=== PATIENT | female | born 1950 | race African-American/Black ===

== ENCOUNTER 2017-01-15 09:18 | Observation (INO) | payer OTHER ==
[~2017-01-15] VITALS: Ht 170.2 cm; Wt 145.1 kg
[~2017-01-15 09:18] MED LIST: ALLO100T PO; ALPR0.254 PO; AZIT250T PO; CALC600T4 PO; CETI10TA22 PO; CINA30TA PO; CITA10TA8 PO; CLON0.1T PO; CLOP75TA PO; CYCL10TA2 PO; GABA-586 PO; HYDR-2666 PO; INSU100I17 SQ; INSU100I27 SQ; LEVE500T56 PO; METO10TA81 PO; OMEP20CA9 PO; PRED-220 PO; PROAIR HFA8.5 GM IH; SENN8.6C2 PO; SIMV40TA3 PO; VIT1TABL PO
--- NOTE | 2017-01-15 10:41 | RAD ---
Portable chest, 01/15/2017: History: Syncope Comparison is made to a study from 07/31/2015. Vascular stents are projected over the right innominate and subclavian vein regions. The heart is enlarged. The pulmonary vascularity is within normal limits. There is minimal linear scarring in the left base. No acute infiltrates are seen. There is no evidence of pleural fluid. There is been no significant change since the previous study. IMPRESSION: 1. Mild cardiomegaly. 2. No acute abnormality is detected.
[2017-01-15 11:49] LABS: BASO % 1 % (0-3); EOS % 1 % (0-3); HEMATOCRIT 40.2 % (36.0-47.0); HEMOGLOBIN 12.8 g/dL (12.0-15.5); LYMPH # 0.9 x10^3/uL (1.0-4.8); LYMPH % 15 % (24-48); MEAN CORPUSCULAR HEMOGLOBIN 32 pg (25-35); MEAN CORPUSCULAR HGB CONC 32 g/dL (31-37); MEAN CORPUSCULAR VOLUME 100 fL (79-100); MONO % 8 % (0-9); NEUT % 76 % (31-73); PLATELET COUNT 128 x10^3/uL (140-400); RED BLOOD COUNT 4.03 x10^6/uL (3.50-5.40); RED CELL DISTRIBUTION WIDTH 14.5 % (11.5-14.5); WHITE BLOOD COUNT 6.4 x10^3/uL (4.0-11.0)
--- NOTE | 2017-01-15 11:50 | EKG ---
[facility] [address] [place] [address] Test Date: 2017-01-15 Test Time: 10:10:24 Pat Name: MARKUS HE Department: Room: Gender: F [employer] Maker: : 1950 Requested By: MIGUE MARTE Order Number: [id number] Reading MD: Ilana Gar Measurements Intervals [place] Rate: 77 P: 45 UT: 168 QRS: 48 QRSD: 86 T: 47 QT: 400 QTc: 455 Interpretive Statements SINUS RHYTHM NORMAL EKG Electronically Signed On 01-17-2017 20:16:47 [employer] by Ilana Gar
[2017-01-15 11:56] LABS: CALCIUM 8.8 mg/dL (8.5-10.1); CREATININE 7.2 mg/dL (0.6-1.0); GFR 6.9; POTASSIUM 5.2 mmol/L (3.5-5.1)
[2017-01-15 12:01] LABS: ALBUMIN 3.2 g/dL (3.4-5.0); DIRECT BILIRUBIN 0.1 mg/dL (0.0-0.2); TOTAL BILIRUBIN 0.4 mg/dL (0.2-1.0); TOTAL PROTEIN 7.7 g/dL (6.4-8.2)
--- NOTE | 2017-01-15 12:44 | PHYS DOC ---
Past Medical History Past Medical History: CVA, Diabetes-Type II, Renal Disease, Renal Failure, Seizure, Other Past Surgical History: Other Additional Past Surgical Histo: Dialysis shunt R) upper arm being used, shunt in left arm-not used anymore. Alcohol Use: None Drug Use: None Adult General Chief Complaint Chief Complaint: SYNCOPE HPI HPI 66-year-old female presenting to the emergency department today after having a syncopal episode while at dialysis today. EMS reports they were taking fluid off when she passed out. She arrives by EMS today. She denies any pain or shortness of breath. Currently she reports feeling "fine". She does have a history of a CVA at the past for which she uses a motorized wheelchair. EMS reports the patient is a baseline neurologic condition. Onset today. Location generalized. Duration intermittent. No alleviating factors present. Review of systems is negative for chest pain shortness of breath nausea vomiting diarrhea. All other review of systems is negative unless otherwise noted in history of present illness. Review of Systems Review of Systems SEE ABOVE. Current Medications Current Medications Current Medications Medications (Trade) Dose Ordered Sig/Yumiko Start Time Stop Time Status Last Admin Dose Admin Morphine Sulfate 2 mg PRN Q2HR PRN 01/15/17 13:15 01/16/17 13:14 Ondansetron HCl (Zofran) 4 mg PRN Q8HRS PRN 01/15/17 13:15 01/16/17 13:14 Allergies Allergies Allergies Coded Allergies Type Severity Reaction Last Updated Verified No Known Drug Allergies 07/19/15 No Physical Exam Physical Exam Constitutional: Well developed, well nourished, no acute distress, non-toxic appearance. HENT: Normocephalic, atraumatic, bilateral external ears normal, oropharynx moist, no oral exudates, nose normal. [] Eyes: PERRLA, EOMI, conjunctiva normal, no discharge. Neck: Normal range of motion, no tenderness, supple, no stridor. [] Cardiovascular:Heart rate regular rhythm, no murmur Lungs & Thorax: Bilateral breath sounds clear to auscultation Abdomen: Bowel sounds normal, soft, no tenderness, no masses, no pulsatile masses. [] Skin: Warm, dry, no erythema, no rash. Back: No tenderness, no CVA tenderness. Extremities: No tenderness, no cyanosis, no clubbing, ROM intact, no edema. Neurologic: Alert and oriented X 3, patient has residual left-sided weakness from history of CVA in the past. Normal sensory function, no new focal neurologic deficits present. Psychologic: Affect normal, judgement normal, mood normal. [] Current Patient Data Vital Signs Vital Signs Date Time Temp Pulse Resp B/P Pulse Ox O2 Delivery O2 Flow Rate FiO2 01/15/17 09:18 97.8 80 21 136/62 100 Nasal Cannula 2 97.8 Lab Values Laboratory Tests Test 01/15/17 11:40 White Blood Count 6.4x10^3/uL (4.0-11.0) Red Blood Count 4.03x10^6/uL (3.50-5.40) Hemoglobin 12.8g/dL (12.0-15.5) Hematocrit 40.2% (36.0-47.0) Mean Corpuscular Volume 100fL (79-100) Mean Corpuscular Hemoglobin 32pg (25-35) Mean Corpuscular Hemoglobin Concent 32g/dL (31-37) Red Cell Distribution Width 14.5% (11.5-14.5) Platelet Count 128x10^3/uL (140-400) L Neutrophils (%) (Auto) 76% (31-73) H Lymphocytes (%) (Auto) 15% (24-48) L Monocytes (%) (Auto) 8% (0-9) Eosinophils (%) (Auto) 1% (0-3) Basophils (%) (Auto) 1% (0-3) Neutrophils # (Auto) 4.9x10^3uL (1.8-7.7) Lymphocytes # (Auto) 0.9x10^3/uL (1.0-4.8) L Monocytes # (Auto) 0.5x10^3/uL (0.0-1.1) Eosinophils # (Auto) 0.0x10^3/uL (0.0-0.7) Basophils # (Auto) 0.0x10^3/uL (0.0-0.2) Sodium Level 143mmol/L (136-145) Potassium Level 5.2mmol/L (3.5-5.1) H Chloride Level 103mmol/L (98-107) Carbon Dioxide Level 31mmol/L (21-32) Anion Gap 9 (6-14) Blood Urea Nitrogen 55mg/dL (7-20) H Creatinine 7.2mg/dL (0.6-1.0) H Estimated GFR (Cockcroft-Gault) 6.9 Glucose Level 157mg/dL (70-99) H Lactic Acid Level 1.4mmol/L (0.4-2.0) Calcium Level 8.8mg/dL (8.5-10.1) Total Bilirubin 0.4mg/dL (0.2-1.0) Direct Bilirubin 0.1mg/dL (0.0-0.2) Aspartate Amino Transferase (AST) 22U/L (15-37) Alanine Aminotransferase (ALT) 16U/L (14-59) Alkaline Phosphatase 80U/L (46-116) Troponin I Quantitative < 0.017ng/mL (0.000-0.055) DD-Mzg-V-Type Natriuretic Peptide 284pg/mL (0-124) H Total Protein 7.7g/dL (6.4-8.2) Albumin 3.2g/dL (3.4-5.0) L Lipase 238U/L (73-393) Laboratory Tests 01/15/17 11:40 Laboratory Tests 01/15/17 11:40 EKG EKG []EKG shows sinus rhythm with regular rate. Normal intervals. Normal axis. ST segments are congruent. Not suggestive of ACS. Reviewed by myself. Radiology/Procedures Radiology/Procedures [] Course & Med Decision Making Course & Med Decision Making Pertinent Labs and Imaging studies reviewed. (See chart for details) 66-year-old female presenting to the emergency department today with syncopal episode. Vital signs afebrile normal heart rate. Satting 2 L which is baseline. Physical exam was otherwise unremarkable. Patient had a history of an old CVA no new deficits present. EKG unremarkable. Chest x-ray unremarkable. Lead work obtained which showed normal CBC. Chemistry panel shows end-stage renal disease. The patient's family arrived later in the emergency department course. I sat down and talked with them. They said their mother was more somnolent than baseline. On my second examination the patient opened her eyes spontaneously she answered questions appropriately. GCS of 15. The patient was then admitted to our hospital for further evaluation workup and care including telemetry monitoring. Neurology and nephrology consult. Shanikaon Disclaimer Dragon Disclaimer This electronic medical record was generated, in whole or in part, using a voice recognition dictation system. Departure Departure Impression: Primary Impression: Syncope Additional Impressions: ESRD (end stage renal disease) Old cerebrovascular accident (CVA) without late effect Disposition: 09 ADMITTED INPATIENT Admitting Physician: Luca Lobo Condition: STABLE Referrals: LUCA LOBO MD (PCP) Patient Instructions: Dialysis, Syncope Problem Qualifiers MIGUE MARTE MD Jan 15, 2017 12:44
[2017-01-15] MEDS ORDERED: ONDANSETRON PF 4 MG/2 ML VIAL. IV PRN (13:15)
[2017-01-15] MEDS ORDERED: MORPHINE SULFATE 2 MG/ML DISP.SYRIN. IV PRN (13:15)
--- NOTE | 2017-01-15 13:55 | RAD ---
EXAM: Left knee, 3 views HISTORY: Left knee pain after a fall.. COMPARISON: 02/25/2012. FINDINGS: Osteopenia is moderate to severe. A Pelligrini-Stieda lesion is noted medially. Alignment is normal. There is no joint effusion. There are limitations from underpenetration. Atherosclerotic calcifications are noted. There is no joint effusion. There is [id number] tricompartmental joint space narrowing. IMPRESSION: 1. Limited projections. No fracture. 2. Moderate to severe osteopenia. 3. Mild to moderate tricompartmental osteoarthritis. 4. Chronic injury to the medial collateral ligament.
--- NOTE | 2017-01-15 13:56 | RAD ---
EXAM: Frontal pelvis with 2V left hip. HISTORY: Left hip pain after fall. COMPARISON: 01/12/2012. FINDINGS: There are limitations from severe osteopenia. Sensitivity for nondisplaced fractures is decreased. None are seen. There is some rotational to the left. Osteoarthritis is mild to moderate on the left greater than right. There are moderate degenerative changes of the lower lumbar spine. Atherosclerotic calcifications are noted IMPRESSION: 1. Severe osteopenia significantly lowers sensitivity for nondisplaced fractures. None are seen. 2. Mild to moderate bilateral hip osteoarthritis. 3. Correlate for chronic ileus.
--- NOTE | 2017-01-15 14:09 | RAD ---
EXAM: CT head without contrast. HISTORY: Syncope. TECHNIQUE: Computed tomography of the head was performed without intravenous contrast. COMPARISON: 07/31/2015. FINDINGS: There is no intracranial hemorrhage. There is encephalomalacia secondary to chronic right parietal infarct, stable. Mild hypoattenuation within the periventricular white matter indicates mild chronic small vessel ischemic change. The ventricles are normal in size and position. The visualized paranasal sinuses appear clear. There is moderate appearing bilateral proptosis. There is no orbital mass. The temporal bones are unremarkable. The calvarium reveals no suspicious lesions. IMPRESSION: 1. No acute intracranial findings. 2. Chronic right parietal infarct. Mild chronic small vessel ischemic white matter change. 3. Bilateral proptosis without an orbital mass. Correlate clinically. *One or more of the following individualized dose reduction techniques were utilized for this examination: 1. Automated exposure control. 2. Adjustment of the mA and/or kV according to patient size. 3. Use of iterative reconstruction technique.
--- NOTE | 2017-01-15 14:30 | ACF ---
Admission Forms Criteria RENAL FAILURE, CHRONIC Clinical Indications for Admission to Inpatient Care (Place 'X' for any and all applicable criteria): Admission is indicated for ANY ONE of the following (1)(2)(3)(4)(5): [ ]I. Inpatient admission required rather than observation care (Use Renal Failure, Chronic: Observation Care Criteria as appropriate) because of ANY ONE of the following: [ ]a) Volume overload or uremic symptoms (eg, clinically significant pulmonary edema, hypertension, pericarditis, acidosis) too severe for, or not responsive (eg, for over 24 hours) to emergency department or observation care dialysis or treatment regimen (11) [ ]b) Hemodynamic instability that is severe or persistent [ ]c) Respiratory distress that is severe or persistent (11) [ ]d) Clinically significant electrolyte abnormality that requires inpatient care (eg,hyperkalemia with severe ECG findings)[B] [ ]e) Supplement O2 or respiratory therapy for over 24hrs that is performable only in acute inpatient setting [ ]f) Continuous IV infusion of anticoagulation, platelet inhibitor, vasoactive, or Antiarrhythmic medication (15), [ ]g) Pulmonary artery catheter monitoring [ ]h) Temporary pacemaker placement [ ]i) Emergent pericardiocentesis [ ]j) Other condition, treatment or monitoring requiring inpatient admission [X]II. Unexplained syncope [A] [ ]III. Recurrent seizures [ ]IV. Severe infections not treatable in outpatient setting (eg, peritonitis)(9 ) [ ]V. Cardiac arrhythmias of immediate concern [ ]. Encephalopathy [ ]VII.Bleeding abnormalities (eg, platelet dysfunction) with active (eg, gastrointestinal) bleeding Extended stay beyond goal length of stay may be needed for (3)(4)(35)(36): [ ]a) Continuing uremic complications [ ]b) Comorbidities or complications The original [email or web address] content created by [employer] has been revised. The portions of the content which have been revised are identified through the use of italic text or in bold, and [email or web address] has neither reviewed nor approved the modified material. All other unmodified content is copyright [employer]. Please see references footnoted in the original [email or web address] edition 2016 Admission Criteria Met?: Yes CHITO POWELL Jan 15, 2017 14:30
[2017-01-15] MEDS ORDERED: HYDROCODONE/APAP 5/325MG TABLET. PO PRN (16:15)
[2017-01-15] MEDS ORDERED: NON FORMULARY ITEM (Albuterol Sulfate (Proair Hfa Inhaler) 2 PUFF) IH SCH (16:15)
[2017-01-15] MEDS ORDERED: ALPRAZOLAM 0.25 MG TABLET PO PRN (16:15)
[2017-01-15 16:30] VITALS: BP 142/58
[2017-01-15] MEDS ORDERED: ALBUTEROL SULFATE 2.5 MG/3 ML NEBU. NEB PRN (16:30)
[2017-01-15] MEDS ORDERED: DEXTROSE 50% 25 GM / 50ML DISP.SYRIN. IV PRN (16:30)
[2017-01-15] MEDS: INSULIN ASPART 300 UNITS/3 ML INSULN.PEN SQ SCH (17:00)
[2017-01-15] MEDS: CALCIUM ACETATE 667 MG CAPSULE PO SCH (18:25)
[2017-01-15] MEDS: METOCLOPRAMIDE 10 MG TABLET PO SCH ×2 (18:25→21:56)
[2017-01-15 19:05] VITALS: BP 140/56
[2017-01-15] MEDS ORDERED: GABAPENTIN 300 MG CAPSULE. PO SCH (21:00)
[2017-01-15] MEDS: SENNOSIDES 8.6 MG TABLET PO SCH (21:55)
[2017-01-15] MEDS: CETIRIZINE HCL 10 MG TABLET PO SCH (21:55)
[2017-01-15] MEDS: SIMVASTATIN 40 MG TABLET. PO SCH (21:55)
[2017-01-15] MEDS: LEVETIRACETAM 500 MG TABLET PO SCH (21:57)
[2017-01-15] MEDS: HEPARIN PF for SUB-Q USE 5,000 UNIT/0.5 ML VIAL. SQ SCH (22:12)
[2017-01-15] MEDS: INSULIN DETEMIR 300 UNITS/3 ML INSULN.PEN. SQ SCH (22:13)
[2017-01-15 23:10] VITALS: BP 142/69
[2017-01-16] VITALS (7 sets, daily range): BP systolic 120–150; BP diastolic 41–71
[2017-01-16] MEDS ORDERED: XOPENEX HFA15 GM IH (02:33)
[2017-01-16] MEDS ORDERED: phoslo PO (02:56)
[2017-01-16] MEDS ORDERED: NALO25TA2 PO (02:56)
[2017-01-16] MEDS: HEPARIN PF for SUB-Q USE 5,000 UNIT/0.5 ML VIAL. SQ SCH ×2 (06:12→22:20)
[2017-01-16] MEDS: INSULIN ASPART 300 UNITS/3 ML INSULN.PEN SQ SCH ×3 (08:00→17:12)
[2017-01-16] MEDS: LEVETIRACETAM 500 MG TABLET PO SCH ×2 (08:00→22:14)
[2017-01-16] MEDS: PANTOPRAZOLE 40 MG TABLET. PO SCH (08:00)
[2017-01-16] MEDS: SENNOSIDES 8.6 MG TABLET PO SCH (08:00)
[2017-01-16] MEDS: CLOPIDOGREL BISULFATE 75 MG TABLET PO SCH (08:00)
[2017-01-16] MEDS: METOCLOPRAMIDE 10 MG TABLET PO SCH ×4 (08:01→22:13)
[2017-01-16] MEDS: CALCIUM ACETATE 667 MG CAPSULE PO SCH ×3 (08:01→17:10)
[2017-01-16] MEDS: CINACALCET HCL 30 MG TABLET PO SCH (08:08)
[2017-01-16] MEDS: ALLOPURINOL 100 MG TABLET. PO SCH (08:08)
[2017-01-16] MEDS: CITALOPRAM 10 MG TABLET. PO SCH (08:08)
[2017-01-16] MEDS ORDERED: VITAMIN B COMPLEX TABLET. PO SCH (09:00)
--- NOTE | 2017-01-16 09:56 | PDOC1 ---
HISTORY AND PHYSICAL Chief Complaint Chief Complaint This 66 year old female has been admitted with a chief complaint of syncope. She is ESRD patient with hemodialysis 3 times weekly. She missed dialysis on Wednesday due to acute on chronic L sided pain. She went to dialysis yesterday and after completing she became unresponsive. She was transported to ED by EMS. Labs were unremarkable except for K 5.2. EKG SR no acute changes. Xrays of the L knee: osteopenia, tricompartment DJD, and chronic medial lat ligament injury. Xray pelvixs and hips: osteopenia and OA. She is admitted for further evaluation and treatment. Problem List Problems Medical Problems: (1) ESRD (end stage renal disease) Status: Acute (2) Old cerebrovascular accident (CVA) without late effect Status: Acute (3) Syncope Status: Acute Past Medical History Cardiovascular: CHF, HTN, Hyperlipidemia CENTRAL NERVOUS SYSTEM: CVA (R parietal ), Seizure GI: Constipation, Other Heme/Onc: Anemia NOS Psych: Depression Musculoskeletal: Osteoarthritis (L knee, bilateral hip ), Other Rheumatologic: Gout ENT: Allergic Rhinitis Renal/: Chronic renal failure (ESRD hemodialysis 3x/week), Other Endocrine: Diabetes (type II neuropathy chronic insulin ), Hypothyroidism, Hyperparathyroidism (secondary ), Osteopenia Past Surgical History Past Surgical History: Cholecystectomy, , Hysterectomy Past Family History Family History: Coronary Artery Disease, Hypertension, Kidney Disease Past Social History PSH negative h/o tobacco, EtOH or illicit drug use. Review of Symptoms Review of Symptoms A 14 point ROS was completed with the following noted as positive: Other systems reviewed and negative. Medications Current Medications Acetaminophen/ Hydrocodone Bitart (Lortab 5/325) 1 tab PRN Q6HRS PRN PO PAIN; Start 01/15/17 at 16:15 Albuterol Sulfate (Ventolin Neb Soln) 2.5 mg PRN Q4HRS PRN NEB SHORTNESS OF BREATH; Start 01/15/17 at 16:30 Allopurinol (Zyloprim) 100 mg DAILY PO Last administered on 01/16/17t 08:08; Start 01/16/17 at 09:00 Alprazolam (Xanax) 0.25 mg PRN BID PRN PO ANXIETY / AGITATION; Start 01/15/17 at 16:15 Calcium Acetate (Phoslo) 1,334 mg TIDWMEALS PO Last administered on 01/16/17 08:01; Start 01/15/17 at 17:00 Cetirizine HCl (Zyrtec) 10 mg HS PO Last administered on 01/15/17 21:55; Start 01/15/17 at 21:00 Cinacalcet (Sensipar) 30 mg DAILY PO Last administered on 01/16/17 08:08; Start 01/16/17 at 09:00 Citalopram Hydrobromide (Celexa) 10 mg DAILY PO Last administered on 01/16/17 08:08; Start 01/16/17 at 09:00 Clopidogrel Bisulfate (Plavix) 75 mg DAILYWBKFT PO Last administered on 08:00; Start 01/16/17 at 08:00 Dextrose 12.5 gm PRN Q15MIN PRN IV SEE COMMENTS; Start 01/15/17 at 16:30 Gabapentin (Neurontin) 300 mg HS PO Last administered on 01/15/17 21:55; Start 01/15/17 at 21:00 Heparin Sodium (Porcine) 5,000 unit Q8HRS SQ Last administered on 01/16/17 06: 12; Start 01/15/17 at 22:00 Insulin Aspart (Novolog) 0-7 UNITS TIDWMEALS SQ Last administered on 01/15/17 17:00; Start 01/15/17 at 17:00 Insulin Detemir (Levemir) 30 units QHS SQ Last administered on 01/15/17 22:13 ; Start 01/15/17 at 21:00 Levetiracetam (Keppra) 500 mg BID PO Last administered on 01/16/17 08:00; Start 01/15/17 at 21:00 Metoclopramide HCl (Reglan) 5 mg QIDACHS PO Last administered on 01/16/17 08: 01; Start 01/15/17 at 16:30 Morphine Sulfate 2 mg PRN Q2HR PRN IV PAIN; Start 01/15/17 at 13:15; Stop 01/16 at 13:14 Non-Formulary Medication 2 puff PRN Q4-6HRS IH ; Start 01/15/17 at 16:15; Status UNV Ondansetron HCl (Zofran) 4 mg PRN Q8HRS PRN IV NAUSEA/VOMITING; Start 01/15/17 at 13:15; Stop 01/16/17 at 13:14 Pantoprazole Sodium (Protonix) 40 mg DAILYAC PO Last administered on 01/16/17 08:00; Start 01/16/17 at 07:30 Sennosides (Senna) 8.6 mg BID PO Last administered on 01/16/17 08:00; Start at 21:00 Simvastatin (Zocor) 40 mg QHS PO Last administered on 01/15/17 21:55; Start at 21:00 Vitamin B Complex (Filippo B) 1 tab DAILY PO Last administered on 01/16/17 08:07 ; Start 01/16/17 at 09:00 Allergy Allergies Coded Allergies Type Severity Reaction Last Updated Verified No Known Drug Allergies 07/19/15 No Physical Exam Physical Exam General appearance - alert,well appearing, and in no distress and oriented to person, place, and time Mental Status - alert, oriented to person, place, and time, affect appropriate to mood Head - normal Chest - clear to auscultation, no wheezes, rales or rhonchi, symmetric air entry Heart - S1 and S2 normal Abdomen - soft, nontender, nondistended, no masses or organomegaly Neurological - alert and oriented Musculoskeletal - no muscular tenderness noted Extremities - no pedal edema Skin - warm and dry VTE Prophylaxis Ordered VTE Prophylaxis Devices: No VTE Pharmacological Prophylaxi: No Assessment Labs Laboratory Tests Test 01/15/17 11:40 01/15/17 18:00 01/15/17 22:04 01/16/17 07:16 White Blood Count 6.4x10^3/uL (4.0-11.0) Red Blood Count 4.03x10^6/uL (3.50-5.40) Hemoglobin 12.8g/dL (12.0-15.5) Hematocrit 40.2% (36.0-47.0) Mean Corpuscular Volume 100fL (79-100) Mean Corpuscular Hemoglobin 32pg (25-35) Mean Corpuscular Hemoglobin Concent 32g/dL (31-37) Red Cell Distribution Width 14.5% (11.5-14.5) Platelet Count 128x10^3/uL (140-400) Neutrophils (%) (Auto) 76% (31-73) Lymphocytes (%) (Auto) 15% (24-48) Monocytes (%) (Auto) 8% (0-9) Eosinophils (%) (Auto) 1% (0-3) Basophils (%) (Auto) 1% (0-3) Neutrophils # (Auto) 4.9x10^3uL (1.8-7.7) Lymphocytes # (Auto) 0.9x10^3/uL (1.0-4.8) Monocytes # (Auto) 0.5x10^3/uL (0.0-1.1) Eosinophils # (Auto) 0.0x10^3/uL (0.0-0.7) Basophils # (Auto) 0.0x10^3/uL (0.0-0.2) Sodium Level 143mmol/L (136-145) Potassium Level 5.2mmol/L (3.5-5.1) Chloride Level 103mmol/L (98-107) Carbon Dioxide Level 31mmol/L (21-32) Anion Gap 9 (6-14) Blood Urea Nitrogen 55mg/dL (7-20) Creatinine 7.2mg/dL (0.6-1.0) Estimated GFR (Cockcroft-Gault) 6.9 Glucose Level 157mg/dL (70-99) Lactic Acid Level 1.4mmol/L (0.4-2.0) Calcium Level 8.8mg/dL (8.5-10.1) Total Bilirubin 0.4mg/dL (0.2-1.0) Direct Bilirubin 0.1mg/dL (0.0-0.2) Aspartate Amino Transf (AST/SGOT) 22U/L (15-37) Alanine Aminotransferase (ALT/SGPT) 16U/L (14-59) Alkaline Phosphatase 80U/L (46-116) Troponin I Quantitative < 0.017ng/mL (0.000-0.055) PO-Ert-P-Type Natriuretic Peptide 284pg/mL (0-124) Total Protein 7.7g/dL (6.4-8.2) Albumin 3.2g/dL (3.4-5.0) Lipase 238U/L (73-393) Glucose (Fingerstick) 183mg/dL (70-99) 158mg/dL (70-99) 136mg/dL (70-99) Laboratory Tests Test 01/15/17 11:40 01/15/17 18:00 01/15/17 22:04 01/16/17 07:16 White Blood Count 6.4x10^3/uL (4.0-11.0) Red Blood Count 4.03x10^6/uL (3.50-5.40) Hemoglobin 12.8g/dL (12.0-15.5) Hematocrit 40.2% (36.0-47.0) Mean Corpuscular Volume 100fL (79-100) Mean Corpuscular Hemoglobin 32pg (25-35) Mean Corpuscular Hemoglobin Concent 32g/dL (31-37) Red Cell Distribution Width 14.5% (11.5-14.5) Platelet Count 128x10^3/uL (140-400) Neutrophils (%) (Auto) 76% (31-73) Lymphocytes (%) (Auto) 15% (24-48) Monocytes (%) (Auto) 8% (0-9) Eosinophils (%) (Auto) 1% (0-3) Basophils (%) (Auto) 1% (0-3) Neutrophils # (Auto) 4.9x10^3uL (1.8-7.7) Lymphocytes # (Auto) 0.9x10^3/uL (1.0-4.8) Monocytes # (Auto) 0.5x10^3/uL (0.0-1.1) Eosinophils # (Auto) 0.0x10^3/uL (0.0-0.7) Basophils # (Auto) 0.0x10^3/uL (0.0-0.2) Sodium Level 143mmol/L (136-145) Potassium Level 5.2mmol/L (3.5-5.1) Chloride Level 103mmol/L (98-107) Carbon Dioxide Level 31mmol/L (21-32) Anion Gap 9 (6-14) Blood Urea Nitrogen 55mg/dL (7-20) Creatinine 7.2mg/dL (0.6-1.0) Estimated GFR (Cockcroft-Gault) 6.9 Glucose Level 157mg/dL (70-99) Lactic Acid Level 1.4mmol/L (0.4-2.0) Calcium Level 8.8mg/dL (8.5-10.1) Total Bilirubin 0.4mg/dL (0.2-1.0) Direct Bilirubin 0.1mg/dL (0.0-0.2) Aspartate Amino Transf (AST/SGOT) 22U/L (15-37) Alanine Aminotransferase (ALT/SGPT) 16U/L (14-59) Alkaline Phosphatase 80U/L (46-116) Troponin I Quantitative < 0.017ng/mL (0.000-0.055) NY-Ynp-X-Type Natriuretic Peptide 284pg/mL (0-124) Total Protein 7.7g/dL (6.4-8.2) Albumin 3.2g/dL (3.4-5.0) Lipase 238U/L (73-393) Glucose (Fingerstick) 183mg/dL (70-99) 158mg/dL (70-99) 136mg/dL (70-99) Plan Plan 1. syncopal episode witnessed 2. ESRD hemodialysis MWF 3. HTN 4. DM II chronic insulin with neuropathy 5. seizure disorder 6. h/o CVA with L hemiparesis 7. hyperlipidemia 8. depression 9. gout 10. secondary hyperparathyroidism 11. GERD 12. OA hips/L knee 13. osteopenia 14. allergic rhinitis 15. hypothyroid 16. morbid obesity 17. moderate chronic PCL malnutrition PLAN: syncope neurology consult check TSH Ft4 check orthostatic -lying to sitting only CHF check ECHO ESRD nephrology consult Dx MWF DM II neuropathy FSBS/SSI Levemir 30u at hs-home dose novolog 20u TID ac-home dose gabapentin changed to lyrica by Dr. Lobo at last appt. weakness/debility PT eval treat DVT/GI prophylaxis heparin q12 PPI For more details regarding further plans, please refer to the orders. MIRIAM RODRIGUEZ APRN Jan 16, 2017 09:56
[2017-01-16] MEDS ORDERED: MECLIZINE HCL 12.5 MG TABLET. PO PRN (10:00)
[2017-01-16] MEDS ORDERED: CYCLOBENZAPRINE 10 MG TABLET. PO PRN (10:00)
[2017-01-16 12:17] LABS: BASO % 1 % (0-3); EOS % 2 % (0-3); HEMATOCRIT 37.8 % (36.0-47.0); HEMOGLOBIN 11.9 g/dL (12.0-15.5); LYMPH # 1.7 x10^3/uL (1.0-4.8); LYMPH % 32 % (24-48); MEAN CORPUSCULAR HEMOGLOBIN 32 pg (25-35); MEAN CORPUSCULAR HGB CONC 32 g/dL (31-37); MEAN CORPUSCULAR VOLUME 102 fL (79-100); MONO % 10 % (0-9); NEUT % 56 % (31-73); PLATELET COUNT 128 x10^3/uL (140-400); RED BLOOD COUNT 3.71 x10^6/uL (3.50-5.40); RED CELL DISTRIBUTION WIDTH 13.9 % (11.5-14.5); WHITE BLOOD COUNT 5.3 x10^3/uL (4.0-11.0)
[2017-01-16 12:24] LABS: CALCIUM 8.7 mg/dL (8.5-10.1); GFR 5.3; POTASSIUM 5.9 mmol/L (3.5-5.1)
[2017-01-16 12:39] LABS: FREE T4 0.88 ng/dL (0.76-1.46)
[2017-01-16] MEDS: ALBUTEROL SULFATE 2.5 MG/3 ML NEBU. NEB SCH ×3 (13:00→20:00)
--- NOTE | 2017-01-16 16:11 | PDOC2 ---
CONSULT Date of Consult Date of Consult DATE: 01/16/17 TIME: 16:06 Reason for Consult Reason for Consult: syncope History of Present Illness Reason for Visit: This patient is 66-year-old -[place] woman who presented with complaint syncope. She has history of end-stage renal disease on hemodialysis 3 times weekly with history of CVA with left hemiplegia.She reports she missed dialysis on Wednesday due to acute on chronic pain. She underwent dialysis yesterday and felt lightheadedness and passing out episode. She presented to the emergency room via EMS. She currently denies any complaint of nausea, vomiting, dizziness , headache, chest pain, shortness of breath. Past Medical History Cardiovascular: CHF, HTN, Hyperlipidemia CENTRAL NERVOUS SYSTEM: CVA (R parietal ), Seizure GI: Constipation, Other Heme/Onc: Anemia NOS Psych: Depression Musculoskeletal: Osteoarthritis (L knee, bilateral hip ), Other Rheumatologic: Gout ENT: Allergic Rhinitis Renal/: Chronic renal failure (ESRD hemodialysis 3x/week), Other Endocrine: Diabetes (type II neuropathy chronic insulin ), Hypothyroidism, Hyperparathyroidism (secondary ), Osteopenia Past Surgical History Past Surgical History: Cholecystectomy, , Hysterectomy Family History Family History: Coronary Artery Disease, Hypertension, Kidney Disease Current Problem List Problem List Problems Medical Problems: (1) ESRD (end stage renal disease) Status: Acute (2) Old cerebrovascular accident (CVA) without late effect Status: Acute (3) Syncope Status: Acute Current Medications Current Medications Current Medications Ondansetron HCl (Zofran) 4 mg PRN Q8HRS PRN IV NAUSEA/VOMITING; Start 01/15/17 at 13:15; Stop 01/16/17 at 13:14; Status DC Morphine Sulfate 2 mg PRN Q2HR PRN IV PAIN; Start 01/15/17 at 13:15; Stop 01/16 at 13:14; Status DC Allopurinol (Zyloprim) 100 mg DAILY PO Last administered on 01/16/17 08:08; Start 01/16/17 at 09:00 Alprazolam (Xanax) 0.25 mg PRN BID PRN PO ANXIETY / AGITATION; Start 01/15/17 at 16:15; Stop 01/16/17 at 10:07; Status DC Cetirizine HCl (Zyrtec) 10 mg HS PO Last administered on 01/15/17 21:55; Start 01/15/17 at 21:00 Cinacalcet (Sensipar) 30 mg DAILY PO Last administered on 01/16/17 08:08; Start 01/16/17 at 09:00 Citalopram Hydrobromide (Celexa) 10 mg DAILY PO Last administered on 01/16/17 08:08; Start 01/16/17 at 09:00 Clopidogrel Bisulfate (Plavix) 75 mg DAILYWBKFT PO Last administered on 08:00; Start 01/16/17 at 08:00 Gabapentin (Neurontin) 300 mg HS PO Last administered on 01/15/17 21:55; Start 01/15/17 at 21:00; Stop 01/16/17 at 10:07; Status DC Acetaminophen/ Hydrocodone Bitart (Lortab 5/325) 1 tab PRN Q6HRS PRN PO PAIN; Start 01/15/17 at 16:15 Insulin Detemir (Levemir) 30 units QHS SQ Last administered on 01/15/17 22:13 ; Start 01/15/17 at 21:00 Levetiracetam (Keppra) 500 mg BID PO Last administered on 01/16/17 08:00; Start 01/15/17 at 21:00; Stop 01/16/17 at 10:07; Status DC Metoclopramide HCl (Reglan) 5 mg QIDACHS PO Last administered on 01/16/17 12: 29; Start 01/15/17 at 16:30 Simvastatin (Zocor) 40 mg QHS PO Last administered on 01/15/17 21:55; Start at 21:00 Non-Formulary Medication 2 puff PRN Q4-6HRS IH ; Start 01/15/17 at 16:15; Status UNV Calcium Acetate (Phoslo) 1,334 mg TIDWMEALS PO Last administered on 01/16/17 08:01; Start 01/15/17 at 17:00; Stop 01/16/17 at 10:07; Status DC Pantoprazole Sodium (Protonix) 40 mg DAILYAC PO Last administered on 01/16/17 08:00; Start 01/16/17 at 07:30 Sennosides (Senna) 8.6 mg BID PO Last administered on 01/16/17 08:00; Start at 21:00; Stop 01/16/17 at 10:07; Status DC Vitamin B Complex (Filippo B) 1 tab DAILY PO Last administered on 01/16/17 08:07 ; Start 01/16/17 at 09:00; Stop 01/16/17 at 10:07; Status DC Insulin Aspart (Novolog) 0-7 UNITS TIDWMEALS SQ Last administered on 01/16/17 12:28; Start 01/15/17 at 17:00 Dextrose 12.5 gm PRN Q15MIN PRN IV SEE COMMENTS; Start 01/15/17 at 16:30 Heparin Sodium (Porcine) 5,000 unit Q8HRS SQ Last administered on 01/16/17 06: 12; Start 01/15/17 at 22:00; Stop 01/16/17 at 09:33; Status DC Albuterol Sulfate (Ventolin Neb Soln) 2.5 mg PRN Q4HRS PRN NEB SHORTNESS OF BREATH; Start 01/15/17 at 16:30; Stop 01/16/17 at 13:00; Status DC Heparin Sodium (Porcine) 5,000 unit Q12HR SQ ; Start 01/16/17 at 21:00 Albuterol Sulfate (Ventolin Neb Soln) 2.5 mg RTQID NEB ; Start 01/16/17 at 13:00 Alprazolam (Xanax) 0.25 mg PRN DAILY PRN PO ANXIETY / AGITATION; Start at 16:15 Calcium Acetate (Phoslo) 667 mg TIDWMEALS PO Last administered on 01/16/17 12: 29; Start 01/16/17 at 12:00 Levetiracetam (Keppra) 1,000 mg BID PO ; Start 01/16/17 at 21:00 Sennosides (Senna) 17.2 mg DAILY PO ; Start 01/17/17 at 09:00 Vitamin B Complex/ Vitamin C (Nephro-Britton) 1 tab DAILY PO ; Start 01/17/17 at 09 :00 Cyclobenzaprine HCl (Flexeril) 10 mg PRN BID PRN PO MUSCLE SPASMS; Start 2/25/ 17 at 10:00 Meclizine HCl (Antivert) 12.5 mg PRN TID PRN PO DIZZINESS; Start 01/16/17 at 10 :00 Pregabalin (Lyrica) 75 mg HS PO ; Start 01/16/17 at 21:00 Active Scripts Active Levemir Flextouch (Insulin Detemir) 300 Units/3 Ml Insuln.pen 30 Units SQ QHS Novolog Flexpen (Insulin Aspart) 300 Units/3 Ml Insuln.pen 15 Units SQ TIDAC Reported [phoslo] 2,001 Mg PO TID Movantik (Naloxegol Oxalate) 25 Mg Tablet 25 Mg PO DAILY Xopenex Hfa (Levalbuterol Tartrate) 15 Gm Hfa.aer.ad 2 Puff IH QID Keppra (Levetiracetam) 500 Mg Tablet 1 Tab PO BID Vol-Care Rx Tablet (Vit B Cmplx 3/Fa/Vit C/Biotin) 1 Each Tablet 1 Each PO DAILY Clopidogrel (Clopidogrel Bisulfate) 75 Mg Tablet 1 Tab PO DAILY Alprazolam 0.25 Mg Tablet 1 Tab PO PRN BID PRN Celexa (Citalopram Hydrobromide) 10 Mg Tablet 1 Tab PO DAILY Allopurinol 100 Mg Tablet 1 Tab PO DAILY Sensipar (Cinacalcet Hcl) 30 Mg Tablet 1 Tab PO DAILY Simvastatin 40 Mg Tablet 1 Tab PO QHS Gabapentin 300 Mg Capsule 1 Cap PO HS Senna (Sennosides) 8.6 Mg Capsule 8.6 Mg PO BID Cyclobenzaprine Hcl 10 Mg Tablet 1 Tab PO BID Reglan (Metoclopramide Hcl) 10 Mg Tablet 5 Mg PO QIDACHS Clonidine Hcl 0.1 Mg Tablet 1 Tab PO TID Hydrocodone-Apap 5-325 (Hydrocodone Bit/Acetaminophen) 1 Each Tablet 1 Tab PO PRN Q6HRS PRN Allergies Allergies: Coded Allergies: No Known Drug Allergies (Unverified , 07/19/15) ROS Review of System not [id number] review of systems. Physical Exam Physical Exam PHYSICAL EXAMINATION: General appearance is in acute distress. HEENT: Normocephalic and nontraumatic. Eyes, nose, ears, and throat are unremarkable. Neck is supple. No lymphadenopathy. No crepitus. Cardiovascular: S1, S2, regular rate and rhythm. Pulmonary: Clear to auscultation bilaterally. Abdomen: Bowel sounds are positive. Abdomen is soft, nontender, and nondistended. Extremities: No rash, lesions, or edema. No restriction of range of motion NEUROLOGICAL EXAMINATION: Alert Oriented to time, place and person. PERRL. EOMI. CN: no focal findings. Muscle tone: within normal. in ride side Muscle strength: 5 right side left wendy DTR: 1- 2 on right Plantar reflex: Flexor response right left mute Gait: not examined in bed. Sensory exam: no abnormal findings. No obvious cerebellar signs elicited on right. Vitals VITALS Vital Signs Date Time Temp Pulse Resp B/P Pulse Ox O2 Delivery O2 Flow Rate FiO2 01/16/17 11:05 76 18 133/57 100 Room Air 01/16/17 11:00 98.0 98.0 01/16/17 08:00 2.0 Labs Labs Laboratory Tests Test 01/15/17 11:40 01/15/17 18:00 01/15/17 22:04 01/16/17 07:16 White Blood Count 6.4x10^3/uL (4.0-11.0) Red Blood Count 4.03x10^6/uL (3.50-5.40) Hemoglobin 12.8g/dL (12.0-15.5) Hematocrit 40.2% (36.0-47.0) Mean Corpuscular Volume 100fL (79-100) Mean Corpuscular Hemoglobin 32pg (25-35) Mean Corpuscular Hemoglobin Concent 32g/dL (31-37) Red Cell Distribution Width 14.5% (11.5-14.5) Platelet Count 128x10^3/uL (140-400) Neutrophils (%) (Auto) 76% (31-73) Lymphocytes (%) (Auto) 15% (24-48) Monocytes (%) (Auto) 8% (0-9) Eosinophils (%) (Auto) 1% (0-3) Basophils (%) (Auto) 1% (0-3) Neutrophils # (Auto) 4.9x10^3uL (1.8-7.7) Lymphocytes # (Auto) 0.9x10^3/uL (1.0-4.8) Monocytes # (Auto) 0.5x10^3/uL (0.0-1.1) Eosinophils # (Auto) 0.0x10^3/uL (0.0-0.7) Basophils # (Auto) 0.0x10^3/uL (0.0-0.2) Sodium Level 143mmol/L (136-145) Potassium Level 5.2mmol/L (3.5-5.1) Chloride Level 103mmol/L (98-107) Carbon Dioxide Level 31mmol/L (21-32) Anion Gap 9 (6-14) Blood Urea Nitrogen 55mg/dL (7-20) Creatinine 7.2mg/dL (0.6-1.0) Estimated GFR (Cockcroft-Gault) 6.9 Glucose Level 157mg/dL (70-99) Lactic Acid Level 1.4mmol/L (0.4-2.0) Calcium Level 8.8mg/dL (8.5-10.1) Total Bilirubin 0.4mg/dL (0.2-1.0) Direct Bilirubin 0.1mg/dL (0.0-0.2) Aspartate Amino Transf (AST/SGOT) 22U/L (15-37) Alanine Aminotransferase (ALT/SGPT) 16U/L (14-59) Alkaline Phosphatase 80U/L (46-116) Troponin I Quantitative < 0.017ng/mL (0.000-0.055) BP-Las-X-Type Natriuretic Peptide 284pg/mL (0-124) Total Protein 7.7g/dL (6.4-8.2) Albumin 3.2g/dL (3.4-5.0) Lipase 238U/L (73-393) Glucose (Fingerstick) 183mg/dL (70-99) 158mg/dL (70-99) 136mg/dL (70-99) Test 01/16/17 11:40 01/16/17 11:46 White Blood Count 5.3x10^3/uL (4.0-11.0) Red Blood Count 3.71x10^6/uL (3.50-5.40) Hemoglobin 11.9g/dL (12.0-15.5) Hematocrit 37.8% (36.0-47.0) Mean Corpuscular Volume 102fL (79-100) Mean Corpuscular Hemoglobin 32pg (25-35) Mean Corpuscular Hemoglobin Concent 32g/dL (31-37) Red Cell Distribution Width 13.9% (11.5-14.5) Platelet Count 128x10^3/uL (140-400) Neutrophils (%) (Auto) 56% (31-73) Lymphocytes (%) (Auto) 32% (24-48) Monocytes (%) (Auto) 10% (0-9) Eosinophils (%) (Auto) 2% (0-3) Basophils (%) (Auto) 1% (0-3) Neutrophils # (Auto) 3.0x10^3uL (1.8-7.7) Lymphocytes # (Auto) 1.7x10^3/uL (1.0-4.8) Monocytes # (Auto) 0.5x10^3/uL (0.0-1.1) Eosinophils # (Auto) 0.1x10^3/uL (0.0-0.7) Basophils # (Auto) 0.0x10^3/uL (0.0-0.2) Sodium Level 140mmol/L (136-145) Potassium Level 5.9mmol/L (3.5-5.1) Chloride Level 101mmol/L (98-107) Carbon Dioxide Level 30mmol/L (21-32) Anion Gap 9 (6-14) Blood Urea Nitrogen 73mg/dL (7-20) Creatinine 9.0mg/dL (0.6-1.0) Estimated GFR (Cockcroft-Gault) 5.3 Glucose Level 210mg/dL (70-99) Calcium Level 8.7mg/dL (8.5-10.1) Thyroid Stimulating Hormone (TSH) 4.098uIU/mL (0.358-3.74) Free Thyroxine 0.88ng/dL (0.76-1.46) Glucose (Fingerstick) 184mg/dL (70-99) Laboratory Tests Test 01/15/17 18:00 01/15/17 22:04 01/16/17 07:16 01/16/17 11:40 Glucose (Fingerstick) 183mg/dL (70-99) 158mg/dL (70-99) 136mg/dL (70-99) White Blood Count 5.3x10^3/uL (4.0-11.0) Red Blood Count 3.71x10^6/uL (3.50-5.40) Hemoglobin 11.9g/dL (12.0-15.5) Hematocrit 37.8% (36.0-47.0) Mean Corpuscular Volume 102fL (79-100) Mean Corpuscular Hemoglobin 32pg (25-35) Mean Corpuscular Hemoglobin Concent 32g/dL (31-37) Red Cell Distribution Width 13.9% (11.5-14.5) Platelet Count 128x10^3/uL (140-400) Neutrophils (%) (Auto) 56% (31-73) Lymphocytes (%) (Auto) 32% (24-48) Monocytes (%) (Auto) 10% (0-9) Eosinophils (%) (Auto) 2% (0-3) Basophils (%) (Auto) 1% (0-3) Neutrophils # (Auto) 3.0x10^3uL (1.8-7.7) Lymphocytes # (Auto) 1.7x10^3/uL (1.0-4.8) Monocytes # (Auto) 0.5x10^3/uL (0.0-1.1) Eosinophils # (Auto) 0.1x10^3/uL (0.0-0.7) Basophils # (Auto) 0.0x10^3/uL (0.0-0.2) Sodium Level 140mmol/L (136-145) Potassium Level 5.9mmol/L (3.5-5.1) Chloride Level 101mmol/L (98-107) Carbon Dioxide Level 30mmol/L (21-32) Anion Gap 9 (6-14) Blood Urea Nitrogen 73mg/dL (7-20) Creatinine 9.0mg/dL (0.6-1.0) Estimated GFR (Cockcroft-Gault) 5.3 Glucose Level 210mg/dL (70-99) Calcium Level 8.7mg/dL (8.5-10.1) Thyroid Stimulating Hormone (TSH) 4.098uIU/mL (0.358-3.74) Free Thyroxine 0.88ng/dL (0.76-1.46) Test 01/16/17 11:46 Glucose (Fingerstick) 184mg/dL (70-99) Assessment/Plan Assessment/Plan This patient is 66-year-old -[place] woman who presented with complaint syncope. She has history of end-stage renal disease on hemodialysis 3 times weekly with history of CVA with left hemiplegia.She reports she missed dialysis on Wednesday due to acute on chronic pain. She underwent dialysis yesterday and felt lightheadedness and passing out episode. She presented to the emergency room via EMS. She currently denies any complaint of nausea, vomiting, dizziness , headache, chest pain, shortness of breath. We will recommend syncope workup Check MRIMRA brain to rule out any acute process Continue secondary stroke prevention Patient is on With history of seizures on keppra is no new seizures as noted History of diabetes neuropathic Continue medication Cardiology workup We will check K Doppler, 2-D echo Continue medical management JUAN C MONTES MD Jan 16, 2017 16:11
[2017-01-16] MEDS ORDERED: ALPRAZOLAM 0.25 MG TABLET PO PRN (16:15)
--- NOTE | 2017-01-16 16:25 | PDOC2 ---
CONSULT Date of Consult Date of Consult DATE: 01/16/17 TIME: 16:24 Past Medical History Cardiovascular: CHF, HTN, Hyperlipidemia CENTRAL NERVOUS SYSTEM: CVA (R parietal ), Seizure GI: Constipation, Other Heme/Onc: Anemia NOS Psych: Depression Musculoskeletal: Osteoarthritis (L knee, bilateral hip ), Other Rheumatologic: Gout ENT: Allergic Rhinitis Renal/: Chronic renal failure (ESRD hemodialysis 3x/week), Other Endocrine: Diabetes (type II neuropathy chronic insulin ), Hypothyroidism, Hyperparathyroidism (secondary ), Osteopenia Past Surgical History Past Surgical History: Cholecystectomy, , Hysterectomy Family History Family History: Coronary Artery Disease, Hypertension, Kidney Disease Current Problem List Problem List Problems Medical Problems: (1) ESRD (end stage renal disease) Status: Acute (2) Old cerebrovascular accident (CVA) without late effect Status: Acute (3) Syncope Status: Acute Current Medications Current Medications Current Medications Ondansetron HCl (Zofran) 4 mg PRN Q8HRS PRN IV NAUSEA/VOMITING; Start 01/15/17 at 13:15; Stop 01/16/17 at 13:14; Status DC Morphine Sulfate 2 mg PRN Q2HR PRN IV PAIN; Start 01/15/17 at 13:15; Stop 01/16 at 13:14; Status DC Allopurinol (Zyloprim) 100 mg DAILY PO Last administered on 01/16/17 08:08; Start 01/16/17 at 09:00 Alprazolam (Xanax) 0.25 mg PRN BID PRN PO ANXIETY / AGITATION; Start 01/15/17 at 16:15; Stop 01/16/17 at 10:07; Status DC Cetirizine HCl (Zyrtec) 10 mg HS PO Last administered on 01/15/17 21:55; Start 01/15/17 at 21:00 Cinacalcet (Sensipar) 30 mg DAILY PO Last administered on 01/16/17 08:08; Start 01/16/17 at 09:00 Citalopram Hydrobromide (Celexa) 10 mg DAILY PO Last administered on 01/16/17 08:08; Start 01/16/17 at 09:00 Clopidogrel Bisulfate (Plavix) 75 mg DAILYWBKFT PO Last administered on 08:00; Start 01/16/17 at 08:00 Gabapentin (Neurontin) 300 mg HS PO Last administered on 01/15/17 21:55; Start 01/15/17 at 21:00; Stop 01/16/17 at 10:07; Status DC Acetaminophen/ Hydrocodone Bitart (Lortab 5/325) 1 tab PRN Q6HRS PRN PO PAIN; Start 01/15/17 at 16:15 Insulin Detemir (Levemir) 30 units QHS SQ Last administered on 01/15/17 22:13 ; Start 01/15/17 at 21:00 Levetiracetam (Keppra) 500 mg BID PO Last administered on 01/16/17 08:00; Start 01/15/17 at 21:00; Stop 01/16/17 at 10:07; Status DC Metoclopramide HCl (Reglan) 5 mg QIDACHS PO Last administered on 01/16/17 12: 29; Start 01/15/17 at 16:30 Simvastatin (Zocor) 40 mg QHS PO Last administered on 01/15/17 21:55; Start at 21:00 Non-Formulary Medication 2 puff PRN Q4-6HRS IH ; Start 01/15/17 at 16:15; Status UNV Calcium Acetate (Phoslo) 1,334 mg TIDWMEALS PO Last administered on 01/16/17 08:01; Start 01/15/17 at 17:00; Stop 01/16/17 at 10:07; Status DC Pantoprazole Sodium (Protonix) 40 mg DAILYAC PO Last administered on 01/16/17 08:00; Start 01/16/17 at 07:30 Sennosides (Senna) 8.6 mg BID PO Last administered on 01/16/17 08:00; Start at 21:00; Stop 01/16/17 at 10:07; Status DC Vitamin B Complex (Filippo B) 1 tab DAILY PO Last administered on 01/16/17 08:07 ; Start 01/16/17 at 09:00; Stop 01/16/17 at 10:07; Status DC Insulin Aspart (Novolog) 0-7 UNITS TIDWMEALS SQ Last administered on 01/16/17 12:28; Start 01/15/17 at 17:00 Dextrose 12.5 gm PRN Q15MIN PRN IV SEE COMMENTS; Start 01/15/17 at 16:30 Heparin Sodium (Porcine) 5,000 unit Q8HRS SQ Last administered on 01/16/17 06: 12; Start 01/15/17 at 22:00; Stop 01/16/17 at 09:33; Status DC Albuterol Sulfate (Ventolin Neb Soln) 2.5 mg PRN Q4HRS PRN NEB SHORTNESS OF BREATH; Start 01/15/17 at 16:30; Stop 01/16/17 at 13:00; Status DC Heparin Sodium (Porcine) 5,000 unit Q12HR SQ ; Start 01/16/17 at 21:00 Albuterol Sulfate (Ventolin Neb Soln) 2.5 mg RTQID NEB ; Start 01/16/17 at 13:00 Alprazolam (Xanax) 0.25 mg PRN DAILY PRN PO ANXIETY / AGITATION; Start at 16:15 Calcium Acetate (Phoslo) 667 mg TIDWMEALS PO Last administered on 01/16/17 12: 29; Start 01/16/17 at 12:00 Levetiracetam (Keppra) 1,000 mg BID PO ; Start 01/16/17 at 21:00 Sennosides (Senna) 17.2 mg DAILY PO ; Start 01/17/17 at 09:00 Vitamin B Complex/ Vitamin C (Nephro-Britton) 1 tab DAILY PO ; Start 01/17/17 at 09 :00 Cyclobenzaprine HCl (Flexeril) 10 mg PRN BID PRN PO MUSCLE SPASMS; Start at 10:00 Meclizine HCl (Antivert) 12.5 mg PRN TID PRN PO DIZZINESS; Start 01/16/17 at 10 :00 Pregabalin (Lyrica) 75 mg HS PO ; Start 01/16/17 at 21:00 Active Scripts Active Levemir Flextouch (Insulin Detemir) 300 Units/3 Ml Insuln.pen 30 Units SQ QHS Novolog Flexpen (Insulin Aspart) 300 Units/3 Ml Insuln.pen 15 Units SQ TIDAC Reported [phoslo] 2,001 Mg PO TID Movantik (Naloxegol Oxalate) 25 Mg Tablet 25 Mg PO DAILY Xopenex Hfa (Levalbuterol Tartrate) 15 Gm Hfa.aer.ad 2 Puff IH QID Keppra (Levetiracetam) 500 Mg Tablet 1 Tab PO BID Vol-Care Rx Tablet (Vit B Cmplx 3/Fa/Vit C/Biotin) 1 Each Tablet 1 Each PO DAILY Clopidogrel (Clopidogrel Bisulfate) 75 Mg Tablet 1 Tab PO DAILY Alprazolam 0.25 Mg Tablet 1 Tab PO PRN BID PRN Celexa (Citalopram Hydrobromide) 10 Mg Tablet 1 Tab PO DAILY Allopurinol 100 Mg Tablet 1 Tab PO DAILY Sensipar (Cinacalcet Hcl) 30 Mg Tablet 1 Tab PO DAILY Simvastatin 40 Mg Tablet 1 Tab PO QHS Gabapentin 300 Mg Capsule 1 Cap PO HS Senna (Sennosides) 8.6 Mg Capsule 8.6 Mg PO BID Cyclobenzaprine Hcl 10 Mg Tablet 1 Tab PO BID Reglan (Metoclopramide Hcl) 10 Mg Tablet 5 Mg PO QIDACHS Clonidine Hcl 0.1 Mg Tablet 1 Tab PO TID Hydrocodone-Apap 5-325 (Hydrocodone Bit/Acetaminophen) 1 Each Tablet 1 Tab PO PRN Q6HRS PRN Allergies Allergies: Coded Allergies: No Known Drug Allergies (Unverified , 07/19/15) Vitals VITALS Vital Signs Date Time Temp Pulse Resp B/P Pulse Ox O2 Delivery O2 Flow Rate FiO2 01/16/17 15:00 98.9 79 18 150/71 100 Room Air 98.9 01/16/17 08:00 2.0 Labs Labs Laboratory Tests Test 01/15/17 11:40 01/15/17 18:00 01/15/17 22:04 01/16/17 07:16 White Blood Count 6.4x10^3/uL (4.0-11.0) Red Blood Count 4.03x10^6/uL (3.50-5.40) Hemoglobin 12.8g/dL (12.0-15.5) Hematocrit 40.2% (36.0-47.0) Mean Corpuscular Volume 100fL (79-100) Mean Corpuscular Hemoglobin 32pg (25-35) Mean Corpuscular Hemoglobin Concent 32g/dL (31-37) Red Cell Distribution Width 14.5% (11.5-14.5) Platelet Count 128x10^3/uL (140-400) Neutrophils (%) (Auto) 76% (31-73) Lymphocytes (%) (Auto) 15% (24-48) Monocytes (%) (Auto) 8% (0-9) Eosinophils (%) (Auto) 1% (0-3) Basophils (%) (Auto) 1% (0-3) Neutrophils # (Auto) 4.9x10^3uL (1.8-7.7) Lymphocytes # (Auto) 0.9x10^3/uL (1.0-4.8) Monocytes # (Auto) 0.5x10^3/uL (0.0-1.1) Eosinophils # (Auto) 0.0x10^3/uL (0.0-0.7) Basophils # (Auto) 0.0x10^3/uL (0.0-0.2) Sodium Level 143mmol/L (136-145) Potassium Level 5.2mmol/L (3.5-5.1) Chloride Level 103mmol/L (98-107) Carbon Dioxide Level 31mmol/L (21-32) Anion Gap 9 (6-14) Blood Urea Nitrogen 55mg/dL (7-20) Creatinine 7.2mg/dL (0.6-1.0) Estimated GFR (Cockcroft-Gault) 6.9 Glucose Level 157mg/dL (70-99) Lactic Acid Level 1.4mmol/L (0.4-2.0) Calcium Level 8.8mg/dL (8.5-10.1) Total Bilirubin 0.4mg/dL (0.2-1.0) Direct Bilirubin 0.1mg/dL (0.0-0.2) Aspartate Amino Transf (AST/SGOT) 22U/L (15-37) Alanine Aminotransferase (ALT/SGPT) 16U/L (14-59) Alkaline Phosphatase 80U/L (46-116) Troponin I Quantitative < 0.017ng/mL (0.000-0.055) HP-Nju-B-Type Natriuretic Peptide 284pg/mL (0-124) Total Protein 7.7g/dL (6.4-8.2) Albumin 3.2g/dL (3.4-5.0) Lipase 238U/L (73-393) Glucose (Fingerstick) 183mg/dL (70-99) 158mg/dL (70-99) 136mg/dL (70-99) Test 01/16/17 11:40 01/16/17 11:46 White Blood Count 5.3x10^3/uL (4.0-11.0) Red Blood Count 3.71x10^6/uL (3.50-5.40) Hemoglobin 11.9g/dL (12.0-15.5) Hematocrit 37.8% (36.0-47.0) Mean Corpuscular Volume 102fL (79-100) Mean Corpuscular Hemoglobin 32pg (25-35) Mean Corpuscular Hemoglobin Concent 32g/dL (31-37) Red Cell Distribution Width 13.9% (11.5-14.5) Platelet Count 128x10^3/uL (140-400) Neutrophils (%) (Auto) 56% (31-73) Lymphocytes (%) (Auto) 32% (24-48) Monocytes (%) (Auto) 10% (0-9) Eosinophils (%) (Auto) 2% (0-3) Basophils (%) (Auto) 1% (0-3) Neutrophils # (Auto) 3.0x10^3uL (1.8-7.7) Lymphocytes # (Auto) 1.7x10^3/uL (1.0-4.8) Monocytes # (Auto) 0.5x10^3/uL (0.0-1.1) Eosinophils # (Auto) 0.1x10^3/uL (0.0-0.7) Basophils # (Auto) 0.0x10^3/uL (0.0-0.2) Sodium Level 140mmol/L (136-145) Potassium Level 5.9mmol/L (3.5-5.1) Chloride Level 101mmol/L (98-107) Carbon Dioxide Level 30mmol/L (21-32) Anion Gap 9 (6-14) Blood Urea Nitrogen 73mg/dL (7-20) Creatinine 9.0mg/dL (0.6-1.0) Estimated GFR (Cockcroft-Gault) 5.3 Glucose Level 210mg/dL (70-99) Calcium Level 8.7mg/dL (8.5-10.1) Thyroid Stimulating Hormone (TSH) 4.098uIU/mL (0.358-3.74) Free Thyroxine 0.88ng/dL (0.76-1.46) Glucose (Fingerstick) 184mg/dL (70-99) Laboratory Tests Test 01/15/17 18:00 01/15/17 22:04 01/16/17 07:16 01/16/17 11:40 Glucose (Fingerstick) 183mg/dL (70-99) 158mg/dL (70-99) 136mg/dL (70-99) White Blood Count 5.3x10^3/uL (4.0-11.0) Red Blood Count 3.71x10^6/uL (3.50-5.40) Hemoglobin 11.9g/dL (12.0-15.5) Hematocrit 37.8% (36.0-47.0) Mean Corpuscular Volume 102fL (79-100) Mean Corpuscular Hemoglobin 32pg (25-35) Mean Corpuscular Hemoglobin Concent 32g/dL (31-37) Red Cell Distribution Width 13.9% (11.5-14.5) Platelet Count 128x10^3/uL (140-400) Neutrophils (%) (Auto) 56% (31-73) Lymphocytes (%) (Auto) 32% (24-48) Monocytes (%) (Auto) 10% (0-9) Eosinophils (%) (Auto) 2% (0-3) Basophils (%) (Auto) 1% (0-3) Neutrophils # (Auto) 3.0x10^3uL (1.8-7.7) Lymphocytes # (Auto) 1.7x10^3/uL (1.0-4.8) Monocytes # (Auto) 0.5x10^3/uL (0.0-1.1) Eosinophils # (Auto) 0.1x10^3/uL (0.0-0.7) Basophils # (Auto) 0.0x10^3/uL (0.0-0.2) Sodium Level 140mmol/L (136-145) Potassium Level 5.9mmol/L (3.5-5.1) Chloride Level 101mmol/L (98-107) Carbon Dioxide Level 30mmol/L (21-32) Anion Gap 9 (6-14) Blood Urea Nitrogen 73mg/dL (7-20) Creatinine 9.0mg/dL (0.6-1.0) Estimated GFR (Cockcroft-Gault) 5.3 Glucose Level 210mg/dL (70-99) Calcium Level 8.7mg/dL (8.5-10.1) Thyroid Stimulating Hormone (TSH) 4.098uIU/mL (0.358-3.74) Free Thyroxine 0.88ng/dL (0.76-1.46) Test 01/16/17 11:46 Glucose (Fingerstick) 184mg/dL (70-99) Assessment/Plan Assessment/Plan RENAL CONSULT / CHINMAY Moseley. # [id number] MELVI MOY MD Jan 16, 2017 16:25
[2017-01-16] MEDS ORDERED: PREGABALIN 75 MG CAPSULE PO SCH (21:00)
[2017-01-16] MEDS: CETIRIZINE HCL 10 MG TABLET PO SCH (22:13)
[2017-01-16] MEDS: SIMVASTATIN 40 MG TABLET. PO SCH (22:14)
[2017-01-16] MEDS: INSULIN DETEMIR 300 UNITS/3 ML INSULN.PEN. SQ SCH (22:22)
--- NOTE | 2017-01-17 01:11 | CONS ---
DATE OF CONSULTATION: REASON FOR CONSULTATION: End-stage renal disease, need for dialysis. HISTORY OF PRESENT ILLNESS: The patient is a 66-year-old -[place] lady. Morbid obesity, hypertension, and end-stage renal disease secondary to hypertensive diabetic nephrosclerosis. She was going through dialysis on Wednesday and passed out. She could not recall that she actually had any preceding or associated symptoms. Specifically, no chest pains, no palpitations, diaphoresis. She was not short of breath. She normally holds all her antihypertensive medications on the day of dialysis and had done same. She had a light breakfast that morning, but her sugars are now reported as being specifically low. No vomiting or diarrhea. No fevers or chills. No other associated symptoms reported. She has been fine ever since she has been hospitalized. PAST MEDICAL HISTORY: Significant for: 1. Hypertension. 2. Type 2 diabetes. 3. End-stage renal disease secondary to hypertensive and diabetic nephrosclerosis. 4. Morbid obesity, possible hypoventilation issues. 5. Anemia of chronic disease including renal failure. 6. History of cerebrovascular accident with right hemiparesis. 7. History of seizure disorder, although there was no witnessed seizures at the time of this event. 8. Hypothyroidism. 9. Multiple diabetic complications including retinopathy, vasculopathy and neuropathy. 10. Gout. 11. Depression and anxiety disorder. 12. Congestive heart failure, mostly diastolic. 13. Osteopenia. 14. Chronic allergic rhinitis. PAST SURGICAL HISTORY: 1. Cholecystectomy. 2. . 3. Hysterectomy. 4. Hemodialysis access placements. REVIEW OF SYSTEMS: As above, otherwise negative on a 10-point scale. FAMILY HISTORY: Noncontributory, although diabetes and hypertension are in the family, but nobody else on dialysis. SOCIAL HISTORY: Denies tobacco, alcohol or recreational drugs. PHYSICAL EXAMINATION: GENERAL: Middle-aged lady. Appears in no distress or discomfort, alert and oriented. Speech is normal. Gait not assessed. HEENT: Pupils reactive. Tongue midline. No facial asymmetry. NECK: Supple. LUNGS: Clear, no rhonchi, rales or wheezing minimally decreased bases. CARDIOVASCULAR: Regular rate and rhythm, no rub. ABDOMEN: , soft, nontender, no rebound or masses. Bowel sounds are active. EXTREMITIES: No edema. NEUROLOGIC: Right hemiparesis, otherwise nonfocal. LABORATORY DATA: Reviewed. IMPRESSION: 1. End-stage renal disease. 2. Syncope. 3. Hypertension, diabetes with chronic kidney disease. 4. Morbid obesity with possible hypoventilation. PLAN: It appears that she probably had a vasovagal issue. However, her urology workup is ongoing. We will await further recommendations and results. No need for immediate dialysis. Monitor labs. Continue dialysis per schedule. Discussed with patient. Thank you very much for the consultation. I appreciate the referral. We will follow. MELVI MOY MD DR: BRIJESH/ayan JOB#: [id number] / [id number]
[2017-01-17 03:25] VITALS: BP 144/57
[2017-01-17 05:07] LABS: BASO % 1 % (0-3); EOS % 3 % (0-3); HEMATOCRIT 35.1 % (36.0-47.0); HEMOGLOBIN 11.1 g/dL (12.0-15.5); LYMPH % 38 % (24-48); MEAN CORPUSCULAR HEMOGLOBIN 32 pg (25-35); MEAN CORPUSCULAR HGB CONC 32 g/dL (31-37); MEAN CORPUSCULAR VOLUME 102 fL (79-100); MONO % 10 % (0-9); NEUT % 49 % (31-73); PLATELET COUNT 118 x10^3/uL (140-400); RED BLOOD COUNT 3.46 x10^6/uL (3.50-5.40); RED CELL DISTRIBUTION WIDTH 14.1 % (11.5-14.5); WHITE BLOOD COUNT 5.2 x10^3/uL (4.0-11.0)
[2017-01-17 05:16] LABS: CALCIUM 8.5 mg/dL (8.5-10.1); CREATININE 9.9 mg/dL (0.6-1.0); GFR 4.8; POTASSIUM 5.6 mmol/L (3.5-5.1)
[2017-01-17 07:00] VITALS: BP 141/65
--- NOTE | 2017-01-17 07:35 | RAD ---
Carotid ultrasound, 01/16/2017: History: Syncope Duplex evaluation of the carotid arteries in neck was performed including grayscale, color-flow and spectral Doppler analysis. There is mild intimal thickening and smooth plaquing in the common carotid arteries and at the carotid bifurcations. The Doppler data obtained from the bifurcations reveals no significant focal velocity acceleration to suggest a hemodynamically significant carotid stenosis. Antegrade flow is present in both vertebral arteries in the neck. IMPRESSION: Mild atherosclerotic plaquing at both carotid bifurcations with no duplex evidence of a significant stenosis. Note: Stenosis calculations for CT, MRA and conventional angiography are based upon determination of the distal ICA diameter in accordance with the NASCET methodology. Stenosis calculations for Doppler studies are derived from validated velocity criteria which are known to correlate with NASCET methodology of determining stenosis.
[2017-01-17] MEDS: ALBUTEROL SULFATE 2.5 MG/3 ML NEBU. NEB SCH ×2 (08:00→12:00)
[2017-01-17] MEDS: CINACALCET HCL 30 MG TABLET PO SCH (08:42)
[2017-01-17] MEDS: CLOPIDOGREL BISULFATE 75 MG TABLET PO SCH (08:42)
[2017-01-17] MEDS: METOCLOPRAMIDE 10 MG TABLET PO SCH ×2 (08:42→12:27)
[2017-01-17] MEDS: PANTOPRAZOLE 40 MG TABLET. PO SCH (08:43)
[2017-01-17] MEDS: LEVETIRACETAM 500 MG TABLET PO SCH (08:43)
[2017-01-17] MEDS: CITALOPRAM 10 MG TABLET. PO SCH (08:44)
[2017-01-17] MEDS: ALLOPURINOL 100 MG TABLET. PO SCH (08:44)
[2017-01-17] MEDS: CALCIUM ACETATE 667 MG CAPSULE PO SCH ×2 (08:44→12:27)
[2017-01-17] MEDS: HEPARIN PF for SUB-Q USE 5,000 UNIT/0.5 ML VIAL. SQ SCH (08:52)
[2017-01-17] MEDS: INSULIN ASPART 300 UNITS/3 ML INSULN.PEN SQ SCH ×2 (08:53→12:32)
[2017-01-17] MEDS ORDERED: SENNOSIDES 8.6 MG TABLET PO SCH (09:00)
[2017-01-17] MEDS ORDERED: FOLIC/VIT B COMP W-C (RENAL) TABLET. PO SCH (09:00)
--- NOTE | 2017-01-17 10:58 | PDOC ---
IM PROGRESS NOTES- Subjective Subjective No dizziness.Patient does not want to do Brain MRI due to claustrophobia although I offered her to give medications prior to the test for anxiety. Objective Vitals Vital Signs Date Time Temp Pulse Resp B/P Pulse Ox O2 Delivery O2 Flow Rate FiO2 01/17/17 08:00 Nasal Cannula 2.0 01/17/17 07:00 97.9 82 18 141/65 97 97.9 Input & Output Intake and Output 01/17/17 07:00 Intake Total 660 ml Output Total 0 ml Balance 660 ml Intake Oral 660 ml Output Urine Total 0 ml Physical Exam Physical Exam General appearance - alert,well appearing, and in no distress and oriented to person, place, and time Mental Status - alert, oriented to person, place, and time, affect appropriate to mood Head - normal Chest - clear to auscultation, no wheezes, rales or rhonchi, symmetric air entry Heart - S1 and S2 normal Abdomen - soft, nontender, nondistended, no masses or organomegaly Neurological - alert and oriented Musculoskeletal - no muscular tenderness noted Extremities - no pedal edema Skin - warm and dry Labs Laboratory Tests Test 01/15/17 11:40 01/15/17 18:00 01/15/17 22:04 01/16/17 07:16 White Blood Count 6.4x10^3/uL (4.0-11.0) Red Blood Count 4.03x10^6/uL (3.50-5.40) Hemoglobin 12.8g/dL (12.0-15.5) Hematocrit 40.2% (36.0-47.0) Mean Corpuscular Volume 100fL (79-100) Mean Corpuscular Hemoglobin 32pg (25-35) Mean Corpuscular Hemoglobin Concent 32g/dL (31-37) Red Cell Distribution Width 14.5% (11.5-14.5) Platelet Count 128x10^3/uL (140-400) Neutrophils (%) (Auto) 76% (31-73) Lymphocytes (%) (Auto) 15% (24-48) Monocytes (%) (Auto) 8% (0-9) Eosinophils (%) (Auto) 1% (0-3) Basophils (%) (Auto) 1% (0-3) Neutrophils # (Auto) 4.9x10^3uL (1.8-7.7) Lymphocytes # (Auto) 0.9x10^3/uL (1.0-4.8) Monocytes # (Auto) 0.5x10^3/uL (0.0-1.1) Eosinophils # (Auto) 0.0x10^3/uL (0.0-0.7) Basophils # (Auto) 0.0x10^3/uL (0.0-0.2) Sodium Level 143mmol/L (136-145) Potassium Level 5.2mmol/L (3.5-5.1) Chloride Level 103mmol/L (98-107) Carbon Dioxide Level 31mmol/L (21-32) Anion Gap 9 (6-14) Blood Urea Nitrogen 55mg/dL (7-20) Creatinine 7.2mg/dL (0.6-1.0) Estimated GFR (Cockcroft-Gault) 6.9 Glucose Level 157mg/dL (70-99) Lactic Acid Level 1.4mmol/L (0.4-2.0) Calcium Level 8.8mg/dL (8.5-10.1) Total Bilirubin 0.4mg/dL (0.2-1.0) Direct Bilirubin 0.1mg/dL (0.0-0.2) Aspartate Amino Transf (AST/SGOT) 22U/L (15-37) Alanine Aminotransferase (ALT/SGPT) 16U/L (14-59) Alkaline Phosphatase 80U/L (46-116) Troponin I Quantitative < 0.017ng/mL (0.000-0.055) BR-Rds-F-Type Natriuretic Peptide 284pg/mL (0-124) Total Protein 7.7g/dL (6.4-8.2) Albumin 3.2g/dL (3.4-5.0) Lipase 238U/L (73-393) Glucose (Fingerstick) 183mg/dL (70-99) 158mg/dL (70-99) 136mg/dL (70-99) Test 01/16/17 11:40 01/16/17 11:46 01/16/17 16:31 01/16/17 21:11 White Blood Count 5.3x10^3/uL (4.0-11.0) Red Blood Count 3.71x10^6/uL (3.50-5.40) Hemoglobin 11.9g/dL (12.0-15.5) Hematocrit 37.8% (36.0-47.0) Mean Corpuscular Volume 102fL (79-100) Mean Corpuscular Hemoglobin 32pg (25-35) Mean Corpuscular Hemoglobin Concent 32g/dL (31-37) Red Cell Distribution Width 13.9% (11.5-14.5) Platelet Count 128x10^3/uL (140-400) Neutrophils (%) (Auto) 56% (31-73) Lymphocytes (%) (Auto) 32% (24-48) Monocytes (%) (Auto) 10% (0-9) Eosinophils (%) (Auto) 2% (0-3) Basophils (%) (Auto) 1% (0-3) Neutrophils # (Auto) 3.0x10^3uL (1.8-7.7) Lymphocytes # (Auto) 1.7x10^3/uL (1.0-4.8) Monocytes # (Auto) 0.5x10^3/uL (0.0-1.1) Eosinophils # (Auto) 0.1x10^3/uL (0.0-0.7) Basophils # (Auto) 0.0x10^3/uL (0.0-0.2) Sodium Level 140mmol/L (136-145) Potassium Level 5.9mmol/L (3.5-5.1) Chloride Level 101mmol/L (98-107) Carbon Dioxide Level 30mmol/L (21-32) Anion Gap 9 (6-14) Blood Urea Nitrogen 73mg/dL (7-20) Creatinine 9.0mg/dL (0.6-1.0) Estimated GFR (Cockcroft-Gault) 5.3 Glucose Level 210mg/dL (70-99) Calcium Level 8.7mg/dL (8.5-10.1) Thyroid Stimulating Hormone (TSH) 4.098uIU/mL (0.358-3.74) Free Thyroxine 0.88ng/dL (0.76-1.46) Glucose (Fingerstick) 184mg/dL (70-99) 176mg/dL (70-99) 171mg/dL (70-99) Test 01/17/17 03:45 01/17/17 07:50 White Blood Count 5.2x10^3/uL (4.0-11.0) Red Blood Count 3.46x10^6/uL (3.50-5.40) Hemoglobin 11.1g/dL (12.0-15.5) Hematocrit 35.1% (36.0-47.0) Mean Corpuscular Volume 102fL (79-100) Mean Corpuscular Hemoglobin 32pg (25-35) Mean Corpuscular Hemoglobin Concent 32g/dL (31-37) Red Cell Distribution Width 14.1% (11.5-14.5) Platelet Count 118x10^3/uL (140-400) Neutrophils (%) (Auto) 49% (31-73) Lymphocytes (%) (Auto) 38% (24-48) Monocytes (%) (Auto) 10% (0-9) Eosinophils (%) (Auto) 3% (0-3) Basophils (%) (Auto) 1% (0-3) Neutrophils # (Auto) 2.5x10^3uL (1.8-7.7) Lymphocytes # (Auto) 2.0x10^3/uL (1.0-4.8) Monocytes # (Auto) 0.5x10^3/uL (0.0-1.1) Eosinophils # (Auto) 0.1x10^3/uL (0.0-0.7) Basophils # (Auto) 0.0x10^3/uL (0.0-0.2) Sodium Level 143mmol/L (136-145) Potassium Level 5.6mmol/L (3.5-5.1) Chloride Level 102mmol/L (98-107) Carbon Dioxide Level 32mmol/L (21-32) Anion Gap 9 (6-14) Blood Urea Nitrogen 80mg/dL (7-20) Creatinine 9.9mg/dL (0.6-1.0) Estimated GFR (Cockcroft-Gault) 4.8 Glucose Level 172mg/dL (70-99) Calcium Level 8.5mg/dL (8.5-10.1) Glucose (Fingerstick) 177mg/dL (70-99) Laboratory Tests Test 01/16/17 11:40 01/16/17 11:46 01/16/17 16:31 01/16/17 21:11 White Blood Count 5.3x10^3/uL (4.0-11.0) Red Blood Count 3.71x10^6/uL (3.50-5.40) Hemoglobin 11.9g/dL (12.0-15.5) Hematocrit 37.8% (36.0-47.0) Mean Corpuscular Volume 102fL (79-100) Mean Corpuscular Hemoglobin 32pg (25-35) Mean Corpuscular Hemoglobin Concent 32g/dL (31-37) Red Cell Distribution Width 13.9% (11.5-14.5) Platelet Count 128x10^3/uL (140-400) Neutrophils (%) (Auto) 56% (31-73) Lymphocytes (%) (Auto) 32% (24-48) Monocytes (%) (Auto) 10% (0-9) Eosinophils (%) (Auto) 2% (0-3) Basophils (%) (Auto) 1% (0-3) Neutrophils # (Auto) 3.0x10^3uL (1.8-7.7) Lymphocytes # (Auto) 1.7x10^3/uL (1.0-4.8) Monocytes # (Auto) 0.5x10^3/uL (0.0-1.1) Eosinophils # (Auto) 0.1x10^3/uL (0.0-0.7) Basophils # (Auto) 0.0x10^3/uL (0.0-0.2) Sodium Level 140mmol/L (136-145) Potassium Level 5.9mmol/L (3.5-5.1) Chloride Level 101mmol/L (98-107) Carbon Dioxide Level 30mmol/L (21-32) Anion Gap 9 (6-14) Blood Urea Nitrogen 73mg/dL (7-20) Creatinine 9.0mg/dL (0.6-1.0) Estimated GFR (Cockcroft-Gault) 5.3 Glucose Level 210mg/dL (70-99) Calcium Level 8.7mg/dL (8.5-10.1) Thyroid Stimulating Hormone (TSH) 4.098uIU/mL (0.358-3.74) Free Thyroxine 0.88ng/dL (0.76-1.46) Glucose (Fingerstick) 184mg/dL (70-99) 176mg/dL (70-99) 171mg/dL (70-99) Test 01/17/17 03:45 01/17/17 07:50 White Blood Count 5.2x10^3/uL (4.0-11.0) Red Blood Count 3.46x10^6/uL (3.50-5.40) Hemoglobin 11.1g/dL (12.0-15.5) Hematocrit 35.1% (36.0-47.0) Mean Corpuscular Volume 102fL (79-100) Mean Corpuscular Hemoglobin 32pg (25-35) Mean Corpuscular Hemoglobin Concent 32g/dL (31-37) Red Cell Distribution Width 14.1% (11.5-14.5) Platelet Count 118x10^3/uL (140-400) Neutrophils (%) (Auto) 49% (31-73) Lymphocytes (%) (Auto) 38% (24-48) Monocytes (%) (Auto) 10% (0-9) Eosinophils (%) (Auto) 3% (0-3) Basophils (%) (Auto) 1% (0-3) Neutrophils # (Auto) 2.5x10^3uL (1.8-7.7) Lymphocytes # (Auto) 2.0x10^3/uL (1.0-4.8) Monocytes # (Auto) 0.5x10^3/uL (0.0-1.1) Eosinophils # (Auto) 0.1x10^3/uL (0.0-0.7) Basophils # (Auto) 0.0x10^3/uL (0.0-0.2) Sodium Level 143mmol/L (136-145) Potassium Level 5.6mmol/L (3.5-5.1) Chloride Level 102mmol/L (98-107) Carbon Dioxide Level 32mmol/L (21-32) Anion Gap 9 (6-14) Blood Urea Nitrogen 80mg/dL (7-20) Creatinine 9.9mg/dL (0.6-1.0) Estimated GFR (Cockcroft-Gault) 4.8 Glucose Level 172mg/dL (70-99) Calcium Level 8.5mg/dL (8.5-10.1) Glucose (Fingerstick) 177mg/dL (70-99) Meds Current Medications Albuterol Sulfate (Ventolin Neb Soln) 2.5 mg RTQID NEB ; Start 01/16/17 at 13:00 Alprazolam (Xanax) 0.25 mg PRN DAILY PRN PO ANXIETY / AGITATION; Start at 16:15 Calcium Acetate (Phoslo) 667 mg TIDWMEALS PO Last administered on 01/17/17 08: 44; Start 01/16/17 at 12:00 Heparin Sodium (Porcine) 5,000 unit Q12HR SQ Last administered on 01/17/17 08: 52; Start 01/16/17 at 21:00 Levetiracetam (Keppra) 1,000 mg BID PO Last administered on 01/17/17 08:43; Start 01/16/17 at 21:00 Pregabalin (Lyrica) 75 mg HS PO Last administered on 01/16/17 22:13; Start at 21:00 Sennosides (Senna) 17.2 mg DAILY PO Last administered on 01/17/17 08:43; Start 01/17/17 at 09:00 Vitamin B Complex/ Vitamin C (Nephro-Britton) 1 tab DAILY PO Last administered on 01/17/17 08:42; Start 01/17/17 at 09:00 Assessment Assessment 1. syncopal episode witnessed 2. ESRD hemodialysis MWF 3. HTN 4. DM II chronic insulin with neuropathy 5. seizure disorder 6. h/o CVA with L hemiparesis 7. hyperlipidemia 8. depression 9. gout 10. secondary hyperparathyroidism 11. GERD 12. OA hips/L knee 13. osteopenia 14. allergic rhinitis 15. hypothyroid 16. morbid obesity 17. moderate chronic PCL malnutrition PLAN: syncope neurology consult check TSH Ft4 check orthostatic -lying to sitting only CHF check ECHO ESRD nephrology consult Dx MWF DM II neuropathy FSBS/SSI Levemir 30u at hs-home dose novolog 20u TID ac-home dose gabapentin changed to lyrica by Dr. Lobo at last appt. weakness/debility PT eval treat DVT/GI prophylaxis heparin q12 PPI Carotid doppler negative. Echo not done on weekends. Patient probably also has sleep apnea- snoring,stops breathing- advised testing as outpatient. Ok to discharge. see in 5 days. Discharge Management - 35 minutes. Plan Plan 1. syncopal episode witnessed 2. ESRD hemodialysis MWF 3. HTN 4. DM II chronic insulin with neuropathy 5. seizure disorder 6. h/o CVA with L hemiparesis 7. hyperlipidemia 8. depression 9. gout 10. secondary hyperparathyroidism 11. GERD 12. OA hips/L knee 13. osteopenia 14. allergic rhinitis 15. hypothyroid 16. morbid obesity 17. moderate chronic PCL malnutrition PLAN: syncope neurology consult check TSH Ft4 check orthostatic -lying to sitting only CHF check ECHO ESRD nephrology consult Dx MWF DM II neuropathy FSBS/SSI Levemir 30u at hs-home dose novolog 20u TID ac-home dose gabapentin changed to lyrica by Dr. Lobo at last appt. weakness/debility PT eval treat DVT/GI prophylaxis heparin q12 PPI For more details regarding further plans, please refer to the orders. MIRIAM RODRIGUEZ MD Jan 17, 2017 10:58
--- NOTE | 2017-01-17 11:00 | DISCH ---
DISCHARGE INSTRUCTIONS Condition on Discharge Condition on Discharge: Stable Activity After Discharge Activity Instructions for Disc: Resume previous activity, Activity as tolerated Diet after Discharge Diet after Discharge: Renal Dialysis Contacting the after DC Call your doctor for: Concerns you may have Follow-Up Follow up with: in 5 days MIRIAM RODRIGUEZ MD Jan 17, 2017 11:00
[2017-01-17 11:06] VITALS: BP 150/62
[2017-01-17 11:07] VITALS: BP 150/62
--- NOTE | 2017-01-17 16:57 | PDOC ---
Provider Note Provider Note RENAL F/U : CHINMAY Doing Ok VSS No new c/o No dizziness reported. Alert Exam stable Labs stable. CPM HD in am if in-house MELVI MOY MD Jan 17, 2017 16:57
--- NOTE | 2017-01-18 10:37 | PDOC3 ---
IM DISCHARGE SUMMARY Date of Admission Date of Admission Date of Admission: Jan 15, 2017 at 13:45 Date of Discharge Date of Discharge 01/17/17 Primary Diagnosis Primary Diagnosis 1. syncopal episode witnessed 2. ESRD hemodialysis MWF 3. HTN 4. DM II chronic insulin with neuropathy 5. seizure disorder 6. h/o CVA with L hemiparesis 7. hyperlipidemia 8. depression 9. gout 10. secondary hyperparathyroidism 11. GERD 12. OA hips/L knee 13. osteopenia 14. allergic rhinitis 15. hypothyroid 16. morbid obesity 17. moderate chronic PCL malnutrition PLAN: syncope neurology consult check TSH Ft4 check orthostatic -lying to sitting only CHF check ECHO ESRD nephrology consult Dx MWF DM II neuropathy FSBS/SSI Levemir 30u at hs-home dose novolog 20u TID ac-home dose gabapentin changed to lyrica by Dr. Lobo at last appt. weakness/debility PT eval treat DVT/GI prophylaxis heparin q12 PPI Carotid doppler negative. Echo not done on weekends. Patient probably also has sleep apnea- snoring,stops breathing- advised testing as outpatient. Ok to discharge. see in 5 days. Discharge Management - 35 minutes. Plan Plan 1. syncopal episode witnessed 2. ESRD hemodialysis MWF 3. HTN 4. DM II chronic insulin with neuropathy 5. seizure disorder 6. h/o CVA with L hemiparesis 7. hyperlipidemia 8. depression 9. gout 10. secondary hyperparathyroidism 11. GERD 12. OA hips/L knee 13. osteopenia 14. allergic rhinitis 15. hypothyroid 16. morbid obesity 17. moderate chronic PCL malnutrition Problems: Consults Consults Ricky Root MD Procedures Procedures None Labs Labs Laboratory Tests Test 01/15/17 11:40 01/15/17 18:00 01/15/17 22:04 01/16/17 07:16 White Blood Count 6.4x10^3/uL (4.0-11.0) Red Blood Count 4.03x10^6/uL (3.50-5.40) Hemoglobin 12.8g/dL (12.0-15.5) Hematocrit 40.2% (36.0-47.0) Mean Corpuscular Volume 100fL (79-100) Mean Corpuscular Hemoglobin 32pg (25-35) Mean Corpuscular Hemoglobin Concent 32g/dL (31-37) Red Cell Distribution Width 14.5% (11.5-14.5) Platelet Count 128x10^3/uL (140-400) Neutrophils (%) (Auto) 76% (31-73) Lymphocytes (%) (Auto) 15% (24-48) Monocytes (%) (Auto) 8% (0-9) Eosinophils (%) (Auto) 1% (0-3) Basophils (%) (Auto) 1% (0-3) Neutrophils # (Auto) 4.9x10^3uL (1.8-7.7) Lymphocytes # (Auto) 0.9x10^3/uL (1.0-4.8) Monocytes # (Auto) 0.5x10^3/uL (0.0-1.1) Eosinophils # (Auto) 0.0x10^3/uL (0.0-0.7) Basophils # (Auto) 0.0x10^3/uL (0.0-0.2) Sodium Level 143mmol/L (136-145) Potassium Level 5.2mmol/L (3.5-5.1) Chloride Level 103mmol/L (98-107) Carbon Dioxide Level 31mmol/L (21-32) Anion Gap 9 (6-14) Blood Urea Nitrogen 55mg/dL (7-20) Creatinine 7.2mg/dL (0.6-1.0) Estimated GFR (Cockcroft-Gault) 6.9 Glucose Level 157mg/dL (70-99) Lactic Acid Level 1.4mmol/L (0.4-2.0) Calcium Level 8.8mg/dL (8.5-10.1) Total Bilirubin 0.4mg/dL (0.2-1.0) Direct Bilirubin 0.1mg/dL (0.0-0.2) Aspartate Amino Transf (AST/SGOT) 22U/L (15-37) Alanine Aminotransferase (ALT/SGPT) 16U/L (14-59) Alkaline Phosphatase 80U/L (46-116) Troponin I Quantitative < 0.017ng/mL (0.000-0.055) KK-Tyc-M-Type Natriuretic Peptide 284pg/mL (0-124) Total Protein 7.7g/dL (6.4-8.2) Albumin 3.2g/dL (3.4-5.0) Lipase 238U/L (73-393) Glucose (Fingerstick) 183mg/dL (70-99) 158mg/dL (70-99) 136mg/dL (70-99) Test 01/16/17 11:40 01/16/17 11:46 01/16/17 16:31 01/16/17 21:11 White Blood Count 5.3x10^3/uL (4.0-11.0) Red Blood Count 3.71x10^6/uL (3.50-5.40) Hemoglobin 11.9g/dL (12.0-15.5) Hematocrit 37.8% (36.0-47.0) Mean Corpuscular Volume 102fL (79-100) Mean Corpuscular Hemoglobin 32pg (25-35) Mean Corpuscular Hemoglobin Concent 32g/dL (31-37) Red Cell Distribution Width 13.9% (11.5-14.5) Platelet Count 128x10^3/uL (140-400) Neutrophils (%) (Auto) 56% (31-73) Lymphocytes (%) (Auto) 32% (24-48) Monocytes (%) (Auto) 10% (0-9) Eosinophils (%) (Auto) 2% (0-3) Basophils (%) (Auto) 1% (0-3) Neutrophils # (Auto) 3.0x10^3uL (1.8-7.7) Lymphocytes # (Auto) 1.7x10^3/uL (1.0-4.8) Monocytes # (Auto) 0.5x10^3/uL (0.0-1.1) Eosinophils # (Auto) 0.1x10^3/uL (0.0-0.7) Basophils # (Auto) 0.0x10^3/uL (0.0-0.2) Sodium Level 140mmol/L (136-145) Potassium Level 5.9mmol/L (3.5-5.1) Chloride Level 101mmol/L (98-107) Carbon Dioxide Level 30mmol/L (21-32) Anion Gap 9 (6-14) Blood Urea Nitrogen 73mg/dL (7-20) Creatinine 9.0mg/dL (0.6-1.0) Estimated GFR (Cockcroft-Gault) 5.3 Glucose Level 210mg/dL (70-99) Calcium Level 8.7mg/dL (8.5-10.1) Thyroid Stimulating Hormone (TSH) 4.098uIU/mL (0.358-3.74) Free Thyroxine 0.88ng/dL (0.76-1.46) Glucose (Fingerstick) 184mg/dL (70-99) 176mg/dL (70-99) 171mg/dL (70-99) Test 01/17/17 03:45 01/17/17 07:50 01/17/17 11:52 White Blood Count 5.2x10^3/uL (4.0-11.0) Red Blood Count 3.46x10^6/uL (3.50-5.40) Hemoglobin 11.1g/dL (12.0-15.5) Hematocrit 35.1% (36.0-47.0) Mean Corpuscular Volume 102fL (79-100) Mean Corpuscular Hemoglobin 32pg (25-35) Mean Corpuscular Hemoglobin Concent 32g/dL (31-37) Red Cell Distribution Width 14.1% (11.5-14.5) Platelet Count 118x10^3/uL (140-400) Neutrophils (%) (Auto) 49% (31-73) Lymphocytes (%) (Auto) 38% (24-48) Monocytes (%) (Auto) 10% (0-9) Eosinophils (%) (Auto) 3% (0-3) Basophils (%) (Auto) 1% (0-3) Neutrophils # (Auto) 2.5x10^3uL (1.8-7.7) Lymphocytes # (Auto) 2.0x10^3/uL (1.0-4.8) Monocytes # (Auto) 0.5x10^3/uL (0.0-1.1) Eosinophils # (Auto) 0.1x10^3/uL (0.0-0.7) Basophils # (Auto) 0.0x10^3/uL (0.0-0.2) Sodium Level 143mmol/L (136-145) Potassium Level 5.6mmol/L (3.5-5.1) Chloride Level 102mmol/L (98-107) Carbon Dioxide Level 32mmol/L (21-32) Anion Gap 9 (6-14) Blood Urea Nitrogen 80mg/dL (7-20) Creatinine 9.9mg/dL (0.6-1.0) Estimated GFR (Cockcroft-Gault) 4.8 Glucose Level 172mg/dL (70-99) Calcium Level 8.5mg/dL (8.5-10.1) Glucose (Fingerstick) 177mg/dL (70-99) 225mg/dL (70-99) Brief hospital course Brief hospital course This year old male who presented with PLAN: syncope due to intravascular volume depletion from dialysis neurology consult check TSH Ft4 check orthostatic -lying to sitting only CHF check ECHO ESRD nephrology consult Dx MWF DM II neuropathy FSBS/SSI Levemir 30u at hs-home dose novolog 20u TID ac-home dose gabapentin changed to lyrica by Dr. Lobo at last appt. weakness/debility PT eval treat DVT/GI prophylaxis heparin q12 PPI For more details regarding the past history, family history, social history, surgical history and other details, please refer to History and Physical. Yuni did not wish to pursue MRI brain. She was discharged by Dr. Vazquez. Please see discharge orders. Medications Medications reviewed and reconciled for discharge. Allergy Allergies Coded Allergies Type Severity Reaction Last Updated Verified No Known Drug Allergies 07/19/[address] Lobo in 5 days. DISPOSITION: Home Comments Discharge Management - 35 minutes. For other details please refer to discharge instructions MIRIAM RODRIGUEZ APRN Jan 18, 2017 10:37
[2017-01-18 11:18] LABS: VITAMIN-B12 961 pg/mL (247-911)
[2017-01-18 11:46] LABS: FOLATE > 20.00 ng/ml (3.2-20.0)
== END 2017-01-17 15:20 | disposition home or self-care (01) ==
LOC: ER 09:18 → 6 SOUTH 13:45
PROVIDERS: ADMIT Internal Medicine; ATTEND Internal Medicine
DX: R55 Syncope and collapse (principal); N18.6 End stage renal disease; Z99.2 Dependence on renal dialysis; I12.0 Hypertensive chronic kidney disease with stage 5 chronic kidney disease or end stage renal disease; E11.22 Type 2 diabetes mellitus with diabetic chronic kidney disease; G40.909 Epilepsy, unspecified, not intractable, without status epilepticus; E78.5 Hyperlipidemia, unspecified; I69.351 Hemiplegia and hemiparesis following cerebral infarction affecting right dominant side; I69.354 Hemiplegia and hemiparesis following cerebral infarction affecting left non-dominant side; F32.9 Major depressive disorder, single episode, unspecified; F41.9 Anxiety disorder, unspecified; M10.9 Gout, unspecified; N25.81 Secondary hyperparathyroidism of renal origin; K21.9 Gastro-esophageal reflux disease without esophagitis; M17.12 Unilateral primary osteoarthritis, left knee; M16.0 Bilateral primary osteoarthritis of hip; M85.80 Other specified disorders of bone density and structure, unspecified site; J30.9 Allergic rhinitis, unspecified; E03.9 Hypothyroidism, unspecified; E66.01 Morbid (severe) obesity due to excess calories; E46 Unspecified protein-calorie malnutrition; E11.40 Type 2 diabetes mellitus with diabetic neuropathy, unspecified; D63.8 Anemia in other chronic diseases classified elsewhere
CPT/HCPCS: 36415; 70450; 71010; 73502; 73562; 80048; 80076; 82607; 82746; 82947; 83605; 83690; 83880; 84439; 84443; 84484; 85027; 93005; 93880; 94250; 94760; 96372; 99285; G0378; J1815; J8597; G0379

== ENCOUNTER 2017-09-29 20:06 | Inpatient (IN) | payer OTHER ==
[2017-09-29] VITALS (8 sets, daily range): BP systolic 72–105; BP diastolic 35–61
[~2017-09-29] VITALS: Ht 167.6 cm; Wt 150.6 kg
[~2017-09-29 20:06] MED LIST changes: -CINA30TA PO; +CINA30TA2 PO; -HYDR-2666 PO; +HYDR-2758 PO; +NALO25TA2 PO; +XOPENEX HFA15 GM IH; +phoslo PO
[2017-09-29] MEDS ORDERED: IPRATRPIUM/ALBUTEROL 0.5/2.5MG 3 ML NEBU. ONE (20:09)
[2017-09-29] MEDS ORDERED: DEXTROSE 50% 25 GM / 50ML DISP.SYRIN. IV ONE ×3 (20:11→23:00)
[2017-09-29 20:26] LABS: BASO # 0.1 x10^3/uL (0.0-0.2); BASO % 1 % (0-3); EOS % 1 % (0-3); HEMATOCRIT 37.9 % (36.0-47.0); LYMPH # 1.6 x10^3/uL (1.0-4.8); LYMPH % 17 % (24-48); MEAN CORPUSCULAR HEMOGLOBIN 32 pg (25-35); MEAN CORPUSCULAR HGB CONC 32 g/dL (31-37); MEAN CORPUSCULAR VOLUME 101 fL (79-100); MONO % 10 % (0-9); NEUT % 72 % (31-73); PLATELET COUNT 135 x10^3/uL (140-400); RED BLOOD COUNT 3.74 x10^6/uL (3.50-5.40); RED CELL DISTRIBUTION WIDTH 14.7 % (11.5-14.5); WHITE BLOOD COUNT 9.7 x10^3/uL (4.0-11.0)
--- NOTE | 2017-09-29 20:26 | PHYS DOC ---
Past Medical History Past Medical History: CVA, Diabetes-Type II, Renal Disease, Renal Failure, Seizure, Other Past Surgical History: Other Additional Past Surgical Histo: Dialysis shunt R) upper arm being used, shunt in left arm-not used anymore. Alcohol Use: None Drug Use: None Adult General Chief Complaint Chief Complaint: DYSPNEA/RESPIRATOY DISTRESS HPI HPI Patient is a 67 year old -[place] female presents with shortness of breath and hypoglycemia. According to EMS she missed her last 2 days of dialysis because she wasn't feeling well and when they arrived she was ready on BiPAP from fire department was informed she was satting 70% on room air, her sugar was also 52 and received half an amp of them up to 60s, past medical history of end-stage renal disease dialyzes Wednesday, hypertension, diabetes on insulin, seizure disorder, left sided CVA, dyslipidemia, depression, gout, GERD, hypothyroidism, morbid obesity. Review of Systems Review of Systems Constitutional: Denies fever or chills [] Eyes: Denies change in visual acuity, redness, or eye pain [] HENT: Denies nasal congestion or sore throat [] Respiratory: Denies cough or shortness of breath [] Cardiovascular: No additional information not addressed in HPI [] GI: Denies abdominal pain, nausea, vomiting, bloody stools or diarrhea [] : Denies dysuria or hematuria [] Musculoskeletal: Denies back pain or joint pain [] Integument: Denies rash or skin lesions [] Neurologic: Denies headache, focal weakness or sensory changes [] Endocrine: Denies polyuria or polydipsia [] All other systems were reviewed and found to be within normal limits, except as documented in this note. Current Medications Current Medications Current Medications Medications (Trade) Dose Ordered Sig/Yumiko Start Time Stop Time Status Last Admin Dose Admin Albuterol/ Ipratropium (Duoneb) 3 ml STK-MED ONCE 09/29/17 20:09 09/29/17 20:10 DC Dextrose (Dextrose 50%-Water Syringe) 25 gm 1X ONCE 09/29/17 20:15 09/29/17 20:18 DC 09/29/17 20:13 25 GM Allergies Allergies Allergies Coded Allergies Type Severity Reaction Last Updated Verified No Known Drug Allergies 07/19/15 No Physical Exam Physical Exam Constitutional: Well developed, well nourished, no acute distress, non-toxic appearance. [] HENT: Normocephalic, atraumatic, bilateral external ears normal, oropharynx moist, no oral exudates, nose normal. [] Eyes: PERRLA, EOMI, conjunctiva normal, no discharge. [] Neck: Normal range of motion, no tenderness, supple, no stridor. [] Cardiovascular:Heart rate regular rhythm, no murmur [] Lungs & Thorax: Bilateral breath sounds clear to auscultation [] Abdomen: Bowel sounds normal, soft, no tenderness, no masses, no pulsatile masses. [] Skin: Warm, dry, no erythema, no rash. [] Back: No tenderness, no CVA tenderness. [] Extremities: No tenderness, no cyanosis, no clubbing, ROM intact, no edema. [] Neurologic: Alert and oriented X 3, normal motor function, normal sensory function, no focal deficits noted. [] Psychologic: Affect normal, judgement normal, mood normal. [] Current Patient Data Vital Signs Vital Signs Date Time Temp Pulse Resp B/P (MAP) Pulse Ox O2 Delivery O2 Flow Rate FiO2 09/29/17 20:35 97 BiPAP/CPAP 09/29/17 20:30 82 20 115/57 (76) 09/29/17 20:10 99.0 99.0 Lab Values Laboratory Tests Test 09/29/17 20:10 09/29/17 20:11 09/29/17 20:19 09/29/17 20:33 Glucose (Fingerstick) 43 mg/dL (70-99) *L 122 mg/dL (70-99) H White Blood Count 9.7 x10^3/uL (4.0-11.0) Red Blood Count 3.74 x10^6/uL (3.50-5.40) Hemoglobin 12.0 g/dL (12.0-15.5) Hematocrit 37.9 % (36.0-47.0) Mean Corpuscular Volume 101 fL (79-100) H Mean Corpuscular Hemoglobin 32 pg (25-35) Mean Corpuscular Hemoglobin Concent 32 g/dL (31-37) Red Cell Distribution Width 14.7 % (11.5-14.5) H Platelet Count 135 x10^3/uL (140-400) L Neutrophils (%) (Auto) 72 % (31-73) Lymphocytes (%) (Auto) 17 % (24-48) L Monocytes (%) (Auto) 10 % (0-9) H Eosinophils (%) (Auto) 1 % (0-3) Basophils (%) (Auto) 1 % (0-3) Neutrophils # (Auto) 7.0 x10^3uL (1.8-7.7) Lymphocytes # (Auto) 1.6 x10^3/uL (1.0-4.8) Monocytes # (Auto) 1.0 x10^3/uL (0.0-1.1) Eosinophils # (Auto) 0.1 x10^3/uL (0.0-0.7) Basophils # (Auto) 0.1 x10^3/uL (0.0-0.2) Sodium Level 144 mmol/L (136-145) Potassium Level 4.3 mmol/L (3.5-5.1) Chloride Level 103 mmol/L (98-107) Carbon Dioxide Level 31 mmol/L (21-32) Anion Gap 10 (6-14) Blood Urea Nitrogen 62 mg/dL (7-20) H Creatinine 8.7 mg/dL (0.6-1.0) H Estimated GFR (Cockcroft-Gault) 5.5 Glucose Level 55 mg/dL (70-99) L Lactic Acid Level 0.4 mmol/L (0.4-2.0) Calcium Level 8.7 mg/dL (8.5-10.1) Magnesium Level 1.9 mg/dL (1.8-2.4) Total Bilirubin 0.4 mg/dL (0.2-1.0) Direct Bilirubin 0.1 mg/dL (0.0-0.2) Aspartate Amino Transferase (AST) 16 U/L (15-37) Alanine Aminotransferase (ALT) 11 U/L (14-59) L Alkaline Phosphatase 78 U/L (46-116) Ammonia < 10 mcmol/L (11-34) L Creatine Kinase 63 U/L (26-192) Creatine Kinase MB (Mass) < 0.5 ng/mL (0.0-3.6) Creatine Kinase MB Relative Index % (0-4) Troponin I Quantitative < 0.017 ng/mL (0.000-0.055) RL-Uel-I-Type Natriuretic Peptide 1262 pg/mL (0-124) H Total Protein 6.8 g/dL (6.4-8.2) Albumin 3.1 g/dL (3.4-5.0) L Thyroid Stimulating Hormone (TSH) 1.835 uIU/mL (0.358-3.74) O2 Saturation 96 % (92-99) Arterial Blood pH 7.19 (7.35-7.45) *L Arterial Blood pCO2 at Patient Temp 88 mmHg (35-46) *H Arterial Blood pO2 at Patient Temp 100 mmHg (65-108) Arterial Blood HCO3 33 mmol/L (21-28) H Arterial Blood Base Excess 2 mmol/L (-3-3) FiO2 50.0 Laboratory Tests 09/29/17 20:11 Laboratory Tests 09/29/17 20:11 EKG EKG EKG shows irregular rhythm with a rate of [address] elevations, T- wave inversions noted in leads 1, 2, aVF L, normal axis, QTC 434 ms, QRS 98 ms, these T-wave inversions are new from there were 11/03/2017, as interpreted by me. Radiology/Procedures Radiology/Procedures View chest x-ray shows a right lower lobe consolidation and a left-sided pleural effusion, no bony abnormalities or pneumothorax appreciated, as interpreted by me. Impressions: Respiratory failure Healthcare acquired pneumonia Hypoglycemia End-stage renal disease on hemodialysis Course & Med Decision Making Course & Med Decision Making Pertinent Labs and Imaging studies reviewed. (See chart for details) Presents with respiratory failure with pH of 7.18, PCO2 of 88 by mouth 2 of 100 , he was on BiPAP settings 16/6 with an FiO2 of 50% a rate of 16. After this ABG her rate was increased to 18 and her IPAP was increased to 20. She was started on Vanco Levaquin and Zosyn for healthcare acquired pneumonia. She was also hypoglycemic with sugars in the 50s and then repeat showed 40 she received an amp and is now in the 120s. Spoke with Dr. Root with infectious disease and Dr. Root with nephrology. I do not believe she needs dialysis at this time. Pulmonary has also been consult. The patient's in stable condition being admitted to . Total care times critical care time 75 minutes of critical care time was used on this patient excluding procedures. Dragon Disclaimer Dragon Disclaimer This electronic medical record was generated, in whole or in part, using a voice recognition dictation system. Departure Departure Impression: Primary Impression: Respiratory failure Disposition: ADMITTED INPATIENT Admitting Physician: Carmita Lobo Condition: GUARDED Referrals: CARMITA LOBO MD (PCP) SHIVAM MONCADA MD Sep 29, 2017 20:26
[2017-09-29 20:45] LABS: CALCIUM 8.7 mg/dL (8.5-10.1); CREATININE 8.7 mg/dL (0.6-1.0); GFR 5.5; POTASSIUM 4.3 mmol/L (3.5-5.1)
[2017-09-29 20:52] LABS: ALBUMIN 3.1 g/dL (3.4-5.0); DIRECT BILIRUBIN 0.1 mg/dL (0.0-0.2); MAGNESIUM 1.9 mg/dL (1.8-2.4); TOTAL BILIRUBIN 0.4 mg/dL (0.2-1.0); TOTAL PROTEIN 6.8 g/dL (6.4-8.2)
[2017-09-29 20:57] LABS: HCO3 ABG 33 mmol/L (21-28); PO2 ABG 100 mmHg (65-108); SAT O2 ABG 96 % (92-99)
[2017-09-29 20:59] LABS: CKMB MASS < 0.5 ng/mL (0.0-3.6); CREATINE KINASE 63 U/L (26-192)
[2017-09-29] MEDS ORDERED: PIP/TAZO PER PHARMACY MC PRN (21:00)
[2017-09-29] MEDS ORDERED: levOFLOXacin PER PHARMACY. MC PRN (21:00)
[2017-09-29 21:07] LABS: PH ABG 7.19 (7.35-7.45)
[2017-09-29 21:08] LABS: PCO2 ABG 88 mmHg (35-46)
[2017-09-29] MEDS ORDERED: ONDANSETRON PF 4 MG/2 ML VIAL. IV PRN (21:15)
[2017-09-29] MEDS ORDERED: PIPERACILLIN/TAZO IV Push 2.25 GM VIAL. IVP ONE (21:30)
[2017-09-29] MEDS ORDERED: IV DEXTROSE 5% 1,000 ML IV SCH (22:30)
[2017-09-29] MEDS ORDERED: VANCOMYCIN 2 GM in IV DEXTROSE 5% 500 ML IV ONE (23:00)
[2017-09-29] MEDS ORDERED: IV NORMAL SALINE 500ML BAG 500 ML IV ONE (23:00)
[2017-09-30] VITALS (40 sets, daily range): BP systolic 61–181; BP diastolic 35–76
[2017-09-30] MEDS: VANCOMYCIN PER PHARMACY MC PRN (01:10)
[2017-09-30 02:02] LABS: HCO3 ABG 29 mmol/L (21-28); PO2 ABG 89 mmHg (65-108); SAT O2 ABG 94 % (92-99)
[2017-09-30 02:19] LABS: FIO2 ABG 30; PCO2 ABG 79 mmHg (35-46); PH ABG 7.19 (7.35-7.45)
[2017-09-30] MEDS ORDERED: PIPERACILLIN/TAZO IV Push 2.25 GM VIAL. IVP SCH (06:00)
--- NOTE | 2017-09-30 06:21 | EKG ---
[facility] [address] [place] [address] Test Date: 2017-09-29 Test Time: 20:12:51 Pat Name: MARKUS HE Department: Room: 109 1 Gender: F Scourer: : 1950 Requested By: SHIVAM MONCADA Order Number: [id number] Reading MD: Hadley Sandoval MD Measurements Intervals Palms Rate: 82 P: HI: QRS: 35 QRSD: 98 T: 166 QT: 386 QTc: 454 Interpretive Statements SUSPECT SR NON-SPECIFIC INTRAVENTRICULAR CONDUCTION DELAY Electronically Signed On 10-04-2017 10:37:26 [employer] by Hadley Sandoval MD
[2017-09-30 07:05] LABS: CALCIUM 8.9 mg/dL (8.5-10.1); CREATININE 8.8 mg/dL (0.6-1.0); GFR 5.5; POTASSIUM 4.5 mmol/L (3.5-5.1)
[2017-09-30 07:10] LABS: BASO % 0 % (0-3); EOS % 1 % (0-3); HEMATOCRIT 37.3 % (36.0-47.0); LYMPH # 1.4 x10^3/uL (1.0-4.8); LYMPH % 14 % (24-48); MEAN CORPUSCULAR HEMOGLOBIN 32 pg (25-35); MEAN CORPUSCULAR HGB CONC 32 g/dL (31-37); MEAN CORPUSCULAR VOLUME 100 fL (79-100); MONO % 9 % (0-9); NEUT % 75 % (31-73); PLATELET COUNT 130 x10^3/uL (140-400); RED BLOOD COUNT 3.73 x10^6/uL (3.50-5.40); RED CELL DISTRIBUTION WIDTH 14.5 % (11.5-14.5); WHITE BLOOD COUNT 9.8 x10^3/uL (4.0-11.0)
--- NOTE | 2017-09-30 07:27 | RAD ---
Portable AP upright chest x-ray performed at 2040 Indications: Hypoxia. Patient is unresponsive. Comparison: January 15, 2017. Findings: Decreased inspiration is seen with chronic elevation of the left hemidiaphragm. There is chronic pleural thickening of the left lateral costophrenic angle and chronic scarring of the left lung base. There is increased radiodensity of the right infrahilar region. An EKG lead is seen in this area. No new pleural effusion is seen. No pneumothorax is evident. The heart size and mediastinum are probably unchanged given rotation towards the left side. IMPRESSION: Question of a right infrahilar lung infiltrate. However, EKG lead overlies this area. Recommend follow-up well-positioned PA view chest x-ray with repositioning of the lead.
[2017-09-30 08:26] LABS: HCO3 ABG 24 mmol/L (21-28); PCO2 ABG 44 mmHg (35-46); PH ABG 7.36 (7.35-7.45); PO2 ABG 88 mmHg (65-108); SAT O2 ABG 96 % (92-99)
[2017-09-30 08:32] LABS: FIO2 ABG 30
--- NOTE | 2017-09-30 08:53 | PDOC2 ---
CONSULT Date of Consult Date of Consult DATE: 09/30/17 TIME: 08:49 Reason for Consult Reason for Consult: ESRD Referring Physician Referring Physician: Dr Lobo and MONA Identification/Chief Complaint Chief Complaint Resp failure with Hypercapneia Problems: Source Source: Chart review, Patient History of Present Illness Reason for Visit: as dictated Past Medical History Cardiovascular: CHF, HTN, Hyperlipidemia CENTRAL NERVOUS SYSTEM: CVA, Seizure GI: Constipation, Other Heme/Onc: Anemia NOS Psych: Depression Musculoskeletal: Osteoarthritis, Other Rheumatologic: Gout Renal/: Chronic renal failure, Other Endocrine: Diabetes, Hypothyroidism, Hyperparathyroidism, Osteopenia Past Surgical History Past Surgical History: Cholecystectomy, , Hysterectomy Family History Family History: Coronary Artery Disease, Hypertension, Kidney Disease Social History No ALCOHOL: none Drugs: None Current Problem List Problem List Problems Medical Problems: (1) Respiratory failure Status: Acute Current Medications Current Medications Current Medications Albuterol/ Ipratropium (Duoneb) 3 ml STK-MED ONCE .ROUTE ; Start 09/29/17 at 20: 09; Stop 09/29/17 at 20:10; Status DC Dextrose (Dextrose 50%-Water Syringe) 25 gm STK-MED ONCE IV ; Start 09/29/17 at 20:11; Stop 09/29/17 at 20:12; Status DC Dextrose (Dextrose 50%-Water Syringe) 25 gm 1X ONCE IV Last administered on 20:13; Start 09/29/17 at 20:15; Stop 09/29/17 at 20:18; Status DC Vancomycin HCl (Vanco Per Pharmacy) 1 each PRN DAILY PRN MC SEE COMMENTS Last administered on 09/30/17 01:10; Start 09/29/17 at 21:00 Piperacillin Sod/ Tazobactam Sod (Zosyn Per Pharmacy) 1 each PRN DAILY PRN MC SEE COMMENTS; Start 09/29/17 at 21:00; Stop 09/30/17 at 08:37; Status DC Levofloxacin/ Dextrose (Levaquin Per Pharmacy) 1 each PRN DAILY PRN MC SEE COMMENTS; Start 09/29/17 at 21:00; Stop 09/29/17 at 22:32; Status DC Piperacillin Sod/ Tazobactam Sod (Zosyn) 2.25 gm 1X ONCE IVP Last administered on 09/29/17 21:13; Start 09/29/17 at 21:30; Stop 09/29/17 at 21:31 ; Status DC Levofloxacin/ Dextrose 150 ml @ 150 mls/hr 1X ONCE IV Last administered on 21:14; Start 09/29/17 at 22:00; Stop 09/29/17 at 22:59; Status DC Vancomycin HCl 2 gm/Dextrose 500 ml @ 250 mls/hr 1X ONCE IV Last administered on 09/29/17 22:54; Start 09/29/17 at 23:00; Stop 09/30/17 at 00:59 ; Status DC Ondansetron HCl (Zofran) 4 mg PRN Q8HRS PRN IV NAUSEA/VOMITING; Start 09/29/17 at 21:15; Stop 09/30/17 at 21:14 Dextrose 1,000 ml @ 75 mls/hr [id number] IV Last administered on 09/29/17 22:57 ; Start 09/29/17 at 22:30 Sodium Chloride 500 ml @ 500 mls/hr 1X ONCE IV Last administered on 22:48; Start 09/29/17 at 23:00; Stop 09/29/17 at 23:59; Status DC Dextrose (Dextrose 50%-Water Syringe) 25 gm 1X ONCE IV ; Start 09/29/17 at 23: 00; Stop 09/29/17 at 23:01; Status Cancel Piperacillin Sod/ Tazobactam Sod (Zosyn) 2.25 gm Q8HRS IVP Last administered on 09/30/17 05:36; Start 09/30/17 at 06:00 Lactobacillus Rhamnosus (Culturelle) 1 cap BID PO ; Start 09/30/17 at 09:00 Vancomycin HCl 1 each 1X ONCE MC ; Start 10/01/17 at 05:00; Stop 10/01/17 at 05:01 Dopamine HCl/ Dextrose 250 ml @ 25.004 mls/ hr CONT PRN IV SEE I/O RECORD Last administered on 09/30/17 01:11; Start 09/30/17 at 01:15 Active Scripts Active Levemir Flextouch (Insulin Detemir) 300 Units/3 Ml Insuln.pen 30 Units SQ QHS Novolog Flexpen (Insulin Aspart) 300 Units/3 Ml Insuln.pen 15 Units SQ TIDAC Reported [phoslo] 2,001 Mg PO TID Movantik (Naloxegol Oxalate) 25 Mg Tablet 25 Mg PO DAILY Xopenex Hfa (Levalbuterol Tartrate) 15 Gm Hfa.aer.ad 2 Puff IH QID Keppra (Levetiracetam) 500 Mg Tablet 1 Tab PO BID Vol-Care Rx Tablet (Vit B Cmplx 3/Fa/Vit C/Biotin) 1 Each Tablet 1 Each PO DAILY Clopidogrel (Clopidogrel Bisulfate) 75 Mg Tablet 1 Tab PO DAILY Alprazolam 0.25 Mg Tablet 1 Tab PO PRN BID PRN Celexa (Citalopram Hydrobromide) 10 Mg Tablet 1 Tab PO DAILY Allopurinol 100 Mg Tablet 1 Tab PO DAILY Sensipar (Cinacalcet Hcl) 30 Mg Tablet 1 Tab PO DAILY Simvastatin 40 Mg Tablet 1 Tab PO QHS Gabapentin 300 Mg Capsule 1 Cap PO HS Senna (Sennosides) 8.6 Mg Capsule 8.6 Mg PO BID Cyclobenzaprine Hcl 10 Mg Tablet 1 Tab PO BID Reglan (Metoclopramide Hcl) 10 Mg Tablet 5 Mg PO QIDACHS Clonidine Hcl 0.1 Mg Tablet 1 Tab PO TID Hydrocodone-Apap 5-325 (Hydrocodone Bit/Acetaminophen) 1 Each Tablet 1 Tab PO PRN Q6HRS PRN Allergies Allergies: Coded Allergies: No Known Drug Allergies (Unverified , 07/19/15) ROS Review of System Unable to obtain from pt while on BiPAP Physical Exam Physical Exam General Appearance: somewhat Awake, not fully Alert Oriented x ? In no Distress; morbidly obese Eyes: Sclera Anicteric Conjunctiva Normal EN: No EN Drainage Mucous Memb. dry Neck: no JVD no JVP Supple no Thyromegaly; short thick neck CVS: S1 S2 ? Murmur No Gallop No Rub no Edema - distal HS Resp: no Rales no Rhonchi no Acc. Muscle use; distal BS due to obesity GI: BAS +ve NO Bruit Non Tender Non Distended; obese abd : no CVA tenderness; no Suprapubic Tenderness SKIN: no visible Rashes Breast Exam deferred Mu.Sk: limited ROM on Rt + Muscle Atrophy clementine on left (due to CVA) Heme: Unable to palpate Obvious LAD no Splenomegaly NEURO: Follows some commands, Ch Left CVA and Hemiplegia, no asterexis Psych: Unable to assess dueto BIapap Vital Signs Vital Signs Date Time Temp Pulse Resp B/P (MAP) Pulse Ox O2 Delivery O2 Flow Rate FiO2 09/30/17 07:52 95 BiPAP/CPAP 09/30/17 06:00 59 23 147/55 (85) 09/30/17 04:00 98.5 98.5 09/29/17 21:45 4.0 Assessment & Plan ESRD: Dialysis as below F 180 NR 4.0 Hrs 3 K 2.5 Ca 140 Na 35 HC03 Qb 350 + Qd 500+ Heparin 0 Units Uf 1-2 Kgs or to dry weight as tolerated May give 25-50 gms of 25% Albumin if needed to maintain Hemodynamic stability Treatment plan reviewed and discussed with checker Acute respiratory failure with hypercapniea - better on Biapap - defer to Pulm - ? Pn as noted on CXR Anemia: no Epogen for currentl levels of Hgb. Transfuse with next HD as needed. HypoTN: May need pressors on HD Bone & Mineral: follow phos and alter binder regimen prn HypoAlb - suspect POOR PO intake/ ? malnutrition Labs Labs Laboratory Tests Test 09/29/17 20:10 09/29/17 20:11 09/29/17 20:19 09/29/17 20:33 Glucose (Fingerstick) 43 mg/dL (70-99) 122 mg/dL (70-99) White Blood Count 9.7 x10^3/uL (4.0-11.0) Red Blood Count 3.74 x10^6/uL (3.50-5.40) Hemoglobin 12.0 g/dL (12.0-15.5) Hematocrit 37.9 % (36.0-47.0) Mean Corpuscular Volume 101 fL (79-100) Mean Corpuscular Hemoglobin 32 pg (25-35) Mean Corpuscular Hemoglobin Concent 32 g/dL (31-37) Red Cell Distribution Width 14.7 % (11.5-14.5) Platelet Count 135 x10^3/uL (140-400) Neutrophils (%) (Auto) 72 % (31-73) Lymphocytes (%) (Auto) 17 % (24-48) Monocytes (%) (Auto) 10 % (0-9) Eosinophils (%) (Auto) 1 % (0-3) Basophils (%) (Auto) 1 % (0-3) Neutrophils # (Auto) 7.0 x10^3uL (1.8-7.7) Lymphocytes # (Auto) 1.6 x10^3/uL (1.0-4.8) Monocytes # (Auto) 1.0 x10^3/uL (0.0-1.1) Eosinophils # (Auto) 0.1 x10^3/uL (0.0-0.7) Basophils # (Auto) 0.1 x10^3/uL (0.0-0.2) Sodium Level 144 mmol/L (136-145) Potassium Level 4.3 mmol/L (3.5-5.1) Chloride Level 103 mmol/L (98-107) Carbon Dioxide Level 31 mmol/L (21-32) Anion Gap 10 (6-14) Blood Urea Nitrogen 62 mg/dL (7-20) Creatinine 8.7 mg/dL (0.6-1.0) Estimated GFR (Cockcroft-Gault) 5.5 Glucose Level 55 mg/dL (70-99) Lactic Acid Level 0.4 mmol/L (0.4-2.0) Calcium Level 8.7 mg/dL (8.5-10.1) Magnesium Level 1.9 mg/dL (1.8-2.4) Total Bilirubin 0.4 mg/dL (0.2-1.0) Direct Bilirubin 0.1 mg/dL (0.0-0.2) Aspartate Amino Transf (AST/SGOT) 16 U/L (15-37) Alanine Aminotransferase (ALT/SGPT) 11 U/L (14-59) Alkaline Phosphatase 78 U/L (46-116) Ammonia < 10 mcmol/L (11-34) Creatine Kinase 63 U/L (26-192) Creatine Kinase MB (Mass) < 0.5 ng/mL (0.0-3.6) Creatine Kinase MB Relative Index % (0-4) Troponin I Quantitative < 0.017 ng/mL (0.000-0.055) VT-Sru-G-Type Natriuretic Peptide 1262 pg/mL (0-124) Total Protein 6.8 g/dL (6.4-8.2) Albumin 3.1 g/dL (3.4-5.0) Thyroid Stimulating Hormone (TSH) 1.835 uIU/mL (0.358-3.74) O2 Saturation 96 % (92-99) Arterial Blood pH 7.19 (7.35-7.45) Arterial Blood pCO2 at Patient Temp 88 mmHg (35-46) Arterial Blood pO2 at Patient Temp 100 mmHg (65-108) Arterial Blood HCO3 33 mmol/L (21-28) Arterial Blood Base Excess 2 mmol/L (-3-3) FiO2 50.0 Test 09/29/17 22:00 09/29/17 22:39 09/30/17 02:00 09/30/17 03:44 Glucose (Fingerstick) 72 mg/dL (70-99) 77 mg/dL (70-99) 144 mg/dL (70-99) O2 Saturation 94 % (92-99) Arterial Blood pH 7.19 (7.35-7.45) Arterial Blood pCO2 at Patient Temp 79 mmHg (35-46) Arterial Blood pO2 at Patient Temp 89 mmHg (65-108) Arterial Blood HCO3 29 mmol/L (21-28) Arterial Blood Base Excess -1 mmol/L (-3-3) FiO2 30 Test 09/30/17 06:15 09/30/17 08:15 White Blood Count 9.8 x10^3/uL (4.0-11.0) Red Blood Count 3.73 x10^6/uL (3.50-5.40) Hemoglobin 12.0 g/dL (12.0-15.5) Hematocrit 37.3 % (36.0-47.0) Mean Corpuscular Volume 100 fL (79-100) Mean Corpuscular Hemoglobin 32 pg (25-35) Mean Corpuscular Hemoglobin Concent 32 g/dL (31-37) Red Cell Distribution Width 14.5 % (11.5-14.5) Platelet Count 130 x10^3/uL (140-400) Neutrophils (%) (Auto) 75 % (31-73) Lymphocytes (%) (Auto) 14 % (24-48) Monocytes (%) (Auto) 9 % (0-9) Eosinophils (%) (Auto) 1 % (0-3) Basophils (%) (Auto) 0 % (0-3) Neutrophils # (Auto) 7.3 x10^3uL (1.8-7.7) Lymphocytes # (Auto) 1.4 x10^3/uL (1.0-4.8) Monocytes # (Auto) 0.9 x10^3/uL (0.0-1.1) Eosinophils # (Auto) 0.1 x10^3/uL (0.0-0.7) Basophils # (Auto) 0.0 x10^3/uL (0.0-0.2) Sodium Level 138 mmol/L (136-145) Potassium Level 4.5 mmol/L (3.5-5.1) Chloride Level 98 mmol/L (98-107) Carbon Dioxide Level 24 mmol/L (21-32) Anion Gap 16 (6-14) Blood Urea Nitrogen 65 mg/dL (7-20) Creatinine 8.8 mg/dL (0.6-1.0) Estimated GFR (Cockcroft-Gault) 5.5 Glucose Level 221 mg/dL (70-99) Calcium Level 8.9 mg/dL (8.5-10.1) Magnesium Level 1.8 mg/dL (1.8-2.4) Troponin I Quantitative < 0.017 ng/mL (0.000-0.055) O2 Saturation 96 % (92-99) Arterial Blood pH 7.36 (7.35-7.45) Arterial Blood pCO2 at Patient Temp 44 mmHg (35-46) Arterial Blood pO2 at Patient Temp 88 mmHg (65-108) Arterial Blood HCO3 24 mmol/L (21-28) Arterial Blood Base Excess -2 mmol/L (-3-3) FiO2 30 Laboratory Tests Test 09/29/17 20:10 09/29/17 20:11 09/29/17 20:19 09/29/17 20:33 Glucose (Fingerstick) 43 mg/dL (70-99) 122 mg/dL (70-99) White Blood Count 9.7 x10^3/uL (4.0-11.0) Red Blood Count 3.74 x10^6/uL (3.50-5.40) Hemoglobin 12.0 g/dL (12.0-15.5) Hematocrit 37.9 % (36.0-47.0) Mean Corpuscular Volume 101 fL (79-100) Mean Corpuscular Hemoglobin 32 pg (25-35) Mean Corpuscular Hemoglobin Concent 32 g/dL (31-37) Red Cell Distribution Width 14.7 % (11.5-14.5) Platelet Count 135 x10^3/uL (140-400) Neutrophils (%) (Auto) 72 % (31-73) Lymphocytes (%) (Auto) 17 % (24-48) Monocytes (%) (Auto) 10 % (0-9) Eosinophils (%) (Auto) 1 % (0-3) Basophils (%) (Auto) 1 % (0-3) Neutrophils # (Auto) 7.0 x10^3uL (1.8-7.7) Lymphocytes # (Auto) 1.6 x10^3/uL (1.0-4.8) Monocytes # (Auto) 1.0 x10^3/uL (0.0-1.1) Eosinophils # (Auto) 0.1 x10^3/uL (0.0-0.7) Basophils # (Auto) 0.1 x10^3/uL (0.0-0.2) Sodium Level 144 mmol/L (136-145) Potassium Level 4.3 mmol/L (3.5-5.1) Chloride Level 103 mmol/L (98-107) Carbon Dioxide Level 31 mmol/L (21-32) Anion Gap 10 (6-14) Blood Urea Nitrogen 62 mg/dL (7-20) Creatinine 8.7 mg/dL (0.6-1.0) Estimated GFR (Cockcroft-Gault) 5.5 Glucose Level 55 mg/dL (70-99) Lactic Acid Level 0.4 mmol/L (0.4-2.0) Calcium Level 8.7 mg/dL (8.5-10.1) Magnesium Level 1.9 mg/dL (1.8-2.4) Total Bilirubin 0.4 mg/dL (0.2-1.0) Direct Bilirubin 0.1 mg/dL (0.0-0.2) Aspartate Amino Transf (AST/SGOT) 16 U/L (15-37) Alanine Aminotransferase (ALT/SGPT) 11 U/L (14-59) Alkaline Phosphatase 78 U/L (46-116) Ammonia < 10 mcmol/L (11-34) Creatine Kinase 63 U/L (26-192) Creatine Kinase MB (Mass) < 0.5 ng/mL (0.0-3.6) Creatine Kinase MB Relative Index % (0-4) Troponin I Quantitative < 0.017 ng/mL (0.000-0.055) RS-[id number]-Type Natriuretic Peptide 1262 pg/mL (0-124) Total Protein 6.8 g/dL (6.4-8.2) Albumin 3.1 g/dL (3.4-5.0) Thyroid Stimulating Hormone (TSH) 1.835 uIU/mL (0.358-3.74) O2 Saturation 96 % (92-99) Arterial Blood pH 7.19 (7.35-7.45) Arterial Blood pCO2 at Patient Temp 88 mmHg (35-46) Arterial Blood pO2 at Patient Temp 100 mmHg (65-108) Arterial Blood HCO3 33 mmol/L (21-28) Arterial Blood Base Excess 2 mmol/L (-3-3) FiO2 50.0 Test 09/29/17 22:00 09/29/17 22:39 09/30/17 02:00 09/30/17 03:44 Glucose (Fingerstick) 72 mg/dL (70-99) 77 mg/dL (70-99) 144 mg/dL (70-99) O2 Saturation 94 % (92-99) Arterial Blood pH 7.19 (7.35-7.45) Arterial Blood pCO2 at Patient Temp 79 mmHg (35-46) Arterial Blood pO2 at Patient Temp 89 mmHg (65-108) Arterial Blood HCO3 29 mmol/L (21-28) Arterial Blood Base Excess -1 mmol/L (-3-3) FiO2 30 Test 09/30/17 06:15 09/30/17 08:15 White Blood Count 9.8 x10^3/uL (4.0-11.0) Red Blood Count 3.73 x10^6/uL (3.50-5.40) Hemoglobin 12.0 g/dL (12.0-15.5) Hematocrit 37.3 % (36.0-47.0) Mean Corpuscular Volume 100 fL (79-100) Mean Corpuscular Hemoglobin 32 pg (25-35) Mean Corpuscular Hemoglobin Concent 32 g/dL (31-37) Red Cell Distribution Width 14.5 % (11.5-14.5) Platelet Count 130 x10^3/uL (140-400) Neutrophils (%) (Auto) 75 % (31-73) Lymphocytes (%) (Auto) 14 % (24-48) Monocytes (%) (Auto) 9 % (0-9) Eosinophils (%) (Auto) 1 % (0-3) Basophils (%) (Auto) 0 % (0-3) Neutrophils # (Auto) 7.3 x10^3uL (1.8-7.7) Lymphocytes # (Auto) 1.4 x10^3/uL (1.0-4.8) Monocytes # (Auto) 0.9 x10^3/uL (0.0-1.1) Eosinophils # (Auto) 0.1 x10^3/uL (0.0-0.7) Basophils # (Auto) 0.0 x10^3/uL (0.0-0.2) Sodium Level 138 mmol/L (136-145) Potassium Level 4.5 mmol/L (3.5-5.1) Chloride Level 98 mmol/L (98-107) Carbon Dioxide Level 24 mmol/L (21-32) Anion Gap 16 (6-14) Blood Urea Nitrogen 65 mg/dL (7-20) Creatinine 8.8 mg/dL (0.6-1.0) Estimated GFR (Cockcroft-Gault) 5.5 Glucose Level 221 mg/dL (70-99) Calcium Level 8.9 mg/dL (8.5-10.1) Magnesium Level 1.8 mg/dL (1.8-2.4) Troponin I Quantitative < 0.017 ng/mL (0.000-0.055) O2 Saturation 96 % (92-99) Arterial Blood pH 7.36 (7.35-7.45) Arterial Blood pCO2 at Patient Temp 44 mmHg (35-46) Arterial Blood pO2 at Patient Temp 88 mmHg (65-108) Arterial Blood HCO3 24 mmol/L (21-28) Arterial Blood Base Excess -2 mmol/L (-3-3) FiO2 30 ALCIRA HARRIS MD Sep 30, 2017 08:53
[2017-09-30] MEDS: LACTOBACILLUS RHAMNOSUS GG 1 CAPSULE. PO SCH ×2 (09:00→20:37)
--- NOTE | 2017-09-30 09:38 | PDOC ---
Provider Note Provider Note Pt seen and dictated [id number]; Pt with ESRD on HD,missed dialysis session admitted with IMP; Acute respiratory failure with hypoxia and hypercapnea Hypoglycemia Possible Pulmonary infiltrate HTN Morbid obesity Anemia GERD DM REC: Continue current empiric IV Vanc,renal dosing will dc zosyn if has T > 101 obtain BC x2 Will taper off soon depending on clinical response Pulm and Renal service following ARACELY HARRIS MD Sep 30, 2017 09:38
[2017-09-30] MEDS ORDERED: IV NORMAL SALINE 1000ML BAG 1,000 ML IV PRN ×2 (10:13)
[2017-09-30] MEDS ORDERED: DIALYSIS PATIENT. MC PRN ×2 (10:15)
[2017-09-30] MEDS ORDERED: DEXTROSE 50% 25 GM / 50ML DISP.SYRIN. IV PRN (10:15)
--- NOTE | 2017-09-30 10:18 | PDOC ---
Provider Note Provider Note Pt seen in ICU.H&P dictated. #[id number] critical care 43 mts spent coordinating care CARMITA WALL MD Sep 30, 2017 10:18
[2017-09-30 11:00] LABS: OBC FLU VALID
--- NOTE | 2017-09-30 11:27 | PDOC ---
PULMONARY PROGRESS NOTES Vitals Vital Signs Date Time Temp Pulse Resp B/P (MAP) Pulse Ox O2 Delivery O2 Flow Rate FiO2 09/30/17 11:00 77 24 107/62 (77) 98 Nasal Cannula 6.0 09/30/17 08:00 98.7 98.7 Labs Laboratory Tests Test 09/29/17 20:10 09/29/17 20:11 09/29/17 20:19 09/29/17 20:33 Glucose (Fingerstick) 43 mg/dL (70-99) 122 mg/dL (70-99) White Blood Count 9.7 x10^3/uL (4.0-11.0) Red Blood Count 3.74 x10^6/uL (3.50-5.40) Hemoglobin 12.0 g/dL (12.0-15.5) Hematocrit 37.9 % (36.0-47.0) Mean Corpuscular Volume 101 fL (79-100) Mean Corpuscular Hemoglobin 32 pg (25-35) Mean Corpuscular Hemoglobin Concent 32 g/dL (31-37) Red Cell Distribution Width 14.7 % (11.5-14.5) Platelet Count 135 x10^3/uL (140-400) Neutrophils (%) (Auto) 72 % (31-73) Lymphocytes (%) (Auto) 17 % (24-48) Monocytes (%) (Auto) 10 % (0-9) Eosinophils (%) (Auto) 1 % (0-3) Basophils (%) (Auto) 1 % (0-3) Neutrophils # (Auto) 7.0 x10^3uL (1.8-7.7) Lymphocytes # (Auto) 1.6 x10^3/uL (1.0-4.8) Monocytes # (Auto) 1.0 x10^3/uL (0.0-1.1) Eosinophils # (Auto) 0.1 x10^3/uL (0.0-0.7) Basophils # (Auto) 0.1 x10^3/uL (0.0-0.2) Sodium Level 144 mmol/L (136-145) Potassium Level 4.3 mmol/L (3.5-5.1) Chloride Level 103 mmol/L (98-107) Carbon Dioxide Level 31 mmol/L (21-32) Anion Gap 10 (6-14) Blood Urea Nitrogen 62 mg/dL (7-20) Creatinine 8.7 mg/dL (0.6-1.0) Estimated GFR (Cockcroft-Gault) 5.5 Glucose Level 55 mg/dL (70-99) Lactic Acid Level 0.4 mmol/L (0.4-2.0) Calcium Level 8.7 mg/dL (8.5-10.1) Magnesium Level 1.9 mg/dL (1.8-2.4) Total Bilirubin 0.4 mg/dL (0.2-1.0) Direct Bilirubin 0.1 mg/dL (0.0-0.2) Aspartate Amino Transf (AST/SGOT) 16 U/L (15-37) Alanine Aminotransferase (ALT/SGPT) 11 U/L (14-59) Alkaline Phosphatase 78 U/L (46-116) Ammonia < 10 mcmol/L (11-34) Creatine Kinase 63 U/L (26-192) Creatine Kinase MB (Mass) < 0.5 ng/mL (0.0-3.6) Creatine Kinase MB Relative Index % (0-4) Troponin I Quantitative < 0.017 ng/mL (0.000-0.055) IK-Ago-C-Type Natriuretic Peptide 1262 pg/mL (0-124) Total Protein 6.8 g/dL (6.4-8.2) Albumin 3.1 g/dL (3.4-5.0) Thyroid Stimulating Hormone (TSH) 1.835 uIU/mL (0.358-3.74) O2 Saturation 96 % (92-99) Arterial Blood pH 7.19 (7.35-7.45) Arterial Blood pCO2 at Patient Temp 88 mmHg (35-46) Arterial Blood pO2 at Patient Temp 100 mmHg (65-108) Arterial Blood HCO3 33 mmol/L (21-28) Arterial Blood Base Excess 2 mmol/L (-3-3) FiO2 50.0 Test 09/29/17 22:00 09/29/17 22:39 09/30/17 02:00 09/30/17 03:44 Glucose (Fingerstick) 72 mg/dL (70-99) 77 mg/dL (70-99) 144 mg/dL (70-99) O2 Saturation 94 % (92-99) Arterial Blood pH 7.19 (7.35-7.45) Arterial Blood pCO2 at Patient Temp 79 mmHg (35-46) Arterial Blood pO2 at Patient Temp 89 mmHg (65-108) Arterial Blood HCO3 29 mmol/L (21-28) Arterial Blood Base Excess -1 mmol/L (-3-3) FiO2 30 Test 09/30/17 06:15 09/30/17 08:15 09/30/17 09:00 09/30/17 10:30 White Blood Count 9.8 x10^3/uL (4.0-11.0) Red Blood Count 3.73 x10^6/uL (3.50-5.40) Hemoglobin 12.0 g/dL (12.0-15.5) Hematocrit 37.3 % (36.0-47.0) Mean Corpuscular Volume 100 fL (79-100) Mean Corpuscular Hemoglobin 32 pg (25-35) Mean Corpuscular Hemoglobin Concent 32 g/dL (31-37) Red Cell Distribution Width 14.5 % (11.5-14.5) Platelet Count 130 x10^3/uL (140-400) Neutrophils (%) (Auto) 75 % (31-73) Lymphocytes (%) (Auto) 14 % (24-48) Monocytes (%) (Auto) 9 % (0-9) Eosinophils (%) (Auto) 1 % (0-3) Basophils (%) (Auto) 0 % (0-3) Neutrophils # (Auto) 7.3 x10^3uL (1.8-7.7) Lymphocytes # (Auto) 1.4 x10^3/uL (1.0-4.8) Monocytes # (Auto) 0.9 x10^3/uL (0.0-1.1) Eosinophils # (Auto) 0.1 x10^3/uL (0.0-0.7) Basophils # (Auto) 0.0 x10^3/uL (0.0-0.2) Sodium Level 138 mmol/L (136-145) Potassium Level 4.5 mmol/L (3.5-5.1) Chloride Level 98 mmol/L (98-107) Carbon Dioxide Level 24 mmol/L (21-32) Anion Gap 16 (6-14) Blood Urea Nitrogen 65 mg/dL (7-20) Creatinine 8.8 mg/dL (0.6-1.0) Estimated GFR (Cockcroft-Gault) 5.5 Glucose Level 221 mg/dL (70-99) Calcium Level 8.9 mg/dL (8.5-10.1) Magnesium Level 1.8 mg/dL (1.8-2.4) Troponin I Quantitative < 0.017 ng/mL (0.000-0.055) < 0.017 ng/mL (0.000-0.055) O2 Saturation 96 % (92-99) Arterial Blood pH 7.36 (7.35-7.45) Arterial Blood pCO2 at Patient Temp 44 mmHg (35-46) Arterial Blood pO2 at Patient Temp 88 mmHg (65-108) Arterial Blood HCO3 24 mmol/L (21-28) Arterial Blood Base Excess -2 mmol/L (-3-3) FiO2 30 Influenza Type A Antigen Negative (NEGATIVE) Influenza Type B Antigen Negative (NEGATIVE) Laboratory Tests Test 09/29/17 20:10 09/29/17 20:11 09/29/17 20:19 09/29/17 20:33 Glucose (Fingerstick) 43 mg/dL (70-99) 122 mg/dL (70-99) White Blood Count 9.7 x10^3/uL (4.0-11.0) Red Blood Count 3.74 x10^6/uL (3.50-5.40) Hemoglobin 12.0 g/dL (12.0-15.5) Hematocrit 37.9 % (36.0-47.0) Mean Corpuscular Volume 101 fL (79-100) Mean Corpuscular Hemoglobin 32 pg (25-35) Mean Corpuscular Hemoglobin Concent 32 g/dL (31-37) Red Cell Distribution Width 14.7 % (11.5-14.5) Platelet Count 135 x10^3/uL (140-400) Neutrophils (%) (Auto) 72 % (31-73) Lymphocytes (%) (Auto) 17 % (24-48) Monocytes (%) (Auto) 10 % (0-9) Eosinophils (%) (Auto) 1 % (0-3) Basophils (%) (Auto) 1 % (0-3) Neutrophils # (Auto) 7.0 x10^3uL (1.8-7.7) Lymphocytes # (Auto) 1.6 x10^3/uL (1.0-4.8) Monocytes # (Auto) 1.0 x10^3/uL (0.0-1.1) Eosinophils # (Auto) 0.1 x10^3/uL (0.0-0.7) Basophils # (Auto) 0.1 x10^3/uL (0.0-0.2) Sodium Level 144 mmol/L (136-145) Potassium Level 4.3 mmol/L (3.5-5.1) Chloride Level 103 mmol/L (98-107) Carbon Dioxide Level 31 mmol/L (21-32) Anion Gap 10 (6-14) Blood Urea Nitrogen 62 mg/dL (7-20) Creatinine 8.7 mg/dL (0.6-1.0) Estimated GFR (Cockcroft-Gault) 5.5 Glucose Level 55 mg/dL (70-99) Lactic Acid Level 0.4 mmol/L (0.4-2.0) Calcium Level 8.7 mg/dL (8.5-10.1) Magnesium Level 1.9 mg/dL (1.8-2.4) Total Bilirubin 0.4 mg/dL (0.2-1.0) Direct Bilirubin 0.1 mg/dL (0.0-0.2) Aspartate Amino Transf (AST/SGOT) 16 U/L (15-37) Alanine Aminotransferase (ALT/SGPT) 11 U/L (14-59) Alkaline Phosphatase 78 U/L (46-116) Ammonia < 10 mcmol/L (11-34) Creatine Kinase 63 U/L (26-192) Creatine Kinase MB (Mass) < 0.5 ng/mL (0.0-3.6) Creatine Kinase MB Relative Index % (0-4) Troponin I Quantitative < 0.017 ng/mL (0.000-0.055) YM-Rru-F-Type Natriuretic Peptide 1262 pg/mL (0-124) Total Protein 6.8 g/dL (6.4-8.2) Albumin 3.1 g/dL (3.4-5.0) Thyroid Stimulating Hormone (TSH) 1.835 uIU/mL (0.358-3.74) O2 Saturation 96 % (92-99) Arterial Blood pH 7.19 (7.35-7.45) Arterial Blood pCO2 at Patient Temp 88 mmHg (35-46) Arterial Blood pO2 at Patient Temp 100 mmHg (65-108) Arterial Blood HCO3 33 mmol/L (21-28) Arterial Blood Base Excess 2 mmol/L (-3-3) FiO2 50.0 Test 09/29/17 22:00 09/29/17 22:39 09/30/17 02:00 09/30/17 03:44 Glucose (Fingerstick) 72 mg/dL (70-99) 77 mg/dL (70-99) 144 mg/dL (70-99) O2 Saturation 94 % (92-99) Arterial Blood pH 7.19 (7.35-7.45) Arterial Blood pCO2 at Patient Temp 79 mmHg (35-46) Arterial Blood pO2 at Patient Temp 89 mmHg (65-108) Arterial Blood HCO3 29 mmol/L (21-28) Arterial Blood Base Excess -1 mmol/L (-3-3) FiO2 30 Test 09/30/17 06:15 09/30/17 08:15 09/30/17 09:00 09/30/17 10:30 White Blood Count 9.8 x10^3/uL (4.0-11.0) Red Blood Count 3.73 x10^6/uL (3.50-5.40) Hemoglobin 12.0 g/dL (12.0-15.5) Hematocrit 37.3 % (36.0-47.0) Mean Corpuscular Volume 100 fL (79-100) Mean Corpuscular Hemoglobin 32 pg (25-35) Mean Corpuscular Hemoglobin Concent 32 g/dL (31-37) Red Cell Distribution Width 14.5 % (11.5-14.5) Platelet Count 130 x10^3/uL (140-400) Neutrophils (%) (Auto) 75 % (31-73) Lymphocytes (%) (Auto) 14 % (24-48) Monocytes (%) (Auto) 9 % (0-9) Eosinophils (%) (Auto) 1 % (0-3) Basophils (%) (Auto) 0 % (0-3) Neutrophils # (Auto) 7.3 x10^3uL (1.8-7.7) Lymphocytes # (Auto) 1.4 x10^3/uL (1.0-4.8) Monocytes # (Auto) 0.9 x10^3/uL (0.0-1.1) Eosinophils # (Auto) 0.1 x10^3/uL (0.0-0.7) Basophils # (Auto) 0.0 x10^3/uL (0.0-0.2) Sodium Level 138 mmol/L (136-145) Potassium Level 4.5 mmol/L (3.5-5.1) Chloride Level 98 mmol/L (98-107) Carbon Dioxide Level 24 mmol/L (21-32) Anion Gap 16 (6-14) Blood Urea Nitrogen 65 mg/dL (7-20) Creatinine 8.8 mg/dL (0.6-1.0) Estimated GFR (Cockcroft-Gault) 5.5 Glucose Level 221 mg/dL (70-99) Calcium Level 8.9 mg/dL (8.5-10.1) Magnesium Level 1.8 mg/dL (1.8-2.4) Troponin I Quantitative < 0.017 ng/mL (0.000-0.055) < 0.017 ng/mL (0.000-0.055) O2 Saturation 96 % (92-99) Arterial Blood pH 7.36 (7.35-7.45) Arterial Blood pCO2 at Patient Temp 44 mmHg (35-46) Arterial Blood pO2 at Patient Temp 88 mmHg (65-108) Arterial Blood HCO3 24 mmol/L (21-28) Arterial Blood Base Excess -2 mmol/L (-3-3) FiO2 30 Influenza Type A Antigen Negative (NEGATIVE) Influenza Type B Antigen Negative (NEGATIVE) Medications Active Scripts Medications Dose Route/Sig Max Daily Dose Days Date Category [phoslo] 2,001 Mg PO TID 01/16/17 Reported Movantik (Naloxegol Oxalate) 25 Mg Tablet 25 Mg PO DAILY 01/16/17 Reported Xopenex Hfa (Levalbuterol Tartrate) 15 Gm Hfa.aer.ad 2 Puff IH QID 01/16/17 Reported Levemir Flextouch (Insulin Detemir) 300 Units/3 Ml Insuln.pen 30 Units SQ QHS 07/20/15 Rx Novolog Flexpen (Insulin Aspart) 300 Units/3 Ml Insuln.pen 15 Units SQ TIDAC 07/20/15 Rx Keppra (Levetiracetam) 500 Mg Tablet 1 Tab PO BID 07/20/15 Reported Vol-Care Rx Tablet (Vit B Cmplx 3/Fa/Vit C/Biotin) 1 Each Tablet 1 Each PO DAILY 07/20/15 Reported Clopidogrel (Clopidogrel Bisulfate) 75 Mg Tablet 1 Tab PO DAILY 07/20/15 Reported Alprazolam 0.25 Mg Tablet 1 Tab PO PRN BID PRN 07/20/15 Reported Celexa (Citalopram Hydrobromide) 10 Mg Tablet 1 Tab PO DAILY 07/20/15 Reported Allopurinol 100 Mg Tablet 1 Tab PO DAILY 07/20/15 Reported Sensipar (Cinacalcet Hcl) 30 Mg Tablet 1 Tab PO DAILY 07/20/15 Reported Simvastatin 40 Mg Tablet 1 Tab PO QHS 07/20/15 Reported Gabapentin 300 Mg Capsule 1 Cap PO HS 07/20/15 Reported Senna (Sennosides) 8.6 Mg Capsule 8.6 Mg PO BID 07/20/15 Reported Cyclobenzaprine Hcl 10 Mg Tablet 1 Tab PO BID 07/20/15 Reported Reglan (Metoclopramide Hcl) 10 Mg Tablet 5 Mg PO QIDACHS 07/20/15 Reported Clonidine Hcl 0.1 Mg Tablet 1 Tab PO TID 07/20/15 Reported Hydrocodone-Apap 5-325 (Hydrocodone Bit/Acetaminophen) 1 Each Tablet 1 Tab PO PRN Q6HRS PRN 07/20/15 Reported Impression . NOTE DICTATED A/C RESP FAILURE POSSIBLE GRAM NEG PNEUMONIA AGREE WITH CURRENT RX WARNER MOSER MD Sep 30, 2017 11:27
--- NOTE | 2017-09-30 12:27 | PDOC2 ---
CARDIAC CONSULT DATE OF CONSULT Date of Consult DATE: 09/30/17 TIME: 12:14 REASON FOR CONSULT Reason for Consult: elevated BNP REFERRING PHYSICIAN Referring Physician: Rita SOURCE Source: Chart review HISTORY OF PRESENT ILLNESS HISTORY OF PRESENT ILLNESS This is a 67 yo female admitted for complains of SOA. Her HD Wednesday was only finished senior care per staff due to low BP. She missed her dialysis Wednesday since she was not feeling good she said. and has been having episodes of hypoglycemia. No edema. Denies any CP, nausea or vomiting. Upon admission she was hypoxic and was placed on bipap and has been decreased to NC for O2 supplementation and currently having HD. She feels a little better today but tired otherwise no discomfort. PAST MEDICAL HISTORY Past Medical History Cardiovascular: CHF, HTN, Hyperlipidemia CENTRAL NERVOUS SYSTEM: CVA (R hemiparesis ), Seizure (post CVA ) GI: Constipation (occasionally ), Other (intermittent reflux esophagitis, gastroparesis ) Heme/Onc: Anemia NOS (renal ) Psych: Depression Musculoskeletal: Other (h/o Fracture R knee (casted)) Rheumatologic: Gout Renal/: Chronic renal failure (ESRD ) Endocrine: Diabetes (with neuropathy ) PAST SURGICAL HISTORY Past Surgical History AVG RUE, Cholecystectomy, (x5), Hysterectomy FAMILY HISTORY Family History Coronary Artery Disease (PGF, Father), Kidney Disease (ESRD Brother ) SOCIAL HISTORY Smoke: No ALCOHOL: none Lives: with Family CURRENT MEDICATIONS CURRENT MEDICATIONS Current Medications Medications (Trade) Dose Ordered Sig/Yumiko Route PRN Reason Start Time Stop Time Status Last Admin Dose Admin Dextrose (Dextrose 50%-Water Syringe) 25 gm 1X ONCE IV 09/29/17 20:15 09/29/17 20:18 DC 09/29/17 20:13 Vancomycin HCl (Vanco Per Pharmacy) 1 each PRN DAILY PRN MC SEE COMMENTS 09/29/17 21:00 09/30/17 01:10 Piperacillin Sod/ Tazobactam Sod (Zosyn) 2.25 gm 1X ONCE IVP 09/29/17 21:30 09/29/17 21:31 DC 09/29/17 21:13 Levofloxacin/ Dextrose 150 ml @ 150 mls/hr 1X ONCE IV 09/29/17 22:00 09/29/17 22:59 DC 09/29/17 21:14 Vancomycin HCl 2 gm/Dextrose 500 ml @ 250 mls/hr 1X ONCE IV 09/29/17 23:00 09/30/17 00:59 DC 09/29/17 22:54 Dextrose 1,000 ml @ 75 mls/hr [id number] IV 09/29/17 22:30 09/30/17 10:38 DC 09/29/17 22:57 Sodium Chloride 500 ml @ 500 mls/hr 1X ONCE IV 09/29/17 23:00 09/29/17 23:59 DC 09/29/17 22:48 Piperacillin Sod/ Tazobactam Sod (Zosyn) 2.25 gm Q8HRS IVP 09/30/17 06:00 09/30/17 09:40 DC 09/30/17 05:36 Dopamine HCl/ Dextrose 250 ml @ 25.004 mls/ hr CONT PRN IV SEE I/O RECORD 09/30/17 01:15 09/30/17 10:26 ALLERGIES ALLERGIES: Coded Allergies: No Known Drug Allergies (Unverified , 07/19/15) ROS Review of System 14 point ROS evaluated with pertinent positives noted per HPI PHYSICAL EXAM General: Oriented X3, Cooperative, No acute distress HEENT: Atraumatic, Mucous membr. moist/pink Lungs: Other (basilr crackles) Heart: Regular rate (SR), Other (distant heart sounds) Abdomen: Soft, Other (obese) Extremities: No cyanosis, Other (1+ bilateral LE pittineg edema) Skin: No significant lesion Neuro: Normal speech, Sensation intact Psych/Mental Status: Other (drowsy) MUSCULOSKELETAL: Osteoarthritic changes both hands VITALS VITALS Vital Signs Date Time Temp Pulse Resp B/P (MAP) Pulse Ox O2 Delivery O2 Flow Rate FiO2 09/30/17 11:34 98 Nasal Cannula 4.0 09/30/17 11:00 77 24 107/62 (77) 09/30/17 08:00 98.7 98.7 LABS Lab: Laboratory Tests Test 09/29/17 20:10 09/29/17 20:11 09/29/17 20:19 09/29/17 20:33 Glucose (Fingerstick) 43 mg/dL (70-99) 122 mg/dL (70-99) White Blood Count 9.7 x10^3/uL (4.0-11.0) Red Blood Count 3.74 x10^6/uL (3.50-5.40) Hemoglobin 12.0 g/dL (12.0-15.5) Hematocrit 37.9 % (36.0-47.0) Mean Corpuscular Volume 101 fL (79-100) Mean Corpuscular Hemoglobin 32 pg (25-35) Mean Corpuscular Hemoglobin Concent 32 g/dL (31-37) Red Cell Distribution Width 14.7 % (11.5-14.5) Platelet Count 135 x10^3/uL (140-400) Neutrophils (%) (Auto) 72 % (31-73) Lymphocytes (%) (Auto) 17 % (24-48) Monocytes (%) (Auto) 10 % (0-9) Eosinophils (%) (Auto) 1 % (0-3) Basophils (%) (Auto) 1 % (0-3) Neutrophils # (Auto) 7.0 x10^3uL (1.8-7.7) Lymphocytes # (Auto) 1.6 x10^3/uL (1.0-4.8) Monocytes # (Auto) 1.0 x10^3/uL (0.0-1.1) Eosinophils # (Auto) 0.1 x10^3/uL (0.0-0.7) Basophils # (Auto) 0.1 x10^3/uL (0.0-0.2) Sodium Level 144 mmol/L (136-145) Potassium Level 4.3 mmol/L (3.5-5.1) Chloride Level 103 mmol/L (98-107) Carbon Dioxide Level 31 mmol/L (21-32) Anion Gap 10 (6-14) Blood Urea Nitrogen 62 mg/dL (7-20) Creatinine 8.7 mg/dL (0.6-1.0) Estimated GFR (Cockcroft-Gault) 5.5 Glucose Level 55 mg/dL (70-99) Lactic Acid Level 0.4 mmol/L (0.4-2.0) Calcium Level 8.7 mg/dL (8.5-10.1) Magnesium Level 1.9 mg/dL (1.8-2.4) Total Bilirubin 0.4 mg/dL (0.2-1.0) Direct Bilirubin 0.1 mg/dL (0.0-0.2) Aspartate Amino Transf (AST/SGOT) 16 U/L (15-37) Alanine Aminotransferase (ALT/SGPT) 11 U/L (14-59) Alkaline Phosphatase 78 U/L (46-116) Ammonia < 10 mcmol/L (11-34) Creatine Kinase 63 U/L (26-192) Creatine Kinase MB (Mass) < 0.5 ng/mL (0.0-3.6) Creatine Kinase MB Relative Index % (0-4) Troponin I Quantitative < 0.017 ng/mL (0.000-0.055) BA-Hkr-T-Type Natriuretic Peptide 1262 pg/mL (0-124) Total Protein 6.8 g/dL (6.4-8.2) Albumin 3.1 g/dL (3.4-5.0) Thyroid Stimulating Hormone (TSH) 1.835 uIU/mL (0.358-3.74) O2 Saturation 96 % (92-99) Arterial Blood pH 7.19 (7.35-7.45) Arterial Blood pCO2 at Patient Temp 88 mmHg (35-46) Arterial Blood pO2 at Patient Temp 100 mmHg (65-108) Arterial Blood HCO3 33 mmol/L (21-28) Arterial Blood Base Excess 2 mmol/L (-3-3) FiO2 50.0 Test 09/29/17 22:00 09/29/17 22:39 09/30/17 02:00 09/30/17 03:44 Glucose (Fingerstick) 72 mg/dL (70-99) 77 mg/dL (70-99) 144 mg/dL (70-99) O2 Saturation 94 % (92-99) Arterial Blood pH 7.19 (7.35-7.45) Arterial Blood pCO2 at Patient Temp 79 mmHg (35-46) Arterial Blood pO2 at Patient Temp 89 mmHg (65-108) Arterial Blood HCO3 29 mmol/L (21-28) Arterial Blood Base Excess -1 mmol/L (-3-3) FiO2 30 Test 09/30/17 06:15 09/30/17 08:15 09/30/17 09:00 09/30/17 10:30 White Blood Count 9.8 x10^3/uL (4.0-11.0) Red Blood Count 3.73 x10^6/uL (3.50-5.40) Hemoglobin 12.0 g/dL (12.0-15.5) Hematocrit 37.3 % (36.0-47.0) Mean Corpuscular Volume 100 fL (79-100) Mean Corpuscular Hemoglobin 32 pg (25-35) Mean Corpuscular Hemoglobin Concent 32 g/dL (31-37) Red Cell Distribution Width 14.5 % (11.5-14.5) Platelet Count 130 x10^3/uL (140-400) Neutrophils (%) (Auto) 75 % (31-73) Lymphocytes (%) (Auto) 14 % (24-48) Monocytes (%) (Auto) 9 % (0-9) Eosinophils (%) (Auto) 1 % (0-3) Basophils (%) (Auto) 0 % (0-3) Neutrophils # (Auto) 7.3 x10^3uL (1.8-7.7) Lymphocytes # (Auto) 1.4 x10^3/uL (1.0-4.8) Monocytes # (Auto) 0.9 x10^3/uL (0.0-1.1) Eosinophils # (Auto) 0.1 x10^3/uL (0.0-0.7) Basophils # (Auto) 0.0 x10^3/uL (0.0-0.2) Sodium Level 138 mmol/L (136-145) Potassium Level 4.5 mmol/L (3.5-5.1) Chloride Level 98 mmol/L (98-107) Carbon Dioxide Level 24 mmol/L (21-32) Anion Gap 16 (6-14) Blood Urea Nitrogen 65 mg/dL (7-20) Creatinine 8.8 mg/dL (0.6-1.0) Estimated GFR (Cockcroft-Gault) 5.5 Glucose Level 221 mg/dL (70-99) Calcium Level 8.9 mg/dL (8.5-10.1) Magnesium Level 1.8 mg/dL (1.8-2.4) Troponin I Quantitative < 0.017 ng/mL (0.000-0.055) < 0.017 ng/mL (0.000-0.055) O2 Saturation 96 % (92-99) Arterial Blood pH 7.36 (7.35-7.45) Arterial Blood pCO2 at Patient Temp 44 mmHg (35-46) Arterial Blood pO2 at Patient Temp 88 mmHg (65-108) Arterial Blood HCO3 24 mmol/L (21-28) Arterial Blood Base Excess -2 mmol/L (-3-3) FiO2 30 Influenza Type A Antigen Negative (NEGATIVE) Influenza Type B Antigen Negative (NEGATIVE) ASSESSMENT/PLAN ASSESSMENT/PLAN 1. Acute on chronic respiratory failure: better, pulmonary following 2. Acute on chronic diastolic CHF: multifactorial with contributing hypoglycemia episodes and missed HD 3. ESRD: missed dialysis treatment 4. HTN: initially low now controlled 5. DM2/HLP 6. Hx of CVA with right side hemiparesis 7. Morbid obesity with suspicion of NOLVIA/RVH Recommendations 1. Fluid off loading per HD 2. Restart plavix and zocor. Hold BP meds. 3. F/U CXR, TTE today 4. Discussed treatment compliance Problems: ELIECER DOWNS APRN Sep 30, 2017 12:26
--- NOTE | 2017-09-30 12:33 | RAD ---
EXAM: Chest one view. HISTORY: Pneumonia. COMPARISON: 09/29/2017. FINDINGS: A frontal view of the chest is obtained. The left hemidiaphragm is mildly elevated. Left greater than right basilar opacities appear slightly improved, though the difference may be technical. A small left pleural effusion is likely present. There is no pneumothorax. The heart is not enlarged. A right brachiocephalic vein stent is noted. IMPRESSION: 1. Left greater than right basilar opacities have improved but not completely resolved.
[2017-09-30] MEDS ORDERED: LIDOCAINE 1% / SOD BICARB 8.4% 20 ML VIAL. IJ ONE ×2 (13:45)
[2017-09-30] MEDS: CLOPIDOGREL BISULFATE 75 MG TABLET PO SCH (15:00)
--- NOTE | 2017-09-30 15:03 | HP ---
ADMIT DATE: 09/29/2017 LOCATION: ICU, room 109. REASON FOR ADMISSION TO THE HOSPITAL: Mental status changes, hypoglycemia, hypercapnic respiratory failure, end-stage renal disease, on hemodialysis. HISTORY OF PRESENT ILLNESS: The patient is a 67-year-old female patient known to me. She has a history of diabetes, hypertension, hyperlipidemia, morbid obesity, had a previous stroke more than 5 years ago, she is in a wheelchair level. She is on hemodialysis for at least 5 years, she goes on Wednesday, Wednesday and Wednesday. She has also had diabetes. She takes insulin at home. The last time I had seen was a couple of weeks ago in the office, she was doing relatively well. She was not feeling well on Wednesday and she only got dialyzed for 1 hour and she has been not eating and she has been sleepy and she missed her dialysis on Wednesday and by evening, she was more lethargic, hard to arouse, was brought to the hospital. The patient had a sugar of 40, was given D50 and her blood gas shows CO2 of 90, pH 7.19 and the patient was put on BiPAP with hypercapnic respiratory failure. The patient was admitted to the ICU. Chest x-ray shows infiltrate in the lung and was started on broad spectrum antibiotics, suspecting pneumonia and also Renal was consulted to help with starting on the dialysis while she was here. PAST MEDICAL HISTORY: As mentioned, she has a history of diabetes, hypertension, hyperlipidemia, morbid obesity, CVA, seizures, and end-stage renal disease, on dialysis. PAST SURGICAL HISTORY: Has AV shunt in both upper extremities, left and right. She had a surgery in the abdomen. ALLERGIES: No known drug allergies. MEDICATIONS AT HOME: Allopurinol 100 mg daily, Xanax 0.25 p.r.n. for anxiety, Sensipar 30 mg daily, Celexa 10 mg daily, clonidine 0.1 three times a day, Plavix 75 mg daily, cyclobenzaprine 10 mg twice a day, hydrocodone 5/325 q. 6, insulin 15 units 3 times daily, NovoLog, Levemir 30 units at bedtime, Keppra 500 mg twice a day, Reglan 5 mg before meals, simvastatin 40 mg daily, gabapentin 300 mg at bedtime, Xopenex breathing treatments, Movantik 25 mg p.r.n. for constipation, senna daily, Nephro-Britton one daily, PhosLo 667 mg 3 times daily. PERSONAL HISTORY: Used to be a smoker in the past, quit smoking long time back. Denies alcohol and drug abuse. SOCIAL HISTORY: Lives at home. She is in a motorized wheelchair. She goes to dialysis 3 times a week. Lives with her daughter. FAMILY HISTORY: Positive for diabetes, hypertension, heart disease, kidney problems. REVIEW OF SYSTEMS: Fourteen-system review. Spoke with the patient's daughter, the patient is hard to arouse at this point. She says she has been not feeling well since Wednesday, not eating, sleepy. Denies any fever. PHYSICAL EXAMINATION: GENERAL: The patient is morbidly obese, weight 135 kg, BMI 48. VITAL SIGNS: At the time of admission, temperature 99, pulse 85, respirations 20, blood pressure 124/77, 95% on BiPAP. HEENT: Head is atraumatic. Pupils sluggish. Oral cavity: No congestion. The patient has a bowden face as well as short neck, on BiPAP. NECK: Supple, no mass palpable. CHEST: Symmetrical. CARDIOVASCULAR: S1, S2. No murmurs. LUNGS: Diminished breath sounds. ABDOMEN: Obese belly, has a scar horizontally in the mid abdomen, soft, bowel sounds present, no mass palpable. EXTERNAL GENITALIA: No Phillips. RECTAL: Deferred. EXTREMITIES: No calf tenderness, no edema. The patient has left-sided weakness from previous stroke. NEUROLOGIC: As mentioned, is hard to arouse. The patient is on BiPAP. The patient is flaccid on the left side from previous stroke. LABORATORY DATA: Shows pH of 7.19, pCO2 of 88, bicarbonate 33, saturation 96%. White count 9, hemoglobin 12, platelets 135. Electrolytes show sodium 144, potassium 4.3, chloride 103, bicarbonate 31, BUN 62, creatinine 8.7, glucose 43, fingerstick BNP 1262. TSH is 1.8. Ammonia less than 10. Chest x-ray shows questionable right infrahilar infiltration. EKG negative for acute ischemia. FINAL IMPRESSION: 1. Metabolic encephalopathy. 2. Acute respiratory failure secondary to hypercapnic respiratory failure. 3. Hypoglycemia. 4. Diabetes, insulin-dependent. 5. End-stage renal disease, on dialysis. 6. Suspect pneumonia, left lung, suspect gram negative and gram positive. 7. Old cerebrovascular accident. 8. Hypertension. 9. Hyperlipidemia. 10. Seizures. 11. Morbid obesity. PLAN: At this time, was admitted to the hospital, placed on BiPAP. Her pH was corrected. Hypoglycemia was corrected with D50 and D5W. The patient is getting dialysis today. Seen by Infectious Disease. After culture was done, given vanco and Zosyn and Levaquin to cover for gram-negative and gram-positive pneumonia. Also, we will get cardiac workup done. BNP was elevated. We will get an echocardiogram and also DVT prevention with Lovenox, SCDs and PT and OT and see how the patient's condition improves. The patient is not arousable at this time. We will give some Keppra and think about nutrition in the next 1-2 days if not awake by that bedtime. I spoke with the patient's family. Critical time spent 43 minutes including coordination of care. CARMITA WALL MD DR: EDIE/ayan JOB#: [id number] / [id number] HARLEEN
--- NOTE | 2017-09-30 15:36 | RAD ---
EXAM: Chest one view. HISTORY: Central line placement. COMPARISON: 09/30/2017. FINDINGS: A frontal view of the chest is obtained. A left internal jugular central venous catheter crosses the midline and has its tip within a right brachiocephalic vein stent. Mild elevation of the left hemidiaphragm is stable. Left greater than right basilar opacities are better aerated than on the prior study. A small left pleural effusion cannot be excluded. There is no pneumothorax. The heart is not enlarged. IMPRESSION: 1. The left internal jugular central venous catheter crosses the midline and has its tip within a right brachiocephalic vein stent. Recommend repositioning. 2. Left greater than right basilar infiltrates are better aerated.
--- NOTE | 2017-09-30 15:54 | RAD ---
Procedure: Ultrasound-guided and fluoroscopically guided placement of right internal jugular central venous gigpywhu39/9/2017 3:48 PM Clinical Indication: poor access Discussion: The risks and benefits of the procedure were discussed the patient and/or their payable representative. Informed consent was obtained. A timeout procedure was performed. All elements of maximal sterile barrier technique including the use of a cap, mask, sterile gown, sterile gloves, large sterile sheet, appropriate hand hygiene, and 2% chlorhexidine for cutaneous antisepsis (or acceptable alternative antiseptic per current guidelines) were followed for this procedure. The was prepped and draped in the usual sterile fashion. Ultrasound interrogation of the left neck revealed patency and compressibility of the left internal jugular vein. A 21-gauge micropuncture was then used to gain access to this vein under ultrasound guidance. A hard copy ultrasound image was recorded. A guidewire was advanced centrally. 5 [place] sheath was placed. Over a wire following dilatation, a triple-lumen central venous catheter was advanced centrally. A chest radiograph was obtained demonstrating the catheter to be directed towards the right brachiocephalic vein in the region of the prior stent. Positioning of the stent would not allow placement at the bedside. The patient was transferred to the interventional radiology suite. There are guidewire was advanced into the right atrium which the catheter was advanced. Catheter was found to flush and aspirate normally. Follow-up chest radiograph demonstrates tip at the cavoatrial junction. Catheter secured in place and a sterile dressing was applied. No immediate complications were identified. Impression: Successful ultrasound and fluoroscopically guided placement of left internal jugular triple-lumen central venous catheter
[2017-09-30] MEDS: HEPARIN PF for SUB-Q USE 5,000 UNIT/0.5 ML VIAL. SQ SCH ×2 (16:19→22:30)
--- NOTE | 2017-09-30 19:29 | CONS ---
DATE OF CONSULTATION: 09/30/2017 CONSULTING PHYSICIAN: Dr. Lobo and Dr. Walters, an ER MD. REASON FOR CONSULTATION: Dyspnea/respiratory distress. HISTORY OF PRESENT ILLNESS: A 67-year-old female with end-stage renal disease, on hemodialysis, who missed her last 2 days of dialysis as she was not feeling well, was brought to the ER with hypoxia and was found to have hypoglycemia. She had labs done with normal white count, was afebrile, was placed on BiPAP and was started on empiric IV vancomycin and Zosyn and received 1 dose of Levaquin as there was a chest x-ray which showed possible right lower lobe infiltrate with a left pleural effusion. ID was consulted for further assistance with antibiotic management. Today per nursing, the patient is improving. Currently on pressors. She remains afebrile with no nausea, vomiting, diarrhea, abdominal pain, skin breakdown. The patient is on BiPAP currently. Renal and pulmonary team have been consulted. PAST MEDICAL HISTORY: 1. End-stage renal disease, on dialysis Wednesday, Wednesday and Wednesday. 2. Hypertension. 3. Diabetes. 4. Seizure disorder. 5. Left-sided CVA. 6. Morbid obesity. 7. Hyperlipidemia. 8. Depression. 9. Gout. 10. GERD. 11. Hypothyroidism. 12. DJD. CURRENT MEDICATIONS: 1. IV antibiotics. 2. IV vancomycin. 3. IV Zosyn. 4. Received Levaquin last night. ALLERGIES: No known drug allergies. SOCIAL HISTORY: Negative for ETOH or illicit drug use, smoking. FAMILY HISTORY: As per H and P. REVIEW OF SYSTEMS: Unobtainable as patient is on BiPAP. PHYSICAL EXAMINATION: GENERAL: Awake, unable to verbalize all answers, appears comfortable, on BiPAP. HEENT: Normocephalic, atraumatic. Sclerae are anicteric, no petechial hemorrhage. Mucous membranes dry. NECK: Short, thick neck, supple. LUNGS: Decreased breath sounds at the bases. No rales, no wheezing. No accessory muscle use. CARDIAC: S1, S2. Distant heart sounds. Could not appreciate any murmurs. ABDOMEN: Obese, soft, bowel sounds present, nontender, nondistended. EXTREMITIES: No pedal edema. No cyanosis. DERMATOLOGY: No generalized rash. NEUROLOGIC: Alert, follows some commands, chronic left CVA. PSYCHIATRIC: Unable to assess due to BiPAP. LABORATORY DATA: WBC 9.8, hemoglobin 12.0, hematocrit 37.3, MCV 100, neutrophil count 75%. Sodium 138, potassium 4.5, chloride 98, bicarbonate 24, BUN 65, creatinine 8.8, glucose 221, lactic acid 0.4. TSH 1.8. Ammonia less than 10. Magnesium 1.9, total bilirubin 0.4, direct bilirubin 0.1, AST 16, ALT 11, alkaline phosphatase 78. CK 63. BNP 1262, total protein 6.8, albumin 3.1. Troponin less than 0.017. Micro: None. IMAGING: Chest x-ray. Impression: Question of right infrahilar lung infiltrate. However, EKG lead overlies this area. Recommend followup, well positioned PA view of chest x-ray with repositioning of the lead. IMPRESSION: The patient with end-stage renal disease, on hemodialysis, missed dialysis session as above, with multiple comorbid conditions, admitted to ICU from ER with acute respiratory failure, hypoxia and hypercapnia. 1. Acute respiratory failure with hypoxia and hypercapnia, on pressors and BiPAP. 2. Hypoglycemia. 3. History of diabetes mellitus. 4. Possible pulmonary infiltrate. 5. Hypertension. 6. Diabetes. 7. Morbid obesity. 8. Anemia. 9. Gastroesophageal reflux disease 10. Old cerebrovascular accident. 11. Hypothyroidism. RECOMMENDATIONS: Continue current empiric IV vancomycin and Zosyn, renal dosing. We will taper off antibioitics depending on clinical response. 2. Pulmonary and renal service following. 3. If the patient has any fevers, please obtain blood culture and urine culture if patient is able to make urine. Thank you, Dr. Lobo for consulting ID to participate in this patient's care. We will follow along with you. ARACELY HARRIS MD DR: FIORELLA/ayan JOB#: [id number] / [id number] HARLEEN
[2017-09-30] MEDS: SIMVASTATIN 40 MG TABLET. PO SCH (20:37)
[2017-10-01] VITALS (26 sets, daily range): BP systolic 76–153; BP diastolic 45–70
[2017-10-01 00:11] LABS: HEP B SURFACE ABDY Non Reactive (.)
--- NOTE | 2017-10-01 02:57 | CONS ---
DATE OF CONSULTATION: 09/30/2017 ATTENDING PHYSICIAN: Dr. Lobo. REASON FOR CONSULTATION: The patient seen in pulmonary consultation at the request of Dr. Lobo for acute hypercapnic hypoxemic respiratory failure. Initial pH was 7.19, pCO2 of 88, pO2 of 100. HISTORY OF PRESENT ILLNESS: The patient is a 67-year-old female with a history of diabetes, renal failure on hemodialysis, and prior right CVA with left-sided hemiparesis, presented with increasing shortness of breath. Apparently, she missed 2 days of dialysis, she had saturations on room air of 70%. Blood sugar was 52. She presented to the Emergency Room, was placed on BiPAP. She is currently in the intensive care unit. She is better. She is awake, alert. Her recent blood gas revealed a pH of 7.36, pCO2 of 44, pO2 of 88. The patient has been on oxygen during the day for a very long time. She denies a productive cough. No chest pain or pressure. PAST MEDICAL HISTORY: CVA with left-sided hemiparesis, type 2 diabetes, end-stage renal disease, seizures, previous dialysis shunt, morbid obesity with a body mass index of 48. PAST SURGICAL HISTORY: As above. ALLERGIES: No known drug allergies. REVIEW OF SYSTEMS: As indicative above. Otherwise, a 10-point system was reviewed and negative. SOCIAL HISTORY: She denies alcohol, tobacco. PHYSICAL EXAMINATION: GENERAL: Morbid obese individual, in no respiratory distress, currently on 2 liters saturation 92%. HEENT: Eyes, the sclerae were nonicteric. NECK: Jugular venous distention could not be assessed secondary to body habitus. CHEST: Full expansion. LUNGS: Poor airway flow with no wheezes. CARDIOVASCULAR: Regular rate and rhythm with S1, S2, no S3. ABDOMEN: Soft, obese. EXTREMITIES: Marked edema. NEUROLOGIC: The patient was awake, alert. A detailed neuro exam was not performed. LABORATORY DATA: Reviewed. White count was normal. Hemoglobin and hematocrit were within normal range. BUN and creatinine were elevated. Troponin level was not elevated. Albumin was low. IMAGING: Chest x-ray impression: Left-sided and right-sided basilar opacities. IMPRESSION: 1. Acute on chronic hypercapnic hypoxemic respiratory failure. 2. Morbid obesity. 3. End-stage renal disease, missing hemodialysis. 4. Abnormal x-ray, suspect mostly atelectasis, possibly pneumonia, gram negative. 5. Type 2 diabetes. 6. Seizure. 7. Right cerebrovascular accident with left hemiparesis. PLAN: 1. We will continue at bedtime BiPAP and p.r.n. 2. Empiric antibiotics. Consult Cardiology, already performed: 3. Continue oxygen when off of BiPAP. 4. Enteric antibiotics. I do appreciate the privilege in sharing in the patient's care. Total cumulative critical care time of 40 minutes. WARNER MOSER MD DR: DAWIT/ayan JOB#: [id number] / [id number]
[2017-10-01] MEDS ORDERED: VANCOMYCIN RANDOM LEVEL. MC ONE (05:00)
[2017-10-01] MEDS: HEPARIN PF for SUB-Q USE 5,000 UNIT/0.5 ML VIAL. SQ SCH ×3 (05:53→22:36)
[2017-10-01 06:13] LABS: CALCIUM 8.3 mg/dL (8.5-10.1); CREATININE 5.3 mg/dL (0.6-1.0); GFR 9.8; POTASSIUM 3.8 mmol/L (3.5-5.1)
[2017-10-01 06:14] LABS: CHOLESTEROL/HDL RATIO 2.3
[2017-10-01] MEDS ORDERED: SENNOSIDES/DOCUSATE 8.6/50MG TABLET. PO PRN (06:30)
[2017-10-01] MEDS ORDERED: METHYLNALTREXONE 12 MG/0.6 ML VIAL. SQ PRN (06:30)
--- NOTE | 2017-10-01 06:41 | PDOC ---
ANDRAEAnilMIRIAM HENDRICKS [employer] [employer] 10/01/17 0641: IM PROGRESS NOTES- Subjective Subjective awake, breathing better, cough continues Objective Objective alert appropriate Vitals Vital Signs Date Time Temp Pulse Resp B/P (MAP) Pulse Ox O2 Delivery O2 Flow Rate FiO2 10/01/17 06:00 72 20 76/50 (59) 98 Nasal Cannula 4.0 10/01/17 00:00 98.0 98.0 Physical Exam Physical Exam General appearance - alert,ill appearing, and in no distress Mental Status - alert, oriented to person, place, and time, affect appropriate to mood Head - normal Chest - clear to auscultation, no wheezes, rales or rhonchi, decreased bases Heart - S1 and S2 normal Abdomen - soft, nontender, nondistended,obese, BS + Neurological - no acute focal neurological deficits Musculoskeletal - no muscular tenderness noted Extremities - tr pedal edema Skin - warm and dry Labs Laboratory Tests Test 09/29/17 20:10 09/29/17 20:11 09/29/17 20:19 09/29/17 20:33 Glucose (Fingerstick) 43 mg/dL (70-99) 122 mg/dL (70-99) White Blood Count 9.7 x10^3/uL (4.0-11.0) Red Blood Count 3.74 x10^6/uL (3.50-5.40) Hemoglobin 12.0 g/dL (12.0-15.5) Hematocrit 37.9 % (36.0-47.0) Mean Corpuscular Volume 101 fL (79-100) Mean Corpuscular Hemoglobin 32 pg (25-35) Mean Corpuscular Hemoglobin Concent 32 g/dL (31-37) Red Cell Distribution Width 14.7 % (11.5-14.5) Platelet Count 135 x10^3/uL (140-400) Neutrophils (%) (Auto) 72 % (31-73) Lymphocytes (%) (Auto) 17 % (24-48) Monocytes (%) (Auto) 10 % (0-9) Eosinophils (%) (Auto) 1 % (0-3) Basophils (%) (Auto) 1 % (0-3) Neutrophils # (Auto) 7.0 x10^3uL (1.8-7.7) Lymphocytes # (Auto) 1.6 x10^3/uL (1.0-4.8) Monocytes # (Auto) 1.0 x10^3/uL (0.0-1.1) Eosinophils # (Auto) 0.1 x10^3/uL (0.0-0.7) Basophils # (Auto) 0.1 x10^3/uL (0.0-0.2) Sodium Level 144 mmol/L (136-145) Potassium Level 4.3 mmol/L (3.5-5.1) Chloride Level 103 mmol/L (98-107) Carbon Dioxide Level 31 mmol/L (21-32) Anion Gap 10 (6-14) Blood Urea Nitrogen 62 mg/dL (7-20) Creatinine 8.7 mg/dL (0.6-1.0) Estimated GFR (Cockcroft-Gault) 5.5 Glucose Level 55 mg/dL (70-99) Lactic Acid Level 0.4 mmol/L (0.4-2.0) Calcium Level 8.7 mg/dL (8.5-10.1) Magnesium Level 1.9 mg/dL (1.8-2.4) Total Bilirubin 0.4 mg/dL (0.2-1.0) Direct Bilirubin 0.1 mg/dL (0.0-0.2) Aspartate Amino Transf (AST/SGOT) 16 U/L (15-37) Alanine Aminotransferase (ALT/SGPT) 11 U/L (14-59) Alkaline Phosphatase 78 U/L (46-116) Ammonia < 10 mcmol/L (11-34) Creatine Kinase 63 U/L (26-192) Creatine Kinase MB (Mass) < 0.5 ng/mL (0.0-3.6) Creatine Kinase MB Relative Index % (0-4) Troponin I Quantitative < 0.017 ng/mL (0.000-0.055) BD-Lcz-N-Type Natriuretic Peptide 1262 pg/mL (0-124) Total Protein 6.8 g/dL (6.4-8.2) Albumin 3.1 g/dL (3.4-5.0) Thyroid Stimulating Hormone (TSH) 1.835 uIU/mL (0.358-3.74) O2 Saturation 96 % (92-99) Arterial Blood pH 7.19 (7.35-7.45) Arterial Blood pCO2 at Patient Temp 88 mmHg (35-46) Arterial Blood pO2 at Patient Temp 100 mmHg (65-108) Arterial Blood HCO3 33 mmol/L (21-28) Arterial Blood Base Excess 2 mmol/L (-3-3) FiO2 50.0 Test 09/29/17 21:52 09/29/17 22:00 09/29/17 22:39 09/30/17 02:00 Nasal Screen MRSA (PCR) Negative (Negative) Glucose (Fingerstick) 72 mg/dL (70-99) 77 mg/dL (70-99) O2 Saturation 94 % (92-99) Arterial Blood pH 7.19 (7.35-7.45) Arterial Blood pCO2 at Patient Temp 79 mmHg (35-46) Arterial Blood pO2 at Patient Temp 89 mmHg (65-108) Arterial Blood HCO3 29 mmol/L (21-28) Arterial Blood Base Excess -1 mmol/L (-3-3) FiO2 30 Test 09/30/17 03:44 09/30/17 06:15 09/30/17 08:15 09/30/17 09:00 Glucose (Fingerstick) 144 mg/dL (70-99) White Blood Count 9.8 x10^3/uL (4.0-11.0) Red Blood Count 3.73 x10^6/uL (3.50-5.40) Hemoglobin 12.0 g/dL (12.0-15.5) Hematocrit 37.3 % (36.0-47.0) Mean Corpuscular Volume 100 fL (79-100) Mean Corpuscular Hemoglobin 32 pg (25-35) Mean Corpuscular Hemoglobin Concent 32 g/dL (31-37) Red Cell Distribution Width 14.5 % (11.5-14.5) Platelet Count 130 x10^3/uL (140-400) Neutrophils (%) (Auto) 75 % (31-73) Lymphocytes (%) (Auto) 14 % (24-48) Monocytes (%) (Auto) 9 % (0-9) Eosinophils (%) (Auto) 1 % (0-3) Basophils (%) (Auto) 0 % (0-3) Neutrophils # (Auto) 7.3 x10^3uL (1.8-7.7) Lymphocytes # (Auto) 1.4 x10^3/uL (1.0-4.8) Monocytes # (Auto) 0.9 x10^3/uL (0.0-1.1) Eosinophils # (Auto) 0.1 x10^3/uL (0.0-0.7) Basophils # (Auto) 0.0 x10^3/uL (0.0-0.2) Sodium Level 138 mmol/L (136-145) Potassium Level 4.5 mmol/L (3.5-5.1) Chloride Level 98 mmol/L (98-107) Carbon Dioxide Level 24 mmol/L (21-32) Anion Gap 16 (6-14) Blood Urea Nitrogen 65 mg/dL (7-20) Creatinine 8.8 mg/dL (0.6-1.0) Estimated GFR (Cockcroft-Gault) 5.5 Glucose Level 221 mg/dL (70-99) Calcium Level 8.9 mg/dL (8.5-10.1) Magnesium Level 1.8 mg/dL (1.8-2.4) Troponin I Quantitative < 0.017 ng/mL (0.000-0.055) < 0.017 ng/mL (0.000-0.055) O2 Saturation 96 % (92-99) Arterial Blood pH 7.36 (7.35-7.45) Arterial Blood pCO2 at Patient Temp 44 mmHg (35-46) Arterial Blood pO2 at Patient Temp 88 mmHg (65-108) Arterial Blood HCO3 24 mmol/L (21-28) Arterial Blood Base Excess -2 mmol/L (-3-3) FiO2 30 Test 09/30/17 10:30 09/30/17 11:30 09/30/17 12:15 10/01/17 05:20 Influenza Type A Antigen Negative (NEGATIVE) Influenza Type B Antigen Negative (NEGATIVE) Hepatitis B Surface Antigen Negative (Negative) Hepatitis B Surface Antibody Non reactive (.) Glucose (Fingerstick) 126 mg/dL (70-99) Sodium Level 136 mmol/L (136-145) Potassium Level 3.8 mmol/L (3.5-5.1) Chloride Level 97 mmol/L (98-107) Carbon Dioxide Level 30 mmol/L (21-32) Anion Gap 9 (6-14) Blood Urea Nitrogen 31 mg/dL (7-20) Creatinine 5.3 mg/dL (0.6-1.0) Estimated GFR (Cockcroft-Gault) 9.8 Glucose Level 156 mg/dL (70-99) Calcium Level 8.3 mg/dL (8.5-10.1) Triglycerides Level 124 mg/dL (0-150) Cholesterol Level 135 mg/dL (0-200) LDL Cholesterol, Calculated 51 mg/dL (0-100) VLDL Cholesterol, Calculated 25 mg/dL (0-40) Non-HDL Cholesterol Calculated 76 mg/dL (0-129) HDL Cholesterol 59 mg/dL (40-60) Cholesterol/HDL Ratio 2.3 Random Vancomycin Level 17.8 mcg/mL Laboratory Tests Test 09/30/17 08:15 09/30/17 09:00 09/30/17 10:30 09/30/17 11:30 O2 Saturation 96 % (92-99) Arterial Blood pH 7.36 (7.35-7.45) Arterial Blood pCO2 at Patient Temp 44 mmHg (35-46) Arterial Blood pO2 at Patient Temp 88 mmHg (65-108) Arterial Blood HCO3 24 mmol/L (21-28) Arterial Blood Base Excess -2 mmol/L (-3-3) FiO2 30 Troponin I Quantitative < 0.017 ng/mL (0.000-0.055) Influenza Type A Antigen Negative (NEGATIVE) Influenza Type B Antigen Negative (NEGATIVE) Hepatitis B Surface Antigen Negative (Negative) Hepatitis B Surface Antibody Non reactive (.) Test 09/30/17 12:15 10/01/17 05:20 Glucose (Fingerstick) 126 mg/dL (70-99) Sodium Level 136 mmol/L (136-145) Potassium Level 3.8 mmol/L (3.5-5.1) Chloride Level 97 mmol/L (98-107) Carbon Dioxide Level 30 mmol/L (21-32) Anion Gap 9 (6-14) Blood Urea Nitrogen 31 mg/dL (7-20) Creatinine 5.3 mg/dL (0.6-1.0) Estimated GFR (Cockcroft-Gault) 9.8 Glucose Level 156 mg/dL (70-99) Calcium Level 8.3 mg/dL (8.5-10.1) Triglycerides Level 124 mg/dL (0-150) Cholesterol Level 135 mg/dL (0-200) LDL Cholesterol, Calculated 51 mg/dL (0-100) VLDL Cholesterol, Calculated 25 mg/dL (0-40) Non-HDL Cholesterol Calculated 76 mg/dL (0-129) HDL Cholesterol 59 mg/dL (40-60) Cholesterol/HDL Ratio 2.3 Random Vancomycin Level 17.8 mcg/mL Meds Current Medications Clopidogrel Bisulfate (Plavix) 75 mg DAILY PO ; Start 09/30/17 at 15:00 Dextrose (Dextrose 50%-Water Syringe) 12.5 gm PRN Q15MIN PRN IV SEE COMMENTS; Start 09/30/17 at 10:15 Heparin Sodium (Porcine) (Heparin Sq) 5,000 unit Q8HRS SQ Last administered on 10/01/17 05:53; Start 09/30/17 at 14:00 Info (PHARMACY MONITORING -- do not chart) 1 each PRN DAILY PRN MC SEE COMMENTS ; Start 09/30/17 at 10:15 Info (PHARMACY MONITORING -- do not chart) 1 each PRN DAILY PRN MC SEE COMMENTS ; Start 09/30/17 at 10:15; Status UNV Lactobacillus Rhamnosus (Culturelle) 1 cap BID PO Last administered on 20:37; Start 09/30/17 at 09:00 Levetiracetam 500 mg/Sodium Chloride 105 ml @ 420 mls/hr Q12HR IV Last administered on 09/30/17 20:36; Start 09/30/17 at 10:30 Lidocaine/Sodium Bicarbonate (Buffered Lidocaine 1%) 3 ml 1X ONCE IJ Last administered on 09/30/17 14:31; Start 09/30/17 at 13:45; Stop 09/30/17 at 13:46 ; Status DC Lidocaine/Sodium Bicarbonate (Buffered Lidocaine 1%) 20 ml STK-MED ONCE IJ ; Start 09/30/17 at 13:45; Stop 09/30/17 at 13:46; Status DC Simvastatin (Zocor) 40 mg QHS PO Last administered on 09/30/17 20:37; Start 09/30/17 at 21:00 Sodium Chloride 1,000 ml @ 400 mls/hr Q2H30M PRN IV PATENCY; Start 09/30/17 at 10:13; Stop 09/30/17 at 22:12; Status DC Sodium Chloride 1,000 ml @ 1,000 mls/hr Q1H PRN IV hypotension; Start 09/30/17 at 10:13; Stop 09/30/17 at 16:12; Status DC Vancomycin HCl 1 each 1X ONCE MC Last administered on 10/01/17t 05:20; Start 10/01/17 at 05:00; Stop 10/01/17 at 05:01; Status DC Assessment Assessment FINAL IMPRESSION: 1. Metabolic encephalopathy. 2. Hyperacute respiratory failure secondary to hypercapnic respiratory failure. 3. Hypoglycemia. 4. Diabetes, insulin-dependent. 5. End-stage renal disease, on dialysis. 6. Suspect pneumonia, left lung, suspect gram negative and gram positive. 7. Old cerebrovascular accident. 8. Hypertension. 9. Hyperlipidemia. 10. Seizures. 11. Morbid obesity. PLAN: 10/01/17 acute hypercapnic respiratory failure - Bipap prn, NC -pulmonary following acute diastolic HF - cardiology following abnormal CXR bibasilar infiltrates improving - ID following - Zosyn DC - IV vanco continues - nebulizer treatments - BC negative DM - BS 126-156 BS change to q6h for NPO, low intensity SSI. NOrmal home dose Novolog 15u TIDac and Levemir 30u daily HTN with hypotension - off BP meds - albumin prn with dialysis nutrition - NPO - advance diet as tolerated when ok with pulmonary weakness debility - PT OT h/o CVA with L hemiparesis constipation - Movantik and senokot at home -add relistor prn for now gout - allopurinol restarted ESRD - nephrology following - in patient dialysis - Phoslo restarted Depression - celexa restarted DVT/GI - lovenox PPI Please refer to orders for further plan of care. PLAN: At this time, was admitted to the hospital, placed on BiPAP. Her pH was corrected. Hypoglycemia was corrected with D50 and D5W. The patient is getting dialysis today. Seen by Infectious Disease. After culture was done, given vanco and Zosyn and Levaquin to cover for gram-negative and gram-positive pneumonia. Also, we will get cardiac workup done. BNP was elevated. We will get an echocardiogram and also DVT prevention with Lovenox, SCDs and PT and OT and see how the patient's condition improves. The patient is not arousable at this time. We will give some Keppra and think about nutrition in the next 1-2 days if not awake by that bedtime. I spoke with the patient's family. Plan Plan For more details regarding further plans, please refer to the orders. MIRIAM RODRIGUEZ MD 10/01/17 0950: IM PROGRESS NOTES- Assessment Assessment Hypotension is improving. Doing better.Wants to eat. Cancel video swallow and advance diet. The patient was seen and examined by me. Chart reviewed and plan of care formulated. Discussed with, reviewed and agree with ART OBJECTS SUPERVISOR's notes, plan of care and orders with modifications as necessary. For more details regarding further plans, please refer to the orders. MIRIAM RODRIGUEZ APRN Oct 01, 2017 06:41 MIRIAM RODRIGUEZ MD Oct 01, 2017 09:50
[2017-10-01 06:55] LABS: BASO % 1 % (0-3); EOS % 2 % (0-3); HEMATOCRIT 35.6 % (36.0-47.0); HEMOGLOBIN 11.4 g/dL (12.0-15.5); LYMPH # 0.9 x10^3/uL (1.0-4.8); LYMPH % 15 % (24-48); MEAN CORPUSCULAR HEMOGLOBIN 32 pg (25-35); MEAN CORPUSCULAR HGB CONC 32 g/dL (31-37); MEAN CORPUSCULAR VOLUME 100 fL (79-100); MONO % 10 % (0-9); NEUT % 72 % (31-73); PLATELET COUNT 116 x10^3/uL (140-400); RED BLOOD COUNT 3.57 x10^6/uL (3.50-5.40); RED CELL DISTRIBUTION WIDTH 14.3 % (11.5-14.5); WHITE BLOOD COUNT 5.9 x10^3/uL (4.0-11.0)
[2017-10-01] MEDS: LACTOBACILLUS RHAMNOSUS GG 1 CAPSULE. PO SCH ×2 (07:21→20:32)
[2017-10-01] MEDS: CALCIUM ACETATE 667 MG CAPSULE PO SCH ×3 (07:21→17:26)
[2017-10-01] MEDS: CITALOPRAM 10 MG TABLET. PO SCH (07:21)
[2017-10-01] MEDS: CINACALCET HCL 30 MG TABLET PO SCH (07:22)
[2017-10-01] MEDS: CLOPIDOGREL BISULFATE 75 MG TABLET PO SCH (07:22)
[2017-10-01] MEDS: ALLOPURINOL 100 MG TABLET. PO SCH (07:22)
[2017-10-01] MEDS ORDERED: PANTOPRAZOLE 40 MG TABLET.DR. PO SCH (07:30)
--- NOTE | 2017-10-01 08:08 | PDOC ---
Infectious Disease Note Subjective Subjective pt is more alert today, says is hungry, still on pressors no f/c/n/v/d ROS ROS GEN: Denies fevers, chills, sweats HEENT: Denies blurred vision, sore throat CV: Denies chest pain RESP: cough and sob is improving GI: Denies n/v/d NEURO: Denies confusion, dizziness MSK: Denies weakness, joint pain/swelling Vital Sign Vital Signs Vital Signs Date Time Temp Pulse Resp B/P (MAP) Pulse Ox O2 Delivery O2 Flow Rate FiO2 10/01/17 07:00 70 17 146/59 (88) 97 Nasal Cannula 4.0 10/01/17 00:00 98.0 98.0 Physical Exam PHYSICAL EXAM GENERAL: Awake, alert, comfortable HEENT: Sclerae are anicteric, no petechial hemorrhage. Mucous membranes dry. NECK: Short, thick neck, supple. LUNGS: Decreased breath sounds at the bases. no wheezing. CARDIAC: S1, S2. Distant heart sounds. ABDOMEN: Obese, soft,BS+, nontender, nondistended. EXTREMITIES: No pedal edema. No cyanosis. DERMATOLOGY: No generalized rash. NEUROLOGIC: Alert xox3 chronic left CVA. PSYCHIATRIC:appro mood and affect Labs Lab Laboratory Tests Test 09/30/17 08:15 09/30/17 09:00 09/30/17 10:30 09/30/17 11:30 O2 Saturation 96 % (92-99) Arterial Blood pH 7.36 (7.35-7.45) Arterial Blood pCO2 at Patient Temp 44 mmHg (35-46) Arterial Blood pO2 at Patient Temp 88 mmHg (65-108) Arterial Blood HCO3 24 mmol/L (21-28) Arterial Blood Base Excess -2 mmol/L (-3-3) FiO2 30 Troponin I Quantitative < 0.017 ng/mL (0.000-0.055) Influenza Type A Antigen Negative (NEGATIVE) Influenza Type B Antigen Negative (NEGATIVE) Hepatitis B Surface Antigen Negative (Negative) Hepatitis B Surface Antibody Non reactive (.) Test 09/30/17 12:15 10/01/17 05:20 Glucose (Fingerstick) 126 mg/dL (70-99) White Blood Count 5.9 x10^3/uL (4.0-11.0) Red Blood Count 3.57 x10^6/uL (3.50-5.40) Hemoglobin 11.4 g/dL (12.0-15.5) Hematocrit 35.6 % (36.0-47.0) Mean Corpuscular Volume 100 fL (79-100) Mean Corpuscular Hemoglobin 32 pg (25-35) Mean Corpuscular Hemoglobin Concent 32 g/dL (31-37) Red Cell Distribution Width 14.3 % (11.5-14.5) Platelet Count 116 x10^3/uL (140-400) Neutrophils (%) (Auto) 72 % (31-73) Lymphocytes (%) (Auto) 15 % (24-48) Monocytes (%) (Auto) 10 % (0-9) Eosinophils (%) (Auto) 2 % (0-3) Basophils (%) (Auto) 1 % (0-3) Neutrophils # (Auto) 4.2 x10^3uL (1.8-7.7) Lymphocytes # (Auto) 0.9 x10^3/uL (1.0-4.8) Monocytes # (Auto) 0.6 x10^3/uL (0.0-1.1) Eosinophils # (Auto) 0.1 x10^3/uL (0.0-0.7) Basophils # (Auto) 0.0 x10^3/uL (0.0-0.2) Sodium Level 136 mmol/L (136-145) Potassium Level 3.8 mmol/L (3.5-5.1) Chloride Level 97 mmol/L (98-107) Carbon Dioxide Level 30 mmol/L (21-32) Anion Gap 9 (6-14) Blood Urea Nitrogen 31 mg/dL (7-20) Creatinine 5.3 mg/dL (0.6-1.0) Estimated GFR (Cockcroft-Gault) 9.8 Glucose Level 156 mg/dL (70-99) Calcium Level 8.3 mg/dL (8.5-10.1) Triglycerides Level 124 mg/dL (0-150) Cholesterol Level 135 mg/dL (0-200) LDL Cholesterol, Calculated 51 mg/dL (0-100) VLDL Cholesterol, Calculated 25 mg/dL (0-40) Non-HDL Cholesterol Calculated 76 mg/dL (0-129) HDL Cholesterol 59 mg/dL (40-60) Cholesterol/HDL Ratio 2.3 Thyroid Stimulating Hormone (TSH) 0.504 uIU/mL (0.358-3.74) Random Vancomycin Level 17.8 mcg/mL Micro bc ngtd Objective Assessment 1. Acute respiratory failure with hypoxia and hypercapnia, on pressors and BiPAP.Cllinically improving 2. Hypoglycemia.resolved 3. diabetes mellitus. 4. pulmonary infiltrate. 5. Hypertension. 6. Diabetes. 7. Morbid obesity. 8. Anemia. 9. Gastroesophageal reflux disease 10. Old cerebrovascular accident. 11. Hypothyroidism. Plan Plan of Care 1.Pt clinically improving 2.Continue current empiric IV vancomycin and observe pharmacy to assist 3. We will taper off empiric abx depending on clinical response. 4. Pulmonary and renal service following. ARACELY HARRIS MD Oct 01, 2017 08:08
[2017-10-01] MEDS: IPRATRPIUM/ALBUTEROL 0.5/2.5MG 3 ML NEBU. NEB SCH ×4 (08:13→19:54)
[2017-10-01] MEDS ORDERED: IV NORMAL SALINE 1000ML BAG 1,000 ML IV PRN ×2 (08:27)
[2017-10-01] MEDS ORDERED: DIALYSIS PATIENT. MC PRN ×2 (08:30)
[2017-10-01] MEDS: VANCOMYCIN PER PHARMACY MC PRN ×2 (10:06→10:14)
--- NOTE | 2017-10-01 10:59 | PDOC ---
Dialysis Progress Note Dialysis Note Dialysis Note Seen on Hemodialysis, tolerating treatment Okay for now Vitals on Hemodialysis General Appearance: Awake: Alert Oriented x 1? Neck: No JVD or JVP Chest: CTA Forrest x rare RLL rales Heart: S1 S2 -distal Abdomen - Soft NTND - obese Extremities - No Edema ESRD: Dialysis as below F 180 NR 4.0 Hrs 4 K 2.5 Ca 140 Na 35 HC03 Qb 350 + Qd 500+ Heparin 0 Units Uf 1-2 Kgs or to dry weight as tolerated May give 25-50 gms of 25% Albumin if needed to maintain Hemodynamic stability Treatment plan reviewed and discussed with card decorator Vitals Vital Signs Vital Signs Date Time Temp Pulse Resp B/P (MAP) Pulse Ox O2 Delivery O2 Flow Rate FiO2 10/01/17 10:00 69 16 120/57 (78) 95 Nasal Cannula 4.0 10/01/17 08:00 98.3 98.3 Labs Last Labs Laboratory Tests Test 09/29/17 20:10 09/29/17 20:11 09/29/17 20:19 09/29/17 20:33 Glucose (Fingerstick) 43 mg/dL (70-99) 122 mg/dL (70-99) White Blood Count 9.7 x10^3/uL (4.0-11.0) Red Blood Count 3.74 x10^6/uL (3.50-5.40) Hemoglobin 12.0 g/dL (12.0-15.5) Hematocrit 37.9 % (36.0-47.0) Mean Corpuscular Volume 101 fL (79-100) Mean Corpuscular Hemoglobin 32 pg (25-35) Mean Corpuscular Hemoglobin Concent 32 g/dL (31-37) Red Cell Distribution Width 14.7 % (11.5-14.5) Platelet Count 135 x10^3/uL (140-400) Neutrophils (%) (Auto) 72 % (31-73) Lymphocytes (%) (Auto) 17 % (24-48) Monocytes (%) (Auto) 10 % (0-9) Eosinophils (%) (Auto) 1 % (0-3) Basophils (%) (Auto) 1 % (0-3) Neutrophils # (Auto) 7.0 x10^3uL (1.8-7.7) Lymphocytes # (Auto) 1.6 x10^3/uL (1.0-4.8) Monocytes # (Auto) 1.0 x10^3/uL (0.0-1.1) Eosinophils # (Auto) 0.1 x10^3/uL (0.0-0.7) Basophils # (Auto) 0.1 x10^3/uL (0.0-0.2) Sodium Level 144 mmol/L (136-145) Potassium Level 4.3 mmol/L (3.5-5.1) Chloride Level 103 mmol/L (98-107) Carbon Dioxide Level 31 mmol/L (21-32) Anion Gap 10 (6-14) Blood Urea Nitrogen 62 mg/dL (7-20) Creatinine 8.7 mg/dL (0.6-1.0) Estimated GFR (Cockcroft-Gault) 5.5 Glucose Level 55 mg/dL (70-99) Lactic Acid Level 0.4 mmol/L (0.4-2.0) Calcium Level 8.7 mg/dL (8.5-10.1) Magnesium Level 1.9 mg/dL (1.8-2.4) Total Bilirubin 0.4 mg/dL (0.2-1.0) Direct Bilirubin 0.1 mg/dL (0.0-0.2) Aspartate Amino Transf (AST/SGOT) 16 U/L (15-37) Alanine Aminotransferase (ALT/SGPT) 11 U/L (14-59) Alkaline Phosphatase 78 U/L (46-116) Ammonia < 10 mcmol/L (11-34) Creatine Kinase 63 U/L (26-192) Creatine Kinase MB (Mass) < 0.5 ng/mL (0.0-3.6) Creatine Kinase MB Relative Index % (0-4) Troponin I Quantitative < 0.017 ng/mL (0.000-0.055) UL-Znr-T-Type Natriuretic Peptide 1262 pg/mL (0-124) Total Protein 6.8 g/dL (6.4-8.2) Albumin 3.1 g/dL (3.4-5.0) Thyroid Stimulating Hormone (TSH) 1.835 uIU/mL (0.358-3.74) O2 Saturation 96 % (92-99) Arterial Blood pH 7.19 (7.35-7.45) Arterial Blood pCO2 at Patient Temp 88 mmHg (35-46) Arterial Blood pO2 at Patient Temp 100 mmHg (65-108) Arterial Blood HCO3 33 mmol/L (21-28) Arterial Blood Base Excess 2 mmol/L (-3-3) FiO2 50.0 Test 09/29/17 21:52 09/29/17 22:00 09/29/17 22:39 09/30/17 02:00 Nasal Screen MRSA (PCR) Negative (Negative) Glucose (Fingerstick) 72 mg/dL (70-99) 77 mg/dL (70-99) O2 Saturation 94 % (92-99) Arterial Blood pH 7.19 (7.35-7.45) Arterial Blood pCO2 at Patient Temp 79 mmHg (35-46) Arterial Blood pO2 at Patient Temp 89 mmHg (65-108) Arterial Blood HCO3 29 mmol/L (21-28) Arterial Blood Base Excess -1 mmol/L (-3-3) FiO2 30 Test 09/30/17 03:44 09/30/17 06:15 09/30/17 08:15 09/30/17 09:00 Glucose (Fingerstick) 144 mg/dL (70-99) White Blood Count 9.8 x10^3/uL (4.0-11.0) Red Blood Count 3.73 x10^6/uL (3.50-5.40) Hemoglobin 12.0 g/dL (12.0-15.5) Hematocrit 37.3 % (36.0-47.0) Mean Corpuscular Volume 100 fL (79-100) Mean Corpuscular Hemoglobin 32 pg (25-35) Mean Corpuscular Hemoglobin Concent 32 g/dL (31-37) Red Cell Distribution Width 14.5 % (11.5-14.5) Platelet Count 130 x10^3/uL (140-400) Neutrophils (%) (Auto) 75 % (31-73) Lymphocytes (%) (Auto) 14 % (24-48) Monocytes (%) (Auto) 9 % (0-9) Eosinophils (%) (Auto) 1 % (0-3) Basophils (%) (Auto) 0 % (0-3) Neutrophils # (Auto) 7.3 x10^3uL (1.8-7.7) Lymphocytes # (Auto) 1.4 x10^3/uL (1.0-4.8) Monocytes # (Auto) 0.9 x10^3/uL (0.0-1.1) Eosinophils # (Auto) 0.1 x10^3/uL (0.0-0.7) Basophils # (Auto) 0.0 x10^3/uL (0.0-0.2) Sodium Level 138 mmol/L (136-145) Potassium Level 4.5 mmol/L (3.5-5.1) Chloride Level 98 mmol/L (98-107) Carbon Dioxide Level 24 mmol/L (21-32) Anion Gap 16 (6-14) Blood Urea Nitrogen 65 mg/dL (7-20) Creatinine 8.8 mg/dL (0.6-1.0) Estimated GFR (Cockcroft-Gault) 5.5 Glucose Level 221 mg/dL (70-99) Calcium Level 8.9 mg/dL (8.5-10.1) Magnesium Level 1.8 mg/dL (1.8-2.4) Troponin I Quantitative < 0.017 ng/mL (0.000-0.055) < 0.017 ng/mL (0.000-0.055) O2 Saturation 96 % (92-99) Arterial Blood pH 7.36 (7.35-7.45) Arterial Blood pCO2 at Patient Temp 44 mmHg (35-46) Arterial Blood pO2 at Patient Temp 88 mmHg (65-108) Arterial Blood HCO3 24 mmol/L (21-28) Arterial Blood Base Excess -2 mmol/L (-3-3) FiO2 30 Test 09/30/17 10:30 09/30/17 11:30 09/30/17 12:15 10/01/17 05:20 Influenza Type A Antigen Negative (NEGATIVE) Influenza Type B Antigen Negative (NEGATIVE) Hepatitis B Surface Antigen Negative (Negative) Hepatitis B Surface Antibody Non reactive (.) Glucose (Fingerstick) 126 mg/dL (70-99) White Blood Count 5.9 x10^3/uL (4.0-11.0) Red Blood Count 3.57 x10^6/uL (3.50-5.40) Hemoglobin 11.4 g/dL (12.0-15.5) Hematocrit 35.6 % (36.0-47.0) Mean Corpuscular Volume 100 fL (79-100) Mean Corpuscular Hemoglobin 32 pg (25-35) Mean Corpuscular Hemoglobin Concent 32 g/dL (31-37) Red Cell Distribution Width 14.3 % (11.5-14.5) Platelet Count 116 x10^3/uL (140-400) Neutrophils (%) (Auto) 72 % (31-73) Lymphocytes (%) (Auto) 15 % (24-48) Monocytes (%) (Auto) 10 % (0-9) Eosinophils (%) (Auto) 2 % (0-3) Basophils (%) (Auto) 1 % (0-3) Neutrophils # (Auto) 4.2 x10^3uL (1.8-7.7) Lymphocytes # (Auto) 0.9 x10^3/uL (1.0-4.8) Monocytes # (Auto) 0.6 x10^3/uL (0.0-1.1) Eosinophils # (Auto) 0.1 x10^3/uL (0.0-0.7) Basophils # (Auto) 0.0 x10^3/uL (0.0-0.2) Sodium Level 136 mmol/L (136-145) Potassium Level 3.8 mmol/L (3.5-5.1) Chloride Level 97 mmol/L (98-107) Carbon Dioxide Level 30 mmol/L (21-32) Anion Gap 9 (6-14) Blood Urea Nitrogen 31 mg/dL (7-20) Creatinine 5.3 mg/dL (0.6-1.0) Estimated GFR (Cockcroft-Gault) 9.8 Glucose Level 156 mg/dL (70-99) Calcium Level 8.3 mg/dL (8.5-10.1) Triglycerides Level 124 mg/dL (0-150) Cholesterol Level 135 mg/dL (0-200) LDL Cholesterol, Calculated 51 mg/dL (0-100) VLDL Cholesterol, Calculated 25 mg/dL (0-40) Non-HDL Cholesterol Calculated 76 mg/dL (0-129) HDL Cholesterol 59 mg/dL (40-60) Cholesterol/HDL Ratio 2.3 Thyroid Stimulating Hormone (TSH) 0.504 uIU/mL (0.358-3.74) Random Vancomycin Level 17.8 mcg/mL Laboratory Tests Test 09/30/17 11:30 09/30/17 12:15 10/01/17 05:20 Hepatitis B Surface Antigen Negative (Negative) Hepatitis B Surface Antibody Non reactive (.) Glucose (Fingerstick) 126 mg/dL (70-99) White Blood Count 5.9 x10^3/uL (4.0-11.0) Red Blood Count 3.57 x10^6/uL (3.50-5.40) Hemoglobin 11.4 g/dL (12.0-15.5) Hematocrit 35.6 % (36.0-47.0) Mean Corpuscular Volume 100 fL (79-100) Mean Corpuscular Hemoglobin 32 pg (25-35) Mean Corpuscular Hemoglobin Concent 32 g/dL (31-37) Red Cell Distribution Width 14.3 % (11.5-14.5) Platelet Count 116 x10^3/uL (140-400) Neutrophils (%) (Auto) 72 % (31-73) Lymphocytes (%) (Auto) 15 % (24-48) Monocytes (%) (Auto) 10 % (0-9) Eosinophils (%) (Auto) 2 % (0-3) Basophils (%) (Auto) 1 % (0-3) Neutrophils # (Auto) 4.2 x10^3uL (1.8-7.7) Lymphocytes # (Auto) 0.9 x10^3/uL (1.0-4.8) Monocytes # (Auto) 0.6 x10^3/uL (0.0-1.1) Eosinophils # (Auto) 0.1 x10^3/uL (0.0-0.7) Basophils # (Auto) 0.0 x10^3/uL (0.0-0.2) Sodium Level 136 mmol/L (136-145) Potassium Level 3.8 mmol/L (3.5-5.1) Chloride Level 97 mmol/L (98-107) Carbon Dioxide Level 30 mmol/L (21-32) Anion Gap 9 (6-14) Blood Urea Nitrogen 31 mg/dL (7-20) Creatinine 5.3 mg/dL (0.6-1.0) Estimated GFR (Cockcroft-Gault) 9.8 Glucose Level 156 mg/dL (70-99) Calcium Level 8.3 mg/dL (8.5-10.1) Triglycerides Level 124 mg/dL (0-150) Cholesterol Level 135 mg/dL (0-200) LDL Cholesterol, Calculated 51 mg/dL (0-100) VLDL Cholesterol, Calculated 25 mg/dL (0-40) Non-HDL Cholesterol Calculated 76 mg/dL (0-129) HDL Cholesterol 59 mg/dL (40-60) Cholesterol/HDL Ratio 2.3 Thyroid Stimulating Hormone (TSH) 0.504 uIU/mL (0.358-3.74) Random Vancomycin Level 17.8 mcg/mL Assessment Assessment Problems Medical Problems: (1) Respiratory failure Status: Acute Problems: Plan Plan of Care Problems Medical Problems: (1) Respiratory failure Status: Acute ALCIRA HARRIS MD Oct 01, 2017 10:59
--- NOTE | 2017-10-01 11:00 | PDOC ---
CARDIO Progress Notes Date and Time Date of Service 10/01/2017 Time of Evaluation 1000 Subjective Subjective: No Chest Pain, No shortness of breath, No Palpitations, Other ( feels better today, no discomfort) Vitals Vitals Vital Signs Date Time Temp Pulse Resp B/P (MAP) Pulse Ox O2 Delivery O2 Flow Rate FiO2 10/01/17 10:00 69 16 120/57 (78) 95 Nasal Cannula 4.0 10/01/17 08:00 98.3 98.3 Weight Weight [ ] Input and Output Intake and Output Intake and Output 10/02/17 06:59 Intake Total 25 ml Output Total 0 ml Balance 25 ml Intake Oral 25 ml Output Urine Total 0 ml # Bowel Movements 1 Laboratory Labs Laboratory Tests Test 09/30/17 11:30 09/30/17 12:15 10/01/17 05:20 Hepatitis B Surface Antigen Negative (Negative) Hepatitis B Surface Antibody Non reactive (.) Glucose (Fingerstick) 126 mg/dL (70-99) White Blood Count 5.9 x10^3/uL (4.0-11.0) Red Blood Count 3.57 x10^6/uL (3.50-5.40) Hemoglobin 11.4 g/dL (12.0-15.5) Hematocrit 35.6 % (36.0-47.0) Mean Corpuscular Volume 100 fL (79-100) Mean Corpuscular Hemoglobin 32 pg (25-35) Mean Corpuscular Hemoglobin Concent 32 g/dL (31-37) Red Cell Distribution Width 14.3 % (11.5-14.5) Platelet Count 116 x10^3/uL (140-400) Neutrophils (%) (Auto) 72 % (31-73) Lymphocytes (%) (Auto) 15 % (24-48) Monocytes (%) (Auto) 10 % (0-9) Eosinophils (%) (Auto) 2 % (0-3) Basophils (%) (Auto) 1 % (0-3) Neutrophils # (Auto) 4.2 x10^3uL (1.8-7.7) Lymphocytes # (Auto) 0.9 x10^3/uL (1.0-4.8) Monocytes # (Auto) 0.6 x10^3/uL (0.0-1.1) Eosinophils # (Auto) 0.1 x10^3/uL (0.0-0.7) Basophils # (Auto) 0.0 x10^3/uL (0.0-0.2) Sodium Level 136 mmol/L (136-145) Potassium Level 3.8 mmol/L (3.5-5.1) Chloride Level 97 mmol/L (98-107) Carbon Dioxide Level 30 mmol/L (21-32) Anion Gap 9 (6-14) Blood Urea Nitrogen 31 mg/dL (7-20) Creatinine 5.3 mg/dL (0.6-1.0) Estimated GFR (Cockcroft-Gault) 9.8 Glucose Level 156 mg/dL (70-99) Calcium Level 8.3 mg/dL (8.5-10.1) Triglycerides Level 124 mg/dL (0-150) Cholesterol Level 135 mg/dL (0-200) LDL Cholesterol, Calculated 51 mg/dL (0-100) VLDL Cholesterol, Calculated 25 mg/dL (0-40) Non-HDL Cholesterol Calculated 76 mg/dL (0-129) HDL Cholesterol 59 mg/dL (40-60) Cholesterol/HDL Ratio 2.3 Thyroid Stimulating Hormone (TSH) 0.504 uIU/mL (0.358-3.74) Random Vancomycin Level 17.8 mcg/mL Microbiology Micro Microbiology 09/29/17 Blood Culture - Preliminary, Resulted NO GROWTH AFTER 1 DAY Physical Exam HEENT: Neck Supple W Full Motion Chest: Symmetric LUNGS: Other (diminished bases) Heart: S1S2, RRR (SR) Abdomen: Soft N/T Extremities: No Calf Tenderness Neurology: alert, oriented, follow commands Assessment Assessment 1. Acute on chronic respiratory failure: improved. 2. Acute on chronic diastolic CHF: compensated 3. ESRD: missed dialysis treatment 4. HTN: initially low now controlled 5. DM2/HLP: notable for hypoglycemic episodes. per PCP 6. Hx of CVA with right side hemiparesis 7. Morbid obesity with suspicion of NOLVIA/RVH Recommendations 1. Presently having HD. 2. Continue with secondary prevention. On clonidine at home. BP normalized. Will need lower dosing when restarted. . 3. Echo pending. If unremarkable for changes then no further w/u as an inpt. Will need to consider for outpt stress testing for further risk stratification given her significant risk factors if none recently. 4. Discussed treatment compliance 5. Will follow along peripherally. ELIECER DOWNS APRN Oct 01, 2017 11:00
[2017-10-01] MEDS ORDERED: NOREPINEPHRIN PREMIX 250 ML IV PRN (11:15)
[2017-10-01] MEDS: INSULIN ASPART 300 UNITS/3 ML INSULN.PEN SQ SCH ×3 (12:00→23:30)
[2017-10-01] MEDS: METOCLOPRAMIDE HCL 10 MG/2 ML VIAL. IV SCH ×3 (12:00→23:31)
[2017-10-01] MEDS: ACETAMINOPHEN 325 MG TABLET. PO PRN ×2 (13:35→23:31)
[2017-10-01] MEDS ORDERED: VANCOMYCIN 1 GM in IV DEXTROSE 5% 250 ML IV ONE (15:00)
--- NOTE | 2017-10-01 15:23 | PDOC ---
PULMONARY PROGRESS NOTES Subjective PT MUCH BETTER LESS SOA NO CHEST PAIN Vitals Vital Signs Date Time Temp Pulse Resp B/P (MAP) Pulse Ox O2 Delivery O2 Flow Rate FiO2 10/01/17 13:00 72 16 110/52 (71) 97 Nasal Cannula 4.0 10/01/17 12:00 98.5 98.5 ROS: No Nausea, No Chest Pain, No Abdominal Pain, No Increase Cough General: Alert Lungs: Crackles Cardiovascular: S1, S2 Abdomen: Soft, Other (OBESE) Neuro Exam: Alert Extremities: No Edema Skin: Warm Labs Laboratory Tests Test 09/29/17 20:10 09/29/17 20:11 09/29/17 20:19 09/29/17 20:33 Glucose (Fingerstick) 43 mg/dL (70-99) 122 mg/dL (70-99) White Blood Count 9.7 x10^3/uL (4.0-11.0) Red Blood Count 3.74 x10^6/uL (3.50-5.40) Hemoglobin 12.0 g/dL (12.0-15.5) Hematocrit 37.9 % (36.0-47.0) Mean Corpuscular Volume 101 fL (79-100) Mean Corpuscular Hemoglobin 32 pg (25-35) Mean Corpuscular Hemoglobin Concent 32 g/dL (31-37) Red Cell Distribution Width 14.7 % (11.5-14.5) Platelet Count 135 x10^3/uL (140-400) Neutrophils (%) (Auto) 72 % (31-73) Lymphocytes (%) (Auto) 17 % (24-48) Monocytes (%) (Auto) 10 % (0-9) Eosinophils (%) (Auto) 1 % (0-3) Basophils (%) (Auto) 1 % (0-3) Neutrophils # (Auto) 7.0 x10^3uL (1.8-7.7) Lymphocytes # (Auto) 1.6 x10^3/uL (1.0-4.8) Monocytes # (Auto) 1.0 x10^3/uL (0.0-1.1) Eosinophils # (Auto) 0.1 x10^3/uL (0.0-0.7) Basophils # (Auto) 0.1 x10^3/uL (0.0-0.2) Sodium Level 144 mmol/L (136-145) Potassium Level 4.3 mmol/L (3.5-5.1) Chloride Level 103 mmol/L (98-107) Carbon Dioxide Level 31 mmol/L (21-32) Anion Gap 10 (6-14) Blood Urea Nitrogen 62 mg/dL (7-20) Creatinine 8.7 mg/dL (0.6-1.0) Estimated GFR (Cockcroft-Gault) 5.5 Glucose Level 55 mg/dL (70-99) Lactic Acid Level 0.4 mmol/L (0.4-2.0) Calcium Level 8.7 mg/dL (8.5-10.1) Magnesium Level 1.9 mg/dL (1.8-2.4) Total Bilirubin 0.4 mg/dL (0.2-1.0) Direct Bilirubin 0.1 mg/dL (0.0-0.2) Aspartate Amino Transf (AST/SGOT) 16 U/L (15-37) Alanine Aminotransferase (ALT/SGPT) 11 U/L (14-59) Alkaline Phosphatase 78 U/L (46-116) Ammonia < 10 mcmol/L (11-34) Creatine Kinase 63 U/L (26-192) Creatine Kinase MB (Mass) < 0.5 ng/mL (0.0-3.6) Creatine Kinase MB Relative Index % (0-4) Troponin I Quantitative < 0.017 ng/mL (0.000-0.055) LA-[id number]-[id number]-Type Natriuretic Peptide 1262 pg/mL (0-124) Total Protein 6.8 g/dL (6.4-8.2) Albumin 3.1 g/dL (3.4-5.0) Thyroid Stimulating Hormone (TSH) 1.835 uIU/mL (0.358-3.74) O2 Saturation 96 % (92-99) Arterial Blood pH 7.19 (7.35-7.45) Arterial Blood pCO2 at Patient Temp 88 mmHg (35-46) Arterial Blood pO2 at Patient Temp 100 mmHg (65-108) Arterial Blood HCO3 33 mmol/L (21-28) Arterial Blood Base Excess 2 mmol/L (-3-3) FiO2 50.0 Test 09/29/17 21:52 09/29/17 22:00 09/29/17 22:39 09/30/17 02:00 Nasal Screen MRSA (PCR) Negative (Negative) Glucose (Fingerstick) 72 mg/dL (70-99) 77 mg/dL (70-99) O2 Saturation 94 % (92-99) Arterial Blood pH 7.19 (7.35-7.45) Arterial Blood pCO2 at Patient Temp 79 mmHg (35-46) Arterial Blood pO2 at Patient Temp 89 mmHg (65-108) Arterial Blood HCO3 29 mmol/L (21-28) Arterial Blood Base Excess -1 mmol/L (-3-3) FiO2 30 Test 09/30/17 03:44 09/30/17 06:15 09/30/17 08:15 09/30/17 09:00 Glucose (Fingerstick) 144 mg/dL (70-99) White Blood Count 9.8 x10^3/uL (4.0-11.0) Red Blood Count 3.73 x10^6/uL (3.50-5.40) Hemoglobin 12.0 g/dL (12.0-15.5) Hematocrit 37.3 % (36.0-47.0) Mean Corpuscular Volume 100 fL (79-100) Mean Corpuscular Hemoglobin 32 pg (25-35) Mean Corpuscular Hemoglobin Concent 32 g/dL (31-37) Red Cell Distribution Width 14.5 % (11.5-14.5) Platelet Count 130 x10^3/uL (140-400) Neutrophils (%) (Auto) 75 % (31-73) Lymphocytes (%) (Auto) 14 % (24-48) Monocytes (%) (Auto) 9 % (0-9) Eosinophils (%) (Auto) 1 % (0-3) Basophils (%) (Auto) 0 % (0-3) Neutrophils # (Auto) 7.3 x10^3uL (1.8-7.7) Lymphocytes # (Auto) 1.4 x10^3/uL (1.0-4.8) Monocytes # (Auto) 0.9 x10^3/uL (0.0-1.1) Eosinophils # (Auto) 0.1 x10^3/uL (0.0-0.7) Basophils # (Auto) 0.0 x10^3/uL (0.0-0.2) Sodium Level 138 mmol/L (136-145) Potassium Level 4.5 mmol/L (3.5-5.1) Chloride Level 98 mmol/L (98-107) Carbon Dioxide Level 24 mmol/L (21-32) Anion Gap 16 (6-14) Blood Urea Nitrogen 65 mg/dL (7-20) Creatinine 8.8 mg/dL (0.6-1.0) Estimated GFR (Cockcroft-Gault) 5.5 Glucose Level 221 mg/dL (70-99) Calcium Level 8.9 mg/dL (8.5-10.1) Magnesium Level 1.8 mg/dL (1.8-2.4) Troponin I Quantitative < 0.017 ng/mL (0.000-0.055) < 0.017 ng/mL (0.000-0.055) O2 Saturation 96 % (92-99) Arterial Blood pH 7.36 (7.35-7.45) Arterial Blood pCO2 at Patient Temp 44 mmHg (35-46) Arterial Blood pO2 at Patient Temp 88 mmHg (65-108) Arterial Blood HCO3 24 mmol/L (21-28) Arterial Blood Base Excess -2 mmol/L (-3-3) FiO2 30 Test 09/30/17 10:30 09/30/17 11:30 09/30/17 12:15 10/01/17 05:20 Influenza Type A Antigen Negative (NEGATIVE) Influenza Type B Antigen Negative (NEGATIVE) Hepatitis B Surface Antigen Negative (Negative) Hepatitis B Surface Antibody Non reactive (.) Glucose (Fingerstick) 126 mg/dL (70-99) White Blood Count 5.9 x10^3/uL (4.0-11.0) Red Blood Count 3.57 x10^6/uL (3.50-5.40) Hemoglobin 11.4 g/dL (12.0-15.5) Hematocrit 35.6 % (36.0-47.0) Mean Corpuscular Volume 100 fL (79-100) Mean Corpuscular Hemoglobin 32 pg (25-35) Mean Corpuscular Hemoglobin Concent 32 g/dL (31-37) Red Cell Distribution Width 14.3 % (11.5-14.5) Platelet Count 116 x10^3/uL (140-400) Neutrophils (%) (Auto) 72 % (31-73) Lymphocytes (%) (Auto) 15 % (24-48) Monocytes (%) (Auto) 10 % (0-9) Eosinophils (%) (Auto) 2 % (0-3) Basophils (%) (Auto) 1 % (0-3) Neutrophils # (Auto) 4.2 x10^3uL (1.8-7.7) Lymphocytes # (Auto) 0.9 x10^3/uL (1.0-4.8) Monocytes # (Auto) 0.6 x10^3/uL (0.0-1.1) Eosinophils # (Auto) 0.1 x10^3/uL (0.0-0.7) Basophils # (Auto) 0.0 x10^3/uL (0.0-0.2) Sodium Level 136 mmol/L (136-145) Potassium Level 3.8 mmol/L (3.5-5.1) Chloride Level 97 mmol/L (98-107) Carbon Dioxide Level 30 mmol/L (21-32) Anion Gap 9 (6-14) Blood Urea Nitrogen 31 mg/dL (7-20) Creatinine 5.3 mg/dL (0.6-1.0) Estimated GFR (Cockcroft-Gault) 9.8 Glucose Level 156 mg/dL (70-99) Calcium Level 8.3 mg/dL (8.5-10.1) Triglycerides Level 124 mg/dL (0-150) Cholesterol Level 135 mg/dL (0-200) LDL Cholesterol, Calculated 51 mg/dL (0-100) VLDL Cholesterol, Calculated 25 mg/dL (0-40) Non-HDL Cholesterol Calculated 76 mg/dL (0-129) HDL Cholesterol 59 mg/dL (40-60) Cholesterol/HDL Ratio 2.3 Thyroid Stimulating Hormone (TSH) 0.504 uIU/mL (0.358-3.74) Random Vancomycin Level 17.8 mcg/mL Test 10/01/17 12:16 Glucose (Fingerstick) 121 mg/dL (70-99) Laboratory Tests Test 10/01/17 05:20 10/01/17 12:16 White Blood Count 5.9 x10^3/uL (4.0-11.0) Red Blood Count 3.57 x10^6/uL (3.50-5.40) Hemoglobin 11.4 g/dL (12.0-15.5) Hematocrit 35.6 % (36.0-47.0) Mean Corpuscular Volume 100 fL (79-100) Mean Corpuscular Hemoglobin 32 pg (25-35) Mean Corpuscular Hemoglobin Concent 32 g/dL (31-37) Red Cell Distribution Width 14.3 % (11.5-14.5) Platelet Count 116 x10^3/uL (140-400) Neutrophils (%) (Auto) 72 % (31-73) Lymphocytes (%) (Auto) 15 % (24-48) Monocytes (%) (Auto) 10 % (0-9) Eosinophils (%) (Auto) 2 % (0-3) Basophils (%) (Auto) 1 % (0-3) Neutrophils # (Auto) 4.2 x10^3uL (1.8-7.7) Lymphocytes # (Auto) 0.9 x10^3/uL (1.0-4.8) Monocytes # (Auto) 0.6 x10^3/uL (0.0-1.1) Eosinophils # (Auto) 0.1 x10^3/uL (0.0-0.7) Basophils # (Auto) 0.0 x10^3/uL (0.0-0.2) Sodium Level 136 mmol/L (136-145) Potassium Level 3.8 mmol/L (3.5-5.1) Chloride Level 97 mmol/L (98-107) Carbon Dioxide Level 30 mmol/L (21-32) Anion Gap 9 (6-14) Blood Urea Nitrogen 31 mg/dL (7-20) Creatinine 5.3 mg/dL (0.6-1.0) Estimated GFR (Cockcroft-Gault) 9.8 Glucose Level 156 mg/dL (70-99) Calcium Level 8.3 mg/dL (8.5-10.1) Triglycerides Level 124 mg/dL (0-150) Cholesterol Level 135 mg/dL (0-200) LDL Cholesterol, Calculated 51 mg/dL (0-100) VLDL Cholesterol, Calculated 25 mg/dL (0-40) Non-HDL Cholesterol Calculated 76 mg/dL (0-129) HDL Cholesterol 59 mg/dL (40-60) Cholesterol/HDL Ratio 2.3 Thyroid Stimulating Hormone (TSH) 0.504 uIU/mL (0.358-3.74) Random Vancomycin Level 17.8 mcg/mL Glucose (Fingerstick) 121 mg/dL (70-99) Medications Active Scripts Medications Dose Route/Sig Max Daily Dose Days Date Category [phoslo] 2,001 Mg PO TID 01/16/17 Reported Movantik (Naloxegol Oxalate) 25 Mg Tablet 25 Mg PO DAILY 01/16/17 Reported Xopenex Hfa (Levalbuterol Tartrate) 15 Gm Hfa.aer.ad 2 Puff IH QID 01/16/17 Reported Levemir Flextouch (Insulin Detemir) 300 Units/3 Ml Insuln.pen 30 Units SQ QHS 07/20/15 Rx Novolog Flexpen (Insulin Aspart) 300 Units/3 Ml Insuln.pen 15 Units SQ TIDAC 07/20/15 Rx Keppra (Levetiracetam) 500 Mg Tablet 1 Tab PO BID 07/20/15 Reported Vol-Care Rx Tablet (Vit B Cmplx 3/Fa/Vit C/Biotin) 1 Each Tablet 1 Each PO DAILY 07/20/15 Reported Clopidogrel (Clopidogrel Bisulfate) 75 Mg Tablet 1 Tab PO DAILY 07/20/15 Reported Alprazolam 0.25 Mg Tablet 1 Tab PO PRN BID PRN 07/20/15 Reported Celexa (Citalopram Hydrobromide) 10 Mg Tablet 1 Tab PO DAILY 07/20/15 Reported Allopurinol 100 Mg Tablet 1 Tab PO DAILY 07/20/15 Reported Sensipar (Cinacalcet Hcl) 30 Mg Tablet 1 Tab PO DAILY 07/20/15 Reported Simvastatin 40 Mg Tablet 1 Tab PO QHS 07/20/15 Reported Gabapentin 300 Mg Capsule 1 Cap PO HS 07/20/15 Reported Senna (Sennosides) 8.6 Mg Capsule 8.6 Mg PO BID 07/20/15 Reported Cyclobenzaprine Hcl 10 Mg Tablet 1 Tab PO BID 07/20/15 Reported Reglan (Metoclopramide Hcl) 10 Mg Tablet 5 Mg PO QIDACHS 07/20/15 Reported Clonidine Hcl 0.1 Mg Tablet 1 Tab PO TID 07/20/15 Reported Hydrocodone-Apap 5-325 (Hydrocodone Bit/Acetaminophen) 1 Each Tablet 1 Tab PO PRN Q6HRS PRN 07/20/15 Reported Impression . IMPRESSION: 1. Acute on chronic hypercapnic hypoxemic respiratory failure. 2. Morbid obesity. 3. End-stage renal disease, missing hemodialysis. 4. Abnormal x-ray, suspect mostly atelectasis, possibly pneumonia, gram negative. 5. Type 2 diabetes. 6. Seizure. 7. Right cerebrovascular accident with left hemiparesis. Plan . 1. We will continue at bedtime BiPAP and p.r.n. 2. Empiric antibiotics. 3. FOLLOW CARD INPUT 4. antibx 5. Nutrtion support 6. May need a sleep stucy as outpt 7. GI/DVT proph WARNER MOSER MD Oct 01, 2017 15:23
--- NOTE | 2017-10-01 16:43 | CARD ---
APPROVED REPORT EXAM: Two-dimensional and M-mode echocardiogram with Doppler and color Doppler. Other Information Quality : Fair INDICATION Congestive Heart Failure 2D DIMENSIONS Left Atrium(2D)3.8 (1.6-4.0cm)IVSd1.2 (0.7-1.1cm) Aortic Root(2D)2.7 (2.0-3.7cm)LVDd4.2 (3.9-5.9cm) LVOT Diameter2.1 (1.8-2.4cm)PWd1.2 (0.7-1.1cm) LVDs2.8 (2.5-4.0cm)FS (%) 32.1 % SV47.6 mlLVEF(%)60.7 (>50%) Aortic Valve AoV Peak Celestine.124.1cm/sAoV VTI26.0cm AO Peak GR.6.2mmHgLVOT Peak Celestine.109.6cm/s AO Mean GR.3mmHgAVA (VMAX)3.13cm2 CHELE (VTI)3.80cm2 Mitral Valve MV E Jachiktu94.3cm/sMV DECEL [id number] MV A Qwrykagx461.8cm/sE/A Ratio0.7 Tricuspid Valve TR P. [id number] [id number] TR Peak Gr.[id number] LEFT VENTRICLE The left ventricle is normal size. There is mild concentric left ventricular hypertrophy. Left ventri luis systolic function is normal. The Ejection Fraction is 55-60%. There is grossly normal LV segmenta l wall motion. Technically limited images. Transmitral Doppler flow pattern is Grade I-abnormal relax ation pattern. RIGHT VENTRICLE The right ventricle is normal size. There is normal right ventricular wall thickness. The right ventr icular systolic function is normal. ATRIA The left atrium is mildly dilated. The right atrium size is normal. The interatrial septum is intact with no evidence for an atrial septal defect or patent foramen ovale as noted on 2-D or Doppler imagi ng. AORTIC VALVE The aortic valve is calcified and not well visualized. Doppler and Color Flow revealed no significant aortic regurgitation. There is no significant aortic valvular stenosis. MITRAL VALVE The mitral valve is calcified but opens well. There is no evidence of mitral valve prolapse. There is no mitral valve stenosis. Doppler and Color Flow revealed no mitral valve regurgitation noted. TRICUSPID VALVE The tricuspid valve is normal in structure. Doppler and Color Flow revealed trace tricuspid regurgita tion.There is no pulmonary hypertension.The PA pressure was estimated at 11 mmHg. There is no tricusp id valve prolapse or vegetation. There is no tricuspid valve stenosis. PULMONIC VALVE Doppler and Color Flow revealed no pulmonic valvular regurgitation. There is no pulmonic valvular miguel nosis. GREAT VESSELS The aortic root is normal in size. The ascending aorta is normal in size. The IVC is normal in size a nd collapses >50% with inspiration. PERICARDIAL EFFUSION There is no pleural effusion. There is no evidence of significant pericardial effusion. Critical Notification Critical Value: No <Conclusion> Left ventricle systolic function is normal. The Ejection Fraction is 55-60%. There is grossly normal LV segmental wall motion. Technically limited images.
[2017-10-01] MEDS: SIMVASTATIN 40 MG TABLET. PO SCH (20:32)
[2017-10-02] VITALS (21 sets, daily range): BP systolic 67–156; BP diastolic 43–81
[2017-10-02] MEDS: METOCLOPRAMIDE HCL 10 MG/2 ML VIAL. IV SCH (05:52)
[2017-10-02] MEDS: HEPARIN PF for SUB-Q USE 5,000 UNIT/0.5 ML VIAL. SQ SCH ×3 (05:54→21:37)
[2017-10-02 06:20] LABS: BASO # 0.1 x10^3/uL (0.0-0.2); BASO % 1 % (0-3); EOS % 2 % (0-3); HEMATOCRIT 32.5 % (36.0-47.0); HEMOGLOBIN 10.5 g/dL (12.0-15.5); LYMPH # 1.1 x10^3/uL (1.0-4.8); LYMPH % 20 % (24-48); MEAN CORPUSCULAR HEMOGLOBIN 32 pg (25-35); MEAN CORPUSCULAR HGB CONC 33 g/dL (31-37); MEAN CORPUSCULAR VOLUME 99 fL (79-100); MONO % 11 % (0-9); NEUT % 65 % (31-73); PLATELET COUNT 111 x10^3/uL (140-400); RED BLOOD COUNT 3.29 x10^6/uL (3.50-5.40); RED CELL DISTRIBUTION WIDTH 14.2 % (11.5-14.5); WHITE BLOOD COUNT 5.5 x10^3/uL (4.0-11.0)
[2017-10-02 06:41] LABS: CREATININE 4.1 mg/dL (0.6-1.0); GFR 13.2; POTASSIUM 3.5 mmol/L (3.5-5.1)
[2017-10-02] MEDS ORDERED: PANTOPRAZOLE IV PUSH 40 MG VIAL. IVP SCH (07:30)
[2017-10-02] MEDS: INSULIN ASPART 300 UNITS/3 ML INSULN.PEN SQ SCH ×4 (07:30→21:00)
--- NOTE | 2017-10-02 07:32 | PDOC ---
ANDRAEAnilMIRIAM HENDRICKS APARTMENT LOCATOR 10/02/17 0732: IM PROGRESS NOTES- Subjective Subjective breathing improving Objective Objective alert appropriate Vitals Vital Signs Date Time Temp Pulse Resp B/P (MAP) Pulse Ox O2 Delivery O2 Flow Rate FiO2 10/02/17 06:30 68 20 128/48 (74) 96 Nasal Cannula 4.0 10/02/17 04:15 98.5 98.5 Physical Exam Physical Exam General appearance - alert,ill appearing, and in no distress Mental Status - alert, oriented to person, place, and time, affect appropriate to mood Head - normal Chest - clear to auscultation, no wheezes, rales or rhonchi, decreased bases Heart - S1 and S2 normal Abdomen - soft, nontender, nondistended,obese, BS + Neurological - no acute focal neurological deficits Musculoskeletal - no muscular tenderness noted Extremities - tr pedal edema Skin - warm and dry Labs Laboratory Tests Test 09/30/17 08:15 09/30/17 09:00 09/30/17 10:30 09/30/17 11:30 O2 Saturation 96 % (92-99) Arterial Blood pH 7.36 (7.35-7.45) Arterial Blood pCO2 at Patient Temp 44 mmHg (35-46) Arterial Blood pO2 at Patient Temp 88 mmHg (65-108) Arterial Blood HCO3 24 mmol/L (21-28) Arterial Blood Base Excess -2 mmol/L (-3-3) FiO2 30 Troponin I Quantitative < 0.017 ng/mL (0.000-0.055) Influenza Type A Antigen Negative (NEGATIVE) Influenza Type B Antigen Negative (NEGATIVE) Hepatitis B Surface Antigen Negative (Negative) Hepatitis B Surface Antibody Non reactive (.) Test 09/30/17 12:15 10/01/17 05:20 10/01/17 12:16 10/01/17 17:27 Glucose (Fingerstick) 126 mg/dL (70-99) 121 mg/dL (70-99) 198 mg/dL (70-99) White Blood Count 5.9 x10^3/uL (4.0-11.0) Red Blood Count 3.57 x10^6/uL (3.50-5.40) Hemoglobin 11.4 g/dL (12.0-15.5) Hematocrit 35.6 % (36.0-47.0) Mean Corpuscular Volume 100 fL (79-100) Mean Corpuscular Hemoglobin 32 pg (25-35) Mean Corpuscular Hemoglobin Concent 32 g/dL (31-37) Red Cell Distribution Width 14.3 % (11.5-14.5) Platelet Count 116 x10^3/uL (140-400) Neutrophils (%) (Auto) 72 % (31-73) Lymphocytes (%) (Auto) 15 % (24-48) Monocytes (%) (Auto) 10 % (0-9) Eosinophils (%) (Auto) 2 % (0-3) Basophils (%) (Auto) 1 % (0-3) Neutrophils # (Auto) 4.2 x10^3uL (1.8-7.7) Lymphocytes # (Auto) 0.9 x10^3/uL (1.0-4.8) Monocytes # (Auto) 0.6 x10^3/uL (0.0-1.1) Eosinophils # (Auto) 0.1 x10^3/uL (0.0-0.7) Basophils # (Auto) 0.0 x10^3/uL (0.0-0.2) Sodium Level 136 mmol/L (136-145) Potassium Level 3.8 mmol/L (3.5-5.1) Chloride Level 97 mmol/L (98-107) Carbon Dioxide Level 30 mmol/L (21-32) Anion Gap 9 (6-14) Blood Urea Nitrogen 31 mg/dL (7-20) Creatinine 5.3 mg/dL (0.6-1.0) Estimated GFR (Cockcroft-Gault) 9.8 Glucose Level 156 mg/dL (70-99) Hemoglobin A1c 5.8 % (4.8-5.6) Calcium Level 8.3 mg/dL (8.5-10.1) Triglycerides Level 124 mg/dL (0-150) Cholesterol Level 135 mg/dL (0-200) LDL Cholesterol, Calculated 51 mg/dL (0-100) VLDL Cholesterol, Calculated 25 mg/dL (0-40) Non-HDL Cholesterol Calculated 76 mg/dL (0-129) HDL Cholesterol 59 mg/dL (40-60) Cholesterol/HDL Ratio 2.3 Thyroid Stimulating Hormone (TSH) 0.504 uIU/mL (0.358-3.74) Random Vancomycin Level 17.8 mcg/mL Test 10/01/17 22:39 10/02/17 06:00 Glucose (Fingerstick) 178 mg/dL (70-99) White Blood Count 5.5 x10^3/uL (4.0-11.0) Red Blood Count 3.29 x10^6/uL (3.50-5.40) Hemoglobin 10.5 g/dL (12.0-15.5) Hematocrit 32.5 % (36.0-47.0) Mean Corpuscular Volume 99 fL (79-100) Mean Corpuscular Hemoglobin 32 pg (25-35) Mean Corpuscular Hemoglobin Concent 33 g/dL (31-37) Red Cell Distribution Width 14.2 % (11.5-14.5) Platelet Count 111 x10^3/uL (140-400) Neutrophils (%) (Auto) 65 % (31-73) Lymphocytes (%) (Auto) 20 % (24-48) Monocytes (%) (Auto) 11 % (0-9) Eosinophils (%) (Auto) 2 % (0-3) Basophils (%) (Auto) 1 % (0-3) Neutrophils # (Auto) 3.6 x10^3uL (1.8-7.7) Lymphocytes # (Auto) 1.1 x10^3/uL (1.0-4.8) Monocytes # (Auto) 0.6 x10^3/uL (0.0-1.1) Eosinophils # (Auto) 0.1 x10^3/uL (0.0-0.7) Basophils # (Auto) 0.1 x10^3/uL (0.0-0.2) Sodium Level 134 mmol/L (136-145) Potassium Level 3.5 mmol/L (3.5-5.1) Chloride Level 97 mmol/L (98-107) Carbon Dioxide Level 29 mmol/L (21-32) Anion Gap 8 (6-14) Blood Urea Nitrogen 25 mg/dL (7-20) Creatinine 4.1 mg/dL (0.6-1.0) Estimated GFR (Cockcroft-Gault) 13.2 Glucose Level 143 mg/dL (70-99) Calcium Level 8.0 mg/dL (8.5-10.1) Laboratory Tests Test 10/01/17 12:16 10/01/17 17:27 10/01/17 22:39 10/02/17 06:00 Glucose (Fingerstick) 121 mg/dL (70-99) 198 mg/dL (70-99) 178 mg/dL (70-99) White Blood Count 5.5 x10^3/uL (4.0-11.0) Red Blood Count 3.29 x10^6/uL (3.50-5.40) Hemoglobin 10.5 g/dL (12.0-15.5) Hematocrit 32.5 % (36.0-47.0) Mean Corpuscular Volume 99 fL (79-100) Mean Corpuscular Hemoglobin 32 pg (25-35) Mean Corpuscular Hemoglobin Concent 33 g/dL (31-37) Red Cell Distribution Width 14.2 % (11.5-14.5) Platelet Count 111 x10^3/uL (140-400) Neutrophils (%) (Auto) 65 % (31-73) Lymphocytes (%) (Auto) 20 % (24-48) Monocytes (%) (Auto) 11 % (0-9) Eosinophils (%) (Auto) 2 % (0-3) Basophils (%) (Auto) 1 % (0-3) Neutrophils # (Auto) 3.6 x10^3uL (1.8-7.7) Lymphocytes # (Auto) 1.1 x10^3/uL (1.0-4.8) Monocytes # (Auto) 0.6 x10^3/uL (0.0-1.1) Eosinophils # (Auto) 0.1 x10^3/uL (0.0-0.7) Basophils # (Auto) 0.1 x10^3/uL (0.0-0.2) Sodium Level 134 mmol/L (136-145) Potassium Level 3.5 mmol/L (3.5-5.1) Chloride Level 97 mmol/L (98-107) Carbon Dioxide Level 29 mmol/L (21-32) Anion Gap 8 (6-14) Blood Urea Nitrogen 25 mg/dL (7-20) Creatinine 4.1 mg/dL (0.6-1.0) Estimated GFR (Cockcroft-Gault) 13.2 Glucose Level 143 mg/dL (70-99) Calcium Level 8.0 mg/dL (8.5-10.1) Meds Current Medications Acetaminophen (Tylenol) 650 mg PRN Q6HRS PRN PO PAIN Last administered on 10/01 23:31; Start 10/01/17 at 09:45 Albuterol/ Ipratropium (Duoneb) 3 ml RTQID NEB Last administered on 10/01/17 19:54; Start 10/01/17 at 08:00 Allopurinol (Zyloprim) 100 mg DAILY PO ; Start 10/01/17 at 09:00 Calcium Acetate (Phoslo) 2,001 mg TIDWMEALS PO Last administered on 10/01/17 17:26; Start 10/01/17 at 08:00 Cinacalcet (Sensipar) 30 mg DAILY PO ; Start 10/01/17 at 09:00 Citalopram Hydrobromide (CeleXA) 10 mg DAILY PO ; Start 10/01/17 at 09:00 Guaifenesin (Mucinex) 600 mg BID PO Last administered on 10/01/17 20:32; Start 10/01/17 at 09:00 Info (PHARMACY MONITORING -- do not chart) 1 each PRN DAILY PRN MC SEE COMMENTS ; Start 10/01/17 at 08:30; Status UNV Info (PHARMACY MONITORING -- do not chart) 1 each PRN DAILY PRN MC SEE COMMENTS ; Start 10/01/17 at 08:30; Status UNV Insulin Aspart (NovoLOG) Q6HRS SQ Last administered on 10/01/17 17:29; Start 10/01/17 at 12:00; Stop 10/02/17 at 04:59; Status DC Insulin Aspart (NovoLOG) TIDACHC SQ ; Start 10/02/17 at 07:30 Metoclopramide HCl (Reglan) 2.5 mg Q6HRS IV Last administered on 10/02/17 05: 52; Start 10/01/17 at 12:00 Norepinephrine Bitartrate 250 ml @ 1.875 mls/ hr CONT PRN IV SEE I/O RECORD Last administered on 10/01/17 18:03; Start 10/01/17 at 11:15 Pantoprazole Sodium (Protonix Vial) 40 mg DAILYAC IVP ; Start 10/02/17 at 07:30 ; Status Cancel Pantoprazole Sodium (Protonix) 40 mg DAILYAC PO ; Start 10/01/17 at 07:30; Stop 10/01/17 at 09:54; Status DC Pantoprazole Sodium (Protonix) 40 mg DAILYAC PO ; Start 10/02/17 at 07:30 Sodium Chloride 1,000 ml @ 400 mls/hr Q2H30M PRN IV PATENCY; Start 10/01/17 at 08:27; Stop 10/01/17 at 20:26; Status DC Sodium Chloride 1,000 ml @ 1,000 mls/hr Q1H PRN IV hypotension; Start at 08:27; Stop 10/01/17 at 14:26; Status DC Vancomycin HCl 750 mg/Dextrose 250 ml @ 250 mls/hr QMWF IV ; Start 10/04/17 at 16:00 Vancomycin HCl 1 gm/Dextrose 250 ml @ 250 mls/hr 1X ONCE IV Last administered on 10/01/17t 16:10; Start 10/01/17 at 15:00; Stop 10/01/17 at 15 :59; Status DC Assessment Assessment FINAL IMPRESSION: 1. Metabolic encephalopathy. 2. Hyperacute respiratory failure secondary to hypercapnic respiratory failure. 3. Hypoglycemia. 4. Diabetes, insulin-dependent. 5. End-stage renal disease, on dialysis. 6. Suspect pneumonia, left lung, suspect gram negative and gram positive. 7. Old cerebrovascular accident. 8. Hypertension. 9. Hyperlipidemia. 10. Seizures. 11. Morbid obesity. PLAN: 10/02/17 respiratory failure - Bipap at hs prn - NC otherwise - slowly improving. diastolic HF - dialysis in patient - ECHO EF 55-60% bibasilar infiltrates - remains on Vanco - nebulizer - mucinex DM II - BS 121-198 - oral diet - FSBS change to ac/hs hypotension - persist - off dopamine now on levophed low dose nutrition - diet advancing ESRD - HD inpatient Please refer to orders for further plan of care. 10/01/17 acute hypercapnic respiratory failure - Bipap prn, NC -pulmonary following acute diastolic HF - cardiology following abnormal CXR bibasilar infiltrates improving - ID following - Zosyn DC - IV vanco continues - nebulizer treatments - BC negative DM - BS 126-156 BS change to q6h for NPO, low intensity SSI. NOrmal home dose Novolog 15u TIDac and Levemir 30u daily HTN with hypotension - off BP meds - albumin prn with dialysis nutrition - NPO - advance diet as tolerated when ok with pulmonary weakness debility - PT OT h/o CVA with L hemiparesis constipation - Movantik and senokot at home -add relistor prn for now gout - allopurinol restarted ESRD - nephrology following - in patient dialysis - Phoslo restarted Depression - celexa restarted DVT/GI - heparin PPI ADMIT: PLAN: At this time, was admitted to the hospital, placed on BiPAP. Her pH was corrected. Hypoglycemia was corrected with D50 and D5W. The patient is getting dialysis today. Seen by Infectious Disease. After culture was done, given vanco and Zosyn and Levaquin to cover for gram-negative and gram-positive pneumonia. Also, we will get cardiac workup done. BNP was elevated. We will get an echocardiogram and also DVT prevention with Lovenox, SCDs and PT and OT and see how the patient's condition improves. The patient is not arousable at this time. We will give some Keppra and think about nutrition in the next 1-2 days if not awake by that bedtime. I spoke with the patient's family. For more details regarding further plans, please refer to the orders. Plan Plan For more details regarding further plans, please refer to the orders. MIRIAM RODRIGUEZ MD 10/02/17 1024: IM PROGRESS NOTES- Assessment Assessment Has dry eyes- use artificial tears. Wean Levophed. The patient was seen and examined by me. Chart reviewed and plan of care formulated. Discussed with, reviewed and agree with [facility]'s notes, plan of care and orders with modifications as necessary. For more details regarding further plans, please refer to the orders. MIRIAM RODRIGUEZ APRN Oct 02, 2017 07:32 MIRIAM RODRIGUEZ MD Oct 02, 2017 10:24
[2017-10-02] MEDS: IPRATRPIUM/ALBUTEROL 0.5/2.5MG 3 ML NEBU. NEB SCH ×4 (07:50→19:59)
[2017-10-02] MEDS: PANTOPRAZOLE 40 MG TABLET.DR. PO SCH (08:43)
[2017-10-02] MEDS: CLOPIDOGREL BISULFATE 75 MG TABLET PO SCH (08:43)
[2017-10-02] MEDS: ALLOPURINOL 100 MG TABLET. PO SCH (08:43)
[2017-10-02] MEDS: CITALOPRAM 10 MG TABLET. PO SCH (08:43)
[2017-10-02] MEDS: CALCIUM ACETATE 667 MG CAPSULE PO SCH ×3 (08:43→17:48)
[2017-10-02] MEDS: CINACALCET HCL 30 MG TABLET PO SCH (08:43)
[2017-10-02] MEDS: LACTOBACILLUS RHAMNOSUS GG 1 CAPSULE. PO SCH ×2 (08:45→21:29)
--- NOTE | 2017-10-02 09:37 | PDOC ---
Infectious Disease Note Subjective Subjective Feeling better c/o mild left breast and hip pain earlier, better now 4L O2. Denies SOA/CP/cough Hypotensive, weaning off Levophed ROS ROS GEN: Denies fevers, chills, sweats GI: Denies n/v/d NEURO: Denies confusion, dizziness Vital Sign Vital Signs Vital Signs Date Time Temp Pulse Resp B/P (MAP) Pulse Ox O2 Delivery O2 Flow Rate FiO2 10/02/17 09:00 77 17 156/62 (93) 98 Nasal Cannula 4.0 10/02/17 08:00 98.2 98.2 Physical Exam PHYSICAL EXAM GENERAL: Propped up in bed, smiling HEENT: PERRL, some dry crusting on the left; normal conjunctivae. OC/OP pink NECK: Supple LUNGS: Clear HEART: S1 and S2 ABD: Obese, soft, NT, BS active EXT: No edema, no cyanosis; RUE AV fistula LINING INSERTER: Alert, oriented x 3, no focal neurologic deficit SKIN: No rash [facility]. (09/30). clean Labs Lab Laboratory Tests Test 10/01/17 12:16 10/01/17 17:27 10/01/17 22:39 10/02/17 06:00 Glucose (Fingerstick) 121 mg/dL (70-99) 198 mg/dL (70-99) 178 mg/dL (70-99) White Blood Count 5.5 x10^3/uL (4.0-11.0) Red Blood Count 3.29 x10^6/uL (3.50-5.40) Hemoglobin 10.5 g/dL (12.0-15.5) Hematocrit 32.5 % (36.0-47.0) Mean Corpuscular Volume 99 fL (79-100) Mean Corpuscular Hemoglobin 32 pg (25-35) Mean Corpuscular Hemoglobin Concent 33 g/dL (31-37) Red Cell Distribution Width 14.2 % (11.5-14.5) Platelet Count 111 x10^3/uL (140-400) Neutrophils (%) (Auto) 65 % (31-73) Lymphocytes (%) (Auto) 20 % (24-48) Monocytes (%) (Auto) 11 % (0-9) Eosinophils (%) (Auto) 2 % (0-3) Basophils (%) (Auto) 1 % (0-3) Neutrophils # (Auto) 3.6 x10^3uL (1.8-7.7) Lymphocytes # (Auto) 1.1 x10^3/uL (1.0-4.8) Monocytes # (Auto) 0.6 x10^3/uL (0.0-1.1) Eosinophils # (Auto) 0.1 x10^3/uL (0.0-0.7) Basophils # (Auto) 0.1 x10^3/uL (0.0-0.2) Sodium Level 134 mmol/L (136-145) Potassium Level 3.5 mmol/L (3.5-5.1) Chloride Level 97 mmol/L (98-107) Carbon Dioxide Level 29 mmol/L (21-32) Anion Gap 8 (6-14) Blood Urea Nitrogen 25 mg/dL (7-20) Creatinine 4.1 mg/dL (0.6-1.0) Estimated GFR (Cockcroft-Gault) 13.2 Glucose Level 143 mg/dL (70-99) Calcium Level 8.0 mg/dL (8.5-10.1) Micro BLOOD CULTURE Preliminary NO GROWTH AFTER 2 DAYS Objective Assessment Acute respiratory failure with hypoxia and hypercapnia Hypotensive, on Levophed weaning off Pulmonary infiltrate. CKD/HD Hypoglycemia.resolved Diabetes mellitus. A1C 5.8 Hypertension. Morbid obesity. Anemia. Gastroesophageal reflux disease Old cerebrovascular accident. Hypothyroidism. h/o seizures Plan Plan of Care Vanc, wean soon vanc trough 17.8 Probiotics Supportive care D/w RN Attending Co-Sign The patient was seen and interviewed as well as examined at the bedside. The chart was reviewed. The case was discussed. Agree with the plan of care. ERIBERTO DAVILA APRN Oct 02, 2017 09:37 TRE HARRIS MD Oct 02, 2017 14:49
[2017-10-02] MEDS ORDERED: POLYVINYL ALCOHOL 1.4% OPHTH SOLUTION 15ML BOTTLE. OU PRN (10:00)
[2017-10-02] MEDS ORDERED: METOCLOPRAMIDE HCL 10 MG/2 ML VIAL. IV SCH (12:00)
[2017-10-02] MEDS: METOCLOPRAMIDE ORAL SOLN 10 MG/10 ML SOLUTION. PO SCH ×3 (12:17→21:28)
[2017-10-02] MEDS: POLYVINYL ALCOHOL 1.4% OPHTH SOLUTION 15ML BOTTLE. OU SCH ×3 (14:01→21:33)
--- NOTE | 2017-10-02 14:15 | PDOC ---
PROGRESS NOTES Subjective Subjective SEEN IN FOLLOW UP OF ESRD Objective Objective Vital Signs Date Time Temp Pulse Resp B/P (MAP) Pulse Ox O2 Delivery O2 Flow Rate FiO2 10/02/17 13:00 78 19 131/48 (75) 98 Nasal Cannula 4.0 10/02/17 12:00 98.2 98.2 Intake and Output 10/03/17 07:00 Intake Total 185 ml Output Total 0 ml Balance 185 ml Intake Oral 185 ml Output Urine Total 0 ml # Bowel Movements 1 Physical Exam Abdomen: Normal bowel sounds, Soft, No tenderness, No hepatosplenomegaly, No masses Heart: Regular rate, Normal S1, Normal S2, No murmurs, Gallops Extremities: No clubbing, No cyanosis, No edema, Normal pulses, No tenderness/ swelling General: Alert, Oriented X3, Cooperative, No acute distress Lungs: Clear to auscultation, Normal air movement Psych/Mental Status: Mental status NL, Mood NL Diagnosis RENAL FAILURE: ESRD Assessment Assessment Problems Medical Problems: (1) Respiratory failure Status: Acute Plan Plan of Care FOR DIALYSIS WEDNESDAY. RESP STATUS IS BETTER Comment Review of Relevant I have reviewed the following items gabbi (where applicable) has been applied. Labs Laboratory Tests Test 10/01/17 05:20 10/01/17 12:16 10/01/17 17:27 10/01/17 22:39 White Blood Count 5.9 x10^3/uL (4.0-11.0) Red Blood Count 3.57 x10^6/uL (3.50-5.40) Hemoglobin 11.4 g/dL (12.0-15.5) Hematocrit 35.6 % (36.0-47.0) Mean Corpuscular Volume 100 fL (79-100) Mean Corpuscular Hemoglobin 32 pg (25-35) Mean Corpuscular Hemoglobin Concent 32 g/dL (31-37) Red Cell Distribution Width 14.3 % (11.5-14.5) Platelet Count 116 x10^3/uL (140-400) Neutrophils (%) (Auto) 72 % (31-73) Lymphocytes (%) (Auto) 15 % (24-48) Monocytes (%) (Auto) 10 % (0-9) Eosinophils (%) (Auto) 2 % (0-3) Basophils (%) (Auto) 1 % (0-3) Neutrophils # (Auto) 4.2 x10^3uL (1.8-7.7) Lymphocytes # (Auto) 0.9 x10^3/uL (1.0-4.8) Monocytes # (Auto) 0.6 x10^3/uL (0.0-1.1) Eosinophils # (Auto) 0.1 x10^3/uL (0.0-0.7) Basophils # (Auto) 0.0 x10^3/uL (0.0-0.2) Sodium Level 136 mmol/L (136-145) Potassium Level 3.8 mmol/L (3.5-5.1) Chloride Level 97 mmol/L (98-107) Carbon Dioxide Level 30 mmol/L (21-32) Anion Gap 9 (6-14) Blood Urea Nitrogen 31 mg/dL (7-20) Creatinine 5.3 mg/dL (0.6-1.0) Estimated GFR (Cockcroft-Gault) 9.8 Glucose Level 156 mg/dL (70-99) Hemoglobin A1c 5.8 % (4.8-5.6) Calcium Level 8.3 mg/dL (8.5-10.1) Triglycerides Level 124 mg/dL (0-150) Cholesterol Level 135 mg/dL (0-200) LDL Cholesterol, Calculated 51 mg/dL (0-100) VLDL Cholesterol, Calculated 25 mg/dL (0-40) Non-HDL Cholesterol Calculated 76 mg/dL (0-129) HDL Cholesterol 59 mg/dL (40-60) Cholesterol/HDL Ratio 2.3 Thyroid Stimulating Hormone (TSH) 0.504 uIU/mL (0.358-3.74) Random Vancomycin Level 17.8 mcg/mL Glucose (Fingerstick) 121 mg/dL (70-99) 198 mg/dL (70-99) 178 mg/dL (70-99) Test 10/02/17 06:00 10/02/17 11:29 White Blood Count 5.5 x10^3/uL (4.0-11.0) Red Blood Count 3.29 x10^6/uL (3.50-5.40) Hemoglobin 10.5 g/dL (12.0-15.5) Hematocrit 32.5 % (36.0-47.0) Mean Corpuscular Volume 99 fL (79-100) Mean Corpuscular Hemoglobin 32 pg (25-35) Mean Corpuscular Hemoglobin Concent 33 g/dL (31-37) Red Cell Distribution Width 14.2 % (11.5-14.5) Platelet Count 111 x10^3/uL (140-400) Neutrophils (%) (Auto) 65 % (31-73) Lymphocytes (%) (Auto) 20 % (24-48) Monocytes (%) (Auto) 11 % (0-9) Eosinophils (%) (Auto) 2 % (0-3) Basophils (%) (Auto) 1 % (0-3) Neutrophils # (Auto) 3.6 x10^3uL (1.8-7.7) Lymphocytes # (Auto) 1.1 x10^3/uL (1.0-4.8) Monocytes # (Auto) 0.6 x10^3/uL (0.0-1.1) Eosinophils # (Auto) 0.1 x10^3/uL (0.0-0.7) Basophils # (Auto) 0.1 x10^3/uL (0.0-0.2) Sodium Level 134 mmol/L (136-145) Potassium Level 3.5 mmol/L (3.5-5.1) Chloride Level 97 mmol/L (98-107) Carbon Dioxide Level 29 mmol/L (21-32) Anion Gap 8 (6-14) Blood Urea Nitrogen 25 mg/dL (7-20) Creatinine 4.1 mg/dL (0.6-1.0) Estimated GFR (Cockcroft-Gault) 13.2 Glucose Level 143 mg/dL (70-99) Calcium Level 8.0 mg/dL (8.5-10.1) Glucose (Fingerstick) 199 mg/dL (70-99) Laboratory Tests Test 10/01/17 17:27 10/01/17 22:39 10/02/17 06:00 10/02/17 11:29 Glucose (Fingerstick) 198 mg/dL (70-99) 178 mg/dL (70-99) 199 mg/dL (70-99) White Blood Count 5.5 x10^3/uL (4.0-11.0) Red Blood Count 3.29 x10^6/uL (3.50-5.40) Hemoglobin 10.5 g/dL (12.0-15.5) Hematocrit 32.5 % (36.0-47.0) Mean Corpuscular Volume 99 fL (79-100) Mean Corpuscular Hemoglobin 32 pg (25-35) Mean Corpuscular Hemoglobin Concent 33 g/dL (31-37) Red Cell Distribution Width 14.2 % (11.5-14.5) Platelet Count 111 x10^3/uL (140-400) Neutrophils (%) (Auto) 65 % (31-73) Lymphocytes (%) (Auto) 20 % (24-48) Monocytes (%) (Auto) 11 % (0-9) Eosinophils (%) (Auto) 2 % (0-3) Basophils (%) (Auto) 1 % (0-3) Neutrophils # (Auto) 3.6 x10^3uL (1.8-7.7) Lymphocytes # (Auto) 1.1 x10^3/uL (1.0-4.8) Monocytes # (Auto) 0.6 x10^3/uL (0.0-1.1) Eosinophils # (Auto) 0.1 x10^3/uL (0.0-0.7) Basophils # (Auto) 0.1 x10^3/uL (0.0-0.2) Sodium Level 134 mmol/L (136-145) Potassium Level 3.5 mmol/L (3.5-5.1) Chloride Level 97 mmol/L (98-107) Carbon Dioxide Level 29 mmol/L (21-32) Anion Gap 8 (6-14) Blood Urea Nitrogen 25 mg/dL (7-20) Creatinine 4.1 mg/dL (0.6-1.0) Estimated GFR (Cockcroft-Gault) 13.2 Glucose Level 143 mg/dL (70-99) Calcium Level 8.0 mg/dL (8.5-10.1) Microbiology 09/29/17 Blood Culture - Preliminary, Resulted NO GROWTH AFTER 2 DAYS Medications Current Medications Albuterol/ Ipratropium (Duoneb) 3 ml STK-MED ONCE .ROUTE ; Start 09/29/17 at 20: 09; Stop 09/29/17 at 20:10; Status DC Dextrose (Dextrose 50%-Water Syringe) 25 gm STK-MED ONCE IV ; Start 09/29/17 at 20:11; Stop 09/29/17 at 20:12; Status DC Dextrose (Dextrose 50%-Water Syringe) 25 gm 1X ONCE IV Last administered on 20:13; Start 09/29/17 at 20:15; Stop 09/29/17 at 20:18; Status DC Vancomycin HCl (Vanco Per Pharmacy) 1 each PRN DAILY PRN MC SEE COMMENTS Last administered on 10/01/17 10:14; Start 09/29/17 at 21:00 Piperacillin Sod/ Tazobactam Sod (Zosyn Per Pharmacy) 1 each PRN DAILY PRN MC SEE COMMENTS; Start 09/29/17 at 21:00; Stop 09/30/17 at 08:37; Status DC Levofloxacin/ Dextrose (Levaquin Per Pharmacy) 1 each PRN DAILY PRN MC SEE COMMENTS; Start 09/29/17 at 21:00; Stop 09/29/17 at 22:32; Status DC Piperacillin Sod/ Tazobactam Sod (Zosyn) 2.25 gm 1X ONCE IVP Last administered on 09/29/17 21:13; Start 09/29/17 at 21:30; Stop 09/29/17 at 21:31 ; Status DC Levofloxacin/ Dextrose 150 ml @ 150 mls/hr 1X ONCE IV Last administered on 21:14; Start 09/29/17 at 22:00; Stop 09/29/17 at 22:59; Status DC Vancomycin HCl 2 gm/Dextrose 500 ml @ 250 mls/hr 1X ONCE IV Last administered on 09/29/17 22:54; Start 09/29/17 at 23:00; Stop 09/30/17 at 00:59 ; Status DC Ondansetron HCl (Zofran) 4 mg PRN Q8HRS PRN IV NAUSEA/VOMITING; Start 09/29/17 at 21:15; Stop 09/30/17 at 21:14; Status DC Dextrose 1,000 ml @ 75 mls/hr [id number] IV Last administered on 09/29/17 22:57 ; Start 09/29/17 at 22:30; Stop 09/30/17 at 10:38; Status DC Sodium Chloride 500 ml @ 500 mls/hr 1X ONCE IV Last administered on 22:48; Start 09/29/17 at 23:00; Stop 09/29/17 at 23:59; Status DC Dextrose (Dextrose 50%-Water Syringe) 25 gm 1X ONCE IV ; Start 09/29/17 at 23: 00; Stop 09/29/17 at 23:01; Status Cancel Piperacillin Sod/ Tazobactam Sod (Zosyn) 2.25 gm Q8HRS IVP Last administered on 09/30/17 05:36; Start 09/30/17 at 06:00; Stop 09/30/17 at 09:40; Status DC Lactobacillus Rhamnosus (Culturelle) 1 cap BID PO Last administered on 08:45; Start 09/30/17 at 09:00 Vancomycin HCl 1 each 1X ONCE MC Last administered on 10/01/17 05:20; Start 10/01/17 at 05:00; Stop 10/01/17 at 05:01; Status DC Dopamine HCl/ Dextrose 250 ml @ 25.004 mls/ hr CONT PRN IV SEE I/O RECORD Last administered on 10/01/17 08:54; Start 09/30/17 at 01:15; Stop 10/01/17 at 11:11; Status DC Dextrose (Dextrose 50%-Water Syringe) 12.5 gm PRN Q15MIN PRN IV SEE COMMENTS; Start 09/30/17 at 10:15 Levetiracetam 500 mg/Sodium Chloride 105 ml @ 420 mls/hr Q12HR IV Last administered on 10/02/17 09:42; Start 09/30/17 at 10:30 Heparin Sodium (Porcine) (Heparin Sq) 5,000 unit Q8HRS SQ Last administered on 10/02/17 14:02; Start 09/30/17 at 14:00 Sodium Chloride 1,000 ml @ 1,000 mls/hr Q1H PRN IV hypotension; Start 09/30/17 at 10:13; Stop 09/30/17 at 16:12; Status DC Sodium Chloride 1,000 ml @ 400 mls/hr Q2H30M PRN IV PATENCY; Start 09/30/17 at 10:13; Stop 09/30/17 at 22:12; Status DC Info (PHARMACY MONITORING -- do not chart) 1 each PRN DAILY PRN MC SEE COMMENTS ; Start 09/30/17 at 10:15; Status UNV Info (PHARMACY MONITORING -- do not chart) 1 each PRN DAILY PRN MC SEE COMMENTS ; Start 09/30/17 at 10:15 Lidocaine/Sodium Bicarbonate (Buffered Lidocaine 1%) 3 ml 1X ONCE IJ Last administered on 09/30/17 14:31; Start 09/30/17 at 13:45; Stop 09/30/17 at 13:46 ; Status DC Lidocaine/Sodium Bicarbonate (Buffered Lidocaine 1%) 20 ml STK-MED ONCE IJ ; Start 09/30/17 at 13:45; Stop 09/30/17 at 13:46; Status DC Clopidogrel Bisulfate (Plavix) 75 mg DAILY PO Last administered on 10/02/17 08:43; Start 09/30/17 at 15:00 Simvastatin (Zocor) 40 mg QHS PO Last administered on 10/01/17 20:32; Start 09/30/17 at 21:00 Pantoprazole Sodium (Protonix) 40 mg DAILYAC PO ; Start 10/01/17 at 07:30; Stop 10/01/17 at 09:54; Status DC Guaifenesin (Mucinex) 600 mg BID PO Last administered on 10/02/17 08:43; Start 10/01/17 at 09:00 Albuterol/ Ipratropium (Duoneb) 3 ml RTQID NEB Last administered on 10/02/17 11:49; Start 10/01/17 at 08:00 Allopurinol (Zyloprim) 100 mg DAILY PO Last administered on 10/02/17 08:43; Start 10/01/17 at 09:00 Cinacalcet (Sensipar) 30 mg DAILY PO Last administered on 10/02/17 08:43; Start 10/01/17 at 09:00 Citalopram Hydrobromide (CeleXA) 10 mg DAILY PO Last administered on 08:43; Start 10/01/17 at 09:00 Methylnaltrexone [place] (Relistor) 12 mg PRN DAILY PRN SQ CONSTIPATION; Start 10/01/17 at 06:30 Senna/Docusate Sodium (Senna Plus) 1 tab PRN BID PRN PO CONSTIPATION; Start at 06:30 Calcium Acetate (Phoslo) 2,001 mg TIDWMEALS PO Last administered on 10/02/17 14:01; Start 10/01/17 at 08:00 Metoclopramide HCl (Reglan) 2.5 mg Q6HRS IV Last administered on 10/02/17 05: 52; Start 10/01/17 at 12:00; Stop 10/02/17 at 07:24; Status DC Insulin Aspart (NovoLOG) Q6HRS SQ Last administered on 10/01/17 17:29; Start 10/01/17 at 12:00; Stop 10/02/17 at 04:59; Status DC Sodium Chloride 1,000 ml @ 1,000 mls/hr Q1H PRN IV hypotension; Start at 08:27; Stop 10/01/17 at 14:26; Status DC Sodium Chloride 1,000 ml @ 400 mls/hr Q2H30M PRN IV PATENCY; Start 10/01/17 at 08:27; Stop 10/01/17 at 20:26; Status DC Info (PHARMACY MONITORING -- do not chart) 1 each PRN DAILY PRN MC SEE COMMENTS ; Start 10/01/17 at 08:30; Status UNV Info (PHARMACY MONITORING -- do not chart) 1 each PRN DAILY PRN MC SEE COMMENTS ; Start 10/01/17 at 08:30; Status UNV Acetaminophen (Tylenol) 650 mg PRN Q6HRS PRN PO PAIN Last administered on 10/01 23:31; Start 10/01/17 at 09:45 Vancomycin HCl 1 gm/Dextrose 250 ml @ 250 mls/hr 1X ONCE IV Last administered on 10/01/17 16:10; Start 10/01/17 at 15:00; Stop 10/01/17 at 15 :59; Status DC Pantoprazole Sodium (Protonix Vial) 40 mg DAILYAC IVP ; Start 10/02/17 at 07:30 ; Status Cancel Vancomycin HCl 750 mg/Dextrose 250 ml @ 250 mls/hr QMWF IV ; Start 10/04/17 at 16:00 Norepinephrine Bitartrate 250 ml @ 1.875 mls/ hr CONT PRN IV SEE I/O RECORD Last administered on 10/01/17 18:03; Start 10/01/17 at 11:15 Insulin Aspart (NovoLOG) TIDACHC SQ Last administered on 10/02/17 12:19; Start 10/02/17 at 07:30 Pantoprazole Sodium (Protonix) 40 mg DAILYAC PO Last administered on 08:43; Start 10/02/17 at 07:30 Metoclopramide HCl (Reglan) 5 mg Q6HRS IV ; Start 10/02/17 at 12:00; Stop 10/08 at 12:00; Status DC Metoclopramide HCl (Reglan Oral Solution) 5 mg TIDACHC PO Last administered on 10/02/17 12:17; Start 10/02/17 at 11:30 Artificial Tears (Artificial Tears) 1 drop QID OU Last administered on 14:01; Start 10/02/17 at 13:00 Artificial Tears (Artificial Tears) 1 drop PRN Q15MIN PRN OU DRY EYE; Start at 10:00 Active Scripts Active Levemir Flextouch (Insulin Detemir) 300 Units/3 Ml Insuln.pen 30 Units SQ QHS Novolog Flexpen (Insulin Aspart) 300 Units/3 Ml Insuln.pen 15 Units SQ TIDAC Reported [phoslo] 2,001 Mg PO TID Movantik (Naloxegol Oxalate) 25 Mg Tablet 25 Mg PO DAILY Xopenex Hfa (Levalbuterol Tartrate) 15 Gm Hfa.aer.ad 2 Puff IH QID Keppra (Levetiracetam) 500 Mg Tablet 1 Tab PO BID Vol-Care Rx Tablet (Vit B Cmplx 3/Fa/Vit C/Biotin) 1 Each Tablet 1 Each PO DAILY Clopidogrel (Clopidogrel Bisulfate) 75 Mg Tablet 1 Tab PO DAILY Alprazolam 0.25 Mg Tablet 1 Tab PO PRN BID PRN Celexa (Citalopram Hydrobromide) 10 Mg Tablet 1 Tab PO DAILY Allopurinol 100 Mg Tablet 1 Tab PO DAILY Sensipar (Cinacalcet Hcl) 30 Mg Tablet 1 Tab PO DAILY Simvastatin 40 Mg Tablet 1 Tab PO QHS Gabapentin 300 Mg Capsule 1 Cap PO HS Senna (Sennosides) 8.6 Mg Capsule 8.6 Mg PO BID Cyclobenzaprine Hcl 10 Mg Tablet 1 Tab PO BID Reglan (Metoclopramide Hcl) 10 Mg Tablet 5 Mg PO QIDACHS Clonidine Hcl 0.1 Mg Tablet 1 Tab PO TID Hydrocodone-Apap 5-325 (Hydrocodone Bit/Acetaminophen) 1 Each Tablet 1 Tab PO PRN Q6HRS PRN Vitals/I & O Vital Sign - Last 24 Hours 10/01/17 10/01/17 10/01/17 10/01/17 15:00 16:00 16:00 16:24 Temp 98.4 98.4 Pulse 67 70 Resp 14 18 B/P (MAP) 137/54 (81) 116/47 (70) Pulse Ox 97 97 98 O2 Delivery Nasal Cannula Nasal Cannula Nasal Cannula Nasal Cannula O2 Flow Rate 4.0 4.0 4.0 4.0 10/01/17 10/01/17 10/01/17 10/01/17 17:00 18:00 19:00 19:54 Temp 98.4 98.4 Pulse 70 75 70 Resp 14 28 20 B/P (MAP) 80/52 (61) 118/63 (81) 153/70 (97) Pulse Ox 97 99 99 98 O2 Delivery Nasal Cannula Nasal Cannula Nasal Cannula Nasal Cannula O2 Flow Rate 4.0 4.0 4.0 4.0 10/01/17 10/01/17 10/01/17 10/01/17 20:00 20:00 21:00 22:00 Pulse 74 74 70 Resp 20 20 20 B/P (MAP) 107/57 (74) 123/59 (80) 145/45 (78) Pulse Ox 100 97 98 O2 Delivery Nasal Cannula Nasal Cannula Nasal Cannula Nasal Cannula O2 Flow Rate 4.0 4.0 4.0 4.0 10/01/17 10/02/17 10/02/17 10/02/17 23:00 00:00 00:00 01:00 Temp 98.8 98.8 Pulse 72 74 72 Resp 20 20 20 B/P (MAP) 144/59 (87) 149/46 (80) 132/49 (76) Pulse Ox 95 99 96 O2 Delivery Nasal Cannula Nasal Cannula Nasal Cannula Nasal Cannula O2 Flow Rate 4.0 4.0 4.0 4.0 10/02/17 10/02/17 10/02/17 10/02/17 02:01 03:00 04:00 04:15 Temp 98.5 98.5 Pulse 73 70 70 Resp 20 20 20 B/P (MAP) 135/81 (99) 124/43 (70) 145/52 (83) Pulse Ox 95 95 97 O2 Delivery Nasal Cannula Nasal Cannula Nasal Cannula Nasal Cannula O2 Flow Rate 4.0 4.0 4.0 4.0 10/02/17 10/02/17 10/02/17 10/02/17 04:30 05:00 05:15 05:30 Pulse 67 68 74 72 Resp 20 20 20 B/P (MAP) 128/67 (87) 131/59 (83) 113/57 (75) 98/46 (63) Pulse Ox 97 96 92 O2 Delivery Nasal Cannula Nasal Cannula Nasal Cannula O2 Flow Rate 4.0 4.0 4.0 10/02/17 10/02/17 10/02/17 10/02/17 05:45 06:00 06:30 07:50 Pulse 82 82 68 Resp 20 20 20 B/P (MAP) 67/46 (53) 144/51 (82) 128/48 (74) Pulse Ox 94 96 96 96 O2 Delivery Nasal Cannula Nasal Cannula Nasal Cannula Nasal Cannula O2 Flow Rate 4.0 4.0 4.0 4.0 10/02/17 10/02/17 10/02/17 10/02/17 08:00 08:00 09:00 10:00 Temp 98.2 98.2 Pulse 72 77 73 Resp 17 B/P (MAP) 135/46 (75) 156/62 (93) 114/43 (66) Pulse Ox 96 98 97 O2 Delivery Nasal Cannula Nasal Cannula Nasal Cannula Nasal Cannula O2 Flow Rate 4.0 4.0 4.0 4.0 10/02/17 10/02/17 10/02/17 10/02/17 11:00 11:51 12:00 12:00 Temp 98.2 98.2 Pulse 73 73 Resp 17 B/P (MAP) 113/52 (72) 113/49 (70) Pulse Ox 97 96 98 O2 Delivery Nasal Cannula Nasal Cannula Nasal Cannula Nasal Cannula O2 Flow Rate 4.0 4.0 4.0 4.0 10/02/17 13:00 Pulse 78 Resp 19 B/P (MAP) 131/48 (75) Pulse Ox 98 O2 Delivery Nasal Cannula O2 Flow Rate 4.0 Intake and Output 10/02/17 10/02/17 10/03/17 15:00 23:00 07:00 Intake Total 185 ml Output Total 0 ml Balance 185 ml INOCENCIO MCDONALD MD Oct 02, 2017 14:15
[2017-10-02] MEDS: SIMVASTATIN 40 MG TABLET. PO SCH (21:28)
[2017-10-03 03:20] VITALS: BP 115/49
[2017-10-03] MEDS: HEPARIN PF for SUB-Q USE 5,000 UNIT/0.5 ML VIAL. SQ SCH ×3 (06:01→21:46)
[2017-10-03 06:32] LABS: CALCIUM 8.1 mg/dL (8.5-10.1); CREATININE 5.7 mg/dL (0.6-1.0); POTASSIUM 3.8 mmol/L (3.5-5.1)
[2017-10-03 06:59] LABS: BASO % 1 % (0-3); EOS % 2 % (0-3); HEMATOCRIT 31.6 % (36.0-47.0); HEMOGLOBIN 10.2 g/dL (12.0-15.5); LYMPH % 21 % (24-48); MEAN CORPUSCULAR HEMOGLOBIN 32 pg (25-35); MEAN CORPUSCULAR HGB CONC 32 g/dL (31-37); MEAN CORPUSCULAR VOLUME 99 fL (79-100); MONO % 15 % (0-9); NEUT % 61 % (31-73); PLATELET COUNT 107 x10^3/uL (140-400); RED BLOOD COUNT 3.19 x10^6/uL (3.50-5.40); RED CELL DISTRIBUTION WIDTH 14.4 % (11.5-14.5); WHITE BLOOD COUNT 4.9 x10^3/uL (4.0-11.0)
[2017-10-03] MEDS: IPRATRPIUM/ALBUTEROL 0.5/2.5MG 3 ML NEBU. NEB SCH ×4 (07:15→21:18)
[2017-10-03 07:20] VITALS: BP 120/63
[2017-10-03] MEDS: INSULIN ASPART 300 UNITS/3 ML INSULN.PEN SQ SCH ×4 (07:30→21:00)
[2017-10-03] MEDS: POLYVINYL ALCOHOL 1.4% OPHTH SOLUTION 15ML BOTTLE. OU SCH ×4 (08:37→21:31)
[2017-10-03] MEDS: PANTOPRAZOLE 40 MG TABLET.DR. PO SCH (08:38)
[2017-10-03] MEDS: CALCIUM ACETATE 667 MG CAPSULE PO SCH ×3 (08:38→18:01)
[2017-10-03] MEDS: CINACALCET HCL 30 MG TABLET PO SCH (08:38)
[2017-10-03] MEDS: CITALOPRAM 10 MG TABLET. PO SCH (08:38)
[2017-10-03] MEDS: ALLOPURINOL 100 MG TABLET. PO SCH (08:38)
[2017-10-03] MEDS: LACTOBACILLUS RHAMNOSUS GG 1 CAPSULE. PO SCH ×2 (08:38→21:30)
[2017-10-03] MEDS: METOCLOPRAMIDE ORAL SOLN 10 MG/10 ML SOLUTION. PO SCH ×4 (08:38→21:30)
[2017-10-03] MEDS: CLOPIDOGREL BISULFATE 75 MG TABLET PO SCH (08:38)
--- NOTE | 2017-10-03 09:57 | PDOC ---
Infectious Disease Note Subjective Subjective Feeling alright Comfortable, denies pain 4L O2. Denies SOA/CP/cough BP stable, off Levophed ROS ROS GEN: Denies fevers, chills, sweats GI: Denies n/v/d Vital Sign Vital Signs Vital Signs Date Time Temp Pulse Resp B/P (MAP) Pulse Ox O2 Delivery O2 Flow Rate FiO2 10/03/17 08:00 Nasal Cannula 4.0 10/03/17 07:20 98.3 67 20 120/63 (82) 99 98.3 Physical Exam PHYSICAL EXAM GENERAL: Propped up in bed, smiling HEENT: OC/OP dry LUNGS: Clear HEART: S1 and S2 ABD: Obese, soft, NT, BS active EXT: No edema, no cyanosis; RUE AV fistula HEARING CONSULTANT: Alert, oriented x 3 SKIN: No rash [facility]. (09/30). clean Labs Lab Laboratory Tests Test 10/02/17 11:29 10/02/17 17:24 10/02/17 21:33 10/03/17 05:40 Glucose (Fingerstick) 199 mg/dL (70-99) 138 mg/dL (70-99) 144 mg/dL (70-99) White Blood Count 4.9 x10^3/uL (4.0-11.0) Red Blood Count 3.19 x10^6/uL (3.50-5.40) Hemoglobin 10.2 g/dL (12.0-15.5) Hematocrit 31.6 % (36.0-47.0) Mean Corpuscular Volume 99 fL (79-100) Mean Corpuscular Hemoglobin 32 pg (25-35) Mean Corpuscular Hemoglobin Concent 32 g/dL (31-37) Red Cell Distribution Width 14.4 % (11.5-14.5) Platelet Count 107 x10^3/uL (140-400) Neutrophils (%) (Auto) 61 % (31-73) Lymphocytes (%) (Auto) 21 % (24-48) Monocytes (%) (Auto) 15 % (0-9) Eosinophils (%) (Auto) 2 % (0-3) Basophils (%) (Auto) 1 % (0-3) Neutrophils # (Auto) 3.0 x10^3uL (1.8-7.7) Lymphocytes # (Auto) 1.0 x10^3/uL (1.0-4.8) Monocytes # (Auto) 0.7 x10^3/uL (0.0-1.1) Eosinophils # (Auto) 0.1 x10^3/uL (0.0-0.7) Basophils # (Auto) 0.0 x10^3/uL (0.0-0.2) Sodium Level 135 mmol/L (136-145) Potassium Level 3.8 mmol/L (3.5-5.1) Chloride Level 98 mmol/L (98-107) Carbon Dioxide Level 30 mmol/L (21-32) Anion Gap 7 (6-14) Blood Urea Nitrogen 36 mg/dL (7-20) Creatinine 5.7 mg/dL (0.6-1.0) Estimated GFR (Cockcroft-Gault) 9.0 Glucose Level 156 mg/dL (70-99) Calcium Level 8.1 mg/dL (8.5-10.1) Test 10/03/17 07:24 Glucose (Fingerstick) 149 mg/dL (70-99) Micro BLOOD CULTURE Preliminary NO GROWTH AFTER 3 DAYS Objective Assessment Acute respiratory failure with hypoxia and hypercapnia Hypotensive, improved, off Levophed Pulmonary infiltrate. CKD/HD Hypoglycemia.resolved Diabetes mellitus. A1C 5.8 Hypertension. Morbid obesity. Anemia. Gastroesophageal reflux disease Old cerebrovascular accident. Hypothyroidism. h/o seizures Plan Plan of Care Vanc, wean soon vanc trough 17.8 Probiotics Supportive care PT/OT Attending Co-Sign The patient was seen and interviewed as well as examined at the bedside. The chart was reviewed. The case was discussed. Agree with the plan of care. ERIBERTO DAVILA APRN Oct 03, 2017 09:57 TRE HARRIS MD Oct 03, 2017 14:19
--- NOTE | 2017-10-03 10:24 | PDOC ---
IM PROGRESS NOTES- Subjective Subjective No c/o pain,dyspnea,dizziness.Tolerating diet. Objective Objective alert appropriate Vitals Vital Signs Date Time Temp Pulse Resp B/P (MAP) Pulse Ox O2 Delivery O2 Flow Rate FiO2 10/03/17 08:00 Nasal Cannula 4.0 10/03/17 07:20 98.3 67 20 120/63 (82) 99 98.3 Physical Exam Physical Exam General appearance - alert,ill appearing, and in no distress Mental Status - alert, oriented to person, place, and time, affect appropriate to mood Head - normal Chest - clear to auscultation, no wheezes, rales or rhonchi, decreased bases Heart - S1 and S2 normal Abdomen - soft, nontender, nondistended,obese, BS + Neurological - no acute focal neurological deficits Musculoskeletal - no muscular tenderness noted Extremities - tr pedal edema Skin - warm and dry Labs Laboratory Tests Test 10/01/17 12:16 10/01/17 17:27 10/01/17 22:39 10/02/17 06:00 Glucose (Fingerstick) 121 mg/dL (70-99) 198 mg/dL (70-99) 178 mg/dL (70-99) White Blood Count 5.5 x10^3/uL (4.0-11.0) Red Blood Count 3.29 x10^6/uL (3.50-5.40) Hemoglobin 10.5 g/dL (12.0-15.5) Hematocrit 32.5 % (36.0-47.0) Mean Corpuscular Volume 99 fL (79-100) Mean Corpuscular Hemoglobin 32 pg (25-35) Mean Corpuscular Hemoglobin Concent 33 g/dL (31-37) Red Cell Distribution Width 14.2 % (11.5-14.5) Platelet Count 111 x10^3/uL (140-400) Neutrophils (%) (Auto) 65 % (31-73) Lymphocytes (%) (Auto) 20 % (24-48) Monocytes (%) (Auto) 11 % (0-9) Eosinophils (%) (Auto) 2 % (0-3) Basophils (%) (Auto) 1 % (0-3) Neutrophils # (Auto) 3.6 x10^3uL (1.8-7.7) Lymphocytes # (Auto) 1.1 x10^3/uL (1.0-4.8) Monocytes # (Auto) 0.6 x10^3/uL (0.0-1.1) Eosinophils # (Auto) 0.1 x10^3/uL (0.0-0.7) Basophils # (Auto) 0.1 x10^3/uL (0.0-0.2) Sodium Level 134 mmol/L (136-145) Potassium Level 3.5 mmol/L (3.5-5.1) Chloride Level 97 mmol/L (98-107) Carbon Dioxide Level 29 mmol/L (21-32) Anion Gap 8 (6-14) Blood Urea Nitrogen 25 mg/dL (7-20) Creatinine 4.1 mg/dL (0.6-1.0) Estimated GFR (Cockcroft-Gault) 13.2 Glucose Level 143 mg/dL (70-99) Calcium Level 8.0 mg/dL (8.5-10.1) Test 10/02/17 11:29 10/02/17 17:24 10/02/17 21:33 10/03/17 05:40 Glucose (Fingerstick) 199 mg/dL (70-99) 138 mg/dL (70-99) 144 mg/dL (70-99) White Blood Count 4.9 x10^3/uL (4.0-11.0) Red Blood Count 3.19 x10^6/uL (3.50-5.40) Hemoglobin 10.2 g/dL (12.0-15.5) Hematocrit 31.6 % (36.0-47.0) Mean Corpuscular Volume 99 fL (79-100) Mean Corpuscular Hemoglobin 32 pg (25-35) Mean Corpuscular Hemoglobin Concent 32 g/dL (31-37) Red Cell Distribution Width 14.4 % (11.5-14.5) Platelet Count 107 x10^3/uL (140-400) Neutrophils (%) (Auto) 61 % (31-73) Lymphocytes (%) (Auto) 21 % (24-48) Monocytes (%) (Auto) 15 % (0-9) Eosinophils (%) (Auto) 2 % (0-3) Basophils (%) (Auto) 1 % (0-3) Neutrophils # (Auto) 3.0 x10^3uL (1.8-7.7) Lymphocytes # (Auto) 1.0 x10^3/uL (1.0-4.8) Monocytes # (Auto) 0.7 x10^3/uL (0.0-1.1) Eosinophils # (Auto) 0.1 x10^3/uL (0.0-0.7) Basophils # (Auto) 0.0 x10^3/uL (0.0-0.2) Sodium Level 135 mmol/L (136-145) Potassium Level 3.8 mmol/L (3.5-5.1) Chloride Level 98 mmol/L (98-107) Carbon Dioxide Level 30 mmol/L (21-32) Anion Gap 7 (6-14) Blood Urea Nitrogen 36 mg/dL (7-20) Creatinine 5.7 mg/dL (0.6-1.0) Estimated GFR (Cockcroft-Gault) 9.0 Glucose Level 156 mg/dL (70-99) Calcium Level 8.1 mg/dL (8.5-10.1) Test 10/03/17 07:24 Glucose (Fingerstick) 149 mg/dL (70-99) Laboratory Tests Test 10/02/17 11:29 10/02/17 17:24 10/02/17 21:33 10/03/17 05:40 Glucose (Fingerstick) 199 mg/dL (70-99) 138 mg/dL (70-99) 144 mg/dL (70-99) White Blood Count 4.9 x10^3/uL (4.0-11.0) Red Blood Count 3.19 x10^6/uL (3.50-5.40) Hemoglobin 10.2 g/dL (12.0-15.5) Hematocrit 31.6 % (36.0-47.0) Mean Corpuscular Volume 99 fL (79-100) Mean Corpuscular Hemoglobin 32 pg (25-35) Mean Corpuscular Hemoglobin Concent 32 g/dL (31-37) Red Cell Distribution Width 14.4 % (11.5-14.5) Platelet Count 107 x10^3/uL (140-400) Neutrophils (%) (Auto) 61 % (31-73) Lymphocytes (%) (Auto) 21 % (24-48) Monocytes (%) (Auto) 15 % (0-9) Eosinophils (%) (Auto) 2 % (0-3) Basophils (%) (Auto) 1 % (0-3) Neutrophils # (Auto) 3.0 x10^3uL (1.8-7.7) Lymphocytes # (Auto) 1.0 x10^3/uL (1.0-4.8) Monocytes # (Auto) 0.7 x10^3/uL (0.0-1.1) Eosinophils # (Auto) 0.1 x10^3/uL (0.0-0.7) Basophils # (Auto) 0.0 x10^3/uL (0.0-0.2) Sodium Level 135 mmol/L (136-145) Potassium Level 3.8 mmol/L (3.5-5.1) Chloride Level 98 mmol/L (98-107) Carbon Dioxide Level 30 mmol/L (21-32) Anion Gap 7 (6-14) Blood Urea Nitrogen 36 mg/dL (7-20) Creatinine 5.7 mg/dL (0.6-1.0) Estimated GFR (Cockcroft-Gault) 9.0 Glucose Level 156 mg/dL (70-99) Calcium Level 8.1 mg/dL (8.5-10.1) Test 10/03/17 07:24 Glucose (Fingerstick) 149 mg/dL (70-99) Meds Current Medications Artificial Tears (Artificial Tears) 1 drop QID OU Last administered on 08:37; Start 10/02/17 at 13:00 Metoclopramide HCl (Reglan Oral Solution) 5 mg TIDACHC PO Last administered on 10/03/17 08:38; Start 10/02/17 at 11:30 Metoclopramide HCl (Reglan) 5 mg Q6HRS IV ; Start 10/02/17 at 12:00; Stop 10/08 at 12:00; Status DC Vancomycin HCl 750 mg/Dextrose 250 ml @ 250 mls/hr QMWF IV ; Start 10/04/17 at 16:00 Assessment Assessment FINAL IMPRESSION: 1. Metabolic encephalopathy. 2. Hyperacute respiratory failure secondary to hypercapnic respiratory failure. 3. Hypoglycemia. 4. Diabetes, insulin-dependent. 5. End-stage renal disease, on dialysis. 6. Suspect pneumonia, left lung, suspect gram negative and gram positive. 7. Old cerebrovascular accident. 8. Hypertension. 9. Hyperlipidemia. 10. Seizures. 11. Morbid obesity. PLAN: 10/02/17 respiratory failure - Bipap at hs prn - NC otherwise - slowly improving. diastolic HF - dialysis in patient - ECHO EF 55-60% bibasilar infiltrates - remains on Vanco - nebulizer - mucinex DM II - BS 121-198 - oral diet - FSBS change to ac/hs hypotension - better. nutrition - diet advancing ESRD - HD inpatient Has dry eyes- use artificial tears. Off Levophed. For more details regarding further plans, please refer to the orders. RENAL FAILURE: ESRD MIRIAM RODRIGUEZ MD Oct 03, 2017 10:23
[2017-10-03 10:45] VITALS: BP 106/48
[2017-10-03 14:30] VITALS: BP 103/46
--- NOTE | 2017-10-03 17:11 | PDOC ---
PULMONARY PROGRESS NOTES Subjective PT MUCH BETTER LESS SOA NO CHEST PAIN OFF PRESSORS AND BIPAP Vitals Vital Signs Date Time Temp Pulse Resp B/P (MAP) Pulse Ox O2 Delivery O2 Flow Rate FiO2 10/03/17 15:19 Nasal Cannula 4.0 10/03/17 14:30 98.3 71 20 103/46 (65) 97 98.3 ROS: No Nausea, No Chest Pain, No Abdominal Pain, No Increase Cough General: Alert Lungs: Crackles Cardiovascular: S1, S2 Abdomen: Soft, Other (OBESE) Neuro Exam: Alert Extremities: No Edema Skin: Warm Labs Laboratory Tests Test 10/01/17 17:27 10/01/17 22:39 10/02/17 06:00 10/02/17 11:29 Glucose (Fingerstick) 198 mg/dL (70-99) 178 mg/dL (70-99) 199 mg/dL (70-99) White Blood Count 5.5 x10^3/uL (4.0-11.0) Red Blood Count 3.29 x10^6/uL (3.50-5.40) Hemoglobin 10.5 g/dL (12.0-15.5) Hematocrit 32.5 % (36.0-47.0) Mean Corpuscular Volume 99 fL (79-100) Mean Corpuscular Hemoglobin 32 pg (25-35) Mean Corpuscular Hemoglobin Concent 33 g/dL (31-37) Red Cell Distribution Width 14.2 % (11.5-14.5) Platelet Count 111 x10^3/uL (140-400) Neutrophils (%) (Auto) 65 % (31-73) Lymphocytes (%) (Auto) 20 % (24-48) Monocytes (%) (Auto) 11 % (0-9) Eosinophils (%) (Auto) 2 % (0-3) Basophils (%) (Auto) 1 % (0-3) Neutrophils # (Auto) 3.6 x10^3uL (1.8-7.7) Lymphocytes # (Auto) 1.1 x10^3/uL (1.0-4.8) Monocytes # (Auto) 0.6 x10^3/uL (0.0-1.1) Eosinophils # (Auto) 0.1 x10^3/uL (0.0-0.7) Basophils # (Auto) 0.1 x10^3/uL (0.0-0.2) Sodium Level 134 mmol/L (136-145) Potassium Level 3.5 mmol/L (3.5-5.1) Chloride Level 97 mmol/L (98-107) Carbon Dioxide Level 29 mmol/L (21-32) Anion Gap 8 (6-14) Blood Urea Nitrogen 25 mg/dL (7-20) Creatinine 4.1 mg/dL (0.6-1.0) Estimated GFR (Cockcroft-Gault) 13.2 Glucose Level 143 mg/dL (70-99) Calcium Level 8.0 mg/dL (8.5-10.1) Test 10/02/17 17:24 10/02/17 21:33 10/03/17 05:40 10/03/17 07:24 Glucose (Fingerstick) 138 mg/dL (70-99) 144 mg/dL (70-99) 149 mg/dL (70-99) White Blood Count 4.9 x10^3/uL (4.0-11.0) Red Blood Count 3.19 x10^6/uL (3.50-5.40) Hemoglobin 10.2 g/dL (12.0-15.5) Hematocrit 31.6 % (36.0-47.0) Mean Corpuscular Volume 99 fL (79-100) Mean Corpuscular Hemoglobin 32 pg (25-35) Mean Corpuscular Hemoglobin Concent 32 g/dL (31-37) Red Cell Distribution Width 14.4 % (11.5-14.5) Platelet Count 107 x10^3/uL (140-400) Neutrophils (%) (Auto) 61 % (31-73) Lymphocytes (%) (Auto) 21 % (24-48) Monocytes (%) (Auto) 15 % (0-9) Eosinophils (%) (Auto) 2 % (0-3) Basophils (%) (Auto) 1 % (0-3) Neutrophils # (Auto) 3.0 x10^3uL (1.8-7.7) Lymphocytes # (Auto) 1.0 x10^3/uL (1.0-4.8) Monocytes # (Auto) 0.7 x10^3/uL (0.0-1.1) Eosinophils # (Auto) 0.1 x10^3/uL (0.0-0.7) Basophils # (Auto) 0.0 x10^3/uL (0.0-0.2) Sodium Level 135 mmol/L (136-145) Potassium Level 3.8 mmol/L (3.5-5.1) Chloride Level 98 mmol/L (98-107) Carbon Dioxide Level 30 mmol/L (21-32) Anion Gap 7 (6-14) Blood Urea Nitrogen 36 mg/dL (7-20) Creatinine 5.7 mg/dL (0.6-1.0) Estimated GFR (Cockcroft-Gault) 9.0 Glucose Level 156 mg/dL (70-99) Calcium Level 8.1 mg/dL (8.5-10.1) Test 10/03/17 11:43 Glucose (Fingerstick) 172 mg/dL (70-99) Laboratory Tests Test 10/02/17 17:24 10/02/17 21:33 10/03/17 05:40 10/03/17 07:24 Glucose (Fingerstick) 138 mg/dL (70-99) 144 mg/dL (70-99) 149 mg/dL (70-99) White Blood Count 4.9 x10^3/uL (4.0-11.0) Red Blood Count 3.19 x10^6/uL (3.50-5.40) Hemoglobin 10.2 g/dL (12.0-15.5) Hematocrit 31.6 % (36.0-47.0) Mean Corpuscular Volume 99 fL (79-100) Mean Corpuscular Hemoglobin 32 pg (25-35) Mean Corpuscular Hemoglobin Concent 32 g/dL (31-37) Red Cell Distribution Width 14.4 % (11.5-14.5) Platelet Count 107 x10^3/uL (140-400) Neutrophils (%) (Auto) 61 % (31-73) Lymphocytes (%) (Auto) 21 % (24-48) Monocytes (%) (Auto) 15 % (0-9) Eosinophils (%) (Auto) 2 % (0-3) Basophils (%) (Auto) 1 % (0-3) Neutrophils # (Auto) 3.0 x10^3uL (1.8-7.7) Lymphocytes # (Auto) 1.0 x10^3/uL (1.0-4.8) Monocytes # (Auto) 0.7 x10^3/uL (0.0-1.1) Eosinophils # (Auto) 0.1 x10^3/uL (0.0-0.7) Basophils # (Auto) 0.0 x10^3/uL (0.0-0.2) Sodium Level 135 mmol/L (136-145) Potassium Level 3.8 mmol/L (3.5-5.1) Chloride Level 98 mmol/L (98-107) Carbon Dioxide Level 30 mmol/L (21-32) Anion Gap 7 (6-14) Blood Urea Nitrogen 36 mg/dL (7-20) Creatinine 5.7 mg/dL (0.6-1.0) Estimated GFR (Cockcroft-Gault) 9.0 Glucose Level 156 mg/dL (70-99) Calcium Level 8.1 mg/dL (8.5-10.1) Test 10/03/17 11:43 Glucose (Fingerstick) 172 mg/dL (70-99) Medications Active Scripts Medications Dose Route/Sig Max Daily Dose Days Date Category [phoslo] 2,001 Mg PO TID 01/16/17 Reported Movantik (Naloxegol Oxalate) 25 Mg Tablet 25 Mg PO DAILY 01/16/17 Reported Xopenex Hfa (Levalbuterol Tartrate) 15 Gm Hfa.aer.ad 2 Puff IH QID 01/16/17 Reported Levemir Flextouch (Insulin Detemir) 300 Units/3 Ml Insuln.pen 30 Units SQ QHS 07/20/15 Rx Novolog Flexpen (Insulin Aspart) 300 Units/3 Ml Insuln.pen 15 Units SQ TIDAC 07/20/15 Rx Keppra (Levetiracetam) 500 Mg Tablet 1 Tab PO BID 07/20/15 Reported Vol-Care Rx Tablet (Vit B Cmplx 3/Fa/Vit C/Biotin) 1 Each Tablet 1 Each PO DAILY 07/20/15 Reported Clopidogrel (Clopidogrel Bisulfate) 75 Mg Tablet 1 Tab PO DAILY 07/20/15 Reported Alprazolam 0.25 Mg Tablet 1 Tab PO PRN BID PRN 07/20/15 Reported Celexa (Citalopram Hydrobromide) 10 Mg Tablet 1 Tab PO DAILY 07/20/15 Reported Allopurinol 100 Mg Tablet 1 Tab PO DAILY 07/20/15 Reported Sensipar (Cinacalcet Hcl) 30 Mg Tablet 1 Tab PO DAILY 07/20/15 Reported Simvastatin 40 Mg Tablet 1 Tab PO QHS 07/20/15 Reported Gabapentin 300 Mg Capsule 1 Cap PO HS 07/20/15 Reported Senna (Sennosides) 8.6 Mg Capsule 8.6 Mg PO BID 07/20/15 Reported Cyclobenzaprine Hcl 10 Mg Tablet 1 Tab PO BID 07/20/15 Reported Reglan (Metoclopramide Hcl) 10 Mg Tablet 5 Mg PO QIDACHS 07/20/15 Reported Clonidine Hcl 0.1 Mg Tablet 1 Tab PO TID 07/20/15 Reported Hydrocodone-Apap 5-325 (Hydrocodone Bit/Acetaminophen) 1 Each Tablet 1 Tab PO PRN Q6HRS PRN 07/20/15 Reported Impression . IMPRESSION: 1. Acute on chronic hypercapnic hypoxemic respiratory failure. 2. Morbid obesity. 3. End-stage renal disease, missing hemodialysis. 4. Abnormal x-ray, suspect mostly atelectasis, possibly pneumonia, gram negative. 5. Type 2 diabetes. 6. Seizure. 7. Right cerebrovascular accident with left hemiparesis. Plan . TRANSFERRED OUT OF ICU ANITBX PER ID IS 1. We will continue at bedtime BiPAP and p.r.n. 2. Empiric antibiotics. 3. FOLLOW CARD INPUT 4. antibx 5. Nutrtion support 6. May need a sleep stucy as outpt 7. GI/DVT proph WARNER MOSER MD Oct 03, 2017 17:11
[2017-10-03 19:35] VITALS: BP 93/52
[2017-10-03] MEDS: SIMVASTATIN 40 MG TABLET. PO SCH (21:30)
[2017-10-03 23:05] VITALS: BP 102/47
[2017-10-04 03:30] VITALS: BP 121/52
[2017-10-04] MEDS: HEPARIN PF for SUB-Q USE 5,000 UNIT/0.5 ML VIAL. SQ SCH ×3 (06:10→21:58)
[2017-10-04 06:34] LABS: BASO # 0.1 x10^3/uL (0.0-0.2); BASO % 1 % (0-3); EOS % 3 % (0-3); HEMATOCRIT 33.5 % (36.0-47.0); HEMOGLOBIN 10.5 g/dL (12.0-15.5); LYMPH # 1.5 x10^3/uL (1.0-4.8); LYMPH % 26 % (24-48); MEAN CORPUSCULAR HEMOGLOBIN 32 pg (25-35); MEAN CORPUSCULAR HGB CONC 31 g/dL (31-37); MEAN CORPUSCULAR VOLUME 101 fL (79-100); MONO % 11 % (0-9); NEUT % 59 % (31-73); PLATELET COUNT 122 x10^3/uL (140-400); RED BLOOD COUNT 3.32 x10^6/uL (3.50-5.40); RED CELL DISTRIBUTION WIDTH 14.4 % (11.5-14.5); WHITE BLOOD COUNT 5.9 x10^3/uL (4.0-11.0)
[2017-10-04 06:45] LABS: CALCIUM 8.2 mg/dL (8.5-10.1); GFR 7.1
[2017-10-04] MEDS: INSULIN ASPART 300 UNITS/3 ML INSULN.PEN SQ SCH ×4 (07:30→21:00)
[2017-10-04 07:40] VITALS: BP 107/41
[2017-10-04] MEDS: IPRATRPIUM/ALBUTEROL 0.5/2.5MG 3 ML NEBU. NEB SCH ×4 (08:11→20:43)
[2017-10-04] MEDS: METOCLOPRAMIDE ORAL SOLN 10 MG/10 ML SOLUTION. PO SCH ×4 (08:39→21:44)
[2017-10-04] MEDS: CINACALCET HCL 30 MG TABLET PO SCH (08:40)
[2017-10-04] MEDS: ALLOPURINOL 100 MG TABLET. PO SCH (08:40)
[2017-10-04] MEDS: PANTOPRAZOLE 40 MG TABLET.DR. PO SCH (08:40)
[2017-10-04] MEDS: CLOPIDOGREL BISULFATE 75 MG TABLET PO SCH (08:40)
[2017-10-04] MEDS: LACTOBACILLUS RHAMNOSUS GG 1 CAPSULE. PO SCH ×2 (08:40→21:43)
[2017-10-04] MEDS: CALCIUM ACETATE 667 MG CAPSULE PO SCH ×3 (08:40→18:03)
[2017-10-04] MEDS: CITALOPRAM 10 MG TABLET. PO SCH (08:40)
[2017-10-04] MEDS: levETIRAcetam 500 MG TABLET PO SCH ×2 (08:40→21:44)
[2017-10-04] MEDS: POLYVINYL ALCOHOL 1.4% OPHTH SOLUTION 15ML BOTTLE. OU SCH ×4 (08:52→21:44)
--- NOTE | 2017-10-04 08:56 | PDOC ---
Infectious Disease Note Subjective Subjective Feeling alright Comfortable, denies pain Hungry - awaiting HD 4L O2. Denies SOA/CP/cough ROS ROS GEN: Denies fevers, chills, sweats HEENT: Denies blurred vision, sore throat CV: Denies chest pain RESP: Denies shortness of air, cough GI: Denies n/v/d NEURO: Denies confusion, dizziness MSK: Denies weakness, joint pain/swelling Vital Sign Vital Signs Vital Signs Date Time Temp Pulse Resp B/P (MAP) Pulse Ox O2 Delivery O2 Flow Rate FiO2 10/04/17 08:16 99 Nasal Cannula 4.0 10/04/17 07:40 98.2 66 18 107/41 (63) 98.2 Physical Exam PHYSICAL EXAM GENERAL: Propped up in bed, smiling HEENT: PERRL, some dry crusting on the left; normal conjunctivae. OC/OP pink NECK: Supple LUNGS: Clear HEART: S1 and S2 ABD: Obese, soft, NT, BS active EXT: No edema, no cyanosis; RUE AV fistula [employer] EDUCATION: Alert, oriented x 3, no focal neurologic deficit SKIN: No rash J. (09/30). clean Labs Lab Laboratory Tests Test 10/03/17 11:43 10/03/17 17:55 10/03/17 20:52 10/04/17 06:00 Glucose (Fingerstick) 172 mg/dL (70-99) 189 mg/dL (70-99) 123 mg/dL (70-99) White Blood Count 5.9 x10^3/uL (4.0-11.0) Red Blood Count 3.32 x10^6/uL (3.50-5.40) Hemoglobin 10.5 g/dL (12.0-15.5) Hematocrit 33.5 % (36.0-47.0) Mean Corpuscular Volume 101 fL (79-100) Mean Corpuscular Hemoglobin 32 pg (25-35) Mean Corpuscular Hemoglobin Concent 31 g/dL (31-37) Red Cell Distribution Width 14.4 % (11.5-14.5) Platelet Count 122 x10^3/uL (140-400) Neutrophils (%) (Auto) 59 % (31-73) Lymphocytes (%) (Auto) 26 % (24-48) Monocytes (%) (Auto) 11 % (0-9) Eosinophils (%) (Auto) 3 % (0-3) Basophils (%) (Auto) 1 % (0-3) Neutrophils # (Auto) 3.5 x10^3uL (1.8-7.7) Lymphocytes # (Auto) 1.5 x10^3/uL (1.0-4.8) Monocytes # (Auto) 0.7 x10^3/uL (0.0-1.1) Eosinophils # (Auto) 0.2 x10^3/uL (0.0-0.7) Basophils # (Auto) 0.1 x10^3/uL (0.0-0.2) Sodium Level 138 mmol/L (136-145) Potassium Level 4.0 mmol/L (3.5-5.1) Chloride Level 100 mmol/L (98-107) Carbon Dioxide Level 30 mmol/L (21-32) Anion Gap 8 (6-14) Blood Urea Nitrogen 46 mg/dL (7-20) Creatinine 7.0 mg/dL (0.6-1.0) Estimated GFR (Cockcroft-Gault) 7.1 Glucose Level 138 mg/dL (70-99) Calcium Level 8.2 mg/dL (8.5-10.1) Test 10/04/17 07:41 Glucose (Fingerstick) 134 mg/dL (70-99) Objective Assessment Acute respiratory failure with hypoxia and hypercapnia - resolved Hypotensive, improved, Pulmonary infiltrate. CKD/HD Hypoglycemia.resolved Diabetes mellitus. A1C 5.8 Hypertension. Morbid obesity. Anemia. Gastroesophageal reflux disease Old cerebrovascular accident. Hypothyroidism. h/o seizures Plan Plan of Care Cont off abx Probiotics Supportive care PT/OT KATALINA SALCEDO MD Oct 04, 2017 08:56
--- NOTE | 2017-10-04 10:10 | PDOC ---
PROGRESS NOTES Subjective Subjective seen in dialysis unit, smiling and wide awake ,answering questions correctly Objective Objective Vital Signs Date Time Temp Pulse Resp B/P (MAP) Pulse Ox O2 Delivery O2 Flow Rate FiO2 10/04/17 08:16 99 Nasal Cannula 4.0 10/04/17 07:40 98.2 66 18 107/41 (63) 98.2 Physical Exam Abdomen: Normal bowel sounds, Soft, No tenderness, No hepatosplenomegaly, No masses Heart: Regular rate, Normal S1, Normal S2, No murmurs, Gallops Extremities: No clubbing, No cyanosis, No edema, Normal pulses, No tenderness/ swelling General: Alert, Oriented X3, Cooperative, No acute distress HEENT: Atraumatic, Mucous membr. moist/pink Lungs: Clear to auscultation, Normal air movement MUSCULOSKELETAL: Osteoarthritic changes both hands Neuro: Normal speech, Sensation intact Psych/Mental Status: Mental status NL, Mood NL Skin: No significant lesion Diagnosis Problem List Problems Medical Problems: (1) Respiratory failure Status: Acute RENAL FAILURE: ESRD Assessment Assessment FINAL IMPRESSION: 1. Metabolic encephalopathy resolved. 2. Acute hypercapnic respiratory failure resolved. 3. Hypoglycemia resolved. 4. Diabetes, insulin-dependent. 5. End-stage renal disease, on dialysis. 6. NO pneumonia, d/c antibiotics 7. Old cerebrovascular accident. 8. Hypertension. 9. Hyperlipidemia. 10. H/O Seizures. 11. Morbid obesity. PLAN: Dialysis today, clinically improving respiratory failure - Bipap at hs prn - NC otherwise - slowly improving. diastolic HF - dialysis in patient - ECHO EF 55-60% bibasilar infiltrates - improving ,off antibiotics DM II - BS 121-198 - oral diet - FSBS change to /hs hypotension - off pressors nutrition - tolerating diet ESRD - HD inpatient m,w,f spoke with renal ?home tomorrow Problems: Plan Plan of Care Problems Medical Problems: (1) Respiratory failure Status: Acute Comment Review of Relevant I have reviewed the following items gabbi (where applicable) has been applied. Labs Laboratory Tests Test 10/03/17 11:43 10/03/17 17:55 10/03/17 20:52 10/04/17 06:00 Glucose (Fingerstick) 172 mg/dL (70-99) 189 mg/dL (70-99) 123 mg/dL (70-99) White Blood Count 5.9 x10^3/uL (4.0-11.0) Red Blood Count 3.32 x10^6/uL (3.50-5.40) Hemoglobin 10.5 g/dL (12.0-15.5) Hematocrit 33.5 % (36.0-47.0) Mean Corpuscular Volume 101 fL (79-100) Mean Corpuscular Hemoglobin 32 pg (25-35) Mean Corpuscular Hemoglobin Concent 31 g/dL (31-37) Red Cell Distribution Width 14.4 % (11.5-14.5) Platelet Count 122 x10^3/uL (140-400) Neutrophils (%) (Auto) 59 % (31-73) Lymphocytes (%) (Auto) 26 % (24-48) Monocytes (%) (Auto) 11 % (0-9) Eosinophils (%) (Auto) 3 % (0-3) Basophils (%) (Auto) 1 % (0-3) Neutrophils # (Auto) 3.5 x10^3uL (1.8-7.7) Lymphocytes # (Auto) 1.5 x10^3/uL (1.0-4.8) Monocytes # (Auto) 0.7 x10^3/uL (0.0-1.1) Eosinophils # (Auto) 0.2 x10^3/uL (0.0-0.7) Basophils # (Auto) 0.1 x10^3/uL (0.0-0.2) Sodium Level 138 mmol/L (136-145) Potassium Level 4.0 mmol/L (3.5-5.1) Chloride Level 100 mmol/L (98-107) Carbon Dioxide Level 30 mmol/L (21-32) Anion Gap 8 (6-14) Blood Urea Nitrogen 46 mg/dL (7-20) Creatinine 7.0 mg/dL (0.6-1.0) Estimated GFR (Cockcroft-Gault) 7.1 Glucose Level 138 mg/dL (70-99) Calcium Level 8.2 mg/dL (8.5-10.1) Test 10/04/17 07:41 Glucose (Fingerstick) 134 mg/dL (70-99) Microbiology 09/29/17 Blood Culture - Preliminary, Resulted NO GROWTH AFTER 4 DAYS Medications Current Medications Levetiracetam (Keppra) 500 mg BID PO Last administered on 10/04/17t 08:40; Start 10/04/17 at 09:00 Vancomycin HCl 750 mg/Dextrose 250 ml @ 250 mls/hr QMWF IV ; Start 10/04/17 at 16:00; Stop 10/04/17 at 16:00; Status DC Vitals/I & O Vital Sign - Last 24 Hours 10/03/17 10/03/17 10/03/17 10/03/17 10:45 11:03 14:30 15:19 Temp 98.1 98.3 98.1 98.3 Pulse 71 71 Resp 20 20 B/P (MAP) 106/48 (67) 103/46 (65) Pulse Ox 97 97 O2 Delivery Nasal Cannula Nasal Cannula Nasal Cannula Nasal Cannula O2 Flow Rate 4.0 4.0 4.0 4.0 10/03/17 10/03/17 10/03/17 10/03/17 19:35 20:00 21:18 23:05 Temp 98.2 98.0 98.2 98.0 Pulse 72 72 Resp 20 20 B/P (MAP) 93/52 (66) 102/47 (65) Pulse Ox 99 99 O2 Delivery Nasal Cannula Nasal Cannula Nasal Cannula Nasal Cannula O2 Flow Rate 4.0 4.0 4.0 4.0 10/04/17 10/04/17 10/04/17 03:30 07:40 08:16 Temp 98.1 98.2 98.1 98.2 Pulse 68 66 Resp 18 18 B/P (MAP) 121/52 (75) 107/41 (63) Pulse Ox 100 98 99 O2 Delivery Nasal Cannula Nasal Cannula Nasal Cannula O2 Flow Rate 4.0 4.0 4.0 CARMITA WALL MD Oct 04, 2017 10:10
[2017-10-04] MEDS ORDERED: IV NORMAL SALINE 1000ML BAG 1,000 ML IV PRN ×2 (10:33)
[2017-10-04] MEDS ORDERED: DIALYSIS PATIENT. MC PRN ×2 (10:45)
--- NOTE | 2017-10-04 11:40 | PDOC ---
Renal-Progress Notes Subjective Notes Notes FEELS BETTER History of Present Illness Hx of present illness STABLE Vitals Vitals Vital Signs Date Time Temp Pulse Resp B/P (MAP) Pulse Ox O2 Delivery O2 Flow Rate FiO2 10/04/17 08:20 Nasal Cannula 4.0 10/04/17 08:16 99 10/04/17 07:40 98.2 66 18 107/41 (63) 98.2 Weight Weight [ ] I.O. Intake and Output Intake and Output 10/04/17 07:00 Intake Total 1350 ml Balance 1350 ml Intake Oral 1350 ml # Bowel Movements 1 Labs Labs Laboratory Tests Test 10/03/17 11:43 10/03/17 17:55 10/03/17 20:52 10/04/17 06:00 Glucose (Fingerstick) 172 mg/dL (70-99) 189 mg/dL (70-99) 123 mg/dL (70-99) White Blood Count 5.9 x10^3/uL (4.0-11.0) Red Blood Count 3.32 x10^6/uL (3.50-5.40) Hemoglobin 10.5 g/dL (12.0-15.5) Hematocrit 33.5 % (36.0-47.0) Mean Corpuscular Volume 101 fL (79-100) Mean Corpuscular Hemoglobin 32 pg (25-35) Mean Corpuscular Hemoglobin Concent 31 g/dL (31-37) Red Cell Distribution Width 14.4 % (11.5-14.5) Platelet Count 122 x10^3/uL (140-400) Neutrophils (%) (Auto) 59 % (31-73) Lymphocytes (%) (Auto) 26 % (24-48) Monocytes (%) (Auto) 11 % (0-9) Eosinophils (%) (Auto) 3 % (0-3) Basophils (%) (Auto) 1 % (0-3) Neutrophils # (Auto) 3.5 x10^3uL (1.8-7.7) Lymphocytes # (Auto) 1.5 x10^3/uL (1.0-4.8) Monocytes # (Auto) 0.7 x10^3/uL (0.0-1.1) Eosinophils # (Auto) 0.2 x10^3/uL (0.0-0.7) Basophils # (Auto) 0.1 x10^3/uL (0.0-0.2) Sodium Level 138 mmol/L (136-145) Potassium Level 4.0 mmol/L (3.5-5.1) Chloride Level 100 mmol/L (98-107) Carbon Dioxide Level 30 mmol/L (21-32) Anion Gap 8 (6-14) Blood Urea Nitrogen 46 mg/dL (7-20) Creatinine 7.0 mg/dL (0.6-1.0) Estimated GFR (Cockcroft-Gault) 7.1 Glucose Level 138 mg/dL (70-99) Calcium Level 8.2 mg/dL (8.5-10.1) Test 10/04/17 07:41 Glucose (Fingerstick) 134 mg/dL (70-99) Micro Micro Microbiology 09/29/17 Blood Culture - Preliminary, Resulted NO GROWTH AFTER 4 DAYS Review of Systems Constitutional: yes: weakness, alert, oriented Eyes: Yes: no symptom reported Pulmonary: Yes no symptom reported Cardiovascular: Yes no symptom reported Gastrointestional: Yes: no symptom reported Musculoskeletal: Yes: no symptom reported Psychiatric/Neurological: Yes: no symptom reported Endocrine: Yes: no symptom reported Hematologic/Lymphatic: Yes: no symptom reported Physical Exam General Appearance: no apparent distress Skin: warm Respiratory: decreased breath sounds Heart: S1S2, RRR Abdomen: soft, bowel sounds present Genitourinary: bladder flat Extremities: pulses present, no edema, atrophy Neurology: alert, oriented, follow commands Musculoskeletal: Other Assessment Assessment IMP ESRD HYPERVOLEMIA ANEMIA DM II HTN ACUTE HYPOXIC AND HYPERCARBIC RESP FAILURE MORBID OBESITY PLAN HD TODAY UF TO DW MEJIA CANTU MD Oct 04, 2017 11:40
--- NOTE | 2017-10-04 12:47 | PDOC ---
PULMONARY PROGRESS NOTES Subjective PT MUCH BETTER NO CHEST PAIN Vitals Vital Signs Date Time Temp Pulse Resp B/P (MAP) Pulse Ox O2 Delivery O2 Flow Rate FiO2 10/04/17 08:20 Nasal Cannula 4.0 10/04/17 08:16 99 10/04/17 07:40 98.2 66 18 107/41 (63) 98.2 ROS: No Nausea, No Chest Pain, No Abdominal Pain, No Increase Cough General: Alert, No acute distress Lungs: Other (decrease bs) Cardiovascular: S1, S2 Abdomen: Soft, Other (OBESE) Neuro Exam: Alert Extremities: No Edema Skin: Warm Labs Laboratory Tests Test 10/02/17 17:24 10/02/17 21:33 10/03/17 05:40 10/03/17 07:24 Glucose (Fingerstick) 138 mg/dL (70-99) 144 mg/dL (70-99) 149 mg/dL (70-99) White Blood Count 4.9 x10^3/uL (4.0-11.0) Red Blood Count 3.19 x10^6/uL (3.50-5.40) Hemoglobin 10.2 g/dL (12.0-15.5) Hematocrit 31.6 % (36.0-47.0) Mean Corpuscular Volume 99 fL (79-100) Mean Corpuscular Hemoglobin 32 pg (25-35) Mean Corpuscular Hemoglobin Concent 32 g/dL (31-37) Red Cell Distribution Width 14.4 % (11.5-14.5) Platelet Count 107 x10^3/uL (140-400) Neutrophils (%) (Auto) 61 % (31-73) Lymphocytes (%) (Auto) 21 % (24-48) Monocytes (%) (Auto) 15 % (0-9) Eosinophils (%) (Auto) 2 % (0-3) Basophils (%) (Auto) 1 % (0-3) Neutrophils # (Auto) 3.0 x10^3uL (1.8-7.7) Lymphocytes # (Auto) 1.0 x10^3/uL (1.0-4.8) Monocytes # (Auto) 0.7 x10^3/uL (0.0-1.1) Eosinophils # (Auto) 0.1 x10^3/uL (0.0-0.7) Basophils # (Auto) 0.0 x10^3/uL (0.0-0.2) Sodium Level 135 mmol/L (136-145) Potassium Level 3.8 mmol/L (3.5-5.1) Chloride Level 98 mmol/L (98-107) Carbon Dioxide Level 30 mmol/L (21-32) Anion Gap 7 (6-14) Blood Urea Nitrogen 36 mg/dL (7-20) Creatinine 5.7 mg/dL (0.6-1.0) Estimated GFR (Cockcroft-Gault) 9.0 Glucose Level 156 mg/dL (70-99) Calcium Level 8.1 mg/dL (8.5-10.1) Test 10/03/17 11:43 10/03/17 17:55 10/03/17 20:52 10/04/17 06:00 Glucose (Fingerstick) 172 mg/dL (70-99) 189 mg/dL (70-99) 123 mg/dL (70-99) White Blood Count 5.9 x10^3/uL (4.0-11.0) Red Blood Count 3.32 x10^6/uL (3.50-5.40) Hemoglobin 10.5 g/dL (12.0-15.5) Hematocrit 33.5 % (36.0-47.0) Mean Corpuscular Volume 101 fL (79-100) Mean Corpuscular Hemoglobin 32 pg (25-35) Mean Corpuscular Hemoglobin Concent 31 g/dL (31-37) Red Cell Distribution Width 14.4 % (11.5-14.5) Platelet Count 122 x10^3/uL (140-400) Neutrophils (%) (Auto) 59 % (31-73) Lymphocytes (%) (Auto) 26 % (24-48) Monocytes (%) (Auto) 11 % (0-9) Eosinophils (%) (Auto) 3 % (0-3) Basophils (%) (Auto) 1 % (0-3) Neutrophils # (Auto) 3.5 x10^3uL (1.8-7.7) Lymphocytes # (Auto) 1.5 x10^3/uL (1.0-4.8) Monocytes # (Auto) 0.7 x10^3/uL (0.0-1.1) Eosinophils # (Auto) 0.2 x10^3/uL (0.0-0.7) Basophils # (Auto) 0.1 x10^3/uL (0.0-0.2) Sodium Level 138 mmol/L (136-145) Potassium Level 4.0 mmol/L (3.5-5.1) Chloride Level 100 mmol/L (98-107) Carbon Dioxide Level 30 mmol/L (21-32) Anion Gap 8 (6-14) Blood Urea Nitrogen 46 mg/dL (7-20) Creatinine 7.0 mg/dL (0.6-1.0) Estimated GFR (Cockcroft-Gault) 7.1 Glucose Level 138 mg/dL (70-99) Calcium Level 8.2 mg/dL (8.5-10.1) Test 10/04/17 07:41 Glucose (Fingerstick) 134 mg/dL (70-99) Laboratory Tests Test 10/03/17 17:55 10/03/17 20:52 10/04/17 06:00 10/04/17 07:41 Glucose (Fingerstick) 189 mg/dL (70-99) 123 mg/dL (70-99) 134 mg/dL (70-99) White Blood Count 5.9 x10^3/uL (4.0-11.0) Red Blood Count 3.32 x10^6/uL (3.50-5.40) Hemoglobin 10.5 g/dL (12.0-15.5) Hematocrit 33.5 % (36.0-47.0) Mean Corpuscular Volume 101 fL (79-100) Mean Corpuscular Hemoglobin 32 pg (25-35) Mean Corpuscular Hemoglobin Concent 31 g/dL (31-37) Red Cell Distribution Width 14.4 % (11.5-14.5) Platelet Count 122 x10^3/uL (140-400) Neutrophils (%) (Auto) 59 % (31-73) Lymphocytes (%) (Auto) 26 % (24-48) Monocytes (%) (Auto) 11 % (0-9) Eosinophils (%) (Auto) 3 % (0-3) Basophils (%) (Auto) 1 % (0-3) Neutrophils # (Auto) 3.5 x10^3uL (1.8-7.7) Lymphocytes # (Auto) 1.5 x10^3/uL (1.0-4.8) Monocytes # (Auto) 0.7 x10^3/uL (0.0-1.1) Eosinophils # (Auto) 0.2 x10^3/uL (0.0-0.7) Basophils # (Auto) 0.1 x10^3/uL (0.0-0.2) Sodium Level 138 mmol/L (136-145) Potassium Level 4.0 mmol/L (3.5-5.1) Chloride Level 100 mmol/L (98-107) Carbon Dioxide Level 30 mmol/L (21-32) Anion Gap 8 (6-14) Blood Urea Nitrogen 46 mg/dL (7-20) Creatinine 7.0 mg/dL (0.6-1.0) Estimated GFR (Cockcroft-Gault) 7.1 Glucose Level 138 mg/dL (70-99) Calcium Level 8.2 mg/dL (8.5-10.1) Medications Active Scripts Medications Dose Route/Sig Max Daily Dose Days Date Category [phoslo] 2,001 Mg PO TID 01/16/17 Reported Movantik (Naloxegol Oxalate) 25 Mg Tablet 25 Mg PO DAILY 01/16/17 Reported Xopenex Hfa (Levalbuterol Tartrate) 15 Gm Hfa.aer.ad 2 Puff IH QID 01/16/17 Reported Levemir Flextouch (Insulin Detemir) 300 Units/3 Ml Insuln.pen 30 Units SQ QHS 07/20/15 Rx Novolog Flexpen (Insulin Aspart) 300 Units/3 Ml Insuln.pen 15 Units SQ TIDAC 07/20/15 Rx Keppra (Levetiracetam) 500 Mg Tablet 1 Tab PO BID 07/20/15 Reported Vol-Care Rx Tablet (Vit B Cmplx 3/Fa/Vit C/Biotin) 1 Each Tablet 1 Each PO DAILY 07/20/15 Reported Clopidogrel (Clopidogrel Bisulfate) 75 Mg Tablet 1 Tab PO DAILY 07/20/15 Reported Alprazolam 0.25 Mg Tablet 1 Tab PO PRN BID PRN 07/20/15 Reported Celexa (Citalopram Hydrobromide) 10 Mg Tablet 1 Tab PO DAILY 07/20/15 Reported Allopurinol 100 Mg Tablet 1 Tab PO DAILY 07/20/15 Reported Sensipar (Cinacalcet Hcl) 30 Mg Tablet 1 Tab PO DAILY 07/20/15 Reported Simvastatin 40 Mg Tablet 1 Tab PO QHS 07/20/15 Reported Gabapentin 300 Mg Capsule 1 Cap PO HS 07/20/15 Reported Senna (Sennosides) 8.6 Mg Capsule 8.6 Mg PO BID 07/20/15 Reported Cyclobenzaprine Hcl 10 Mg Tablet 1 Tab PO BID 07/20/15 Reported Reglan (Metoclopramide Hcl) 10 Mg Tablet 5 Mg PO QIDACHS 07/20/15 Reported Clonidine Hcl 0.1 Mg Tablet 1 Tab PO TID 07/20/15 Reported Hydrocodone-Apap 5-325 (Hydrocodone Bit/Acetaminophen) 1 Each Tablet 1 Tab PO PRN Q6HRS PRN 07/20/15 Reported Impression . 1. Acute on chronic hypercapnic hypoxemic respiratory failure. 2. Morbid obesity. 3. End-stage renal disease, missing hemodialysis. 4. Abnormal x-ray, suspect mostly atelectasis, possibly pneumonia, gram negative. 5. Type 2 diabetes. 6. Seizure. 7. Right cerebrovascular accident with left hemiparesis. Plan . 1. We will continue BiPAP p.r.n. 2. Empiric antibiotics. 3. FOLLOW CARD INPUT 4. antibx 5. Nutrtion support 6. May need a sleep study as outpt 7. GI/DVT proph JUAN C YAÑEZ MD Oct 04, 2017 12:47
[2017-10-04 14:45] VITALS: BP 94/40
[2017-10-04] MEDS ORDERED: VANCOMYCIN 750 MG in IV DEXTROSE 5% 250 ML IV SCH (16:00)
[2017-10-04 19:30] VITALS: BP 104/62
[2017-10-04] MEDS: SIMVASTATIN 40 MG TABLET. PO SCH (21:43)
[2017-10-04] MEDS: ACETAMINOPHEN 325 MG TABLET. PO PRN (21:45)
[2017-10-04 22:25] VITALS: BP 119/49
[2017-10-05 03:10] VITALS: BP 103/46
[2017-10-05] MEDS: HEPARIN PF for SUB-Q USE 5,000 UNIT/0.5 ML VIAL. SQ SCH ×2 (05:11→14:00)
[2017-10-05 05:20] LABS: BASO % 1 % (0-3); EOS % 3 % (0-3); HEMATOCRIT 33.5 % (36.0-47.0); HEMOGLOBIN 10.5 g/dL (12.0-15.5); LYMPH # 1.4 x10^3/uL (1.0-4.8); LYMPH % 25 % (24-48); MEAN CORPUSCULAR HEMOGLOBIN 32 pg (25-35); MEAN CORPUSCULAR HGB CONC 32 g/dL (31-37); MEAN CORPUSCULAR VOLUME 101 fL (79-100); MONO % 10 % (0-9); NEUT % 62 % (31-73); PLATELET COUNT 117 x10^3/uL (140-400); RED BLOOD COUNT 3.34 x10^6/uL (3.50-5.40); RED CELL DISTRIBUTION WIDTH 14.2 % (11.5-14.5); WHITE BLOOD COUNT 5.6 x10^3/uL (4.0-11.0)
[2017-10-05 05:55] LABS: CALCIUM 8.3 mg/dL (8.5-10.1); CREATININE 4.4 mg/dL (0.6-1.0); GFR 12.1; POTASSIUM 3.7 mmol/L (3.5-5.1)
[2017-10-05 07:00] VITALS: BP_SYST 100; BP_SYST 110; BP_DIAS 34; BP_DIAS 35
[2017-10-05] MEDS: INSULIN ASPART 300 UNITS/3 ML INSULN.PEN SQ SCH ×3 (07:30→16:30)
[2017-10-05] MEDS: IPRATRPIUM/ALBUTEROL 0.5/2.5MG 3 ML NEBU. NEB SCH (08:06)
--- NOTE | 2017-10-05 08:25 | PDOC ---
Infectious Disease Note Subjective Subjective Feeling alright Comfortable, denies pain Hungry Denies SOA/CP/cough ROS ROS GEN: Denies fevers, chills, sweats HEENT: Denies blurred vision, sore throat CV: Denies chest pain RESP: Denies shortness of air, cough GI: Denies n/v/d NEURO: Denies confusion, dizziness MSK: Denies weakness, joint pain/swelling Vital Sign Vital Signs Vital Signs Date Time Temp Pulse Resp B/P (MAP) Pulse Ox O2 Delivery O2 Flow Rate FiO2 10/05/17 08:06 Nasal Cannula 2.0 10/05/17 07:00 98.5 78 19 100/35 (56) 98 98.5 Physical Exam PHYSICAL EXAM GENERAL: Propped up in bed, smiling HEENT: PERRL, normal conjunctivae. OC/OP pink NECK: Supple LUNGS: Clear HEART: S1 and S2 ABD: Obese, soft, NT, BS active EXT: No edema, no cyanosis; RUE AV fistula TUCKPOINTER: Alert, oriented x 3, no focal neurologic deficit SKIN: No rash [facility]. (09/30). clean Labs Lab Laboratory Tests Test 10/04/17 17:01 10/04/17 20:49 10/05/17 05:00 Glucose (Fingerstick) 158 mg/dL (70-99) 149 mg/dL (70-99) White Blood Count 5.6 x10^3/uL (4.0-11.0) Red Blood Count 3.34 x10^6/uL (3.50-5.40) Hemoglobin 10.5 g/dL (12.0-15.5) Hematocrit 33.5 % (36.0-47.0) Mean Corpuscular Volume 101 fL (79-100) Mean Corpuscular Hemoglobin 32 pg (25-35) Mean Corpuscular Hemoglobin Concent 32 g/dL (31-37) Red Cell Distribution Width 14.2 % (11.5-14.5) Platelet Count 117 x10^3/uL (140-400) Neutrophils (%) (Auto) 62 % (31-73) Lymphocytes (%) (Auto) 25 % (24-48) Monocytes (%) (Auto) 10 % (0-9) Eosinophils (%) (Auto) 3 % (0-3) Basophils (%) (Auto) 1 % (0-3) Neutrophils # (Auto) 3.5 x10^3uL (1.8-7.7) Lymphocytes # (Auto) 1.4 x10^3/uL (1.0-4.8) Monocytes # (Auto) 0.6 x10^3/uL (0.0-1.1) Eosinophils # (Auto) 0.1 x10^3/uL (0.0-0.7) Basophils # (Auto) 0.0 x10^3/uL (0.0-0.2) Sodium Level 137 mmol/L (136-145) Potassium Level 3.7 mmol/L (3.5-5.1) Chloride Level 99 mmol/L (98-107) Carbon Dioxide Level 32 mmol/L (21-32) Anion Gap 6 (6-14) Blood Urea Nitrogen 28 mg/dL (7-20) Creatinine 4.4 mg/dL (0.6-1.0) Estimated GFR (Cockcroft-Gault) 12.1 Glucose Level 128 mg/dL (70-99) Calcium Level 8.3 mg/dL (8.5-10.1) Objective Assessment Acute respiratory failure with hypoxia and hypercapnia - resolved Hypotensive, improved, Pulmonary infiltrate. CKD/HD Hypoglycemia.resolved Diabetes mellitus. A1C 5.8 Hypertension. Morbid obesity. Anemia. Gastroesophageal reflux disease Old cerebrovascular accident. Hypothyroidism. h/o seizures Plan Plan of Care Cont off abx Probiotics ID to sign off KATALINA SALCEDO MD Oct 05, 2017 08:25
[2017-10-05] MEDS: PANTOPRAZOLE 40 MG TABLET.DR. PO SCH (09:14)
[2017-10-05] MEDS: CINACALCET HCL 30 MG TABLET PO SCH (09:15)
[2017-10-05] MEDS: LACTOBACILLUS RHAMNOSUS GG 1 CAPSULE. PO SCH (09:15)
[2017-10-05] MEDS: CITALOPRAM 10 MG TABLET. PO SCH (09:15)
[2017-10-05] MEDS: levETIRAcetam 500 MG TABLET PO SCH (09:15)
[2017-10-05] MEDS: CLOPIDOGREL BISULFATE 75 MG TABLET PO SCH (09:15)
[2017-10-05] MEDS: ALLOPURINOL 100 MG TABLET. PO SCH (09:15)
[2017-10-05] MEDS: CALCIUM ACETATE 667 MG CAPSULE PO SCH ×3 (09:15→17:00)
[2017-10-05] MEDS: METOCLOPRAMIDE ORAL SOLN 10 MG/10 ML SOLUTION. PO SCH ×3 (09:15→16:30)
[2017-10-05] MEDS: POLYVINYL ALCOHOL 1.4% OPHTH SOLUTION 15ML BOTTLE. OU SCH ×3 (09:16→17:00)
--- NOTE | 2017-10-05 09:33 | PDOC ---
PROGRESS NOTES Subjective Subjective feels good,ready to go home Objective Objective Vital Signs Date Time Temp Pulse Resp B/P (MAP) Pulse Ox O2 Delivery O2 Flow Rate FiO2 10/05/17 08:06 Nasal Cannula 2.0 10/05/17 07:00 98.5 78 19 100/35 (56) 98 98.5 Intake and Output 10/05/17 06:59 Intake Total 390 ml Balance 390 ml Intake Oral 390 ml Physical Exam Abdomen: Normal bowel sounds, Soft, No tenderness, No hepatosplenomegaly, No masses Heart: Regular rate, Normal S1, Normal S2, No murmurs, Gallops Extremities: No clubbing, No cyanosis, No edema, Normal pulses, No tenderness/ swelling General: Alert, Oriented X3, Cooperative, No acute distress HEENT: Atraumatic, Mucous membr. moist/pink Lungs: Clear to auscultation, Normal air movement MUSCULOSKELETAL: Osteoarthritic changes both hands Neuro: Normal speech, Sensation intact Psych/Mental Status: Mental status NL, Mood NL Skin: No significant lesion Diagnosis Problem List Problems Medical Problems: (1) Respiratory failure Status: Acute RENAL FAILURE: ESRD Assessment Assessment FINAL IMPRESSION: 1. Metabolic encephalopathy resolved. 2. Acute hypercapnic respiratory failure resolved. 3. Hypoglycemia resolved. 4. Diabetes, insulin-dependent. 5. End-stage renal disease, on dialysis. 6. NO pneumonia, d/c antibiotics 7. Old cerebrovascular accident. 8. Hypertension. 9. Hyperlipidemia. 10. H/O Seizures. 11. Morbid obesity. PLAN:d/c home today. only sliding scale insulin for home use, bs 100 to 150 range Dialysis yesterday, respiratory failure - Bipap at hs prn - NC otherwise - slowly improving. diastolic HF - dialysis in patient - ECHO EF 55-60% bibasilar infiltrates - improving ,off antibiotics DM II - BS 121-198 - oral diet - FSBS change to ac/hs hypotension - off pressors nutrition - tolerating diet ESRD - HD inpatient m,w,f Problems: Plan Plan of Care Problems Medical Problems: (1) Respiratory failure Status: Acute Comment Review of Relevant I have reviewed the following items gabbi (where applicable) has been applied. Labs Laboratory Tests Test 10/04/17 17:01 10/04/17 20:49 10/05/17 05:00 Glucose (Fingerstick) 158 mg/dL (70-99) 149 mg/dL (70-99) White Blood Count 5.6 x10^3/uL (4.0-11.0) Red Blood Count 3.34 x10^6/uL (3.50-5.40) Hemoglobin 10.5 g/dL (12.0-15.5) Hematocrit 33.5 % (36.0-47.0) Mean Corpuscular Volume 101 fL (79-100) Mean Corpuscular Hemoglobin 32 pg (25-35) Mean Corpuscular Hemoglobin Concent 32 g/dL (31-37) Red Cell Distribution Width 14.2 % (11.5-14.5) Platelet Count 117 x10^3/uL (140-400) Neutrophils (%) (Auto) 62 % (31-73) Lymphocytes (%) (Auto) 25 % (24-48) Monocytes (%) (Auto) 10 % (0-9) Eosinophils (%) (Auto) 3 % (0-3) Basophils (%) (Auto) 1 % (0-3) Neutrophils # (Auto) 3.5 x10^3uL (1.8-7.7) Lymphocytes # (Auto) 1.4 x10^3/uL (1.0-4.8) Monocytes # (Auto) 0.6 x10^3/uL (0.0-1.1) Eosinophils # (Auto) 0.1 x10^3/uL (0.0-0.7) Basophils # (Auto) 0.0 x10^3/uL (0.0-0.2) Sodium Level 137 mmol/L (136-145) Potassium Level 3.7 mmol/L (3.5-5.1) Chloride Level 99 mmol/L (98-107) Carbon Dioxide Level 32 mmol/L (21-32) Anion Gap 6 (6-14) Blood Urea Nitrogen 28 mg/dL (7-20) Creatinine 4.4 mg/dL (0.6-1.0) Estimated GFR (Cockcroft-Gault) 12.1 Glucose Level 128 mg/dL (70-99) Calcium Level 8.3 mg/dL (8.5-10.1) Microbiology 09/29/17 Blood Culture - Final, Complete NO GROWTH AFTER 5 DAYS Medications Current Medications Info (PHARMACY MONITORING -- do not chart) 1 each PRN DAILY PRN MC SEE COMMENTS ; Start 10/04/17 at 10:45; Status UNV Info (PHARMACY MONITORING -- do not chart) 1 each PRN DAILY PRN MC SEE COMMENTS ; Start 10/04/17 at 10:45; Status UNV Sodium Chloride 1,000 ml @ 400 mls/hr Q2H30M PRN IV PATENCY; Start 10/04/17 at 10:33; Stop 10/04/17 at 22:32; Status DC Sodium Chloride 1,000 ml @ 1,000 mls/hr Q1H PRN IV hypotension; Start at 10:33; Stop 10/04/17 at 16:32; Status DC Vancomycin HCl 750 mg/Dextrose 250 ml @ 250 mls/hr QMWF IV ; Start 10/04/17 at 16:00; Stop 10/04/17 at 16:00; Status DC Vitals/I & O Vital Sign - Last 24 Hours 10/04/17 10/04/17 10/04/17 10/04/17 14:45 17:03 19:30 20:43 Temp 98.4 98.5 98.4 98.5 Pulse 73 72 Resp 18 20 B/P (MAP) 94/40 (58) 104/62 (76) Pulse Ox 99 96 95 O2 Delivery Nasal Cannula Nasal Cannula Nasal Cannula Nasal Cannula O2 Flow Rate 4.0 4.0 4.0 2.0 10/04/17 10/04/17 10/05/17 10/05/17 20:47 22:25 03:10 07:00 Temp 98.4 98.3 98.4 98.3 Pulse 82 70 Resp 20 20 B/P (MAP) 119/49 (72) 103/46 (65) 110/34 (59) Pulse Ox 94 98 O2 Delivery Nasal Cannula Nasal Cannula Nasal Cannula O2 Flow Rate 4.0 4.0 4.0 10/05/17 10/05/17 07:00 08:06 Temp 98.5 98.5 Pulse 78 Resp 19 B/P (MAP) 100/35 (56) Pulse Ox 98 O2 Delivery Nasal Cannula Nasal Cannula O2 Flow Rate 2.0 2.0 Intake and Output 10/04/17 10/04/17 10/05/17 14:59 22:59 06:59 Intake Total 150 ml 120 ml 120 ml Balance 150 ml 120 ml 120 ml KODURI,VINAYA K MD Oct 05, 2017 09:33
--- NOTE | 2017-10-05 09:36 | PDOC ---
PULMONARY PROGRESS NOTES Subjective PT MUCH BETTER NO CHEST PAIN Vitals Vital Signs Date Time Temp Pulse Resp B/P (MAP) Pulse Ox O2 Delivery O2 Flow Rate FiO2 10/05/17 08:06 Nasal Cannula 2.0 10/05/17 07:00 98.5 78 19 100/35 (56) 98 98.5 ROS: No Nausea, No Chest Pain, No Abdominal Pain, No Increase Cough General: Alert, No acute distress Lungs: Other (decrease bs) Cardiovascular: S1, S2 Abdomen: Soft, Other (OBESE) Neuro Exam: Alert Extremities: No Edema Skin: Warm Labs Laboratory Tests Test 10/03/17 11:43 10/03/17 17:55 10/03/17 20:52 10/04/17 06:00 Glucose (Fingerstick) 172 mg/dL (70-99) 189 mg/dL (70-99) 123 mg/dL (70-99) White Blood Count 5.9 x10^3/uL (4.0-11.0) Red Blood Count 3.32 x10^6/uL (3.50-5.40) Hemoglobin 10.5 g/dL (12.0-15.5) Hematocrit 33.5 % (36.0-47.0) Mean Corpuscular Volume 101 fL (79-100) Mean Corpuscular Hemoglobin 32 pg (25-35) Mean Corpuscular Hemoglobin Concent 31 g/dL (31-37) Red Cell Distribution Width 14.4 % (11.5-14.5) Platelet Count 122 x10^3/uL (140-400) Neutrophils (%) (Auto) 59 % (31-73) Lymphocytes (%) (Auto) 26 % (24-48) Monocytes (%) (Auto) 11 % (0-9) Eosinophils (%) (Auto) 3 % (0-3) Basophils (%) (Auto) 1 % (0-3) Neutrophils # (Auto) 3.5 x10^3uL (1.8-7.7) Lymphocytes # (Auto) 1.5 x10^3/uL (1.0-4.8) Monocytes # (Auto) 0.7 x10^3/uL (0.0-1.1) Eosinophils # (Auto) 0.2 x10^3/uL (0.0-0.7) Basophils # (Auto) 0.1 x10^3/uL (0.0-0.2) Sodium Level 138 mmol/L (136-145) Potassium Level 4.0 mmol/L (3.5-5.1) Chloride Level 100 mmol/L (98-107) Carbon Dioxide Level 30 mmol/L (21-32) Anion Gap 8 (6-14) Blood Urea Nitrogen 46 mg/dL (7-20) Creatinine 7.0 mg/dL (0.6-1.0) Estimated GFR (Cockcroft-Gault) 7.1 Glucose Level 138 mg/dL (70-99) Calcium Level 8.2 mg/dL (8.5-10.1) Test 10/04/17 07:41 10/04/17 17:01 10/04/17 20:49 10/05/17 05:00 Glucose (Fingerstick) 134 mg/dL (70-99) 158 mg/dL (70-99) 149 mg/dL (70-99) White Blood Count 5.6 x10^3/uL (4.0-11.0) Red Blood Count 3.34 x10^6/uL (3.50-5.40) Hemoglobin 10.5 g/dL (12.0-15.5) Hematocrit 33.5 % (36.0-47.0) Mean Corpuscular Volume 101 fL (79-100) Mean Corpuscular Hemoglobin 32 pg (25-35) Mean Corpuscular Hemoglobin Concent 32 g/dL (31-37) Red Cell Distribution Width 14.2 % (11.5-14.5) Platelet Count 117 x10^3/uL (140-400) Neutrophils (%) (Auto) 62 % (31-73) Lymphocytes (%) (Auto) 25 % (24-48) Monocytes (%) (Auto) 10 % (0-9) Eosinophils (%) (Auto) 3 % (0-3) Basophils (%) (Auto) 1 % (0-3) Neutrophils # (Auto) 3.5 x10^3uL (1.8-7.7) Lymphocytes # (Auto) 1.4 x10^3/uL (1.0-4.8) Monocytes # (Auto) 0.6 x10^3/uL (0.0-1.1) Eosinophils # (Auto) 0.1 x10^3/uL (0.0-0.7) Basophils # (Auto) 0.0 x10^3/uL (0.0-0.2) Sodium Level 137 mmol/L (136-145) Potassium Level 3.7 mmol/L (3.5-5.1) Chloride Level 99 mmol/L (98-107) Carbon Dioxide Level 32 mmol/L (21-32) Anion Gap 6 (6-14) Blood Urea Nitrogen 28 mg/dL (7-20) Creatinine 4.4 mg/dL (0.6-1.0) Estimated GFR (Cockcroft-Gault) 12.1 Glucose Level 128 mg/dL (70-99) Calcium Level 8.3 mg/dL (8.5-10.1) Laboratory Tests Test 10/04/17 17:01 10/04/17 20:49 10/05/17 05:00 Glucose (Fingerstick) 158 mg/dL (70-99) 149 mg/dL (70-99) White Blood Count 5.6 x10^3/uL (4.0-11.0) Red Blood Count 3.34 x10^6/uL (3.50-5.40) Hemoglobin 10.5 g/dL (12.0-15.5) Hematocrit 33.5 % (36.0-47.0) Mean Corpuscular Volume 101 fL (79-100) Mean Corpuscular Hemoglobin 32 pg (25-35) Mean Corpuscular Hemoglobin Concent 32 g/dL (31-37) Red Cell Distribution Width 14.2 % (11.5-14.5) Platelet Count 117 x10^3/uL (140-400) Neutrophils (%) (Auto) 62 % (31-73) Lymphocytes (%) (Auto) 25 % (24-48) Monocytes (%) (Auto) 10 % (0-9) Eosinophils (%) (Auto) 3 % (0-3) Basophils (%) (Auto) 1 % (0-3) Neutrophils # (Auto) 3.5 x10^3uL (1.8-7.7) Lymphocytes # (Auto) 1.4 x10^3/uL (1.0-4.8) Monocytes # (Auto) 0.6 x10^3/uL (0.0-1.1) Eosinophils # (Auto) 0.1 x10^3/uL (0.0-0.7) Basophils # (Auto) 0.0 x10^3/uL (0.0-0.2) Sodium Level 137 mmol/L (136-145) Potassium Level 3.7 mmol/L (3.5-5.1) Chloride Level 99 mmol/L (98-107) Carbon Dioxide Level 32 mmol/L (21-32) Anion Gap 6 (6-14) Blood Urea Nitrogen 28 mg/dL (7-20) Creatinine 4.4 mg/dL (0.6-1.0) Estimated GFR (Cockcroft-Gault) 12.1 Glucose Level 128 mg/dL (70-99) Calcium Level 8.3 mg/dL (8.5-10.1) Medications Active Scripts Medications Dose Route/Sig Max Daily Dose Days Date Category [phoslo] 2,001 Mg PO TID 01/16/17 Reported Movantik (Naloxegol Oxalate) 25 Mg Tablet 25 Mg PO DAILY 01/16/17 Reported Xopenex Hfa (Levalbuterol Tartrate) 15 Gm Hfa.aer.ad 2 Puff IH QID 01/16/17 Reported Levemir Flextouch (Insulin Detemir) 300 Units/3 Ml Insuln.pen 30 Units SQ QHS 07/20/15 Rx Novolog Flexpen (Insulin Aspart) 300 Units/3 Ml Insuln.pen 15 Units SQ TIDAC 07/20/15 Rx Keppra (Levetiracetam) 500 Mg Tablet 1 Tab PO BID 07/20/15 Reported Vol-Care Rx Tablet (Vit B Cmplx 3/Fa/Vit C/Biotin) 1 Each Tablet 1 Each PO DAILY 07/20/15 Reported Clopidogrel (Clopidogrel Bisulfate) 75 Mg Tablet 1 Tab PO DAILY 07/20/15 Reported Alprazolam 0.25 Mg Tablet 1 Tab PO PRN BID PRN 07/20/15 Reported Celexa (Citalopram Hydrobromide) 10 Mg Tablet 1 Tab PO DAILY 07/20/15 Reported Allopurinol 100 Mg Tablet 1 Tab PO DAILY 07/20/15 Reported Sensipar (Cinacalcet Hcl) 30 Mg Tablet 1 Tab PO DAILY 07/20/15 Reported Simvastatin 40 Mg Tablet 1 Tab PO QHS 07/20/15 Reported Gabapentin 300 Mg Capsule 1 Cap PO HS 07/20/15 Reported Senna (Sennosides) 8.6 Mg Capsule 8.6 Mg PO BID 07/20/15 Reported Cyclobenzaprine Hcl 10 Mg Tablet 1 Tab PO BID 07/20/15 Reported Reglan (Metoclopramide Hcl) 10 Mg Tablet 5 Mg PO QIDACHS 07/20/15 Reported Clonidine Hcl 0.1 Mg Tablet 1 Tab PO TID 07/20/15 Reported Hydrocodone-Apap 5-325 (Hydrocodone Bit/Acetaminophen) 1 Each Tablet 1 Tab PO PRN Q6HRS PRN 07/20/15 Reported Impression . 1. Acute on chronic hypercapnic hypoxemic respiratory failure. 2. Morbid obesity. 3. End-stage renal disease, missing hemodialysis. 4. Abnormal x-ray, suspect mostly atelectasis, possibly pneumonia, gram negative. 5. Type 2 diabetes. 6. Seizure. 7. Right cerebrovascular accident with left hemiparesis. Plan . 1. We will continue BiPAP p.r.n. 2. Empiric antibiotics. 3. FOLLOW CARD INPUT 4. antibx 5. Nutrtion support 6. May need a sleep study as outpt 7. GI/DVT proph OK WITH HOME JUAN C YAÑEZ MD Oct 05, 2017 09:36
--- NOTE | 2017-10-05 09:59 | PDOC ---
Provider Note Provider Note Discharge summary dictated. #[id number] CARMITA WALL MD Oct 05, 2017 09:59
[2017-10-05 11:00] VITALS: BP 104/34
--- NOTE | 2017-10-05 11:24 | PDOC ---
Renal-Progress Notes Subjective Notes Notes FEELS WELL History of Present Illness Hx of present illness STABLE Vitals Vitals Vital Signs Date Time Temp Pulse Resp B/P (MAP) Pulse Ox O2 Delivery O2 Flow Rate FiO2 10/05/17 08:06 Nasal Cannula 2.0 10/05/17 07:00 98.5 78 19 100/35 (56) 98 98.5 Weight Weight [ ] I.O. Intake and Output Intake and Output 10/05/17 07:00 Intake Total 390 ml Balance 390 ml Intake Oral 390 ml Labs Labs Laboratory Tests Test 10/04/17 17:01 10/04/17 20:49 10/05/17 05:00 Glucose (Fingerstick) 158 mg/dL (70-99) 149 mg/dL (70-99) White Blood Count 5.6 x10^3/uL (4.0-11.0) Red Blood Count 3.34 x10^6/uL (3.50-5.40) Hemoglobin 10.5 g/dL (12.0-15.5) Hematocrit 33.5 % (36.0-47.0) Mean Corpuscular Volume 101 fL (79-100) Mean Corpuscular Hemoglobin 32 pg (25-35) Mean Corpuscular Hemoglobin Concent 32 g/dL (31-37) Red Cell Distribution Width 14.2 % (11.5-14.5) Platelet Count 117 x10^3/uL (140-400) Neutrophils (%) (Auto) 62 % (31-73) Lymphocytes (%) (Auto) 25 % (24-48) Monocytes (%) (Auto) 10 % (0-9) Eosinophils (%) (Auto) 3 % (0-3) Basophils (%) (Auto) 1 % (0-3) Neutrophils # (Auto) 3.5 x10^3uL (1.8-7.7) Lymphocytes # (Auto) 1.4 x10^3/uL (1.0-4.8) Monocytes # (Auto) 0.6 x10^3/uL (0.0-1.1) Eosinophils # (Auto) 0.1 x10^3/uL (0.0-0.7) Basophils # (Auto) 0.0 x10^3/uL (0.0-0.2) Sodium Level 137 mmol/L (136-145) Potassium Level 3.7 mmol/L (3.5-5.1) Chloride Level 99 mmol/L (98-107) Carbon Dioxide Level 32 mmol/L (21-32) Anion Gap 6 (6-14) Blood Urea Nitrogen 28 mg/dL (7-20) Creatinine 4.4 mg/dL (0.6-1.0) Estimated GFR (Cockcroft-Gault) 12.1 Glucose Level 128 mg/dL (70-99) Calcium Level 8.3 mg/dL (8.5-10.1) Micro Micro Microbiology 09/29/17 Blood Culture - Final, Complete NO GROWTH AFTER 5 DAYS Review of Systems Constitutional: yes: weakness, alert, oriented Eyes: Yes: no symptom reported Pulmonary: Yes no symptom reported Cardiovascular: Yes no symptom reported Gastrointestional: Yes: no symptom reported Musculoskeletal: Yes: no symptom reported Psychiatric/Neurological: Yes: no symptom reported Endocrine: Yes: no symptom reported Hematologic/Lymphatic: Yes: no symptom reported Physical Exam General Appearance: no apparent distress Skin: warm Respiratory: decreased breath sounds Heart: S1S2, RRR Abdomen: soft, bowel sounds present Genitourinary: bladder flat Extremities: pulses present, no edema, atrophy Neurology: alert, oriented, follow commands Musculoskeletal: Other Assessment Assessment IMP ESRD HYPERVOLEMIA-BETTER ANEMIA DM II HTN ACUTE HYPOXIC AND HYPERCARBIC RESP FAILURE-RESOLVED MORBID OBESITY PLAN HD TOMORROW D/C PLANS NOTED WILL CALL REPORT TO [facility] MEJIA RAMOS MD Oct 05, 2017 11:24
[2017-10-05] MEDS: ACETAMINOPHEN 325 MG TABLET. PO PRN (12:41)
--- NOTE | 2017-10-05 13:46 | DS ---
DATE OF DISCHARGE: 10/05/2017 REASON FOR ADMISSION TO THE HOSPITAL: Acute hypercapnic respiratory failure, metabolic encephalopathy. CONSULTATIONS: 1. Dr. Parker, Pulmonology. 2. Dr. Hadley Sandoval, Cardiology. 3. Dr. Ricky Root, Renal. 2. Dr. Celestino Root from Infectious Disease. PROCEDURES DONE: Echocardiogram and insertion for central line. COMPLICATIONS NOTED: None. HOSPITAL COURSE: The patient is a 67-year-old female, morbidly obese, more than 400 pounds. She has history of diabetes, hypertension, hyperlipidemia, and previous strokes and seizures. She has end-stage renal disease, goes to dialysis 3 times a week and she also has history of sleep apnea. She uses oxygen at home. She was brought into the hospital because she was sick for the last 3 days, missed dialysis, and when she came in, she was hard to arouse, obtunded. She had a pH 7.19, pCO2 90, diagnosed with acute hypercapnic respiratory failure. Her blood sugar was low at 40, was given D50 and was admitted to the ICU. The patient was seen by Pulmonology and she was placed on BiPAP. Within 24 hours, her pH was corrected and blood sugars were improving with D50 and D5. The patient had infiltrates on the chest x-ray, was probably thought secondary to fluid overload because she missed dialysis, but patient was initially put on broad-spectrum antibiotics, suspecting pneumonia. With dialysis, lung infiltrates have improved. No evidence of fever. Antibiotic was discontinued after 48 hours of admission. The patient was doing well with dialysis, her blood sugars improved, her nutrition and mental condition improved. She is off BiPAP and she was on oxygen. She was transferred out to second floor and she did well and she was discharged. It was recommended that she should not use scheduled insulin, only use sliding scale. FINAL DIAGNOSES: 1. Hypercapnic respiratory failure, requiring BiPAP. 2. Hypoglycemia secondary to diabetes, adjustment was made. 3. Hemodialysis, the patient missed 2 dialyses, came with fluid overload. 4. Initially suspected gram-negative pneumonia, but lung infiltrates have improved. It does not look like she has any pneumonia at this point. 5. Old cerebrovascular accident. 6. History of seizures, stable. 7. Hypertension. 8. Hyperlipidemia. 9. Morbid obesity. The patient is discharged home, to take insulin with sliding scale before meals and keep it between 100-150; use sliding scale if it is more than 150. The patient is on outpatient dialysis 3 times, to take Wednesday, Wednesday, and Wednesday. She is already up-to-date on flu and pneumonia vaccinations and scheduled for outpatient sleep study. The patient would need CPAP or BiPAP at home, but would be done as outpatient. CARMITA WALL MD DR: EDIE/ayan JOB#: [id number] / [id number]
[2017-10-05 15:00] VITALS: BP 109/43
== END 2017-10-05 19:30 | disposition home or self-care (01) | DRG 189 ==
LOC: ER 20:06 → 1 WEST ICU 20:39 → 2 SOUTH 10-02 18:47
PROVIDERS: ADMIT Internal Medicine; ATTEND Internal Medicine
PROC: 5A09357 Assistance with Respiratory Ventilation, Less than 24 Consecutive Hours, Continuous Positive Airway Pressure (ICD-10-PCS; 2017-09-29)
PROC: 02HV33Z Insertion of Infusion Device into Superior Vena Cava, Percutaneous Approach (ICD-10-PCS; principal; 2017-09-30)
PROC: B548ZZA Ultrasonography of Superior Vena Cava, Guidance (ICD-10-PCS; 2017-09-30)
PROC: 5A09357 Assistance with Respiratory Ventilation, Less than 24 Consecutive Hours, Continuous Positive Airway Pressure (ICD-10-PCS; 2017-09-30)
PROC: 5A1D70Z Performance of Urinary Filtration, Intermittent, Less than 6 Hours Per Day (ICD-10-PCS; 2017-09-30)
PROC: 5A1D70Z Performance of Urinary Filtration, Intermittent, Less than 6 Hours Per Day (ICD-10-PCS; 2017-10-01)
PROC: 5A1D70Z Performance of Urinary Filtration, Intermittent, Less than 6 Hours Per Day (ICD-10-PCS; 2017-10-04)
DX: J96.22 Acute and chronic respiratory failure with hypercapnia (principal); G93.41 Metabolic encephalopathy; I13.2 Hypertensive heart and chronic kidney disease with heart failure and with stage 5 chronic kidney disease, or end stage renal disease; K31.84 Gastroparesis; E11.43 Type 2 diabetes mellitus with diabetic autonomic (poly)neuropathy; E11.22 Type 2 diabetes mellitus with diabetic chronic kidney disease; E11.649 Type 2 diabetes mellitus with hypoglycemia without coma; E66.01 Morbid (severe) obesity due to excess calories; N18.6 End stage renal disease; I50.33 Acute on chronic diastolic (congestive) heart failure; Z68.42 Body mass index [BMI] 45.0-49.9, adult; I69.354 Hemiplegia and hemiparesis following cerebral infarction affecting left non-dominant side; E87.70 Fluid overload, unspecified; J96.21 Acute and chronic respiratory failure with hypoxia; D64.9 Anemia, unspecified; E03.9 Hypothyroidism, unspecified; E78.5 Hyperlipidemia, unspecified; G40.909 Epilepsy, unspecified, not intractable, without status epilepticus; G47.30 Sleep apnea, unspecified; K21.9 Gastro-esophageal reflux disease without esophagitis; M10.9 Gout, unspecified; M19.90 Unspecified osteoarthritis, unspecified site; K21.0 Gastro-esophageal reflux disease with esophagitis; F32.9 Major depressive disorder, single episode, unspecified; E21.3 Hyperparathyroidism, unspecified; M85.80 Other specified disorders of bone density and structure, unspecified site; Z79.4 Long term (current) use of insulin; Z82.49 Family history of ischemic heart disease and other diseases of the circulatory system; Z91.15 Patient's noncompliance with renal dialysis; Z90.710 Acquired absence of both cervix and uterus; Z90.49 Acquired absence of other specified parts of digestive tract; Z99.3 Dependence on wheelchair; Z83.3 Family history of diabetes mellitus; Z99.2 Dependence on renal dialysis; Z99.81 Dependence on supplemental oxygen
CPT/HCPCS: 36415; 36556; 36600; 71010; 76937; 77001; 80048; 80061; 80076; 80202; 82140; 82553; 82805; 82962; 83036; 83605; 83735; 83880; 84443; 84484; 85025; 86706; 87040; 87340; 87341; 87641; 87804; 93005; 93306; 94250; 94640; 94660; 94760; 96365; 96375; 99292; C1769; C1892; G0238; J1265; J1815; J1953; J1956; J2543; J2765; J3370; J7040; J7042; J7620; J8597; 92610; 99291-25

== ENCOUNTER 2019-02-05 23:20 | Inpatient (IN) | payer OTHER ==
[~2019-02-05] VITALS: Ht 165.1 cm; Wt 122.6 kg
[~2019-02-05 23:20] MED LIST changes: +ALBU2.5V8 IH; +AMOX1TAB58 PO; -GABA-586 PO; +GABA300C18 PO; -HYDR-2758 PO; +HYDR-2761 PO; +OMEP20CA10 PO; -OMEP20CA9 PO; -PROAIR HFA8.5 GM IH; +SULF1TAB24 PO
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
[2019-02-06 00:31] LABS: BASO % 0 % (0-3); EOS # 0.1 x10^3/uL (0.0-0.7); EOS % 2 % (0-3); HEMATOCRIT 32.6 % (36.0-47.0); HEMOGLOBIN 10.6 g/dL (12.0-15.5); LYMPH # 1.5 x10^3/uL (1.0-4.8); LYMPH % 25 % (24-48); MEAN CORPUSCULAR HEMOGLOBIN 32 pg (25-35); MEAN CORPUSCULAR HGB CONC 33 g/dL (31-37); MEAN CORPUSCULAR VOLUME 98 fL (79-100); MONO # 0.5 x10^3/uL (0.0-1.1); MONO % 8 % (0-9); NEUT # 3.7 x10^3uL (1.8-7.7); NEUT % 65 % (31-73); PLATELET COUNT 191 x10^3/uL (140-400); RED BLOOD COUNT 3.34 x10^6/uL (3.50-5.40); RED CELL DISTRIBUTION WIDTH 14.8 % (11.5-14.5); WHITE BLOOD COUNT 5.8 x10^3/uL (4.0-11.0)
[2019-02-06 00:33] LABS: CALCIUM 7.6 mg/dL (8.5-10.1); CREATININE 7.1 mg/dL (0.6-1.0); POTASSIUM 4.4 mmol/L (3.5-5.1)
[2019-02-06 00:40] LABS: ALBUMIN 2.6 g/dL (3.4-5.0); ALBUMIN/GLOBULIN RATIO 0.6 (1.0-1.7); MAGNESIUM 2.2 mg/dL (1.8-2.4); PHOSPHORUS 4.8 mg/dL (2.6-4.7); TOTAL BILIRUBIN 0.2 mg/dL (0.2-1.0); TOTAL PROTEIN 6.8 g/dL (6.4-8.2)
[2019-02-06] MEDS ORDERED: ONDANSETRON PF 4 MG/2 ML VIAL. IV ONE (01:15)
[2019-02-06] MEDS ORDERED: fentaNYL PF VIAL 100 MCG/2 ML VIAL IV ONE (01:15)
[2019-02-06 03:57] VITALS: BP 144/63
[2019-02-06 07:00] VITALS: BP 133/74
[2019-02-06] MEDS ORDERED: DEXTROSE 50% 25 GM / 50ML DISP.SYRIN. IV PRN (10:15)
[2019-02-06] MEDS ORDERED: ALPRAZolam 0.25 MG TABLET PO PRN (10:15)
--- NOTE | 2019-02-06 10:22 | PDOC ---
Provider Note Provider Note Pt seen.H&P dictated.#[id number] CARMITA WALL MD Feb 06, 2019 10:22
[2019-02-06] MEDS: SENNOSIDES 8.6 MG TABLET PO SCH ×2 (10:45→21:33)
[2019-02-06 11:00] VITALS: BP 125/48
[2019-02-06] MEDS: levETIRAcetam 500 MG TABLET PO SCH ×2 (11:00→21:33)
[2019-02-06] MEDS: cloNIDine HCL 0.1 MG TABLET PO SCH ×3 (11:00→21:00)
[2019-02-06] MEDS: CYCLOBENZAPRINE 10 MG TABLET. PO SCH ×2 (11:00→21:33)
[2019-02-06] MEDS: HEPARIN for SUB-Q USE 5,000 UNIT/ML VIAL. SQ SCH ×2 (11:00→21:44)
[2019-02-06] MEDS: CINACALCET HCL 30 MG TABLET PO SCH (11:00)
[2019-02-06] MEDS ORDERED: AMPICILLIN/SULBACTAM 3 GM in IV NORMAL SALINE 100ML 100 ML IV SCH (11:00)
--- NOTE | 2019-02-06 11:26 | PDOC2 ---
YONNY CORONADO LINEN KEEPER 02/06/19 1126: CONSULT Date of Consult Date of Consult DATE: 02/06/19 TIME: 11:16 Reason for Consult Reason for Consult: breast abscess Referring Physician Referring Physician: Dr Lobo Identification/Chief Complaint Chief Complaint placement Source Source: Chart review, Patient History of Present Illness Reason for Visit: Here for feeling unsafe at home, looking for snu placement General surgery consult for possible breast abscess--unsure how long has been there, no drainage, there is pain at times. She does have a hx of buttock wound that required debridement in Dec Past Medical History Cardiovascular: CHF, HTN, Hyperlipidemia CENTRAL NERVOUS SYSTEM: CVA, Seizure GI: Constipation, Other Heme/Onc: Anemia NOS Psych: Depression Musculoskeletal: Other Rheumatologic: Gout Renal/: Chronic renal failure, Other Endocrine: Diabetes, Hypothyroidism, Hyperparathyroidism, Osteopenia Past Surgical History Past Surgical History: Cholecystectomy, , Hysterectomy Family History Family History: Coronary Artery Disease, Hypertension, Kidney Disease Social History ALCOHOL: none Drugs: None Lives: with Family Current Problem List Problem List Problems Medical Problems: (1) Anxiety reaction Status: Acute (2) ESRD (end stage renal disease) Status: Acute Current Medications Current Medications Current Medications Fentanyl Citrate (Fentanyl 2ml Vial) 50 mcg 1X ONCE IV ; Start 02/06/19 at 01: 15; Stop 02/06/19 at 01:15; Status DC Ondansetron HCl (Zofran) 4 mg 1X ONCE IV ; Start 02/06/19 at 01:15; Stop at 01:15; Status DC Allopurinol (Zyloprim) 100 mg DAILY PO ; Start 02/06/19 at 11:00 Alprazolam (Xanax) 0.25 mg PRN BID PRN PO ANXIETY / AGITATION; Start 02/06/19 at 10:15 Cinacalcet (Sensipar) 30 mg DAILY PO ; Start 02/06/19 at 11:00 Citalopram Hydrobromide (CeleXA) 10 mg DAILY PO ; Start 02/06/19 at 11:00 Clonidine HCl (Catapres) 0.1 mg TID PO ; Start 02/06/19 at 11:00 Clopidogrel Bisulfate (Plavix) 75 mg DAILY PO ; Start 02/06/19 at 11:00 Cyclobenzaprine HCl (Flexeril) 10 mg BID PO ; Start 02/06/19 at 11:00 Gabapentin (Neurontin) 300 mg HS PO ; Start 02/06/19 at 21:00 Acetaminophen/ Hydrocodone Bitart (Lortab 5/325) 1 tab PRN Q6HRS PRN PO MODERATE PAIN; Start 02/06/19 at 10:15 Levetiracetam (Keppra) 500 mg BID PO ; Start 02/06/19 at 11:00 Metoclopramide HCl (Reglan) 5 mg QIDACHS PO ; Start 02/06/19 at 11:30 Non-Formulary Medication (Levalbuterol Tartrate (Xopenex Hfa)) 2 puff QID IH ; Start 02/06/19 at 13:00; Status UNV Non-Formulary Medication (Naloxegol Oxalate (Movantik)) 25 mg DAILY PO ; Start 02/07/19 at 09:00; Status UNV Sennosides (Senna) 8.6 mg BID PO ; Start 02/06/19 at 10:45 Simvastatin (Zocor) 40 mg QHS PO ; Start 02/06/19 at 21:00 Vitamin B Complex/ Vitamin C (Makayla-Britton) 1 tab DAILY PO ; Start 02/06/19 at 11: 00 Calcium Acetate (Phoslo) 2,001 mg TIDWMEALS PO ; Start 02/06/19 at 12:00 Ampicillin Sodium/ Sulbactam Sodium 3 gm/Sodium Chloride 100 ml @ 200 mls/hr Q12HR IV ; Start 02/06/19 at 11:00; Stop 02/06/19 at 11:08; Status DC Insulin Human Lispro (HumaLOG) 0-5 UNITS TIDWMEALS SQ ; Start 02/06/19 at 12:00 Dextrose (Dextrose 50%-Water Syringe) 12.5 gm PRN Q15MIN PRN IV SEE COMMENTS; Start 02/06/19 at 10:15 Heparin Sodium (Porcine) (Heparin Sodium) 5,000 unit Q12HR SQ ; Start 02/06/19 at 11:00 Albuterol Sulfate (Ventolin Neb Soln) 2.5 mg RTQID NEB ; Start 02/06/19 at 12:00 Cefazolin Sodium/ Dextrose 50 ml @ 100 mls/hr DAILY IV ; Start 02/06/19 at 12: 00 Active Scripts Active Augmentin 500-125 Tablet (Amoxicillin/Potassium Clav) 1 Each Tablet 1 Tab PO BID Reported [phoslo] 2,001 Mg PO TID Movantik (Naloxegol Oxalate) 25 Mg Tablet 25 Mg PO DAILY Xopenex Hfa (Levalbuterol Tartrate) 15 Gm Hfa.aer.ad 2 Puff IH QID Keppra (Levetiracetam) 500 Mg Tablet 1 Tab PO BID Vol-Care Rx Tablet (Vit B Cmplx 3/Fa/Vit C/Biotin) 1 Each Tablet 1 Each PO DAILY Clopidogrel (Clopidogrel Bisulfate) 75 Mg Tablet 1 Tab PO DAILY Alprazolam 0.25 Mg Tablet 1 Tab PO PRN BID PRN Celexa (Citalopram Hydrobromide) 10 Mg Tablet 1 Tab PO DAILY Allopurinol 100 Mg Tablet 1 Tab PO DAILY Sensipar (Cinacalcet Hcl) 30 Mg Tablet 1 Tab PO DAILY Simvastatin 40 Mg Tablet 1 Tab PO QHS Gabapentin (Gabapentin) 300 Mg Capsule 1 Cap PO HS Senna (Sennosides) 8.6 Mg Capsule 8.6 Mg PO BID Cyclobenzaprine Hcl 10 Mg Tablet 1 Tab PO BID Reglan (Metoclopramide Hcl) 10 Mg Tablet 5 Mg PO QIDACHS Clonidine Hcl 0.1 Mg Tablet 1 Tab PO TID Hydrocodone-Apap 5-325 (Hydrocodone Bit/Acetaminophen) 1 Each Tablet 1 Tab PO PRN Q6HRS PRN Allergies Allergies: Coded Allergies: No Known Drug Allergies (Unverified , 07/19/15) ROS General: No: Chills, Other (tom) PSYCHOLOGICAL ROS: No: Anxiety, Depression Eyes: No Blurry vision, No Double vision HEENT: No: Heacaches, Sore Throat Hematological and Lymphatic: No: Bleeding Problems, Blood Clots Respiratory: No: Cough, SOB with excertion Cardiovascular: No Chest Pain, No Palpitations Gastrointestinal: No Nausea, No Vomiting Genitourinary: No Dysuria, No Hematuria Musculoskeletal: Yes Muscle Pain, Yes Muscular Weakness Neurological: No Impaired Coord/balance, No Numbness/Tingling Skin: Yes Other (see hpi) Physical Exam Physical Exam right breast 6oclock--fluctuant tender area, no drainage General: Alert, Oriented X3, Cooperative, No acute distress HEENT: PERRLA, Mucous membr. moist/pink Lungs: Clear to auscultation, Normal air movement Heart: Regular rate, Normal S1, Normal S2, No murmurs Abdomen: Soft, No tenderness Extremities: No clubbing, No cyanosis Neuro: Normal speech, Sensation intact Psych/Mental Status: Mental status NL, Mood NL MUSCULOSKELETAL: No deformity, No swelling Vitals VITALS Vital Signs Date Time Temp Pulse Resp B/P (MAP) Pulse Ox O2 Delivery O2 Flow Rate FiO2 02/06/19 08:00 Room Air 02/06/19 07:00 98.0 76 22 133/74 (93) 96 98.0 Labs Labs Laboratory Tests Test 02/06/19 00:15 02/06/19 07:58 White Blood Count 5.8 x10^3/uL (4.0-11.0) Red Blood Count 3.34 x10^6/uL (3.50-5.40) Hemoglobin 10.6 g/dL (12.0-15.5) Hematocrit 32.6 % (36.0-47.0) Mean Corpuscular Volume 98 fL (79-100) Mean Corpuscular Hemoglobin 32 pg (25-35) Mean Corpuscular Hemoglobin Concent 33 g/dL (31-37) Red Cell Distribution Width 14.8 % (11.5-14.5) Platelet Count 191 x10^3/uL (140-400) Neutrophils (%) (Auto) 65 % (31-73) Lymphocytes (%) (Auto) 25 % (24-48) Monocytes (%) (Auto) 8 % (0-9) Eosinophils (%) (Auto) 2 % (0-3) Basophils (%) (Auto) 0 % (0-3) Neutrophils # (Auto) 3.7 x10^3uL (1.8-7.7) Lymphocytes # (Auto) 1.5 x10^3/uL (1.0-4.8) Monocytes # (Auto) 0.5 x10^3/uL (0.0-1.1) Eosinophils # (Auto) 0.1 x10^3/uL (0.0-0.7) Basophils # (Auto) 0.0 x10^3/uL (0.0-0.2) Sodium Level 145 mmol/L (136-145) Potassium Level 4.4 mmol/L (3.5-5.1) Chloride Level 103 mmol/L (98-107) Carbon Dioxide Level 33 mmol/L (21-32) Anion Gap 9 (6-14) Blood Urea Nitrogen 47 mg/dL (7-20) Creatinine 7.1 mg/dL (0.6-1.0) Estimated GFR (Cockcroft-Gault) 7.0 BUN/Creatinine Ratio 7 (6-20) Glucose Level 155 mg/dL (70-99) Calcium Level 7.6 mg/dL (8.5-10.1) Phosphorus Level 4.8 mg/dL (2.6-4.7) Magnesium Level 2.2 mg/dL (1.8-2.4) Total Bilirubin 0.2 mg/dL (0.2-1.0) Aspartate Amino Transf (AST/SGOT) 34 U/L (15-37) Alanine Aminotransferase (ALT/SGPT) 30 U/L (14-59) Alkaline Phosphatase 156 U/L (46-116) Total Protein 6.8 g/dL (6.4-8.2) Albumin 2.6 g/dL (3.4-5.0) Albumin/Globulin Ratio 0.6 (1.0-1.7) Hepatitis B Surface Antigen Nonreactive (Nonreactive) Glucose (Fingerstick) 148 mg/dL (70-99) Laboratory Tests Test 02/06/19 00:15 02/06/19 07:58 White Blood Count 5.8 x10^3/uL (4.0-11.0) Red Blood Count 3.34 x10^6/uL (3.50-5.40) Hemoglobin 10.6 g/dL (12.0-15.5) Hematocrit 32.6 % (36.0-47.0) Mean Corpuscular Volume 98 fL (79-100) Mean Corpuscular Hemoglobin 32 pg (25-35) Mean Corpuscular Hemoglobin Concent 33 g/dL (31-37) Red Cell Distribution Width 14.8 % (11.5-14.5) Platelet Count 191 x10^3/uL (140-400) Neutrophils (%) (Auto) 65 % (31-73) Lymphocytes (%) (Auto) 25 % (24-48) Monocytes (%) (Auto) 8 % (0-9) Eosinophils (%) (Auto) 2 % (0-3) Basophils (%) (Auto) 0 % (0-3) Neutrophils # (Auto) 3.7 x10^3uL (1.8-7.7) Lymphocytes # (Auto) 1.5 x10^3/uL (1.0-4.8) Monocytes # (Auto) 0.5 x10^3/uL (0.0-1.1) Eosinophils # (Auto) 0.1 x10^3/uL (0.0-0.7) Basophils # (Auto) 0.0 x10^3/uL (0.0-0.2) Sodium Level 145 mmol/L (136-145) Potassium Level 4.4 mmol/L (3.5-5.1) Chloride Level 103 mmol/L (98-107) Carbon Dioxide Level 33 mmol/L (21-32) Anion Gap 9 (6-14) Blood Urea Nitrogen 47 mg/dL (7-20) Creatinine 7.1 mg/dL (0.6-1.0) Estimated GFR (Cockcroft-Gault) 7.0 BUN/Creatinine Ratio 7 (6-20) Glucose Level 155 mg/dL (70-99) Calcium Level 7.6 mg/dL (8.5-10.1) Phosphorus Level 4.8 mg/dL (2.6-4.7) Magnesium Level 2.2 mg/dL (1.8-2.4) Total Bilirubin 0.2 mg/dL (0.2-1.0) Aspartate Amino Transf (AST/SGOT) 34 U/L (15-37) Alanine Aminotransferase (ALT/SGPT) 30 U/L (14-59) Alkaline Phosphatase 156 U/L (46-116) Total Protein 6.8 g/dL (6.4-8.2) Albumin 2.6 g/dL (3.4-5.0) Albumin/Globulin Ratio 0.6 (1.0-1.7) Hepatitis B Surface Antigen Nonreactive (Nonreactive) Glucose (Fingerstick) 148 mg/dL (70-99) Assessment/Plan Assessment/Plan possible breast abscess will check US to further HERMANN Koenig MD 02/06/19 4700: CONSULT Assessment/Plan Assessment/Plan pt seen, interviewed and examined on her way for dialysis will schedule for tomorrow AM, IandD right breast abscess will follow Thanks for consult YONNY CORONADO APRN Feb 06, 2019 11:26 HERMANN PEREZ MD Feb 06, 2019 13:04
[2019-02-06] MEDS: ALBUTEROL SULFATE 2.5 MG/3 ML NEBU. NEB SCH ×3 (11:28→19:51)
[2019-02-06] MEDS: METOCLOPRAMIDE 5 MG TABLET. PO SCH ×3 (11:30→21:31)
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
[2019-02-06] MEDS: CALCIUM ACETATE 667 MG CAPSULE PO SCH ×2 (12:00→21:33)
[2019-02-06] MEDS: INSULIN LISPRO 300 UNITS/3 ML INSULN.PEN. SQ SCH ×2 (12:00→17:00)
[2019-02-06] MEDS ORDERED: IV NORMAL SALINE 1000ML BAG 1,000 ML IV PRN ×2 (12:36)
--- NOTE | 2019-02-06 12:43 | NUR ---
Pt taken to dialysis by bed.
[2019-02-06] MEDS ORDERED: diphenhydrAMINE 50 MG/ML VIAL IV PRN ×2 (12:45)
[2019-02-06] MEDS ORDERED: DIALYSIS PATIENT. MC PRN ×2 (12:45)
[2019-02-06] MEDS ORDERED: NON FORMULARY ITEM (Levalbuterol Tartrate (Xopenex Hfa) 2 PUFF) IH SCH (13:00)
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
--- NOTE | 2019-02-06 14:00 | NUR ---
Spoke to Dr Manriquez. Plans to do I&D of abscess on right breast tomorrow at 0930. Received orders for NPO after midnight and consents to be signed.
--- NOTE | 2019-02-06 14:29 | NUR ---
Wound care: Patient seen per wound care consult. See wound assessment. Patient is known to us from previous admissions. Dressings removed and wounds cleansed and assessed. The right breast abscess is indurated and dusky red but is not open at this time. Surgery is consulted, but has not seen patient at this time. skin prep and foam placed on abscess at this time. The left buttock wound which patient has been seen for during previous admissions, is reddened with granulation tissue and appears clean with minimal depth. Recommendations for skin prep, aquacel ag and foam dressing. Dressing applied and patient tolerated well. Patient repositioned and turned to left side using pillow at this time. Dressing change instructions left in room. Wound care will follow up with patient regarding surgery of right breast abscess. Call light in reach and bed lowered. Spoke with RN regarding POC.
--- NOTE | 2019-02-06 16:03 | NUR ---
SW following pt. [facility] declined to take pt stating they do not have a bed. Spoke with Ly at [facility] and who reported they needed CARE Assessment and if they do take pt, it will only be for two weeks. Ly had left a voice mail to pt's daughters to confirm SSI benefits and length of stay. SW completed CARE assessment but pt was asleep and unable to sign at this time. SW will f/u with pt in the morning. RN reported pt is having I&D tomorrow morning as as well. Acceptance and admission still pending. Will continue to follow.
[2019-02-06 19:35] VITALS: BP 104/41
[2019-02-06] MEDS: GABAPENTIN 300 MG CAPSULE. PO SCH (21:31)
[2019-02-06] MEDS: CLOPIDOGREL BISULFATE 75 MG TABLET PO SCH (21:31)
[2019-02-06] MEDS: FOLIC/VIT B COMP W-C (RENAL) TABLET. PO SCH (21:32)
[2019-02-06] MEDS: SIMVASTATIN 40 MG TABLET. PO SCH (21:33)
[2019-02-06] MEDS: HYDROcodone/APAP 5/325MG 1 TAB TABLET PO PRN (21:33)
[2019-02-06] MEDS: CITALOPRAM 10 MG TABLET. PO SCH (21:34)
[2019-02-06] MEDS: ALLOPURINOL 100 MG TABLET. PO SCH (21:34)
[2019-02-06 23:35] VITALS: BP 117/53
[2019-02-07] VITALS (12 sets, daily range): BP systolic 103–156; BP diastolic 42–75
[2019-02-07 05:20] LABS: BASO % 1 % (0-3); EOS # 0.1 x10^3/uL (0.0-0.7); EOS % 2 % (0-3); HEMATOCRIT 32.4 % (36.0-47.0); HEMOGLOBIN 10.4 g/dL (12.0-15.5); LYMPH # 1.5 x10^3/uL (1.0-4.8); LYMPH % 33 % (24-48); MEAN CORPUSCULAR HEMOGLOBIN 31 pg (25-35); MEAN CORPUSCULAR HGB CONC 32 g/dL (31-37); MEAN CORPUSCULAR VOLUME 98 fL (79-100); MONO # 0.4 x10^3/uL (0.0-1.1); MONO % 10 % (0-9); NEUT # 2.4 x10^3uL (1.8-7.7); NEUT % 54 % (31-73); PLATELET COUNT 178 x10^3/uL (140-400); RED BLOOD COUNT 3.32 x10^6/uL (3.50-5.40); RED CELL DISTRIBUTION WIDTH 14.9 % (11.5-14.5); WHITE BLOOD COUNT 4.5 x10^3/uL (4.0-11.0)
[2019-02-07] MEDS ORDERED: ONDANSETRON PF 4 MG/2 ML VIAL. IV PRN (07:00)
[2019-02-07] MEDS ORDERED: fentaNYL PF VIAL 100 MCG/2 ML VIAL IV PRN ×2 (07:00)
[2019-02-07] MEDS ORDERED: HYDROmorphone 2 MG/ML VIAL IV PRN (07:00)
[2019-02-07] MEDS ORDERED: PROCHLORPERAZINE 10 MG/2 ML VIAL. IV PRN (07:00)
[2019-02-07] MEDS ORDERED: MORPHINE SULFATE 2 MG/ML VIAL. IV PRN (07:00)
[2019-02-07] MEDS ORDERED: LIDOCAINE 1% PF 2 ML VIAL. ID PRN (07:00)
[2019-02-07] MEDS ORDERED: IV NORMAL SALINE 1000ML BAG 1,000 ML IV SCH (07:00)
[2019-02-07] MEDS ORDERED: IV RINGERS,LACTATED 1000ML 1,000 ML IV SCH (07:00)
[2019-02-07] MEDS: METOCLOPRAMIDE 5 MG TABLET. PO SCH ×4 (07:30→21:48)
--- NOTE | 2019-02-07 07:32 | EKG ---
[facility] [address] [place] [address] Test Date: 1999-11-29 Test Time: 15:16:52 Pat Name: MARKUS HE Department: Room: 2 1 Gender: F Dining Car Hop: JONATHAN : 1950 Requested By: CARMITA WALL Order Number: [id number] Reading MD: Hadley Sandoval MD Measurements Intervals [place] Rate: 73 P: 49 AK: 180 QRS: 27 QRSD: 86 T: 31 QT: 414 QTc: 460 Interpretive Statements SINUS RHYTHM Electronically Signed On 02-07-2019 21:25:04 CDT by Hadley Sandoval MD
[2019-02-07] MEDS ORDERED: BUPIVAC MPF-EPI 0.5%-1:200000 30 ML VIAL. ONE (07:34)
[2019-02-07] MEDS: ALBUTEROL SULFATE 2.5 MG/3 ML NEBU. NEB SCH ×4 (07:43→20:12)
[2019-02-07 07:52] LABS: CALCIUM 8.2 mg/dL (8.5-10.1); CREATININE 4.1 mg/dL (0.6-1.0); GFR 13.1; POTASSIUM 4.2 mmol/L (3.5-5.1)
[2019-02-07] MEDS: INSULIN LISPRO 300 UNITS/3 ML INSULN.PEN. SQ SCH ×3 (08:00→16:52)
[2019-02-07] MEDS: CALCIUM ACETATE 667 MG CAPSULE PO SCH ×3 (08:00→16:51)
[2019-02-07] MEDS: cloNIDine HCL 0.1 MG TABLET PO SCH ×3 (08:35→21:48)
--- NOTE | 2019-02-07 08:39 | RAD ---
PORTABLE CHEST 1V Clinical indications: pre op/chf and hypertension COMPARISON: September 30, 2017. Findings: Chronic elevation of the left hemidiaphragm and chronic scarring of the left lung base is seen. Otherwise no new lung infiltrate or pulmonary edema or pleural effusion or pneumothorax is seen. Right subclavian and brachiocephalic vascular stent is again evident. The heart size and mediastinum are stable. Impression: No new radiographic abnormality is seen. Electronically signed by: Mohinder Garces MD (02/07/2019 8:36 AM) [place] [id number]
[2019-02-07] MEDS ORDERED: NEOMY/BACITR/POLYMYXIN OINT PACKET. TP ONE (08:41)
[2019-02-07] MEDS: HEPARIN for SUB-Q USE 5,000 UNIT/ML VIAL. SQ SCH ×2 (09:00→21:58)
[2019-02-07] MEDS ORDERED: NON FORMULARY ITEM (Naloxegol Oxalate (Movantik) 25 MG) PO SCH (09:00)
[2019-02-07] MEDS ORDERED: PROPOFOL 20 ML IV ONE (09:48)
[2019-02-07] MEDS ORDERED: LIDOCAINE 2% PF 5 ML VIAL. ONE (09:48)
[2019-02-07] MEDS ORDERED: SEVOFLURANE 16 TO 30 MINUTES. IH ONE (09:48)
[2019-02-07] MEDS ORDERED: ePHEDrine PF IN SALINE 50 MG/10 ML SYRINGE. IV ONE (09:48)
--- NOTE | 2019-02-07 09:56 | PDOC ---
BRIEF OPERATIVE NOTE Date: Feb 07, 2019 Pre-Op Diagnosis right breast abscess Post-Op Diagnosis same Procedure Performed incision and drainage Surgeon Declan Anesthesia Type: General (LMA) Blood Loss 5cc IV Fluid 100cc Specimens Obtained cultures Findings superficial abscess Complications none Operative Note Wk # [id number] HERMANN PEREZ MD Feb 07, 2019 09:56
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
--- NOTE | 2019-02-07 10:39 | OP ---
DATE OF SURGERY: 02/07/2019 PREOPERATIVE DIAGNOSIS: Right breast abscess. POSTOPERATIVE DIAGNOSIS: Right breast abscess. PROCEDURE: Incision and drainage. SURGEON: Hermann Perez MD ANESTHESIA: General LMA. BLOOD LOSS: 5. INTRAVENOUS FLUIDS: 100. INDICATIONS: The patient is a 68-year-old lady with pain, fullness and fluctuance at right breast with ultrasound findings of an abscess, brought for incision and drainage. DESCRIPTION OF PROCEDURE: The patient was brought to the operating suite, given a general LMA and the right breast prepped and draped in usual sterile fashion. The process was unroofed, evacuated, cultured and irrigated. Hemostasis present with cautery. Wound dressed with antibiotic ointment, 4 x 4s and tape. The patient tolerated the procedure well and was awakened from her anesthetic and went to the recovery area in satisfactory condition. HERMANN PEREZ MD DR: RAMAKRISHNA/nts JOB#: [id number] / [id number]
[2019-02-07] MEDS: FOLIC/VIT B COMP W-C (RENAL) TABLET. PO SCH (11:44)
[2019-02-07] MEDS: SENNOSIDES 8.6 MG TABLET PO SCH ×2 (11:44→21:48)
[2019-02-07] MEDS: CLOPIDOGREL BISULFATE 75 MG TABLET PO SCH (11:44)
[2019-02-07] MEDS: ALLOPURINOL 100 MG TABLET. PO SCH (11:44)
[2019-02-07] MEDS: levETIRAcetam 500 MG TABLET PO SCH ×2 (11:44→21:48)
[2019-02-07] MEDS: HYDROcodone/APAP 5/325MG 1 TAB TABLET PO PRN ×2 (11:44→21:48)
[2019-02-07] MEDS: CITALOPRAM 10 MG TABLET. PO SCH (11:44)
[2019-02-07] MEDS: CYCLOBENZAPRINE 10 MG TABLET. PO SCH ×2 (11:45→21:48)
[2019-02-07] MEDS: CINACALCET HCL 30 MG TABLET PO SCH (11:45)
--- NOTE | 2019-02-07 15:21 | NUR ---
SW following pt. CARE assessment form faxed to [facility] and a copy is given to pt and placed on chart as well. SW faxed CARE assessment to [facility]. Spoke with Ly at [facility] and confirmed they have accepted pt and will have a bed available upon dc. Discussed with pt and pt's sister, Melody who agree with dc plan. SW will await for dc order and proceed accordingly. RN notified.
[2019-02-07] MEDS: SIMVASTATIN 40 MG TABLET. PO SCH (21:48)
[2019-02-07] MEDS: GABAPENTIN 300 MG CAPSULE. PO SCH (21:48)
[2019-02-08 03:35] VITALS: BP 144/61
[2019-02-08] MEDS: ALBUTEROL SULFATE 2.5 MG/3 ML NEBU. NEB SCH ×2 (06:54→12:10)
[2019-02-08 07:14] VITALS: BP 145/64
[2019-02-08] MEDS: METOCLOPRAMIDE 5 MG TABLET. PO SCH ×2 (07:30→13:52)
[2019-02-08] MEDS: HYDROcodone/APAP 5/325MG 1 TAB TABLET PO PRN (07:41)
[2019-02-08] MEDS: INSULIN LISPRO 300 UNITS/3 ML INSULN.PEN. SQ SCH ×2 (08:00→12:00)
[2019-02-08] MEDS: CALCIUM ACETATE 667 MG CAPSULE PO SCH ×2 (08:00→13:52)
[2019-02-08] MEDS: HEPARIN for SUB-Q USE 5,000 UNIT/ML VIAL. SQ SCH (09:00)
[2019-02-08] MEDS: cloNIDine HCL 0.1 MG TABLET PO SCH ×2 (09:00→13:53)
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
[2019-02-08] MEDS ORDERED: IV NORMAL SALINE 1000ML BAG 1,000 ML IV PRN ×2 (09:29)
[2019-02-08] MEDS ORDERED: diphenhydrAMINE 50 MG/ML VIAL IV PRN ×2 (09:30)
[2019-02-08] MEDS ORDERED: DIALYSIS PATIENT. MC PRN (09:30)
--- NOTE | 2019-02-08 09:33 | SNU/HH DC ---
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 Admit to assisted care CHECKS AFTER DISCHARGE: CHECKS AFTER DISCHARGE: Check blood press - daily, Check blood sugar, ac/hs, Check your Temp as needed, Weigh Yourself Daily TREATMENT/EQUIPMENT ORDERS: ADAPTIVE EQUIPMENT NEEDED: None, Wheelchair RESPIRATORY EQUIPMENT NEEDED: Oxygen Physical Therapy For: Evalulation/Treatment Occupational Therapy For: Evaluation/Treatment DISCHARGE MEDICATIONS: Home Meds Active Scripts Amoxicillin/Potassium Clav (AUGMENTIN 500-125 TABLET) 1 Each Tablet, 1 TAB PO BID for antibiotic, #14 TAB Prov:CARMITA WALL MD 11/25/18 Reported Medications [phoslo] No Conflict Check, 2001 MG PO TID 01/16/17 Naloxegol Oxalate (Movantik) 25 Mg Tablet, 25 MG PO DAILY 01/16/17 Levalbuterol Tartrate (XOPENEX HFA) 15 Gm Hfa.aer.ad, 2 PUFF IH QID, #15 GM 01/16/17 Levetiracetam (KEPPRA) 500 Mg Tablet, 1 TAB PO BID, #180 TAB 3 Refills 07/20/15 Vit B Cmplx 3/Fa/Vit C/Biotin (VOL-CARE RX TABLET) 1 Each Tablet, 1 EACH PO DAILY 07/20/15 Clopidogrel Bisulfate (CLOPIDOGREL) 75 Mg Tablet, 1 TAB PO DAILY, #90 TAB 1 Refill 07/20/15 Alprazolam (ALPRAZOLAM) 0.25 Mg Tablet, 1 TAB PO PRN BID PRN for ANXIETY / AGITATION, #90 TAB 07/20/15 Citalopram Hydrobromide (CELEXA) 10 Mg Tablet, 1 TAB PO DAILY, #30 TAB 2 Refills 07/20/15 Allopurinol (ALLOPURINOL) 100 Mg Tablet, 1 TAB PO DAILY, #30 TAB 5 Refills 07/20/15 Cinacalcet Hcl (SENSIPAR) 30 Mg Tablet, 1 TAB PO DAILY, #30 TAB 11 Refills 07/20/15 Simvastatin (SIMVASTATIN) 40 Mg Tablet, 1 TAB PO QHS, #30 TAB 5 Refills 07/20/15 Gabapentin (GABAPENTIN ) 300 Mg Capsule, 1 CAP PO HS, #90 CAP 5 Refills 07/20/15 Sennosides (SENNA) 8.6 Mg Capsule, 8.6 MG PO BID 07/20/15 Cyclobenzaprine Hcl (CYCLOBENZAPRINE HCL) 10 Mg Tablet, 1 TAB PO BID, #90 TAB 07/20/15 Metoclopramide Hcl (REGLAN) 10 Mg Tablet, 5 MG PO QIDACHS, #120 TAB 0 Refills 07/20/15 Clonidine Hcl (CLONIDINE HCL) 0.1 Mg Tablet, 1 TAB PO TID, #30 TAB 2 Refills 07/20/15 Hydrocodone Bit/Acetaminophen (HYDROCODONE-APAP 5-325 ) 1 Each Tablet, 1 TAB PO PRN Q6HRS PRN for PAIN, #90 TAB 07/20/15 CARMITA WALL MD Feb 08, 2019 09:33
--- NOTE | 2019-02-08 10:30 | NUR ---
Orders received from Dr. Manriquez for dressing to be changed on R breast daily, after showers, and PRN. Cleanse the site with wound wash, apply medicated gauze, cover with 4x4 gauze pads, and secure with Medipore tape.
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
--- NOTE | 2019-02-08 12:55 | NUR ---
AMELAI following pt. SW [facility] and [facility] and provided pt's OP HD schedule. Pt will transport to [facility] via stretcher transport at 1415. SW left a voice mail to pt's daughterJennifer and was unable to leave voice mail to daughterHannah. Pt aware of plan and agreeable. JOSE JUAN RN and Physician. Packet on chart.
[2019-02-08] MEDS: levETIRAcetam 500 MG TABLET PO SCH (13:52)
[2019-02-08] MEDS: ALLOPURINOL 100 MG TABLET. PO SCH (13:52)
[2019-02-08] MEDS: CYCLOBENZAPRINE 10 MG TABLET. PO SCH (13:52)
[2019-02-08] MEDS: CINACALCET HCL 30 MG TABLET PO SCH (13:52)
[2019-02-08] MEDS: FOLIC/VIT B COMP W-C (RENAL) TABLET. PO SCH (13:52)
[2019-02-08 13:53] VITALS: BP 100/47
[2019-02-08] MEDS: CITALOPRAM 10 MG TABLET. PO SCH (13:53)
[2019-02-08] MEDS: SENNOSIDES 8.6 MG TABLET PO SCH (13:53)
[2019-02-08] MEDS: CLOPIDOGREL BISULFATE 75 MG TABLET PO SCH (13:53)
--- NOTE | 2019-02-08 14:22 | NUR ---
Discharge Note: MARKUS HE [address] [place] [address] Discharge instructions and discharge home medications reviewed with Toya at [facility] and a copy given. All questions have been answered and understanding verbalized. Called [facility] and spoke with Anastasia, informed her that the patient was [facility]. Discontinued lines and drains: Peripheral IV intact. Patient discharged to [facility] with ambulance personnel via Stretcher.
--- NOTE | 2019-02-08 14:57 | NUR ---
Wound Care Attempted to see pt for wound care, pt has already discharged.
--- NOTE | 2019-02-14 21:45 | PDOC ---
Provider Note Provider Note Discharge summary dictated.#[id number]. CARMITA WALL MD Feb 14, 2019 21:45
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
== END 2019-02-08 14:22 | DRG 584 ==
LOC: ER 02-06 00:24 → 6 SOUTH 02-06 01:50 → OBSVTOIN 02-06 10:15
PROVIDERS: ADMIT Internal Medicine; ATTEND Internal Medicine
PROC: 5A1D70Z Performance of Urinary Filtration, Intermittent, Less than 6 Hours Per Day (ICD-10-PCS; 2019-02-06)
PROC: 0H9T0ZZ Drainage of Right Breast, Open Approach (ICD-10-PCS; principal; 2019-02-07 09:30)
PROC: 5A1D70Z Performance of Urinary Filtration, Intermittent, Less than 6 Hours Per Day (ICD-10-PCS; 2019-02-08)
DX: N61.1 Abscess of the breast and nipple (principal); N18.6 End stage renal disease; I13.2 Hypertensive heart and chronic kidney disease with heart failure and with stage 5 chronic kidney disease, or end stage renal disease; Z68.42 Body mass index [BMI] 45.0-49.9, adult; F41.1 Generalized anxiety disorder; E11.22 Type 2 diabetes mellitus with diabetic chronic kidney disease; E66.01 Morbid (severe) obesity due to excess calories; G47.33 Obstructive sleep apnea (adult) (pediatric); E03.9 Hypothyroidism, unspecified; E78.5 Hyperlipidemia, unspecified; I50.9 Heart failure, unspecified; M85.80 Other specified disorders of bone density and structure, unspecified site; Z74.01 Bed confinement status; Z82.49 Family history of ischemic heart disease and other diseases of the circulatory system; Z86.73 Personal history of transient ischemic attack (TIA), and cerebral infarction without residual deficits; Z99.2 Dependence on renal dialysis; Z90.710 Acquired absence of both cervix and uterus; E21.3 Hyperparathyroidism, unspecified; F32.9 Major depressive disorder, single episode, unspecified; M10.9 Gout, unspecified
CPT/HCPCS: 36415; 71045; 76641; 80048; 80053; 82962; 83735; 84100; 85025; 87071; 87075; 87186; 87340; 93005; 94640; 94760; A7015; G0378; G0379; J0171; J0696; J1644; J1815; J2001; J2704; J3490; J7030; J7613; J8597

== ENCOUNTER 2019-03-20 06:23 | Inpatient (IN) | payer OTHER ==
[~2019-03-20] VITALS: Ht 165.1 cm; Wt 123.5 kg
[2019-03-20 06:58] LABS: BASO # 0.1 x10^3/uL (0.0-0.2); BASO % 1 % (0-3); EOS # 0.2 x10^3/uL (0.0-0.7); EOS % 3 % (0-3); HEMATOCRIT 34.6 % (36.0-47.0); HEMOGLOBIN 10.8 g/dL (12.0-15.5); LYMPH # 1.8 x10^3/uL (1.0-4.8); LYMPH % 29 % (24-48); MEAN CORPUSCULAR HEMOGLOBIN 30 pg (25-35); MEAN CORPUSCULAR HGB CONC 31 g/dL (31-37); MEAN CORPUSCULAR VOLUME 97 fL (79-100); MONO # 0.5 x10^3/uL (0.0-1.1); MONO % 8 % (0-9); NEUT # 3.6 x10^3uL (1.8-7.7); NEUT % 59 % (31-73); PLATELET COUNT 157 x10^3/uL (140-400); RED BLOOD COUNT 3.57 x10^6/uL (3.50-5.40); RED CELL DISTRIBUTION WIDTH 14.6 % (11.5-14.5); WHITE BLOOD COUNT 6.2 x10^3/uL (4.0-11.0)
[2019-03-20 07:03] LABS: CALCIUM 9.5 mg/dL (8.5-10.1); CREATININE 10.1 mg/dL (0.6-1.0); GFR 4.6; POTASSIUM 5.3 mmol/L (3.5-5.1)
[2019-03-20 07:09] LABS: ALBUMIN 3.1 g/dL (3.4-5.0); ALBUMIN/GLOBULIN RATIO 0.7 (1.0-1.7); TOTAL BILIRUBIN 0.4 mg/dL (0.2-1.0); TOTAL PROTEIN 7.4 g/dL (6.4-8.2)
[2019-03-20 07:15] LABS: PROTHROMBIN TIME PATIENT 13.1 SEC (11.7-14.0)
--- NOTE | 2019-03-20 07:20 | EKG ---
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 Electronically Signed On 03-24-2019 9:16:21 CDT by Matteo Barbosa
[2019-03-20 07:24] LABS: BILIRUBIN,URINE NEGATIVE (NEG); CLARITY,URINE CLOUDY; COLOR,URINE YELLOW; NITRITE,URINE NEGATIVE (NEG); PH,URINE 7.5; PROTEIN,URINE >=300 mg/dL (NEG-TRACE); UROBILINOGEN,URINE 0.2 mg/dL (0.2 mg/dL)
[2019-03-20] MEDS ORDERED: hydrALAZINE 20 MG/ML VIAL. IVP ONE (07:30)
--- NOTE | 2019-03-20 07:30 | PHYS DOC ---
Past Medical History Past Medical History: CVA, Diabetes-Type II, Renal Disease, Renal Failure, Seizure, Other Past Surgical History: Other Additional Past Surgical Histo: Dialysis shunt R) upper arm being used, shunt in left arm-not used anymore. Alcohol Use: None Drug Use: None Adult General Chief Complaint Chief Complaint: TREMORS HPI HPI Patient is a 68 year old [f__sex] who presents with [] Review of Systems Review of Systems Constitutional: Denies fever or chills [] Eyes: Denies change in visual acuity, redness, or eye pain [] HENT: Denies nasal congestion or sore throat [] Respiratory: Denies cough or shortness of breath [] Cardiovascular: No additional information not addressed in HPI [] GI: Denies abdominal pain, nausea, vomiting, bloody stools or diarrhea [] : Denies dysuria or hematuria [] Musculoskeletal: Denies back pain or joint pain [] Integument: Denies rash or skin lesions [] Neurologic: Denies headache, focal weakness or sensory changes [] Endocrine: Denies polyuria or polydipsia [] All other systems were reviewed and found to be within normal limits, except as documented in this note. Current Medications Current Medications Current Medications Medications (Trade) Dose Ordered Sig/Yumiko Start Time Stop Time Status Last Admin Dose Admin Dextrose (Dextrose 50%-Water Syringe) 12.5 gm PRN Q15MIN PRN 03/20/19 08:15 Hydralazine HCl (Apresoline Inj) 20 mg 1X ONCE 03/20/19 07:30 03/20/19 07:31 DC 03/20/19 07:54 20 MG Insulin Human Lispro (HumaLOG) 0-5 UNITS TIDWMEALS 03/20/19 12:00 Lorazepam (Ativan) 0.5 mg 1X ONCE 03/20/19 08:00 03/20/19 08:01 DC 03/20/19 07:59 0.5 MG Ondansetron HCl (Zofran) 4 mg PRN Q8HRS PRN 03/20/19 08:15 03/21/19 08:14 Allergies Allergies Allergies Coded Allergies Type Severity Reaction Last Updated Verified No Known Drug Allergies 02/07/19 No Physical Exam Physical Exam Constitutional: Well developed, well nourished, no acute distress, non-toxic appearance. [] HENT: Normocephalic, atraumatic, bilateral external ears normal, oropharynx moist, no oral exudates, nose normal. [] Eyes: PERRLA, EOMI, conjunctiva normal, no discharge. [] Neck: Normal range of motion, no tenderness, supple, no stridor. [] Cardiovascular:Heart rate regular rhythm, no murmur [] Lungs & Thorax: Bilateral breath sounds clear to auscultation [] Abdomen: Bowel sounds normal, soft, no tenderness, no masses, no pulsatile masses. [] Skin: Warm, dry, no erythema, no rash. [] Back: No tenderness, no CVA tenderness. [] Extremities: No tenderness, no cyanosis, no clubbing, ROM intact, no edema. [] Neurologic: Alert and oriented X 3, normal motor function, normal sensory function, no focal deficits noted. [] Psychologic: Affect normal, judgement normal, mood normal. [] Current Patient Data Vital Signs Vital Signs Date Time Temp Pulse Resp B/P (MAP) Pulse Ox O2 Delivery O2 Flow Rate FiO2 03/20/19 07:54 99 188/81 03/20/19 06:30 98.8 18 86 Room Air 98.8 Lab Values Laboratory Tests Test 03/20/19 06:45 03/20/19 06:55 03/20/19 07:10 White Blood Count 6.2 x10^3/uL (4.0-11.0) Red Blood Count 3.57 x10^6/uL (3.50-5.40) Hemoglobin 10.8 g/dL (12.0-15.5) L Hematocrit 34.6 % (36.0-47.0) L Mean Corpuscular Volume 97 fL (79-100) Mean Corpuscular Hemoglobin 30 pg (25-35) Mean Corpuscular Hemoglobin Concent 31 g/dL (31-37) Red Cell Distribution Width 14.6 % (11.5-14.5) H Platelet Count 157 x10^3/uL (140-400) Neutrophils (%) (Auto) 59 % (31-73) Lymphocytes (%) (Auto) 29 % (24-48) Monocytes (%) (Auto) 8 % (0-9) Eosinophils (%) (Auto) 3 % (0-3) Basophils (%) (Auto) 1 % (0-3) Neutrophils # (Auto) 3.6 x10^3uL (1.8-7.7) Lymphocytes # (Auto) 1.8 x10^3/uL (1.0-4.8) Monocytes # (Auto) 0.5 x10^3/uL (0.0-1.1) Eosinophils # (Auto) 0.2 x10^3/uL (0.0-0.7) Basophils # (Auto) 0.1 x10^3/uL (0.0-0.2) Prothrombin Time 13.1 SEC (11.7-14.0) Prothrombin Time INR 1.0 (0.8-1.1) PTT 34 SEC (24-38) Sodium Level 143 mmol/L (136-145) Potassium Level 5.3 mmol/L (3.5-5.1) H Chloride Level 102 mmol/L (98-107) Carbon Dioxide Level 28 mmol/L (21-32) Anion Gap 13 (6-14) Blood Urea Nitrogen 73 mg/dL (7-20) H Creatinine 10.1 mg/dL (0.6-1.0) H Estimated GFR (Cockcroft-Gault) 4.6 BUN/Creatinine Ratio 7 (6-20) Glucose Level 135 mg/dL (70-99) H Calcium Level 9.5 mg/dL (8.5-10.1) Magnesium Level 2.0 mg/dL (1.8-2.4) Total Bilirubin 0.4 mg/dL (0.2-1.0) Aspartate Amino Transferase (AST) 18 U/L (15-37) Alanine Aminotransferase (ALT) 15 U/L (14-59) Alkaline Phosphatase 104 U/L (46-116) Creatine Kinase 80 U/L (26-192) Creatine Kinase MB (Mass) 1.3 ng/mL (0.0-3.6) Creatine Kinase MB Relative Index 1.6 % (0-4) Total Protein 7.4 g/dL (6.4-8.2) Albumin 3.1 g/dL (3.4-5.0) L Albumin/Globulin Ratio 0.7 (1.0-1.7) L Lactic Acid Level 0.6 mmol/L (0.4-2.0) Urine Collection Type U cath Urine Color Yellow Urine Clarity Cloudy Urine pH 7.5 Urine Specific [place] 1.010 Urine Protein >=300 mg/dL (NEG-TRACE) Urine Glucose (UA) Negative mg/dL (NEG) Urine Ketones (Stick) Negative mg/dL (NEG) Urine Blood Moderate (NEG) Urine Nitrite Negative (NEG) Urine Bilirubin Negative (NEG) Urine Urobilinogen Dipstick 0.2 mg/dL (0.2 mg/dL) Urine Leukocyte Esterase Large (NEG) Urine RBC Fobs /HPF (0-2) Urine WBC Tntc /HPF (0-4) Urine Transitional Epithelial Cells Few /LPF Urine Bacteria Many /HPF (0-FEW) Laboratory Tests 03/20/19 06:45 Laboratory Tests 03/20/19 06:45 EKG EKG @0727 NSR at 90bpm, NO ST elevation, Q wave in III, low voltage QRS Radiology/Procedures Radiology/Procedures PROCEDURE: CHEST AP ONLY Portable chest, 03/20/2019: HISTORY: Tremors and weakness Comparison is made to a study from 02/07/2019. The heart size and pulmonary vascularity are within normal limits. Vascular stents are projected over the right subclavian and innominate vein regions. There is mild unchanged elevation of the left hemidiaphragm. No acute infiltrate is seen. There is no evidence of pleural fluid. IMPRESSION: No acute cardiopulmonary abnormality is detected with no significant change since 02/07/2019. Electronically signed by: Moo Miranda MD (03/20/2019 7:36 AM) [facility] PROCEDURE: CT HEAD WO CONTRAST CT of the head without contrast, 03/20/2019: HISTORY: Altered mental status Comparison is made to a study from 01/15/2017. The study is partially compromised by patient motion artifact. There is an unchanged moderate-sized area of encephalomalacia in the right temporal parietal region compatible with an old infarct. There is mild cerebral atrophy. The ventricles are within normal limits in size. There is no shift of the midline structures. There is no evidence of acute intracranial hemorrhage or mass effect. There is calcific plaquing of the distal internal carotid and vertebral arteries. IMPRESSION: 1. Moderate-sized old right cerebral infarct. 2. No acute intracranial abnormality is detected. PQRS Compliance Statement: One or more of the following individualized dose reduction techniques were utilized for this examination: 1. Automated exposure control 2. Adjustment of the mA and/or kV according to patient size 3. Use of iterative reconstruction technique Electronically signed by: Moo Miranda MD (03/20/2019 8:13 AM) [facility] Course & Med Decision Making Course & Med Decision Making Pertinent Labs and Imaging studies reviewed. (See chart for details) [] Dragon Disclaimer Dragon Disclaimer This electronic medical record was generated, in whole or in part, using a voice recognition dictation system. Departure Departure Impression: Primary Impression: UTI (urinary tract infection) Additional Impressions: Tremulousness ESRD (end stage renal disease) Disposition: 09 ADMITTED INPATIENT Admitting Physician: Luca Lobo Condition: STABLE Referrals: LUCA LOBO MD (PCP) Problem Qualifiers Primary Impression: UTI (urinary tract infection) Urinary tract infection type: acute cystitis Hematuria presence: without hematuria Qualified Codes: N30.00 - Acute cystitis without hematuria INOCENCIO ELIZABETH DO Mar 20, 2019 07:30
[2019-03-20 07:35] LABS: RBC,URINE FOBS /HPF (0-2); WBC,URINE TNTC /HPF (0-4)
[2019-03-20 07:36] LABS: BACTERIA,URINE MANY /HPF (0-FEW)
--- NOTE | 2019-03-20 07:40 | RAD ---
Portable chest, 03/20/2019: HISTORY: Tremors and weakness Comparison is made to a study from 02/07/2019. The heart size and pulmonary vascularity are within normal limits. Vascular stents are projected over the right subclavian and innominate vein regions. There is mild unchanged elevation of the left hemidiaphragm. No acute infiltrate is seen. There is no evidence of pleural fluid. IMPRESSION: No acute cardiopulmonary abnormality is detected with no significant change since 02/07/2019. Electronically signed by: Moo Miranda MD (03/20/2019 7:36 AM) [facility]
[2019-03-20] MEDS ORDERED: DEXTROSE 50% 25 GM / 50ML DISP.SYRIN. IV PRN (08:15)
[2019-03-20] MEDS ORDERED: ONDANSETRON PF 4 MG/2 ML VIAL. IV PRN (08:15)
--- NOTE | 2019-03-20 08:16 | RAD ---
CT of the head without contrast, 03/20/2019: HISTORY: Altered mental status Comparison is made to a study from 01/15/2017. The study is partially compromised by patient motion artifact. There is an unchanged moderate-sized area of encephalomalacia in the right temporal parietal region compatible with an old infarct. There is mild cerebral atrophy. The ventricles are within normal limits in size. There is no shift of the midline structures. There is no evidence of acute intracranial hemorrhage or mass effect. There is calcific plaquing of the distal internal carotid and vertebral arteries. IMPRESSION: 1. Moderate-sized old right cerebral infarct. 2. No acute intracranial abnormality is detected. PQRS Compliance Statement: One or more of the following individualized dose reduction techniques were utilized for this examination: 1. Automated exposure control 2. Adjustment of the mA and/or kV according to patient size 3. Use of iterative reconstruction technique Electronically signed by: Moo Miranda MD (03/20/2019 8:13 AM) [facility]
--- NOTE | 2019-03-20 08:54 | EKG ---
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
[2019-03-20 10:00] VITALS: BP 167/83
--- NOTE | 2019-03-20 10:10 | PDOC ---
Provider Note Provider Note Pt seen.H&P dictated.#[id number]. CARMITA WALL MD Mar 20, 2019 10:10
[2019-03-20] MEDS ORDERED: levETIRAcetam 500 MG TABLET PO SCH (11:00)
--- NOTE | 2019-03-20 11:27 | HP ---
ADMIT DATE: 03/20/2019 PATIENT LOCATION: [facility] REASON FOR ADMISSION TO THE HOSPITAL: 1. Headache. 2. Seizure-like activity. HISTORY OF PRESENT ILLNESS: The patient is a 68-year-old female. The patient has a known history of previous stroke, left hemiparesis. She also has history of renal failure, on hemodialysis; on Keppra for seizures, has been pretty good control. The patient's family noticed that she was having headache on Wednesday. She did not go to dialysis. She was having shakiness in the right upper and lower extremity, was brought to the hospital today. CT head showed old stroke, no new stroke. Urine showed infection, was started on Rocephin, 1 antibiotic was given, was admitted to the hospital to get dialyzed and neurological evaluation. PAST MEDICAL HISTORY: The patient was in the hospital last month for breast abscess, I and D was done, oral antibiotics was given. Other medical history: Old stroke; diabetes; hypertension; end-stage renal disease, on dialysis, goes to dialysis on Wednesday, Wednesday and Wednesday; seizures; gluteal abscess. PAST SURGICAL HISTORY: AV shunt in both left and right arm, the right upper arm using for dialysis. ALLERGIES: No known drug allergies. MEDICATIONS AT HOME: The patient is on allopurinol 100 mg daily, Xanax 0.25 twice a day, Sensipar 30 mg daily, citalopram 10 mg daily, clonidine 0.1 three times a day, Plavix 75 mg daily, cyclobenzaprine 10 mg twice a day, gabapentin 300 mg at bedtime, hydrocodone 10/325 q. 6 p.r.n., Xopenex inhalers, Keppra 500 mg takes 2 tablets twice a day, Reglan 10 mg a.c. and at bedtime, Movantik 25 mg daily for constipation, senna 1 daily, simvastatin 40 mg daily, B complex daily, PhosLo 667 mg 3 tablets 3 times daily. PERSONAL HISTORY: No history of smoking, smoked long time back. Denies alcohol. Denies any street drugs. SOCIAL HISTORY: Lives at home, lives with her daughter and she is in wheelchair level activity. Goes to dialysis 3 times a week. REVIEW OF SYMPTOMS: Complains of headache. Denies any nausea, vomiting or diarrhea. Rest of the 14-system was reviewed and negative. PHYSICAL EXAMINATION: GENERAL: The patient is morbidly obese. The patient is not in any distress. Recognized me, knows my name. VITAL SIGNS: Temperature 98, pulse 90, respirations 16, blood pressure 190/79, 100% on 2 liters. HEENT: Head is atraumatic. Pupils are equal. Oral cavity: No congestion. NECK: Supple. Thyroid not enlarged. JVD not elevated. CHEST: Symmetrical. CARDIOVASCULAR: S1, S2. LUNGS: Clear to auscultation. No wheezing. ABDOMEN: Obese. No mass palpable. EXTERNAL GENITALIA: No Phillips. RECTAL: Deferred. EXTREMITIES: The patient has a healed scar in the gluteal, extremities. No edema. The patient has spastic paralysis on the left side, able to move right upper and right lower extremity. The patient has AV shunts in both upper extremities, good thrill is present, right upper arm using for dialysis. LABORATORY DATA: White count 6, hemoglobin 11, platelets 157. INR is 1.0. Electrolytes show sodium 143, potassium 5.3, chloride 102, bicarbonate 28, BUN 73, creatinine 10.1, glucose 135. Lactic acid 0.6, magnesium 2. LFTs normal. Urine shows large leukocyte esterase, many wbc. Chest x-ray negative. CT head shows old stroke, moderate size old right cerebral infarct. FINAL IMPRESSION: 1. Severe headache. 2. Tremor-like activity, right upper and lower extremity. 3. History of previous stroke with left hemiparesis. 4. On Keppra for seizures. 5. End-stage renal disease, on dialysis. 6. Urinary tract infection. 7. Morbidly obese. PLAN: At this time admit to hospital. After urine culture, start on Rocephin. Get dialyzed today; Wednesday, Wednesday, Wednesday as schedule. Neurology, see Dr. Nichole. Seizure precautions, Speech to see.CT head no new strokes. CARMITA WALL MD DR: EDIE/ayan JOB#: [id number] / [id number] HARLEEN
[2019-03-20] MEDS: HYDROcodone/APAP 5/325MG 1 TAB TABLET PO PRN ×2 (11:47→23:45)
[2019-03-20] MEDS: SENNOSIDES 8.6 MG TABLET PO SCH ×2 (11:49→21:00)
[2019-03-20] MEDS: FOLIC/VIT B COMP W-C (RENAL) TABLET. PO SCH (11:49)
[2019-03-20] MEDS: ALLOPURINOL 100 MG TABLET. PO SCH (11:49)
[2019-03-20] MEDS: CLOPIDOGREL BISULFATE 75 MG TABLET PO SCH (11:49)
[2019-03-20] MEDS: levETIRAcetam 500 MG TABLET PO SCH ×2 (11:50→21:00)
[2019-03-20] MEDS: METOCLOPRAMIDE 5 MG TABLET. PO SCH ×3 (11:50→20:59)
[2019-03-20] MEDS: CYCLOBENZAPRINE 10 MG TABLET. PO SCH ×2 (11:50→21:00)
[2019-03-20] MEDS: CITALOPRAM 10 MG TABLET. PO SCH (11:50)
[2019-03-20] MEDS: CALCIUM ACETATE 667 MG CAPSULE PO SCH ×2 (11:51→17:42)
[2019-03-20] MEDS: INSULIN LISPRO 300 UNITS/3 ML INSULN.PEN. SQ SCH ×2 (11:53→17:00)
[2019-03-20] MEDS: ALBUTEROL SULFATE 2.5 MG/3 ML NEBU. NEB SCH ×3 (12:00→19:26)
--- NOTE | 2019-03-20 12:15 | NUR ---
Wound Care Pt seen for wound care consultation, known to from previous admissions for a L perirectal/buttock abscess. Area is now closed, with pink, epithelialized skin in place. No other wounds noted on full skin inspection, pt repositioned onto L side with pillows, feet floated with pillows. POC discussed with ALE Maguire, including turn Q2 hours.
[2019-03-20] MEDS ORDERED: NON FORMULARY ITEM (Levalbuterol Tartrate (Xopenex Hfa) 2 PUFF) IH SCH (13:00)
[2019-03-20] MEDS ORDERED: IV NORMAL SALINE 1000ML BAG 1,000 ML IV PRN ×2 (13:30)
[2019-03-20] MEDS ORDERED: DIALYSIS PATIENT. MC PRN ×2 (14:15)
--- NOTE | 2019-03-20 15:05 | PDOC2 ---
NEUROLOGY CONSULT Date of Admission Date of Admission DATE: 03/20/19 TIME: 14:53 Reason for Consult Reason for Consult: Tremors, altered mental status Referring Physician Referring Physician: Dr. Lobo Source Source: Chart review, Patient History of Present Illness History of Present Illness The patient is a 68-year-old right-handed female brought in for shaking on the right side and altered mental status. I have seen her in the past for a right hemispheric stroke as well as for seizures, last visit over 6 years ago. She missed dialysis on Wednesday, 03/17, because she was not feeling well. Today family noticed these symptoms. The patient is currently on dialysis as I examine her. Past Medical History Cardiovascular: CHF, HTN, Other (deep vein thrombosis) Pulmonary: Asthma, Bronchitis, COPD, Other (sleep apnea) CENTRAL NERVOUS SYSTEM: CVA, Seizure GI: Constipation, GERD Psych: Anxiety, Depression Rheumatologic: Gout, Rheumatoid arthritis Renal/: Chronic renal failure (on dialysis) Endocrine: Diabetes, Hyperparathyroidism Past Surgical History Past Surgical History: Cholecystectomy, , Hysterectomy, Other (pannus removal, dialysis catheter placement) Family History Family History: No pertinent hx Social History Social History , quit smoking, no alcohol, lives at home Current Medications Current Medications Current Medications Hydralazine HCl (Apresoline Inj) 20 mg 1X ONCE IVP Last administered on 03/20/19at 07:54; Start 03/20/19 at 07:30; Stop 03/20/19 at 07:31; Status DC Lorazepam (Ativan) 0.5 mg 1X ONCE IV Last administered on 03/20/19at 07:59; Start 03/20/19 at 08:00; Stop 03/20/19 at 08:01; Status DC Ondansetron HCl (Zofran) 4 mg PRN Q8HRS PRN IV NAUSEA/VOMITING; Start 03/20/19 at 08:15; Stop 03/21/19 at 08:14 Insulin Human Lispro (HumaLOG) 0-5 UNITS TIDWMEALS SQ ; Start 03/20/19 at 12:00 Dextrose (Dextrose 50%-Water Syringe) 12.5 gm PRN Q15MIN PRN IV SEE COMMENTS; Start 03/20/19 at 08:15 Ceftriaxone Sodium (Rocephin) 1 gm Q24H IVP ; Start 03/20/19 at 11:00 Allopurinol (Zyloprim) 100 mg DAILY PO Last administered on 03/20/19at 11:49; Start 03/20/19 at 11:00 Alprazolam (Xanax) 0.25 mg PRN BID PRN PO ANXIETY / AGITATION; Start 03/20/19 at 10:15 Cinacalcet (Sensipar) 30 mg DAILY PO ; Start 03/20/19 at 11:00 Citalopram Hydrobromide (CeleXA) 10 mg DAILY PO Last administered on 03/20/19at 11:50; Start 03/20/19 at 11:00 Clonidine HCl (Catapres) 0.1 mg TID PO ; Start 03/20/19 at 14:00 Clopidogrel Bisulfate (Plavix) 75 mg DAILY PO Last administered on 03/20/19at 11:49; Start 03/20/19 at 11:00 Cyclobenzaprine HCl (Flexeril) 10 mg BID PO Last administered on 03/20/19at 11:50; Start 03/20/19 at 11:00 Gabapentin (Neurontin) 300 mg HS PO ; Start 03/20/19 at 21:00 Acetaminophen/ Hydrocodone Bitart (Lortab 5/325) 1 tab PRN Q6HRS PRN PO MODERATE PAIN Last administered on 03/20/19at 11:47; Start 03/20/19 at 10:15 Levetiracetam (Keppra) 500 mg BID PO ; Start 03/20/19 at 11:00; Stop 03/20/19 at 11:00; Status DC Metoclopramide HCl (Reglan) 2.5 mg QIDACHS PO Last administered on 03/20/19at 11:50; Start 03/20/19 at 11:30 Non-Formulary Medication (Levalbuterol Tartrate (Xopenex Hfa)) 2 puff QID IH ; Start 03/20/19 at 13:00; Status UNV Non-Formulary Medication (Naloxegol Oxalate (Movantik)) 25 mg DAILY PO ; Start 03/21/19 at 09:00; Status UNV Sennosides (Senna) 8.6 mg BID PO Last administered on 03/20/19at 11:49; Start 03/20/19 at 10:30 Simvastatin (Zocor) 40 mg QHS PO ; Start 03/20/19 at 21:00 Vitamin B Complex/ Vitamin C (Makayla-Britton) 1 tab DAILY PO Last administered on 03/20/19at 11:49; Start 03/20/19 at 11:00 Calcium Acetate (Phoslo) 2,001 mg TIDWMEALS PO Last administered on 03/20/19at 11:51; Start 03/20/19 at 12:00 Levetiracetam (Keppra) 1,000 mg BID PO Last administered on 03/20/19at 11:50; Start 03/20/19 at 11:00 Albuterol Sulfate (Ventolin Neb Soln) 2.5 mg RTQID NEB ; Start 03/20/19 at 12:00 Sodium Chloride 1,000 ml @ 1,000 mls/hr Q1H PRN IV hypotension; Start 03/20/19 at 13:30; Stop 03/20/19 at 19:29; Status UNV Sodium Chloride 1,000 ml @ 400 mls/hr Q2H30M PRN IV PATENCY; Start 03/20/19 at 13:30; Stop 03/21/19 at 01:29; Status UNV Info (PHARMACY MONITORING -- do not chart) 1 each PRN DAILY PRN MC SEE COMMENTS; Start 03/20/19 at 14:15; Status UNV Info (PHARMACY MONITORING -- do not chart) 1 each PRN DAILY PRN MC SEE COMMENTS; Start 03/20/19 at 14:15; Status UNV Active Scripts Active Augmentin 500-125 Tablet (Amoxicillin/Potassium Clav) 1 Each Tablet 1 Tab PO BID Reported [phoslo] 2,001 Mg PO TID Movantik (Naloxegol Oxalate) 25 Mg Tablet 25 Mg PO DAILY Xopenex Hfa (Levalbuterol Tartrate) 15 Gm Hfa.aer.ad 2 Puff IH QID Keppra (Levetiracetam) 500 Mg Tablet 1 Tab PO BID Vol-Care Rx Tablet (Vit B Cmplx 3/Fa/Vit C/Biotin) 1 Each Tablet 1 Each PO DAILY Clopidogrel (Clopidogrel Bisulfate) 75 Mg Tablet 1 Tab PO DAILY Alprazolam 0.25 Mg Tablet 1 Tab PO PRN BID PRN Celexa (Citalopram Hydrobromide) 10 Mg Tablet 1 Tab PO DAILY Allopurinol 100 Mg Tablet 1 Tab PO DAILY Sensipar (Cinacalcet Hcl) 30 Mg Tablet 1 Tab PO DAILY Simvastatin 40 Mg Tablet 1 Tab PO QHS Gabapentin (Gabapentin) 300 Mg Capsule 1 Cap PO HS Senna (Sennosides) 8.6 Mg Capsule 8.6 Mg PO BID Cyclobenzaprine Hcl 10 Mg Tablet 1 Tab PO BID Reglan (Metoclopramide Hcl) 10 Mg Tablet 5 Mg PO QIDACHS Clonidine Hcl 0.1 Mg Tablet 1 Tab PO TID Hydrocodone-Apap 5-325 (Hydrocodone Bit/Acetaminophen) 1 Each Tablet 1 Tab PO PRN Q6HRS PRN Allergies Allergies: Coded Allergies: No Known Drug Allergies (Unverified , 02/07/19) ROS Review of System Negative for fever, chills, weight loss, shortness of breath, chest pain, indigestion, hematochezia, melena, and dysuria. Full 14-point review of systems is negative. Physical Exam Physical Examination General: Well-developed, well-nourished black female in no acute distress, seen in dialysis HEENT: Normocephalic andatraumatic. Tympanic membranes clear.Temporal arteriespulsatile and nontender.Fundoscopic exam unremarkable Neck: Supple without bruit, no meningismus Musculoskeletal: Stability:see neurologic. Gait exam:see neurologic. Tone:see neurologic.Strength:see neurologic. Neurological: Mental Status:orientation, memory, attention span/concentration, language, fund of knowledge: Knows name of hospital, but not date or name of president. Speech is dysarthric. She is hesitant with naming. Cranial Nerves:Pupils equal and reactive to light, extraocular movements areintact, visual michael are full to confrontation. Facial sensation is normal. There is a left central facial weakness. Vestibulo-ocular reflex is intact. . All other cranial related problems are negative except as mentioned before.Reflexes:2+ and symmetric with flexor plantar responses. Motor:Left spastic hemiparesis, 2/5. Coordinat ion:Not cooperative. Gait:Not tested. Sensory:Normal pinprick, vibration, light touch, proprioception. Vitals VITALS Vital Signs Date Time Temp Pulse Resp B/P (MAP) Pulse Ox O2 Delivery O2 Flow Rate FiO2 03/20/19 11:47 100 Nasal Cannula 2.0 4/29/19 10:00 97.9 93 24 167/83 (111) 97.9 Labs Labs Laboratory Tests Test 03/20/19 06:45 03/20/19 06:55 03/20/19 07:10 03/20/19 11:28 White Blood Count 6.2 x10^3/uL (4.0-11.0) Red Blood Count 3.57 x10^6/uL (3.50-5.40) Hemoglobin 10.8 g/dL (12.0-15.5) Hematocrit 34.6 % (36.0-47.0) Mean Corpuscular Volume 97 fL (79-100) Mean Corpuscular Hemoglobin 30 pg (25-35) Mean Corpuscular Hemoglobin Concent 31 g/dL (31-37) Red Cell Distribution Width 14.6 % (11.5-14.5) Platelet Count 157 x10^3/uL (140-400) Neutrophils (%) (Auto) 59 % (31-73) Lymphocytes (%) (Auto) 29 % (24-48) Monocytes (%) (Auto) 8 % (0-9) Eosinophils (%) (Auto) 3 % (0-3) Basophils (%) (Auto) 1 % (0-3) Neutrophils # (Auto) 3.6 x10^3uL (1.8-7.7) Lymphocytes # (Auto) 1.8 x10^3/uL (1.0-4.8) Monocytes # (Auto) 0.5 x10^3/uL (0.0-1.1) Eosinophils # (Auto) 0.2 x10^3/uL (0.0-0.7) Basophils # (Auto) 0.1 x10^3/uL (0.0-0.2) Prothrombin Time 13.1 SEC (11.7-14.0) Prothromb Time International Ratio 1.0 (0.8-1.1) Activated Partial Thromboplast Time 34 SEC (24-38) Sodium Level 143 mmol/L (136-145) Potassium Level 5.3 mmol/L (3.5-5.1) Chloride Level 102 mmol/L (98-107) Carbon Dioxide Level 28 mmol/L (21-32) Anion Gap 13 (6-14) Blood Urea Nitrogen 73 mg/dL (7-20) Creatinine 10.1 mg/dL (0.6-1.0) Estimated GFR (Cockcroft-Gault) 4.6 BUN/Creatinine Ratio 7 (6-20) Glucose Level 135 mg/dL (70-99) Calcium Level 9.5 mg/dL (8.5-10.1) Magnesium Level 2.0 mg/dL (1.8-2.4) Total Bilirubin 0.4 mg/dL (0.2-1.0) Aspartate Amino Transf (AST/SGOT) 18 U/L (15-37) Alanine Aminotransferase (ALT/SGPT) 15 U/L (14-59) Alkaline Phosphatase 104 U/L (46-116) Creatine Kinase 80 U/L (26-192) Creatine Kinase MB (Mass) 1.3 ng/mL (0.0-3.6) Creatine Kinase MB Relative Index 1.6 % (0-4) Total Protein 7.4 g/dL (6.4-8.2) Albumin 3.1 g/dL (3.4-5.0) Albumin/Globulin Ratio 0.7 (1.0-1.7) Lactic Acid Level 0.6 mmol/L (0.4-2.0) Urine Collection Type U cath Urine Color Yellow Urine Clarity Cloudy Urine pH 7.5 Urine Specific [place] 1.010 Urine Protein >=300 mg/dL (NEG-TRACE) Urine Glucose (UA) Negative mg/dL (NEG) Urine Ketones (Stick) Negative mg/dL (NEG) Urine Blood Moderate (NEG) Urine Nitrite Negative (NEG) Urine Bilirubin Negative (NEG) Urine Urobilinogen Dipstick 0.2 mg/dL (0.2 mg/dL) Urine Leukocyte Esterase Large (NEG) Urine RBC Fobs /HPF (0-2) Urine WBC Tntc /HPF (0-4) Urine Transitional Epithelial Cells Few /LPF Urine Bacteria Many /HPF (0-FEW) Glucose (Fingerstick) 125 mg/dL (70-99) Test 03/20/19 13:10 Troponin I Quantitative 0.024 ng/mL (0.000-0.055) Laboratory Tests Test 03/20/19 06:45 03/20/19 06:55 03/20/19 07:10 03/20/19 11:28 White Blood Count 6.2 x10^3/uL (4.0-11.0) Red Blood Count 3.57 x10^6/uL (3.50-5.40) Hemoglobin 10.8 g/dL (12.0-15.5) Hematocrit 34.6 % (36.0-47.0) Mean Corpuscular Volume 97 fL (79-100) Mean Corpuscular Hemoglobin 30 pg (25-35) Mean Corpuscular Hemoglobin Concent 31 g/dL (31-37) Red Cell Distribution Width 14.6 % (11.5-14.5) Platelet Count 157 x10^3/uL (140-400) Neutrophils (%) (Auto) 59 % (31-73) Lymphocytes (%) (Auto) 29 % (24-48) Monocytes (%) (Auto) 8 % (0-9) Eosinophils (%) (Auto) 3 % (0-3) Basophils (%) (Auto) 1 % (0-3) Neutrophils # (Auto) 3.6 x10^3uL (1.8-7.7) Lymphocytes # (Auto) 1.8 x10^3/uL (1.0-4.8) Monocytes # (Auto) 0.5 x10^3/uL (0.0-1.1) Eosinophils # (Auto) 0.2 x10^3/uL (0.0-0.7) Basophils # (Auto) 0.1 x10^3/uL (0.0-0.2) Prothrombin Time 13.1 SEC (11.7-14.0) Prothromb Time International Ratio 1.0 (0.8-1.1) Activated Partial Thromboplast Time 34 SEC (24-38) Sodium Level 143 mmol/L (136-145) Potassium Level 5.3 mmol/L (3.5-5.1) Chloride Level 102 mmol/L (98-107) Carbon Dioxide Level 28 mmol/L (21-32) Anion Gap 13 (6-14) Blood Urea Nitrogen 73 mg/dL (7-20) Creatinine 10.1 mg/dL (0.6-1.0) Estimated GFR (Cockcroft-Gault) 4.6 BUN/Creatinine Ratio 7 (6-20) Glucose Level 135 mg/dL (70-99) Calcium Level 9.5 mg/dL (8.5-10.1) Magnesium Level 2.0 mg/dL (1.8-2.4) Total Bilirubin 0.4 mg/dL (0.2-1.0) Aspartate Amino Transf (AST/SGOT) 18 U/L (15-37) Alanine Aminotransferase (ALT/SGPT) 15 U/L (14-59) Alkaline Phosphatase 104 U/L (46-116) Creatine Kinase 80 U/L (26-192) Creatine Kinase MB (Mass) 1.3 ng/mL (0.0-3.6) Creatine Kinase MB Relative Index 1.6 % (0-4) Total Protein 7.4 g/dL (6.4-8.2) Albumin 3.1 g/dL (3.4-5.0) Albumin/Globulin Ratio 0.7 (1.0-1.7) Lactic Acid Level 0.6 mmol/L (0.4-2.0) Urine Collection Type U cath Urine Color Yellow Urine Clarity Cloudy Urine pH 7.5 Urine Specific [place] 1.010 Urine Protein >=300 mg/dL (NEG-TRACE) Urine Glucose (UA) Negative mg/dL (NEG) Urine Ketones (Stick) Negative mg/dL (NEG) Urine Blood Moderate (NEG) Urine Nitrite Negative (NEG) Urine Bilirubin Negative (NEG) Urine Urobilinogen Dipstick 0.2 mg/dL (0.2 mg/dL) Urine Leukocyte Esterase Large (NEG) Urine RBC Fobs /HPF (0-2) Urine WBC Tntc /HPF (0-4) Urine Transitional Epithelial Cells Few /LPF Urine Bacteria Many /HPF (0-FEW) Glucose (Fingerstick) 125 mg/dL (70-99) Test 03/20/19 13:10 Troponin I Quantitative 0.024 ng/mL (0.000-0.055) Images Images CT of the head without contrast, 03/20/2019: Comparison is made to a study from 01/15/2017. The study is partially compromised by patient motion artifact. There is an unchanged moderate-sized area of encephalomalacia in the right temporal parietal region compatible with an old infarct. There is mild cerebral atrophy. The ventricles are within normal limits in size. There is no shift of the midline structures. There is no evidence of acute intracranial hemorrhage or mass effect. There is calcific plaquing of the distal internal carotid and vertebral arteries. IMPRESSION: 1. Moderate-sized old right cerebral infarct. 2. No acute intracranial abnormality is detected. 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 History of epilepsy Recommendations: Continue levetiracetam Electrode cephalogram tomorrow unless she is improved with the dialysis today Check sedimentation rate Consider MRI of the brain, depending on her course. Hold on lumbar puncture. Thank for letting me help with the patient's care. PATRICIA SILVEIRA MD Mar 20, 2019 15:05
--- NOTE | 2019-03-20 15:12 | PDOC2 ---
CONSULT Date of Consult Date of Consult DATE: 03/20/19 TIME: 15:02 Reason for Consult Reason for Consult: ESRD Source Source: Chart review, Patient History of Present Illness Reason for Visit: The patient is a 68-year-old AA female. Has a known history of previous stroke, left hemiparesis , ESRD Her family noticed that she was having headache on Wednesday and she did not go to dialysis. She was having shakiness in the right upper and lower extremity, was brought to the hospital today. CT head showed old stroke, no new stroke. Urine showed infection, was started on Rocephin She was in the hospital last month for breast abscess, I and D was done Currently seen on Hd, tolerating well. Denies any complaints Past Medical History Cardiovascular: CHF, HTN, Hyperlipidemia CENTRAL NERVOUS SYSTEM: CVA, Seizure GI: Constipation, Other Heme/Onc: Anemia NOS Psych: Depression Musculoskeletal: Other Rheumatologic: Gout Renal/: Chronic renal failure, Other Endocrine: Diabetes, Hypothyroidism, Hyperparathyroidism, Osteopenia Past Surgical History Past Surgical History: Cholecystectomy, , Hysterectomy Family History Family History: Coronary Artery Disease, Hypertension, Kidney Disease Social History ALCOHOL: none Drugs: None Lives: with Family Current Problem List Problem List Problems Medical Problems: (1) ESRD (end stage renal disease) Status: Acute (2) Tremulousness Status: Acute (3) UTI (urinary tract infection) Status: Acute Current Medications Current Medications Current Medications Hydralazine HCl (Apresoline Inj) 20 mg 1X ONCE IVP Last administered on 03/20/19at 07:54; Start 03/20/19 at 07:30; Stop 03/20/19 at 07:31; Status DC Lorazepam (Ativan) 0.5 mg 1X ONCE IV Last administered on 03/20/19at 07:59; Start 03/20/19 at 08:00; Stop 03/20/19 at 08:01; Status DC Ondansetron HCl (Zofran) 4 mg PRN Q8HRS PRN IV NAUSEA/VOMITING; Start 03/20/19 at 08:15; Stop 03/21/19 at 08:14 Insulin Human Lispro (HumaLOG) 0-5 UNITS TIDWMEALS SQ ; Start 03/20/19 at 12:00 Dextrose (Dextrose 50%-Water Syringe) 12.5 gm PRN Q15MIN PRN IV SEE COMMENTS; Start 03/20/19 at 08:15 Ceftriaxone Sodium (Rocephin) 1 gm Q24H IVP ; Start 03/20/19 at 11:00 Allopurinol (Zyloprim) 100 mg DAILY PO Last administered on 03/20/19at 11:49; Start 03/20/19 at 11:00 Alprazolam (Xanax) 0.25 mg PRN BID PRN PO ANXIETY / AGITATION; Start 03/20/19 at 10:15 Cinacalcet (Sensipar) 30 mg DAILY PO ; Start 03/20/19 at 11:00 Citalopram Hydrobromide (CeleXA) 10 mg DAILY PO Last administered on 03/20/19at 11:50; Start 03/20/19 at 11:00 Clonidine HCl (Catapres) 0.1 mg TID PO ; Start 03/20/19 at 14:00 Clopidogrel Bisulfate (Plavix) 75 mg DAILY PO Last administered on 03/20/19at 11:49; Start 03/20/19 at 11:00 Cyclobenzaprine HCl (Flexeril) 10 mg BID PO Last administered on 03/20/19at 11:50; Start 03/20/19 at 11:00 Gabapentin (Neurontin) 300 mg HS PO ; Start 03/20/19 at 21:00 Acetaminophen/ Hydrocodone Bitart (Lortab 5/325) 1 tab PRN Q6HRS PRN PO MODERATE PAIN Last administered on 03/20/19at 11:47; Start 03/20/19 at 10:15 Levetiracetam (Keppra) 500 mg BID PO ; Start 03/20/19 at 11:00; Stop 03/20/19 at 11:00; Status DC Metoclopramide HCl (Reglan) 2.5 mg QIDACHS PO Last administered on 03/20/19at 11:50; Start 03/20/19 at 11:30 Non-Formulary Medication (Levalbuterol Tartrate (Xopenex Hfa)) 2 puff QID IH ; Start 03/20/19 at 13:00; Status UNV Non-Formulary Medication (Naloxegol Oxalate (Movantik)) 25 mg DAILY PO ; Start 03/21/19 at 09:00; Status UNV Sennosides (Senna) 8.6 mg BID PO Last administered on 03/20/19at 11:49; Start 03/20/19 at 10:30 Simvastatin (Zocor) 40 mg QHS PO ; Start 03/20/19 at 21:00 Vitamin B Complex/ Vitamin C (Makayla-Britton) 1 tab DAILY PO Last administered on 03/20/19at 11:49; Start 03/20/19 at 11:00 Calcium Acetate (Phoslo) 2,001 mg TIDWMEALS PO Last administered on 03/20/19at 11:51; Start 03/20/19 at 12:00 Levetiracetam (Keppra) 1,000 mg BID PO Last administered on 03/20/19at 11:50; Start 03/20/19 at 11:00 Albuterol Sulfate (Ventolin Neb Soln) 2.5 mg RTQID NEB ; Start 03/20/19 at 12:00 Sodium Chloride 1,000 ml @ 1,000 mls/hr Q1H PRN IV hypotension; Start 03/20/19 at 13:30; Stop 03/20/19 at 19:29; Status UNV Sodium Chloride 1,000 ml @ 400 mls/hr Q2H30M PRN IV PATENCY; Start 03/20/19 at 13:30; Stop 03/21/19 at 01:29; Status UNV Info (PHARMACY MONITORING -- do not chart) 1 each PRN DAILY PRN MC SEE COMMENTS; Start 03/20/19 at 14:15; Status UNV Info (PHARMACY MONITORING -- do not chart) 1 each PRN DAILY PRN MC SEE COMMENTS; Start 03/20/19 at 14:15; Status UNV Active Scripts Active Augmentin 500-125 Tablet (Amoxicillin/Potassium Clav) 1 Each Tablet 1 Tab PO BID Reported [phoslo] 2,001 Mg PO TID Movantik (Naloxegol Oxalate) 25 Mg Tablet 25 Mg PO DAILY Xopenex Hfa (Levalbuterol Tartrate) 15 Gm Hfa.aer.ad 2 Puff IH QID Keppra (Levetiracetam) 500 Mg Tablet 1 Tab PO BID Vol-Care Rx Tablet (Vit B Cmplx 3/Fa/Vit C/Biotin) 1 Each Tablet 1 Each PO DAILY Clopidogrel (Clopidogrel Bisulfate) 75 Mg Tablet 1 Tab PO DAILY Alprazolam 0.25 Mg Tablet 1 Tab PO PRN BID PRN Celexa (Citalopram Hydrobromide) 10 Mg Tablet 1 Tab PO DAILY Allopurinol 100 Mg Tablet 1 Tab PO DAILY Sensipar (Cinacalcet Hcl) 30 Mg Tablet 1 Tab PO DAILY Simvastatin 40 Mg Tablet 1 Tab PO QHS Gabapentin (Gabapentin) 300 Mg Capsule 1 Cap PO HS Senna (Sennosides) 8.6 Mg Capsule 8.6 Mg PO BID Cyclobenzaprine Hcl 10 Mg Tablet 1 Tab PO BID Reglan (Metoclopramide Hcl) 10 Mg Tablet 5 Mg PO QIDACHS Clonidine Hcl 0.1 Mg Tablet 1 Tab PO TID Hydrocodone-Apap 5-325 (Hydrocodone Bit/Acetaminophen) 1 Each Tablet 1 Tab PO PRN Q6HRS PRN Allergies Allergies: Coded Allergies: No Known Drug Allergies (Unverified , 02/07/19) ROS Review of System As per HPI Physical Exam Physical Exam GENERAL: morbidly obese. NAD HEENT: OM moist NECK: Supple. CARDIOVASCULAR: S1, S2. LUNGS: Clear to auscultation. Non labored ABDOMEN: Obese No Phillips. EXTREMITIES: healed scar in the gluteal, extremities. No edema. AV shunts in both upper extremities, right upper arm using for dialysis. 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 History of previous stroke with left hemiparesis. On Keppra for seizures. 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 Labs Labs Laboratory Tests Test 03/20/19 06:45 03/20/19 06:55 03/20/19 07:10 03/20/19 11:28 White Blood Count 6.2 x10^3/uL (4.0-11.0) Red Blood Count 3.57 x10^6/uL (3.50-5.40) Hemoglobin 10.8 g/dL (12.0-15.5) Hematocrit 34.6 % (36.0-47.0) Mean Corpuscular Volume 97 fL (79-100) Mean Corpuscular Hemoglobin 30 pg (25-35) Mean Corpuscular Hemoglobin Concent 31 g/dL (31-37) Red Cell Distribution Width 14.6 % (11.5-14.5) Platelet Count 157 x10^3/uL (140-400) Neutrophils (%) (Auto) 59 % (31-73) Lymphocytes (%) (Auto) 29 % (24-48) Monocytes (%) (Auto) 8 % (0-9) Eosinophils (%) (Auto) 3 % (0-3) Basophils (%) (Auto) 1 % (0-3) Neutrophils # (Auto) 3.6 x10^3uL (1.8-7.7) Lymphocytes # (Auto) 1.8 x10^3/uL (1.0-4.8) Monocytes # (Auto) 0.5 x10^3/uL (0.0-1.1) Eosinophils # (Auto) 0.2 x10^3/uL (0.0-0.7) Basophils # (Auto) 0.1 x10^3/uL (0.0-0.2) Prothrombin Time 13.1 SEC (11.7-14.0) Prothromb Time International Ratio 1.0 (0.8-1.1) Activated Partial Thromboplast Time 34 SEC (24-38) Sodium Level 143 mmol/L (136-145) Potassium Level 5.3 mmol/L (3.5-5.1) Chloride Level 102 mmol/L (98-107) Carbon Dioxide Level 28 mmol/L (21-32) Anion Gap 13 (6-14) Blood Urea Nitrogen 73 mg/dL (7-20) Creatinine 10.1 mg/dL (0.6-1.0) Estimated GFR (Cockcroft-Gault) 4.6 BUN/Creatinine Ratio 7 (6-20) Glucose Level 135 mg/dL (70-99) Calcium Level 9.5 mg/dL (8.5-10.1) Magnesium Level 2.0 mg/dL (1.8-2.4) Total Bilirubin 0.4 mg/dL (0.2-1.0) Aspartate Amino Transf (AST/SGOT) 18 U/L (15-37) Alanine Aminotransferase (ALT/SGPT) 15 U/L (14-59) Alkaline Phosphatase 104 U/L (46-116) Creatine Kinase 80 U/L (26-192) Creatine Kinase MB (Mass) 1.3 ng/mL (0.0-3.6) Creatine Kinase MB Relative Index 1.6 % (0-4) Total Protein 7.4 g/dL (6.4-8.2) Albumin 3.1 g/dL (3.4-5.0) Albumin/Globulin Ratio 0.7 (1.0-1.7) Lactic Acid Level 0.6 mmol/L (0.4-2.0) Urine Collection Type U cath Urine Color Yellow Urine Clarity Cloudy Urine pH 7.5 Urine Specific Bruner 1.010 Urine Protein >=300 mg/dL (NEG-TRACE) Urine Glucose (UA) Negative mg/dL (NEG) Urine Ketones (Stick) Negative mg/dL (NEG) Urine Blood Moderate (NEG) Urine Nitrite Negative (NEG) Urine Bilirubin Negative (NEG) Urine Urobilinogen Dipstick 0.2 mg/dL (0.2 mg/dL) Urine Leukocyte Esterase Large (NEG) Urine RBC Fobs /HPF (0-2) Urine WBC Tntc /HPF (0-4) Urine Transitional Epithelial Cells Few /LPF Urine Bacteria Many /HPF (0-FEW) Glucose (Fingerstick) 125 mg/dL (70-99) Test 03/20/19 13:10 Troponin I Quantitative 0.024 ng/mL (0.000-0.055) Laboratory Tests Test 03/20/19 06:45 03/20/19 06:55 03/20/19 07:10 03/20/19 11:28 White Blood Count 6.2 x10^3/uL (4.0-11.0) Red Blood Count 3.57 x10^6/uL (3.50-5.40) Hemoglobin 10.8 g/dL (12.0-15.5) Hematocrit 34.6 % (36.0-47.0) Mean Corpuscular Volume 97 fL (79-100) Mean Corpuscular Hemoglobin 30 pg (25-35) Mean Corpuscular Hemoglobin Concent 31 g/dL (31-37) Red Cell Distribution Width 14.6 % (11.5-14.5) Platelet Count 157 x10^3/uL (140-400) Neutrophils (%) (Auto) 59 % (31-73) Lymphocytes (%) (Auto) 29 % (24-48) Monocytes (%) (Auto) 8 % (0-9) Eosinophils (%) (Auto) 3 % (0-3) Basophils (%) (Auto) 1 % (0-3) Neutrophils # (Auto) 3.6 x10^3uL (1.8-7.7) Lymphocytes # (Auto) 1.8 x10^3/uL (1.0-4.8) Monocytes # (Auto) 0.5 x10^3/uL (0.0-1.1) Eosinophils # (Auto) 0.2 x10^3/uL (0.0-0.7) Basophils # (Auto) 0.1 x10^3/uL (0.0-0.2) Prothrombin Time 13.1 SEC (11.7-14.0) Prothromb Time International Ratio 1.0 (0.8-1.1) Activated Partial Thromboplast Time 34 SEC (24-38) Sodium Level 143 mmol/L (136-145) Potassium Level 5.3 mmol/L (3.5-5.1) Chloride Level 102 mmol/L (98-107) Carbon Dioxide Level 28 mmol/L (21-32) Anion Gap 13 (6-14) Blood Urea Nitrogen 73 mg/dL (7-20) Creatinine 10.1 mg/dL (0.6-1.0) Estimated GFR (Cockcroft-Gault) 4.6 BUN/Creatinine Ratio 7 (6-20) Glucose Level 135 mg/dL (70-99) Calcium Level 9.5 mg/dL (8.5-10.1) Magnesium Level 2.0 mg/dL (1.8-2.4) Total Bilirubin 0.4 mg/dL (0.2-1.0) Aspartate Amino Transf (AST/SGOT) 18 U/L (15-37) Alanine Aminotransferase (ALT/SGPT) 15 U/L (14-59) Alkaline Phosphatase 104 U/L (46-116) Creatine Kinase 80 U/L (26-192) Creatine Kinase MB (Mass) 1.3 ng/mL (0.0-3.6) Creatine Kinase MB Relative Index 1.6 % (0-4) Total Protein 7.4 g/dL (6.4-8.2) Albumin 3.1 g/dL (3.4-5.0) Albumin/Globulin Ratio 0.7 (1.0-1.7) Lactic Acid Level 0.6 mmol/L (0.4-2.0) Urine Collection Type U cath Urine Color Yellow Urine Clarity Cloudy Urine pH 7.5 Urine Specific Bruner 1.010 Urine Protein >=300 mg/dL (NEG-TRACE) Urine Glucose (UA) Negative mg/dL (NEG) Urine Ketones (Stick) Negative mg/dL (NEG) Urine Blood Moderate (NEG) Urine Nitrite Negative (NEG) Urine Bilirubin Negative (NEG) Urine Urobilinogen Dipstick 0.2 mg/dL (0.2 mg/dL) Urine Leukocyte Esterase Large (NEG) Urine RBC Fobs /HPF (0-2) Urine WBC Tntc /HPF (0-4) Urine Transitional Epithelial Cells Few /LPF Urine Bacteria Many /HPF (0-FEW) Glucose (Fingerstick) 125 mg/dL (70-99) Test 03/20/19 13:10 Troponin I Quantitative 0.024 ng/mL (0.000-0.055) Review All relevant outside records, renal labs, imaging studies, telemetry/EKG's were reviewed. LILI OCASIO MD Mar 20, 2019 15:12
[2019-03-20] MEDS: CINACALCET HCL 30 MG TABLET PO SCH (17:42)
[2019-03-20] MEDS: cefTRIAXone IV Push 1 GM VIAL. IVP SCH (17:43)
[2019-03-20] MEDS: cloNIDine HCL 0.1 MG TABLET PO SCH ×2 (17:43→21:00)
[2019-03-20 19:59] VITALS: BP 133/62
[2019-03-20] MEDS: SIMVASTATIN 40 MG TABLET. PO SCH (21:00)
[2019-03-20] MEDS: ALPRAZolam 0.25 MG TABLET PO PRN (21:00)
[2019-03-20] MEDS: GABAPENTIN 300 MG CAPSULE. PO SCH (21:00)
[2019-03-20 23:10] VITALS: BP 114/37
[2019-03-21] VITALS (7 sets, daily range): BP systolic 99–151; BP diastolic 46–70
[2019-03-21] MEDS: ALBUTEROL SULFATE 2.5 MG/3 ML NEBU. NEB SCH ×4 (07:28→19:55)
[2019-03-21] MEDS: INSULIN LISPRO 300 UNITS/3 ML INSULN.PEN. SQ SCH ×3 (08:00→17:00)
[2019-03-21] MEDS ORDERED: KETOROLAC 15 MG/ML VIAL. IV PRN (09:00)
[2019-03-21] MEDS ORDERED: PROCHLORPERAZINE 10 MG/2 ML VIAL. IV PRN (09:00)
[2019-03-21] MEDS ORDERED: diphenhydrAMINE 50 MG/ML VIAL IVP PRN (09:00)
[2019-03-21] MEDS ORDERED: NON FORMULARY ITEM (Naloxegol Oxalate (Movantik) 25 MG) PO SCH (09:00)
[2019-03-21] MEDS: CALCIUM ACETATE 667 MG CAPSULE PO SCH ×3 (09:48→17:00)
[2019-03-21] MEDS: levETIRAcetam 500 MG TABLET PO SCH ×2 (09:50→20:46)
[2019-03-21] MEDS: FOLIC/VIT B COMP W-C (RENAL) TABLET. PO SCH (09:51)
[2019-03-21] MEDS: CYCLOBENZAPRINE 10 MG TABLET. PO SCH ×2 (09:51→20:47)
[2019-03-21] MEDS: HYDROcodone/APAP 5/325MG 1 TAB TABLET PO PRN ×2 (09:52→20:49)
[2019-03-21] MEDS: SENNOSIDES 8.6 MG TABLET PO SCH ×2 (09:52→20:47)
[2019-03-21] MEDS: METOCLOPRAMIDE 5 MG TABLET. PO SCH ×4 (09:52→20:47)
[2019-03-21] MEDS: CITALOPRAM 10 MG TABLET. PO SCH (09:52)
[2019-03-21] MEDS: ALLOPURINOL 100 MG TABLET. PO SCH (09:52)
[2019-03-21] MEDS: CLOPIDOGREL BISULFATE 75 MG TABLET PO SCH (09:53)
[2019-03-21] MEDS: cloNIDine HCL 0.1 MG TABLET PO SCH ×3 (09:53→20:46)
--- NOTE | 2019-03-21 10:18 | PDOC ---
PROGRESS NOTES Subjective Subjective back to base line mental status Objective Objective Vital Signs Date Time Temp Pulse Resp B/P (MAP) Pulse Ox O2 Delivery O2 Flow Rate FiO2 03/21/19 09:53 84 126/63 03/21/19 09:52 96 Nasal Cannula 2.5 03/21/19 07:00 98.7 20 98.7 Intake and Output 03/21/19 07:00 Intake Total 1000 ml Output Total 0 ml Balance 1000 ml Intake Oral 1000 ml Output Urine Total 0 ml Physical Exam Abdomen: Normal bowel sounds, Soft Heart: Regular rate, Normal S1, Normal S2 Extremities: No clubbing General: Alert, Cooperative Lungs: Clear to auscultation MUSCULOSKELETAL: No deformity, No swelling Neuro: Normal speech Psych/Mental Status: Mental status NL Skin: No breakdown Diagnosis Problem List Problems Medical Problems: (1) ESRD (end stage renal disease) Status: Acute (2) Tremulousness Status: Acute (3) UTI (urinary tract infection) Status: Acute Assessment Assessment Problems Medical Problems: (1) ESRD (end stage renal disease) Status: Acute (2) Tremulousness Status: Acute (3) UTI (urinary tract infection) Status: Acute FINAL IMPRESSION: 1. Severe headache. 2. Tremor-like activity, right upper and lower extremity. 3. History of previous stroke with left hemiparesis. 4. On Keppra for seizures. 5. End-stage renal disease, on dialysis. 6. Urinary tract infection. 7. Morbidly obese. PLAN: EEG today Dialysis yesterday iv Rocephin for uti. labs ok. keppra for seizures At this time admit to hospital. After urine culture, start on Rocephin. Get dialysis today; Wednesday, Wednesday, Wednesday as schedule. Neurology, see Dr. Nichole. Seizure precautions, Speech to see. Plan Plan of Care Problems Medical Problems: (1) ESRD (end stage renal disease) Status: Acute (2) Tremulousness Status: Acute (3) UTI (urinary tract infection) Status: Acute Comment Review of Relevant I have reviewed the following items gabbi (where applicable) has been applied. Labs Laboratory Tests Test 03/20/19 11:28 03/20/19 13:10 03/20/19 15:58 03/20/19 17:25 Glucose (Fingerstick) 125 mg/dL (70-99) 107 mg/dL (70-99) Troponin I Quantitative 0.024 ng/mL (0.000-0.055) 0.035 ng/mL (0.000-0.055) Test 03/20/19 20:28 03/21/19 07:04 Glucose (Fingerstick) 127 mg/dL (70-99) 129 mg/dL (70-99) Medications Current Medications Albuterol Sulfate (Ventolin Neb Soln) 2.5 mg RTQID NEB Last administered on 03/20/19 19:26; Start 03/20/19 at 12:00 Allopurinol (Zyloprim) 100 mg DAILY PO Last administered on 03/21/19 09:52; Start 03/20/19 at 11:00 Calcium Acetate (Phoslo) 2,001 mg TIDWMEALS PO Last administered on 03/21/19 09:48; Start 03/20/19 at 12:00 Ceftriaxone Sodium (Rocephin) 1 gm Q24H IVP Last administered on 03/20/19 17:43; Start 03/20/19 at 11:00 Cinacalcet (Sensipar) 30 mg DAILY PO Last administered on 03/20/19 17:42; Start 03/20/19 at 11:00 Citalopram Hydrobromide (CeleXA) 10 mg DAILY PO Last administered on 03/21/19 09:52; Start 03/20/19 at 11:00 Clonidine HCl (Catapres) 0.1 mg TID PO Last administered on 03/21/19 09:53; Start 03/20/19 at 14:00 Clopidogrel Bisulfate (Plavix) 75 mg DAILY PO Last administered on 03/21/19 09:53; Start 03/20/19 at 11:00 Cyclobenzaprine HCl (Flexeril) 10 mg BID PO Last administered on 03/21/19 09:51; Start 03/20/19 at 11:00 Diphenhydramine HCl (Benadryl) 25 mg PRN Q6HRS PRN IVP ITCHING; Start 03/21/19 at 09:00 Gabapentin (Neurontin) 300 mg HS PO Last administered on 03/20/19at 21:00; Start 03/20/19 at 21:00 Info (PHARMACY MONITORING -- do not chart) 1 each PRN DAILY PRN MC SEE COMMENTS; Start 03/20/19 at 14:15 Info (PHARMACY MONITORING -- do not chart) 1 each PRN DAILY PRN MC SEE COMMENTS; Start 03/20/19 at 14:15; Status UNV Insulin Human Lispro (HumaLOG) 0-5 UNITS TIDWMEALS SQ ; Start 03/20/19 at 12:00 Ketorolac Tromethamine (Toradol 15mg Vial) 15 mg PRN Q6HRS PRN IV PAIN; Start 03/21/19 at 09:00; Stop 03/26/19 at 08:59 Levetiracetam (Keppra) 500 mg BID PO ; Start 03/20/19 at 11:00; Stop 03/20/19 at 11:00; Status DC Levetiracetam (Keppra) 1,000 mg BID PO Last administered on 03/21/19at 09:50; Start 03/20/19 at 11:00 Metoclopramide HCl (Reglan) 2.5 mg QIDACHS PO Last administered on 03/21/19at 09:52; Start 03/20/19 at 11:30 Non-Formulary Medication (Levalbuterol Tartrate (Xopenex Hfa)) 2 puff QID IH ; Start 03/20/19 at 13:00; Status UNV Non-Formulary Medication (Naloxegol Oxalate (Movantik)) 25 mg DAILY PO ; Start 03/21/19 at 09:00; Status UNV Prochlorperazine Edisylate (Compazine) 10 mg PRN Q6HRS PRN IV NAUSEA/VOMITING; Start 03/21/19 at 09:00 Sennosides (Senna) 8.6 mg BID PO Last administered on 03/21/19at 09:52; Start 03/20/19 at 10:30 Simvastatin (Zocor) 40 mg QHS PO Last administered on 03/20/19at 21:00; Start 03/20/19 at 21:00 Sodium Chloride 1,000 ml @ 400 mls/hr Q2H30M PRN IV PATENCY; Start 03/20/19 at 13:30; Stop 03/21/19 at 01:29; Status DC Sodium Chloride 1,000 ml @ 1,000 mls/hr Q1H PRN IV hypotension; Start 03/20/19 at 13:30; Stop 03/20/19 at 19:29; Status DC Vitamin B Complex/ Vitamin C (Makayla-Britton) 1 tab DAILY PO Last administered on 03/21/19at 09:51; Start 03/20/19 at 11:00 Vitals/I & O Vital Sign - Last 24 Hours 03/20/19 03/20/19 03/20/19 03/20/19 10:30 11:47 15:58 17:43 Pulse 93 B/P (MAP) 167/83 Pulse Ox 100 96 O2 Delivery Nasal Cannula Nasal Cannula Nasal Cannula O2 Flow Rate 3.0 2.0 2.0 03/20/19 03/20/19 03/20/19 03/20/19 19:29 19:59 20:00 21:00 Temp 98.5 98.5 Pulse 88 88 Resp 16 B/P (MAP) 133/62 (85) 133/62 Pulse Ox 93 98 O2 Delivery Room Air Nasal Cannula Nasal Cannula O2 Flow Rate 2.0 2.0 03/20/19 03/20/19 03/21/19 03/21/19 23:10 23:45 00:45 03:10 Temp 98.0 98.8 98.0 98.8 Pulse 88 85 Resp 18 18 18 B/P (MAP) 114/37 (62) 99/60 (73) Pulse Ox 97 98 98 97 O2 Delivery Nasal Cannula Nasal Cannula Nasal Cannula Nasal Cannula O2 Flow Rate 2.0 2.0 2.0 2.0 03/21/19 03/21/19 03/21/19 03/21/19 07:00 07:28 09:52 09:53 Temp 98.7 98.7 Pulse 84 84 Resp 20 B/P (MAP) 126/63 (84) 126/63 Pulse Ox 97 96 96 O2 Delivery Nasal Cannula Nasal Cannula Nasal Cannula O2 Flow Rate 2.0 2.5 2.5 Intake and Output 03/20/19 03/20/19 03/21/19 15:00 23:00 07:00 Intake Total 120 ml 480 ml 400 ml Output Total 0 ml Balance 120 ml 480 ml 400 ml CARMITA WALL MD Mar 21, 2019 10:18
--- NOTE | 2019-03-21 12:09 | PDOC ---
PROGRESS NOTES Assessment Problems Medical Problems: (1) ESRD (end stage renal disease) Status: Acute (2) Tremulousness Status: Acute (3) UTI (urinary tract infection) Status: Acute Metabolic encephalopathy, renal failure Headaches Myoclonus, resolved, negative EEG today, which does show evidence of encephalopathy, though Prior right middle cerebral artery stroke. History of epilepsy Plan Continue levetiracetam MRI of the brain with MRV and MRA. Migraine cocktail, ketorolac, diphenhydramine, prochlorperazine Hold on lumbar puncture. Subjective 08/01 headache pain score Objective Vital Signs Date Time Temp Pulse Resp B/P (MAP) Pulse Ox O2 Delivery O2 Flow Rate FiO2 03/21/19 11:00 97.6 73 20 118/46 (70) 100 Nasal Cannula 2.0 97.6 Intake and Output 03/21/19 07:00 Intake Total 1000 ml Output Total 0 ml Balance 1000 ml Intake Oral 1000 ml Output Urine Total 0 ml PHYSICAL EXAM Alert. Oriented to time, place and person. PERRL. EOMI. CN: Spastic dysarthria, left central facial weakness Muscle tone: increased on left. Muscle strength: 2/5 on left DTR: 2+ Plantar reflex: flexor Gait: not examined in bed. Sensory exam: no abnormal findings. No cerebellar signs elicited. Review of Relevant I have reviewed the following items gabbi (where applicable) has been applied. Labs Laboratory Tests Test 03/20/19 06:45 03/20/19 06:55 03/20/19 07:10 03/20/19 11:28 White Blood Count 6.2 x10^3/uL (4.0-11.0) Red Blood Count 3.57 x10^6/uL (3.50-5.40) Hemoglobin 10.8 g/dL (12.0-15.5) Hematocrit 34.6 % (36.0-47.0) Mean Corpuscular Volume 97 fL (79-100) Mean Corpuscular Hemoglobin 30 pg (25-35) Mean Corpuscular Hemoglobin Concent 31 g/dL (31-37) Red Cell Distribution Width 14.6 % (11.5-14.5) Platelet Count 157 x10^3/uL (140-400) Neutrophils (%) (Auto) 59 % (31-73) Lymphocytes (%) (Auto) 29 % (24-48) Monocytes (%) (Auto) 8 % (0-9) Eosinophils (%) (Auto) 3 % (0-3) Basophils (%) (Auto) 1 % (0-3) Neutrophils # (Auto) 3.6 x10^3uL (1.8-7.7) Lymphocytes # (Auto) 1.8 x10^3/uL (1.0-4.8) Monocytes # (Auto) 0.5 x10^3/uL (0.0-1.1) Eosinophils # (Auto) 0.2 x10^3/uL (0.0-0.7) Basophils # (Auto) 0.1 x10^3/uL (0.0-0.2) Prothrombin Time 13.1 SEC (11.7-14.0) Prothromb Time International Ratio 1.0 (0.8-1.1) Activated Partial Thromboplast Time 34 SEC (24-38) Sodium Level 143 mmol/L (136-145) Potassium Level 5.3 mmol/L (3.5-5.1) Chloride Level 102 mmol/L (98-107) Carbon Dioxide Level 28 mmol/L (21-32) Anion Gap 13 (6-14) Blood Urea Nitrogen 73 mg/dL (7-20) Creatinine 10.1 mg/dL (0.6-1.0) Estimated GFR (Cockcroft-Gault) 4.6 BUN/Creatinine Ratio 7 (6-20) Glucose Level 135 mg/dL (70-99) Calcium Level 9.5 mg/dL (8.5-10.1) Magnesium Level 2.0 mg/dL (1.8-2.4) Total Bilirubin 0.4 mg/dL (0.2-1.0) Aspartate Amino Transf (AST/SGOT) 18 U/L (15-37) Alanine Aminotransferase (ALT/SGPT) 15 U/L (14-59) Alkaline Phosphatase 104 U/L (46-116) Creatine Kinase 80 U/L (26-192) Creatine Kinase MB (Mass) 1.3 ng/mL (0.0-3.6) Creatine Kinase MB Relative Index 1.6 % (0-4) Total Protein 7.4 g/dL (6.4-8.2) Albumin 3.1 g/dL (3.4-5.0) Albumin/Globulin Ratio 0.7 (1.0-1.7) Lactic Acid Level 0.6 mmol/L (0.4-2.0) Urine Collection Type U cath Urine Color Yellow Urine Clarity Cloudy Urine pH 7.5 Urine Specific Chassell 1.010 Urine Protein >=300 mg/dL (NEG-TRACE) Urine Glucose (UA) Negative mg/dL (NEG) Urine Ketones (Stick) Negative mg/dL (NEG) Urine Blood Moderate (NEG) Urine Nitrite Negative (NEG) Urine Bilirubin Negative (NEG) Urine Urobilinogen Dipstick 0.2 mg/dL (0.2 mg/dL) Urine Leukocyte Esterase Large (NEG) Urine RBC Fobs /HPF (0-2) Urine WBC Tntc /HPF (0-4) Urine Transitional Epithelial Cells Few /LPF Urine Bacteria Many /HPF (0-FEW) Glucose (Fingerstick) 125 mg/dL (70-99) Test 03/20/19 13:10 03/20/19 15:58 03/20/19 17:25 03/20/19 20:28 Troponin I Quantitative 0.024 ng/mL (0.000-0.055) 0.035 ng/mL (0.000-0.055) Glucose (Fingerstick) 107 mg/dL (70-99) 127 mg/dL (70-99) Test 03/21/19 07:04 Glucose (Fingerstick) 129 mg/dL (70-99) Laboratory Tests Test 03/20/19 13:10 03/20/19 15:58 03/20/19 17:25 03/20/19 20:28 Troponin I Quantitative 0.024 ng/mL (0.000-0.055) 0.035 ng/mL (0.000-0.055) Glucose (Fingerstick) 107 mg/dL (70-99) 127 mg/dL (70-99) Test 03/21/19 07:04 Glucose (Fingerstick) 129 mg/dL (70-99) Medications Current Medications Hydralazine HCl (Apresoline Inj) 20 mg 1X ONCE IVP Last administered on 03/20/19at 07:54; Start 03/20/19 at 07:30; Stop 03/20/19 at 07:31; Status DC Lorazepam (Ativan) 0.5 mg 1X ONCE IV Last administered on 03/20/19 07:59; Start 03/20/19 at 08:00; Stop 03/20/19 at 08:01; Status DC Ondansetron HCl (Zofran) 4 mg PRN Q8HRS PRN IV NAUSEA/VOMITING; Start 03/20/19 at 08:15; Stop 03/21/19 at 08:14; Status DC Insulin Human Lispro (HumaLOG) 0-5 UNITS TIDWMEALS SQ ; Start 03/20/19 at 12:00 Dextrose (Dextrose 50%-Water Syringe) 12.5 gm PRN Q15MIN PRN IV SEE COMMENTS; Start 03/20/19 at 08:15 Ceftriaxone Sodium (Rocephin) 1 gm Q24H IVP Last administered on 03/20/19 17:43; Start 03/20/19 at 11:00; Stop 03/21/19 at 14:00 Allopurinol (Zyloprim) 100 mg DAILY PO Last administered on 03/21/19 09:52; Start 03/20/19 at 11:00 Alprazolam (Xanax) 0.25 mg PRN BID PRN PO ANXIETY / AGITATION Last administered on 03/20/19 21:00; Start 03/20/19 at 10:15 Cinacalcet (Sensipar) 30 mg DAILY PO Last administered on 03/20/19 17:42; Sta rt 03/20/19 at 11:00 Citalopram Hydrobromide (CeleXA) 10 mg DAILY PO Last administered on 03/21/19 09:52; Start 03/20/19 at 11:00 Clonidine HCl (Catapres) 0.1 mg TID PO Last administered on 03/21/19 09:53; Start 03/20/19 at 14:00 Clopidogrel Bisulfate (Plavix) 75 mg DAILY PO Last administered on 03/21/19 09:53; Start 03/20/19 at 11:00 Cyclobenzaprine HCl (Flexeril) 10 mg BID PO Last administered on 03/21/19 09:51; Start 03/20/19 at 11:00 Gabapentin (Neurontin) 300 mg HS PO Last administered on 03/20/19at 21:00; Start 03/20/19 at 21:00 Acetaminophen/ Hydrocodone Bitart (Lortab 5/325) 1 tab PRN Q6HRS PRN PO MODERATE PAIN Last administered on 03/21/19 09:52; Start 03/20/19 at 10:15 Levetiracetam (Keppra) 500 mg BID PO ; Start 03/20/19 at 11:00; Stop 03/20/19 at 11:00; Status DC Metoclopramide HCl (Reglan) 2.5 mg QIDACHS PO Last administered on 03/21/19 09:52; Start 03/20/19 at 11:30 Non-Formulary Medication (Levalbuterol Tartrate (Xopenex Hfa)) 2 puff QID IH ; Start 03/20/19 at 13:00; Status UNV Non-Formulary Medication (Naloxegol Oxalate (Movantik)) 25 mg DAILY PO ; Start 03/21/19 at 09:00; Status UNV Sennosides (Senna) 8.6 mg BID PO Last administered on 03/21/19 09:52; Start 03/20/19 at 10:30 Simvastatin (Zocor) 40 mg QHS PO Last administered on 03/20/19 21:00; Start 03/20/19 at 21:00 Vitamin B Complex/ Vitamin C (Makayla-Britton) 1 tab DAILY PO Last administered on 03/21/19 09:51; Start 03/20/19 at 11:00 Calcium Acetate (Phoslo) 2,001 mg TIDWMEALS PO Last administered on 03/21/19 09:48; Start 03/20/19 at 12:00 Levetiracetam (Keppra) 1,000 mg BID PO Last administered on 03/21/19 09:50; Start 03/20/19 at 11:00 Albuterol Sulfate (Ventolin Neb Soln) 2.5 mg RTQID NEB Last administered on 03/20/19 19:26; Start 03/20/19 at 12:00 Sodium Chloride 1,000 ml @ 1,000 mls/hr Q1H PRN IV hypotension; Start 03/20/19 at 13:30; Stop 03/20/19 at 19:29; Status DC Sodium Chloride 1,000 ml @ 400 mls/hr Q2H30M PRN IV PATENCY; Start 03/20/19 at 13:30; Stop 03/21/19 at 01:29; Status DC Info (PHARMACY MONITORING -- do not chart) 1 each PRN DAILY PRN MC SEE COMMENTS; Start 03/20/19 at 14:15; Status UNV Info (PHARMACY MONITORING -- do not chart) 1 each PRN DAILY PRN MC SEE COMMENTS; Start 03/20/19 at 14:15 Ketorolac Tromethamine (Toradol 15mg Vial) 15 mg PRN Q6HRS PRN IV PAIN; Start 03/21/19 at 09:00; Stop 03/26/19 at 08:59 Diphenhydramine HCl (Benadryl) 25 mg PRN Q6HRS PRN IVP ITCHING; Start 03/21/19 at 09:00 Prochlorperazine Edisylate (Compazine) 10 mg PRN Q6HRS PRN IV NAUSEA/VOMITING; Start 03/21/19 at 09:00 Cephalexin HCl (Keflex) 500 mg BID PO ; Start 03/21/19 at 21:00 Active Scripts Active Augmentin 500-125 Tablet (Amoxicillin/Potassium Clav) 1 Each Tablet 1 Tab PO BID Reported [phoslo] 2,001 Mg PO TID Movantik (Naloxegol Oxalate) 25 Mg Tablet 25 Mg PO DAILY Xopenex Hfa (Levalbuterol Tartrate) 15 Gm Hfa.aer.ad 2 Puff IH QID Keppra (Levetiracetam) 500 Mg Tablet 1 Tab PO BID Vol-Care Rx Tablet (Vit B Cmplx 3/Fa/Vit C/Biotin) 1 Each Tablet 1 Each PO DAILY Clopidogrel (Clopidogrel Bisulfate) 75 Mg Tablet 1 Tab PO DAILY Alprazolam 0.25 Mg Tablet 1 Tab PO PRN BID PRN Celexa (Citalopram Hydrobromide) 10 Mg Tablet 1 Tab PO DAILY Allopurinol 100 Mg Tablet 1 Tab PO DAILY Sensipar (Cinacalcet Hcl) 30 Mg Tablet 1 Tab PO DAILY Simvastatin 40 Mg Tablet 1 Tab PO QHS Gabapentin (Gabapentin) 300 Mg Capsule 1 Cap PO HS Senna (Sennosides) 8.6 Mg Capsule 8.6 Mg PO BID Cyclobenzaprine Hcl 10 Mg Tablet 1 Tab PO BID Reglan (Metoclopramide Hcl) 10 Mg Tablet 5 Mg PO QIDACHS Clonidine Hcl 0.1 Mg Tablet 1 Tab PO TID Hydrocodone-Apap 5-325 (Hydrocodone Bit/Acetaminophen) 1 Each Tablet 1 Tab PO PRN Q6HRS PRN Vitals/I & O Vital Sign - Last 24 Hours 03/20/19 03/20/19 03/20/19 03/20/19 15:58 17:43 19:29 19:59 Temp 98.5 98.5 Pulse 93 88 Resp 16 B/P (MAP) 167/83 133/62 (85) Pulse Ox 96 93 98 O2 Delivery Nasal Cannula Room Air Nasal Cannula O2 Flow Rate 2.0 2.0 03/20/19 03/20/19 03/20/19 03/20/19 20:00 21:00 23:10 23:45 Temp 98.0 98.0 Pulse 88 88 Resp 18 18 B/P (MAP) 133/62 114/37 (62) Pulse Ox 97 98 O2 Delivery Nasal Cannula Nasal Cannula Nasal Cannula O2 Flow Rate 2.0 2.0 2.0 03/21/19 03/21/19 03/21/19 03/21/19 00:45 03:10 07:00 07:28 Temp 98.8 98.7 98.8 98.7 Pulse 85 84 Resp 18 20 B/P (MAP) 99/60 (73) 126/63 (84) Pulse Ox 98 97 97 96 O2 Delivery Nasal Cannula Nasal Cannula Nasal Cannula Nasal Cannula O2 Flow Rate 2.0 2.0 2.0 2.5 03/21/19 03/21/19 03/21/19 03/21/19 08:00 09:52 09:53 11:00 Temp 97.6 97.6 Pulse 84 73 Resp 20 B/P (MAP) 126/63 118/46 (70) Pulse Ox 96 100 O2 Delivery Nasal Cannula Nasal Cannula Nasal Cannula O2 Flow Rate 2.5 2.5 2.0 Intake and Output 03/20/19 03/20/19 03/21/19 15:00 23:00 07:00 Intake Total 120 ml 480 ml 400 ml Output Total 0 ml Balance 120 ml 480 ml 400 ml Images EEG shows mild slowing of background, no epileptic activity PATRICIA SILVEIRA MD Mar 21, 2019 12:09
--- NOTE | 2019-03-21 12:52 | EEG ---
DATE OF SERVICE: 03/21/2019 OBJECTIVE: The patient is a 68-year-old female with episodes of myoclonus, rule out seizures. DESCRIPTION: This is a digital study. Electrodes are placed according to the international 10-20 system. Bipolar and referential montages are available. Activation procedures typically include hyperventilation and intermittent photic stimulation. INTERPRETATION: The waking background consists of 6-7 Hz, 20-50 microvolt activity, symmetrically distributed over parietooccipital regions and reactive to eye opening. The patient slept through much of the recording with normal patterns, stage 1 and 2 sleep. She is poorly cooperative with hyperventilation, but it is noncontributory as is intermittent photic stimulation. IMPRESSION: This electroencephalogram with the patient awake and asleep is abnormal because of a mild, diffuse disturbance of cerebral activity consistent with any of a variety of toxic or metabolic encephalopathies. There is no focal, paroxysmal, or epileptiform activity. Thank you for letting us help with the patient's care. PATRICIA SILVEIRA MD DR: IVANA/ayan JOB#: [id number] / [id number] CARMITA Hernandez MD
--- NOTE | 2019-03-21 13:10 | RAD ---
MRI Brain without contrast History:Severe headaches Technique: Multiplanar, multisequential noncontrast MR imaging was performed of the brain. Comparison: June 23, 2013 Findings: There is severe motion degradation. There is no evidence of recent infarct. There is no intra-axial mass effect or midline shift. There is again large area of encephalomalacia of right parietal temporal lobes with associated gliosis signified by T2 and FLAIR hyperintense signal. Other mild T2 and FLAIR hyperintense signal of the supratentorial parenchyma bilaterally may be somewhat greater although poorly characterized due to motion. There is now focus of volume loss compatible with old infarct of the left cerebellum, new since previous exam. There is preservation of the major arterial intracranial flow voids at the skull base. There is likely disconjugate gaze. Paranasal sinuses are aerated. Mastoid air cells are overall aerated. Ventricular size is stable, within normal limits. Pituitary gland is again small in size. There is nonspecific heterogeneity of the marrow of the clivus as seen previously. Impression: 1. Exam is degraded by severe motion. There is no evidence of recent infarct or new intracranial mass effect. Old left cerebellar infarct has developed since 2013 exam. There is again large old infarct with cortical involvement of the right parietal temporal lobes with associated gliosis. There is other probable mild T2 and FLAIR hyperintense signal which may be due to chronic microvascular ischemic disease. Electronically signed by: Dhiraj Gonzalez MD (03/21/2019 1:06 PM) [id number]
--- NOTE | 2019-03-21 13:49 | RAD ---
MRA Brain History: Left hand weakness and speech difficulty, lethargy Technique: 3-D [id number] MR angiography was performed of the brain. Comparison: None Findings: Determination of any degree of stenosis is based on NASCET criteria. There is motion degradation. Both vertebral arteries constitute the basilar artery. There is visualization of segments of left PICA, right PICA not well-visualized on this motion degraded exam. There is visualization of segments of right AICA, not seen on the left. There is visualization of segments of bilateral superior cerebellar arteries. There are small patent posterior communicating arteries bilaterally. There is visualization of the internal carotid arteries bilaterally at the skull base. No significant anterior communicating artery is visualized. There is possible more significant stenosis of the anterior genu of the right cavernous internal carotid artery with greater than 75% luminal diameter reduction, although poorly characterized due to motion. No significant intracranial aneurysm is identified. Impression: 1. Exam is degraded by motion. There is probable more focal significant stenosis of the anterior genu of the right cavernous internal carotid artery, although accurate characterization limited due to motion. Electronically signed by: Dhiraj Gonzalez MD (03/21/2019 1:46 PM) [id number]
[2019-03-21] MEDS: cefTRIAXone IV Push 1 GM VIAL. IVP SCH (13:53)
--- NOTE | 2019-03-21 14:02 | RAD ---
MR venogram head without contrast History: Left hand weakness and speech difficulty, lethargy Technique: [id number] MR venography was performed of the head. Comparison: Noncontrast MR brain performed at the same time Findings: There is some motion degradation. No convincing occlusive venous thrombus is identified, limited accurate characterization for smaller areas of nonocclusive thrombus given motion degradation. Straight sinus is drained by the left transverse sinus and superior sagittal sinus is primarily drained from the right transverse venous sinus. Impression: 1. No convincing occlusive venous thrombus is identified, limited evaluation for smaller areas of nonocclusive thrombus given motion. Electronically signed by: Dhiraj Gonzalez MD (03/21/2019 1:59 PM) [id number]
[2019-03-21] MEDS: CINACALCET HCL 30 MG TABLET PO SCH (18:08)
--- NOTE | 2019-03-21 20:45 | PDOC ---
SUBJECTIVE ROS Stable OBJECTIVE Vital Signs Vital Signs Date Time Temp Pulse Resp B/P (MAP) Pulse Ox O2 Delivery O2 Flow Rate FiO2 03/21/19 19:58 100 Nasal Cannula 2.5 03/21/19 15:00 97.9 73 20 127/58 (81) 97.9 I & 0 Intake and Output 03/21/19 07:00 Intake Total 1000 ml Output Total 0 ml Balance 1000 ml Intake Oral 1000 ml Output Urine Total 0 ml PHYSICAL EXAM Physical Exam GENERAL: morbidly obese. NAD HEENT: OM moist NECK: Supple. CARDIOVASCULAR: S1, S2. LUNGS: Clear to auscultation. Non labored ABDOMEN: Obese No Phillips. EXTREMITIES: healed scar in the gluteal, extremities. No edema. AV shunts in both upper extremities, right upper arm using for dialysis. 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 DIAGNOSIS/ASSESSMENT Assessment & Plan ESRD- On HD MWF No indication for HD today Severe headache- Neuro following Anemia- Hgb stable, No indication for ZARINA Tremor-like activity, right upper and lower extremity. History of previous stroke with left hemiparesis. On Keppra for seizures. 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 COMMENT/RELEVANT DATA Meds Current Medications Medications (Trade) Dose Ordered Sig/Yumiko Start Time Stop Time Status Last Admin Dose Admin Acetaminophen/ Hydrocodone Bitart (Lortab 5/325) 1 tab PRN Q6HRS PRN 03/20/19 10:15 03/21/19 09:52 1 TAB Albuterol Sulfate (Ventolin Neb Soln) 2.5 mg RTQID 03/20/19 12:00 03/21/19 19:55 2.5 MG Allopurinol (Zyloprim) 100 mg DAILY 03/20/19 11:00 03/21/19 09:52 100 MG Alprazolam (Xanax) 0.25 mg PRN BID PRN 03/20/19 10:15 03/20/19 21:00 0.25 MG Calcium Acetate (Phoslo) 2,001 mg TIDWMEALS 03/20/19 12:00 03/21/19 17:00 2,001 MG Ceftriaxone Sodium (Rocephin) 1 gm Q24H 03/20/19 11:00 03/21/19 14:00 DC 03/21/19 13:53 1 GM Cephalexin HCl (Keflex) 500 mg QHS 03/21/19 21:00 Cinacalcet (Sensipar) 30 mg DAILY 03/20/19 11:00 03/21/19 18:08 30 MG Citalopram Hydrobromide (CeleXA) 10 mg DAILY 03/20/19 11:00 03/21/19 09:52 10 MG Clonidine HCl (Catapres) 0.1 mg TID 03/20/19 14:00 03/21/19 09:53 0.1 MG Clopidogrel Bisulfate (Plavix) 75 mg DAILY 03/20/19 11:00 03/21/19 09:53 75 MG Cyclobenzaprine HCl (Flexeril) 10 mg BID 03/20/19 11:00 03/21/19 09:51 10 MG Dextrose (Dextrose 50%-Water Syringe) 12.5 gm PRN Q15MIN PRN 03/20/19 08:15 Diphenhydramine HCl (Benadryl) 25 mg PRN Q6HRS PRN 03/21/19 09:00 Gabapentin (Neurontin) 300 mg HS 03/20/19 21:00 03/20/19 21:00 300 MG Hydralazine HCl (Apresoline Inj) 20 mg 1X ONCE 03/20/19 07:30 03/20/19 07:31 DC 03/20/19 07:54 20 MG Info (PHARMACY MONITORING -- do not chart) 1 each PRN DAILY PRN 03/20/19 14:15 Insulin Human Lispro (HumaLOG) 0-5 UNITS TIDWMEALS 03/20/19 12:00 03/21/19 17:00 3 UNITS Ketorolac Tromethamine (Toradol 15mg Vial) 15 mg PRN Q6HRS PRN 03/21/19 09:00 03/26/19 08:59 Lactobacillus Rhamnosus (Culturelle) 1 cap BID 03/21/19 21:00 Levetiracetam (Keppra) 1,000 mg BID 03/20/19 11:00 03/21/19 09:50 1,000 MG Lorazepam (Ativan) 0.5 mg 1X ONCE 03/20/19 08:00 03/20/19 08:01 DC 03/20/19 07:59 0.5 MG Metoclopramide HCl (Reglan) 2.5 mg QIDACHS 03/20/19 11:30 03/21/19 16:30 2.5 MG Non-Formulary Medication (Levalbuterol Tartrate (Xopenex Hfa)) 2 puff QID 03/20/19 13:00 UNV Non-Formulary Medication (Naloxegol Oxalate (Movantik)) 25 mg DAILY 03/21/19 09:00 UNV Ondansetron HCl (Zofran) 4 mg PRN Q8HRS PRN 03/20/19 08:15 03/21/19 08:14 DC Prochlorperazine Edisylate (Compazine) 10 mg PRN Q6HRS PRN 03/21/19 09:00 Sennosides (Senna) 8.6 mg BID 03/20/19 10:30 03/21/19 09:52 8.6 MG Simvastatin (Zocor) 40 mg QHS 03/20/19 21:00 03/20/19 21:00 40 MG Sodium Chloride 1,000 ml @ 400 mls/hr Q2H30M PRN 03/20/19 13:30 03/21/19 01:29 DC Vitamin B Complex/ Vitamin C (Maakyla-Britton) 1 tab DAILY 03/20/19 11:00 03/21/19 09:51 1 TAB Lab Laboratory Tests Test 03/21/19 07:04 03/21/19 09:00 03/21/19 11:31 03/21/19 16:49 Glucose (Fingerstick) 129 mg/dL (70-99) 191 mg/dL (70-99) 217 mg/dL (70-99) Erythrocyte Sedimentation Rate 63 (0-25) Results All relevant outside records, renal labs, imaging studies, telemetry/EKG's were reviewed. LILI OCASIO MD Mar 21, 2019 20:45
[2019-03-21] MEDS: CEPHALEXIN 250 MG CAPSULE. PO SCH (20:46)
[2019-03-21] MEDS: SIMVASTATIN 40 MG TABLET. PO SCH (20:46)
[2019-03-21] MEDS: GABAPENTIN 300 MG CAPSULE. PO SCH (20:47)
[2019-03-21] MEDS: LACTOBACILLUS RHAMNOSUS GG 1 CAPSULE. PO SCH (20:47)
[2019-03-21] MEDS: ALPRAZolam 0.25 MG TABLET PO PRN (20:49)
[2019-03-21] MEDS ORDERED: CEPHALEXIN 250 MG CAPSULE. PO SCH (21:00)
[2019-03-22 03:00] VITALS: BP 140/70
[2019-03-22] MEDS: ALBUTEROL SULFATE 2.5 MG/3 ML NEBU. NEB SCH ×4 (07:11→20:45)
--- NOTE | 2019-03-22 07:27 | NUR ---
MARKUS IS SLEEPING . SHE AROUSES TO NAME BUT RESUMES SLEEP EASILY. SHE IS ON HER WAY TO DIALYSIS PER BED. [employer] IS MONITORING AND MANAGING TELEMETRY
[2019-03-22] MEDS: METOCLOPRAMIDE 5 MG TABLET. PO SCH ×4 (07:30→20:31)
[2019-03-22] MEDS: INSULIN LISPRO 300 UNITS/3 ML INSULN.PEN. SQ SCH ×3 (08:00→17:00)
[2019-03-22] MEDS: CALCIUM ACETATE 667 MG CAPSULE PO SCH ×3 (08:00→17:46)
[2019-03-22] MEDS ORDERED: IV NORMAL SALINE 1000ML BAG 1,000 ML IV PRN ×2 (08:24)
[2019-03-22] MEDS ORDERED: DIALYSIS PATIENT. MC PRN ×2 (08:30)
[2019-03-22] MEDS ORDERED: diphenhydrAMINE 50 MG/ML VIAL IV PRN ×2 (08:30)
[2019-03-22] MEDS: cloNIDine HCL 0.1 MG TABLET PO SCH ×3 (09:00→20:31)
--- NOTE | 2019-03-22 10:07 | NUR ---
SPOKE WITH DAUGHTER REGARDING PROGRESS AND ANSWERED QUESTIONS
--- NOTE | 2019-03-22 10:09 | PDOC ---
PROGRESS NOTES Subjective Subjective PSVt last night for 30 sec, apneic episode at that time, as per RN Objective Objective Vital Signs Date Time Temp Pulse Resp B/P (MAP) Pulse Ox O2 Delivery O2 Flow Rate FiO2 03/22/19 07:22 Nasal Cannula 3.0 03/22/19 07:12 100 03/22/19 03:00 98.2 85 20 140/70 (93) 98.2 Intake and Output 03/22/19 07:00 Intake Total 680 ml Output Total 0 ml Balance 680 ml Intake Oral 680 ml Output Urine Total 0 ml Physical Exam Abdomen: Normal bowel sounds, Soft Heart: Regular rate, Normal S1, Normal S2 Extremities: No clubbing General: Alert, Cooperative Lungs: Clear to auscultation MUSCULOSKELETAL: No deformity, No swelling Neuro: Normal speech Psych/Mental Status: Mental status NL Skin: No breakdown Diagnosis Problem List Problems Medical Problems: (1) ESRD (end stage renal disease) Status: Acute (2) Tremulousness Status: Acute (3) UTI (urinary tract infection) Status: Acute Assessment Assessment Problems Medical Problems: (1) ESRD (end stage renal disease) Status: Acute (2) Tremulousness Status: Acute (3) UTI (urinary tract infection) Status: Acute FINAL IMPRESSION: PSVT Sleep apnea 1. Severe headache. 2. Tremor-like activity, right upper and lower extremity. 3. History of previous stroke with left hemiparesis. 4. On Keppra for seizures. 5. End-stage renal disease, on dialysis. 6. Urinary tract infection. 7. Morbidly obese. PLAN: ECHO ,cardiology consult. Needs CPAP for home , pul consult EEG neg for seizure activity Dialysis today iv Rocephin for uti. labs ok. keppra for seizures MRI and MRA showed old cva ,no new cva home tomorrow? At this time admit to hospital. After urine culture, start on Rocephin. Get dialysis today; Wednesday, Wednesday, Wednesday as schedule. Neurology, see Dr. Nichole. Seizure precautions, Speech to see. Plan Plan of Care Problems Medical Problems: (1) ESRD (end stage renal disease) Status: Acute (2) Tremulousness Status: Acute (3) UTI (urinary tract infection) Status: Acute Comment Review of Relevant I have reviewed the following items gabbi (where applicable) has been applied. Labs Laboratory Tests Test 03/21/19 11:31 03/21/19 16:49 03/21/19 21:20 Glucose (Fingerstick) 191 mg/dL (70-99) 217 mg/dL (70-99) 166 mg/dL (70-99) Medications Current Medications Cephalexin HCl (Keflex) 500 mg BID PO ; Start 03/21/19 at 21:00; Stop 03/21/19 at 21:00; Status DC Cephalexin HCl (Keflex) 500 mg QHS PO Last administered on 03/21/19at 20:46; Start 03/21/19 at 21:00 Diphenhydramine HCl (Benadryl) 25 mg 1X PRN PRN IV ITCHING; Start 03/22/19 at 08:30; Stop 03/23/19 at 08:29 Diphenhydramine HCl (Benadryl) 25 mg 1X PRN PRN IV ITCHING; Start 03/22/19 at 08:30; Stop 03/23/19 at 08:29 Info (PHARMACY MONITORING -- do not chart) 1 each PRN DAILY PRN MC SEE COMMENTS; Start 03/22/19 at 08:30 Info (PHARMACY MONITORING -- do not chart) 1 each PRN DAILY PRN MC SEE COMMENTS; Start 03/22/19 at 08:30; Status UNV Lactobacillus Rhamnosus (Culturelle) 1 cap BID PO Last administered on 03/21/19at 20:47; Start 03/21/19 at 21:00 Sodium Chloride 1,000 ml @ 400 mls/hr Q2H30M PRN IV PATENCY; Start 03/22/19 at 08:24; Stop 03/22/19 at 20:23 Sodium Chloride 1,000 ml @ 1,000 mls/hr Q1H PRN IV hypotension; Start 03/22/19 at 08:24; Stop 03/22/19 at 14:23 Vitals/I & O Vital Sign - Last 24 Hours 03/21/19 03/21/19 03/21/19 03/21/19 10:52 11:00 11:20 14:00 Temp 97.6 97.6 Pulse 73 73 Resp 20 B/P (MAP) 118/46 (70) 118/46 Pulse Ox 96 100 96 O2 Delivery Nasal Cannula Nasal Cannula O2 Flow Rate 2.0 2.5 4/03/21/19 03/21/19 03/21/19 15:00 15:05 19:00 19:58 Temp 97.9 98.2 97.9 98.2 Pulse 73 80 Resp 20 19 B/P (MAP) 127/58 (81) 141/70 (93) Pulse Ox 100 97 98 100 O2 Delivery Nasal Cannula Nasal Cannula Nasal Cannula Nasal Cannula O2 Flow Rate 2.0 2.5 2.0 2.5 03/21/19 03/21/19 03/21/19 03/21/19 20:00 20:46 20:49 21:55 Pulse 80 B/P (MAP) 141/70 O2 Delivery Nasal Cannula Nasal Cannula Nasal Cannula O2 Flow Rate 3.0 3.0 3.0 03/21/19 03/22/19 03/22/19 03/22/19 22:39 03:00 07:12 07:22 Temp 98.4 98.2 98.4 98.2 Pulse 82 85 Resp 20 20 B/P (MAP) 151/68 (95) 140/70 (93) Pulse Ox 95 100 100 O2 Delivery Nasal Cannula Nasal Cannula Nasal Cannula Nasal Cannula O2 Flow Rate 2.0 2.0 3.0 3.0 Intake and Output 03/21/19 03/21/19 03/22/19 15:00 23:00 07:00 Intake Total 100 ml 520 ml 60 ml Output Total 0 ml Balance 100 ml 520 ml 60 ml CARMITA WALL MD March 22, 2019 10:09
--- NOTE | 2019-03-22 10:45 | EKG ---
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 Electronically Signed On 03-24-2019 9:54:01 CDT by Matteo Barbosa
--- NOTE | 2019-03-22 10:53 | PDOC2 ---
CARDIAC CONSULT DATE OF CONSULT Date of Consult DATE: 03/22/19 TIME: 10:40 REASON FOR CONSULT Reason for Consult: PSVT REFERRING PHYSICIAN Referring Physician: Yamil SOURCE Source: Chart review, Patient HISTORY OF PRESENT ILLNESS HISTORY OF PRESENT ILLNESS This is a 68 yo female admitted for complains of VERA promting cancellation of her scheduled HD last Wednesday. She has been having shaking episodes to her arms and legs prompting coming to the hospital. She has been dialyzed and evaluated by neurology and no indication of any acute stroke. She was noted with apnea last night also noted with PSVT. No prior symptoms of palpitations, SOA or chest pain. Reports no past CAD and arrhythmias. She has debility and primarily WC bound with left side hemiparesis from previous stroke. Currently she is getting dialyzed and no complains of discomfort. She does have NOLVIA but could not tolerate the mask from CPAP in the past. PAST MEDICAL HISTORY Past Medical History Cardiovascular: CHF, HTN, Hyperlipidemia CENTRAL NERVOUS SYSTEM: CVA (R hemiparesis ), Seizure (post CVA ) GI: Constipation (occasionally ), Other (intermittent reflux esophagitis, ga stroparesis ) Heme/Onc: Anemia NOS (renal ) Psych: Depression Musculoskeletal: Other (h/o Fracture R knee (casted)) Rheumatologic: Gout Renal/: Chronic renal failure (ESRD ) Endocrine: Diabetes (with neuropathy ) Infection: recent breast abscess with I & D PAST SURGICAL HISTORY Past Surgical History AVG RUE, Cholecystectomy, (x5), Hysterectomy FAMILY HISTORY Family History Coronary Artery Disease (PGF, Father), Kidney Disease (ESRD Brother ) SOCIAL HISTORY Smoke: No ALCOHOL: none Drugs: None Lives: with Family CURRENT MEDICATIONS CURRENT MEDICATIONS Current Medications Medications (Trade) Dose Ordered Sig/Yumiko Route PRN Reason Start Time Stop Time Status Last Admin Dose Admin Lactobacillus Rhamnosus (Culturelle) 1 cap BID PO 03/21/19 21:00 03/21/19 20:47 Cephalexin HCl (Keflex) 500 mg QHS PO 03/21/19 21:00 03/21/19 20:46 ALLERGIES ALLERGIES: Coded Allergies: No Known Drug Allergies (Unverified , 02/07/19) ROS Review of System 14 point ROS evaluated with pertinent positives noted per HPI PHYSICAL EXAM General: Alert, Oriented X3, Cooperative, No acute distress HEENT: Atraumatic, Mucous membr. moist/pink Lungs: Clear to auscultation, Normal air movement, Other (diminished bases) Heart: Regular rate (SR), Other Extremities: No cyanosis, No edema Skin: No breakdown, No significant lesion Neuro: Normal speech, Sensation intact Psych/Mental Status: Mental status NL, Mood NL MUSCULOSKELETAL: Osteoarthritic changes both hands, Other (left side hemiparesis) VITALS VITALS Vital Signs Date Time Temp Pulse Resp B/P (MAP) Pulse Ox O2 Delivery O2 Flow Rate FiO2 03/22/19 07:22 Nasal Cannula 3.0 03/22/19 07:12 100 03/22/19 03:00 98.2 85 20 140/70 (93) 98.2 LABS Lab: Laboratory Tests Test 03/21/19 11:31 03/21/19 16:49 03/21/19 21:20 Glucose (Fingerstick) 191 mg/dL (70-99) 217 mg/dL (70-99) 166 mg/dL (70-99) ECHOCARDIOGRAM ECHOCARDIOGRAM <Conclusion> Left ventricle systolic function is normal. The Ejection Fraction is 55-60%. There is grossly normal LV segmental wall motion. Technically limited images. DATE: 10/01/17 1642 ASSESSMENT/PLAN ASSESSMENT/PLAN 1. Metabolic encephalopathy/VERA: VERA remains but better. Neurology following 2. PSVT 3. DILLAN stenosis: per MRI 4. Hx of CVA and seizures 5. HTN: controlled 6. HLP 7. DM2/DPN 8. Morbid obesity with suspected NOLVIA Recommendations 1. TTE, TSH 2. Currently on clonidine low dose. Will start on toprol at hs 3. PSVT trigger which primarily due to NOLVIA. Plan for outpt event monitor. 4. If no past or recent stress test then will consider for outpt stress test for further risk stratification given her significant risk factors 5. Will need to be retested for NOLVIA. ELIECER DOWNS TRAINING DEVELOPMENT MANAGER March 22, 2019 10:53
--- NOTE | 2019-03-22 11:10 | PDOC ---
PROGRESS NOTES Assessment Problems Medical Problems: (1) ESRD (end stage renal disease) Status: Acute (2) Tremulousness Status: Acute (3) UTI (urinary tract infection) Status: Acute Metabolic encephalopathy, renal failure Headaches, better, elevated ESR, but doubt giant cell arteritis. Negative MRI/A/V Myoclonus, resolved, negative EEG 03/21, which does show evidence of encephalopathy, though Prior right middle cerebral artery stroke. History of epilepsy, EEG 03/21 negative for epileptic activity Episode of PSVT and apnea last night, cardiology following Plan Continue levetiracetam Migraine cocktail, ketorolac, diphenhydramine, prochlorperazine, has not used (IV out) Hold on lumbar puncture. Objective Vital Signs Date Time Temp Pulse Resp B/P (MAP) Pulse Ox O2 Delivery O2 Flow Rate FiO2 03/22/19 07:22 Nasal Cannula 3.0 03/22/19 07:12 100 03/22/19 03:00 98.2 85 20 140/70 (93) 98.2 Intake and Output 03/22/19 06:59 Intake Total 680 ml Output Total 0 ml Balance 680 ml Intake Oral 680 ml Output Urine Total 0 ml PHYSICAL EXAM Somnulant, alerts easily, oriented to time, place and person. PERRL. EOMI. CN: Spastic dysarthria, left central facial weakness Muscle tone: increased on left. Muscle strength: 2/5 on left DTR: 2+ Plantar reflex: flexor Gait: not examined in bed. Sensory exam: no abnormal findings. No cerebellar signs elicited. Review of Relevant I have reviewed the following items gabbi (where applicable) has been applied. Labs Laboratory Tests Test 03/20/19 11:28 03/20/19 13:10 03/20/19 15:58 03/20/19 17:25 Glucose (Fingerstick) 125 mg/dL (70-99) 107 mg/dL (70-99) Troponin I Quantitative 0.024 ng/mL (0.000-0.055) 0.035 ng/mL (0.000-0.055) Test 03/20/19 20:28 03/21/19 07:04 03/21/19 09:00 03/21/19 11:31 Glucose (Fingerstick) 127 mg/dL (70-99) 129 mg/dL (70-99) 191 mg/dL (70-99) Erythrocyte Sedimentation Rate 63 (0-25) Test 03/21/19 16:49 03/21/19 21:20 Glucose (Fingerstick) 217 mg/dL (70-99) 166 mg/dL (70-99) Laboratory Tests Test 03/21/19 11:31 03/21/19 16:49 03/21/19 21:20 Glucose (Fingerstick) 191 mg/dL (70-99) 217 mg/dL (70-99) 166 mg/dL (70-99) Medications Current Medications Hydralazine HCl (Apresoline Inj) 20 mg 1X ONCE IVP Last administered on 03/20/19 07:54; Start 03/20/19 at 07:30; Stop 03/20/19 at 07:31; Status DC Lorazepam (Ativan) 0.5 mg 1X ONCE IV Last administered on 03/20/19at 07:59; Start 03/20/19 at 08:00; Stop 03/20/19 at 08:01; Status DC Ondansetron HCl (Zofran) 4 mg PRN Q8HRS PRN IV NAUSEA/VOMITING; Start 03/20/19 at 08:15; Stop 03/21/19 at 08:14; Status DC Insulin Human Lispro (HumaLOG) 0-5 UNITS TIDWMEALS SQ Last administered on 03/21/19at 17:00; Start 03/20/19 at 12:00 Dextrose (Dextrose 50%-Water Syringe) 12.5 gm PRN Q15MIN PRN IV SEE COMMENTS; Start 03/20/19 at 08:15 Ceftriaxone Sodium (Rocephin) 1 gm Q24H IVP Last administered on 03/21/19at 13:53; Start 03/20/19 at 11:00; Stop 03/21/19 at 14:00; Status DC Allopurinol (Zyloprim) 100 mg DAILY PO Last administered on 03/21/19at 09:52; Start 03/20/19 at 11:00 Alprazolam (Xanax) 0.25 mg PRN BID PRN PO ANXIETY / AGITATION Last administered on 03/21/19at 20:49; Start 03/20/19 at 10:15 Cinacalcet (Sensipar) 30 mg DAILY PO Last administered on 03/21/19 18:08; Start 03/20/19 at 11:00 Citalopram Hydrobromide (CeleXA) 10 mg DAILY PO Last administered on 03/21/19 09:52; Start 03/20/19 at 11:00 Clonidine HCl (Catapres) 0.1 mg TID PO Last administered on 03/21/19 20:46; Start 03/20/19 at 14:00 Clopidogrel Bisulfate (Plavix) 75 mg DAILY PO Last administered on 03/21/19 09:53; Start 03/20/19 at 11:00 Cyclobenzaprine HCl (Flexeril) 10 mg BID PO Last administered on 03/21/19 20:47; Start 03/20/19 at 11:00 Gabapentin (Neurontin) 300 mg HS PO Last administered on 03/21/19 20:47; Start 03/20/19 at 21:00 Acetaminophen/ Hydrocodone Bitart (Lortab 5/325) 1 tab PRN Q6HRS PRN PO MODERATE PAIN Last administered on 03/21/19 20:49; Start 03/20/19 at 10:15 Levetiracetam (Keppra) 500 mg BID PO ; Start 03/20/19 at 11:00; Stop 03/20/19 at 11:00; Status DC Metoclopramide HCl (Reglan) 2.5 mg QIDACHS PO Last administered on 03/21/19 20:47; Start 03/20/19 at 11:30 Non-Formulary Medication (Levalbuterol Tartrate (Xopenex Hfa)) 2 puff QID IH ; Start 03/20/19 at 13:00; Status UNV Non-Formulary Medication (Naloxegol Oxalate (Movantik)) 25 mg DAILY PO ; Start 03/21/19 at 09:00; Stop 03/22/19 at 08:35; Status DC Sennosides (Senna) 8.6 mg BID PO Last administered on 03/21/19 20:47; Start 03/20/19 at 10:30 Simvastatin (Zocor) 40 mg QHS PO Last administered on 03/21/19 20:46; Start 03/20/19 at 21:00 Vitamin B Complex/ Vitamin C (Makayla-Britton) 1 tab DAILY PO Last administered on 03/21/19at 09:51; Start 03/20/19 at 11:00 Calcium Acetate (Phoslo) 2,001 mg TIDWMEALS PO Last administered on 03/21/19at 17:00; Start 03/20/19 at 12:00 Levetiracetam (Keppra) 1,000 mg BID PO Last administered on 03/21/19at 20:46; Start 03/20/19 at 11:00 Albuterol Sulfate (Ventolin Neb Soln) 2.5 mg RTQID NEB Last administered on 03/22/19at 07:11; Start 03/20/19 at 12:00 Sodium Chloride 1,000 ml @ 1,000 mls/hr Q1H PRN IV hypotension; Start 03/20/19 at 13:30; Stop 03/20/19 at 19:29; Status DC Sodium Chloride 1,000 ml @ 400 mls/hr Q2H30M PRN IV PATENCY; Start 03/20/19 at 13:30; Stop 03/21/19 at 01:29; Status DC Info (PHARMACY MONITORING -- do not chart) 1 each PRN DAILY PRN MC SEE COMMENTS; Start 03/20/19 at 14:15; Status UNV Info (PHARMACY MONITORING -- do not chart) 1 each PRN DAILY PRN MC SEE COMMENTS; Start 03/20/19 at 14:15; Status Cancel Ketorolac Tromethamine (Toradol 15mg Vial) 15 mg PRN Q6HRS PRN IV PAIN; Start 03/21/19 at 09:00; Stop 03/26/19 at 08:59 Diphenhydramine HCl (Benadryl) 25 mg PRN Q6HRS PRN IVP ITCHING; Start 03/21/19 at 09:00 Prochlorperazine Edisylate (Compazine) 10 mg PRN Q6HRS PRN IV NAUSEA/VOMITING; Start 03/21/19 at 09:00 Cephalexin HCl (Keflex) 500 mg BID PO ; Start 03/21/19 at 21:00; Stop 03/21/19 at 21:00; Status DC Lactobacillus Rhamnosus (Culturelle) 1 cap BID PO Last administered on 03/21/19at 20:47; Start 03/21/19 at 21:00 Cephalexin HCl (Keflex) 500 mg QHS PO Last administered on 03/21/19at 20:46; Start 03/21/19 at 21:00 Sodium Chloride 1,000 ml @ 1,000 mls/hr Q1H PRN IV hypotension; Start 03/22/19 at 08:24; Stop 03/22/19 at 14:23 Diphenhydramine HCl (Benadryl) 25 mg 1X PRN PRN IV ITCHING; Start 03/22/19 at 08:30; Stop 03/23/19 at 08:29 Diphenhydramine HCl (Benadryl) 25 mg 1X PRN PRN IV ITCHING; Start 03/22/19 at 08:30; Stop 03/23/19 at 08:29 Sodium Chloride 1,000 ml @ 400 mls/hr Q2H30M PRN IV PATENCY; Start 03/22/19 at 08:24; Stop 03/22/19 at 20:23 Info (PHARMACY MONITORING -- do not chart) 1 each PRN DAILY PRN MC SEE COMMENTS; Start 03/22/19 at 08:30; Status UNV Info (PHARMACY MONITORING -- do not chart) 1 each PRN DAILY PRN MC SEE COMMENTS; Start 03/22/19 at 08:30 Active Scripts Active Augmentin 500-125 Tablet (Amoxicillin/Potassium Clav) 1 Each Tablet 1 Tab PO BID Reported [phoslo] 2,001 Mg PO TID Movantik (Naloxegol Oxalate) 25 Mg Tablet 25 Mg PO DAILY Xopenex Hfa (Levalbuterol Tartrate) 15 Gm Hfa.aer.ad 2 Puff IH QID Keppra (Levetiracetam) 500 Mg Tablet 1 Tab PO BID Vol-Care Rx Tablet (Vit B Cmplx 3/Fa/Vit C/Biotin) 1 Each Tablet 1 Each PO DAILY Clopidogrel (Clopidogrel Bisulfate) 75 Mg Tablet 1 Tab PO DAILY Alprazolam 0.25 Mg Tablet 1 Tab PO PRN BID PRN Celexa (Citalopram Hydrobromide) 10 Mg Tablet 1 Tab PO DAILY Allopurinol 100 Mg Tablet 1 Tab PO DAILY Sensipar (Cinacalcet Hcl) 30 Mg Tablet 1 Tab PO DAILY Simvastatin 40 Mg Tablet 1 Tab PO QHS Gabapentin (Gabapentin) 300 Mg Capsule 1 Cap PO HS Senna (Sennosides) 8.6 Mg Capsule 8.6 Mg PO BID Cyclobenzaprine Hcl 10 Mg Tablet 1 Tab PO BID Reglan (Metoclopramide Hcl) 10 Mg Tablet 5 Mg PO QIDACHS Clonidine Hcl 0.1 Mg Tablet 1 Tab PO TID Hydrocodone-Apap 5-325 (Hydrocodone Bit/Acetaminophen) 1 Each Tablet 1 Tab PO PRN Q6HRS PRN Vitals/I & O Vital Sign - Last 24 Hours 03/21/19 03/21/19 03/21/19 03/21/19 11:20 14:00 15:00 15:05 Temp 97.9 97.9 Pulse 73 73 Resp 20 B/P (MAP) 118/46 127/58 (81) Pulse Ox 96 100 97 O2 Delivery Nasal Cannula Nasal Cannula Nasal Cannula O2 Flow Rate 2.5 2.0 2.5 03/21/19 03/21/19 03/21/19 03/21/19 19:00 19:58 20:00 20:46 Temp 98.2 98.2 Pulse 80 80 Resp 19 B/P (MAP) 141/70 (93) 141/70 Pulse Ox 98 100 O2 Delivery Nasal Cannula Nasal Cannula Nasal Cannula O2 Flow Rate 2.0 2.5 3.0 03/21/19 03/21/19 03/21/19 03/22/19 20:49 21:55 22:39 03:00 Temp 98.4 98.2 98.4 98.2 Pulse 82 85 Resp 20 20 B/P (MAP) 151/68 (95) 140/70 (93) Pulse Ox 95 100 O2 Delivery Nasal Cannula Nasal Cannula Nasal Cannula Nasal Cannula O2 Flow Rate 3.0 3.0 2.0 2.0 03/22/19 03/22/19 07:12 07:22 Pulse Ox 100 O2 Delivery Nasal Cannula Nasal Cannula O2 Flow Rate 3.0 3.0 Intake and Output 03/21/19 03/21/19 03/22/19 14:59 22:59 06:59 Intake Total 100 ml 520 ml 60 ml Output Total 0 ml Balance 100 ml 520 ml 60 ml Images Reviewed MRI/A/V PATRICIA SILVEIRA MD March 22, 2019 11:10
[2019-03-22] MEDS: HYDROcodone/APAP 5/325MG 1 TAB TABLET PO PRN ×2 (12:55→18:32)
[2019-03-22] MEDS: CLOPIDOGREL BISULFATE 75 MG TABLET PO SCH (12:59)
[2019-03-22] MEDS: ALLOPURINOL 100 MG TABLET. PO SCH (12:59)
[2019-03-22] MEDS: CINACALCET HCL 30 MG TABLET PO SCH (12:59)
[2019-03-22] MEDS: CITALOPRAM 10 MG TABLET. PO SCH (12:59)
[2019-03-22] MEDS: LACTOBACILLUS RHAMNOSUS GG 1 CAPSULE. PO SCH ×2 (12:59→20:30)
[2019-03-22] MEDS: levETIRAcetam 500 MG TABLET PO SCH ×2 (12:59→20:32)
[2019-03-22] MEDS: SENNOSIDES 8.6 MG TABLET PO SCH ×2 (13:00→20:31)
[2019-03-22] MEDS: FOLIC/VIT B COMP W-C (RENAL) TABLET. PO SCH (13:00)
[2019-03-22] MEDS: CYCLOBENZAPRINE 10 MG TABLET. PO SCH ×2 (13:00→20:31)
[2019-03-22 13:41] LABS: BASO % 1 % (0-3); EOS # 0.1 x10^3/uL (0.0-0.7); EOS % 3 % (0-3); HEMATOCRIT 33.6 % (36.0-47.0); HEMOGLOBIN 10.5 g/dL (12.0-15.5); LYMPH # 1.2 x10^3/uL (1.0-4.8); LYMPH % 34 % (24-48); MEAN CORPUSCULAR HEMOGLOBIN 31 pg (25-35); MEAN CORPUSCULAR HGB CONC 31 g/dL (31-37); MEAN CORPUSCULAR VOLUME 98 fL (79-100); MONO # 0.5 x10^3/uL (0.0-1.1); MONO % 14 % (0-9); NEUT # 1.7 x10^3uL (1.8-7.7); NEUT % 48 % (31-73); PLATELET COUNT 122 x10^3/uL (140-400); RED BLOOD COUNT 3.41 x10^6/uL (3.50-5.40); RED CELL DISTRIBUTION WIDTH 14.2 % (11.5-14.5); WHITE BLOOD COUNT 3.5 x10^3/uL (4.0-11.0)
[2019-03-22 13:50] LABS: CALCIUM 9.1 mg/dL (8.5-10.1); CREATININE 4.1 mg/dL (0.6-1.0); GFR 13.1; POTASSIUM 4.1 mmol/L (3.5-5.1)
[2019-03-22 15:00] VITALS: BP 133/55
--- NOTE | 2019-03-22 15:53 | CARD ---
MR#: [id number] Date of Study: 03/22/2019 Ordering Physician: CARMITA WALL, Referring Physician: CARMITA WALL, Tech: Tahmina Mcadams APPROVED REPORT EXAM: Two-dimensional and M-mode echocardiogram with Doppler and color Doppler. Other Information Quality : FairHR: [id number] Technically limited study due to body habitus. INDICATION Hypertension/HCVD 2D DIMENSIONS RVDd2.4 (2.9-3.5cm)Left Atrium(2D)3.9 (1.6-4.0cm) IVSd1.3 (0.7-1.1cm)Aortic Root(2D)2.9 (2.0-3.7cm) LVDd4.8 (3.9-5.9cm)LVOT Diameter2.1 (1.8-2.4cm) PWd1.3 (0.7-1.1cm)LVDs3.6 (2.5-4.0cm) FS (%) 24.0 %SV50.6 ml Aortic Valve AoV Peak Celestine.144.8cm/sAoV VTI30.2cm AO Peak GR.8.4mmHgLVOT VTI 21.05cm AO Mean GR.5mmHg Mitral Valve MV E Ihgqqqwp48.2cm/sMV DECEL [id number] MV A Ssoleqwg94.9cm/sE/A Ratio0.7 TDI Lateral E' P. V4.44cm/sMedial E' P. V5.86cm/s E/Lateral E'15.1E/Medial E'11.5 Tricuspid Valve RAP [id number] Peak Gr.22mmHg [id number] Pulmonary Vein S1 Kqmmocxt36.5cm/sS2 Ndxamujr16.47cm/s D2 Vyzzvcex27.5cm/sPVa [id number] LEFT VENTRICLE The left ventricle is normal size. There is mild to moderate concentric left ventricular hypertrophy. The left ventricular systolic function is normal and the ejection fraction is within normal range. T he Ejection Fraction is 55-60%. There is normal LV segmental wall motion. Transmitral Doppler flow pa ttern is Grade I-abnormal relaxation pattern. RIGHT VENTRICLE The right ventricle is borderline dilated. There is normal right ventricular wall thickness. The righ t ventricular systolic function is normal. ATRIA The left atrium size is normal. The right atrium size is normal. The interatrial septum is intact wit h no evidence for an atrial septal defect or patent foramen ovale as noted on 2-D or Doppler imaging. AORTIC VALVE The aortic valve is thickened but opens well. Doppler and Color Flow revealed no significant aortic r egurgitation. There is no significant aortic valvular stenosis. MITRAL VALVE The mitral valve is normal in structure and function. There is no evidence of mitral valve prolapse. There is no mitral valve stenosis. Doppler and Color Flow revealed trace mitral valve regurgitation. TRICUSPID VALVE The tricuspid valve is normal in structure and function. Doppler and Color Flow revealed trace tricus pid valve regurgitation noted with an estimated PAP of 25 mmHg. There is no tricuspid valve stenosis. PULMONIC VALVE The pulmonic valve is not well visualized. Doppler and Color Flow revealed no pulmonic valvular regur gitation. GREAT VESSELS The aortic root is normal in size. The IVC is normal in size and collapses >50% with inspiration. PERICARDIAL EFFUSION There is no evidence of significant pericardial effusion. Critical Notification Critical Value: No <Conclusion> The left ventricle is normal size. The left ventricular systolic function is normal and the ejection fraction is within normal range. The Ejection Fraction is 55-60%. There is mild to moderate concentric left ventricular hypertrophy. There is no significant aortic valvular stenosis. Doppler and Color Flow revealed no significant aortic regurgitation. Doppler and Color Flow revealed trace mitral valve regurgitation. Doppler and Color Flow revealed trace tricuspid valve regurgitation noted with an estimated PAP of 25 mmHg. Signed by : Matteo Barbosa MD Electronically Approved : 03/22/2019 15:52:37
--- NOTE | 2019-03-22 16:02 | NUR ---
AMELIA following pt for anticipated dc needs. Chart reviewed and JOSE JUAN RN. Pt reported she lives at home with daughters and plans to return home upon dc. Pt is dependent for ADL's and not appropriate for PT/OT intervention. Will continue to follow.
--- NOTE | 2019-03-22 17:56 | PDOC ---
PULMONARY PROGRESS NOTES Vitals Vital Signs Date Time Temp Pulse Resp B/P (MAP) Pulse Ox O2 Delivery O2 Flow Rate FiO2 03/22/19 15:15 Nasal Cannula 2.0 03/22/19 15:00 98.1 74 20 133/55 (81) 98 98.1 General: Alert, No acute distress Lungs: Other Cardiovascular: S1, S2 Abdomen: Soft, Other Extremities: No Edema Labs Laboratory Tests Test 03/20/19 20:28 03/21/19 07:04 03/21/19 09:00 03/21/19 11:31 Glucose (Fingerstick) 127 mg/dL (70-99) 129 mg/dL (70-99) 191 mg/dL (70-99) Erythrocyte Sedimentation Rate 63 (0-25) Test 03/21/19 16:49 03/21/19 21:20 03/22/19 12:25 03/22/19 13:30 Glucose (Fingerstick) 217 mg/dL (70-99) 166 mg/dL (70-99) 102 mg/dL (70-99) White Blood Count 3.5 x10^3/uL (4.0-11.0) Red Blood Count 3.41 x10^6/uL (3.50-5.40) Hemoglobin 10.5 g/dL (12.0-15.5) Hematocrit 33.6 % (36.0-47.0) Mean Corpuscular Volume 98 fL (79-100) Mean Corpuscular Hemoglobin 31 pg (25-35) Mean Corpuscular Hemoglobin Concent 31 g/dL (31-37) Red Cell Distribution Width 14.2 % (11.5-14.5) Platelet Count 122 x10^3/uL (140-400) Neutrophils (%) (Auto) 48 % (31-73) Lymphocytes (%) (Auto) 34 % (24-48) Monocytes (%) (Auto) 14 % (0-9) Eosinophils (%) (Auto) 3 % (0-3) Basophils (%) (Auto) 1 % (0-3) Neutrophils # (Auto) 1.7 x10^3uL (1.8-7.7) Lymphocytes # (Auto) 1.2 x10^3/uL (1.0-4.8) Monocytes # (Auto) 0.5 x10^3/uL (0.0-1.1) Eosinophils # (Auto) 0.1 x10^3/uL (0.0-0.7) Basophils # (Auto) 0.0 x10^3/uL (0.0-0.2) Sodium Level 136 mmol/L (136-145) Potassium Level 4.1 mmol/L (3.5-5.1) Chloride Level 99 mmol/L (98-107) Carbon Dioxide Level 32 mmol/L (21-32) Anion Gap 5 (6-14) Blood Urea Nitrogen 20 mg/dL (7-20) Creatinine 4.1 mg/dL (0.6-1.0) Estimated GFR (Cockcroft-Gault) 13.1 Glucose Level 129 mg/dL (70-99) Calcium Level 9.1 mg/dL (8.5-10.1) Thyroid Stimulating Hormone (TSH) 2.964 uIU/mL (0.358-3.74) Test 03/22/19 17:15 Glucose (Fingerstick) 120 mg/dL (70-99) Laboratory Tests Test 03/21/19 21:20 03/22/19 12:25 03/22/19 13:30 03/22/19 17:15 Glucose (Fingerstick) 166 mg/dL (70-99) 102 mg/dL (70-99) 120 mg/dL (70-99) White Blood Count 3.5 x10^3/uL (4.0-11.0) Red Blood Count 3.41 x10^6/uL (3.50-5.40) Hemoglobin 10.5 g/dL (12.0-15.5) Hematocrit 33.6 % (36.0-47.0) Mean Corpuscular Volume 98 fL (79-100) Mean Corpuscular Hemoglobin 31 pg (25-35) Mean Corpuscular Hemoglobin Concent 31 g/dL (31-37) Red Cell Distribution Width 14.2 % (11.5-14.5) Platelet Count 122 x10^3/uL (140-400) Neutrophils (%) (Auto) 48 % (31-73) Lymphocytes (%) (Auto) 34 % (24-48) Monocytes (%) (Auto) 14 % (0-9) Eosinophils (%) (Auto) 3 % (0-3) Basophils (%) (Auto) 1 % (0-3) Neutrophils # (Auto) 1.7 x10^3uL (1.8-7.7) Lymphocytes # (Auto) 1.2 x10^3/uL (1.0-4.8) Monocytes # (Auto) 0.5 x10^3/uL (0.0-1.1) Eosinophils # (Auto) 0.1 x10^3/uL (0.0-0.7) Basophils # (Auto) 0.0 x10^3/uL (0.0-0.2) Sodium Level 136 mmol/L (136-145) Potassium Level 4.1 mmol/L (3.5-5.1) Chloride Level 99 mmol/L (98-107) Carbon Dioxide Level 32 mmol/L (21-32) Anion Gap 5 (6-14) Blood Urea Nitrogen 20 mg/dL (7-20) Creatinine 4.1 mg/dL (0.6-1.0) Estimated GFR (Cockcroft-Gault) 13.1 Glucose Level 129 mg/dL (70-99) Calcium Level 9.1 mg/dL (8.5-10.1) Thyroid Stimulating Hormone (TSH) 2.964 uIU/mL (0.358-3.74) Medications Active Scripts Medications Dose Route/Sig Max Daily Dose Days Date Category Augmentin 500-125 Tablet (Amoxicillin/Potassium Clav) 1 Each Tablet 1 Tab PO BID 11/25/18 Rx [phoslo] 2,001 Mg PO TID 01/16/17 Reported Movantik (Naloxegol Oxalate) 25 Mg Tablet 25 Mg PO DAILY 01/16/17 Reported Xopenex Hfa (Levalbuterol Tartrate) 15 Gm Hfa.aer.ad 2 Puff IH QID 01/16/17 Reported Keppra (Levetiracetam) 500 Mg Tablet 1 Tab PO BID 07/20/15 Reported Vol-Care Rx Tablet (Vit B Cmplx 3/Fa/Vit C/Biotin) 1 Each Tablet 1 Each PO DAILY 07/20/15 Reported Clopidogrel (Clopidogrel Bisulfate) 75 Mg Tablet 1 Tab PO DAILY 07/20/15 Reported Alprazolam 0.25 Mg Tablet 1 Tab PO PRN BID PRN 07/20/15 Reported Celexa (Citalopram Hydrobromide) 10 Mg Tablet 1 Tab PO DAILY 07/20/15 Reported Allopurinol 100 Mg Tablet 1 Tab PO DAILY 07/20/15 Reported Sensipar (Cinacalcet Hcl) 30 Mg Tablet 1 Tab PO DAILY 07/20/15 Reported Simvastatin 40 Mg Tablet 1 Tab PO QHS 07/20/15 Reported Gabapentin (Gabapentin) 300 Mg Capsule 1 Cap PO HS 07/20/15 Reported Senna (Sennosides) 8.6 Mg Capsule 8.6 Mg PO BID 07/20/15 Reported Cyclobenzaprine Hcl 10 Mg Tablet 1 Tab PO BID 07/20/15 Reported Reglan (Metoclopramide Hcl) 10 Mg Tablet 5 Mg PO QIDACHS 07/20/15 Reported Clonidine Hcl 0.1 Mg Tablet 1 Tab PO TID 07/20/15 Reported Hydrocodone-Apap 5-325 (Hydrocodone Bit/Acetaminophen) 1 Each Tablet 1 Tab PO PRN Q6HRS PRN 07/20/15 Reported Impression . NOTE DICTATED INSURANCE WILL NOT COVER A SLEEP STUDY FOR NOLVIA WARNER MOSER MD March 22, 2019 17:56
--- NOTE | 2019-03-22 18:47 | NUR ---
MARKUS IS MORE ALERT AND AWAKE AFTER DIALYSIS. SHE IS TOLERATING HER FOOD WELL,. SHE IS RATING HER PAIN- HEADACHE AND COCCYX -9 AT THIS TIME. PREVIOUS HOUR IT WAS A "0" SHE WENT TO DIALYSIS AND THEY TOOK OFF A 1 KILO.
[2019-03-22 19:00] VITALS: BP 111/38
[2019-03-22] MEDS: CEPHALEXIN 250 MG CAPSULE. PO SCH (20:30)
[2019-03-22] MEDS: METOPROLOL SUCC 24HR ER 25 MG TAB.ER.24H. PO SCH (20:31)
[2019-03-22] MEDS: SIMVASTATIN 40 MG TABLET. PO SCH (20:31)
[2019-03-22] MEDS: GABAPENTIN 300 MG CAPSULE. PO SCH (20:31)
[2019-03-22 23:00] VITALS: BP 116/42
[2019-03-23 03:00] VITALS: BP 104/53
--- NOTE | 2019-03-23 06:38 | CONS ---
DATE OF CONSULTATION: 03/22/2019 ATTENDING PHYSICIAN: Dr. Lobo. REASON FOR CONSULTATION: The patient is seen in pulmonary consultation at the request of Dr. Lobo for possible obstructive sleep apnea. HISTORY OF PRESENT ILLNESS: The patient is a 68-year-old that presented with severe headaches, tremor-like activity, history of previous stroke with left-sided hemiparesis. I was asked to see her in consultation for possible obstructive sleep apnea. The patient does have clinical symptoms and signs of NOLVIA, family noticed snoring. She awakens unrefreshed from her sleep. She also has intermittent excessive daytime sleepiness. PAST MEDICAL HISTORY: Remarkable for previous CVA with left-sided hemiparesis; end-stage renal disease, on hemodialysis; type 2 diabetes; hypertension; seizures. PAST SURGICAL HISTORY: AV shunt left arm. MEDICATIONS: List was reviewed. REVIEW OF SYSTEMS: As indicated above, otherwise, a 10-point system was reviewed and negative. SOCIAL HISTORY: She quit tobacco many years ago. Lives with her daughter. PHYSICAL EXAMINATION: GENERAL: Morbid, obese individual in no respiratory distress, currently on 2 liters. HEENT: Eyes, the sclerae were nonicteric. NECK: Jugular venous distention could not be assessed secondary to body habitus. CHEST: Full expansion. LUNGS: Adequate airway flow, no wheezes. ABDOMEN: Obese. EXTREMITIES: Some edema. LABORATORY DATA: Reviewed. Chest x-ray reviewed. White count was slightly decreased. Electrolytes were noted. BUN was normal. Creatinine was elevated. Chest x-ray revealed no acute cardiopulmonary process. IMPRESSION: 1. Clinical presentation compatible with obstructive sleep apnea. 2. Cerebrovascular accident with left-sided hemiparesis. 3. Morbid obesity. 4. End-stage renal disease, on hemodialysis. 5. Headaches. 6. History of epilepsy. PLAN: 1. Unfortunately, the patient's insurance precludes polysomnogram. 2. Once she becomes eligible for Medicare, one could certainly obtain a polysomnogram. 3. The patient has oxygen at home. Continue oxygen at bedtime. I do appreciate the privilege in sharing the patient's care. WARNER MOSER MD DR: DAWIT/ayan JOB#: [id number] / [id number]
[2019-03-23 07:00] VITALS: BP 139/65
[2019-03-23] MEDS: ALBUTEROL SULFATE 2.5 MG/3 ML NEBU. NEB SCH ×4 (07:55→20:52)
[2019-03-23] MEDS: INSULIN LISPRO 300 UNITS/3 ML INSULN.PEN. SQ SCH ×3 (08:00→17:00)
[2019-03-23] MEDS: CLOPIDOGREL BISULFATE 75 MG TABLET PO SCH (08:28)
[2019-03-23] MEDS: CALCIUM ACETATE 667 MG CAPSULE PO SCH ×3 (08:28→17:27)
[2019-03-23] MEDS: levETIRAcetam 500 MG TABLET PO SCH ×2 (08:29→20:34)
[2019-03-23] MEDS: HYDROcodone/APAP 5/325MG 1 TAB TABLET PO PRN ×2 (08:30→16:02)
[2019-03-23] MEDS: FOLIC/VIT B COMP W-C (RENAL) TABLET. PO SCH (08:33)
[2019-03-23] MEDS: LACTOBACILLUS RHAMNOSUS GG 1 CAPSULE. PO SCH ×2 (08:35→20:34)
[2019-03-23] MEDS: cloNIDine HCL 0.1 MG TABLET PO SCH ×3 (08:35→20:35)
[2019-03-23] MEDS: CITALOPRAM 10 MG TABLET. PO SCH (08:36)
[2019-03-23] MEDS: ALLOPURINOL 100 MG TABLET. PO SCH (08:37)
[2019-03-23] MEDS: SENNOSIDES 8.6 MG TABLET PO SCH ×2 (08:37→20:34)
[2019-03-23] MEDS: CINACALCET HCL 30 MG TABLET PO SCH (08:38)
[2019-03-23] MEDS: METOCLOPRAMIDE 5 MG TABLET. PO SCH ×4 (08:38→20:34)
[2019-03-23] MEDS: CYCLOBENZAPRINE 10 MG TABLET. PO SCH ×2 (08:38→20:33)
--- NOTE | 2019-03-23 10:19 | PDOC ---
PROGRESS NOTES Subjective Subjective sitting reading magazine Objective Objective Vital Signs Date Time Temp Pulse Resp B/P (MAP) Pulse Ox O2 Delivery O2 Flow Rate FiO2 03/23/19 09:36 99 Nasal Cannula 2.0 03/23/19 08:35 74 139/65 03/23/19 07:00 97.7 22 97.7 Intake and Output 03/23/19 06:59 Intake Total 1060 ml Balance 1060 ml Intake Oral 1060 ml # Voids 1 Physical Exam Abdomen: Normal bowel sounds, Soft Heart: Regular rate (SR), Other Extremities: No cyanosis, No edema General: Alert, Oriented X3, Cooperative, No acute distress HEENT: Atraumatic, Mucous membr. moist/pink Lungs: Clear to auscultation, Normal air movement, Other (diminished bases) MUSCULOSKELETAL: Osteoarthritic changes both hands, Other (left side hemiparesis) Neuro: Normal speech, Sensation intact Psych/Mental Status: Mental status NL, Mood NL Skin: No breakdown, No significant lesion Diagnosis Problem List Problems Medical Problems: (1) ESRD (end stage renal disease) Status: Acute (2) Tremulousness Status: Acute (3) UTI (urinary tract infection) Status: Acute Assessment Assessment Problems Medical Problems: (1) ESRD (end stage renal disease) Status: Acute (2) Tremulousness Status: Acute (3) UTI (urinary tract infection) Status: Acute FINAL IMPRESSION: PSVT Sleep apnea 1. Severe headache. 2. Tremor-like activity, right upper and lower extremity. 3. History of previous stroke with left hemiparesis. 4. On Keppra for seizures. 5. End-stage renal disease, on dialysis. 6. Urinary tract infection. 7. Morbidly obese. PLAN: ECHO good lvf , cardiology consult done.needs out pt holter Needs CPAP for home ,insurance donot pay for CPAP machine , pul consult appreciated EEG neg for seizure activity Dialysis today po keflex for uti. labs ok. keppra for seizures MRI and MRA showed old cva ,no new cva home today At this time admit to hospital. After urine culture, start on Rocephin. Get dialysis today; Wednesday, Wednesday, Wednesday as schedule. Neurology, see Dr. Nichole. Seizure precautions, Speech to see. Plan Plan of Care Problems Medical Problems: (1) ESRD (end stage renal disease) Status: Acute (2) Tremulousness Status: Acute (3) UTI (urinary tract infection) Status: Acute Comment Review of Relevant I have reviewed the following items gabbi (where applicable) has been applied. Labs Laboratory Tests Test 03/22/19 12:25 03/22/19 13:30 03/22/19 17:15 03/22/19 21:12 Glucose (Fingerstick) 102 mg/dL (70-99) 120 mg/dL (70-99) 145 mg/dL (70-99) White Blood Count 3.5 x10^3/uL (4.0-11.0) Red Blood Count 3.41 x10^6/uL (3.50-5.40) Hemoglobin 10.5 g/dL (12.0-15.5) Hematocrit 33.6 % (36.0-47.0) Mean Corpuscular Volume 98 fL (79-100) Mean Corpuscular Hemoglobin 31 pg (25-35) Mean Corpuscular Hemoglobin Concent 31 g/dL (31-37) Red Cell Distribution Width 14.2 % (11.5-14.5) Platelet Count 122 x10^3/uL (140-400) Neutrophils (%) (Auto) 48 % (31-73) Lymphocytes (%) (Auto) 34 % (24-48) Monocytes (%) (Auto) 14 % (0-9) Eosinophils (%) (Auto) 3 % (0-3) Basophils (%) (Auto) 1 % (0-3) Neutrophils # (Auto) 1.7 x10^3uL (1.8-7.7) Lymphocytes # (Auto) 1.2 x10^3/uL (1.0-4.8) Monocytes # (Auto) 0.5 x10^3/uL (0.0-1.1) Eosinophils # (Auto) 0.1 x10^3/uL (0.0-0.7) Basophils # (Auto) 0.0 x10^3/uL (0.0-0.2) Sodium Level 136 mmol/L (136-145) Potassium Level 4.1 mmol/L (3.5-5.1) Chloride Level 99 mmol/L (98-107) Carbon Dioxide Level 32 mmol/L (21-32) Anion Gap 5 (6-14) Blood Urea Nitrogen 20 mg/dL (7-20) Creatinine 4.1 mg/dL (0.6-1.0) Estimated GFR (Cockcroft-Gault) 13.1 Glucose Level 129 mg/dL (70-99) Calcium Level 9.1 mg/dL (8.5-10.1) Thyroid Stimulating Hormone (TSH) 2.964 uIU/mL (0.358-3.74) Test 03/23/19 08:34 Glucose (Fingerstick) 151 mg/dL (70-99) Medications Current Medications Metoprolol Succinate (Toprol Xl) 25 mg QHS PO Last administered on 03/22/19at 20:31; Start 03/22/19 at 21:00 Vitals/I & O Vital Sign - Last 24 Hours 03/22/19 03/22/19 03/22/19 03/22/19 12:55 12:59 15:00 15:15 Temp 98.1 98.1 Pulse 85 74 Resp 20 20 B/P (MAP) 140/70 133/55 (81) Pulse Ox 98 O2 Delivery Nasal Cannula Nasal Cannula Nasal Cannula O2 Flow Rate 2.0 2.0 2.0 03/22/19 03/22/19 03/22/19 03/22/19 18:32 19:00 20:00 20:31 Temp 98.2 98.2 Pulse 82 82 Resp 20 14 B/P (MAP) 111/38 (62) 111/38 Pulse Ox 96 O2 Delivery Nasal Cannula Nasal Cannula Nasal Cannula O2 Flow Rate 2.0 2.0 3.0 03/22/19 03/22/19 03/23/19 03/23/19 20:31 23:00 03:00 07:00 Temp 98.1 97.8 97.7 98.1 97.8 97.7 Pulse 82 72 70 74 Resp 14 18 22 B/P (MAP) 111/38 116/42 (66) 104/53 (70) 139/65 (89) Pulse Ox 99 100 99 O2 Delivery Nasal Cannula Nasal Cannula Nasal Cannula O2 Flow Rate 2.0 2.0 2.0 03/23/19 03/23/19 03/23/19 08:30 08:35 09:36 Pulse 74 B/P (MAP) 139/65 Pulse Ox 99 99 O2 Delivery Nasal Cannula Nasal Cannula O2 Flow Rate 2.0 2.0 Intake and Output 5/1/19 5/1/19 5/2/19 14:59 22:59 06:59 Intake Total 240 ml 480 ml 340 ml Balance 240 ml 480 ml 340 ml CARMITA WALL MD March 23, 2019 10:19
--- NOTE | 2019-03-23 10:20 | PDOC ---
SUBJECTIVE ROS Late entry -- Pt seen on HD on 03/22 - tolerating well OBJECTIVE Vital Signs Vital Signs Date Time Temp Pulse Resp B/P (MAP) Pulse Ox O2 Delivery O2 Flow Rate FiO2 03/23/19 09:36 99 Nasal Cannula 2.0 03/23/19 08:35 74 139/65 03/23/19 07:00 97.7 22 97.7 I & 0 Intake and Output 03/23/19 06:59 Intake Total 1060 ml Balance 1060 ml Intake Oral 1060 ml # Voids 1 PHYSICAL EXAM Physical Exam GENERAL: morbidly obese. NAD HEENT: OM moist NECK: Supple. CARDIOVASCULAR: S1, S2. LUNGS: Clear to auscultation. Non labored ABDOMEN: Obese No Phillips. EXTREMITIES: healed scar in the gluteal, extremities. No edema. AV shunts in both upper extremities, right upper arm using for dialysis. 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 DIAGNOSIS/ASSESSMENT Assessment & Plan ESRD- On HD MWF Seen on HD on 03/22, tolerating well, continue as ordered Discussed with joiner Severe headache- Neuro following Anemia- Hgb stable, No indication for ZARINA Tremor-like activity, right upper and lower extremity. History of previous stroke with left hemiparesis. On Keppra for seizures. 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 COMMENT/RELEVANT DATA Meds Current Medications Medications (Trade) Dose Ordered Sig/Yumiko Start Time Stop Time Status Last Admin Dose Admin Acetaminophen/ Hydrocodone Bitart (Lortab 5/325) 1 tab PRN Q6HRS PRN 03/20/19 10:15 03/23/19 08:30 1 TAB Albuterol Sulfate (Ventolin Neb Soln) 2.5 mg RTQID 03/20/19 12:00 03/22/19 20:45 2.5 MG Allopurinol (Zyloprim) 100 mg DAILY 03/20/19 11:00 03/23/19 08:37 100 MG Alprazolam (Xanax) 0.25 mg PRN BID PRN 03/20/19 10:15 03/21/19 20:49 0.25 MG Calcium Acetate (Phoslo) 2,001 mg TIDWMEALS 03/20/19 12:00 03/23/19 08:28 2,001 MG Ceftriaxone Sodium (Rocephin) 1 gm Q24H 03/20/19 11:00 03/21/19 14:00 DC 03/21/19 13:53 1 GM Cephalexin HCl (Keflex) 500 mg QHS 03/21/19 21:00 03/22/19 20:30 500 MG Cinacalcet (Sensipar) 30 mg DAILY 03/20/19 11:00 03/23/19 08:38 30 MG Citalopram Hydrobromide (CeleXA) 10 mg DAILY 03/20/19 11:00 03/23/19 08:36 10 MG Clonidine HCl (Catapres) 0.1 mg TID 03/20/19 14:00 03/23/19 08:35 0.1 MG Clopidogrel Bisulfate (Plavix) 75 mg DAILY 03/20/19 11:00 03/23/19 08:28 75 MG Cyclobenzaprine HCl (Flexeril) 10 mg BID 03/20/19 11:00 03/23/19 08:38 10 MG Dextrose (Dextrose 50%-Water Syringe) 12.5 gm PRN Q15MIN PRN 03/20/19 08:15 Diphenhydramine HCl (Benadryl) 25 mg 1X PRN PRN 03/22/19 08:30 03/23/19 08:29 DC Gabapentin (Neurontin) 300 mg HS 03/20/19 21:00 03/22/19 20:31 300 MG Hydralazine HCl (Apresoline Inj) 20 mg 1X ONCE 03/20/19 07:30 03/20/19 07:31 DC 03/20/19 07:54 20 MG Info (PHARMACY MONITORING -- do not chart) 1 each PRN DAILY PRN 03/22/19 08:30 Insulin Human Lispro (HumaLOG) 0-5 UNITS TIDWMEALS 03/20/19 12:00 03/21/19 17:00 3 UNITS Ketorolac Tromethamine (Toradol 15mg Vial) 15 mg PRN Q6HRS PRN 03/21/19 09:00 03/26/19 08:59 Lactobacillus Rhamnosus (Culturelle) 1 cap BID 03/21/19 21:00 03/23/19 08:35 1 CAP Levetiracetam (Keppra) 1,000 mg BID 03/20/19 11:00 03/23/19 08:29 1,000 MG Lorazepam (Ativan) 0.5 mg 1X ONCE 03/20/19 08:00 03/20/19 08:01 DC 03/20/19 07:59 0.5 MG Metoclopramide HCl (Reglan) 2.5 mg QIDACHS 03/20/19 11:30 03/23/19 08:38 2.5 MG Metoprolol Succinate (Toprol Xl) 25 mg QHS 03/22/19 21:00 03/22/19 20:31 25 MG Non-Formulary Medication (Levalbuterol Tartrate (Xopenex Hfa)) 2 puff QID 03/20/19 13:00 UNV Non-Formulary Medication (Naloxegol Oxalate (Movantik)) 25 mg DAILY 03/21/19 09:00 03/22/19 08:35 DC Ondansetron HCl (Zofran) 4 mg PRN Q8HRS PRN 03/20/19 08:15 03/21/19 08:14 DC Prochlorperazine Edisylate (Compazine) 10 mg PRN Q6HRS PRN 03/21/19 09:00 Sennosides (Senna) 8.6 mg BID 03/20/19 10:30 03/23/19 08:37 8.6 MG Simvastatin (Zocor) 40 mg QHS 03/20/19 21:00 03/22/19 20:31 40 MG Sodium Chloride 1,000 ml @ 400 mls/hr Q2H30M PRN 03/22/19 08:24 03/22/19 20:23 DC Vitamin B Complex/ Vitamin C (Makayla-Britton) 1 tab DAILY 03/20/19 11:00 03/23/19 08:33 1 TAB Lab Laboratory Tests Test 03/22/19 12:25 03/22/19 13:30 03/22/19 17:15 03/22/19 21:12 Glucose (Fingerstick) 102 mg/dL (70-99) 120 mg/dL (70-99) 145 mg/dL (70-99) White Blood Count 3.5 x10^3/uL (4.0-11.0) Red Blood Count 3.41 x10^6/uL (3.50-5.40) Hemoglobin 10.5 g/dL (12.0-15.5) Hematocrit 33.6 % (36.0-47.0) Mean Corpuscular Volume 98 fL (79-100) Mean Corpuscular Hemoglobin 31 pg (25-35) Mean Corpuscular Hemoglobin Concent 31 g/dL (31-37) Red Cell Distribution Width 14.2 % (11.5-14.5) Platelet Count 122 x10^3/uL (140-400) Neutrophils (%) (Auto) 48 % (31-73) Lymphocytes (%) (Auto) 34 % (24-48) Monocytes (%) (Auto) 14 % (0-9) Eosinophils (%) (Auto) 3 % (0-3) Basophils (%) (Auto) 1 % (0-3) Neutrophils # (Auto) 1.7 x10^3uL (1.8-7.7) Lymphocytes # (Auto) 1.2 x10^3/uL (1.0-4.8) Monocytes # (Auto) 0.5 x10^3/uL (0.0-1.1) Eosinophils # (Auto) 0.1 x10^3/uL (0.0-0.7) Basophils # (Auto) 0.0 x10^3/uL (0.0-0.2) Sodium Level 136 mmol/L (136-145) Potassium Level 4.1 mmol/L (3.5-5.1) Chloride Level 99 mmol/L (98-107) Carbon Dioxide Level 32 mmol/L (21-32) Anion Gap 5 (6-14) Blood Urea Nitrogen 20 mg/dL (7-20) Creatinine 4.1 mg/dL (0.6-1.0) Estimated GFR (Cockcroft-Gault) 13.1 Glucose Level 129 mg/dL (70-99) Calcium Level 9.1 mg/dL (8.5-10.1) Thyroid Stimulating Hormone (TSH) 2.964 uIU/mL (0.358-3.74) Test 03/23/19 08:34 Glucose (Fingerstick) 151 mg/dL (70-99) Results All relevant outside records, renal labs, imaging studies, telemetry/EKG's were reviewed. LILI OCASIO MD March 23, 2019 10:20
[2019-03-23] MEDS ORDERED: CEPH-264 PO (10:25)
[2019-03-23] MEDS ORDERED: METO-239 PO (10:25)
[2019-03-23 11:00] VITALS: BP 150/73
--- NOTE | 2019-03-23 12:05 | PDOC ---
CARDIO Progress Notes Date and Time Date of Service 03/23/19 Time of Evaluation 1145 Subjective Subjective: Other (VERA better, but persists) Vitals Vitals Vital Signs Date Time Temp Pulse Resp B/P (MAP) Pulse Ox O2 Delivery O2 Flow Rate FiO2 03/23/19 11:43 99 Nasal Cannula 2.0 03/23/19 11:00 97.9 69 18 150/73 (98) 97.9 Weight Weight [ ] Input and Output Intake and Output Intake and Output 03/23/19 06:59 Intake Total 1060 ml Balance 1060 ml Intake Oral 1060 ml # Voids 1 Laboratory Labs Laboratory Tests Test 03/22/19 12:25 03/22/19 13:30 03/22/19 17:15 03/22/19 21:12 Glucose (Fingerstick) 102 mg/dL (70-99) 120 mg/dL (70-99) 145 mg/dL (70-99) White Blood Count 3.5 x10^3/uL (4.0-11.0) Red Blood Count 3.41 x10^6/uL (3.50-5.40) Hemoglobin 10.5 g/dL (12.0-15.5) Hematocrit 33.6 % (36.0-47.0) Mean Corpuscular Volume 98 fL (79-100) Mean Corpuscular Hemoglobin 31 pg (25-35) Mean Corpuscular Hemoglobin Concent 31 g/dL (31-37) Red Cell Distribution Width 14.2 % (11.5-14.5) Platelet Count 122 x10^3/uL (140-400) Neutrophils (%) (Auto) 48 % (31-73) Lymphocytes (%) (Auto) 34 % (24-48) Monocytes (%) (Auto) 14 % (0-9) Eosinophils (%) (Auto) 3 % (0-3) Basophils (%) (Auto) 1 % (0-3) Neutrophils # (Auto) 1.7 x10^3uL (1.8-7.7) Lymphocytes # (Auto) 1.2 x10^3/uL (1.0-4.8) Monocytes # (Auto) 0.5 x10^3/uL (0.0-1.1) Eosinophils # (Auto) 0.1 x10^3/uL (0.0-0.7) Basophils # (Auto) 0.0 x10^3/uL (0.0-0.2) Sodium Level 136 mmol/L (136-145) Potassium Level 4.1 mmol/L (3.5-5.1) Chloride Level 99 mmol/L (98-107) Carbon Dioxide Level 32 mmol/L (21-32) Anion Gap 5 (6-14) Blood Urea Nitrogen 20 mg/dL (7-20) Creatinine 4.1 mg/dL (0.6-1.0) Estimated GFR (Cockcroft-Gault) 13.1 Glucose Level 129 mg/dL (70-99) Calcium Level 9.1 mg/dL (8.5-10.1) Thyroid Stimulating Hormone (TSH) 2.964 uIU/mL (0.358-3.74) Test 03/23/19 08:34 03/23/19 11:07 Glucose (Fingerstick) 151 mg/dL (70-99) 150 mg/dL (70-99) Physical Exam HEENT: Neck Supple W Full Motion Chest: Symmetric LUNGS: Clear to Auscultation, Other (diminished bases) Heart: S1S2, RRR, no murmurs Abdomen: Soft N/T Extremities: No Edema Neurology: alert, follow commands Assessment Assessment 1. Metabolic encephalopathy/VERA: VERA remains but better. Neurology following. Right temporal artery biopsy planned. 2. PSVT; Echo with preserved LV systolic function. HR well controlled with addition of BB. TSH WNL 3. Hx of CVA and seizures. On Keppra 4. HTN: controlled 5. HLP 6. DM2/DPN 7. Morbid obesity with suspected NOLVIA Recommendations Continue BB, clonidine Consider outpatient event monitor and ischemic workup given risk factors. Supportive care Follow neuro MARGARITO Lucas APRN March 23, 2019 12:05
--- NOTE | 2019-03-23 12:09 | PDOC ---
PULMONARY PROGRESS NOTES Subjective no soa Vitals Vital Signs Date Time Temp Pulse Resp B/P (MAP) Pulse Ox O2 Delivery O2 Flow Rate FiO2 03/23/19 11:43 99 Nasal Cannula 2.0 03/23/19 11:00 97.9 69 18 150/73 (98) 97.9 General: Alert, No acute distress Lungs: Clear Cardiovascular: S1, S2 Abdomen: Soft, Other (obese) Extremities: No Edema Labs Laboratory Tests Test 03/21/19 16:49 03/21/19 21:20 03/22/19 12:25 03/22/19 13:30 Glucose (Fingerstick) 217 mg/dL (70-99) 166 mg/dL (70-99) 102 mg/dL (70-99) White Blood Count 3.5 x10^3/uL (4.0-11.0) Red Blood Count 3.41 x10^6/uL (3.50-5.40) Hemoglobin 10.5 g/dL (12.0-15.5) Hematocrit 33.6 % (36.0-47.0) Mean Corpuscular Volume 98 fL (79-100) Mean Corpuscular Hemoglobin 31 pg (25-35) Mean Corpuscular Hemoglobin Concent 31 g/dL (31-37) Red Cell Distribution Width 14.2 % (11.5-14.5) Platelet Count 122 x10^3/uL (140-400) Neutrophils (%) (Auto) 48 % (31-73) Lymphocytes (%) (Auto) 34 % (24-48) Monocytes (%) (Auto) 14 % (0-9) Eosinophils (%) (Auto) 3 % (0-3) Basophils (%) (Auto) 1 % (0-3) Neutrophils # (Auto) 1.7 x10^3uL (1.8-7.7) Lymphocytes # (Auto) 1.2 x10^3/uL (1.0-4.8) Monocytes # (Auto) 0.5 x10^3/uL (0.0-1.1) Eosinophils # (Auto) 0.1 x10^3/uL (0.0-0.7) Basophils # (Auto) 0.0 x10^3/uL (0.0-0.2) Sodium Level 136 mmol/L (136-145) Potassium Level 4.1 mmol/L (3.5-5.1) Chloride Level 99 mmol/L (98-107) Carbon Dioxide Level 32 mmol/L (21-32) Anion Gap 5 (6-14) Blood Urea Nitrogen 20 mg/dL (7-20) Creatinine 4.1 mg/dL (0.6-1.0) Estimated GFR (Cockcroft-Gault) 13.1 Glucose Level 129 mg/dL (70-99) Calcium Level 9.1 mg/dL (8.5-10.1) Thyroid Stimulating Hormone (TSH) 2.964 uIU/mL (0.358-3.74) Test 03/22/19 17:15 03/22/19 21:12 03/23/19 08:34 03/23/19 11:07 Glucose (Fingerstick) 120 mg/dL (70-99) 145 mg/dL (70-99) 151 mg/dL (70-99) 150 mg/dL (70-99) Laboratory Tests Test 03/22/19 12:25 03/22/19 13:30 03/22/19 17:15 03/22/19 21:12 Glucose (Fingerstick) 102 mg/dL (70-99) 120 mg/dL (70-99) 145 mg/dL (70-99) White Blood Count 3.5 x10^3/uL (4.0-11.0) Red Blood Count 3.41 x10^6/uL (3.50-5.40) Hemoglobin 10.5 g/dL (12.0-15.5) Hematocrit 33.6 % (36.0-47.0) Mean Corpuscular Volume 98 fL (79-100) Mean Corpuscular Hemoglobin 31 pg (25-35) Mean Corpuscular Hemoglobin Concent 31 g/dL (31-37) Red Cell Distribution Width 14.2 % (11.5-14.5) Platelet Count 122 x10^3/uL (140-400) Neutrophils (%) (Auto) 48 % (31-73) Lymphocytes (%) (Auto) 34 % (24-48) Monocytes (%) (Auto) 14 % (0-9) Eosinophils (%) (Auto) 3 % (0-3) Basophils (%) (Auto) 1 % (0-3) Neutrophils # (Auto) 1.7 x10^3uL (1.8-7.7) Lymphocytes # (Auto) 1.2 x10^3/uL (1.0-4.8) Monocytes # (Auto) 0.5 x10^3/uL (0.0-1.1) Eosinophils # (Auto) 0.1 x10^3/uL (0.0-0.7) Basophils # (Auto) 0.0 x10^3/uL (0.0-0.2) Sodium Level 136 mmol/L (136-145) Potassium Level 4.1 mmol/L (3.5-5.1) Chloride Level 99 mmol/L (98-107) Carbon Dioxide Level 32 mmol/L (21-32) Anion Gap 5 (6-14) Blood Urea Nitrogen 20 mg/dL (7-20) Creatinine 4.1 mg/dL (0.6-1.0) Estimated GFR (Cockcroft-Gault) 13.1 Glucose Level 129 mg/dL (70-99) Calcium Level 9.1 mg/dL (8.5-10.1) Thyroid Stimulating Hormone (TSH) 2.964 uIU/mL (0.358-3.74) Test 03/23/19 08:34 03/23/19 11:07 Glucose (Fingerstick) 151 mg/dL (70-99) 150 mg/dL (70-99) Medications Active Scripts Medications Dose Route/Sig Max Daily Dose Days Date Category Augmentin 500-125 Tablet (Amoxicillin/Potassium Clav) 1 Each Tablet 1 Tab PO BID 11/25/18 Rx [phoslo] 2,001 Mg PO TID 01/16/17 Reported Movantik (Naloxegol Oxalate) 25 Mg Tablet 25 Mg PO DAILY 01/16/17 Reported Xopenex Hfa (Levalbuterol Tartrate) 15 Gm Hfa.aer.ad 2 Puff IH QID 01/16/17 Reported Keppra (Levetiracetam) 500 Mg Tablet 1 Tab PO BID 07/20/15 Reported Vol-Care Rx Tablet (Vit B Cmplx 3/Fa/Vit C/Biotin) 1 Each Tablet 1 Each PO DAILY 07/20/15 Reported Clopidogrel (Clopidogrel Bisulfate) 75 Mg Tablet 1 Tab PO DAILY 07/20/15 Reported Alprazolam 0.25 Mg Tablet 1 Tab PO PRN BID PRN 07/20/15 Reported Celexa (Citalopram Hydrobromide) 10 Mg Tablet 1 Tab PO DAILY 07/20/15 Reported Allopurinol 100 Mg Tablet 1 Tab PO DAILY 07/20/15 Reported Sensipar (Cinacalcet Hcl) 30 Mg Tablet 1 Tab PO DAILY 07/20/15 Reported Simvastatin 40 Mg Tablet 1 Tab PO QHS 07/20/15 Reported Gabapentin (Gabapentin) 300 Mg Capsule 1 Cap PO HS 07/20/15 Reported Senna (Sennosides) 8.6 Mg Capsule 8.6 Mg PO BID 07/20/15 Reported Cyclobenzaprine Hcl 10 Mg Tablet 1 Tab PO BID 07/20/15 Reported Reglan (Metoclopramide Hcl) 10 Mg Tablet 5 Mg PO QIDACHS 07/20/15 Reported Clonidine Hcl 0.1 Mg Tablet 1 Tab PO TID 07/20/15 Reported Hydrocodone-Apap 5-325 (Hydrocodone Bit/Acetaminophen) 1 Each Tablet 1 Tab PO PRN Q6HRS PRN 07/20/15 Reported Impression . 1. Clinical presentation compatible with obstructive sleep apnea. 2. Cerebrovascular accident with left-sided hemiparesis. 3. Morbid obesity. 4. End-stage renal disease, on hemodialysis. 5. Headaches. 6. History of epilepsy. Plan . 1. Unfortunately, the patient's insurance precludes polysomnogram. They may in some cases approve sleep study but no CPAP coverage by [place] Medicaid 2. Once she becomes eligible for Medicare, one could certainly obtain a polysomnogram. 3. The patient has oxygen at home. Continue oxygen at bedtime. I do appreciate the privilege in sharing the patient's care. d/w JUAN C ALVES MD March 23, 2019 12:09
--- NOTE | 2019-03-23 14:16 | PDOC2 ---
IVONNEYONNY L COMPONENT DESIGN ENGINEER 03/23/19 1416: CONSULT Date of Consult Date of Consult DATE: 03/23/19 TIME: 14:15 Reason for Consult Reason for Consult: Temporal artery biopsy Referring Physician Referring Physician: Dr Villanueva Identification/Chief Complaint Chief Complaint headache Source Source: Chart review, Patient History of Present Illness Reason for Visit: headaches and tremors started last wednesday multiple medical issues- stroke hx, CRF, on dialysis Treated for UTI concern for Temporal artery tenderness today, consult for biopsy Past Medical History Cardiovascular: CHF, HTN, Other (deep vein thrombosis) Pulmonary: Asthma, Bronchitis, COPD, Other (sleep apnea) CENTRAL NERVOUS SYSTEM: CVA, Seizure GI: Constipation, GERD Heme/Onc: Anemia NOS Psych: Anxiety, Depression Musculoskeletal: Other Rheumatologic: Gout, Rheumatoid arthritis Renal/: Chronic renal failure (on dialysis) Endocrine: Diabetes, Hyperparathyroidism Past Surgical History Past Surgical History: Cholecystectomy, , Hysterectomy, Other (pannus removal, dialysis catheter placement) Family History Family History: Coronary Artery Disease, Hypertension, Kidney Disease Social History No ALCOHOL: none Drugs: None Lives: with Family Current Problem List Problem List Problems Medical Problems: (1) ESRD (end stage renal disease) Status: Acute (2) Tremulousness Status: Acute (3) UTI (urinary tract infection) Status: Acute Current Medications Current Medications Current Medications Hydralazine HCl (Apresoline Inj) 20 mg 1X ONCE IVP Last administered on 03/20/19at 07:54; Start 03/20/19 at 07:30; Stop 03/20/19 at 07:31; Status DC Lorazepam (Ativan) 0.5 mg 1X ONCE IV Last administered on 03/20/19at 07:59; Start 03/20/19 at 08:00; Stop 03/20/19 at 08:01; Status DC Ondansetron HCl (Zofran) 4 mg PRN Q8HRS PRN IV NAUSEA/VOMITING; Start 03/20/19 at 08:15; Stop 03/21/19 at 08:14; Status DC Insulin Human Lispro (HumaLOG) 0-5 UNITS TIDWMEALS SQ Last administered on 03/21/19at 17:00; Start 03/20/19 at 12:00 Dextrose (Dextrose 50%-Water Syringe) 12.5 gm PRN Q15MIN PRN IV SEE COMMENTS; Start 03/20/19 at 08:15 Ceftriaxone Sodium (Rocephin) 1 gm Q24H IVP Last administered on 03/21/19 13:53; Start 03/20/19 at 11:00; Stop 03/21/19 at 14:00; Status DC Allopurinol (Zyloprim) 100 mg DAILY PO Last administered on 03/23/19 08:37; Start 03/20/19 at 11:00 Alprazolam (Xanax) 0.25 mg PRN BID PRN PO ANXIETY / AGITATION Last administered on 03/21/19 20:49; Start 03/20/19 at 10:15 Cinacalcet (Sensipar) 30 mg DAILY PO Last administered on 03/23/19 08:38; Start 03/20/19 at 11:00 Citalopram Hydrobromide (CeleXA) 10 mg DAILY PO Last administered on 03/23/19 08:36; Start 03/20/19 at 11:00 Clonidine HCl (Catapres) 0.1 mg TID PO Last administered on 03/23/19 08:35; Start 03/20/19 at 14:00 Clopidogrel Bisulfate (Plavix) 75 mg DAILY PO Last administered on 03/23/19 08:28; Start 03/20/19 at 11:00 Cyclobenzaprine HCl (Flexeril) 10 mg BID PO Last administered on 03/23/19 08:38; Start 03/20/19 at 11:00 Gabapentin (Neurontin) 300 mg HS PO Last administered on 03/22/19 20:31; Start 03/20/19 at 21:00 Acetaminophen/ Hydrocodone Bitart (Lortab 5/325) 1 tab PRN Q6HRS PRN PO MODERATE PAIN Last administered on 03/23/19 08:30; Start 03/20/19 at 10:15 Levetiracetam (Keppra) 500 mg BID PO ; Start 03/20/19 at 11:00; Stop 03/20/19 at 11:00; Status DC Metoclopramide HCl (Reglan) 2.5 mg QIDACHS PO Last administered on 03/23/19 11:22; Start 03/20/19 at 11:30 Non-Formulary Medication (Levalbuterol Tartrate (Xopenex Hfa)) 2 puff QID IH ; Start 03/20/19 at 13:00; Status UNV Non-Formulary Medication (Naloxegol Oxalate (Movantik)) 25 mg DAILY PO ; Start 03/21/19 at 09:00; Stop 03/22/19 at 08:35; Status DC Sennosides (Senna) 8.6 mg BID PO Last administered on 03/23/19 08:37; Start 03/20/19 at 10:30 Simvastatin (Zocor) 40 mg QHS PO Last administered on 03/22/19at 20:31; Start 03/20/19 at 21:00 Vitamin B Complex/ Vitamin C (Makayla-Britton) 1 tab DAILY PO Last administered on 03/23/19at 08:33; Start 03/20/19 at 11:00 Calcium Acetate (Phoslo) 2,001 mg TIDWMEALS PO Last administered on 03/23/19 08:28; Start 03/20/19 at 12:00 Levetiracetam (Keppra) 1,000 mg BID PO Last administered on 03/23/19at 08:29; Start 03/20/19 at 11:00 Albuterol Sulfate (Ventolin Neb Soln) 2.5 mg RTQID NEB Last administered on 03/23/19at 11:42; Start 03/20/19 at 12:00 Sodium Chloride 1,000 ml @ 1,000 mls/hr Q1H PRN IV hypotension; Start 03/20/19 at 13:30; Stop 03/20/19 at 19:29; Status DC Sodium Chloride 1,000 ml @ 400 mls/hr Q2H30M PRN IV PATENCY; Start 03/20/19 at 13:30; Stop 03/21/19 at 01:29; Status DC Info (PHARMACY MONITORING -- do not chart) 1 each PRN DAILY PRN MC SEE COMME NTS; Start 03/20/19 at 14:15; Status UNV Info (PHARMACY MONITORING -- do not chart) 1 each PRN DAILY PRN MC SEE COMMENTS; Start 03/20/19 at 14:15; Status Cancel Ketorolac Tromethamine (Toradol 15mg Vial) 15 mg PRN Q6HRS PRN IV PAIN; Start 03/21/19 at 09:00; Stop 03/26/19 at 08:59 Diphenhydramine HCl (Benadryl) 25 mg PRN Q6HRS PRN IVP ITCHING; Start 03/21/19 at 09:00 Prochlorperazine Edisylate (Compazine) 10 mg PRN Q6HRS PRN IV NAUSEA/VOMITING; Start 03/21/19 at 09:00 Cephalexin HCl (Keflex) 500 mg BID PO ; Start 03/21/19 at 21:00; Stop 03/21/19 at 21:00; Status DC Lactobacillus Rhamnosus (Culturelle) 1 cap BID PO Last administered on 03/23/19at 08:35; Start 03/21/19 at 21:00 Cephalexin HCl (Keflex) 500 mg QHS PO Last administered on 03/22/19at 20:30; St art 03/21/19 at 21:00 Sodium Chloride 1,000 ml @ 1,000 mls/hr Q1H PRN IV hypotension; Start 03/22/19 at 08:24; Stop 03/22/19 at 14:23; Status DC Diphenhydramine HCl (Benadryl) 25 mg 1X PRN PRN IV ITCHING; Start 03/22/19 at 08:30; Stop 03/23/19 at 08:29; Status DC Diphenhydramine HCl (Benadryl) 25 mg 1X PRN PRN IV ITCHING; Start 03/22/19 at 08:30; Stop 03/23/19 at 08:29; Status DC Sodium Chloride 1,000 ml @ 400 mls/hr Q2H30M PRN IV PATENCY; Start 03/22/19 at 08:24; Stop 03/22/19 at 20:23; Status DC Info (PHARMACY MONITORING -- do not chart) 1 each PRN DAILY PRN MC SEE COMMENTS; Start 03/22/19 at 08:30; Status UNV Info (PHARMACY MONITORING -- do not chart) 1 each PRN DAILY PRN MC SEE COMMENTS; Start 03/22/19 at 08:30 Metoprolol Succinate (Toprol Xl) 25 mg QHS PO Last administered on 03/22/19at 20:31; Start 03/22/19 at 21:00 Active Scripts Active Keflex (Cephalexin) 500 Mg Capsule 1 Cap PO BID Metoprolol Succinate ( Xl ) (Metoprolol Succinate) 25 Mg Tab.er.24h 25 Mg PO QHS 30 Days Reported [phoslo] 2,001 Mg PO TID Movantik (Naloxegol Oxalate) 25 Mg Tablet 25 Mg PO DAILY Xopenex Hfa (Levalbuterol Tartrate) 15 Gm Hfa.aer.ad 2 Puff IH QID Keppra (Levetiracetam) 500 Mg Tablet 1 Tab PO BID Vol-Care Rx Tablet (Vit B Cmplx 3/Fa/Vit C/Biotin) 1 Each Tablet 1 Each PO DAILY Clopidogrel (Clopidogrel Bisulfate) 75 Mg Tablet 1 Tab PO DAILY Alprazolam 0.25 Mg Tablet 1 Tab PO PRN BID PRN Celexa (Citalopram Hydrobromide) 10 Mg Tablet 1 Tab PO DAILY Allopurinol 100 Mg Tablet 1 Tab PO DAILY Sensipar (Cinacalcet Hcl) 30 Mg Tablet 1 Tab PO DAILY Simvastatin 40 Mg Tablet 1 Tab PO QHS Gabapentin (Gabapentin) 300 Mg Capsule 1 Cap PO HS Senna (Sennosides) 8.6 Mg Capsule 8.6 Mg PO BID Cyclobenzaprine Hcl 10 Mg Tablet 1 Tab PO BID Reglan (Metoclopramide Hcl) 10 Mg Tablet 5 Mg PO QIDACHS Clonidine Hcl 0.1 Mg Tablet 1 Tab PO TID Hydrocodone-Apap 5-325 (Hydrocodone Bit/Acetaminophen) 1 Each Tablet 1 Tab PO PRN Q6HRS PRN Allergies Allergies: Coded Allergies: No Known Drug Allergies (Unverified , 02/07/19) ROS General: No: Chills, Other (fevers) PSYCHOLOGICAL ROS: YES: Memory difficulties; No: Depression Eyes: Yes Blurry vision, Yes Decreased vision; No Double vision Hematological and Lymphatic: YES: Bleeding Problems (on plavix) Respiratory: YES: Shortness of breath; No: Cough Cardiovascular: No Chest Pain, No Palpitations Gastrointestinal: No Nausea, No Abdominal Pain Genitourinary: No Dysuria, No Hematuria Musculoskeletal: Yes Joint Pain, Yes Muscle Pain Neurological: Yes Confusion, Yes Impaired Coord/balance Skin: No Pruritus, No Rash Physical Exam General: Alert, Cooperative, No acute distress HEENT: Atraumatic, Other (tenderness to R TA area) Lungs: Clear to auscultation, Normal air movement Heart: Regular rate, Normal S1, Normal S2 Abdomen: Soft, Other (epigastric TTP) Extremities: No clubbing, No cyanosis Skin: No rashes, No breakdown Neuro: Normal gait, Normal speech Psych/Mental Status: Mental status NL, Mood NL MUSCULOSKELETAL: No deformity, No swelling Vitals VITALS Vital Signs Date Time Temp Pulse Resp B/P (MAP) Pulse Ox O2 Delivery O2 Flow Rate FiO2 03/23/19 11:43 99 Nasal Cannula 2.0 03/23/19 11:00 97.9 69 18 150/73 (98) 97.9 Labs Labs Laboratory Tests Test 03/21/19 16:49 03/21/19 21:20 03/22/19 12:25 03/22/19 13:30 Glucose (Fingerstick) 217 mg/dL (70-99) 166 mg/dL (70-99) 102 mg/dL (70-99) White Blood Count 3.5 x10^3/uL (4.0-11.0) Red Blood Count 3.41 x10^6/uL (3.50-5.40) Hemoglobin 10.5 g/dL (12.0-15.5) Hematocrit 33.6 % (36.0-47.0) Mean Corpuscular Volume 98 fL (79-100) Mean Corpuscular Hemoglobin 31 pg (25-35) Mean Corpuscular Hemoglobin Concent 31 g/dL (31-37) Red Cell Distribution Width 14.2 % (11.5-14.5) Platelet Count 122 x10^3/uL (140-400) Neutrophils (%) (Auto) 48 % (31-73) Lymphocytes (%) (Auto) 34 % (24-48) Monocytes (%) (Auto) 14 % (0-9) Eosinophils (%) (Auto) 3 % (0-3) Basophils (%) (Auto) 1 % (0-3) Neutrophils # (Auto) 1.7 x10^3uL (1.8-7.7) Lymphocytes # (Auto) 1.2 x10^3/uL (1.0-4.8) Monocytes # (Auto) 0.5 x10^3/uL (0.0-1.1) Eosinophils # (Auto) 0.1 x10^3/uL (0.0-0.7) Basophils # (Auto) 0.0 x10^3/uL (0.0-0.2) Sodium Level 136 mmol/L (136-145) Potassium Level 4.1 mmol/L (3.5-5.1) Chloride Level 99 mmol/L (98-107) Carbon Dioxide Level 32 mmol/L (21-32) Anion Gap 5 (6-14) Blood Urea Nitrogen 20 mg/dL (7-20) Creatinine 4.1 mg/dL (0.6-1.0) Estimated GFR (Cockcroft-Gault) 13.1 Glucose Level 129 mg/dL (70-99) Calcium Level 9.1 mg/dL (8.5-10.1) Thyroid Stimulating Hormone (TSH) 2.964 uIU/mL (0.358-3.74) Test 03/22/19 17:15 03/22/19 21:12 03/23/19 08:34 03/23/19 11:07 Glucose (Fingerstick) 120 mg/dL (70-99) 145 mg/dL (70-99) 151 mg/dL (70-99) 150 mg/dL (70-99) Laboratory Tests Test 03/22/19 17:15 03/22/19 21:12 03/23/19 08:34 03/23/19 11:07 Glucose (Fingerstick) 120 mg/dL (70-99) 145 mg/dL (70-99) 151 mg/dL (70-99) 150 mg/dL (70-99) Assessment/Plan Assessment/Plan headaches, tremors request for TA bx on plavix --will review with SYL Arauz MD 03/23/19 1525: CONSULT Assessment/Plan Assessment/Plan Pt seen and examined. Agree with Ms. Bustamante's note Pt with c/o right temporal VERA TTP over temp art will plan biopsy of right temporal artery in AM R/R/B/A d/w pt Pt is at increased risk for bleeding, given plavix, but risk of stroke if off for prolonged time. She appears to understand, and agrees to proceed. Pt noted daughter in favor of surgery. Thanks for consult! YONNY CORONADO APRN March 23, 2019 14:16 SYL JAMES MD March 23, 2019 15:25
--- NOTE | 2019-03-23 14:19 | PDOC ---
PROGRESS NOTES Assessment Problems Medical Problems: (1) ESRD (end stage renal disease) Status: Acute (2) Tremulousness Status: Acute (3) UTI (urinary tract infection) Status: Acute Metabolic encephalopathy, renal failure Headaches, better, still 5/10, elevated ESR, now with right temporal artery tenderness. Myoclonus, resolved, negative EEG 03/21, which does show evidence of encephalopathy, though Prior right middle cerebral artery stroke. History of epilepsy, EEG 03/21 negative for epileptic activity Episode of PSVT and apnea 03/21 night, cardiology following Plan I discussed risks, benefits, alternatives, I would like to proceed with right temporal artery biopsy. Hold on steroids until after biopsy in this case. Aim to discharge tomorrow after the biopsy, we can start some steroids over the weekend then discontinue them if the biopsy is negative. Continue levetiracetam Migraine cocktail, ketorolac, diphenhydramine, prochlorperazine, has not used (IV out) Hold on lumbar puncture. Also discussed with Dr. Lobo Subjective Headache is 5/10, right side, in the latter-day and around the right ear Objective Vital Signs Date Time Temp Pulse Resp B/P (MAP) Pulse Ox O2 Delivery O2 Flow Rate FiO2 03/23/19 11:43 99 Nasal Cannula 2.0 03/23/19 11:00 97.9 69 18 150/73 (98) 97.9 Intake and Output 03/23/19 06:59 Intake Total 1060 ml Balance 1060 ml Intake Oral 1060 ml # Voids 1 PHYSICAL EXAM Somnulant, alerts easily, oriented to time, place and person. PERRL. EOMI. CN: Spastic dysarthria, left central facial weakness Muscle tone: increased on left. Muscle strength: 2/5 on left DTR: 2+ Plantar reflex: flexor Gait: not examined in bed. Sensory exam: no abnormal findings. No cerebellar signs elicited. Does have some right temporal artery tenderness now Review of Relevant I have reviewed the following items gabbi (where applicable) has been applied. Labs Laboratory Tests Test 03/21/19 16:49 03/21/19 21:20 03/22/19 12:25 03/22/19 13:30 Glucose (Fingerstick) 217 mg/dL (70-99) 166 mg/dL (70-99) 102 mg/dL (70-99) White Blood Count 3.5 x10^3/uL (4.0-11.0) Red Blood Count 3.41 x10^6/uL (3.50-5.40) Hemoglobin 10.5 g/dL (12.0-15.5) Hematocrit 33.6 % (36.0-47.0) Mean Corpuscular Volume 98 fL (79-100) Mean Corpuscular Hemoglobin 31 pg (25-35) Mean Corpuscular Hemoglobin Concent 31 g/dL (31-37) Red Cell Distribution Width 14.2 % (11.5-14.5) Platelet Count 122 x10^3/uL (140-400) Neutrophils (%) (Auto) 48 % (31-73) Lymphocytes (%) (Auto) 34 % (24-48) Monocytes (%) (Auto) 14 % (0-9) Eosinophils (%) (Auto) 3 % (0-3) Basophils (%) (Auto) 1 % (0-3) Neutrophils # (Auto) 1.7 x10^3uL (1.8-7.7) Lymphocytes # (Auto) 1.2 x10^3/uL (1.0-4.8) Monocytes # (Auto) 0.5 x10^3/uL (0.0-1.1) Eosinophils # (Auto) 0.1 x10^3/uL (0.0-0.7) Basophils # (Auto) 0.0 x10^3/uL (0.0-0.2) Sodium Level 136 mmol/L (136-145) Potassium Level 4.1 mmol/L (3.5-5.1) Chloride Level 99 mmol/L (98-107) Carbon Dioxide Level 32 mmol/L (21-32) Anion Gap 5 (6-14) Blood Urea Nitrogen 20 mg/dL (7-20) Creatinine 4.1 mg/dL (0.6-1.0) Estimated GFR (Cockcroft-Gault) 13.1 Glucose Level 129 mg/dL (70-99) Calcium Level 9.1 mg/dL (8.5-10.1) Thyroid Stimulating Hormone (TSH) 2.964 uIU/mL (0.358-3.74) Test 03/22/19 17:15 03/22/19 21:12 03/23/19 08:34 03/23/19 11:07 Glucose (Fingerstick) 120 mg/dL (70-99) 145 mg/dL (70-99) 151 mg/dL (70-99) 150 mg/dL (70-99) Laboratory Tests Test 03/22/19 17:15 03/22/19 21:12 03/23/19 08:34 03/23/19 11:07 Glucose (Fingerstick) 120 mg/dL (70-99) 145 mg/dL (70-99) 151 mg/dL (70-99) 150 mg/dL (70-99) Medications Current Medications Hydralazine HCl (Apresoline Inj) 20 mg 1X ONCE IVP Last administered on 03/20/19at 07:54; Start 03/20/19 at 07:30; Stop 03/20/19 at 07:31; Status DC Lorazepam (Ativan) 0.5 mg 1X ONCE IV Last administered on 03/20/19at 07:59; Start 03/20/19 at 08:00; Stop 03/20/19 at 08:01; Status DC Ondansetron HCl (Zofran) 4 mg PRN Q8HRS PRN IV NAUSEA/VOMITING; Start 03/20/19 at 08:15; Stop 03/21/19 at 08:14; Status DC Insulin Human Lispro (HumaLOG) 0-5 UNITS TIDWMEALS SQ Last administered on 03/21/19at 17:00; Start 03/20/19 at 12:00 Dextrose (Dextrose 50%-Water Syringe) 12.5 gm PRN Q15MIN PRN IV SEE COMMENTS; Start 03/20/19 at 08:15 Ceftriaxone Sodium (Rocephin) 1 gm Q24H IVP Last administered on 03/21/19at 13:53; Start 03/20/19 at 11:00; Stop 03/21/19 at 14:00; Status DC Allopurinol (Zyloprim) 100 mg DAILY PO Last administered on 03/23/19at 08:37; Start 03/20/19 at 11:00 Alprazolam (Xanax) 0.25 mg PRN BID PRN PO ANXIETY / AGITATION Last administered on 03/21/19at 20:49; Start 03/20/19 at 10:15 Cinacalcet (Sensipar) 30 mg DAILY PO Last administered on 03/23/19 08:38; Start 03/20/19 at 11:00 Citalopram Hydrobromide (CeleXA) 10 mg DAILY PO Last administered on 03/23/19 08:36; Start 03/20/19 at 11:00 Clonidine HCl (Catapres) 0.1 mg TID PO Last administered on 03/23/19 08:35; St art 03/20/19 at 14:00 Clopidogrel Bisulfate (Plavix) 75 mg DAILY PO Last administered on 03/23/19 08:28; Start 03/20/19 at 11:00 Cyclobenzaprine HCl (Flexeril) 10 mg BID PO Last administered on 03/23/19 08:38; Start 03/20/19 at 11:00 Gabapentin (Neurontin) 300 mg HS PO Last administered on 03/22/19 20:31; Start 03/20/19 at 21:00 Acetaminophen/ Hydrocodone Bitart (Lortab 5/325) 1 tab PRN Q6HRS PRN PO MODERATE PAIN Last administered on 03/23/19 08:30; Start 03/20/19 at 10:15 Levetiracetam (Keppra) 500 mg BID PO ; Start 03/20/19 at 11:00; Stop 03/20/19 at 11:00; Status DC Metoclopramide HCl (Reglan) 2.5 mg QIDACHS PO Last administered on 03/23/19 11:22; Start 03/20/19 at 11:30 Non-Formulary Medication (Levalbuterol Tartrate (Xopenex Hfa)) 2 puff QID IH ; Start 03/20/19 at 13:00; Status UNV Non-Formulary Medication (Naloxegol Oxalate (Movantik)) 25 mg DAILY PO ; Start 03/21/19 at 09:00; Stop 03/22/19 at 08:35; Status DC Sennosides (Senna) 8.6 mg BID PO Last administered on 03/23/19 08:37; Start 03/20/19 at 10:30 Simvastatin (Zocor) 40 mg QHS PO Last administered on 03/22/19 20:31; Start 03/20/19 at 21:00 Vitamin B Complex/ Vitamin C (Makayla-Britton) 1 tab DAILY PO Last administered on 03/23/19at 08:33; Start 03/20/19 at 11:00 Calcium Acetate (Phoslo) 2,001 mg TIDWMEALS PO Last administered on 03/23/19at 08:28; Start 03/20/19 at 12:00 Levetiracetam (Keppra) 1,000 mg BID PO Last administered on 03/23/19at 08:29; Start 03/20/19 at 11:00 Albuterol Sulfate (Ventolin Neb Soln) 2.5 mg RTQID NEB Last administered on 03/23/19at 11:42; Start 03/20/19 at 12:00 Sodium Chloride 1,000 ml @ 1,000 mls/hr Q1H PRN IV hypotension; Start 03/20/19 at 13:30; Stop 03/20/19 at 19:29; Status DC Sodium Chloride 1,000 ml @ 400 mls/hr Q2H30M PRN IV PATENCY; Start 03/20/19 at 13:30; Stop 03/21/19 at 01:29; Status DC Info (PHARMACY MONITORING -- do not chart) 1 each PRN DAILY PRN MC SEE COMMENTS; Start 03/20/19 at 14:15; Status UNV Info (PHARMACY MONITORING -- do not chart) 1 each PRN DAILY PRN MC SEE COMMENTS; Start 03/20/19 at 14:15; Status Cancel Ketorolac Tromethamine (Toradol 15mg Vial) 15 mg PRN Q6HRS PRN IV PAIN; Start 03/21/19 at 09:00; Stop 03/26/19 at 08:59 Diphenhydramine HCl (Benadryl) 25 mg PRN Q6HRS PRN IVP ITCHING; Start 03/21/19 at 09:00 Prochlorperazine Edisylate (Compazine) 10 mg PRN Q6HRS PRN IV NAUSEA/VOMITING; Start 03/21/19 at 09:00 Cephalexin HCl (Keflex) 500 mg BID PO ; Start 03/21/19 at 21:00; Stop 03/21/19 at 21:00; Status DC Lactobacillus Rhamnosus (Culturelle) 1 cap BID PO Last administered on 03/23/19at 08:35; Start 03/21/19 at 21:00 Cephalexin HCl (Keflex) 500 mg QHS PO Last administered on 03/22/19at 20:30; Start 03/21/19 at 21:00 Sodium Chloride 1,000 ml @ 1,000 mls/hr Q1H PRN IV hypotension; Start 03/22/19 at 08:24; Stop 03/22/19 at 14:23; Status DC Diphenhydramine HCl (Benadryl) 25 mg 1X PRN PRN IV ITCHING; Start 03/22/19 at 08:30; Stop 03/23/19 at 08:29; Status DC Diphenhydramine HCl (Benadryl) 25 mg 1X PRN PRN IV ITCHING; Start 03/22/19 at 08:30; Stop 03/23/19 at 08:29; Status DC Sodium Chloride 1,000 ml @ 400 mls/hr Q2H30M PRN IV PATENCY; Start 03/22/19 at 08:24; Stop 03/22/19 at 20:23; Status DC Info (PHARMACY MONITORING -- do not chart) 1 each PRN DAILY PRN MC SEE COMMENTS; Start 03/22/19 at 08:30; Status UNV Info (PHARMACY MONITORING -- do not chart) 1 each PRN DAILY PRN MC SEE COMMENTS; Start 03/22/19 at 08:30 Metoprolol Succinate (Toprol Xl) 25 mg QHS PO Last administered on 03/22/19at 20:31; Start 03/22/19 at 21:00 Active Scripts Active Keflex (Cephalexin) 500 Mg Capsule 1 Cap PO BID Metoprolol Succinate ( Xl ) (Metoprolol Succinate) 25 Mg Tab.er.24h 25 Mg PO QHS 30 Days Reported [phoslo] 2,001 Mg PO TID Movantik (Naloxegol Oxalate) 25 Mg Tablet 25 Mg PO DAILY Xopenex Hfa (Levalbuterol Tartrate) 15 Gm Hfa.aer.ad 2 Puff IH QID Keppra (Levetiracetam) 500 Mg Tablet 1 Tab PO BID Vol-Care Rx Tablet (Vit B Cmplx 3/Fa/Vit C/Biotin) 1 Each Tablet 1 Each PO DAILY Clopidogrel (Clopidogrel Bisulfate) 75 Mg Tablet 1 Tab PO DAILY Alprazolam 0.25 Mg Tablet 1 Tab PO PRN BID PRN Celexa (Citalopram Hydrobromide) 10 Mg Tablet 1 Tab PO DAILY Allopurinol 100 Mg Tablet 1 Tab PO DAILY Sensipar (Cinacalcet Hcl) 30 Mg Tablet 1 Tab PO DAILY Simvastatin 40 Mg Tablet 1 Tab PO QHS Gabapentin (Gabapentin) 300 Mg Capsule 1 Cap PO HS Senna (Sennosides) 8.6 Mg Capsule 8.6 Mg PO BID Cyclobenzaprine Hcl 10 Mg Tablet 1 Tab PO BID Reglan (Metoclopramide Hcl) 10 Mg Tablet 5 Mg PO QIDACHS Clonidine Hcl 0.1 Mg Tablet 1 Tab PO TID Hydrocodone-Apap 5-325 (Hydrocodone Bit/Acetaminophen) 1 Each Tablet 1 Tab PO PRN Q6HRS PRN Vitals/I & O Vital Sign - Last 24 Hours 03/22/19 03/22/19 03/22/19 03/22/19 15:00 15:15 18:32 19:00 Temp 98.1 98.2 98.1 98.2 Pulse 74 82 Resp 20 20 14 B/P (MAP) 133/55 (81) 111/38 (62) Pulse Ox 98 96 O2 Delivery Nasal Cannula Nasal Cannula Nasal Cannula Nasal Cannula O2 Flow Rate 2.0 2.0 2.0 2.0 03/22/19 03/22/19 03/22/19 03/22/19 20:00 20:31 20:31 23:00 Temp 98.1 98.1 Pulse 82 82 72 Resp 14 B/P (MAP) 111/38 111/38 116/42 (66) Pulse Ox 99 O2 Delivery Nasal Cannula Nasal Cannula O2 Flow Rate 3.0 2.0 03/23/19 03/23/19 03/23/19 03/23/19 03:00 07:00 08:30 08:35 Temp 97.8 97.7 97.8 97.7 Pulse 70 74 74 Resp 18 22 B/P (MAP) 104/53 (70) 139/65 (89) 139/65 Pulse Ox 100 99 99 O2 Delivery Nasal Cannula Nasal Cannula Nasal Cannula O2 Flow Rate 2.0 2.0 2.0 03/23/19 03/23/19 03/23/19 09:36 11:00 11:43 Temp 97.9 97.9 Pulse 69 Resp 18 B/P (MAP) 150/73 (98) Pulse Ox 99 96 99 O2 Delivery Nasal Cannula Nasal Cannula Nasal Cannula O2 Flow Rate 2.0 2.0 2.0 Intake and Output 03/22/19 03/22/19 03/23/19 14:59 22:59 06:59 Intake Total 240 ml 480 ml 340 ml Balance 240 ml 480 ml 340 ml PATRICIA SILVEIRA MD March 23, 2019 14:19
--- NOTE | 2019-03-23 14:45 | PDOC ---
Provider Note Provider Note Discharge summary dictated.#[id number]. CARMITA WALL MD March 23, 2019 14:45
[2019-03-23 15:00] VITALS: BP 141/70
[2019-03-23 19:25] VITALS: BP 121/48
--- NOTE | 2019-03-23 20:10 | DS ---
DATE OF DISCHARGE: REASON FOR ADMISSION TO THE HOSPITAL: 1. Severe headache. 2. Tremors in the right hand and right leg. CONSULTATIONS: 1. Dr. Nichole. 2. Dr. Jenkins. 3. Dr. Sandoval. 4. Dr. Parker 5. General Surgery. PROCEDURES DONE: 1. CT head. 2. MRI of the brain. 3. MRA. 4. Echocardiogram. 5. Hemodialysis. 6.Temporal artery biopsy HOSPITAL COURSE: The patient is a 68-year-old female who has history of diabetes, hypertension and renal failure, on hemodialysis. She has a history of previous stroke. She also has history of seizures. She is on Keppra for that. She was noticed to have tremors in the right upper extremity, shakiness, confusion, was brought to the hospital. She missed her dialysis today. She goes to dialysis Wednesday, Wednesday and Wednesday. The patient was admitted to the hospital, had a CT head negative, was dialyzed. 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 She was having lot of headache and Neurology consulted Surgery to have a temporal lobe biopsy. Otherwise, the patient was doing relatively well and she was discharged after the biopsy is done. FINAL DIAGNOSES:Headaches, temporal artery biopsy planned. 1. Right hand and lower extremity tremors. 2. History of previous infarct with left hemiparesis. 3. History of seizures, on Keppra. 4. End-stage renal disease, on hemodialysis. 5. Hypertension. 6. Hyperlipidemia. 7. Diabetes. 8. Morbid obesity. 9. The patient had some supraventricular tachycardia, probably related to sleep apnea, seen by Pulmonology and Cardiology. She is scheduled outpatient Holter and possible sleep study. CARMITA WALL MD DR: EDEI/ayan JOB#: [id number] / [id number] HARLEEN
[2019-03-23] MEDS: CEPHALEXIN 250 MG CAPSULE. PO SCH (20:33)
[2019-03-23] MEDS: SIMVASTATIN 40 MG TABLET. PO SCH (20:34)
[2019-03-23] MEDS: GABAPENTIN 300 MG CAPSULE. PO SCH (20:34)
[2019-03-23] MEDS: METOPROLOL SUCC 24HR ER 25 MG TAB.ER.24H. PO SCH (20:34)
[2019-03-23 23:24] VITALS: BP 121/55
[2019-03-24] VITALS (14 sets, daily range): BP systolic 106–151; BP diastolic 45–84
[2019-03-24] MEDS ORDERED: HYDROmorphone 2 MG/ML VIAL IV PRN (07:00)
[2019-03-24] MEDS ORDERED: LIDOCAINE 1% PF 2 ML VIAL. ID PRN (07:00)
[2019-03-24] MEDS ORDERED: MORPHINE SULFATE 2 MG/ML VIAL. IV PRN (07:00)
[2019-03-24] MEDS ORDERED: fentaNYL PF VIAL 100 MCG/2 ML VIAL IV PRN (07:00)
[2019-03-24] MEDS ORDERED: IV RINGERS,LACTATED 1000ML 1,000 ML IV SCH (07:00)
[2019-03-24] MEDS: METOCLOPRAMIDE 5 MG TABLET. PO SCH ×4 (07:30→20:29)
[2019-03-24] MEDS: ALBUTEROL SULFATE 2.5 MG/3 ML NEBU. NEB SCH ×4 (07:32→20:14)
[2019-03-24] MEDS ORDERED: IV NORMAL SALINE 1000ML BAG 1,000 ML IV PRN ×2 (07:40)
[2019-03-24] MEDS ORDERED: DIALYSIS PATIENT. MC PRN (07:45)
[2019-03-24] MEDS ORDERED: diphenhydrAMINE 50 MG/ML VIAL IV PRN ×2 (07:45)
[2019-03-24] MEDS: CALCIUM ACETATE 667 MG CAPSULE PO SCH ×3 (08:00→16:21)
[2019-03-24] MEDS: INSULIN LISPRO 300 UNITS/3 ML INSULN.PEN. SQ SCH ×3 (08:00→16:12)
[2019-03-24] MEDS: cloNIDine HCL 0.1 MG TABLET PO SCH ×3 (08:50→20:27)
[2019-03-24] MEDS: LACTOBACILLUS RHAMNOSUS GG 1 CAPSULE. PO SCH ×2 (08:50→20:27)
[2019-03-24] MEDS: SENNOSIDES 8.6 MG TABLET PO SCH ×2 (08:51→20:27)
[2019-03-24] MEDS: CLOPIDOGREL BISULFATE 75 MG TABLET PO SCH (08:51)
[2019-03-24] MEDS: CYCLOBENZAPRINE 10 MG TABLET. PO SCH ×2 (08:52→20:28)
[2019-03-24] MEDS: levETIRAcetam 500 MG TABLET PO SCH ×2 (08:52→20:27)
--- NOTE | 2019-03-24 09:16 | PDOC ---
PROGRESS NOTES Assessment Problems Medical Problems: (1) ESRD (end stage renal disease) Status: Acute (2) Tremulousness Status: Acute (3) UTI (urinary tract infection) Status: Acute Metabolic encephalopathy, renal failure Headaches, better, still 03/31, elevated ESR, now with right temporal artery tenderness. Myoclonus, resolved, negative EEG 03/21, which does show evidence of encephalopathy, though Prior right middle cerebral artery stroke. History of epilepsy, EEG 03/21 negative for epileptic activity Episode of PSVT and apnea 03/21 night, cardiology following Plan Right temporal artery biopsy. Start after biopsy in this case (I realize that guidelines support starting steroids right away, but in this case I want to wait.) She may need to stay over the weekend to monitor her sugars with the steroids Continue levetiracetam Migraine cocktail, ketorolac, diphenhydramine, prochlorperazine, has not used (IV out) Hold on lumbar puncture. Subjective still has headache Objective Vital Signs Date Time Temp Pulse Resp B/P (MAP) Pulse Ox O2 Delivery O2 Flow Rate FiO2 03/24/19 07:00 97.8 66 18 118/53 (74) 98 Nasal Cannula 1.0 97.8 Intake and Output 03/24/19 07:00 Intake Total 590 ml Output Total 0 ml Balance 590 ml Intake Oral 590 ml Output Urine Total 0 ml # Voids 1 PHYSICAL EXAM Somnulant, alerts easily, oriented to time, place and person. PERRL. EOMI. CN: Spastic dysarthria, left central facial weakness Muscle tone: increased on left. Muscle strength: 2/5 on left DTR: 2+ Plantar reflex: flexor Gait: not examined in bed. Sensory exam: no abnormal findings. No cerebellar signs elicited. Does have some right temporal artery tenderness Review of Relevant I have reviewed the following items gabbi (where applicable) has been applied. Labs Laboratory Tests Test 03/22/19 12:25 03/22/19 13:30 03/22/19 17:15 03/22/19 21:12 Glucose (Fingerstick) 102 mg/dL (70-99) 120 mg/dL (70-99) 145 mg/dL (70-99) White Blood Count 3.5 x10^3/uL (4.0-11.0) Red Blood Count 3.41 x10^6/uL (3.50-5.40) Hemoglobin 10.5 g/dL (12.0-15.5) Hematocrit 33.6 % (36.0-47.0) Mean Corpuscular Volume 98 fL (79-100) Mean Corpuscular Hemoglobin 31 pg (25-35) Mean Corpuscular Hemoglobin Concent 31 g/dL (31-37) Red Cell Distribution Width 14.2 % (11.5-14.5) Platelet Count 122 x10^3/uL (140-400) Neutrophils (%) (Auto) 48 % (31-73) Lymphocytes (%) (Auto) 34 % (24-48) Monocytes (%) (Auto) 14 % (0-9) Eosinophils (%) (Auto) 3 % (0-3) Basophils (%) (Auto) 1 % (0-3) Neutrophils # (Auto) 1.7 x10^3uL (1.8-7.7) Lymphocytes # (Auto) 1.2 x10^3/uL (1.0-4.8) Monocytes # (Auto) 0.5 x10^3/uL (0.0-1.1) Eosinophils # (Auto) 0.1 x10^3/uL (0.0-0.7) Basophils # (Auto) 0.0 x10^3/uL (0.0-0.2) Sodium Level 136 mmol/L (136-145) Potassium Level 4.1 mmol/L (3.5-5.1) Chloride Level 99 mmol/L (98-107) Carbon Dioxide Level 32 mmol/L (21-32) Anion Gap 5 (6-14) Blood Urea Nitrogen 20 mg/dL (7-20) Creatinine 4.1 mg/dL (0.6-1.0) Estimated GFR (Cockcroft-Gault) 13.1 Glucose Level 129 mg/dL (70-99) Calcium Level 9.1 mg/dL (8.5-10.1) Thyroid Stimulating Hormone (TSH) 2.964 uIU/mL (0.358-3.74) Test 03/23/19 08:34 03/23/19 11:07 03/23/19 16:55 03/23/19 19:53 Glucose (Fingerstick) 151 mg/dL (70-99) 150 mg/dL (70-99) 126 mg/dL (70-99) 161 mg/dL (70-99) Test 03/24/19 07:29 Glucose (Fingerstick) 128 mg/dL (70-99) Laboratory Tests Test 03/23/19 11:07 03/23/19 16:55 03/23/19 19:53 03/24/19 07:29 Glucose (Fingerstick) 150 mg/dL (70-99) 126 mg/dL (70-99) 161 mg/dL (70-99) 128 mg/dL (70-99) Medications Current Medications Hydralazine HCl (Apresoline Inj) 20 mg 1X ONCE IVP Last administered on 03/20/19at 07:54; Start 03/20/19 at 07:30; Stop 03/20/19 at 07:31; Status DC Lorazepam (Ativan) 0.5 mg 1X ONCE IV Last administered on 03/20/19at 07:59; Start 03/20/19 at 08:00; Stop 03/20/19 at 08:01; Status DC Ondansetron HCl (Zofran) 4 mg PRN Q8HRS PRN IV NAUSEA/VOMITING; Start 03/20/19 at 08:15; Stop 03/21/19 at 08:14; Status DC Insulin Human Lispro (HumaLOG) 0-5 UNITS TIDWMEALS SQ Last administered on 03/21/19at 17:00; Start 03/20/19 at 12:00 Dextrose (Dextrose 50%-Water Syringe) 12.5 gm PRN Q15MIN PRN IV SEE COMMENTS; Start 03/20/19 at 08:15 Ceftriaxone Sodium (Rocephin) 1 gm Q24H IVP Last administered on 03/21/19at 13:53; Start 03/20/19 at 11:00; Stop 03/21/19 at 14:00; Status DC Allopurinol (Zyloprim) 100 mg DAILY PO Last administered on 03/23/19at 08:37; Start 03/20/19 at 11:00 Alprazolam (Xanax) 0.25 mg PRN BID PRN PO ANXIETY / AGITATION Last administered on 03/21/19at 20:49; Start 03/20/19 at 10:15 Cinacalcet (Sensipar) 30 mg DAILY PO Last administered on 03/23/19 08:38; Start 03/20/19 at 11:00 Citalopram Hydrobromide (CeleXA) 10 mg DAILY PO Last administered on 03/23/19 08:36; Start 03/20/19 at 11:00 Clonidine HCl (Catapres) 0.1 mg TID PO Last administered on 03/23/19 20:35; Start 03/20/19 at 14:00 Clopidogrel Bisulfate (Plavix) 75 mg DAILY PO Last administered on 03/23/19 08:28; Start 03/20/19 at 11:00 Cyclobenzaprine HCl (Flexeril) 10 mg BID PO Last administered on 03/23/19 20:33; Start 03/20/19 at 11:00 Gabapentin (Neurontin) 300 mg HS PO Last administered on 03/23/19 20:34; Start 03/20/19 at 21:00 Acetaminophen/ Hydrocodone Bitart (Lortab 5/325) 1 tab PRN Q6HRS PRN PO MODERATE PAIN Last administered on 03/23/19 16:02; Start 03/20/19 at 10:15 Levetiracetam (Keppra) 500 mg BID PO ; Start 03/20/19 at 11:00; Stop 03/20/19 at 11:00; Status DC Metoclopramide HCl (Reglan) 2.5 mg QIDACHS PO Last administered on 03/23/19 20:34; Start 03/20/19 at 11:30 Non-Formulary Medication (Levalbuterol Tartrate (Xopenex Hfa)) 2 puff QID IH ; Start 03/20/19 at 13:00; Status UNV Non-Formulary Medication (Naloxegol Oxalate (Movantik)) 25 mg DAILY PO ; Start 03/21/19 at 09:00; Stop 03/22/19 at 08:35; Status DC Sennosides (Senna) 8.6 mg BID PO Last administered on 03/23/19 20:34; Start 03/20/19 at 10:30 Simvastatin (Zocor) 40 mg QHS PO Last administered on 03/23/19 20:34; Start 03/20/19 at 21:00 Vitamin B Complex/ Vitamin C (Makayla-Britton) 1 tab DAILY PO Last administered on 03/23/19at 08:33; Start 03/20/19 at 11:00 Calcium Acetate (Phoslo) 2,001 mg TIDWMEALS PO Last administered on 03/23/19at 17:27; Start 03/20/19 at 12:00 Levetiracetam (Keppra) 1,000 mg BID PO Last administered on 03/23/19at 20:34; Start 03/20/19 at 11:00 Albuterol Sulfate (Ventolin Neb Soln) 2.5 mg RTQID NEB Last administered on 03/24/19at 07:32; Start 03/20/19 at 12:00 Sodium Chloride 1,000 ml @ 1,000 mls/hr Q1H PRN IV hypotension; Start 03/20/19 at 13:30; Stop 03/20/19 at 19:29; Status DC Sodium Chloride 1,000 ml @ 400 mls/hr Q2H30M PRN IV PATENCY; Start 03/20/19 at 13:30; Stop 03/21/19 at 01:29; Status DC Info (PHARMACY MONITORING -- do not chart) 1 each PRN DAILY PRN MC SEE COMMENTS; Start 03/20/19 at 14:15; Status UNV Info (PHARMACY MONITORING -- do not chart) 1 each PRN DAILY PRN MC SEE COMMENTS; Start 03/20/19 at 14:15; Status Cancel Ketorolac Tromethamine (Toradol 15mg Vial) 15 mg PRN Q6HRS PRN IV PAIN; Start 03/21/19 at 09:00; Stop 03/26/19 at 08:59 Diphenhydramine HCl (Benadryl) 25 mg PRN Q6HRS PRN IVP ITCHING; Start 03/21/19 at 09:00 Prochlorperazine Edisylate (Compazine) 10 mg PRN Q6HRS PRN IV NAUSEA/VOMITING; Start 03/21/19 at 09:00 Cephalexin HCl (Keflex) 500 mg BID PO ; Start 03/21/19 at 21:00; Stop 03/21/19 at 21:00; Status DC Lactobacillus Rhamnosus (Culturelle) 1 cap BID PO Last administered on 03/23/19at 20:34; Start 03/21/19 at 21:00 Cephalexin HCl (Keflex) 500 mg QHS PO Last administered on 03/23/19at 20:33; Start 03/21/19 at 21:00 Sodium Chloride 1,000 ml @ 1,000 mls/hr Q1H PRN IV hypotension; Start 03/22/19 at 08:24; Stop 03/22/19 at 14:23; Status DC Diphenhydramine HCl (Benadryl) 25 mg 1X PRN PRN IV ITCHING; Start 03/22/19 at 08:30; Stop 03/23/19 at 08:29; Status DC Diphenhydramine HCl (Benadryl) 25 mg 1X PRN PRN IV ITCHING; Start 03/22/19 at 08:30; Stop 03/23/19 at 08:29; Status DC Sodium Chloride 1,000 ml @ 400 mls/hr Q2H30M PRN IV PATENCY; Start 03/22/19 at 08:24; Stop 03/22/19 at 20:23; Status DC Info (PHARMACY MONITORING -- do not chart) 1 each PRN DAILY PRN MC SEE COMM ENTS; Start 03/22/19 at 08:30; Status UNV Info (PHARMACY MONITORING -- do not chart) 1 each PRN DAILY PRN MC SEE COMMENTS; Start 03/22/19 at 08:30 Metoprolol Succinate (Toprol Xl) 25 mg QHS PO Last administered on 03/23/19at 20:34; Start 03/22/19 at 21:00 Fentanyl Citrate (Fentanyl 2ml Vial) 25 mcg PRN Q5MIN PRN IV MILD PAIN; Start 03/24/19 at 07:00; Stop 03/25/19 at 06:59 Fentanyl Citrate (Fentanyl 2ml Vial) 50 mcg PRN Q5MIN PRN IV MODERATE TO SEVERE PAIN; Start 03/24/19 at 07:00; Stop 03/25/19 at 06:59 Morphine Sulfate (Morphine Sulfate) 1 mg PRN Q10MIN PRN IV SEVERE PAIN; Start 03/24/19 at 07:00; Stop 03/25/19 at 06:59 Ringer's Solution 1,000 ml @ 30 mls/hr Q24H IV ; Start 03/24/19 at 07:00; Stop 03/24/19 at 18:59 Lidocaine HCl (Xylocaine-Mpf 1% 2ml Vial) 2 ml PRN 1X PRN ID PRIOR TO IV START; Start 03/24/19 at 07:00; Stop 03/25/19 at 06:59 Hydromorphone HCl (Dilaudid) 0.5 mg PRN Q10MIN PRN IV SEV PAIN, Second choice; Start 03/24/19 at 07:00; Stop 03/25/19 at 06:59 Sodium Chloride 1,000 ml @ 1,000 mls/hr Q1H PRN IV hypotension; Start 03/24/19 at 07:40; Stop 03/24/19 at 13:39 Diphenhydramine HCl (Benadryl) 25 mg 1X PRN PRN IV ITCHING; Start 03/24/19 at 07:45; Stop 03/25/19 at 07:44 Diphenhydramine HCl (Benadryl) 25 mg 1X PRN PRN IV ITCHING; Start 03/24/19 at 07:45; Stop 03/25/19 at 07:44 Sodium Chloride 1,000 ml @ 400 mls/hr Q2H30M PRN IV PATENCY; Start 03/24/19 at 07:40; Stop 03/24/19 at 19:39 Info (PHARMACY MONITORING -- do not chart) 1 each PRN DAILY PRN MC SEE COMMENTS; Start 03/24/19 at 07:45 Active Scripts Active Keflex (Cephalexin) 500 Mg Capsule 1 Cap PO BID Metoprolol Succinate ( Xl ) (Metoprolol Succinate) 25 Mg Tab.er.24h 25 Mg PO QHS 30 Days Reported [phoslo] 2,001 Mg PO TID Movantik (Naloxegol Oxalate) 25 Mg Tablet 25 Mg PO DAILY Xopenex Hfa (Levalbuterol Tartrate) 15 Gm Hfa.aer.ad 2 Puff IH QID Keppra (Levetiracetam) 500 Mg Tablet 1 Tab PO BID Vol-Care Rx Tablet (Vit B Cmplx 3/Fa/Vit C/Biotin) 1 Each Tablet 1 Each PO DAILY Clopidogrel (Clopidogrel Bisulfate) 75 Mg Tablet 1 Tab PO DAILY Alprazolam 0.25 Mg Tablet 1 Tab PO PRN BID PRN Celexa (Citalopram Hydrobromide) 10 Mg Tablet 1 Tab PO DAILY Allopurinol 100 Mg Tablet 1 Tab PO DAILY Sensipar (Cinacalcet Hcl) 30 Mg Tablet 1 Tab PO DAILY Simvastatin 40 Mg Tablet 1 Tab PO QHS Gabapentin (Gabapentin) 300 Mg Capsule 1 Cap PO HS Senna (Sennosides) 8.6 Mg Capsule 8.6 Mg PO BID Cyclobenzaprine Hcl 10 Mg Tablet 1 Tab PO BID Reglan (Metoclopramide Hcl) 10 Mg Tablet 5 Mg PO QIDACHS Clonidine Hcl 0.1 Mg Tablet 1 Tab PO TID Hydrocodone-Apap 5-325 (Hydrocodone Bit/Acetaminophen) 1 Each Tablet 1 Tab PO PRN Q6HRS PRN Vitals/I & O Vital Sign - Last 24 Hours 03/23/19 03/23/19 03/23/19 03/23/19 11:00 11:43 14:00 15:00 Temp 97.9 98.0 97.9 98.0 Pulse 69 69 63 Resp 18 18 B/P (MAP) 150/73 (98) 150/73 141/70 (93) Pulse Ox 96 99 96 O2 Delivery Nasal Cannula Nasal Cannula Nasal Cannula O2 Flow Rate 2.0 2.0 2.0 03/23/19 03/23/19 03/23/19 03/23/19 15:38 16:02 17:10 19:25 Temp 97.3 97.3 Pulse 75 Resp 16 B/P (MAP) 121/48 (72) Pulse Ox 96 96 96 96 O2 Delivery Room Air Nasal Cannula Nasal Cannula Nasal Cannula O2 Flow Rate 2.0 2.0 1.0 03/23/19 03/23/19 03/23/19 03/23/19 20:00 20:34 20:35 23:24 Temp 98.0 98.0 Pulse 75 75 73 Resp 16 B/P (MAP) 121/48 121/48 121/55 (77) Pulse Ox 97 O2 Delivery Nasal Cannula Nasal Cannula O2 Flow Rate 1.0 1.0 03/24/19 03/24/19 03:36 07:00 Temp 97.7 97.8 97.7 97.8 Pulse 61 66 Resp 18 18 B/P (MAP) 121/58 (79) 118/53 (74) Pulse Ox 100 98 O2 Delivery Nasal Cannula Nasal Cannula O2 Flow Rate 1.0 1.0 Intake and Output 03/23/19 03/23/19 03/24/19 15:00 23:00 07:00 Intake Total 440 ml 150 ml 0 ml Output Total 0 ml 0 ml Balance 440 ml 150 ml 0 ml PATRICIA SILVEIRA MD March 24, 2019 09:16
[2019-03-24 09:24] LABS: HEMATOCRIT 30.2 % (36.0-47.0); HEMOGLOBIN 9.5 g/dL (12.0-15.5); RED BLOOD COUNT 3.07 x10^6/uL (3.50-5.40); RED CELL DISTRIBUTION WIDTH 14.1 % (11.5-14.5); WHITE BLOOD COUNT 3.4 x10^3/uL (4.0-11.0)
[2019-03-24 09:40] LABS: CALCIUM 8.8 mg/dL (8.5-10.1); CREATININE 6.1 mg/dL (0.6-1.0); GFR 8.3; POTASSIUM 4.8 mmol/L (3.5-5.1)
--- NOTE | 2019-03-24 09:53 | PDOC ---
PROGRESS NOTES Subjective Subjective seen in dialysis, going for temp artery biopsy Objective Objective Vital Signs Date Time Temp Pulse Resp B/P (MAP) Pulse Ox O2 Delivery O2 Flow Rate FiO2 03/24/19 09:19 99 Room Air 03/24/19 07:00 97.8 66 18 118/53 (74) 1.0 97.8 Intake and Output 03/24/19 07:00 Intake Total 590 ml Output Total 0 ml Balance 590 ml Intake Oral 590 ml Output Urine Total 0 ml # Voids 1 Physical Exam Abdomen: Soft, Other (epigastric TTP) Heart: Regular rate, Normal S1, Normal S2 Extremities: No clubbing, No cyanosis General: Alert, Cooperative, No acute distress HEENT: Atraumatic, Other (tenderness to R TA area) Lungs: Clear to auscultation, Normal air movement MUSCULOSKELETAL: No deformity, No swelling Neuro: Normal gait, Normal speech Psych/Mental Status: Mental status NL, Mood NL Skin: No rashes, No breakdown Diagnosis Problem List Problems Medical Problems: (1) ESRD (end stage renal disease) Status: Acute (2) Tremulousness Status: Acute (3) UTI (urinary tract infection) Status: Acute Assessment Assessment Problems Medical Problems: (1) ESRD (end stage renal disease) Status: Acute (2) Tremulousness Status: Acute (3) UTI (urinary tract infection) Status: Acute FINAL IMPRESSION: headaches PSVT Sleep apnea 1. Severe headache. 2. Tremor-like activity, right upper and lower extremity. 3. History of previous stroke with left hemiparesis. 4. On Keppra for seizures. 5. End-stage renal disease, on dialysis. 6. Urinary tract infection. 7. Morbidly obese. PLAN: home tomorrow? temp artery biopsy today. ECHO good lvf , cardiology consult done.needs out pt holter Needs CPAP for home ,insurance donot pay for CPAP machine , pul consult appreciated EEG neg for seizure activity Dialysis today po keflex for uti. labs ok. keppra for seizures MRI and MRA showed old cva ,no new cva At this time admit to hospital. After urine culture, start on Rocephin. Get dialysis today; Wednesday, Wednesday, Wednesday as schedule. Neurology, see Dr. Nichole. Seizure precautions, Speech to see. Plan Plan of Care Problems Medical Problems: (1) ESRD (end stage renal disease) Status: Acute (2) Tremulousness Status: Acute (3) UTI (urinary tract infection) Status: Acute Comment Review of Relevant I have reviewed the following items gabbi (where applicable) has been applied. Labs Laboratory Tests Test 03/23/19 11:07 03/23/19 16:55 03/23/19 19:53 03/24/19 07:29 Glucose (Fingerstick) 150 mg/dL (70-99) 126 mg/dL (70-99) 161 mg/dL (70-99) 128 mg/dL (70-99) Test 03/24/19 08:55 White Blood Count 3.4 x10^3/uL (4.0-11.0) Red Blood Count 3.07 x10^6/uL (3.50-5.40) Hemoglobin 9.5 g/dL (12.0-15.5) Hematocrit 30.2 % (36.0-47.0) Mean Corpuscular Volume 98 fL (79-100) Mean Corpuscular Hemoglobin 31 pg (25-35) Mean Corpuscular Hemoglobin Concent 31 g/dL (31-37) Red Cell Distribution Width 14.1 % (11.5-14.5) Platelet Count 116 x10^3/uL (140-400) Sodium Level 135 mmol/L (136-145) Potassium Level 4.8 mmol/L (3.5-5.1) Chloride Level 97 mmol/L (98-107) Carbon Dioxide Level 30 mmol/L (21-32) Anion Gap 8 (6-14) Blood Urea Nitrogen 35 mg/dL (7-20) Creatinine 6.1 mg/dL (0.6-1.0) Estimated GFR (Cockcroft-Gault) 8.3 Glucose Level 146 mg/dL (70-99) Calcium Level 8.8 mg/dL (8.5-10.1) Medications Current Medications Diphenhydramine HCl (Benadryl) 25 mg 1X PRN PRN IV ITCHING; Start 03/24/19 at 07:45; Stop 03/25/19 at 07:44 Diphenhydramine HCl (Benadryl) 25 mg 1X PRN PRN IV ITCHING; Start 03/24/19 at 07:45; Stop 03/25/19 at 07:44 Fentanyl Citrate (Fentanyl 2ml Vial) 25 mcg PRN Q5MIN PRN IV MILD PAIN; Start 03/24/19 at 07:00; Stop 03/25/19 at 06:59 Fentanyl Citrate (Fentanyl 2ml Vial) 50 mcg PRN Q5MIN PRN IV MODERATE TO SEVERE PAIN; Start 03/24/19 at 07:00; Stop 03/25/19 at 06:59 Hydromorphone HCl (Dilaudid) 0.5 mg PRN Q10MIN PRN IV SEV PAIN, Second choice; Start 03/24/19 at 07:00; Stop 03/25/19 at 06:59 Info (PHARMACY MONITORING -- do not chart) 1 each PRN DAILY PRN MC SEE COMMENTS; Start 03/24/19 at 07:45 Lidocaine HCl (Xylocaine-Mpf 1% 2ml Vial) 2 ml PRN 1X PRN ID PRIOR TO IV START; Start 03/24/19 at 07:00; Stop 03/25/19 at 06:59 Methylprednisolone Sodium Succinate (SOLU-Medrol 125MG VIAL) 125 mg 1X ONCE IV ; Start 03/24/19 at 16:00; Stop 03/24/19 at 16:01 Morphine Sulfate (Morphine Sulfate) 1 mg PRN Q10MIN PRN IV SEVERE PAIN; Start 03/24/19 at 07:00; Stop 03/25/19 at 06:59 Prednisone (Prednisone) 50 mg DAILY PO ; Start 03/25/19 at 09:00 Ringer's Solution 1,000 ml @ 30 mls/hr Q24H IV ; Start 03/24/19 at 07:00; Stop 03/24/19 at 18:59 Sodium Chloride 1,000 ml @ 400 mls/hr Q2H30M PRN IV PATENCY; Start 03/24/19 at 07:40; Stop 03/24/19 at 19:39 Sodium Chloride 1,000 ml @ 1,000 mls/hr Q1H PRN IV hypotension; Start 03/24/19 at 07:40; Stop 03/24/19 at 13:39 Vitals/I & O Vital Sign - Last 24 Hours 03/23/19 03/23/19 03/23/19 03/23/19 11:00 11:43 14:00 15:00 Temp 97.9 98.0 97.9 98.0 Pulse 69 69 63 Resp 18 18 B/P (MAP) 150/73 (98) 150/73 141/70 (93) Pulse Ox 96 99 96 O2 Delivery Nasal Cannula Nasal Cannula Nasal Cannula O2 Flow Rate 2.0 2.0 2.0 03/23/19 03/23/19 03/23/19 03/23/19 15:38 16:02 17:10 19:25 Temp 97.3 97.3 Pulse 75 Resp 16 B/P (MAP) 121/48 (72) Pulse Ox 96 96 96 96 O2 Delivery Room Air Nasal Cannula Nasal Cannula Nasal Cannula O2 Flow Rate 2.0 2.0 1.0 03/23/19 03/23/19 03/23/19 03/23/19 20:00 20:34 20:35 23:24 Temp 98.0 98.0 Pulse 75 75 73 Resp 16 B/P (MAP) 121/48 121/48 121/55 (77) Pulse Ox 97 O2 Delivery Nasal Cannula Nasal Cannula O2 Flow Rate 1.0 1.0 03/24/19 03/24/19 03/24/19 03:36 07:00 09:19 Temp 97.7 97.8 97.7 97.8 Pulse 61 66 Resp 18 18 B/P (MAP) 121/58 (79) 118/53 (74) Pulse Ox 100 98 99 O2 Delivery Nasal Cannula Nasal Cannula Room Air O2 Flow Rate 1.0 1.0 Intake and Output 03/23/19 03/23/19 03/24/19 15:00 23:00 07:00 Intake Total 440 ml 150 ml 0 ml Output Total 0 ml 0 ml Balance 440 ml 150 ml 0 ml CARMITA WALL MD March 24, 2019 09:53
[2019-03-24] MEDS ORDERED: BUPIVAC MPF-EPI 0.5%-1:200000 30 ML VIAL. ONE (10:53)
--- NOTE | 2019-03-24 11:03 | PDOC ---
SUBJECTIVE ROS Seen on HD , tolerating well OBJECTIVE Vital Signs Vital Signs Date Time Temp Pulse Resp B/P (MAP) Pulse Ox O2 Delivery O2 Flow Rate FiO2 03/24/19 09:19 99 Room Air 03/24/19 07:00 97.8 66 18 118/53 (74) 1.0 97.8 I & 0 Intake and Output 03/24/19 07:00 Intake Total 590 ml Output Total 0 ml Balance 590 ml Intake Oral 590 ml Output Urine Total 0 ml # Voids 1 PHYSICAL EXAM Physical Exam GENERAL: morbidly obese. NAD HEENT: OM moist NECK: Supple. CARDIOVASCULAR: S1, S2. LUNGS: Clear to auscultation. Non labored ABDOMEN: Obese No Phillips. EXTREMITIES: healed scar in the gluteal, extremities. No edema. AV shunts in both upper extremities, right upper arm using for dialysis. 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 History of previous stroke with left hemiparesis. On Keppra for seizures. 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 COMMENT/RELEVANT DATA Meds Current Medications Medications (Trade) Dose Ordered Sig/Yumiko Start Time Stop Time Status Last Admin Dose Admin Acetaminophen/ Hydrocodone Bitart (Lortab 5/325) 1 tab PRN Q6HRS PRN 03/20/19 10:15 03/23/19 16:02 1 TAB Albuterol Sulfate (Ventolin Neb Soln) 2.5 mg RTQID 03/20/19 12:00 03/24/19 07:32 2.5 MG Allopurinol (Zyloprim) 100 mg DAILY 03/20/19 11:00 03/23/19 08:37 100 MG Alprazolam (Xanax) 0.25 mg PRN BID PRN 03/20/19 10:15 03/21/19 20:49 0.25 MG Calcium Acetate (Phoslo) 2,001 mg TIDWMEALS 03/20/19 12:00 03/23/19 17:27 2,001 MG Ceftriaxone Sodium (Rocephin) 1 gm Q24H 03/20/19 11:00 03/21/19 14:00 DC 03/21/19 13:53 1 GM Cephalexin HCl (Keflex) 500 mg QHS 03/21/19 21:00 03/23/19 20:33 500 MG Cinacalcet (Sensipar) 30 mg DAILY 03/20/19 11:00 03/23/19 08:38 30 MG Citalopram Hydrobromide (CeleXA) 10 mg DAILY 03/20/19 11:00 03/23/19 08:36 10 MG Clonidine HCl (Catapres) 0.1 mg TID 03/20/19 14:00 03/23/19 20:35 0.1 MG Clopidogrel Bisulfate (Plavix) 75 mg DAILY 03/20/19 11:00 03/23/19 08:28 75 MG Cyclobenzaprine HCl (Flexeril) 10 mg BID 03/20/19 11:00 03/23/19 20:33 10 MG Dextrose (Dextrose 50%-Water Syringe) 12.5 gm PRN Q15MIN PRN 03/20/19 08:15 Diphenhydramine HCl (Benadryl) 25 mg 1X PRN PRN 03/24/19 07:45 03/25/19 07:44 Fentanyl Citrate (Fentanyl 2ml Vial) 50 mcg PRN Q5MIN PRN 03/24/19 07:00 03/25/19 06:59 Gabapentin (Neurontin) 300 mg HS 03/20/19 21:00 03/23/19 20:34 300 MG Hydralazine HCl (Apresoline Inj) 20 mg 1X ONCE 03/20/19 07:30 03/20/19 07:31 DC 03/20/19 07:54 20 MG Hydromorphone HCl (Dilaudid) 0.5 mg PRN Q10MIN PRN 03/24/19 07:00 03/25/19 06:59 Info (PHARMACY MONITORING -- do not chart) 1 each PRN DAILY PRN 03/24/19 07:45 Insulin Human Lispro (HumaLOG) 0-5 UNITS TIDWMEALS 03/20/19 12:00 03/21/19 17:00 3 UNITS Ketorolac Tromethamine (Toradol 15mg Vial) 15 mg PRN Q6HRS PRN 03/21/19 09:00 03/26/19 08:59 Lactobacillus Rhamnosus (Culturelle) 1 cap BID 03/21/19 21:00 03/23/19 20:34 1 CAP Levetiracetam (Keppra) 1,000 mg BID 03/20/19 11:00 03/23/19 20:34 1,000 MG Lidocaine HCl (Xylocaine-Mpf 1% 2ml Vial) 2 ml PRN 1X PRN 03/24/19 07:00 03/25/19 06:59 Lorazepam (Ativan) 0.5 mg 1X ONCE 03/20/19 08:00 03/20/19 08:01 DC 03/20/19 07:59 0.5 MG Methylprednisolone Sodium Succinate (SOLU-Medrol 125MG VIAL) 125 mg 1X ONCE 03/24/19 16:00 03/24/19 16:01 Metoclopramide HCl (Reglan) 2.5 mg QIDACHS 03/20/19 11:30 03/23/19 20:34 2.5 MG Metoprolol Succinate (Toprol Xl) 25 mg QHS 03/22/19 21:00 03/23/19 20:34 25 MG Morphine Sulfate (Morphine Sulfate) 1 mg PRN Q10MIN PRN 03/24/19 07:00 03/25/19 06:59 Non-Formulary Medication (Levalbuterol Tartrate (Xopenex Hfa)) 2 puff QID 03/20/19 13:00 UNV Non-Formulary Medication (Naloxegol Oxalate (Movantik)) 25 mg DAILY 03/21/19 09:00 03/22/19 08:35 DC Ondansetron HCl (Zofran) 4 mg PRN Q8HRS PRN 03/20/19 08:15 03/21/19 08:14 DC Prednisone (Prednisone) 50 mg DAILY 03/25/19 09:00 Prochlorperazine Edisylate (Compazine) 10 mg PRN Q6HRS PRN 03/21/19 09:00 Ringer's Solution 1,000 ml @ 30 mls/hr Q24H 03/24/19 07:00 03/24/19 18:59 Sennosides (Senna) 8.6 mg BID 03/20/19 10:30 03/23/19 20:34 8.6 MG Simvastatin (Zocor) 40 mg QHS 03/20/19 21:00 03/23/19 20:34 40 MG Sodium Chloride 1,000 ml @ 400 mls/hr Q2H30M PRN 03/24/19 07:40 03/24/19 19:39 Vitamin B Complex/ Vitamin C (Makayla-Britton) 1 tab DAILY 03/20/19 11:00 03/23/19 08:33 1 TAB Lab Laboratory Tests Test 03/23/19 11:07 03/23/19 16:55 03/23/19 19:53 03/24/19 07:29 Glucose (Fingerstick) 150 mg/dL (70-99) 126 mg/dL (70-99) 161 mg/dL (70-99) 128 mg/dL (70-99) Test 03/24/19 08:55 White Blood Count 3.4 x10^3/uL (4.0-11.0) Red Blood Count 3.07 x10^6/uL (3.50-5.40) Hemoglobin 9.5 g/dL (12.0-15.5) Hematocrit 30.2 % (36.0-47.0) Mean Corpuscular Volume 98 fL (79-100) Mean Corpuscular Hemoglobin 31 pg (25-35) Mean Corpuscular Hemoglobin Concent 31 g/dL (31-37) Red Cell Distribution Width 14.1 % (11.5-14.5) Platelet Count 116 x10^3/uL (140-400) Sodium Level 135 mmol/L (136-145) Potassium Level 4.8 mmol/L (3.5-5.1) Chloride Level 97 mmol/L (98-107) Carbon Dioxide Level 30 mmol/L (21-32) Anion Gap 8 (6-14) Blood Urea Nitrogen 35 mg/dL (7-20) Creatinine 6.1 mg/dL (0.6-1.0) Estimated GFR (Cockcroft-Gault) 8.3 Glucose Level 146 mg/dL (70-99) Calcium Level 8.8 mg/dL (8.5-10.1) Results All relevant outside records, renal labs, imaging studies, telemetry/EKG's were reviewed. LILI OCASIO MD March 24, 2019 11:03
[2019-03-24] MEDS ORDERED: ONDANSETRON PF 4 MG/2 ML VIAL. ONE (11:36)
[2019-03-24] MEDS ORDERED: MIDAZOLAM HCL/PF 2 MG/2 ML VIAL. ONE (11:36)
[2019-03-24] MEDS ORDERED: SEVOFLURANE 31 TO 60 MINUTES. IH ONE (11:36)
[2019-03-24] MEDS ORDERED: DEXAMETHASONE SOD PHOS 4 MG/ML VIAL ONE (11:36)
[2019-03-24] MEDS ORDERED: LIDOCAINE 2% PF 5 ML VIAL. ONE (11:36)
[2019-03-24] MEDS ORDERED: PROPOFOL 20 ML IV ONE (11:36)
[2019-03-24] MEDS ORDERED: fentaNYL PF VIAL 100 MCG/2 ML VIAL ONE (11:36)
--- NOTE | 2019-03-24 12:18 | PDOC ---
SURGICAL PROGRESS NOTE Subjective Pre-Op Note 68 yo F with right sided VERA TO OR for right temporal artery biopsy R/R/B/A d/w pt. Risks, including, but not limited to: bleeding, infection, damage to surrounding structures, risk of anesthesia. Pt is at increased risk of bleeding, secondary to plavix, but given risk of stroke, will not hold curren tly. She appears to understand, her questions are answered and she agrees to proceed. Vital Signs Vital Signs Date Time Temp Pulse Resp B/P (MAP) Pulse Ox O2 Delivery O2 Flow Rate FiO2 03/24/19 09:19 99 Room Air 03/24/19 07:00 97.8 66 18 118/53 (74) 1.0 97.8 I&O Intake and Output 03/24/19 07:00 Intake Total 590 ml Output Total 0 ml Balance 590 ml Intake Oral 590 ml Output Urine Total 0 ml # Voids 1 Labs Laboratory Tests Test 03/22/19 12:25 03/22/19 13:30 03/22/19 17:15 03/22/19 21:12 Glucose (Fingerstick) 102 mg/dL (70-99) 120 mg/dL (70-99) 145 mg/dL (70-99) White Blood Count 3.5 x10^3/uL (4.0-11.0) Red Blood Count 3.41 x10^6/uL (3.50-5.40) Hemoglobin 10.5 g/dL (12.0-15.5) Hematocrit 33.6 % (36.0-47.0) Mean Corpuscular Volume 98 fL (79-100) Mean Corpuscular Hemoglobin 31 pg (25-35) Mean Corpuscular Hemoglobin Concent 31 g/dL (31-37) Red Cell Distribution Width 14.2 % (11.5-14.5) Platelet Count 122 x10^3/uL (140-400) Neutrophils (%) (Auto) 48 % (31-73) Lymphocytes (%) (Auto) 34 % (24-48) Monocytes (%) (Auto) 14 % (0-9) Eosinophils (%) (Auto) 3 % (0-3) Basophils (%) (Auto) 1 % (0-3) Neutrophils # (Auto) 1.7 x10^3uL (1.8-7.7) Lymphocytes # (Auto) 1.2 x10^3/uL (1.0-4.8) Monocytes # (Auto) 0.5 x10^3/uL (0.0-1.1) Eosinophils # (Auto) 0.1 x10^3/uL (0.0-0.7) Basophils # (Auto) 0.0 x10^3/uL (0.0-0.2) Sodium Level 136 mmol/L (136-145) Potassium Level 4.1 mmol/L (3.5-5.1) Chloride Level 99 mmol/L (98-107) Carbon Dioxide Level 32 mmol/L (21-32) Anion Gap 5 (6-14) Blood Urea Nitrogen 20 mg/dL (7-20) Creatinine 4.1 mg/dL (0.6-1.0) Estimated GFR (Cockcroft-Gault) 13.1 Glucose Level 129 mg/dL (70-99) Calcium Level 9.1 mg/dL (8.5-10.1) Thyroid Stimulating Hormone (TSH) 2.964 uIU/mL (0.358-3.74) Test 03/23/19 08:34 03/23/19 11:07 03/23/19 16:55 03/23/19 19:53 Glucose (Fingerstick) 151 mg/dL (70-99) 150 mg/dL (70-99) 126 mg/dL (70-99) 161 mg/dL (70-99) Test 03/24/19 07:29 03/24/19 08:55 Glucose (Fingerstick) 128 mg/dL (70-99) White Blood Count 3.4 x10^3/uL (4.0-11.0) Red Blood Count 3.07 x10^6/uL (3.50-5.40) Hemoglobin 9.5 g/dL (12.0-15.5) Hematocrit 30.2 % (36.0-47.0) Mean Corpuscular Volume 98 fL (79-100) Mean Corpuscular Hemoglobin 31 pg (25-35) Mean Corpuscular Hemoglobin Concent 31 g/dL (31-37) Red Cell Distribution Width 14.1 % (11.5-14.5) Platelet Count 116 x10^3/uL (140-400) Sodium Level 135 mmol/L (136-145) Potassium Level 4.8 mmol/L (3.5-5.1) Chloride Level 97 mmol/L (98-107) Carbon Dioxide Level 30 mmol/L (21-32) Anion Gap 8 (6-14) Blood Urea Nitrogen 35 mg/dL (7-20) Creatinine 6.1 mg/dL (0.6-1.0) Estimated GFR (Cockcroft-Gault) 8.3 Glucose Level 146 mg/dL (70-99) Calcium Level 8.8 mg/dL (8.5-10.1) Hepatitis B Surface Antigen Nonreactive (Nonreactive) Laboratory Tests Test 03/23/19 16:55 03/23/19 19:53 03/24/19 07:29 03/24/19 08:55 Glucose (Fingerstick) 126 mg/dL (70-99) 161 mg/dL (70-99) 128 mg/dL (70-99) White Blood Count 3.4 x10^3/uL (4.0-11.0) Red Blood Count 3.07 x10^6/uL (3.50-5.40) Hemoglobin 9.5 g/dL (12.0-15.5) Hematocrit 30.2 % (36.0-47.0) Mean Corpuscular Volume 98 fL (79-100) Mean Corpuscular Hemoglobin 31 pg (25-35) Mean Corpuscular Hemoglobin Concent 31 g/dL (31-37) Red Cell Distribution Width 14.1 % (11.5-14.5) Platelet Count 116 x10^3/uL (140-400) Sodium Level 135 mmol/L (136-145) Potassium Level 4.8 mmol/L (3.5-5.1) Chloride Level 97 mmol/L (98-107) Carbon Dioxide Level 30 mmol/L (21-32) Anion Gap 8 (6-14) Blood Urea Nitrogen 35 mg/dL (7-20) Creatinine 6.1 mg/dL (0.6-1.0) Estimated GFR (Cockcroft-Gault) 8.3 Glucose Level 146 mg/dL (70-99) Calcium Level 8.8 mg/dL (8.5-10.1) Hepatitis B Surface Antigen Nonreactive (Nonreactive) Problem List Problems Medical Problems: (1) ESRD (end stage renal disease) Status: Acute (2) Tremulousness Status: Acute (3) UTI (urinary tract infection) Status: Acute SYL JAMES MD March 24, 2019 12:17
[2019-03-24] MEDS ORDERED: PHENYLEPHRINE in 0.9% NACL PF 1 MG/10 ML SYRINGE. IV ONE (12:33)
--- NOTE | 2019-03-24 13:10 | PDOC4 ---
OPERATIVE NOTE Date: Date: March 24, 2019 Pre-Op Diagnosis: right side headache Post-Op Diagnosis: same Procedure Performed: right temporal artery biopsy Surgeon: Chadwick James Anesthesia Type: GETA plus local Blood Loss: minimal Specimans Obtained: right temporal artery Findings: normal anatomy Complications: none Operative Note: After obtaining informed consent, patient was taken to OR, induced under GETA and prepped in the usual fashion over right temporal area. Pulse was identified and marked. Vertical incision made with cautery. Temporal artery identified and dissected out for 2 cm. Artery ligated proximal and distally with 2 0 vicryl. Artery resected, noted to thick walled, c/w artery and sent to pathology for evaluation. No evidence of bleeding. Subcutaneous tissues closed with 3 0 vicryl. 4 0 monocryl was used to repair skin. Compression dressing placed. Patient tolerated procedure well and sent to PACU in stable condition. All counts correct. No immediate complications. Wound class is 1. SYL JAMES MD March 24, 2019 13:09
[2019-03-24] MEDS ORDERED: 0.9 % SODIUM CHLORIDE 10 ML DISP.SYRIN. IV PRN (13:15)
[2019-03-24] MEDS: fentaNYL PF VIAL 100 MCG/2 ML VIAL IV PRN ×3 (13:46→21:53)
[2019-03-24] MEDS: ALLOPURINOL 100 MG TABLET. PO SCH (13:58)
[2019-03-24] MEDS: CITALOPRAM 10 MG TABLET. PO SCH (13:58)
[2019-03-24] MEDS: FOLIC/VIT B COMP W-C (RENAL) TABLET. PO SCH (13:58)
[2019-03-24] MEDS: CINACALCET HCL 30 MG TABLET PO SCH (13:58)
[2019-03-24] MEDS ORDERED: methylPREDNISolone SOD SUCC PF 125 MG/2 ML VIAL. IV ONE (16:00)
[2019-03-24] MEDS: HYDROcodone/APAP 5/325MG 1 TAB TABLET PO PRN (17:57)
[2019-03-24] MEDS: GABAPENTIN 300 MG CAPSULE. PO SCH (20:27)
[2019-03-24] MEDS: BENZOCAINE/MENTHOL LOZENGE. PO PRN ×2 (20:28→21:57)
[2019-03-24] MEDS: CEPHALEXIN 250 MG CAPSULE. PO SCH (20:28)
[2019-03-24] MEDS: METOPROLOL SUCC 24HR ER 25 MG TAB.ER.24H. PO SCH (20:28)
[2019-03-24] MEDS: SIMVASTATIN 40 MG TABLET. PO SCH (21:00)
[2019-03-25] MEDS: HYDROcodone/APAP 5/325MG 1 TAB TABLET PO PRN ×3 (01:04→21:21)
[2019-03-25 03:35] VITALS: BP 136/71
[2019-03-25 07:00] VITALS: BP 134/56
[2019-03-25] MEDS: ALBUTEROL SULFATE 2.5 MG/3 ML NEBU. NEB SCH ×4 (07:28→20:00)
[2019-03-25] MEDS: METOCLOPRAMIDE 5 MG TABLET. PO SCH ×4 (07:30→21:22)
[2019-03-25] MEDS: CINACALCET HCL 30 MG TABLET PO SCH (08:34)
[2019-03-25] MEDS: CLOPIDOGREL BISULFATE 75 MG TABLET PO SCH (08:34)
[2019-03-25] MEDS: FOLIC/VIT B COMP W-C (RENAL) TABLET. PO SCH (08:34)
[2019-03-25] MEDS: CYCLOBENZAPRINE 10 MG TABLET. PO SCH ×2 (08:35→21:22)
[2019-03-25] MEDS: cloNIDine HCL 0.1 MG TABLET PO SCH ×3 (08:35→21:21)
[2019-03-25] MEDS: LACTOBACILLUS RHAMNOSUS GG 1 CAPSULE. PO SCH ×2 (08:35→21:20)
[2019-03-25] MEDS: predniSONE 10 MG TABLET PO SCH (08:35)
[2019-03-25] MEDS: SENNOSIDES 8.6 MG TABLET PO SCH ×2 (08:35→21:21)
[2019-03-25] MEDS: ALLOPURINOL 100 MG TABLET. PO SCH (08:36)
[2019-03-25] MEDS: CITALOPRAM 10 MG TABLET. PO SCH (08:36)
[2019-03-25] MEDS: CALCIUM ACETATE 667 MG CAPSULE PO SCH ×3 (08:36→17:11)
[2019-03-25] MEDS: levETIRAcetam 500 MG TABLET PO SCH ×2 (08:37→21:21)
[2019-03-25] MEDS: INSULIN LISPRO 300 UNITS/3 ML INSULN.PEN. SQ SCH ×3 (08:49→17:19)
--- NOTE | 2019-03-25 08:58 | PDOC ---
SURGICAL PROGRESS NOTE Subjective some pain to biopsy site Vital Signs Vital Signs Date Time Temp Pulse Resp B/P (MAP) Pulse Ox O2 Delivery O2 Flow Rate FiO2 03/25/19 08:36 16 Nasal Cannula 2.0 03/25/19 08:35 73 134/56 03/25/19 07:00 98.2 97 98.2 I&O l Intake and Output 03/25/19 06:59 Intake Total 200 ml Output Total 10 ml Balance 190 ml Intake Oral 0 ml IV Total 200 ml Estimated Blood Loss 10 ml # Voids 1 General: Alert, Cooperative HEENT: Other (right TA site c/d/i, no bleeding or ecchymosis) Labs Laboratory Tests Test 03/23/19 11:07 03/23/19 16:55 03/23/19 19:53 03/24/19 07:29 Glucose (Fingerstick) 150 mg/dL (70-99) 126 mg/dL (70-99) 161 mg/dL (70-99) 128 mg/dL (70-99) Test 03/24/19 08:55 03/24/19 13:16 03/24/19 16:02 03/24/19 19:57 White Blood Count 3.4 x10^3/uL (4.0-11.0) Red Blood Count 3.07 x10^6/uL (3.50-5.40) Hemoglobin 9.5 g/dL (12.0-15.5) Hematocrit 30.2 % (36.0-47.0) Mean Corpuscular Volume 98 fL (79-100) Mean Corpuscular Hemoglobin 31 pg (25-35) Mean Corpuscular Hemoglobin Concent 31 g/dL (31-37) Red Cell Distribution Width 14.1 % (11.5-14.5) Platelet Count 116 x10^3/uL (140-400) Sodium Level 135 mmol/L (136-145) Potassium Level 4.8 mmol/L (3.5-5.1) Chloride Level 97 mmol/L (98-107) Carbon Dioxide Level 30 mmol/L (21-32) Anion Gap 8 (6-14) Blood Urea Nitrogen 35 mg/dL (7-20) Creatinine 6.1 mg/dL (0.6-1.0) Estimated GFR (Cockcroft-Gault) 8.3 Glucose Level 146 mg/dL (70-99) Calcium Level 8.8 mg/dL (8.5-10.1) Hepatitis B Surface Antigen Nonreactive (Nonreactive) Glucose (Fingerstick) 103 mg/dL (70-99) 124 mg/dL (70-99) 223 mg/dL (70-99) Test 03/25/19 07:45 Glucose (Fingerstick) 334 mg/dL (70-99) Laboratory Tests Test 03/24/19 13:16 03/24/19 16:02 03/24/19 19:57 03/25/19 07:45 Glucose (Fingerstick) 103 mg/dL (70-99) 124 mg/dL (70-99) 223 mg/dL (70-99) 334 mg/dL (70-99) Problem List Problems Medical Problems: (1) ESRD (end stage renal disease) Status: Acute (2) Tremulousness Status: Acute (3) UTI (urinary tract infection) Status: Acute Assessment/Plan s/p TA bx biopsy results pending incision without bleeding available as needed YONNY CORONADO CALL WORKER March 25, 2019 08:58
--- NOTE | 2019-03-25 09:46 | PDOC ---
IM PROGRESS NOTES- Subjective Subjective Headaches are improving. Objective Vitals Vital Signs Date Time Temp Pulse Resp B/P (MAP) Pulse Ox O2 Delivery O2 Flow Rate FiO2 03/25/19 08:36 16 Nasal Cannula 2.0 03/25/19 08:35 73 134/56 03/25/19 07:00 98.2 97 98.2 Input & Output Intake and Output 03/25/19 07:00 Intake Total 200 ml Output Total 10 ml Balance 190 ml Intake Oral 0 ml IV Total 200 ml Estimated Blood Loss 10 ml # Voids 1 Physical Exam Physical Exam General appearance - alert,well appearing, and in no distress and oriented to person, place, and time, obese Mental Status - alert, oriented to person, place, and time, affect appropriate to mood Head -incision okay. Chest - clear to auscultation, no wheezes, rales or rhonchi, symmetric air entry Heart - S1 and S2 normal Abdomen - soft, nontender, nondistended, no masses or organomegaly Neurological - alert and oriented Musculoskeletal - no muscular tenderness noted Extremities - no pedal edema Skin - warm and dry Labs Laboratory Tests Test 03/23/19 11:07 03/23/19 16:55 03/23/19 19:53 03/24/19 07:29 Glucose (Fingerstick) 150 mg/dL (70-99) 126 mg/dL (70-99) 161 mg/dL (70-99) 128 mg/dL (70-99) Test 03/24/19 08:55 03/24/19 13:16 03/24/19 16:02 03/24/19 19:57 White Blood Count 3.4 x10^3/uL (4.0-11.0) Red Blood Count 3.07 x10^6/uL (3.50-5.40) Hemoglobin 9.5 g/dL (12.0-15.5) Hematocrit 30.2 % (36.0-47.0) Mean Corpuscular Volume 98 fL (79-100) Mean Corpuscular Hemoglobin 31 pg (25-35) Mean Corpuscular Hemoglobin Concent 31 g/dL (31-37) Red Cell Distribution Width 14.1 % (11.5-14.5) Platelet Count 116 x10^3/uL (140-400) Sodium Level 135 mmol/L (136-145) Potassium Level 4.8 mmol/L (3.5-5.1) Chloride Level 97 mmol/L (98-107) Carbon Dioxide Level 30 mmol/L (21-32) Anion Gap 8 (6-14) Blood Urea Nitrogen 35 mg/dL (7-20) Creatinine 6.1 mg/dL (0.6-1.0) Estimated GFR (Cockcroft-Gault) 8.3 Glucose Level 146 mg/dL (70-99) Calcium Level 8.8 mg/dL (8.5-10.1) Hepatitis B Surface Antigen Nonreactive (Nonreactive) Glucose (Fingerstick) 103 mg/dL (70-99) 124 mg/dL (70-99) 223 mg/dL (70-99) Test 03/25/19 07:45 Glucose (Fingerstick) 334 mg/dL (70-99) Laboratory Tests Test 03/24/19 13:16 03/24/19 16:02 03/24/19 19:57 03/25/19 07:45 Glucose (Fingerstick) 103 mg/dL (70-99) 124 mg/dL (70-99) 223 mg/dL (70-99) 334 mg/dL (70-99) Meds Current Medications Bupivacaine HCl/ Epinephrine Bitart (Sensorcain-Mpf Epi 0.5%-[id number]) 30 ml STK-MED ONCE .ROUTE Last administered on 03/24/19at 12:55; Start 03/24/19 at 10 :53; Stop 03/24/19 at 11:54; Status DC Dexamethasone Sodium Phosphate (Decadron) 4 mg STK-MED ONCE .ROUTE ; Start 03/24/19 at 11:36; Stop 03/24/19 at 11:37; Status DC Fentanyl Citrate (Fentanyl 2ml Vial) 100 mcg STK-MED ONCE .ROUTE ; Start 03/24/19 at 11:36; Stop 03/24/19 at 11:37; Status DC Insulin Glargine (Lantus) 15 units DAILY08 SQ ; Start 03/25/19 at 09:45 Lidocaine HCl (Lidocaine Pf 2% Vial) 5 ml STK-MED ONCE .ROUTE ; Start 03/24/19 at 11:36; Stop 03/24/19 at 11:37; Status DC Methylprednisolone Sodium Succinate (SOLU-Medrol 125MG VIAL) 125 mg 1X ONCE IV Last administered on 03/24/19at 16:23; Start 03/24/19 at 16:00; Stop 03/24/19 at 16:01; Status DC Midazolam HCl (Versed) 2 mg STK-MED ONCE .ROUTE ; Start 03/24/19 at 11:36; Stop 03/24/19 at 11:37; Status DC Ondansetron HCl (Zofran) 4 mg STK-MED ONCE .ROUTE ; Start 03/24/19 at 11:36; Stop 03/24/19 at 11:37; Status DC Phenylephrine HCl (PHENYLEPHRINE in 0.9% NACL PF) 1 mg STK-MED ONCE IV ; Start 03/24/19 at 12:33; Stop 03/24/19 at 12:34; Status DC Prednisone (Prednisone) 50 mg DAILY PO Last administered on 03/25/19at 08:35; Start 03/25/19 at 09:00 Propofol 20 ml @ As Directed STK-MED ONCE IV ; Start 03/24/19 at 11:36; Stop 03/24/19 at 11:37; Status DC Sevoflurane (Ultane) 30 ml STK-MED ONCE IH ; Start 03/24/19 at 11:36; Stop 03/24/19 at 11:37; Status DC Sodium Chloride (Normal Saline Flush) 3 ml QSHIFT PRN IV AFTER MEDS AND BLOOD DRAWS; Start 03/24/19 at 13:15 Throat Lozenges (Cepacol Sore Throat Lozenge) 1 chris PRN Q2HRS PRN PO SORE THROAT Last administered on 03/24/19at 21:57; Start 03/24/19 at 20:00 Assessment Assessment Problems Medical Problems: (1) ESRD (end stage renal disease) Status: Acute (2) Tremulousness Status: Acute (3) UTI (urinary tract infection) Status: Acute FINAL IMPRESSION: headaches PSVT Sleep apnea 1. Severe headache. 2. Tremor-like activity, right upper and lower extremity. 3. History of previous stroke with left hemiparesis. 4. On Keppra for seizures. 5. End-stage renal disease, on dialysis. 6. Urinary tract infection. 7. Morbidly obese. PLAN: Patient had temporal artery biopsy yesterday. Headaches are improving. Tablets mellitus type II not controlled. Blood sugar this morning is 334. He is also higher due to oral steroids. Patient takes Lantus 15 units subcutaneous daily and NovoLog 5 units 3 times a day at home. I will restart her on Lantus 15 units subcutaneous daily and use sliding scale insulin 0-8 units a times a day before meals. Condition treatment discussed with the patient and the family. If she is stable and blood sugars are better controlled she could go home tomorrow if okay with the Dr. Diamond and other specialists. Plan Plan For more details regarding further plans, please refer to the orders. MIRIAM RODRIGUEZ MD March 25, 2019 09:46
[2019-03-25] MEDS: INSULIN GLARGINE 300 UNITS/3 ML INSULN.PEN. SQ SCH (09:48)
[2019-03-25 10:57] VITALS: BP 118/50
--- NOTE | 2019-03-25 12:06 | PDOC ---
PROGRESS NOTES Assessment Problems Medical Problems: (1) ESRD (end stage renal disease) Status: Acute (2) Tremulousness Status: Acute (3) UTI (urinary tract infection) Status: Acute Metabolic encephalopathy, renal failure Headaches, no headache now, but response to steroids is nonspecific. Elevated ESR, now with right temporal artery tenderness, temporal artery biopsy pending. Myoclonus, resolved, negative EEG 03/21, which does show evidence of encephalopathy, though Prior right middle cerebral artery stroke. History of epilepsy, EEG 03/21 negative for epileptic activity Episode of PSVT and apnea 03/21 night, cardiology following Plan Await right temporal artery biopsy results. Steroids Staying one more night to monitor her sugars with the steroids Continue levetiracetam Migraine cocktail, ketorolac, diphenhydramine, prochlorperazine, PRN, has not used (IV out) Hold on lumbar puncture. Subjective No headache at present Objective Vital Signs Date Time Temp Pulse Resp B/P (MAP) Pulse Ox O2 Delivery O2 Flow Rate FiO2 03/25/19 11:30 99 Nasal Cannula 2.0 03/25/19 10:57 98.1 70 20 118/50 (72) 98.1 Intake and Output 03/25/19 07:00 Intake Total 200 ml Output Total 10 ml Balance 190 ml Intake Oral 0 ml IV Total 200 ml Estimated Blood Loss 10 ml # Voids 1 PHYSICAL EXAM Somnulant, alerts easily, oriented to time, place and person. PERRL. EOMI. CN: Spastic dysarthria, left central facial weakness Muscle tone: increased on left. Muscle strength: 2/5 on left DTR: 2+ Plantar reflex: flexor Gait: not examined in bed. Sensory exam: no abnormal findings. No cerebellar signs elicited. Bandage over right temporal artery, can't assess tenderness Review of Relevant I have reviewed the following items gabbi (where applicable) has been applied. Labs Laboratory Tests Test 03/23/19 16:55 03/23/19 19:53 03/24/19 07:29 03/24/19 08:55 Glucose (Fingerstick) 126 mg/dL (70-99) 161 mg/dL (70-99) 128 mg/dL (70-99) White Blood Count 3.4 x10^3/uL (4.0-11.0) Red Blood Count 3.07 x10^6/uL (3.50-5.40) Hemoglobin 9.5 g/dL (12.0-15.5) Hematocrit 30.2 % (36.0-47.0) Mean Corpuscular Volume 98 fL (79-100) Mean Corpuscular Hemoglobin 31 pg (25-35) Mean Corpuscular Hemoglobin Concent 31 g/dL (31-37) Red Cell Distribution Width 14.1 % (11.5-14.5) Platelet Count 116 x10^3/uL (140-400) Sodium Level 135 mmol/L (136-145) Potassium Level 4.8 mmol/L (3.5-5.1) Chloride Level 97 mmol/L (98-107) Carbon Dioxide Level 30 mmol/L (21-32) Anion Gap 8 (6-14) Blood Urea Nitrogen 35 mg/dL (7-20) Creatinine 6.1 mg/dL (0.6-1.0) Estimated GFR (Cockcroft-Gault) 8.3 Glucose Level 146 mg/dL (70-99) Calcium Level 8.8 mg/dL (8.5-10.1) Hepatitis B Surface Antigen Nonreactive (Nonreactive) Test 03/24/19 13:16 03/24/19 16:02 03/24/19 19:57 03/25/19 07:45 Glucose (Fingerstick) 103 mg/dL (70-99) 124 mg/dL (70-99) 223 mg/dL (70-99) 334 mg/dL (70-99) Laboratory Tests Test 03/24/19 13:16 03/24/19 16:02 03/24/19 19:57 03/25/19 07:45 Glucose (Fingerstick) 103 mg/dL (70-99) 124 mg/dL (70-99) 223 mg/dL (70-99) 334 mg/dL (70-99) Medications Current Medications Hydralazine HCl (Apresoline Inj) 20 mg 1X ONCE IVP Last administered on 03/20/19at 07:54; Start 03/20/19 at 07:30; Stop 03/20/19 at 07:31; Status DC Lorazepam (Ativan) 0.5 mg 1X ONCE IV Last administered on 03/20/19at 07:59; Start 03/20/19 at 08:00; Stop 03/20/19 at 08:01; Status DC Ondansetron HCl (Zofran) 4 mg PRN Q8HRS PRN IV NAUSEA/VOMITING; Start 03/20/19 at 08:15; Stop 03/21/19 at 08:14; Status DC Insulin Human Lispro (HumaLOG) 0-5 UNITS TIDWMEALS SQ Last administered on 03/25/19 08:49; Start 03/20/19 at 12:00 Dextrose (Dextrose 50%-Water Syringe) 12.5 gm PRN Q15MIN PRN IV SEE COMMENTS; Start 03/20/19 at 08:15 Ceftriaxone Sodium (Rocephin) 1 gm Q24H IVP Last administered on 03/21/19 13: 53; Start 03/20/19 at 11:00; Stop 03/21/19 at 14:00; Status DC Allopurinol (Zyloprim) 100 mg DAILY PO Last administered on 03/25/19 08:36; Start 03/20/19 at 11:00 Alprazolam (Xanax) 0.25 mg PRN BID PRN PO ANXIETY / AGITATION Last administered on 03/21/19 20:49; Start 03/20/19 at 10:15 Cinacalcet (Sensipar) 30 mg DAILY PO Last administered on 03/25/19 08:34; Start 03/20/19 at 11:00 Citalopram Hydrobromide (CeleXA) 10 mg DAILY PO Last administered on 03/25/19 08:36; Start 03/20/19 at 11:00 Clonidine HCl (Catapres) 0.1 mg TID PO Last administered on 03/25/19 08:35; Start 03/20/19 at 14:00 Clopidogrel Bisulfate (Plavix) 75 mg DAILY PO Last administered on 03/25/19 08:34; Start 03/20/19 at 11:00 Cyclobenzaprine HCl (Flexeril) 10 mg BID PO Last administered on 03/25/19 08:35; Start 03/20/19 at 11:00 Gabapentin (Neurontin) 300 mg HS PO Last administered on 03/24/19 20:27; Start 03/20/19 at 21:00 Acetaminophen/ Hydrocodone Bitart (Lortab 5/325) 1 tab PRN Q6HRS PRN PO MODERATE PAIN Last administered on 03/25/19 08:36; Start 03/20/19 at 10:15 Levetiracetam (Keppra) 500 mg BID PO ; Start 03/20/19 at 11:00; Stop 03/20/19 at 11:00; Status DC Metoclopramide HCl (Reglan) 2.5 mg QIDACHS PO Last administered on 03/24/19 16:22; Start 03/20/19 at 11:30 Non-Formulary Medication (Levalbuterol Tartrate (Xopenex Hfa)) 2 puff QID IH ; Start 03/20/19 at 13:00; Status UNV Non-Formulary Medication (Naloxegol Oxalate (Movantik)) 25 mg DAILY PO ; Start 03/21/19 at 09:00; Stop 03/22/19 at 08:35; Status DC Sennosides (Senna) 8.6 mg BID PO Last administered on 03/25/19 08:35; Start 03/20/19 at 10:30 Simvastatin (Zocor) 40 mg QHS PO Last administered on 03/24/19 21:00; Start 03/20/19 at 21:00 Vitamin B Complex/ Vitamin C (Makayla-Britton) 1 tab DAILY PO Last administered on 03/25/19 08:34; Start 03/20/19 at 11:00 Calcium Acetate (Phoslo) 2,001 mg TIDWMEALS PO Last administered on 03/25/19 08:36; Start 03/20/19 at 12:00 Levetiracetam (Keppra) 1,000 mg BID PO Last administered on 03/25/19 08:37; Start 03/20/19 at 11:00 Albuterol Sulfate (Ventolin Neb Soln) 2.5 mg RTQID NEB Last administered on 03/25/19 11:28; Start 03/20/19 at 12:00 Sodium Chloride 1,000 ml @ 1,000 mls/hr Q1H PRN IV hypotension; Start 03/20/19 at 13:30; Stop 03/20/19 at 19:29; Status DC Sodium Chloride 1,000 ml @ 400 mls/hr Q2H30M PRN IV PATENCY; Start 03/20/19 at 13:30; Stop 03/21/19 at 01:29; Status DC Info (PHARMACY MONITORING -- do not chart) 1 each PRN DAILY PRN MC SEE COMMENTS; Start 03/20/19 at 14:15; Status UNV Info (PHARMACY MONITORING -- do not chart) 1 each PRN DAILY PRN MC SEE COMMENTS; Start 03/20/19 at 14:15; Status Cancel Ketorolac Tromethamine (Toradol 15mg Vial) 15 mg PRN Q6HRS PRN IV PAIN; Start 03/21/19 at 09:00; Stop 03/26/19 at 08:59 Diphenhydramine HCl (Benadryl) 25 mg PRN Q6HRS PRN IVP ITCHING; Start 03/21/19 at 09:00 Prochlorperazine Edisylate (Compazine) 10 mg PRN Q6HRS PRN IV NAUSEA/VOMITING; Start 03/21/19 at 09:00 Cephalexin HCl (Keflex) 500 mg BID PO ; Start 03/21/19 at 21:00; Stop 03/21/19 at 21:00; Status DC Lactobacillus Rhamnosus (Culturelle) 1 cap BID PO Last administered on 03/25/19at 08:35; Start 03/21/19 at 21:00 Cephalexin HCl (Keflex) 500 mg QHS PO Last administered on 03/24/19at 20:28; Start 03/21/19 at 21:00 Sodium Chloride 1,000 ml @ 1,000 mls/hr Q1H PRN IV hypotension; Start 03/22/19 at 08:24; Stop 03/22/19 at 14:23; Status DC Diphenhydramine HCl (Benadryl) 25 mg 1X PRN PRN IV ITCHING; Start 03/22/19 at 08:30; Stop 03/23/19 at 08:29; Status DC Diphenhydramine HCl (Benadryl) 25 mg 1X PRN PRN IV ITCHING; Start 03/22/19 at 0 8:30; Stop 03/23/19 at 08:29; Status DC Sodium Chloride 1,000 ml @ 400 mls/hr Q2H30M PRN IV PATENCY; Start 03/22/19 at 08:24; Stop 03/22/19 at 20:23; Status DC Info (PHARMACY MONITORING -- do not chart) 1 each PRN DAILY PRN MC SEE COMMENTS; Start 03/22/19 at 08:30; Status UNV Info (PHARMACY MONITORING -- do not chart) 1 each PRN DAILY PRN MC SEE COMMENTS; Start 03/22/19 at 08:30; Stop 03/24/19 at 15:22; Status DC Metoprolol Succinate (Toprol Xl) 25 mg QHS PO Last administered on 03/24/19at 20:28; Start 03/22/19 at 21:00 Fentanyl Citrate (Fentanyl 2ml Vial) 25 mcg PRN Q5MIN PRN IV MILD PAIN; Start 03/24/19 at 07:00; Stop 03/25/19 at 06:59; Status DC Fentanyl Citrate (Fentanyl 2ml Vial) 50 mcg PRN Q5MIN PRN IV MODERATE TO SEVERE PAIN Last administered on 03/24/19at 21:53; Start 03/24/19 at 07:00; Stop 03/25/19 at 06:59; Status DC Morphine Sulfate (Morphine Sulfate) 1 mg PRN Q10MIN PRN IV SEVERE PAIN; Start 03/24/19 at 07:00; Stop 03/25/19 at 06:59; Status DC Ringer's Solution 1,000 ml @ 30 mls/hr Q24H IV Last administered on 03/24/19at 07:00; Start 03/24/19 at 07:00; Stop 03/24/19 at 18:59; Status DC Lidocaine HCl (Xylocaine-Mpf 1% 2ml Vial) 2 ml PRN 1X PRN ID PRIOR TO IV START; Start 03/24/19 at 07:00; Stop 03/25/19 at 06:59; Status DC Hydromorphone HCl (Dilaudid) 0.5 mg PRN Q10MIN PRN IV SEV PAIN, Second choice; Start 03/24/19 at 07:00; Stop 03/25/19 at 06:59; Status DC Sodium Chloride 1,000 ml @ 1,000 mls/hr Q1H PRN IV hypotension; Start 03/24/19 at 07:40; Stop 03/24/19 at 13:39; Status DC Diphenhydramine HCl (Benadryl) 25 mg 1X PRN PRN IV ITCHING; Start 03/24/19 at 07:45; Stop 03/25/19 at 07:44; Status DC Diphenhydramine HCl (Benadryl) 25 mg 1X PRN PRN IV ITCHING; Start 03/24/19 at 07:45; Stop 03/25/19 at 07:44; Status DC Sodium Chloride 1,000 ml @ 400 mls/hr Q2H30M PRN IV PATENCY; Start 03/24/19 at 07:40; Stop 03/24/19 at 19:39; Status DC Info (PHARMACY MONITORING -- do not chart) 1 each PRN DAILY PRN MC SEE COMMENTS; Start 03/24/19 at 07:45 Methylprednisolone Sodium Succinate (SOLU-Medrol 125MG VIAL) 125 mg 1X ONCE IV Last administered on 03/24/19at 16:23; Start 03/24/19 at 16:00; Stop 03/24/19 at 16:01; Status DC Prednisone (Prednisone) 50 mg DAILY PO Last administered on 03/25/19at 08:35; Start 03/25/19 at 09:00 Sevoflurane (Ultane) 30 ml STK-MED ONCE IH ; Start 03/24/19 at 11:36; Stop 03/24/19 at 11:37; Status DC Fentanyl Citrate (Fentanyl 2ml Vial) 100 mcg STK-MED ONCE .ROUTE ; Start 03/24/19 at 11:36; Stop 03/24/19 at 11:37; Status DC Midazolam HCl (Versed) 2 mg STK-MED ONCE .ROUTE ; Start 03/24/19 at 11:36; Stop 03/24/19 at 11:37; Status DC Propofol 20 ml @ As Directed STK-MED ONCE IV ; Start 03/24/19 at 11:36; Stop 03/24/19 at 11:37; Status DC Lidocaine HCl (Lidocaine Pf 2% Vial) 5 ml STK-MED ONCE .ROUTE ; Start 03/24/19 at 11:36; Stop 03/24/19 at 11:37; Status DC Dexamethasone Sodium Phosphate (Decadron) 4 mg STK-MED ONCE .ROUTE ; Start 03/24/19 at 11:36; Stop 03/24/19 at 11:37; Status DC Ondansetron HCl (Zofran) 4 mg STK-MED ONCE .ROUTE ; Start 03/24/19 at 11:36; Stop 03/24/19 at 11:37; Status DC Bupivacaine HCl/ Epinephrine Bitart (Sensorcain-Mpf Epi 0.5%-1:[id number]) 30 ml STK-MED ONCE .ROUTE Last administered on 03/24/19at 12:55; Start 03/24/19 at 10:53; Stop 03/24/19 at 11:54; Status DC Phenylephrine HCl (PHENYLEPHRINE in 0.9% NACL PF) 1 mg STK-MED ONCE IV ; Start 03/24/19 at 12:33; Stop 03/24/19 at 12:34; Status DC Sodium Chloride (Normal Saline Flush) 3 ml QSHIFT PRN IV AFTER MEDS AND BLOOD DRAWS; Start 03/24/19 at 13:15 Throat Lozenges (Cepacol Sore Throat Lozenge) 1 chris PRN Q2HRS PRN PO SORE THROAT Last administered on 03/24/19at 21:57; Start 03/24/19 at 20:00 Insulin Glargine (Lantus) 15 units DAILY08 SQ Last administered on 03/25/19at 09:48; Start 03/25/19 at 09:45 Active Scripts Active Keflex (Cephalexin) 500 Mg Capsule 1 Cap PO BID Metoprolol Succinate ( Xl ) (Metoprolol Succinate) 25 Mg Tab.er.24h 25 Mg PO QHS 30 Days Reported [phoslo] 2,001 Mg PO TID Movantik (Naloxegol Oxalate) 25 Mg Tablet 25 Mg PO DAILY Xopenex Hfa (Levalbuterol Tartrate) 15 Gm Hfa.aer.ad 2 Puff IH QID Keppra (Levetiracetam) 500 Mg Tablet 1 Tab PO BID Vol-Care Rx Tablet (Vit B Cmplx 3/Fa/Vit C/Biotin) 1 Each Tablet 1 Each PO DAILY Clopidogrel (Clopidogrel Bisulfate) 75 Mg Tablet 1 Tab PO DAILY Alprazolam 0.25 Mg Tablet 1 Tab PO PRN BID PRN Celexa (Citalopram Hydrobromide) 10 Mg Tablet 1 Tab PO DAILY Allopurinol 100 Mg Tablet 1 Tab PO DAILY Sensipar (Cinacalcet Hcl) 30 Mg Tablet 1 Tab PO DAILY Simvastatin 40 Mg Tablet 1 Tab PO QHS Gabapentin (Gabapentin) 300 Mg Capsule 1 Cap PO HS Senna (Sennosides) 8.6 Mg Capsule 8.6 Mg PO BID Cyclobenzaprine Hcl 10 Mg Tablet 1 Tab PO BID Reglan (Metoclopramide Hcl) 10 Mg Tablet 5 Mg PO QIDACHS Clonidine Hcl 0.1 Mg Tablet 1 Tab PO TID Hydrocodone-Apap 5-325 (Hydrocodone Bit/Acetaminophen) 1 Each Tablet 1 Tab PO PRN Q6HRS PRN Vitals/I & O Vital Sign - Last 24 Hours 03/24/19 03/24/19 03/24/19 03/24/19 13:09 13:09 13:15 13:25 Temp 98.0 98.0 98.0 98.0 Pulse 78 64 67 Resp 18 13 B/P (MAP) 97/40 106/45 (65) 113/50 Pulse Ox 98 100 O2 Delivery Mask Nasal Cannula Simple Mask O2 Flow Rate 10 10 10 03/24/19 03/24/19 03/24/19 03/24/19 13:30 13:40 13:40 13:45 Temp 98.1 98.1 Pulse 66 72 71 Resp 18 B/P (MAP) 123/51 (75) 130/45 122/61 (81) Pulse Ox 100 O2 Delivery Nasal Cannula Mask O2 Flow Rate 2 2 03/24/19 03/24/19 03/24/19 03/24/19 13:46 13:49 14:00 14:00 Pulse 60 Resp 16 17 B/P (MAP) 100/45 130/71 (90) Pulse Ox 99 95 86 O2 Delivery Nasal Cannula Room Air O2 Flow Rate 2.0 03/24/19 03/24/19 03/24/19 03/24/19 14:15 14:45 15:15 16:08 Pulse 68 74 62 B/P (MAP) 137/67 (90) 141/76 (97) 139/69 (92) Pulse Ox 96 98 100 99 O2 Delivery Nasal Cannula O2 Flow Rate 2.0 03/24/19 03/24/19 03/24/19 03/24/19 16:15 17:10 17:15 17:57 Temp 98.3 98.3 Pulse 71 76 76 B/P (MAP) 130/67 (88) 151/84 (106) 151/84 (106) Pulse Ox 92 92 O2 Delivery Nasal Cannula 03/24/19 03/24/19 03/24/19 03/24/19 19:10 20:16 20:27 20:28 Temp 98.3 98.3 Pulse 76 76 76 B/P (MAP) 151/84 (106) 151/84 151/84 Pulse Ox 92 99 O2 Delivery Nasal Cannula O2 Flow Rate 2.0 03/24/19 03/24/19 03/24/19 03/25/19 21:53 22:25 23:05 01:04 Temp 98.4 98.4 Pulse 74 Resp 20 B/P (MAP) 132/56 (81) Pulse Ox 97 O2 Delivery Nasal Cannula O2 Flow Rate 2.0 2.0 2.0 2.0 03/25/19 03/25/19 03/25/19 03/25/19 03:35 07:00 07:29 08:00 Temp 97.6 98.2 97.6 98.2 Pulse 68 73 Resp 16 20 B/P (MAP) 136/71 (92) 134/56 (82) Pulse Ox 97 97 O2 Delivery Nasal Cannula Nasal Cannula Nasal Cannula Nasal Cannula O2 Flow Rate 2.0 2.0 2.0 2.0 03/25/19 03/25/19 03/25/19 03/25/19 08:35 08:36 09:43 10:57 Temp 98.1 98.1 Pulse 73 70 Resp 16 17 20 B/P (MAP) 134/56 118/50 (72) Pulse Ox 100 O2 Delivery Nasal Cannula Nasal Cannula Nasal Cannula O2 Flow Rate 2.0 2.0 2.0 03/25/19 11:30 Pulse Ox 99 O2 Delivery Nasal Cannula O2 Flow Rate 2.0 Intake and Output 03/24/19 03/24/19 03/25/19 15:00 23:00 07:00 Intake Total 200 ml 0 ml Output Total 10 ml Balance 190 ml 0 ml PATRICIA SILVEIRA MD March 25, 2019 12:06
--- NOTE | 2019-03-25 12:28 | PDOC ---
Renal-Progress Notes Subjective Notes Notes FEELS ABOUT THE SAME History of Present Illness Hx of present illness STABLE Vitals Vitals Vital Signs Date Time Temp Pulse Resp B/P (MAP) Pulse Ox O2 Delivery O2 Flow Rate FiO2 03/25/19 11:30 99 Nasal Cannula 2.0 03/25/19 10:57 98.1 70 20 118/50 (72) 98.1 Weight Weight [ ] I.O. Intake and Output Intake and Output 03/25/19 07:00 Intake Total 200 ml Output Total 10 ml Balance 190 ml Intake Oral 0 ml IV Total 200 ml Estimated Blood Loss 10 ml # Voids 1 Labs Labs Laboratory Tests Test 03/24/19 13:16 03/24/19 16:02 03/24/19 19:57 03/25/19 07:45 Glucose (Fingerstick) 103 mg/dL (70-99) 124 mg/dL (70-99) 223 mg/dL (70-99) 334 mg/dL (70-99) Test 03/25/19 12:05 Glucose (Fingerstick) 276 mg/dL (70-99) Review of Systems Constitutional: yes: alert, oriented Ears/Nose/Throat: Yes: no symptom reported Eyes: Yes: no symptom reported Pulmonary: Yes no symptom reported Cardiovascular: Yes no symptom reported Gastrointestional: Yes: no symptom reported Musculoskeletal: Yes: muscle stiffness Skin: Yes no symptom reported Psychiatric/Neurological: Yes: headache Physical Exam General Appearance: no apparent distress Skin: warm Respiratory: decreased breath sounds Abdomen: soft Genitourinary: bladder flat Extremities: pulses present Neurology: alert, follow commands Musculoskeletal: Other Assessment Assessment IMP ESRD ANEMIA HEADACHES S/P TEMP ARTERY BX PLAN NEURO EVAL HD MWF ARANESP WILL FOLLOW MEJIA RAMOS MD March 25, 2019 12:28
[2019-03-25 15:00] VITALS: BP 130/60
[2019-03-25 19:15] VITALS: BP 123/51
[2019-03-25] MEDS ORDERED: INSULIN LISPRO 300 UNITS/3 ML INSULN.PEN. SQ ONE (21:00)
[2019-03-25] MEDS: METOPROLOL SUCC 24HR ER 25 MG TAB.ER.24H. PO SCH (21:21)
[2019-03-25] MEDS: GABAPENTIN 300 MG CAPSULE. PO SCH (21:21)
[2019-03-25] MEDS: CEPHALEXIN 250 MG CAPSULE. PO SCH (21:22)
[2019-03-25] MEDS: SIMVASTATIN 40 MG TABLET. PO SCH (21:22)
[2019-03-25 23:15] VITALS: BP 125/50
[2019-03-26 03:15] VITALS: BP 140/59
[2019-03-26 07:00] VITALS: BP 137/64
[2019-03-26] MEDS: ALBUTEROL SULFATE 2.5 MG/3 ML NEBU. NEB SCH ×4 (08:00→20:26)
[2019-03-26] MEDS: CALCIUM ACETATE 667 MG CAPSULE PO SCH ×3 (08:48→17:32)
[2019-03-26] MEDS: CINACALCET HCL 30 MG TABLET PO SCH (08:48)
[2019-03-26] MEDS: METOCLOPRAMIDE 5 MG TABLET. PO SCH ×4 (08:49→21:44)
[2019-03-26] MEDS: FOLIC/VIT B COMP W-C (RENAL) TABLET. PO SCH (08:49)
[2019-03-26] MEDS: CYCLOBENZAPRINE 10 MG TABLET. PO SCH ×2 (08:49→21:45)
[2019-03-26] MEDS: levETIRAcetam 500 MG TABLET PO SCH ×2 (08:50→21:44)
[2019-03-26] MEDS: SENNOSIDES 8.6 MG TABLET PO SCH ×2 (08:50→21:44)
[2019-03-26] MEDS: LACTOBACILLUS RHAMNOSUS GG 1 CAPSULE. PO SCH ×2 (08:50→21:44)
[2019-03-26] MEDS: CITALOPRAM 10 MG TABLET. PO SCH (08:50)
[2019-03-26] MEDS: ALLOPURINOL 100 MG TABLET. PO SCH (08:50)
[2019-03-26] MEDS: predniSONE 10 MG TABLET PO SCH (08:50)
[2019-03-26] MEDS: CLOPIDOGREL BISULFATE 75 MG TABLET PO SCH (08:50)
[2019-03-26] MEDS: cloNIDine HCL 0.1 MG TABLET PO SCH ×3 (08:51→21:45)
[2019-03-26] MEDS: INSULIN LISPRO 300 UNITS/3 ML INSULN.PEN. SQ SCH ×6 (09:01→17:39)
[2019-03-26] MEDS: INSULIN GLARGINE 300 UNITS/3 ML INSULN.PEN. SQ SCH (09:02)
[2019-03-26] MEDS ORDERED: INSU100I13 SQ (09:23)
[2019-03-26] MEDS ORDERED: PRED-220 PO (09:23)
[2019-03-26] MEDS ORDERED: INSU100I17 SQ (09:23)
--- NOTE | 2019-03-26 09:27 | DISCH ---
DISCHARGE INSTRUCTIONS Condition on Discharge Condition on Discharge: Stable Activity After Discharge Activity Instructions for Disc: No restrictions, Activity as tolerated Diet after Discharge Diet after Discharge: Renal Dialysis (ADA), Diabetic No Calorie Level Additional Diet Restrictions: 1800 malena ADA Diet Texture: Regular Liquid Texture: Thin Liquid Swallowing Supervision: None needed Wound Incision Care Wound Care Equipment: Wound vac Checks after Discharge Checks after discharge: Check blood press - daily, Check blood sugar, ac/hs, Check your Temp as needed, Weigh Yourself Daily Contacting the DR. after DC Call your doctor for: Concerns you may have Follow-Up Follow up with: in 3 days Follow Up With: , Treatment/Equipment after DC Adaptive Equipment Issued: None, Wheelchair Discharge Respiratory Equipmen: Oxygen (Nasal Canula 2 lit/min) MIRIAM RODRIGUEZ MD March 26, 2019 09:27
--- NOTE | 2019-03-26 10:08 | PDOC ---
IM PROGRESS NOTES- Subjective Subjective Headaches are improving. Objective Vitals Vital Signs Date Time Temp Pulse Resp B/P (MAP) Pulse Ox O2 Delivery O2 Flow Rate FiO2 03/26/19 09:44 99 Nasal Cannula 2.0 03/26/19 08:51 63 137/64 03/26/19 07:00 97.9 20 97.9 Input & Output Intake and Output 03/26/19 07:00 Intake Total 1180 ml Balance 1180 ml Intake Oral 1180 ml Physical Exam Physical Exam General appearance - alert,well appearing, and in no distress and oriented to person, place, and time, obese Mental Status - alert, oriented to person, place, and time, affect appropriate to mood Head -incision okay. Chest - clear to auscultation, no wheezes, rales or rhonchi, symmetric air entry Heart - S1 and S2 normal Abdomen - soft, nontender, nondistended, no masses or organomegaly Neurological - alert and oriented Musculoskeletal - no muscular tenderness noted Extremities - no pedal edema Skin - warm and dry, dressing on the right temporal area She is on oxygen by nasal cannula. Labs Laboratory Tests Test 03/24/19 13:16 03/24/19 16:02 03/24/19 19:57 03/25/19 07:45 Glucose (Fingerstick) 103 mg/dL (70-99) 124 mg/dL (70-99) 223 mg/dL (70-99) 334 mg/dL (70-99) Test 03/25/19 12:05 03/25/19 16:42 03/25/19 20:39 03/26/19 07:40 Glucose (Fingerstick) 276 mg/dL (70-99) 263 mg/dL (70-99) 339 mg/dL (70-99) 231 mg/dL (70-99) Laboratory Tests Test 03/25/19 12:05 03/25/19 16:42 03/25/19 20:39 03/26/19 07:40 Glucose (Fingerstick) 276 mg/dL (70-99) 263 mg/dL (70-99) 339 mg/dL (70-99) 231 mg/dL (70-99) Meds Current Medications Insulin Human Lispro (HumaLOG) 5 units TIDAC SQ Last administered on 03/26/19at 09:01; Start 03/26/19 at 07:30 Insulin Human Lispro (HumaLOG) 5 units TIDAC SQ ; Start 03/26/19 at 11:30; Status UNV Insulin Human Lispro (HumaLOG) 6 units 1X ONCE SQ Last administered on 03/25/19at 21:27; Start 03/25/19 at 21:00; Stop 03/25/19 at 21:01; Status DC Assessment Assessment Problems Medical Problems: (1) ESRD (end stage renal disease) Status: Acute (2) Tremulousness Status: Acute (3) UTI (urinary tract infection) Status: Acute FINAL IMPRESSION: headaches PSVT Sleep apnea 1. Severe headache. 2. Tremor-like activity, right upper and lower extremity. 3. History of previous stroke with left hemiparesis. 4. On Keppra for seizures. 5. End-stage renal disease, on dialysis. 6. Urinary tract infection. 7. Morbidly obese. PLAN: Patient had temporal artery biopsy yesterday. Headaches are improving. Tablets mellitus type II not controlled. Blood sugar 334,239. It is also higher due to oral steroids. Patient takes Lantus 15 units subcutaneous daily and NovoLog 5 units 3 times a day at home. I will restart her on Lantus 15 units subcutaneous daily and use sliding scale insulin 0-8 units a times a day before meals. I will restart her NovoLog 5 units 3 times a day before meals along with the sliding scale insulin. Patient does not want to go home today .she feels a little weaker and wants to control her blood sugars better and get hemodialysis before she goes back home. We will postpone the discharge still tomorrow. Plan Plan For more details regarding further plans, please refer to the orders. MIRIAM RODRIGUEZ MD March 26, 2019 10:08
[2019-03-26 11:00] VITALS: BP 140/62
[2019-03-26] MEDS ORDERED: INSULIN LISPRO 300 UNITS/3 ML INSULN.PEN. SQ SCH (11:30)
--- NOTE | 2019-03-26 12:15 | PDOC ---
Renal-Progress Notes Subjective Notes Notes BETTER History of Present Illness Hx of present illness IMPROVED Vitals Vitals Vital Signs Date Time Temp Pulse Resp B/P (MAP) Pulse Ox O2 Delivery O2 Flow Rate FiO2 03/26/19 11:00 97.7 67 20 140/62 (88) 99 Nasal Cannula 2.0 97.7 Weight Weight [ ] I.O. Intake and Output Intake and Output 03/26/19 07:00 Intake Total 1180 ml Balance 1180 ml Intake Oral 1180 ml Labs Labs Laboratory Tests Test 03/25/19 16:42 03/25/19 20:39 03/26/19 07:40 03/26/19 11:51 Glucose (Fingerstick) 263 mg/dL (70-99) 339 mg/dL (70-99) 231 mg/dL (70-99) 298 mg/dL (70-99) Review of Systems Constitutional: yes: alert, oriented Ears/Nose/Throat: Yes: no symptom reported Eyes: Yes: no symptom reported Pulmonary: Yes no symptom reported Cardiovascular: Yes no symptom reported Gastrointestional: Yes: no symptom reported Musculoskeletal: Yes: muscle stiffness Skin: Yes no symptom reported Psychiatric/Neurological: Yes: headache Physical Exam General Appearance: no apparent distress Skin: warm Respiratory: decreased breath sounds Abdomen: soft Genitourinary: bladder flat Extremities: pulses present Neurology: alert, follow commands Musculoskeletal: Other Assessment Assessment IMP ESRD DM II ANEMIA HEADACHES S/P TEMP ARTERY BX MORBID OBESITY PLAN NEURO EVAL HD TOMORROW ES WILL FOLLOW MEJIA RAMOS MD March 26, 2019 12:15
[2019-03-26] MEDS: HYDROcodone/APAP 5/325MG 1 TAB TABLET PO PRN ×2 (14:18→21:44)
--- NOTE | 2019-03-26 14:39 | PDOC ---
PROGRESS NOTES Assessment Problems Medical Problems: (1) ESRD (end stage renal disease) Status: Acute (2) Tremulousness Status: Acute (3) UTI (urinary tract infection) Status: Acute Metabolic encephalopathy, renal failure Headaches, some headache earlier, note response to steroids is nonspecific. Elevated ESR, now with right temporal artery tenderness, temporal artery biopsy pending. Myoclonus, resolved, negative EEG 03/21, which does show evidence of encephalopathy, though Prior right middle cerebral artery stroke. History of epilepsy, EEG 03/21 negative for epileptic activity Episode of PSVT and apnea 03/21 night, cardiology following Plan Await right temporal artery biopsy results, hopefully they will be back tomorrow, plan to discontinue steroids if the biopsy is negative. Steroids Monitoring her sugars with the steroids Continue levetiracetam Migraine cocktail, ketorolac, diphenhydramine, prochlorperazine, PRN, has not used (IV out) Hold on lumbar puncture. Subjective Headache spiked to 8/10 earlier, doing fine now Objective Vital Signs Date Time Temp Pulse Resp B/P (MAP) Pulse Ox O2 Delivery O2 Flow Rate FiO2 03/26/19 14:18 18 Nasal Cannula 2.0 03/26/19 14:18 67 140/62 03/26/19 11:00 97.7 99 97.7 Intake and Output 03/26/19 07:00 Intake Total 1180 ml Balance 1180 ml Intake Oral 1180 ml PHYSICAL EXAM Alert, oriented to time, place and person. PERRL. EOMI. CN: Spastic dysarthria, left central facial weakness Muscle tone: increased on left. Muscle strength: 2/5 on left DTR: 2+ Plantar reflex: flexor Gait: not examined in bed. Sensory exam: no abnormal findings. No cerebellar signs elicited. Bandage over right temporal artery, can't assess tenderness Review of Relevant I have reviewed the following items gabbi (where applicable) has been applied. Labs Laboratory Tests Test 03/24/19 16:02 03/24/19 19:57 03/25/19 07:45 03/25/19 12:05 Glucose (Fingerstick) 124 mg/dL (70-99) 223 mg/dL (70-99) 334 mg/dL (70-99) 276 mg/dL (70-99) Test 03/25/19 16:42 03/25/19 20:39 03/26/19 07:40 03/26/19 11:51 Glucose (Fingerstick) 263 mg/dL (70-99) 339 mg/dL (70-99) 231 mg/dL (70-99) 298 mg/dL (70-99) Laboratory Tests Test 03/25/19 16:42 03/25/19 20:39 03/26/19 07:40 03/26/19 11:51 Glucose (Fingerstick) 263 mg/dL (70-99) 339 mg/dL (70-99) 231 mg/dL (70-99) 298 mg/dL (70-99) Medications Current Medications Hydralazine HCl (Apresoline Inj) 20 mg 1X ONCE IVP Last administered on 03/20/19at 07:54; Start 03/20/19 at 07:30; Stop 03/20/19 at 07:31; Status DC Lorazepam (Ativan) 0.5 mg 1X ONCE IV Last administered on 03/20/19at 07:59; Start 03/20/19 at 08:00; Stop 03/20/19 at 08:01; Status DC Ondansetron HCl (Zofran) 4 mg PRN Q8HRS PRN IV NAUSEA/VOMITING; Start 03/20/19 at 08:15; Stop 03/21/19 at 08:14; Status DC Insulin Human Lispro (HumaLOG) 0-5 UNITS TIDWMEALS SQ Last administered on 03/26/19at 12:35; Start 03/20/19 at 12:00 Dextrose (Dextrose 50%-Water Syringe) 12.5 gm PRN Q15MIN PRN IV SEE COMMENTS; Start 03/20/19 at 08:15 Ceftriaxone Sodium (Rocephin) 1 gm Q24H IVP Last administered on 03/21/19at 13:53; Start 03/20/19 at 11:00; Stop 03/21/19 at 14:00; Status DC Allopurinol (Zyloprim) 100 mg DAILY PO Last administered on 03/26/19at 08:50; Start 03/20/19 at 11:00 Alprazolam (Xanax) 0.25 mg PRN BID PRN PO ANXIETY / AGITATION Last administered on 03/21/19at 20:49; Start 03/20/19 at 10:15 Cinacalcet (Sensipar) 30 mg DAILY PO Last administered on 03/26/19 08:48; Start 03/20/19 at 11:00 Citalopram Hydrobromide (CeleXA) 10 mg DAILY PO Last administered on 03/26/19 08:50; Start 03/20/19 at 11:00 Clonidine HCl (Catapres) 0.1 mg TID PO Last administered on 03/26/19 14:18; Start 03/20/19 at 14:00 Clopidogrel Bisulfate (Plavix) 75 mg DAILY PO Last administered on 03/26/19 08:50; Start 03/20/19 at 11:00 Cyclobenzaprine HCl (Flexeril) 10 mg BID PO Last administered on 03/26/19 08:49; Start 03/20/19 at 11:00 Gabapentin (Neurontin) 300 mg HS PO Last administered on 03/25/19 21:21; Start 03/20/19 at 21:00 Acetaminophen/ Hydrocodone Bitart (Lortab 5/325) 1 tab PRN Q6HRS PRN PO MODERATE PAIN Last administered on 03/26/19 14:18; Start 03/20/19 at 10:15 Levetiracetam (Keppra) 500 mg BID PO ; Start 03/20/19 at 11:00; Stop 03/20/19 at 11:00; Status DC Metoclopramide HCl (Reglan) 2.5 mg QIDACHS PO Last administered on 03/26/19 12:28; Start 03/20/19 at 11:30 Non-Formulary Medication (Levalbuterol Tartrate (Xopenex Hfa)) 2 puff QID IH ; Start 03/20/19 at 13:00; Status UNV Non-Formulary Medication (Naloxegol Oxalate (Movantik)) 25 mg DAILY PO ; Start 03/21/19 at 09:00; Stop 03/22/19 at 08:35; Status DC Sennosides (Senna) 8.6 mg BID PO Last administered on 03/26/19 08:50; Start 03/20/19 at 10:30 Simvastatin (Zocor) 40 mg QHS PO Last administered on 03/25/19 21:22; Start 03/20/19 at 21:00 Vitamin B Complex/ Vitamin C (Makayla-Britton) 1 tab DAILY PO Last administered on 03/26/19at 08:49; Start 03/20/19 at 11:00 Calcium Acetate (Phoslo) 2,001 mg TIDWMEALS PO Last administered on 03/26/19at 1 2:28; Start 03/20/19 at 12:00 Levetiracetam (Keppra) 1,000 mg BID PO Last administered on 03/26/19at 08:50; Start 03/20/19 at 11:00 Albuterol Sulfate (Ventolin Neb Soln) 2.5 mg RTQID NEB Last administered on 03/26/19at 08:00; Start 03/20/19 at 12:00 Sodium Chloride 1,000 ml @ 1,000 mls/hr Q1H PRN IV hypotension; Start 03/20/19 at 13:30; Stop 03/20/19 at 19:29; Status DC Sodium Chloride 1,000 ml @ 400 mls/hr Q2H30M PRN IV PATENCY; Start 03/20/19 at 13:30; Stop 03/21/19 at 01:29; Status DC Info (PHARMACY MONITORING -- do not chart) 1 each PRN DAILY PRN MC SEE COMMENTS; Start 03/20/19 at 14:15; Status UNV Info (PHARMACY MONITORING -- do not chart) 1 each PRN DAILY PRN MC SEE COMMENTS; Start 03/20/19 at 14:15; Status Cancel Ketorolac Tromethamine (Toradol 15mg Vial) 15 mg PRN Q6HRS PRN IV PAIN; Start 03/21/19 at 09:00; Stop 03/26/19 at 08:59; Status DC Diphenhydramine HCl (Benadryl) 25 mg PRN Q6HRS PRN IVP ITCHING; Start 03/21/19 at 09:00 Prochlorperazine Edisylate (Compazine) 10 mg PRN Q6HRS PRN IV NAUSEA/VOMITING; Start 03/21/19 at 09:00 Cephalexin HCl (Keflex) 500 mg BID PO ; Start 03/21/19 at 21:00; Stop 03/21/19 at 21:00; Status DC Lactobacillus Rhamnosus (Culturelle) 1 cap BID PO Last administered on 03/26/19at 08:50; Start 03/21/19 at 21:00 Cephalexin HCl (Keflex) 500 mg QHS PO Last administered on 03/25/19at 21:22; Start 03/21/19 at 21:00 Sodium Chloride 1,000 ml @ 1,000 mls/hr Q1H PRN IV hypotension; Start 03/22/19 at 08:24; Stop 03/22/19 at 14:23; Status DC Diphenhydramine HCl (Benadryl) 25 mg 1X PRN PRN IV ITCHING; Start 03/22/19 at 08:30; Stop 03/23/19 at 08:29; Status DC Diphenhydramine HCl (Benadryl) 25 mg 1X PRN PRN IV ITCHING; Start 03/22/19 at 08:30; Stop 03/23/19 at 08:29; Status DC Sodium Chloride 1,000 ml @ 400 mls/hr Q2H30M PRN IV PATENCY; Start 03/22/19 at 08:24; Stop 03/22/19 at 20:23; Status DC Info (PHARMACY MONITORING -- do not chart) 1 each PRN DAILY PRN MC SEE COMMENTS; Start 03/22/19 at 08:30; Status UNV Info (PHARMACY MONITORING -- do not chart) 1 each PRN DAILY PRN MC SEE COMM ENTS; Start 03/22/19 at 08:30; Stop 03/24/19 at 15:22; Status DC Metoprolol Succinate (Toprol Xl) 25 mg QHS PO Last administered on 03/25/19at 21:21; Start 03/22/19 at 21:00 Fentanyl Citrate (Fentanyl 2ml Vial) 25 mcg PRN Q5MIN PRN IV MILD PAIN; Start 03/24/19 at 07:00; Stop 03/25/19 at 06:59; Status DC Fentanyl Citrate (Fentanyl 2ml Vial) 50 mcg PRN Q5MIN PRN IV MODERATE TO SEVERE PAIN Last administered on 03/24/19at 21:53; Start 03/24/19 at 07:00; Stop 03/25/19 at 06:59; Status DC Morphine Sulfate (Morphine Sulfate) 1 mg PRN Q10MIN PRN IV SEVERE PAIN; Start 03/24/19 at 07:00; Stop 03/25/19 at 06:59; Status DC Ringer's Solution 1,000 ml @ 30 mls/hr Q24H IV Last administered on 03/24/19at 07:00; Start 03/24/19 at 07:00; Stop 03/24/19 at 18:59; Status DC Lidocaine HCl (Xylocaine-Mpf 1% 2ml Vial) 2 ml PRN 1X PRN ID PRIOR TO IV START; Start 03/24/19 at 07:00; Stop 03/25/19 at 06:59; Status DC Hydromorphone HCl (Dilaudid) 0.5 mg PRN Q10MIN PRN IV SEV PAIN, Second choice; Start 03/24/19 at 07:00; Stop 03/25/19 at 06:59; Status DC Sodium Chloride 1,000 ml @ 1,000 mls/hr Q1H PRN IV hypotension; Start 03/24/19 at 07:40; Stop 03/24/19 at 13:39; Status DC Diphenhydramine HCl (Benadryl) 25 mg 1X PRN PRN IV ITCHING; Start 03/24/19 at 07:45; Stop 03/25/19 at 07:44; Status DC Diphenhydramine HCl (Benadryl) 25 mg 1X PRN PRN IV ITCHING; Start 03/24/19 at 07:45; Stop 03/25/19 at 07:44; Status DC Sodium Chloride 1,000 ml @ 400 mls/hr Q2H30M PRN IV PATENCY; Start 03/24/19 at 07:40; Stop 03/24/19 at 19:39; Status DC Info (PHARMACY MONITORING -- do not chart) 1 each PRN DAILY PRN MC SEE COMMENTS; Start 03/24/19 at 07:45 Methylprednisolone Sodium Succinate (SOLU-Medrol 125MG VIAL) 125 mg 1X ONCE IV Last administered on 03/24/19at 16:23; Start 03/24/19 at 16:00; Stop 03/24/19 at 16:01; Status DC Prednisone (Prednisone) 50 mg DAILY PO Last administered on 03/26/19at 08:50; Start 03/25/19 at 09:00 Sevoflurane (Ultane) 30 ml STK-MED ONCE IH ; Start 03/24/19 at 11:36; Stop 03/24/19 at 11:37; Status DC Fentanyl Citrate (Fentanyl 2ml Vial) 100 mcg STK-MED ONCE .ROUTE ; Start 03/24/19 at 11:36; Stop 03/24/19 at 11:37; Status DC Midazolam HCl (Versed) 2 mg STK-MED ONCE .ROUTE ; Start 03/24/19 at 11:36; Stop 03/24/19 at 11:37; Status DC Propofol 20 ml @ As Directed STK-MED ONCE IV ; Start 03/24/19 at 11:36; Stop 03/24/19 at 11:37; Status DC Lidocaine HCl (Lidocaine Pf 2% Vial) 5 ml STK-MED ONCE .ROUTE ; Start 03/24/19 at 11:36; Stop 03/24/19 at 11:37; Status DC Dexamethasone Sodium Phosphate (Decadron) 4 mg STK-MED ONCE .ROUTE ; Start 03/24/19 at 11:36; Stop 03/24/19 at 11:37; Status DC Ondansetron HCl (Zofran) 4 mg STK-MED ONCE .ROUTE ; Start 03/24/19 at 11:36; Stop 03/24/19 at 11:37; Status DC Bupivacaine HCl/ Epinephrine Bitart (Sensorcain-Mpf Epi 0.5%-1:[id number]) 30 ml STK-MED ONCE .ROUTE Last administered on 03/24/19at 12:55; Start 03/24/19 at 10:53; Stop 03/24/19 at 11:54; Status DC Phenylephrine HCl (PHENYLEPHRINE in 0.9% NACL PF) 1 mg STK-MED ONCE IV ; Start 03/24/19 at 12:33; Stop 03/24/19 at 12:34; Status DC Sodium Chloride (Normal Saline Flush) 3 ml QSHIFT PRN IV AFTER MEDS AND BLOOD DRAWS; Start 03/24/19 at 13:15 Throat Lozenges (Cepacol Sore Throat Lozenge) 1 chris PRN Q2HRS PRN PO SORE THROAT Last administered on 03/24/19at 21:57; Start 03/24/19 at 20:00 Insulin Glargine (Lantus) 15 units DAILY08 SQ Last administered on 03/26/19at 09:02; Start 03/25/19 at 09:45 Insulin Human Lispro (HumaLOG) 6 units 1X ONCE SQ Last administered on at 21:27; Start 03/25/19 at 21:00; Stop 03/25/19 at 21:01; Status DC Insulin Human Lispro (HumaLOG) 5 units TIDAC SQ Last administered on 03/26/19at 12:33; Start 03/26/19 at 07:30 Insulin Human Lispro (HumaLOG) 5 units TIDAC SQ ; Start 03/26/19 at 11:30; St atus UNV Active Scripts Active Prednisone (Prednisone) 10 Mg Tablet 10 Mg PO UD Take 3 tablets by mouth twice a day for 3 days, then take 2 tablets by mouth twice a day for 3 days, then take 1 tablet by mouth twice a day for 3 days, then take 1 tablet by mouth daily x 3 days, then stop. Novolog Flexpen (Insulin Aspart) 100 Unit/1 Ml Insuln.pen 5 Unit SQ TIDAC 30 Days Lantus Solostar (Insulin Glargine,Hum.rec.anlog) 100 Unit/1 Ml Insuln.pen 15 Unit SQ DAILY08 30 Days Keflex (Cephalexin) 500 Mg Capsule 1 Cap PO BID Metoprolol Succinate ( Xl ) (Metoprolol Succinate) 25 Mg Tab.er.24h 25 Mg PO QHS 30 Days Reported [phoslo] 2,001 Mg PO TID Movantik (Naloxegol Oxalate) 25 Mg Tablet 25 Mg PO DAILY Xopenex Hfa (Levalbuterol Tartrate) 15 Gm Hfa.aer.ad 2 Puff IH QID Keppra (Levetiracetam) 500 Mg Tablet 1 Tab PO BID Vol-Care Rx Tablet (Vit B Cmplx 3/Fa/Vit C/Biotin) 1 Each Tablet 1 Each PO DAILY Clopidogrel (Clopidogrel Bisulfate) 75 Mg Tablet 1 Tab PO DAILY Alprazolam 0.25 Mg Tablet 1 Tab PO PRN BID PRN Celexa (Citalopram Hydrobromide) 10 Mg Tablet 1 Tab PO DAILY Allopurinol 100 Mg Tablet 1 Tab PO DAILY Sensipar (Cinacalcet Hcl) 30 Mg Tablet 1 Tab PO DAILY Simvastatin 40 Mg Tablet 1 Tab PO QHS Gabapentin (Gabapentin) 300 Mg Capsule 1 Cap PO HS Senna (Sennosides) 8.6 Mg Capsule 8.6 Mg PO BID Cyclobenzaprine Hcl 10 Mg Tablet 1 Tab PO BID Reglan (Metoclopramide Hcl) 10 Mg Tablet 5 Mg PO QIDACHS Clonidine Hcl 0.1 Mg Tablet 1 Tab PO TID Hydrocodone-Apap 5-325 (Hydrocodone Bit/Acetaminophen) 1 Each Tablet 1 Tab PO PRN Q6HRS PRN Vitals/I & O Vital Sign - Last 24 Hours 03/25/19 03/25/19 03/25/19 03/25/19 14:39 15:00 16:55 19:15 Temp 98.4 98.7 98.4 98.7 Pulse 70 65 63 Resp 20 16 B/P (MAP) 118/50 130/60 (83) 123/51 (75) Pulse Ox 98 98 O2 Delivery Nasal Cannula Nasal Cannula Nasal Cannula O2 Flow Rate 2.0 2.0 2.0 03/25/19 03/25/19 03/25/19 03/25/19 21:21 21:21 21:21 21:28 Pulse 63 63 B/P (MAP) 123/51 123/51 Pulse Ox 98 O2 Delivery Nasal Cannula Nasal Cannula O2 Flow Rate 2.0 2.0 03/25/19 03/25/19 03/26/19 03/26/19 23:03 23:15 03:15 07:00 Temp 98.0 97.8 97.9 98.0 97.8 97.9 Pulse 63 62 63 Resp 18 18 20 B/P (MAP) 125/50 (75) 140/59 (86) 137/64 (88) Pulse Ox 100 100 100 O2 Delivery Nasal Cannula Nasal Cannula Nasal Cannula Nasal Cannula O2 Flow Rate 2.0 2.0 2.0 2.0 03/26/19 03/26/19 03/26/19 03/26/19 08:51 09:44 11:00 14:18 Temp 97.7 97.7 Pulse 63 67 67 Resp 20 B/P (MAP) 137/64 140/62 (88) 140/62 Pulse Ox 99 99 O2 Delivery Nasal Cannula Nasal Cannula O2 Flow Rate 2.0 2.0 03/26/19 14:18 Resp 18 O2 Delivery Nasal Cannula O2 Flow Rate 2.0 Intake and Output 03/25/19 03/25/19 03/26/19 15:00 23:00 07:00 Intake Total 480 ml 500 ml 200 ml Balance 480 ml 500 ml 200 ml PATRICIA SILVEIRA MD March 26, 2019 14:39
[2019-03-26 14:41] VITALS: BP 160/71
[2019-03-26 19:15] VITALS: BP 144/70
[2019-03-26] MEDS: CEPHALEXIN 250 MG CAPSULE. PO SCH (21:43)
[2019-03-26] MEDS: SIMVASTATIN 40 MG TABLET. PO SCH (21:44)
[2019-03-26] MEDS: METOPROLOL SUCC 24HR ER 25 MG TAB.ER.24H. PO SCH (21:44)
[2019-03-26] MEDS: GABAPENTIN 300 MG CAPSULE. PO SCH (21:48)
[2019-03-26 23:50] VITALS: BP 152/76
[2019-03-27 03:55] VITALS: BP 149/70
[2019-03-27 05:43] LABS: CALCIUM 8.8 mg/dL (8.5-10.1); CREATININE 6.4 mg/dL (0.6-1.0); GFR 7.9; POTASSIUM 5.5 mmol/L (3.5-5.1)
[2019-03-27 07:10] VITALS: BP 143/69
[2019-03-27] MEDS: METOCLOPRAMIDE 5 MG TABLET. PO SCH ×2 (07:30→14:15)
[2019-03-27] MEDS: INSULIN LISPRO 300 UNITS/3 ML INSULN.PEN. SQ SCH ×3 (07:30→12:00)
[2019-03-27] MEDS: CALCIUM ACETATE 667 MG CAPSULE PO SCH ×2 (08:00→14:15)
[2019-03-27] MEDS: ALBUTEROL SULFATE 2.5 MG/3 ML NEBU. NEB SCH ×2 (08:27→12:00)
[2019-03-27] MEDS ORDERED: IV NORMAL SALINE 1000ML BAG 1,000 ML IV PRN ×2 (08:42)
[2019-03-27] MEDS ORDERED: DIALYSIS PATIENT. MC PRN (08:45)
[2019-03-27] MEDS ORDERED: diphenhydrAMINE 50 MG/ML VIAL IV PRN ×2 (08:45)
[2019-03-27] MEDS: SENNOSIDES 8.6 MG TABLET PO SCH (09:00)
[2019-03-27] MEDS: cloNIDine HCL 0.1 MG TABLET PO SCH ×2 (09:00→14:16)
[2019-03-27] MEDS: LACTOBACILLUS RHAMNOSUS GG 1 CAPSULE. PO SCH (09:00)
[2019-03-27] MEDS ORDERED: INSU100I17 SQ (09:41)
--- NOTE | 2019-03-27 09:54 | PDOC3 ---
IM DISCHARGE SUMMARY Date of Admission Date of Admission Date of Admission: Mar 20, 2019 at 07:57 Date of Discharge Date of Discharge March, Primary Diagnosis Primary Diagnosis 1. Severe headache. 2. Tremor-like activity, right upper and lower extremity. 3. History of previous stroke with left hemiparesis. 4. On Keppra for seizures. 5. End-stage renal disease, on dialysis. 6. Urinary tract infection. 7. Morbidly obese. 8. Diabetes mellitus type 2 not controlled. Consults Consults Paddy Nichole MD, Dr. Pathak Labs Labs Laboratory Tests Test 03/24/19 13:16 03/24/19 16:02 03/24/19 19:57 03/25/19 07:45 Glucose (Fingerstick) 103 mg/dL (70-99) 124 mg/dL (70-99) 223 mg/dL (70-99) 334 mg/dL (70-99) Test 03/25/19 12:05 03/25/19 16:42 03/25/19 20:39 03/26/19 07:40 Glucose (Fingerstick) 276 mg/dL (70-99) 263 mg/dL (70-99) 339 mg/dL (70-99) 231 mg/dL (70-99) Test 03/26/19 11:51 03/26/19 16:55 03/26/19 20:42 03/27/19 04:10 Glucose (Fingerstick) 298 mg/dL (70-99) 293 mg/dL (70-99) 310 mg/dL (70-99) Sodium Level 134 mmol/L (136-145) Potassium Level 5.5 mmol/L (3.5-5.1) Chloride Level 96 mmol/L (98-107) Carbon Dioxide Level 30 mmol/L (21-32) Anion Gap 8 (6-14) Blood Urea Nitrogen 56 mg/dL (7-20) Creatinine 6.4 mg/dL (0.6-1.0) Estimated GFR (Cockcroft-Gault) 7.9 Glucose Level 290 mg/dL (70-99) Calcium Level 8.8 mg/dL (8.5-10.1) Test 03/27/19 07:19 Glucose (Fingerstick) 250 mg/dL (70-99) Brief hospital course Brief hospital course The patient is a 68-year-old female. The patient has a known history of previous stroke, left hemiparesis. She also has history of renal failure, on hemodialysis; on Keppra for seizures, has been pretty good control. The patient's family noticed that she was having headache on Wednesday. She did not go to dialysis. She was having shakiness in the right upper and lower extremity, was brought to the hospital today. CT head showed old stroke, no new stroke. Urine showed infection, was started on Rocephin, 1 antibiotic was given, was admitted to the hospital to get dialyzed and neurological evaluation. For more details regarding the past history, family history, social history, surgical history and other details, please refer to History and Physical. During the stay in the hospital patient had severe headaches. Patient was seen by Dr. Nichole for neurology evaluation and management. She had guaiac-pos itive initially that improved. She was also placed on the treatment for migraines. Because of the elevated sedimentation rate and right-sided headaches the patient had the biopsy. She was started on steroids empirically. Because of the high-dose of steroids her blood sugars went up. Patient is a diabetic and takes 15 units of Lantus and 5 units of NovoLog 3 times a day at home. With the insulin and I will increase the Humalog which is equivalent to NovoLog here to 8 units subcutaneous 3 times a day. Temporal artery biopsy hopefully will be back today and I have advised the patient that if she does not go home on steroids then she can go back to her usual dose of prednisone and monitor blood sugars closely. Currently she is on prednisone 50 mg by mouth daily. Her headaches are now improving. Her EEG on March 21 was negative for epilepsy but did show some encephalopathy. End-stage renal disease- patient received hemodialysis and was seen by Dr. Egan for nephrology evaluation and management. During the stay in the hospital patient also had an episode of her paroxysmal supraventricular tachycardia as well as apnea and was seen by the air chipper. Patient will receive hemodialysis today and be discharged later today and the dose of insulin will depend whether patient will take prednisone or not at home. Condition at the time of discharge improving. See Dr. Lobo in 3 days on as she has dialysis on Wednesday. Medications Medications reviewed and reconciled for discharge. Allergy Allergies Coded Allergies Type Severity Reaction Last Updated Verified No Known Drug Allergies 02/07/19 No Follow up in 3 days. DISPOSITION: Home Comments Discharge Management - 35 minutes. For other details please refer to discharge instructions MIRIAM RODRIGUEZ MD March 27, 2019 09:54
--- NOTE | 2019-03-27 10:59 | PDOC ---
Renal-Progress Notes Subjective Notes Notes FEELING BETTER History of Present Illness Hx of present illness STABLE Vitals Vitals Vital Signs Date Time Temp Pulse Resp B/P (MAP) Pulse Ox O2 Delivery O2 Flow Rate FiO2 03/27/19 09:00 72 143/69 03/27/19 08:27 100 Nasal Cannula 2.0 03/27/19 07:10 97.4 20 97.4 Weight Weight [ ] I.O. Intake and Output Intake and Output 03/27/19 06:59 Intake Total 1940 ml Balance 1940 ml Intake Oral 1940 ml Labs Labs Laboratory Tests Test 03/26/19 11:51 03/26/19 16:55 03/26/19 20:42 03/27/19 04:10 Glucose (Fingerstick) 298 mg/dL (70-99) 293 mg/dL (70-99) 310 mg/dL (70-99) Sodium Level 134 mmol/L (136-145) Potassium Level 5.5 mmol/L (3.5-5.1) Chloride Level 96 mmol/L (98-107) Carbon Dioxide Level 30 mmol/L (21-32) Anion Gap 8 (6-14) Blood Urea Nitrogen 56 mg/dL (7-20) Creatinine 6.4 mg/dL (0.6-1.0) Estimated GFR (Cockcroft-Gault) 7.9 Glucose Level 290 mg/dL (70-99) Calcium Level 8.8 mg/dL (8.5-10.1) Test 03/27/19 07:19 Glucose (Fingerstick) 250 mg/dL (70-99) Review of Systems Constitutional: yes: alert, oriented Ears/Nose/Throat: Yes: no symptom reported Eyes: Yes: no symptom reported Pulmonary: Yes no symptom reported Cardiovascular: Yes no symptom reported Gastrointestional: Yes: no symptom reported Musculoskeletal: Yes: muscle stiffness Skin: Yes no symptom reported Psychiatric/Neurological: Yes: headache Physical Exam General Appearance: no apparent distress Skin: warm Respiratory: decreased breath sounds Abdomen: soft Genitourinary: bladder flat Extremities: pulses present Neurology: alert, follow commands Musculoskeletal: Other Assessment Assessment IMP ESRD DM II ANEMIA HEADACHES S/P TEMP ARTERY BX MORBID OBESITY PLAN NEURO EVAL HD TODAY UF TO MEJIA SENIOR MD March 27, 2019 10:59
[2019-03-27] MEDS ORDERED: INSULIN LISPRO 300 UNITS/3 ML INSULN.PEN. SQ SCH (11:30)
--- NOTE | 2019-03-27 12:52 | NUR ---
SW arranged transportation via [facility] at 1430. RN notified.
[2019-03-27] MEDS: CINACALCET HCL 30 MG TABLET PO SCH (14:14)
[2019-03-27] MEDS: ALLOPURINOL 100 MG TABLET. PO SCH (14:15)
[2019-03-27] MEDS: levETIRAcetam 500 MG TABLET PO SCH (14:15)
[2019-03-27] MEDS: CLOPIDOGREL BISULFATE 75 MG TABLET PO SCH (14:15)
[2019-03-27] MEDS: predniSONE 10 MG TABLET PO SCH (14:15)
[2019-03-27] MEDS: FOLIC/VIT B COMP W-C (RENAL) TABLET. PO SCH (14:15)
[2019-03-27] MEDS: CYCLOBENZAPRINE 10 MG TABLET. PO SCH (14:15)
[2019-03-27 14:16] VITALS: BP 136/65
[2019-03-27] MEDS: CITALOPRAM 10 MG TABLET. PO SCH (14:16)
[2019-03-27] MEDS: INSULIN GLARGINE 300 UNITS/3 ML INSULN.PEN. SQ SCH (14:27)
--- NOTE | 2019-03-27 14:46 | NUR ---
Discharge Note: MARKUS HE [address] [place] [address] Discharge instructions and discharge home medications reviewed with Patient and a copy given. All questions have been answered and understanding verbalized. Discontinued lines and drains: Peripheral IV intact. Patient discharged to Home w/services with Ambulance Personnel via Stretcher. Addendum: 03/27/19 at 1449 by AMILCAR PARR RN Notified patient daughter, Amando Adam at , that patient was discharging via EMS.
--- NOTE | 2019-03-27 14:47 | PDOC ---
PROGRESS NOTES Assessment Problems Medical Problems: (1) ESRD (end stage renal disease) Status: Acute (2) Tremulousness Status: Acute (3) UTI (urinary tract infection) Status: Acute Metabolic encephalopathy, renal failure Headaches, note response to steroids is nonspecific. Elevated ESR, now with right temporal artery tenderness, temporal artery biopsy results pending Myoclonus, resolved, negative EEG 03/21, which does show evidence of encephalopathy, though Prior right middle cerebral artery stroke. History of epilepsy, EEG 03/21 negative for epileptic activity Episode of PSVT and apnea 03/21 night, cardiology following Plan Await right temporal artery biopsy results I will call patient tomorrow when results are in and plan to discontinue steroids if the biopsy is negative. Steroids Monitoring her sugars with the steroids Continue levetiracetam Migraine cocktail, ketorolac, diphenhydramine, prochlorperazine, PRN, has not used (IV out) Hold on lumbar puncture. Okay for discharge Subjective No headache now Objective Vital Signs Date Time Temp Pulse Resp B/P (MAP) Pulse Ox O2 Delivery O2 Flow Rate FiO2 03/27/19 14:16 71 136/65 03/27/19 08:27 100 Nasal Cannula 2.0 03/27/19 07:10 97.4 20 97.4 Intake and Output 03/27/19 07:00 Intake Total 1940 ml Balance 1940 ml Intake Oral 1940 ml PHYSICAL EXAM Alert, oriented to time, place and person. PERRL. EOMI. CN: Spastic dysarthria, left central facial weakness Muscle tone: increased on left. Muscle strength: 2/5 on left DTR: 2+ Plantar reflex: flexor Gait: not examined in bed. Sensory exam: no abnormal findings. No cerebellar signs elicited. Bandage over right temporal artery, can't assess tenderness Review of Relevant I have reviewed the following items gabbi (where applicable) has been applied. Labs Laboratory Tests Test 03/25/19 16:42 03/25/19 20:39 03/26/19 07:40 03/26/19 11:51 Glucose (Fingerstick) 263 mg/dL (70-99) 339 mg/dL (70-99) 231 mg/dL (70-99) 298 mg/dL (70-99) Test 03/26/19 16:55 03/26/19 20:42 03/27/19 04:10 03/27/19 07:19 Glucose (Fingerstick) 293 mg/dL (70-99) 310 mg/dL (70-99) 250 mg/dL (70-99) Sodium Level 134 mmol/L (136-145) Potassium Level 5.5 mmol/L (3.5-5.1) Chloride Level 96 mmol/L (98-107) Carbon Dioxide Level 30 mmol/L (21-32) Anion Gap 8 (6-14) Blood Urea Nitrogen 56 mg/dL (7-20) Creatinine 6.4 mg/dL (0.6-1.0) Estimated GFR (Cockcroft-Gault) 7.9 Glucose Level 290 mg/dL (70-99) Calcium Level 8.8 mg/dL (8.5-10.1) Test 03/27/19 14:14 Glucose (Fingerstick) 121 mg/dL (70-99) Laboratory Tests Test 03/26/19 16:55 03/26/19 20:42 03/27/19 04:10 03/27/19 07:19 Glucose (Fingerstick) 293 mg/dL (70-99) 310 mg/dL (70-99) 250 mg/dL (70-99) Sodium Level 134 mmol/L (136-145) Potassium Level 5.5 mmol/L (3.5-5.1) Chloride Level 96 mmol/L (98-107) Carbon Dioxide Level 30 mmol/L (21-32) Anion Gap 8 (6-14) Blood Urea Nitrogen 56 mg/dL (7-20) Creatinine 6.4 mg/dL (0.6-1.0) Estimated GFR (Cockcroft-Gault) 7.9 Glucose Level 290 mg/dL (70-99) Calcium Level 8.8 mg/dL (8.5-10.1) Test 03/27/19 14:14 Glucose (Fingerstick) 121 mg/dL (70-99) Medications Current Medications Hydralazine HCl (Apresoline Inj) 20 mg 1X ONCE IVP Last administered on 03/20/19at 07:54; Start 03/20/19 at 07:30; Stop 03/20/19 at 07:31; Status DC Lorazepam (Ativan) 0.5 mg 1X ONCE IV Last administered on 03/20/19at 07:59; Start 03/20/19 at 08:00; Stop 03/20/19 at 08:01; Status DC Ondansetron HCl (Zofran) 4 mg PRN Q8HRS PRN IV NAUSEA/VOMITING; Start 03/20/19 at 08:15; Stop 03/21/19 at 08:14; Status DC Insulin Human Lispro (HumaLOG) 0-5 UNITS TIDWMEALS SQ Last administered on 03/26/19 17:39; Start 03/20/19 at 12:00 Dextrose (Dextrose 50%-Water Syringe) 12.5 gm PRN Q15MIN PRN IV SEE COMMENTS; Start 03/20/19 at 08:15 Ceftriaxone Sodium (Rocephin) 1 gm Q24H IVP Last administered on 03/21/19 13:53; Start 03/20/19 at 11:00; Stop 03/21/19 at 14:00; Status DC Allopurinol (Zyloprim) 100 mg DAILY PO Last administered on 03/27/19 14:15; Start 03/20/19 at 11:00 Alprazolam (Xanax) 0.25 mg PRN BID PRN PO ANXIETY / AGITATION Last administered on 03/21/19 20:49; Start 03/20/19 at 10:15 Cinacalcet (Sensipar) 30 mg DAILY PO Last administered on 03/27/19 14:14; Start 03/20/19 at 11:00 Citalopram Hydrobromide (CeleXA) 10 mg DAILY PO Last administered on 03/27/19 14:16; Start 03/20/19 at 11:00 Clonidine HCl (Catapres) 0.1 mg TID PO Last administered on 03/27/19 14:16; Start 03/20/19 at 14:00 Clopidogrel Bisulfate (Plavix) 75 mg DAILY PO Last administered on 03/27/19 14:15; Start 03/20/19 at 11:00 Cyclobenzaprine HCl (Flexeril) 10 mg BID PO Last administered on 03/27/19 14:15; Start 03/20/19 at 11:00 Gabapentin (Neurontin) 300 mg HS PO Last administered on 03/26/19 21:48; Start 03/20/19 at 21:00 Acetaminophen/ Hydrocodone Bitart (Lortab 5/325) 1 tab PRN Q6HRS PRN PO MODERATE PAIN Last administered on 03/26/19 21:44; Start 03/20/19 at 10:15 Levetiracetam (Keppra) 500 mg BID PO ; Start 03/20/19 at 11:00; Stop 03/20/19 at 11:00; Status DC Metoclopramide HCl (Reglan) 2.5 mg QIDACHS PO Last administered on 03/27/19 14:15; Start 03/20/19 at 11:30 Non-Formulary Medication (Levalbuterol Tartrate (Xopenex Hfa)) 2 puff QID IH ; Start 03/20/19 at 13:00; Status UNV Non-Formulary Medication (Naloxegol Oxalate (Movantik)) 25 mg DAILY PO ; Start 03/21/19 at 09:00; Stop 03/22/19 at 08:35; Status DC Sennosides (Senna) 8.6 mg BID PO Last administered on 03/26/19 21:44; Start at 10:30 Simvastatin (Zocor) 40 mg QHS PO Last administered on 03/26/19 21:44; Start 03/20/19 at 21:00 Vitamin B Complex/ Vitamin C (Makayla-Britton) 1 tab DAILY PO Last administered on 03/27/19 14:15; Start 03/20/19 at 11:00 Calcium Acetate (Phoslo) 2,001 mg TIDWMEALS PO Last administered on 03/27/19 14:15; Start 03/20/19 at 12:00 Levetiracetam (Keppra) 1,000 mg BID PO Last administered on 03/27/19 14:15; Start 03/20/19 at 11:00 Albuterol Sulfate (Ventolin Neb Soln) 2.5 mg RTQID NEB Last administered on 03/27/19 08:27; Start 03/20/19 at 12:00 Sodium Chloride 1,000 ml @ 1,000 mls/hr Q1H PRN IV hypotension; Start 03/20/19 at 13:30; Stop 03/20/19 at 19:29; Status DC Sodium Chloride 1,000 ml @ 400 mls/hr Q2H30M PRN IV PATENCY; Start 03/20/19 at 13:30; Stop 03/21/19 at 01:29; Status DC Info (PHARMACY MONITORING -- do not chart) 1 each PRN DAILY PRN MC SEE COMMENTS; Start 03/20/19 at 14:15; Status UNV Info (PHARMACY MONITORING -- do not chart) 1 each PRN DAILY PRN MC SEE COMMENTS; Start 03/20/19 at 14:15; Status Cancel Ketorolac Tromethamine (Toradol 15mg Vial) 15 mg PRN Q6HRS PRN IV PAIN; Start 03/21/19 at 09:00; Stop 03/26/19 at 08:59; Status DC Diphenhydramine HCl (Benadryl) 25 mg PRN Q6HRS PRN IVP ITCHING; Start 03/21/19 at 09:00 Prochlorperazine Edisylate (Compazine) 10 mg PRN Q6HRS PRN IV NAUSEA/VOMITING; Start 03/21/19 at 09:00 Cephalexin HCl (Keflex) 500 mg BID PO ; Start 03/21/19 at 21:00; Stop 03/21/19 at 21:00; Status DC Lactobacillus Rhamnosus (Culturelle) 1 cap BID PO Last administered on 03/26/19at 21:44; Start 03/21/19 at 21:00 Cephalexin HCl (Keflex) 500 mg QHS PO Last administered on 03/26/19at 21:43; Start 03/21/19 at 21:00 Sodium Chloride 1,000 ml @ 1,000 mls/hr Q1H PRN IV hypotension; Start 03/22/19 at 08:24; Stop 03/22/19 at 14:23; Status DC Diphenhydramine HCl (Benadryl) 25 mg 1X PRN PRN IV ITCHING; Start 03/22/19 at 08:30; Stop 03/23/19 at 08:29; Status DC Diphenhydramine HCl (Benadryl) 25 mg 1X PRN PRN IV ITCHING; Start 03/22/19 at 08:30; Stop 03/23/19 at 08:29; Status DC Sodium Chloride 1,000 ml @ 400 mls/hr Q2H30M PRN IV PATENCY; Start 03/22/19 at 08:24; Stop 03/22/19 at 20:23; Status DC Info (PHARMACY MONITORING -- do not chart) 1 each PRN DAILY PRN MC SEE COMMENTS; Start 03/22/19 at 08:30; Status UNV Info (PHARMACY MONITORING -- do not chart) 1 each PRN DAILY PRN MC SEE COMMENTS; Start 03/22/19 at 08:30; Stop 03/24/19 at 15:22; Status DC Metoprolol Succinate (Toprol Xl) 25 mg QHS PO Last administered on 03/26/19at 21:44; Start 03/22/19 at 21:00 Fentanyl Citrate (Fentanyl 2ml Vial) 25 mcg PRN Q5MIN PRN IV MILD PAIN; Start 03/24/19 at 07:00; Stop 03/25/19 at 06:59; Status DC Fentanyl Citrate (Fentanyl 2ml Vial) 50 mcg PRN Q5MIN PRN IV MODERATE TO SEVERE PAIN Last administered on 03/24/19at 21:53; Start 03/24/19 at 07:00; Stop 03/25/19 at 06:59; Status DC Morphine Sulfate (Morphine Sulfate) 1 mg PRN Q10MIN PRN IV SEVERE PAIN; Start 03/24/19 at 07:00; Stop 03/25/19 at 06:59; Status DC Ringer's Solution 1,000 ml @ 30 mls/hr Q24H IV Last administered on 03/24/19at 07:00; Start 03/24/19 at 07:00; Stop 03/24/19 at 18:59; Status DC Lidocaine HCl (Xylocaine-Mpf 1% 2ml Vial) 2 ml PRN 1X PRN ID PRIOR TO IV START; Start 03/24/19 at 07:00; Stop 03/25/19 at 06:59; Status DC Hydromorphone HCl (Dilaudid) 0.5 mg PRN Q10MIN PRN IV SEV PAIN, Second choice; Start 03/24/19 at 07:00; Stop 03/25/19 at 06:59; Status DC Sodium Chloride 1,000 ml @ 1,000 mls/hr Q1H PRN IV hypotension; Start 03/24/19 at 07:40; Stop 03/24/19 at 13:39; Status DC Diphenhydramine HCl (Benadryl) 25 mg 1X PRN PRN IV ITCHING; Start 03/24/19 at 07:45; Stop 03/25/19 at 07:44; Status DC Diphenhydramine HCl (Benadryl) 25 mg 1X PRN PRN IV ITCHING; Start 03/24/19 at 0 7:45; Stop 03/25/19 at 07:44; Status DC Sodium Chloride 1,000 ml @ 400 mls/hr Q2H30M PRN IV PATENCY; Start 03/24/19 at 07:40; Stop 03/24/19 at 19:39; Status DC Info (PHARMACY MONITORING -- do not chart) 1 each PRN DAILY PRN MC SEE COMMENTS; Start 03/24/19 at 07:45; Stop 03/27/19 at 08:48; Status DC Methylprednisolone Sodium Succinate (SOLU-Medrol 125MG VIAL) 125 mg 1X ONCE IV Last administered on 03/24/19at 16:23; Start 03/24/19 at 16:00; Stop 03/24/19 at 16:01; Status DC Prednisone (Prednisone) 50 mg DAILY PO Last administered on 03/27/19at 14:15; Start 03/25/19 at 09:00 Sevoflurane (Ultane) 30 ml STK-MED ONCE IH ; Start 03/24/19 at 11:36; Stop 03/24/19 at 11:37; Status DC Fentanyl Citrate (Fentanyl 2ml Vial) 100 mcg STK-MED ONCE .ROUTE ; Start 03/24/19 at 11:36; Stop 03/24/19 at 11:37; Status DC Midazolam HCl (Versed) 2 mg STK-MED ONCE .ROUTE ; Start 03/24/19 at 11:36; Stop 03/24/19 at 11:37; Status DC Propofol 20 ml @ As Directed STK-MED ONCE IV ; Start 03/24/19 at 11:36; Stop 03/24/19 at 11:37; Status DC Lidocaine HCl (Lidocaine Pf 2% Vial) 5 ml STK-MED ONCE .ROUTE ; Start 03/24/19 at 11:36; Stop 03/24/19 at 11:37; Status DC Dexamethasone Sodium Phosphate (Decadron) 4 mg STK-MED ONCE .ROUTE ; Start 03/24/19 at 11:36; Stop 03/24/19 at 11:37; Status DC Ondansetron HCl (Zofran) 4 mg STK-MED ONCE .ROUTE ; Start 03/24/19 at 11:36; Stop 03/24/19 at 11:37; Status DC Bupivacaine HCl/ Epinephrine Bitart (Sensorcain-Mpf Epi 0.5%-1:304412) 30 ml STK-MED ONCE .ROUTE Last administered on 03/24/19at 12:55; Start 03/24/19 at 10:53; Stop 03/24/19 at 11:54; Status DC Phenylephrine HCl (PHENYLEPHRINE in 0.9% NACL PF) 1 mg STK-MED ONCE IV ; Start 03/24/19 at 12:33; Stop 03/24/19 at 12:34; Status DC Sodium Chloride (Normal Saline Flush) 3 ml QSHIFT PRN IV AFTER MEDS AND BLOOD DRAWS; Start 03/24/19 at 13:15 Throat Lozenges (Cepacol Sore Throat Lozenge) 1 chris PRN Q2HRS PRN PO SORE THROAT Last administered on 03/24/19at 21:57; Start 03/24/19 at 20:00 Insulin Glargine (Lantus) 15 units DAILY08 SQ Last administered on 03/27/19at 14:27; Start 03/25/19 at 09:45 Insulin Human Lispro (HumaLOG) 6 units 1X ONCE SQ Last administered on 03/25/19at 21:27; Start 03/25/19 at 21:00; Stop 03/25/19 at 21:01; Status DC Insulin Human Lispro (HumaLOG) 5 units TIDAC SQ Last administered on 03/26/19at 17:38; Start 03/26/19 at 07:30; Stop 03/27/19 at 08:58; Status DC Insulin Human Lispro (HumaLOG) 5 units TIDAC SQ ; Start 03/26/19 at 11:30; Status UNV Sodium Chloride 1,000 ml @ 1,000 mls/hr Q1H PRN IV hypotension; Start 03/27/19 at 08:42; Stop 03/27/19 at 14:41; Status DC Diphenhydramine HCl (Benadryl) 25 mg 1X PRN PRN IV ITCHING; Start 03/27/19 at 08:45; Stop 03/28/19 at 08:44 Diphenhydramine HCl (Benadryl) 25 mg 1X PRN PRN IV ITCHING; Start 03/27/19 at 08:45; Stop 03/28/19 at 08:44 Sodium Chloride 1,000 ml @ 400 mls/hr Q2H30M PRN IV PATENCY; Start 03/27/19 at 08:42; Stop 03/27/19 at 20:41 Info (PHARMACY MONITORING -- do not chart) 1 each PRN DAILY PRN MC SEE COMMENTS; Start 03/27/19 at 08:45 Insulin Human Lispro (HumaLOG) 8 units TIDAC SQ Last administered on 03/27/19at 14:28; Start 03/27/19 at 11:30 Active Scripts Active Novolog Flexpen (Insulin Aspart) 100 Unit/1 Ml Insuln.pen 8 Unit SQ TIDAC 30 Days Prednisone (Prednisone) 10 Mg Tablet 10 Mg PO UD Take 3 tablets by mouth twice a day for 3 days, then take 2 tablets by mouth twice a day for 3 days, then take 1 tablet by mouth twice a day for 3 days, then take 1 tablet by mouth daily x 3 days, then stop. Lantus Solostar (Insulin Glargine,Hum.rec.anlog) 100 Unit/1 Ml Insuln.pen 15 Unit SQ DAILY08 30 Days Keflex (Cephalexin) 500 Mg Capsule 1 Cap PO BID Metoprolol Succinate ( Xl ) (Metoprolol Succinate) 25 Mg Tab.er.24h 25 Mg PO QHS 30 Days Reported [phoslo] 2,001 Mg PO TID Movantik (Naloxegol Oxalate) 25 Mg Tablet 25 Mg PO DAILY Xopenex Hfa (Levalbuterol Tartrate) 15 Gm Hfa.aer.ad 2 Puff IH QID Keppra (Levetiracetam) 500 Mg Tablet 1 Tab PO BID Vol-Care Rx Tablet (Vit B Cmplx 3/Fa/Vit C/Biotin) 1 Each Tablet 1 Each PO DAILY Clopidogrel (Clopidogrel Bisulfate) 75 Mg Tablet 1 Tab PO DAILY Alprazolam 0.25 Mg Tablet 1 Tab PO PRN BID PRN Celexa (Citalopram Hydrobromide) 10 Mg Tablet 1 Tab PO DAILY Allopurinol 100 Mg Tablet 1 Tab PO DAILY Sensipar (Cinacalcet Hcl) 30 Mg Tablet 1 Tab PO DAILY Simvastatin 40 Mg Tablet 1 Tab PO QHS Gabapentin (Gabapentin) 300 Mg Capsule 1 Cap PO HS Senna (Sennosides) 8.6 Mg Capsule 8.6 Mg PO BID Cyclobenzaprine Hcl 10 Mg Tablet 1 Tab PO BID Reglan (Metoclopramide Hcl) 10 Mg Tablet 5 Mg PO QIDACHS Clonidine Hcl 0.1 Mg Tablet 1 Tab PO TID Hydrocodone-Apap 5-325 (Hydrocodone Bit/Acetaminophen) 1 Each Tablet 1 Tab PO PRN Q6HRS PRN Vitals/I & O Vital Sign - Last 24 Hours 03/26/19 03/26/19 03/26/19 03/26/19 15:18 16:25 19:15 20:00 Pulse 70 Resp 17 19 B/P (MAP) 144/70 (94) Pulse Ox 98 O2 Delivery Nasal Cannula Nasal Cannula Nasal Cannula O2 Flow Rate 2.0 2.0 2.0 03/26/19 03/26/19 03/26/19 03/26/19 20:27 21:44 21:44 21:45 Pulse 70 70 B/P (MAP) 144/70 144/70 Pulse Ox 98 O2 Delivery Nasal Cannula Nasal Cannula O2 Flow Rate 2.0 2.0 03/26/19 03/26/19 03/27/19 03/27/19 22:44 23:50 03:55 07:10 Temp 97.9 97.8 97.4 97.9 97.8 97.4 Pulse 65 68 72 Resp 20 19 20 B/P (MAP) 152/76 (101) 149/70 (96) 143/69 (93) Pulse Ox 100 100 100 98 O2 Delivery Nasal Cannula Nasal Cannula Nasal Cannula Nasal Cannula O2 Flow Rate 2.0 2.0 2.0 2.0 03/27/19 03/27/19 03/27/19 03/27/19 08:00 08:27 09:00 14:16 Pulse 72 71 B/P (MAP) 143/69 136/65 Pulse Ox 100 O2 Delivery Nasal Cannula Nasal Cannula O2 Flow Rate 2.0 2.0 Intake and Output 03/26/19 03/26/19 03/27/19 15:00 23:00 07:00 Intake Total 480 ml 840 ml 620 ml Balance 480 ml 840 ml 620 ml PATRICIA SILVEIRA MD March 27, 2019 14:47
--- NOTE | 2019-03-27 17:07 | PATHOLOGY ---
[facility] Accession Number: [id number] . 01 Material submitted: . artery - RIGHT TEMPORAL ARTERY. Modifiers: right, temporal . 01 Clinical history: . Headaches/tremors . 02 Diagnosis: Segment of artery with focal attached fibroadipose and skeletal muscle tissue, right temporal artery biopsy: - Medial arterial calcification. (JPM:cruise consultant; 03/27/2019) MBR/03/27/2019 . 02 Comment: The right temporal artery biopsy is examined at multiple levels. There is no evidence of temporal arteritis. . 02 Electronically signed: . Paddy Capps MD, Pathologist NPI- [id number] . 01 Gross description: . The specimen is received in formalin, labeled "Yuni Maguire, right temporal artery" and consists of an elongate segment of pink-salgado tissue measuring 1.5 x 0.3 x 0.2 cm which is submitted entirely in A1. (SDY; 03/24/2019) SYU/SYU . 02 Pathologist provided ICD-10: I70.8 . 02 CPT . 510002 Specimen Comment: A courtesy copy of this report has been sent to Specimen Comment: [phone], , . Specimen Comment: Report sent to ,DR WALL / DR ELIZABETH Performed at: 01 [facility] [address], [place] [id number] MD Jese Leblanc MD Phone: [phone] Performed at: 02 [facility] [address], [place] [id number] MD Paddy Capps MD Phone: [phone]
== END 2019-03-27 14:30 | disposition home health service (06) | DRG 40 ==
LOC: ER 06:23 → 6 SOUTH 07:57
PROVIDERS: ADMIT Internal Medicine; ATTEND Internal Medicine
PROC: 5A1D70Z Performance of Urinary Filtration, Intermittent, Less than 6 Hours Per Day (ICD-10-PCS; 2019-03-20)
PROC: 5A1D70Z Performance of Urinary Filtration, Intermittent, Less than 6 Hours Per Day (ICD-10-PCS; 2019-03-22)
PROC: 5A1D70Z Performance of Urinary Filtration, Intermittent, Less than 6 Hours Per Day (ICD-10-PCS; 2019-03-24)
PROC: 03BS0ZX Excision of Right Temporal Artery, Open Approach, Diagnostic (ICD-10-PCS; principal; 2019-03-24 13:15)
PROC: 5A1D70Z Performance of Urinary Filtration, Intermittent, Less than 6 Hours Per Day (ICD-10-PCS; 2019-03-27)
DX: G43.909 Migraine, unspecified, not intractable, without status migrainosus (principal); G93.41 Metabolic encephalopathy; N18.6 End stage renal disease; N39.0 Urinary tract infection, site not specified; I13.2 Hypertensive heart and chronic kidney disease with heart failure and with stage 5 chronic kidney disease, or end stage renal disease; I47.1 Supraventricular tachycardia; I69.354 Hemiplegia and hemiparesis following cerebral infarction affecting left non-dominant side; Z68.42 Body mass index [BMI] 45.0-49.9, adult; R25.1 Tremor, unspecified; E11.22 Type 2 diabetes mellitus with diabetic chronic kidney disease; Z99.2 Dependence on renal dialysis; E66.01 Morbid (severe) obesity due to excess calories; D64.9 Anemia, unspecified; E03.9 Hypothyroidism, unspecified; E11.43 Type 2 diabetes mellitus with diabetic autonomic (poly)neuropathy; E78.5 Hyperlipidemia, unspecified; G40.909 Epilepsy, unspecified, not intractable, without status epilepticus; G47.33 Obstructive sleep apnea (adult) (pediatric); E21.3 Hyperparathyroidism, unspecified; F32.9 Major depressive disorder, single episode, unspecified; F41.9 Anxiety disorder, unspecified; K21.0 Gastro-esophageal reflux disease with esophagitis; M10.9 Gout, unspecified; I50.9 Heart failure, unspecified; K21.9 Gastro-esophageal reflux disease without esophagitis; J44.9 Chronic obstructive pulmonary disease, unspecified; M06.9 Rheumatoid arthritis, unspecified; M85.80 Other specified disorders of bone density and structure, unspecified site; Z82.49 Family history of ischemic heart disease and other diseases of the circulatory system; Z87.891 Personal history of nicotine dependence; Z90.710 Acquired absence of both cervix and uterus; Z99.3 Dependence on wheelchair; Z84.1 Family history of disorders of kidney and ureter; E11.65 Type 2 diabetes mellitus with hyperglycemia; T38.0X5A Adverse effect of glucocorticoids and synthetic analogues, initial encounter
CPT/HCPCS: 36415; 70450; 70544; 70551; 71045; 80048; 80053; 80177; 81001; 82553; 82962; 83605; 83735; 84443; 84484; 85025; 85027; 85610; 85651; 85730; 87340; 88305; 93005; 93306; 94640; 94760; 95816; 96374; 96375; A7015; J0360; J0696; J1100; J1815; J2001; J2060; J2250; J2370; J2405; J2704; J2930; J3010; J3490; J7120; J7512; J7613; J8597; 92526; 92610; 99285-25

== ENCOUNTER 2019-04-03 09:39 | Emergency (ER) | payer MEDICARE, OTHER ==
[~2019-04-03] VITALS: Ht 165.1 cm; Wt 134.7 kg
[~2019-04-03 09:39] MED LIST changes: +CEPH-264 PO; +INSU100I13 SQ; +METO-239 PO
--- NOTE | 2019-04-03 09:56 | PHYS DOC ---
Past Medical History Past Medical History: COPD, CVA, Diabetes-Type II, Renal Disease, Renal Failure, Seizure, Other Past Surgical History: Other Additional Past Surgical Histo: Dialysis shunt R) upper arm being used, shunt in left arm-not used anymore. Alcohol Use: None Drug Use: None Adult General HPI HPI Patient is a 68 year old female with a history of end-stage renal disease, CVA with left-sided deficit, hypertension, and diabetes presents to ED complaining of altered mental status this morning. Patient was receiving her dialysis this morning at [facility] and states her blood pressure got low and she was sleepy. EMS states that they gave her 1 liter of fluids and she came back to. Family reports this has happened several times and she is much better after the liter of fluids. Patient is alert and oriented in the ED and baseline per EMS. Denies chest pain, shortness of breath, abdominal pain, nausea/vomiting, diarrhea or fever. Review of Systems Review of Systems Constitutional: Denies fever or chills [] Eyes: Denies change in visual acuity, redness, or eye pain [] HENT: Denies nasal congestion or sore throat [] Respiratory: Denies cough or shortness of breath [] Cardiovascular: No additional information not addressed in HPI [] GI: Denies abdominal pain, nausea, vomiting, bloody stools or diarrhea [] : Denies dysuria or hematuria [] Musculoskeletal: Denies back pain or joint pain [] Integument: Denies rash or skin lesions [] Neurologic: Denies headache, focal weakness or sensory changes [] All other systems were reviewed and found to be within normal limits, except as documented in this note. Allergies Allergies Allergies Coded Allergies Type Severity Reaction Last Updated Verified No Known Drug Allergies 02/07/19 No Physical Exam Physical Exam Constitutional: no acute distress, non-toxic appearance. [] HENT: Normocephalic, atraumatic, bilateral external ears normal, oropharynx moist, no oral exudates, nose normal. [] Eyes: PERRLA, EOMI, conjunctiva normal, no discharge. [] Neck: Normal range of motion, no tenderness, supple, no stridor. [] Cardiovascular:Heart rate regular rhythm, no murmur [] Lungs & Thorax: Bilateral breath sounds clear to auscultation [] Abdomen: Bowel sounds normal, soft, no tenderness, no masses, no pulsatile masses. [] Skin: Warm, dry, no erythema, no rash. [] Back: No tenderness, no CVA tenderness. [] Extremities: No tenderness, no cyanosis, no clubbing, ROM intact, no edema. [] Neurologic: Alert and oriented X 3, normal motor function, normal sensory function. left sided arm and leg weakness at baseline. Psychologic: Affect normal, judgement normal, mood normal. [] Current Patient Data Vital Signs Vital Signs Date Time Temp Pulse Resp B/P (MAP) Pulse Ox O2 Delivery O2 Flow Rate FiO2 04/03/19 13:31 83 16 94 04/03/19 09:50 98.3 187/80 (115) Room Air 98.3 Lab Values Laboratory Tests Test 04/03/19 11:25 White Blood Count 7.7 x10^3/uL (4.0-11.0) Red Blood Count 3.33 x10^6/uL (3.50-5.40) L Hemoglobin 10.5 g/dL (12.0-15.5) L Hematocrit 32.7 % (36.0-47.0) L Mean Corpuscular Volume 98 fL (79-100) Mean Corpuscular Hemoglobin 32 pg (25-35) Mean Corpuscular Hemoglobin Concent 32 g/dL (31-37) Red Cell Distribution Width 14.6 % (11.5-14.5) H Platelet Count 177 x10^3/uL (140-400) Neutrophils (%) (Auto) 81 % (31-73) H Lymphocytes (%) (Auto) 9 % (24-48) L Monocytes (%) (Auto) 9 % (0-9) Eosinophils (%) (Auto) 1 % (0-3) Basophils (%) (Auto) 0 % (0-3) Neutrophils # (Auto) 6.2 x10^3uL (1.8-7.7) Lymphocytes # (Auto) 0.7 x10^3/uL (1.0-4.8) L Monocytes # (Auto) 0.7 x10^3/uL (0.0-1.1) Eosinophils # (Auto) 0.1 x10^3/uL (0.0-0.7) Basophils # (Auto) 0.0 x10^3/uL (0.0-0.2) Sodium Level 140 mmol/L (136-145) Potassium Level 4.3 mmol/L (3.5-5.1) Chloride Level 98 mmol/L (98-107) Carbon Dioxide Level 32 mmol/L (21-32) Anion Gap 10 (6-14) Blood Urea Nitrogen 44 mg/dL (7-20) H Creatinine 4.9 mg/dL (0.6-1.0) H Estimated GFR (Cockcroft-Gault) 10.7 BUN/Creatinine Ratio 9 (6-20) Glucose Level 201 mg/dL (70-99) H Calcium Level 8.8 mg/dL (8.5-10.1) Total Bilirubin 0.3 mg/dL (0.2-1.0) Aspartate Amino Transferase (AST) 24 U/L (15-37) Alanine Aminotransferase (ALT) 26 U/L (14-59) Alkaline Phosphatase 119 U/L (46-116) H Troponin I Quantitative 0.017 ng/mL (0.000-0.055) Total Protein 7.1 g/dL (6.4-8.2) Albumin 3.2 g/dL (3.4-5.0) L Albumin/Globulin Ratio 0.8 (1.0-1.7) L Laboratory Tests 04/03/19 11:25 Laboratory Tests 04/03/19 11:25 EKG EKG []EKG shows Sinus rhythm at 82 BPM. No STEMI. Radiology/Procedures Radiology/Procedures []PROCEDURE: PORTABLE CHEST 1V PORTABLE CHEST 1V History: Altered mental status Comparison: March 20, 2019 Findings: Single view of the chest is submitted. There are again stents in the right subclavian region extending to the brachiocephalic region. There is again apparent elevation of the left hemidiaphragm. Heart size is stable. There is no pneumothorax. No new infiltrate is identified by radiograph. Impression: 1. No acute radiographic abnormality is identified. CT HEAD INDICATION: Altered mental status COMPARISON: 03/20/2019 Exposure: One or more of the following individualized dose reduction techniques were utilized for this examination: 1. Automated exposure control 2. Adjustment of the mA and/or kV according to patient size 3. Use of iterative reconstruction technique TECHNIQUE: 5 mm contiguous axial images were obtained from the skull base to the vertex in both bone and soft tissue algorithm. FINDINGS: Moderate size hypodensity identified in the right parietal lobe likely old infarct similar to prior exam. There is a small hypodensity identified in the left cerebellum likely old infarct similar to prior exam. Mild bilateral periventricular white matter hypodensities likely chronic small vessel ischemic disease. No evidence of acute intracranial hemorrhage. No extra-axial fluid collections. No mass effect or midline shift. Ventricular size is appropriate. Basal cisterns are patent. No fractures identified.Macias-white differentiation is preserved.Globes and orbits are within normal limits. Paranasal sinuses and mastoid air cells are clear. IMPRESSION: 1. No acute intracranial findings. 2. Moderate size hypodensity identified in the right parietal lobe likely old infarct similar to prior exam. There is a small hypodensity identified in the left cerebellum likely old infarct similar to prior exam. Course & Med Decision Making Course & Med Decision Making Pertinent Labs and Imaging studies reviewed. (See chart for details) []Discussed lab and imaging findings with patient at bedside. Patient received all but a half-hour of her dialysis. Patient's creatinine is 4.9 is within her normal range when comparing with previous visits. Patient well-appearing exam room. Laughing and smiling talking with family. Patient is alert and oriented. Family states similar symptoms happened to the patient when she goes to dialysis. States that usually her liter of fluids and she improves. Patient offered admission but states that she would rather go home. Discussed signs and symptoms to return to the ED. Family understands and agrees with plan. Dragon Disclaimer Dragon Disclaimer This electronic medical record was generated, in whole or in part, using a voice recognition dictation system. Departure Departure Impression: Primary Impression: ESRD (end stage renal disease) Additional Impression: Old cerebrovascular accident (CVA) without late effect Disposition: 01 HOME, SELF-CARE Condition: IMPROVED Referrals: CARMITA WALL MD (PCP) Patient Instructions: End Stage Kidney Disease Problem Qualifiers JAVIER WALLACE April 03, 2019 09:56
--- NOTE | 2019-04-03 10:20 | RAD ---
PORTABLE CHEST 1V History: Altered mental status Comparison: March 20, 2019 Findings: Single view of the chest is submitted. There are again stents in the right subclavian region extending to the brachiocephalic region. There is again apparent elevation of the left hemidiaphragm. Heart size is stable. There is no pneumothorax. No new infiltrate is identified by radiograph. Impression: 1. No acute radiographic abnormality is identified. Electronically signed by: Dhiraj Gonzalez MD (04/03/2019 10:17 AM) [id number]
--- NOTE | 2019-04-03 10:38 | RAD ---
CT HEAD INDICATION: Altered mental status COMPARISON: 03/20/2019 Exposure: One or more of the following individualized dose reduction techniques were utilized for this examination: 1. Automated exposure control 2. Adjustment of the mA and/or kV according to patient size 3. Use of iterative reconstruction technique TECHNIQUE: 5 mm contiguous axial images were obtained from the skull base to the vertex in both bone and soft tissue algorithm. FINDINGS: Moderate size hypodensity identified in the right parietal lobe likely old infarct similar to prior exam. There is a small hypodensity identified in the left cerebellum likely old infarct similar to prior exam. Mild bilateral periventricular white matter hypodensities likely chronic small vessel ischemic disease. No evidence of acute intracranial hemorrhage. No extra-axial fluid collections. No mass effect or midline shift. Ventricular size is appropriate. Basal cisterns are patent. No fractures identified.Macias-white differentiation is preserved.Globes and orbits are within normal limits. Paranasal sinuses and mastoid air cells are clear. IMPRESSION: 1. No acute intracranial findings. 2. Moderate size hypodensity identified in the right parietal lobe likely old infarct similar to prior exam. There is a small hypodensity identified in the left cerebellum likely old infarct similar to prior exam. Electronically signed by: Ovidio Taylor MD (04/03/2019 10:35 AM) [facility]
[2019-04-03 11:42] LABS: BASO % 0 % (0-3); EOS # 0.1 x10^3/uL (0.0-0.7); EOS % 1 % (0-3); HEMATOCRIT 32.7 % (36.0-47.0); HEMOGLOBIN 10.5 g/dL (12.0-15.5); LYMPH # 0.7 x10^3/uL (1.0-4.8); LYMPH % 9 % (24-48); MEAN CORPUSCULAR HEMOGLOBIN 32 pg (25-35); MEAN CORPUSCULAR HGB CONC 32 g/dL (31-37); MEAN CORPUSCULAR VOLUME 98 fL (79-100); MONO # 0.7 x10^3/uL (0.0-1.1); MONO % 9 % (0-9); NEUT # 6.2 x10^3uL (1.8-7.7); NEUT % 81 % (31-73); PLATELET COUNT 177 x10^3/uL (140-400); RED BLOOD COUNT 3.33 x10^6/uL (3.50-5.40); RED CELL DISTRIBUTION WIDTH 14.6 % (11.5-14.5); WHITE BLOOD COUNT 7.7 x10^3/uL (4.0-11.0)
[2019-04-03 11:53] LABS: CALCIUM 8.8 mg/dL (8.5-10.1); CREATININE 4.9 mg/dL (0.6-1.0); GFR 10.7; POTASSIUM 4.3 mmol/L (3.5-5.1)
--- NOTE | 2019-04-03 12:04 | EKG ---
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
[2019-04-03 12:06] LABS: ALBUMIN 3.2 g/dL (3.4-5.0); ALBUMIN/GLOBULIN RATIO 0.8 (1.0-1.7); TOTAL BILIRUBIN 0.3 mg/dL (0.2-1.0); TOTAL PROTEIN 7.1 g/dL (6.4-8.2)
[2019-04-03 13:31] VITALS: BP 167/80
== END 2019-04-03 14:30 | disposition home or self-care (01) ==
LOC: ER 09:39
DX: E11.22 Type 2 diabetes mellitus with diabetic chronic kidney disease (principal); I12.0 Hypertensive chronic kidney disease with stage 5 chronic kidney disease or end stage renal disease; N18.6 End stage renal disease; J44.9 Chronic obstructive pulmonary disease, unspecified; R41.82 Altered mental status, unspecified; Z99.2 Dependence on renal dialysis; Z86.73 Personal history of transient ischemic attack (TIA), and cerebral infarction without residual deficits
CPT/HCPCS: 36415; 70450; 71045; 80053; 84484; 85025; 93005; 99285-25

== ENCOUNTER 2019-04-21 07:01 | Inpatient (IN) | payer OTHER ==
[~2019-04-21] VITALS: Ht 165.1 cm; Wt 126.6 kg
[2019-04-21] MEDS ORDERED: DEXTROSE 50% 25 GM / 50ML DISP.SYRIN. IV ONE ×2 (07:10→07:15)
--- NOTE | 2019-04-21 07:36 | PHYS DOC ---
Past Medical History Past Medical History: COPD, CVA, Diabetes-Type II, Renal Disease, Renal F ailure, Seizure, Other Past Surgical History: Other Additional Past Surgical Histo: Dialysis shunt R) upper arm being used, shunt in left arm-not used anymore. Alcohol Use: None Drug Use: None Adult General Chief Complaint Chief Complaint: ALTERED MENTAL STATUS HPI HPI Patient is a 68 year old female with history of end-stage renal disease on dialysis brought in by EMS because of altered level of consciousness. Patient had her last dialysis one week ago and because of holiday did not have any dialysis 5 days ago and missed dialysis 2 days ago. Patient was at dialysis this morning and was confused and agitated and not acting like her usually alert and oriented. EMS reported blood sugar of 27 and because of lack of IV line and give her 5 g of oral glucose. Patient had blood sugar of 24 at arrival to ER. Patient is alert and oriented 1 with slurred speech and unable to give history. Review of Systems Review of Systems Unable to obtain because of altered level of consciousness. Current Medications Current Medications Current Medications Medications (Trade) Dose Ordered Sig/Yumiko Start Time Stop Time Status Last Admin Dose Admin Dextrose (Dextrose 50%-Water Syringe) 25 gm 1X ONCE 04/21/19 07:15 04/21/19 07:16 DC 04/21/19 07:16 25 GM Allergies Allergies Allergies Coded Allergies Type Severity Reaction Last Updated Verified No Known Drug Allergies 02/07/19 No Physical Exam Physical Exam Constitutional: Well nourished, mild distress, non-toxic appearance, morbidly obese. [] HENT: Normocephalic, atraumatic oropharynx dry. Eyes: PERRLA, EOMI, conjunctiva normal, no discharge. [] Neck: Normal range of motion, no tenderness, supple, no stridor. [] Cardiovascular:Heart rate regular rhythm, no murmur [] Lungs & Thorax: Bilateral breath sounds clear to auscultation [] Abdomen: Bowel sounds normal, soft, no tenderness, no masses, no pulsatile masses. [] Skin: Warm, dry, no erythema, no rash. [] Back: No tenderness, no CVA tenderness. [] Extremities: No tenderness, no cyanosis, no clubbing, ROM intact, no edema. [] Neurologic: Alert and oriented X1 , left upper and lower extremity weakness related to old CVA Psychologic: Unable to evaluate Current Patient Data Vital Signs Vital Signs Date Time Temp Pulse Resp B/P (MAP) Pulse Ox O2 Delivery O2 Flow Rate FiO2 04/21/19 07:05 97.5 83 20 189/87 (121) 100 Room Air 97.5 Lab Values Laboratory Tests Test 04/21/19 07:16 Glucose (Fingerstick) 24 mg/dL (70-99) *L EKG EKG EKG interpreted by me. EKG at 0 745 showed normal sinus rhythm at rate of 79, normal NV and QT intervals, no acute ST and T-wave abnormalities. Radiology/Procedures Radiology/Procedures [facility] [address] [place] [address] IMAGING REPORT Signed PATIENT: MARKUS HE ACCOUNT: [id number] : 1950 LOCATION: ER AGE: 68 SEX: F EXAM STATUS: REG ER ORD. PHYSICIAN: CHRISSY WITT MD REASON: ALOC, ALTERED MENTAL STATUS PROCEDURE: PORTABLE CHEST 1V Portable chest, 04/21/2019: HISTORY: Altered mental status Comparison is made to a study from 04/03/2019. Vascular stents are again noted projected over the right innominate/subclavian region. The heart is at the upper limits of normal in size and unchanged. There is calcific plaquing the aorta. There is slight elevation of the left hemidiaphragm. No acute infiltrate is seen. There is no evidence of pleural fluid. IMPRESSION: No acute cardiopulmonary abnormality is detected. Electronically signed by: Moo Miranda MD (04/21/2019 7:36 AM) [facility] DICTATED and SIGNED BY: MOO MIRANDA MD DATE: 04/21/19 0736 [facility] [address] [place], [place] [id number] IMAGING REPORT Signed PATIENT: MARKUS HE ACCOUNT: [id number] : 1950 LOCATION: [address] [place] [address] AGE: 68 SEX: F EXAM STATUS: ADM IN ORD. PHYSICIAN: CHRISSY WITT MD REASON: ALOC PROCEDURE: CT HEAD WO CONTRAST EXAM: CT Head without IV contrast CLINICAL HISTORY: Altered level of consciousness COMPARISON: None. TECHNIQUE: Routine CT of the head without contrast. Soft tissues and bone windows were reviewed. PQRS compliance statement - One or more of the following individualized dose reduction techniques were utilized for this study: 1. Automated exposure control 2. Adjustment of the mA and/or kV according to patient size 3. Use of iterative reconstruction technique FINDINGS: There is no evidence of hemorrhage, mass or extra-axial fluid collection. Encephalomalacia of the right parietotemporal region likely from old infarct, unchanged. Subcortical and periventricular foci of hypoattenuation may be seen with chronic small vessel disease. The ventricles, basilar cisterns and cortical sulci are normal in size and configuration for the patients stated age. Wedge-shaped hypoattenuation in the left cerebellum also likely from old infarct. The calvarium demonstrates no evidence of fracture or focal lesion. There is normal aeration of the visualized paranasal sinuses and mastoid air cells. The visualized portions of the orbits are normal. Atherosclerotic calcifications of the intracranial internal carotid and vertebral arteries is seen. IMPRESSION: 1. No evidence for acute intracranial process 2. Changes of old infarcts in the right parietotemporal and left cerebellar regions. Electronically signed by: Daniele Ye MD (04/21/2019 7:43 AM) [facility] DICTATED and SIGNED BY: DANIELE YE MD DATE: 04/21/19 0743 Course & Med Decision Making Course & Med Decision Making Pertinent Labs and Imaging studies reviewed. (See chart for details) Evaluation of patient in ER showed 68-year-old female patient with history of dialysis brought in because of altered level of consciousness. Patient had blood sugar of 24 to arrival to ER and treated with D50 and became more alert and oriented. Patient tolerated oral intake and had blood sugar was 70. D10 was ordered. Potassium was 5.1 by point of care.Patient requiring admission for further evaluation and treatment. Discussed with Dr. Wall who is in agreement with admission. Discussed findings and plan with patient and family, who acknowledge understanding and agreement. Dragon Disclaimer Dragon Disclaimer This electronic medical record was generated, in whole or in part, using a voice recognition dictation system. Departure Departure Impression: Primary Impression: Hypoglycemia Additional Impressions: Altered level of consciousness ESRD (end stage renal disease) Missed dialysis Morbid obesity Disposition: 09 ADMITTED INPATIENT (@ 0840) Admitting Physician: Luca Wall (accepted admission at 0 839) Condition: GUARDED Referrals: LUCA WALL MD (PCP) Problem Qualifiers CHRISSY WITT MD April 21, 2019 07:35
--- NOTE | 2019-04-21 07:39 | RAD ---
Portable chest, 04/21/2019: HISTORY: Altered mental status Comparison is made to a study from 04/03/2019. Vascular stents are again noted projected over the right innominate/subclavian region. The heart is at the upper limits of normal in size and unchanged. There is calcific plaquing the aorta. There is slight elevation of the left hemidiaphragm. No acute infiltrate is seen. There is no evidence of pleural fluid. IMPRESSION: No acute cardiopulmonary abnormality is detected. Electronically signed by: Moo Miranda MD (04/21/2019 7:36 AM) [facility]
--- NOTE | 2019-04-21 07:46 | RAD ---
EXAM: CT Head without IV contrast CLINICAL HISTORY: Altered level of consciousness COMPARISON: None. TECHNIQUE: Routine CT of the head without contrast. Soft tissues and bone windows were reviewed. PQRS compliance statement - One or more of the following individualized dose reduction techniques were utilized for this study: 1. Automated exposure control 2. Adjustment of the mA and/or kV according to patient size 3. Use of iterative reconstruction technique FINDINGS: There is no evidence of hemorrhage, mass or extra-axial fluid collection. Encephalomalacia of the right parietotemporal region likely from old infarct, unchanged. Subcortical and periventricular foci of hypoattenuation may be seen with chronic small vessel disease. The ventricles, basilar cisterns and cortical sulci are normal in size and configuration for the patients stated age. Wedge-shaped hypoattenuation in the left cerebellum also likely from old infarct. The calvarium demonstrates no evidence of fracture or focal lesion. There is normal aeration of the visualized paranasal sinuses and mastoid air cells. The visualized portions of the orbits are normal. Atherosclerotic calcifications of the intracranial internal carotid and vertebral arteries is seen. IMPRESSION: 1. No evidence for acute intracranial process 2. Changes of old infarcts in the right parietotemporal and left cerebellar regions. Electronically signed by: Daniele Matias MD (04/21/2019 7:43 AM) [facility]
[2019-04-21 08:34] LABS: BASO % 0 % (0-3); EOS % 1 % (0-3); HEMATOCRIT 30.9 % (36.0-47.0); HEMOGLOBIN 9.9 g/dL (12.0-15.5); LYMPH # 0.7 x10^3/uL (1.0-4.8); LYMPH % 14 % (24-48); MEAN CORPUSCULAR HEMOGLOBIN 32 pg (25-35); MEAN CORPUSCULAR HGB CONC 32 g/dL (31-37); MEAN CORPUSCULAR VOLUME 99 fL (79-100); MONO # 0.5 x10^3/uL (0.0-1.1); MONO % 9 % (0-9); NEUT # 3.9 x10^3uL (1.8-7.7); NEUT % 76 % (31-73); PLATELET COUNT 240 x10^3/uL (140-400); RED BLOOD COUNT 3.13 x10^6/uL (3.50-5.40); RED CELL DISTRIBUTION WIDTH 14.5 % (11.5-14.5); WHITE BLOOD COUNT 5.2 x10^3/uL (4.0-11.0)
[2019-04-21 08:44] LABS: CREATININE 7.7 mg/dL (0.6-1.0); GFR 6.3; POTASSIUM 5.1 mmol/L (3.5-5.1)
[2019-04-21 08:50] VITALS: BP 176/63
[2019-04-21 08:51] LABS: ALBUMIN 3.7 g/dL (3.4-5.0); ALBUMIN/GLOBULIN RATIO 0.8 (1.0-1.7); MAGNESIUM 3.9 mg/dL (1.8-2.4); TOTAL BILIRUBIN 0.4 mg/dL (0.2-1.0); TOTAL PROTEIN 8.2 g/dL (6.4-8.2)
[2019-04-21] MEDS ORDERED: DEXTROSE 50% 25 GM / 50ML DISP.SYRIN. IV PRN (10:00)
[2019-04-21] MEDS ORDERED: HYDROcodone/APAP 5/325MG 1 TAB TABLET PO PRN (10:00)
[2019-04-21] MEDS ORDERED: ALPRAZolam 0.25 MG TABLET PO PRN (10:00)
--- NOTE | 2019-04-21 10:05 | PDOC ---
Provider Note Provider Note Pt seen.H&P dictated. #[id number] CARMITA WALL MD April 21, 2019 10:05
--- NOTE | 2019-04-21 10:27 | HP ---
ADMIT DATE: 04/21/2019 LOCATION: [facility] REASON FOR ADMISSION TO THE HOSPITAL: Hypoglycemia, change in mental status. The patient is a diabetic. HISTORY OF PRESENT ILLNESS: The patient is a 68-year-old female. The patient has history of diabetes; renal failure, on dialysis; hypertension; previous stroke; and seizures. She missed dialysis on , because she did not feel well. She did not go again on Wednesday and today she went to dialysis, but she was confused and lethargic and blood sugar was low at 20, was brought to the hospital and the patient was given D50 ampule and condition improved. She was much better. The patient was admitted to the hospital for hypoglycemia as well as for dialysis. The patient says she takes 20 units of Levemir and then 5 units of NovoLog with each meal. She says she did not eat well last night. PAST MEDICAL HISTORY: She was in the hospital a month ago for seizure-like activity and she has diabetes, hypertension, stroke, end-stage renal disease, obesity. Had a gluteal abscess and a breast abscess. PAST SURGICAL HISTORY: AV shunt both upper and lower arms. ALLERGIES: No known allergies. MEDICATIONS: She is on allopurinol 100 mg daily, Xanax 0.25 twice a day, Sensipar 30 mg daily, citalopram 10 mg daily, clonidine 0.1 mg 3 times daily, Plavix 75 mg daily, cyclobenzaprine 10 mg twice a day, gabapentin 300 mg at bedtime, hydrocodone 10/325 q.6, Xopenex inhaler, Keppra 500 mg 2 tablets twice a day, Reglan 10 mg before meals and bedtime, Movantik 25 mg daily, simvastatin 40 mg daily, B complex daily, Nephro-Britton 667 mg 3 times daily. She takes insulin Levemir 20 units at bedtime, NovoLog 5 units with each meal. PERSONAL HISTORY: Smoked long time back, has not smoked for many years. Denies alcohol or drug use. SOCIAL HISTORY: Lives with her daughter, wheelchair level activity, and motor scooter. Goes to dialysis 3 times a week. FAMILY HISTORY: Positive for diabetes, hypertension, stroke. REVIEW OF SYMPTOMS: Denies any chest pain. Just did not feel well this week. PHYSICAL EXAMINATION: GENERAL: The patient is not in any distress. VITAL SIGNS: Temperature 97, pulse 83, respirations 20, blood pressure 189/87 and 96% room air. HEENT: Head is atraumatic. Pupils equal. Oral cavity: No congestion. NECK: Supple. Thyroid not enlarged. JVD not elevated. CHEST: Symmetrical. CARDIOVASCULAR: S1, S2. LUNGS: Clear. ABDOMEN: Obese. No mass palpable. EXTERNAL GENITALIA: No Phillips. RECTAL: Deferred. EXTREMITIES: No calf tenderness, no edema. The patient has a previous stroke on the left side with hemiparesis and she has some tremor of the right upper extremity. NEUROLOGIC: The patient is oriented to place, person and time, recognized me. LABORATORY DATA: Shows white count 5, hemoglobin 10, platelets 240. Electrolytes show sodium 140, potassium 5.1, chloride 99, bicarbonate 27, BUN 65, creatinine 7.7, glucose 59 and 25 when she came to the Emergency Room. Magnesium 3.9. LFTs normal. Chest x-ray: No acute abnormality. CT head, old stroke. FINAL IMPRESSION: 1. Hypoglycemia. 2. Missed dialysis 3 times this week, not feeling well. 3. Insulin-dependent diabetes. 4. End-stage renal disease, on hemodialysis. 5. Old stroke. 6. Seizures. 7. Morbid obesity. 8. Hypertension. 9. Hyperlipidemia. 10. Sleep apnea. PLAN: At this time, was admit to hospital, was given D50. The patient's condition improved. Monitor blood sugars, do not give any sliding scale until sugars more than 200. She wants to be scheduled for dialysis today and see how she improves. CARMITA WALL MD DR: EDIE/ayan JOB#: [id number] / [id number]
[2019-04-21 11:15] VITALS: BP 185/67
--- NOTE | 2019-04-21 11:19 | EKG ---
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
--- NOTE | 2019-04-21 11:31 | PDOC2 ---
CONSULT Date of Consult Date of Consult DATE: 04/21/19 TIME: 11:27 Reason for Consult Reason for Consult: ESRD Referring Physician Referring Physician: MAE Identification/Chief Complaint Chief Complaint LOC Source Source: Chart review, Patient History of Present Illness Reason for Visit: THIS IS A 68 YR OLD ESRD PT WITH LOC DUE TO HYPOGLYCEMIA. NOT BEEN EATING WELL PER PT. ALSO HAS NOT BEEN TO HD LAST 2 TREATMENTS DUE TO NOT FEELING WELL AND WEAK. LABS ARE C/W HER ESRD STATUS. BG OF 27 INITIALLY NOW MENTATING WELL AFTER IT WAS CORRECTED. ESRD IS DUE TO DM II AND HTN. HEMODYNAMICALLY STABLE Past Medical History Cardiovascular: CHF, HTN, Other Pulmonary: Asthma, Bronchitis, COPD, Other CENTRAL NERVOUS SYSTEM: CVA, Seizure GI: Constipation, GERD Heme/Onc: Anemia NOS Psych: Anxiety, Depression Musculoskeletal: Other Rheumatologic: Gout, Rheumatoid arthritis Renal/: Chronic renal failure Endocrine: Diabetes, Hyperparathyroidism Past Surgical History Past Surgical History: Cholecystectomy, , Hysterectomy, Other Family History Family History: Coronary Artery Disease, Hypertension, Kidney Disease Social History ALCOHOL: none Drugs: None Lives: with Family Current Problem List Problem List Problems Medical Problems: (1) Altered level of consciousness Status: Acute (2) ESRD (end stage renal disease) Status: Acute (3) Hypoglycemia Status: Acute (4) Missed dialysis Status: Acute (5) Morbid obesity Status: Acute Current Medications Current Medications Current Medications Dextrose (Dextrose 50%-Water Syringe) 25 gm STK-MED ONCE IV ; Start 04/21/19 at 07:10; Stop 04/21/19 at 07:11; Status DC Dextrose (Dextrose 50%-Water Syringe) 25 gm 1X ONCE IV Last administered on 04/21/19at 07:16; Start 04/21/19 at 07:15; Stop 04/21/19 at 07:16; Status DC Dextrose 1,000 ml @ 75 mls/hr [id number] IV ; Start 04/21/19 at 08:45 Allopurinol (Zyloprim) 100 mg DAILY PO ; Start 04/21/19 at 10:30 Alprazolam (Xanax) 0.25 mg PRN BID PRN PO ANXIETY / AGITATION; Start 04/21/19 at 10:00 Cinacalcet (Sensipar) 30 mg DAILY PO ; Start 04/21/19 at 10:30 Citalopram Hydrobromide (CeleXA) 10 mg DAILY PO ; Start 04/21/19 at 10:30 Clonidine HCl (Catapres) 0.1 mg TID PO ; Start 04/21/19 at 10:30 Clopidogrel Bisulfate (Plavix) 75 mg DAILY PO ; Start 04/21/19 at 10:30 Cyclobenzaprine HCl (Flexeril) 10 mg BID PO ; Start 04/21/19 at 10:30 Gabapentin (Neurontin) 300 mg HS PO ; Start 04/21/19 at 21:00 Acetaminophen/ Hydrocodone Bitart (Lortab 5/325) 1 tab PRN Q6HRS PRN PO PAIN; Start 04/21/19 at 10:00 Levetiracetam (Keppra) 500 mg BID PO ; Start 04/21/19 at 10:30 Metoclopramide HCl (Reglan) 2.5 mg QIDACHS PO ; Start 04/21/19 at 11:30 Metoprolol Succinate (Toprol Xl) 25 mg QHS PO ; Start 04/21/19 at 21:00 Non-Formulary Medication (Levalbuterol Tartrate (Xopenex Hfa)) 2 puff QID IH ; Start 04/21/19 at 13:00; Status UNV Non-Formulary Medication (Naloxegol Oxalate (Movantik)) 25 mg DAILY PO ; Start 04/22/19 at 09:00; Status UNV Sennosides (Senna) 8.6 mg BID PO ; Start 04/21/19 at 10:30 Simvastatin (Zocor) 40 mg QHS PO ; Start 04/21/19 at 21:00 Vitamin B Complex/ Vitamin C (Makayla-Britton) 1 tab DAILY PO ; Start 04/21/19 at 10:30 Calcium Acetate (Phoslo) 2,001 mg TIDWMEALS PO ; Start 04/21/19 at 12:00 Dextrose (Dextrose 50%-Water Syringe) 12.5 gm PRN Q15MIN PRN IV SEE COMMENTS; Start 04/21/19 at 10:00 Heparin Sodium (Porcine) (Heparin Sodium) 5,000 unit Q8HRS SQ ; Start 04/21/19 at 14:00 Albuterol Sulfate (Ventolin Neb Soln) 2.5 mg RTQID NEB ; Start 04/21/19 at 12:00 Active Scripts Active Novolog Flexpen (Insulin Aspart) 100 Unit/1 Ml Insuln.pen 8 Unit SQ TIDAC 30 Days Prednisone (Prednisone) 10 Mg Tablet 10 Mg PO UD Take 3 tablets by mouth twice a day for 3 days, then take 2 tablets by mouth twice a day for 3 days, then take 1 tablet by mouth twice a day for 3 days, then take 1 tablet by mouth daily x 3 days, then stop. Lantus Solostar (Insulin Glargine,Hum.rec.anlog) 100 Unit/1 Ml Insuln.pen 15 Unit SQ DAILY08 30 Days Keflex (Cephalexin) 500 Mg Capsule 1 Cap PO BID Metoprolol Succinate ( Xl ) (Metoprolol Succinate) 25 Mg Tab.er.24h 25 Mg PO QHS 30 Days Reported [phoslo] 2,001 Mg PO TID Movantik (Naloxegol Oxalate) 25 Mg Tablet 25 Mg PO DAILY Xopenex Hfa (Levalbuterol Tartrate) 15 Gm Hfa.aer.ad 2 Puff IH QID Keppra (Levetiracetam) 500 Mg Tablet 1 Tab PO BID Vol-Care Rx Tablet (Vit B Cmplx 3/Fa/Vit C/Biotin) 1 Each Tablet 1 Each PO DAILY Clopidogrel (Clopidogrel Bisulfate) 75 Mg Tablet 1 Tab PO DAILY Alprazolam 0.25 Mg Tablet 1 Tab PO PRN BID PRN Celexa (Citalopram Hydrobromide) 10 Mg Tablet 1 Tab PO DAILY Allopurinol 100 Mg Tablet 1 Tab PO DAILY Sensipar (Cinacalcet Hcl) 30 Mg Tablet 1 Tab PO DAILY Simvastatin 40 Mg Tablet 1 Tab PO QHS Gabapentin (Gabapentin) 300 Mg Capsule 1 Cap PO HS Senna (Sennosides) 8.6 Mg Capsule 8.6 Mg PO BID Cyclobenzaprine Hcl 10 Mg Tablet 1 Tab PO BID Reglan (Metoclopramide Hcl) 10 Mg Tablet 5 Mg PO QIDACHS Clonidine Hcl 0.1 Mg Tablet 1 Tab PO TID Hydrocodone-Apap 5-325 (Hydrocodone Bit/Acetaminophen) 1 Each Tablet 1 Tab PO PRN Q6HRS PRN Allergies Allergies: Coded Allergies: No Known Drug Allergies (Unverified , 02/07/19) ROS General: YES: Fatigue, Malaise PSYCHOLOGICAL ROS: YES: Anxiety, Depression Eyes: Yes Decreased vision HEENT: YES: Heacaches Respiratory: YES: Cough Gastrointestinal: Yes Nausea, Yes Constipation Genitourinary: YES Other (ANURIA) Musculoskeletal: Yes Muscular Weakness Neurological: Yes Weakness Skin: Yes Dry Skin Physical Exam General: Alert, Oriented X3, Cooperative, No acute distress HEENT: Atraumatic, PERRLA Lungs: Clear to auscultation Heart: Regular rate Abdomen: Normal bowel sounds, Soft, No tenderness Extremities: No cyanosis Skin: No breakdown Neuro: Normal speech MUSCULOSKELETAL: No joint tenderness, No deformity, No swelling Vitals VITALS Vital Signs Date Time Temp Pulse Resp B/P (MAP) Pulse Ox O2 Delivery O2 Flow Rate FiO2 04/21/19 11:15 97.5 78 20 185/67 (106) 100 Nasal Cannula 2.0 97.5 Labs Labs Laboratory Tests Test 04/21/19 08:20 White Blood Count 5.2 x10^3/uL (4.0-11.0) Red Blood Count 3.13 x10^6/uL (3.50-5.40) Hemoglobin 9.9 g/dL (12.0-15.5) Hematocrit 30.9 % (36.0-47.0) Mean Corpuscular Volume 99 fL (79-100) Mean Corpuscular Hemoglobin 32 pg (25-35) Mean Corpuscular Hemoglobin Concent 32 g/dL (31-37) Red Cell Distribution Width 14.5 % (11.5-14.5) Platelet Count 240 x10^3/uL (140-400) Neutrophils (%) (Auto) 76 % (31-73) Lymphocytes (%) (Auto) 14 % (24-48) Monocytes (%) (Auto) 9 % (0-9) Eosinophils (%) (Auto) 1 % (0-3) Basophils (%) (Auto) 0 % (0-3) Neutrophils # (Auto) 3.9 x10^3uL (1.8-7.7) Lymphocytes # (Auto) 0.7 x10^3/uL (1.0-4.8) Monocytes # (Auto) 0.5 x10^3/uL (0.0-1.1) Eosinophils # (Auto) 0.0 x10^3/uL (0.0-0.7) Basophils # (Auto) 0.0 x10^3/uL (0.0-0.2) Sodium Level 140 mmol/L (136-145) Potassium Level 5.1 mmol/L (3.5-5.1) Chloride Level 99 mmol/L (98-107) Carbon Dioxide Level 27 mmol/L (21-32) Anion Gap 14 (6-14) Blood Urea Nitrogen 65 mg/dL (7-20) Creatinine 7.7 mg/dL (0.6-1.0) Estimated GFR (Cockcroft-Gault) 6.3 BUN/Creatinine Ratio 8 (6-20) Glucose Level 59 mg/dL (70-99) Calcium Level 10.0 mg/dL (8.5-10.1) Magnesium Level 3.9 mg/dL (1.8-2.4) Total Bilirubin 0.4 mg/dL (0.2-1.0) Aspartate Amino Transf (AST/SGOT) 26 U/L (15-37) Alanine Aminotransferase (ALT/SGPT) 19 U/L (14-59) Alkaline Phosphatase 135 U/L (46-116) Creatine Kinase 125 U/L (26-192) Troponin I Quantitative < 0.017 ng/mL (0.000-0.055) AV-Fgm-A-Type Natriuretic Peptide 1775 pg/mL (0-124) Total Protein 8.2 g/dL (6.4-8.2) Albumin 3.7 g/dL (3.4-5.0) Albumin/Globulin Ratio 0.8 (1.0-1.7) Laboratory Tests Test 04/21/19 08:20 White Blood Count 5.2 x10^3/uL (4.0-11.0) Red Blood Count 3.13 x10^6/uL (3.50-5.40) Hemoglobin 9.9 g/dL (12.0-15.5) Hematocrit 30.9 % (36.0-47.0) Mean Corpuscular Volume 99 fL (79-100) Mean Corpuscular Hemoglobin 32 pg (25-35) Mean Corpuscular Hemoglobin Concent 32 g/dL (31-37) Red Cell Distribution Width 14.5 % (11.5-14.5) Platelet Count 240 x10^3/uL (140-400) Neutrophils (%) (Auto) 76 % (31-73) Lymphocytes (%) (Auto) 14 % (24-48) Monocytes (%) (Auto) 9 % (0-9) Eosinophils (%) (Auto) 1 % (0-3) Basophils (%) (Auto) 0 % (0-3) Neutrophils # (Auto) 3.9 x10^3uL (1.8-7.7) Lymphocytes # (Auto) 0.7 x10^3/uL (1.0-4.8) Monocytes # (Auto) 0.5 x10^3/uL (0.0-1.1) Eosinophils # (Auto) 0.0 x10^3/uL (0.0-0.7) Basophils # (Auto) 0.0 x10^3/uL (0.0-0.2) Sodium Level 140 mmol/L (136-145) Potassium Level 5.1 mmol/L (3.5-5.1) Chloride Level 99 mmol/L (98-107) Carbon Dioxide Level 27 mmol/L (21-32) Anion Gap 14 (6-14) Blood Urea Nitrogen 65 mg/dL (7-20) Creatinine 7.7 mg/dL (0.6-1.0) Estimated GFR (Cockcroft-Gault) 6.3 BUN/Creatinine Ratio 8 (6-20) Glucose Level 59 mg/dL (70-99) Calcium Level 10.0 mg/dL (8.5-10.1) Magnesium Level 3.9 mg/dL (1.8-2.4) Total Bilirubin 0.4 mg/dL (0.2-1.0) Aspartate Amino Transf (AST/SGOT) 26 U/L (15-37) Alanine Aminotransferase (ALT/SGPT) 19 U/L (14-59) Alkaline Phosphatase 135 U/L (46-116) Creatine Kinase 125 U/L (26-192) Troponin I Quantitative < 0.017 ng/mL (0.000-0.055) EK-Qwc-M-Type Natriuretic Peptide 1775 pg/mL (0-124) Total Protein 8.2 g/dL (6.4-8.2) Albumin 3.7 g/dL (3.4-5.0) Albumin/Globulin Ratio 0.8 (1.0-1.7) Images Images Portable chest, 04/21/2019: HISTORY: Altered mental status Comparison is made to a study from 04/03/2019. Vascular stents are again noted projected over the right innominate/subclavian region. The heart is at the upper limits of normal in size and unchanged. There is calcific plaquing the aorta. There is slight elevation of the left hemidiaphragm. No acute infiltrate is seen. There is no evidence of pleural fluid. IMPRESSION: No acute cardiopulmonary abnormality is detected. Assessment/Plan Assessment/Plan IMP ESRD HYPOGLYCEMIA DM II HTN ANEMIA NON COMPLIANCE PLAN ENC COMPLIANCE ARANESP HD TODAY UF TO [facility] SENIOR MD April 21, 2019 11:31
[2019-04-21] MEDS: IV DEXTROSE 10% 1,000 ML IV SCH (11:48)
[2019-04-21] MEDS: CINACALCET HCL 30 MG TABLET PO SCH (11:50)
[2019-04-21] MEDS: CALCIUM ACETATE 667 MG CAPSULE PO SCH ×2 (11:50→17:44)
[2019-04-21] MEDS: levETIRAcetam 500 MG TABLET PO SCH (11:51)
[2019-04-21] MEDS: cloNIDine HCL 0.1 MG TABLET PO SCH ×3 (11:51→21:00)
[2019-04-21] MEDS: CITALOPRAM 10 MG TABLET. PO SCH (11:51)
[2019-04-21] MEDS: METOCLOPRAMIDE 5 MG TABLET. PO SCH ×2 (11:51→17:44)
[2019-04-21] MEDS: FOLIC/VIT B COMP W-C (RENAL) TABLET. PO SCH (11:51)
[2019-04-21] MEDS: SENNOSIDES 8.6 MG TABLET PO SCH (11:51)
[2019-04-21] MEDS: CLOPIDOGREL BISULFATE 75 MG TABLET PO SCH (11:52)
[2019-04-21] MEDS: CYCLOBENZAPRINE 10 MG TABLET. PO SCH (11:52)
[2019-04-21] MEDS: ALLOPURINOL 100 MG TABLET. PO SCH (11:52)
[2019-04-21] MEDS ORDERED: NON FORMULARY ITEM (Levalbuterol Tartrate (Xopenex Hfa) 2 PUFF) IH SCH (13:00)
[2019-04-21 14:12] LABS: CREATININE ISTAT 7.6 mg/dL (0.5-1.4); HEMOGLOBIN ISTAT 9.5 g/dL (12-15); ION CA ISTAT 1.06 mmol/L (1.13-1.32); POTASSIUM ISTAT 5.1 mmol/L (3.5-5.0)
[2019-04-21 15:00] VITALS: BP 149/74
[2019-04-21] MEDS: HEPARIN for SUB-Q USE 5,000 UNIT/ML VIAL. SQ SCH (15:33)
[2019-04-21] MEDS: ALBUTEROL SULFATE 2.5 MG/3 ML NEBU. NEB SCH ×2 (16:14→19:49)
[2019-04-21] MEDS ORDERED: IV NORMAL SALINE 1000ML BAG 1,000 ML IV PRN ×2 (20:32)
[2019-04-21] MEDS ORDERED: diphenhydrAMINE 50 MG/ML VIAL IV PRN ×2 (20:45)
[2019-04-21] MEDS ORDERED: DIALYSIS PATIENT. MC PRN (20:45)
[2019-04-21] MEDS ORDERED: DARBEPOETIN ALFA 60 MCG/0.3 ML DISP.SYRIN. SQ SCH (21:00)
--- NOTE | 2019-04-21 23:59 | NUR ---
Pt off unit to dialysis at 2004, returned at 2355. Per report 3 kilos were taken off.
[2019-04-22] VITALS (7 sets, daily range): BP systolic 105–153; BP diastolic 47–106
[2019-04-22] MEDS: GABAPENTIN 300 MG CAPSULE. PO SCH ×2 (00:12→22:06)
[2019-04-22] MEDS: levETIRAcetam 500 MG TABLET PO SCH ×3 (00:13→22:08)
[2019-04-22] MEDS: SENNOSIDES 8.6 MG TABLET PO SCH ×3 (00:13→22:06)
[2019-04-22] MEDS: METOCLOPRAMIDE 5 MG TABLET. PO SCH ×5 (00:13→22:10)
[2019-04-22] MEDS: CYCLOBENZAPRINE 10 MG TABLET. PO SCH ×3 (00:13→22:08)
[2019-04-22] MEDS: METOPROLOL SUCC 24HR ER 25 MG TAB.ER.24H. PO SCH ×2 (00:14→22:07)
[2019-04-22] MEDS: HEPARIN for SUB-Q USE 5,000 UNIT/ML VIAL. SQ SCH ×4 (00:19→22:21)
[2019-04-22] MEDS: SIMVASTATIN 40 MG TABLET. PO SCH ×2 (00:20→22:08)
[2019-04-22] MEDS: IV DEXTROSE 10% 1,000 ML IV SCH (00:46)
[2019-04-22 06:00] LABS: CHOLESTEROL/HDL RATIO 2.1
[2019-04-22] MEDS: ALBUTEROL SULFATE 2.5 MG/3 ML NEBU. NEB SCH ×4 (07:08→20:24)
[2019-04-22] MEDS: CALCIUM ACETATE 667 MG CAPSULE PO SCH ×3 (08:22→17:57)
[2019-04-22] MEDS: cloNIDine HCL 0.1 MG TABLET PO SCH ×3 (08:23→22:08)
[2019-04-22] MEDS: ALLOPURINOL 100 MG TABLET. PO SCH (08:23)
[2019-04-22] MEDS: CLOPIDOGREL BISULFATE 75 MG TABLET PO SCH (08:24)
[2019-04-22] MEDS: FOLIC/VIT B COMP W-C (RENAL) TABLET. PO SCH (08:24)
[2019-04-22] MEDS: CITALOPRAM 10 MG TABLET. PO SCH (08:25)
[2019-04-22] MEDS: CINACALCET HCL 30 MG TABLET PO SCH (08:28)
[2019-04-22] MEDS ORDERED: NON FORMULARY ITEM (Naloxegol Oxalate (Movantik) 25 MG) PO SCH (09:00)
--- NOTE | 2019-04-22 11:01 | PDOC ---
IM PROGRESS NOTES- Subjective Subjective Patient is sleepy but wakes up. Denies any dyspnea or pain. Blood sugar was 51 yesterday but this morning it is 221. Objective Vitals Vital Signs Date Time Temp Pulse Resp B/P (MAP) Pulse Ox O2 Delivery O2 Flow Rate FiO2 04/22/19 08:23 75 105/64 04/22/19 08:00 Nasal Cannula 2.0 04/22/19 07:27 98.4 16 98 98.4 Input & Output Intake and Output 04/22/19 07:00 Intake Total 976 ml Balance 976 ml Intake Oral 530 ml IV Total 446 ml # Bowel Movements 1 Physical Exam Physical Exam General appearance - very sleepy, chronically ill-appearing, and in no distress, responding verbally. Mental Status - oriented to person, place, and time, affect appropriate to mood Head - normal Chest -decreased breath sounds at bases Heart - S1 and S2 normal Abdomen - soft, nontender, nondistended, no masses or organomegaly Neurological -very sleepy Musculoskeletal - no muscular tenderness noted Extremities - edema plus Skin - warm and dry Labs Laboratory Tests Test 04/21/19 07:16 04/21/19 07:22 04/21/19 08:20 04/21/19 11:39 Glucose (Fingerstick) 24 mg/dL (70-99) 51 mg/dL (70-99) Bedside Hemoglobin 9.5 g/dL (12-15) Bedside Hematocrit 28 % (36-40) Bedside Sodium 135 mmol/L (135-145) Bedside Potassium 5.1 mmol/L (3.5-5.0) Bedside Chloride 100 mmol/L (98-110) Bedside Total CO2 29 mmol/L (23-32) Anion Gap 13 mmol/L (6-14) 14 (6-14) Bedside Blood Urea Nitrogen 55 mg/dL (8-26) Bedside Creatinine 7.6 mg/dL (0.5-1.4) Glucose Level 32 mg/dL (70-99) 59 mg/dL (70-99) Bedside Ionized Calcium (Linda) 1.06 mmol/L (1.13-1.32) White Blood Count 5.2 x10^3/uL (4.0-11.0) Red Blood Count 3.13 x10^6/uL (3.50-5.40) Hemoglobin 9.9 g/dL (12.0-15.5) Hematocrit 30.9 % (36.0-47.0) Mean Corpuscular Volume 99 fL (79-100) Mean Corpuscular Hemoglobin 32 pg (25-35) Mean Corpuscular Hemoglobin Concent 32 g/dL (31-37) Red Cell Distribution Width 14.5 % (11.5-14.5) Platelet Count 240 x10^3/uL (140-400) Neutrophils (%) (Auto) 76 % (31-73) Lymphocytes (%) (Auto) 14 % (24-48) Monocytes (%) (Auto) 9 % (0-9) Eosinophils (%) (Auto) 1 % (0-3) Basophils (%) (Auto) 0 % (0-3) Neutrophils # (Auto) 3.9 x10^3uL (1.8-7.7) Lymphocytes # (Auto) 0.7 x10^3/uL (1.0-4.8) Monocytes # (Auto) 0.5 x10^3/uL (0.0-1.1) Eosinophils # (Auto) 0.0 x10^3/uL (0.0-0.7) Basophils # (Auto) 0.0 x10^3/uL (0.0-0.2) Sodium Level 140 mmol/L (136-145) Potassium Level 5.1 mmol/L (3.5-5.1) Chloride Level 99 mmol/L (98-107) Carbon Dioxide Level 27 mmol/L (21-32) Blood Urea Nitrogen 65 mg/dL (7-20) Creatinine 7.7 mg/dL (0.6-1.0) Estimated GFR (Cockcroft-Gault) 6.3 BUN/Creatinine Ratio 8 (6-20) Calcium Level 10.0 mg/dL (8.5-10.1) Magnesium Level 3.9 mg/dL (1.8-2.4) Total Bilirubin 0.4 mg/dL (0.2-1.0) Aspartate Amino Transf (AST/SGOT) 26 U/L (15-37) Alanine Aminotransferase (ALT/SGPT) 19 U/L (14-59) Alkaline Phosphatase 135 U/L (46-116) Creatine Kinase 125 U/L (26-192) Troponin I Quantitative < 0.017 ng/mL (0.000-0.055) IC-Arx-I-Type Natriuretic Peptide 1775 pg/mL (0-124) Total Protein 8.2 g/dL (6.4-8.2) Albumin 3.7 g/dL (3.4-5.0) Albumin/Globulin Ratio 0.8 (1.0-1.7) Test 04/21/19 12:25 04/21/19 15:23 04/21/19 16:50 04/21/19 23:40 Glucose (Fingerstick) 72 mg/dL (70-99) 130 mg/dL (70-99) 113 mg/dL (70-99) 96 mg/dL (70-99) Test 04/22/19 04:15 04/22/19 07:24 Triglycerides Level 130 mg/dL (0-150) Cholesterol Level 150 mg/dL (0-200) LDL Cholesterol, Calculated 54 mg/dL (0-100) VLDL Cholesterol, Calculated 26 mg/dL (0-40) Non-HDL Cholesterol Calculated 80 mg/dL (0-129) HDL Cholesterol 70 mg/dL (40-60) Cholesterol/HDL Ratio 2.1 Thyroid Stimulating Hormone (TSH) 3.294 uIU/mL (0.358-3.74) Glucose (Fingerstick) 229 mg/dL (70-99) Laboratory Tests Test 04/21/19 11:39 04/21/19 12:25 04/21/19 15:23 04/21/19 16:50 Glucose (Fingerstick) 51 mg/dL (70-99) 72 mg/dL (70-99) 130 mg/dL (70-99) 113 mg/dL (70-99) Test 04/21/19 23:40 04/22/19 04:15 04/22/19 07:24 Glucose (Fingerstick) 96 mg/dL (70-99) 229 mg/dL (70-99) Triglycerides Level 130 mg/dL (0-150) Cholesterol Level 150 mg/dL (0-200) LDL Cholesterol, Calculated 54 mg/dL (0-100) VLDL Cholesterol, Calculated 26 mg/dL (0-40) Non-HDL Cholesterol Calculated 80 mg/dL (0-129) HDL Cholesterol 70 mg/dL (40-60) Cholesterol/HDL Ratio 2.1 Thyroid Stimulating Hormone (TSH) 3.294 uIU/mL (0.358-3.74) Meds Current Medications Albuterol Sulfate (Ventolin Neb Soln) 2.5 mg RTQID NEB Last administered on 04/22/19at 07:08; Start 04/21/19 at 12:00 Calcium Acetate (Phoslo) 2,001 mg TIDWMEALS PO Last administered on 04/22/19at 08:22; Start 04/21/19 at 12:00 Darbepoetin Bobby (Aranesp) 60 mcg WEEKLYHS SQ Last administered on 04/22/19at 00:14; Start 04/21/19 at 21:00 Diphenhydramine HCl (Benadryl) 25 mg 1X PRN PRN IV ITCHING; Start 04/21/19 at 20:45; Stop 04/22/19 at 20:44 Diphenhydramine HCl (Benadryl) 25 mg 1X PRN PRN IV ITCHING; Start 04/21/19 at 20:45; Stop 04/22/19 at 20:44 Gabapentin (Neurontin) 300 mg HS PO Last administered on 04/22/19at 00:12; Start 04/21/19 at 21:00 Heparin Sodium (Porcine) (Heparin Sodium) 5,000 unit Q8HRS SQ Last administered on 04/22/19at 06:24; Start 04/21/19 at 14:00 Info (PHARMACY MONITORING -- do not chart) 1 each PRN DAILY PRN MC SEE COMMENTS; Start 04/21/19 at 20:45 Metoclopramide HCl (Reglan) 2.5 mg QIDACHS PO Last administered on 04/22/19at 08:23; Start 04/21/19 at 11:30 Metoprolol Succinate (Toprol Xl) 25 mg QHS PO Last administered on 04/22/19at 00:14; Start 04/21/19 at 21:00 Non-Formulary Medication (Levalbuterol Tartrate (Xopenex Hfa)) 2 puff QID IH ; Start 04/21/19 at 13:00; Status UNV Non-Formulary Medication (Naloxegol Oxalate (Movantik)) 25 mg DAILY PO ; Start 04/22/19 at 09:00; Status UNV Simvastatin (Zocor) 40 mg QHS PO Last administered on 04/22/19at 00:20; Start 04/21/19 at 21:00 Sodium Chloride 1,000 ml @ 400 mls/hr Q2H30M PRN IV PATENCY; Start 04/21/19 at 20:32; Stop 04/22/19 at 08:31; Status DC Sodium Chloride 1,000 ml @ 1,000 mls/hr Q1H PRN IV hypotension; Start 04/21/19 at 20:32; Stop 04/22/19 at 02:31; Status DC Assessment Assessment 1. Hypoglycemia. 2. Missed dialysis 3 times this week, not feeling well. 3. Insulin-dependent diabetes. 4. End-stage renal disease, on hemodialysis. 5. Old stroke. 6. Seizures. 7. Morbid obesity. 8. Hypertension. 9. Hyperlipidemia. 10. Sleep apnea. PLAN: Hypoglycemia- improving. Start Lantus 8 units subcutaneous daily from this morning. Blood sugar today is 221. Her home dose insulin is Lantus 15 units subcutaneous daily. Acute metabolic encephalopathy- improving. ESRD- patient had hemodialysis yesterday. Monitor blood sugars. If continues to remain stable and her mental status continues to improve I will discharge her tomorrow. Plan Plan For more details regarding further plans, please refer to the orders. MIRIAM RODRIGUEZ MD Apr 22, 2019 11:01
[2019-04-22] MEDS: INSULIN GLARGINE 300 UNITS/3 ML INSULN.PEN. SQ SCH (12:05)
--- NOTE | 2019-04-22 15:32 | PDOC ---
SUBJECTIVE ROS Stable OBJECTIVE Vital Signs Vital Signs Date Time Temp Pulse Resp B/P (MAP) Pulse Ox O2 Delivery O2 Flow Rate FiO2 04/22/19 15:08 97.0 75 14 118/47 (70) 97.0 04/22/19 12:06 Nasal Cannula 2.0 04/22/19 11:09 97 I & 0 Intake and Output 04/22/19 07:00 Intake Total 976 ml Balance 976 ml Intake Oral 530 ml IV Total 446 ml # Bowel Movements 1 PHYSICAL EXAM Physical Exam General - no distress HEENT - Om moist Lungs- CTA, Non labored Heart - S1 and S2 normal Abdomen - soft,Obese Neuro - Sleeping, easily arousable DIAGNOSIS/ASSESSMENT Assessment & Plan ESRD - On HD MWF Currently No indicatio, continue MWF schedule DM II- Hypoglycemia at presentation Per primary HTN- stable Anemia- On ZARINA Non Compliance COMMENT/RELEVANT DATA Meds Current Medications Medications (Trade) Dose Ordered Sig/Yumiko Start Time Stop Time Status Last Admin Dose Admin Acetaminophen/ Hydrocodone Bitart (Lortab 5/325) 1 tab PRN Q6HRS PRN 04/21/19 10:00 Albuterol Sulfate (Ventolin Neb Soln) 2.5 mg RTQID 04/21/19 12:00 04/22/19 12:05 2.5 MG Allopurinol (Zyloprim) 100 mg DAILY 04/21/19 10:30 04/22/19 08:23 100 MG Alprazolam (Xanax) 0.25 mg PRN BID PRN 04/21/19 10:00 Calcium Acetate (Phoslo) 2,001 mg TIDWMEALS 04/21/19 12:00 04/22/19 12:20 2,001 MG Cinacalcet (Sensipar) 30 mg DAILY 04/21/19 10:30 04/22/19 08:28 30 MG Citalopram Hydrobromide (CeleXA) 10 mg DAILY 04/21/19 10:30 04/22/19 08:25 10 MG Clonidine HCl (Catapres) 0.1 mg TID 04/21/19 10:30 04/22/19 08:23 0.1 MG Clopidogrel Bisulfate (Plavix) 75 mg DAILY 04/21/19 10:30 04/22/19 08:24 75 MG Cyclobenzaprine HCl (Flexeril) 10 mg BID 04/21/19 10:30 04/22/19 08:25 10 MG Darbepoetin Bobby (Aranesp) 60 mcg WEEKLYHS 04/21/19 21:00 04/22/19 00:14 60 MCG Dextrose (Dextrose 50%-Water Syringe) 12.5 gm PRN Q15MIN PRN 04/21/19 10:00 Diphenhydramine HCl (Benadryl) 25 mg 1X PRN PRN 04/21/19 20:45 04/22/19 20:44 Gabapentin (Neurontin) 300 mg HS 04/21/19 21:00 04/22/19 00:12 300 MG Heparin Sodium (Porcine) (Heparin Sodium) 5,000 unit Q8HRS 04/21/19 14:00 04/22/19 14:20 5,000 UNIT Info (PHARMACY MONITORING -- do not chart) 1 each PRN DAILY PRN 04/21/19 20:45 Insulin Glargine (Lantus) 8 units DAILY10 04/22/19 11:00 04/22/19 12:05 8 UNITS Levetiracetam (Keppra) 500 mg BID 04/21/19 10:30 04/22/19 08:24 500 MG Metoclopramide HCl (Reglan) 2.5 mg QIDACHS 04/21/19 11:30 04/22/19 11:56 2.5 MG Metoprolol Succinate (Toprol Xl) 25 mg QHS 04/21/19 21:00 04/22/19 00:14 25 MG Non-Formulary Medication (Levalbuterol Tartrate (Xopenex Hfa)) 2 puff QID 04/21/19 13:00 UNV Non-Formulary Medication (Naloxegol Oxalate (Movantik)) 25 mg DAILY 04/22/19 09:00 04/22/19 15:05 DC Sennosides (Senna) 8.6 mg BID 04/21/19 10:30 04/22/19 08:23 8.6 MG Simvastatin (Zocor) 40 mg QHS 04/21/19 21:00 04/22/19 00:20 40 MG Sodium Chloride 1,000 ml @ 400 mls/hr Q2H30M PRN 04/21/19 20:32 04/22/19 08:31 DC Vitamin B Complex/ Vitamin C (Makayla-Britton) 1 tab DAILY 04/21/19 10:30 04/22/19 08:24 1 TAB Lab Laboratory Tests Test 04/21/19 16:50 04/21/19 23:40 04/22/19 04:15 04/22/19 07:24 Glucose (Fingerstick) 113 mg/dL (70-99) 96 mg/dL (70-99) 229 mg/dL (70-99) Triglycerides Level 130 mg/dL (0-150) Cholesterol Level 150 mg/dL (0-200) LDL Cholesterol, Calculated 54 mg/dL (0-100) VLDL Cholesterol, Calculated 26 mg/dL (0-40) Non-HDL Cholesterol Calculated 80 mg/dL (0-129) HDL Cholesterol 70 mg/dL (40-60) Cholesterol/HDL Ratio 2.1 Thyroid Stimulating Hormone (TSH) 3.294 uIU/mL (0.358-3.74) Test 04/22/19 11:27 Glucose (Fingerstick) 244 mg/dL (70-99) Results All relevant outside records, renal labs, imaging studies, telemetry/EKG's were reviewed. LILI OCASIO MD Apr 22, 2019 15:32
--- NOTE | 2019-04-22 17:10 | NUR ---
Patient transferred to room 667 via bed at 1710 from second floor. ALE Aguayo aware patient has arrived.
--- NOTE | 2019-04-22 17:20 | NUR ---
Received pt from [facility], telemetry changed to our box, ADA diet. Shunt on left and right radial, blood pressure cuff on right calf, 135 BS finger stick, vitals stable. Food tray ordered. SA on tele rhythm. Read by Ting AGUILERA.
[2019-04-23 01:07] LABS: HEMOGLOBIN A1C 6.4 % (4.8-5.6)
[2019-04-23 03:15] VITALS: BP 125/49
[2019-04-23] MEDS: HEPARIN for SUB-Q USE 5,000 UNIT/ML VIAL. SQ SCH ×2 (06:33→14:05)
[2019-04-23 07:00] VITALS: BP 134/59
[2019-04-23] MEDS: ALBUTEROL SULFATE 2.5 MG/3 ML NEBU. NEB SCH ×3 (07:53→16:00)
[2019-04-23] MEDS: METOCLOPRAMIDE 5 MG TABLET. PO SCH ×3 (09:10→17:26)
[2019-04-23] MEDS: CALCIUM ACETATE 667 MG CAPSULE PO SCH ×3 (09:11→17:27)
[2019-04-23] MEDS: CITALOPRAM 10 MG TABLET. PO SCH (09:12)
[2019-04-23] MEDS: cloNIDine HCL 0.1 MG TABLET PO SCH ×2 (09:12→13:58)
[2019-04-23] MEDS: CYCLOBENZAPRINE 10 MG TABLET. PO SCH (09:12)
[2019-04-23] MEDS: SENNOSIDES 8.6 MG TABLET PO SCH (09:13)
[2019-04-23] MEDS: levETIRAcetam 500 MG TABLET PO SCH (09:13)
[2019-04-23] MEDS: CLOPIDOGREL BISULFATE 75 MG TABLET PO SCH (09:13)
[2019-04-23] MEDS: FOLIC/VIT B COMP W-C (RENAL) TABLET. PO SCH (09:13)
[2019-04-23] MEDS: ALLOPURINOL 100 MG TABLET. PO SCH (09:14)
[2019-04-23] MEDS: CINACALCET HCL 30 MG TABLET PO SCH (09:14)
[2019-04-23] MEDS ORDERED: INSU100I13 SQ (09:51)
[2019-04-23] MEDS: INSULIN GLARGINE 300 UNITS/3 ML INSULN.PEN. SQ SCH (10:10)
--- NOTE | 2019-04-23 10:49 | SNU/HH DC ---
DISCHARGE WITH HOME HEALTH DISCHARGE INFORMATION: Final Diagnosis: Problems Medical Problems: (1) Altered level of consciousness Status: Acute (2) ESRD (end stage renal disease) Status: Acute (3) Hypoglycemia Status: Acute (4) Missed dialysis Status: Acute (5) Morbid obesity Status: Acute Condition on Discharge: Stable HOME HEALTH: Face to Face: I certify this patient is under my care and that I, or a nurse practitioner or physician's assistant project manager working with me, had a face to face encounter that meets the physician face to face encounter requirements with this patient on April 23, 2019. Medical Complications: DJD RN For Eval/Treatment: Yes Pt Meets Homebound Status: Unsteady balance w/ amb, POST DISCHARGE ORDERS: Activity Instructions for Disc: Activity as tolerated (patient is wheelchair- bound) Weight Bearing Status after Di: Non weight bearing DIET AFTER DISCHARGE: Renal (ADA) DC TO SNF OTHER: diaslysis m,w,f. 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 Lobo in 5 days TREATMENT/EQUIPMENT ORDERS: Adaptive Equipment Issued: None, Wheelchair Discharge Respiratory Equipmen: Oxygen (2 L/m) CERTIFICATION STATEMENT: Certification Statement: Certification Statement: Based on the above finding, I certify that this patient is confined to the home and needs intermittent detention care, physical therapy and/or speech therapy, or continues to need occupational therapy.~ This patient is under my care, and I have initiated the establishment of the plan of care.~ This patient will be followed by myself or a community physician who will periodically review the plan of care. Home Meds Active Scripts Insulin Glargine,Hum.rec.anlog (LANTUS SOLOSTAR) 100 Unit/1 Ml Insuln.pen, 8 UNIT SQ DAILY08 for Diabetes for 30 Days, #5 ML 5 Refills Prov:MIRIAM RODRIGUEZ MD 04/23/19 Insulin Aspart (NOVOLOG FLEXPEN) 100 Unit/1 Ml Insuln.pen, 8 UNIT SQ TIDAC for Diabetes for 30 Days, #5 SYR 1 Refill Prov:MIRIAM RODRIGUEZ MD 03/27/19 Metoprolol Succinate (METOPROLOL SUCCINATE ( XL )) 25 Mg Tab.er.24h, 25 MG PO QHS for heart for 30 Days, #30 TAB.SR Prov:CARMITA LOBO MD 03/23/19 Reported Medications [phoslo] No Conflict Check, 2001 MG PO TID 01/16/17 Naloxegol Oxalate (Movantik) 25 Mg Tablet, 25 MG PO DAILY 01/16/17 Levalbuterol Tartrate (XOPENEX HFA) 15 Gm Hfa.aer.ad, 2 PUFF IH QID, #15 GM 01/16/17 Levetiracetam (KEPPRA) 500 Mg Tablet, 1 TAB PO BID, #180 TAB 3 Refills 07/20/15 Vit B Cmplx 3/Fa/Vit C/Biotin (VOL-CARE RX TABLET) 1 Each Tablet, 1 EACH PO DAILY 07/20/15 Clopidogrel Bisulfate (CLOPIDOGREL) 75 Mg Tablet, 1 TAB PO DAILY, #90 TAB 1 Refill 07/20/15 Alprazolam (ALPRAZOLAM) 0.25 Mg Tablet, 1 TAB PO PRN BID PRN for ANXIETY / AGITATION, #90 TAB 07/20/15 Citalopram Hydrobromide (CELEXA) 10 Mg Tablet, 1 TAB PO DAILY, #30 TAB 2 Refills 07/20/15 Allopurinol (ALLOPURINOL) 100 Mg Tablet, 1 TAB PO DAILY, #30 TAB 5 Refills 07/20/15 Cinacalcet Hcl (SENSIPAR) 30 Mg Tablet, 1 TAB PO DAILY, #30 TAB 11 Refills 07/20/15 Simvastatin (SIMVASTATIN) 40 Mg Tablet, 1 TAB PO QHS, #30 TAB 5 Refills 07/20/15 Gabapentin (GABAPENTIN ) 300 Mg Capsule, 1 CAP PO HS, #90 CAP 5 Refills 07/20/15 Sennosides (SENNA) 8.6 Mg Capsule, 8.6 MG PO BID 07/20/15 Cyclobenzaprine Hcl (CYCLOBENZAPRINE HCL) 10 Mg Tablet, 1 TAB PO BID, #90 TAB 07/20/15 Metoclopramide Hcl (REGLAN) 10 Mg Tablet, 5 MG PO QIDACHS, #120 TAB 0 Refills 07/20/15 Clonidine Hcl (CLONIDINE HCL) 0.1 Mg Tablet, 1 TAB PO TID, #30 TAB 2 Refills 07/20/15 Hydrocodone Bit/Acetaminophen (HYDROCODONE-APAP 5-325 ) 1 Each Tablet, 1 TAB PO PRN Q6HRS PRN for PAIN, #90 TAB 07/20/15 Discontinued Scripts Prednisone (PREDNISONE ) 10 Mg Tablet, 10 MG PO UD for PREDNISONE TAPER, #100 TAB 0 Refills Take 3 tablets by mouth twice a day for 3 days, then take 2 tablets by mouth twice a day for 3 days, then take 1 tablet by mouth twice a day for 3 days, then take 1 tablet by mouth daily x 3 days, then stop. Prov:MIRIAM RODRIGUEZ MD 03/26/19 Cephalexin (KEFLEX) 500 Mg Capsule, 1 CAP PO BID for uti, #14 CAP Prov:CARMITA LOBO MD 03/23/19 MIRIAM RODRIGUEZ MD Apr 23, 2019 10:49
--- NOTE | 2019-04-23 10:54 | PDOC ---
IM PROGRESS NOTES- Subjective Subjective Patient is alert and appropriate. Her mental status is back to baseline. She denies any dyspnea or pain. Objective Vitals Vital Signs Date Time Temp Pulse Resp B/P (MAP) Pulse Ox O2 Delivery O2 Flow Rate FiO2 04/23/19 09:12 68 134/59 04/23/19 08:00 Nasal Cannula 2.0 04/23/19 07:56 100 04/23/19 07:00 98.0 20 98.0 Input & Output Intake and Output 04/23/19 07:00 Intake Total 620 ml Balance 620 ml Intake Oral 620 ml # Voids 2 Physical Exam Physical Exam General appearance - alert, and in no distress, responding verbally. Mental Status - oriented to person, place, and time, affect appropriate to mood Head - normal Chest -decreased breath sounds at bases Heart - S1 and S2 normal Abdomen - soft, nontender, nondistended, no masses or organomegaly Neurological -very sleepy Musculoskeletal - no muscular tenderness noted Extremities - edema plus Skin - warm and dry Labs Laboratory Tests Test 04/21/19 11:39 04/21/19 12:25 04/21/19 15:23 04/21/19 16:50 Glucose (Fingerstick) 51 mg/dL (70-99) 72 mg/dL (70-99) 130 mg/dL (70-99) 113 mg/dL (70-99) Test 04/21/19 23:40 04/22/19 04:15 04/22/19 07:24 04/22/19 11:27 Glucose (Fingerstick) 96 mg/dL (70-99) 229 mg/dL (70-99) 244 mg/dL (70-99) Hemoglobin A1c 6.4 % (4.8-5.6) Triglycerides Level 130 mg/dL (0-150) Cholesterol Level 150 mg/dL (0-200) LDL Cholesterol, Calculated 54 mg/dL (0-100) VLDL Cholesterol, Calculated 26 mg/dL (0-40) Non-HDL Cholesterol Calculated 80 mg/dL (0-129) HDL Cholesterol 70 mg/dL (40-60) Cholesterol/HDL Ratio 2.1 Thyroid Stimulating Hormone (TSH) 3.294 uIU/mL (0.358-3.74) Test 04/22/19 18:01 04/23/19 00:14 04/23/19 07:33 Glucose (Fingerstick) 164 mg/dL (70-99) 174 mg/dL (70-99) 126 mg/dL (70-99) Laboratory Tests Test 04/22/19 11:27 04/22/19 18:01 04/23/19 00:14 04/23/19 07:33 Glucose (Fingerstick) 244 mg/dL (70-99) 164 mg/dL (70-99) 174 mg/dL (70-99) 126 mg/dL (70-99) Meds Current Medications Insulin Glargine (Lantus) 8 units DAILY10 SQ Last administered on 04/23/19at 10:10; Start 04/22/19 at 11:00 Assessment Assessment 1. Hypoglycemia. 2. Missed dialysis 3 times this week, not feeling well. 3. Insulin-dependent diabetes. 4. End-stage renal disease, on hemodialysis. 5. Old stroke. 6. Seizures. 7. Morbid obesity. 8. Hypertension. 9. Hyperlipidemia. 10. Sleep apnea. PLAN: Hypoglycemia- improving. Start Lantus 8 units subcutaneous daily from this morning. Blood sugar today is 221. Her home dose insulin is Lantus 15 units subcutaneous daily. Acute metabolic encephalopathy-better. ESRD- patient had hemodialysis yesterday. Monitor blood sugars. Blood sugars are much better. Patient is doing well. Okay to discharge home with home health services. Continue oxygen by nasal cannula 2 L/m. She is wheelchair-bound. Patient is noncompliant and because of that her long-term as well as short-term prognosis is poor. I'll decrease Lantus from 15 units subcutaneous daily to 8 units subcutaneous daily at home. Continue Humalog 8 units subcutaneous 3 times a day which patient states that she has been taking. Follow-up with Dr. Lobo in 5 days. Discharge management 35 minutes. Plan Plan For more details regarding further plans, please refer to the orders. MIRIAM RODRIGUEZ MD Apr 23, 2019 10:54
[2019-04-23 11:00] VITALS: BP 118/43
--- NOTE | 2019-04-23 12:28 | NUR ---
Discharge orders received. Discharge teaching provided over telephone to pt's daughter Tova Adam,understanding verbalized. Printed discharge instructions will be sent home with pt.Nursing die casting supervisor Reina to arrange Home Health. Ride home arranged with [facility] per bariatric stretcher at [phone].
[2019-04-23 15:00] VITALS: BP 137/60
--- NOTE | 2019-04-23 19:18 | NUR ---
Discharged to home with all belongings per [facility] Transportation per bariatric cart at 1730. Pt's daughter Tova Adam notified pt was on the way.
--- NOTE | 2019-04-26 14:56 | PDOC ---
Provider Note Provider Note Discharge summary dictated.#[id number]. CARMITA WALL MD Apr 26, 2019 14:56
--- NOTE | 2019-04-26 23:49 | DS ---
DATE OF DISCHARGE: 04/23/2019 REASON FOR ADMISSION TO THE HOSPITAL: Hypoglycemia, mental status changes. CONSULTATIONS: Dr. Egan. HOSPITAL COURSE: The patient is a 68-year-old female who has diabetes and she is on dialysis and she was confused. She missed dialysis during the weekend as the patient did not feel well. On Wednesday, she went, but she was confused, lethargic. Her sugar was low at 20. The patient was sent to the hospital, was given D50 and her condition improved after that. The patient was admitted to the hospital, was dialyzed while she is in the hospital. The patient takes 5 units of NovoLog and 15 of Levemir, which was on hold. She was started on sliding scale when the sugar went up to 200. On the whole, she is back to her usual and she was discharged. Her A1c was 6.4, which is good range. Cholesterol is 150. Thyroid 3.2, creatinine 7.[address] head shows old CVA. Chest x-ray negative. FINAL IMPRESSION: 1. Hypoglycemia. 2. Insulin-dependent diabetes. 3. End-stage renal disease, on dialysis. 4. Old cerebrovascular accident. 5. History of seizures. 6. Morbid obesity. DISPOSITION: Home. Continue dialysis 3 times a week and the patient was taken off from the long-acting insulin, just use sliding scale if the sugar is more than 200. CARMITA WALL MD DR: EDIE/ayan JOB#: [id number] / [id number]
== END 2019-04-23 17:30 | disposition home health service (06) | DRG 637 ==
LOC: ER 07:01 → 2 NORTH 07:16 → 6 SOUTH 04-22 17:03
PROVIDERS: ADMIT Internal Medicine; ATTEND Internal Medicine
PROC: 5A1D70Z Performance of Urinary Filtration, Intermittent, Less than 6 Hours Per Day (ICD-10-PCS; principal; 2019-04-21)
DX: E11.649 Type 2 diabetes mellitus with hypoglycemia without coma (principal); G93.41 Metabolic encephalopathy; I13.2 Hypertensive heart and chronic kidney disease with heart failure and with stage 5 chronic kidney disease, or end stage renal disease; Z68.42 Body mass index [BMI] 45.0-49.9, adult; N18.6 End stage renal disease; D64.9 Anemia, unspecified; E11.22 Type 2 diabetes mellitus with diabetic chronic kidney disease; E66.01 Morbid (severe) obesity due to excess calories; E78.5 Hyperlipidemia, unspecified; G47.30 Sleep apnea, unspecified; I50.9 Heart failure, unspecified; J44.9 Chronic obstructive pulmonary disease, unspecified; K21.9 Gastro-esophageal reflux disease without esophagitis; M06.9 Rheumatoid arthritis, unspecified; E21.3 Hyperparathyroidism, unspecified; F32.9 Major depressive disorder, single episode, unspecified; F41.9 Anxiety disorder, unspecified; M10.9 Gout, unspecified; Z79.4 Long term (current) use of insulin; Z82.3 Family history of stroke; Z82.49 Family history of ischemic heart disease and other diseases of the circulatory system; Z86.73 Personal history of transient ischemic attack (TIA), and cerebral infarction without residual deficits; Z91.19 Patient's noncompliance with other medical treatment and regimen; Z99.2 Dependence on renal dialysis; Z90.710 Acquired absence of both cervix and uterus; Z83.3 Family history of diabetes mellitus; Z99.3 Dependence on wheelchair
CPT/HCPCS: 36415; 70450; 71045; 80047; 80053; 80061; 82550; 82962; 83036; 83735; 83880; 84443; 84484; 85025; 93005; 94640; 94660; 94760; 96374; J0881; J1644; J1815; J7042; J7613; J8597; 99285-25

== ENCOUNTER → 2019-06-01 | Outpatient (CLI) | payer OTHER ==
--- NOTE | 2019-06-01 14:39 | RAD ---
Three-view left ankle and left foot radiographs 06/01/2019 CLINICAL HISTORY: Injury to the left foot and left ankle. AP, lateral and oblique digital radiographs of the left ankle and left foot were obtained. There is diffuse osteopenia of the visualized bony structures. An acute slightly comminuted oblique fracture of the distal diaphysis of the left tibia is seen. This does not extend to the ankle joint. The alignment of the fracture fragments is near-anatomic. No additional fracture of the left ankle is seen. No fracture or dislocation of the left foot is noted. Mild to moderate degenerative changes are seen throughout the interphalangeal joints of the left foot along with the first MTP joint. Mild enthesophyte formation is seen involving the posterior left calcaneus. IMPRESSION: Acute comminuted fracture of the distal left tibia as discussed above. Electronically signed by: Giancarlo Kinney MD (06/01/2019 2:36 PM) [facility]
== END | disposition home or self-care (01) ==
LOC: RAD 13:17
PROVIDERS: ATTEND Internal Medicine
DX: S82.255A Nondisplaced comminuted fracture of shaft of left tibia, initial encounter for closed fracture (principal); M85.872 Other specified disorders of bone density and structure, left ankle and foot; X58.XXXA Exposure to other specified factors, initial encounter; Y93.89 Activity, other specified; Y92.89 Other specified places as the place of occurrence of the external cause; Y99.8 Other external cause status
CPT/HCPCS: 73610; 73630

== ENCOUNTER 2019-09-21 19:00 | Inpatient (IN) | payer MEDICAID ==
[~2019-09-21] VITALS: Ht 165.1 cm; Wt 114.8 kg
[~2019-09-21 19:00] MED LIST changes: +AMOX1TAB10 PO; +PANT40TA77 PO; +SIMV40TA18 PO; -SIMV40TA3 PO
--- NOTE | 2019-09-21 19:22 | PHYS DOC ---
Past Medical History Past Medical History: COPD, CVA, Diabetes-Type II, Hypertension, Renal Disease, Renal Failure, Seizure, Other Past Surgical History: Other Additional Past Surgical Histo: Dialysis shunt R) upper arm being used, shunt in left arm-not used anymore. Alcohol Use: None Drug Use: None Adult General Chief Complaint Chief Complaint: HEADACHE HPI HPI 69-year-old female presents to the emergency Department complaints of headache. Patient went to hemodialysis today she finished around noon and subsequently had fallen hitting her head. She states she has had a headache since 1 PM. States is progressively getting worse. She is well describes neck pain. Patient has been nausea, vomiting, diarrhea, chest pain, shortness of breath. Nothing makes her symptoms worse, nothing makes her symptoms better. She does have history of hypertension, hemodialysis, history of CVA with left-sided residual. Upon further discussion she states she had difficulty speaking lasting about 15 min at home. Review of Systems Review of Systems Constitutional: Denies fever or chills [] Eyes: Denies change in visual acuity, redness, or eye pain [] HENT: Denies nasal congestion or sore throat [] Respiratory: Denies cough or shortness of breath [] Cardiovascular: No additional information not addressed in HPI [] GI: Denies abdominal pain, nausea, vomiting, bloody stools or diarrhea [] Musculoskeletal: Denies back pain or joint pain [] Integument: Denies rash or skin lesions [] Neurologic: + headache, no focal weakness or sensory changes, residual symptoms on left side from previous stroke [] All other systems were reviewed and found to be within normal limits, except as documented in this note. Current Medications Current Medications Current Medications Medications (Trade) Dose Ordered Sig/Yumiko Start Time Stop Time Status Last Admin Dose Admin Diphenhydramine HCl (Benadryl) 25 mg 1X ONCE 09/21/19 20:45 09/21/19 20:46 DC Ketorolac Tromethamine (Toradol Im) 60 mg 1X ONCE 09/21/19 20:45 09/21/19 20:46 DC Metoclopramide HCl (Reglan) 10 mg 1X ONCE 09/21/19 20:45 09/21/19 20:46 DC Allergies Allergies Allergies Coded Allergies Type Severity Reaction Last Updated Verified No Known Drug Allergies 02/07/19 No Physical Exam Physical Exam Constitutional: Well developed, well nourished, no acute distress, non-toxic appearance. [] HENT: Normocephalic, atraumatic, bilateral external ears normal, oropharynx moist, no oral exudates, nose normal. [] Eyes: PERRLA, EOMI, conjunctiva normal, no discharge. [] Neck: Normal range of motion, no tenderness, supple, no stridor. [] Cardiovascular:Heart rate regular rhythm, no murmur [] Lungs & Thorax: Bilateral breath sounds clear to auscultation [] Abdomen: Bowel sounds normal, soft, no tenderness, no masses, no pulsatile mass es. [] Skin: Warm, dry, no erythema, no rash. [] Extremities: No tenderness, no edema. [] Neurologic: Alert and oriented X 3, left side residual symptoms from previous stroke [] Psychologic: Affect normal, judgement normal, mood normal. [] Current Patient Data Vital Signs Vital Signs Date Time Temp Pulse Resp B/P (MAP) Pulse Ox O2 Delivery O2 Flow Rate FiO2 09/21/19 19:03 98.1 97 18 139/65 (89) 92 Room Air 98.1 EKG EKG [] Radiology/Procedures Radiology/Procedures [facility] [address] [place] [address] IMAGING REPORT Signed PATIENT: MARKUS HE ACCOUNT: [id number] : 1950 LOCATION: ER AGE: 69 SEX: F EXAM STATUS: REG ER ORD. PHYSICIAN: JETHRO CORRIGAN MD REASON: fall, headache, neck pain - no LOC PROCEDURE: CT HEAD AND CERVICAL SPINE WO STUDY: CT head and cervical spine without contrast INDICATION: Fall. Neck pain. Headache. COMPARISON: Most recent CT head from 04/21/2019 TECHNIQUE: Axial CT imaging through the head and cervical spine without the use of intravenous contrast. Sagittal and coronal reformats were obtained. One or more of the following individualized dose reduction techniques were utilized for this examination: 1. Automated exposure control 2. Adjustment of the mA and/or kV according to patient size 3. Use of iterative reconstruction technique. FINDINGS: CT head: No acute intracranial hemorrhage. No mass effect, midline shift or hydrocephalus. Redemonstrated prominent area of encephalomalacia in the right frontoparietal region. Remote left cerebellar hemisphere infarct. No CT evidence for an acute cortical infarction. Reduction white matter findings as can be seen in the setting of chronic microvascular ischemic change. Dense intracranial atherosclerotic calcifications. The globes are proptotic, unchanged from the prior. No depressed calvarial fracture. No layering fluid within the paranasal sinuses or mastoid air cells. CT cervical spine: Degraded study secondary to beam attenuation by overlying soft tissues. Taking into consideration the above limitations, no acute fracture seen throughout the cervical spine. No traumatic malalignment. Multilevel prominent ventral osteophytes with bony bridging anterior to C6-C7. 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 Moderate to potentially severe central canal stenosis at C2-C3 and more moderate central canal encroachment elsewhere throughout the cervical spine appearing mostly related to intrinsic narrowing. No severe bony encroachment on the neural foramina. No prevertebral hematoma is identified. Limited evaluation for a thyroid nodule given streak artifact. A stent is present within the right subclavian vein. Calcific atherosclerosis of both carotid bulbs. No apical pneumothorax. IMPRESSION: CT head: 1. No acute intracranial abnormality by CT. 2. Redemonstrated and unchanged left cerebellar hemisphere infarct as well as a prominent area of encephalomalacia at the right frontoparietal region. CT cervical spine: 1. Degraded study secondary to beam attenuation by overlying soft tissues. Taking this into consideration, no acute fracture seen throughout the cervical spine. 2. Moderate to potentially severe central canal stenosis at C2-C3 in part related to partial ossification of the posterior longitudinal ligament. Elsewhere, more moderate central canal stenosis mainly due to intrinsic narrowing/short pedicles. Electronically signed by: CALEB WRIGHT MD (09/21/2019 8:15 PM) [facility] DICTATED and SIGNED BY: CALEB WRIGHT MD DATE: 09/21/192014 [] Course & Med Decision Making Course & Med Decision Making Pertinent Labs and Imaging studies reviewed. (See chart for details) []69-year-old female presents to the emergency Department complaints of headache. Patient went to hemodialysis today she finished around noon and subsequently had fallen hitting her head. She states she has had a headache since 1 PM. States is progressively getting worse. She is well describes neck pain. Patient has been nausea, vomiting, diarrhea, chest pain, shortness of breath. Nothing makes her symptoms worse, nothing makes her symptoms better. She does have history of hypertension, hemodialysis, history of CVA with left-sided residual. CT head/neck without acute process Labs/imaging reviewed Discussed admit with patient Discussed with Dr. Wall Plan for for admit with neuro consult Dragon Disclaimer Dragon Disclaimer This electronic medical record was generated, in whole or in part, using a voice recognition dictation system. Departure Departure Impression: Primary Impression: Fall Additional Impressions: Headache TIA (transient ischemic attack) Hypertension Old cerebrovascular accident (CVA) without late effect Disposition: ADMITTED INPATIENT Admitting Physician: Luca Wall Condition: STABLE Referrals: LUCA WALL MD (PCP) Problem Qualifiers Primary Impression: Fall Encounter type: initial encounter Qualified Codes: W19.XXXA - Unspecified fall, initial encounter Additional Impressions: Headache Headache type: unspecified Hypertension Hypertension type: essential hypertension Qualified Codes: I10 - Essential (primary) hypertension JETHRO CORRIGAN MD Sep 21, 2019 19:22
--- NOTE | 2019-09-21 20:18 | RAD ---
STUDY: CT head and cervical spine without contrast INDICATION: Fall. Neck pain. Headache. COMPARISON: Most recent CT head from 04/21/2019 TECHNIQUE: Axial CT imaging through the head and cervical spine without the use of intravenous contrast. Sagittal and coronal reformats were obtained. One or more of the following individualized dose reduction techniques were utilized for this examination: 1. Automated exposure control 2. Adjustment of the mA and/or kV according to patient size 3. Use of iterative reconstruction technique. FINDINGS: CT head: No acute intracranial hemorrhage. No mass effect, midline shift or hydrocephalus. Redemonstrated prominent area of encephalomalacia in the right frontoparietal region. Remote left cerebellar hemisphere infarct. No CT evidence for an acute cortical infarction. Reduction white matter findings as can be seen in the setting of chronic microvascular ischemic change. Dense intracranial atherosclerotic calcifications. The globes are proptotic, unchanged from the prior. No depressed calvarial fracture. No layering fluid within the paranasal sinuses or mastoid air cells. CT cervical spine: Degraded study secondary to beam attenuation by overlying soft tissues. Taking into consideration the above limitations, no acute fracture seen throughout the cervical spine. No traumatic malalignment. Multilevel prominent ventral osteophytes with bony bridging anterior to C6-C7. 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 Moderate to potentially severe central canal stenosis at C2-C3 and more moderate central canal encroachment elsewhere throughout the cervical spine appearing mostly related to intrinsic narrowing. No severe bony encroachment on the neural foramina. No prevertebral hematoma is identified. Limited evaluation for a thyroid nodule given streak artifact. A stent is present within the right subclavian vein. Calcific atherosclerosis of both carotid bulbs. No apical pneumothorax. IMPRESSION: CT head: 1. No acute intracranial abnormality by CT. 2. Redemonstrated and unchanged left cerebellar hemisphere infarct as well as a prominent area of encephalomalacia at the right frontoparietal region. CT cervical spine: 1. Degraded study secondary to beam attenuation by overlying soft tissues. Taking this into consideration, no acute fracture seen throughout the cervical spine. 2. Moderate to potentially severe central canal stenosis at C2-C3 in part related to partial ossification of the posterior longitudinal ligament. Elsewhere, more moderate central canal stenosis mainly due to intrinsic narrowing/short pedicles. Electronically signed by: CALEB WRIGHT MD (09/21/2019 8:15 PM) [facility]
[2019-09-21] MEDS ORDERED: diphenhydrAMINE 50 MG/ML VIAL IM ONE (20:45)
[2019-09-21] MEDS ORDERED: KETOROLAC 60 MG/2 ML VIAL. IM ONE (20:45)
[2019-09-21] MEDS ORDERED: METOCLOPRAMIDE 10 MG TABLET. PO ONE (20:45)
[2019-09-21] MEDS ORDERED: ONDANSETRON PF 4 MG/2 ML VIAL. IV PRN (21:00)
[2019-09-21] MEDS ORDERED: ACETAMINOPHEN 325 MG TABLET. PO PRN (21:00)
[2019-09-21] MEDS ORDERED: INSU100I27 SQ (22:55)
[2019-09-21] MEDS ORDERED: INSU100I17 SQ (22:55)
[2019-09-21 23:00] VITALS: BP 164/62
[2019-09-21] MEDS ORDERED: HYDROcodone/APAP 5/325MG 1 TAB TABLET PO PRN (23:45)
[2019-09-22] MEDS: GABAPENTIN 300 MG CAPSULE. PO SCH ×2 (00:01→21:28)
[2019-09-22] MEDS: CYCLOBENZAPRINE 10 MG TABLET. PO SCH ×3 (00:01→21:26)
[2019-09-22] MEDS: METOCLOPRAMIDE 10 MG TABLET. PO SCH ×5 (00:01→21:27)
[2019-09-22] MEDS: SIMVASTATIN 40 MG TABLET. PO SCH ×2 (00:01→21:26)
[2019-09-22] MEDS: cloNIDine HCL 0.1 MG TABLET PO SCH ×4 (00:02→21:29)
[2019-09-22 03:45] VITALS: BP 117/51
[2019-09-22 05:38] LABS: BASO % 0 % (0-3); EOS # 0.1 x10^3/uL (0.0-0.7); EOS % 3 % (0-3); HEMOGLOBIN 11.2 g/dL (12.0-15.5); LYMPH # 1.7 x10^3/uL (1.0-4.8); LYMPH % 43 % (24-48); MEAN CORPUSCULAR HEMOGLOBIN 33 pg (25-35); MEAN CORPUSCULAR HGB CONC 32 g/dL (31-37); MEAN CORPUSCULAR VOLUME 102 fL (79-100); MONO # 0.5 x10^3/uL (0.0-1.1); MONO % 12 % (0-9); NEUT # 1.6 x10^3/uL (1.8-7.7); NEUT % 41 % (31-73); PLATELET COUNT 136 x10^3/uL (140-400); RED BLOOD COUNT 3.44 x10^6/uL (3.50-5.40); RED CELL DISTRIBUTION WIDTH 14.8 % (11.5-14.5); WHITE BLOOD COUNT 3.9 x10^3/uL (4.0-11.0)
[2019-09-22 06:11] LABS: ALBUMIN 2.4 g/dL (3.4-5.0); ALBUMIN/GLOBULIN RATIO 0.6 (1.0-1.7); CALCIUM 8.7 mg/dL (8.5-10.1); CREATININE 4.3 mg/dL (0.6-1.0); GFR 12.4; POTASSIUM 4.8 mmol/L (3.5-5.1); TOTAL BILIRUBIN 0.3 mg/dL (0.2-1.0); TOTAL PROTEIN 6.5 g/dL (6.4-8.2)
[2019-09-22] MEDS: PANTOPRAZOLE 40 MG TABLET.DR. PO SCH (06:45)
[2019-09-22 07:00] VITALS: BP 104/53
[2019-09-22] MEDS: INSULIN LISPRO 300 UNITS/3 ML VIAL. SQ SCH ×2 (08:00→17:00)
[2019-09-22] MEDS: ALBUTEROL SULFATE 2.5 MG/3 ML NEBU. NEB SCH ×2 (08:23→12:00)
[2019-09-22] MEDS ORDERED: ACETAMINOPHEN 325 MG TABLET. PO PRN (08:30)
[2019-09-22] MEDS ORDERED: ACETAMINOPHEN 650 MG SUPP.RECT. PR PRN (08:30)
[2019-09-22] MEDS ORDERED: ASPIRIN RECTAL 300 MG SUPP. PR PRN (08:30)
[2019-09-22] MEDS ORDERED: IV NORMAL SALINE 1000ML BAG 1,000 ML IV PRN ×4 (09:03→10:00)
[2019-09-22] MEDS ORDERED: ALBUMIN HUMAN 25% 200 ML IV PRN ×2 (09:15→10:00)
[2019-09-22] MEDS ORDERED: DIALYSIS PATIENT. MC PRN ×4 (09:15→10:00)
[2019-09-22] MEDS: levETIRAcetam 500 MG TABLET PO SCH ×3 (09:38→21:26)
[2019-09-22] MEDS: SENNOSIDES 8.6 MG TABLET PO SCH ×2 (09:39→21:27)
[2019-09-22] MEDS: ASPIRIN ENTERIC COATED 325 MG TABLET.DR. PO SCH (09:41)
[2019-09-22] MEDS ORDERED: DEXTROSE 50% 25 GM / 50ML DISP.SYRIN. IV PRN (10:15)
[2019-09-22] MEDS ORDERED: ALPRAZolam 0.25 MG TABLET PO PRN (10:15)
--- NOTE | 2019-09-22 10:35 | HP ---
ADMIT DATE: 09/21/2019 LOCATION: [facility]. REASON FOR ADMISSION TO THE HOSPITAL: 1. Headache. 2. Problems with speech. HISTORY OF PRESENT ILLNESS: The patient is a 69-year-old female. She has end-stage renal disease, on hemodialysis. She went to dialysis yesterday, then she says she had a fall, hitting her head and she had severe headache and she also had problem with speech. She was brought to the hospital, had a CT scan with no bleed, was admitted for further observation. Neurology was consulted. PAST MEDICAL HISTORY: She has a history of previous stroke with left hemiparesis, history of seizures, hypertension, hyperlipidemia, diabetes, anxiety, and depression. PAST SURGICAL HISTORY: AV shunt. ALLERGIES: BENADRYL. MEDICATIONS AT HOME: The patient is on allopurinol 100 mg daily, Xanax 0.25, Sensipar 30 mg daily, Celexa 20 mg daily, Plavix 75 mg daily, metoprolol 25 mg daily, Movantik 25 mg daily, B complex daily, clonidine 0.1 three times a day, Flexeril 10 mg twice a day, gabapentin 300 mg at bedtime, hydrocodone 5/325 q.6, insulin 5 units twice a day, Levemir 18 units at bedtime, Xopenex breathing treatment, Keppra 500 mg twice a day, Reglan 10 mg 4 times a day, Protonix 40 mg daily, senna daily, simvastatin 40 mg daily. PERSONAL HISTORY: Ex-smoker in the past. Denies smoking, alcohol or drug abuse. SOCIAL HISTORY: Lives at home with her daughter. She goes to dialysis on Wednesday, Wednesday and Wednesday except this week, it was Wednesday because they are renovating the dialysis center. FAMILY HISTORY: Positive for diabetes and heart disease. REVIEW OF SYSTEMS: Feels much better. No headache. Her speech is back to normal. PHYSICAL EXAMINATION: GENERAL: The patient is extremely obese, weighs 114 kg. HEENT: Head is atraumatic. Pupils equal. Oral cavity, no congestion. NECK: Short. CHEST: Symmetrical. CARDIOVASCULAR: S1, S2. LUNGS: Clear. ABDOMEN: Soft. Bowel sounds were present, no masses palpable. EXTERNAL GENITALIA: No Phillips. RECTAL: Deferred. EXTREMITIES: Moving right upper extremity, lower extremity. Left upper and lower extremities from old stroke have been paralyzed. Speech is normal. LABORATORY DATA: White count 4, hemoglobin 11, platelets 136. Electrolytes: Sodium 140, potassium 4.8, chloride 100, bicarbonate 32, BUN 26, creatinine 4.3, glucose 83. LFTs were normal. CT head, no intracranial abnormality and history of right frontoparietal infarct, old and left cerebellar infarct. CT of the cervical spine, C2-C3 central canal stenosis. FINAL IMPRESSION: 1. Severe headache. 2. Problems with speech, resolved, possible transient ischemic attack. 3. Old stroke with left hemiparesis. 4. End-stage renal disease, on dialysis on Wednesday, Wednesday and Wednesday. 5. Insulin-dependent diabetes. 6. Morbid obesity. 7. History of seizures, stable. PLAN: At this time, was admitted to the hospital, seen by Neurology. CTA was ordered by Neurology and will get dialyzed tomorrow and probably could be discharged home tomorrow. Continue Plavix, baby aspirin and seizure medications. CARMITA WALL MD DR: EDIE/nts JOB#: [id number] / [id number]
--- NOTE | 2019-09-22 10:54 | CARD ---
MR#: [id number] Date of Study: 09/22/2019 Ordering Physician: PATRICIA SILVEIRA, Referring Physician: PATRICIA SILVEIRA, Tech: Chela Palacios [facility] APPROVED REPORT EXAM: LIMITED Two-dimensional and M-mode echocardiogram. Other Information Quality : AverageHR: 72bpm Rhythm : Other INDICATION CVA/TIA 2D DIMENSIONS RVDd3.2 (2.9-3.5cm)Left Atrium(2D)3.9 (1.6-4.0cm) IVSd1.4 (0.7-1.1cm)Aortic Root(2D)2.6 (2.0-3.7cm) LVDd4.6 (3.9-5.9cm)PWd1.3 (0.7-1.1cm) LVDs2.9 (2.5-4.0cm)FS (%) 35.9 % SV62.2 mlLVEF(%)65.5 (>50%) M-Mode DIMENSIONS Left Atrium(MM)3.73 (2.5-4.0cm)Aortic Root3.30 (2.2-3.7cm) LEFT VENTRICLE The left ventricle is normal size. There is mild concentric left ventricular hypertrophy. The left ve ntricular systolic function is normal. The Ejection Fraction is 60-65%. There is normal LV segmental wall motion. RIGHT VENTRICLE The right ventricle is normal size. There is normal right ventricular wall thickness. The right ventr icular systolic function is normal. ATRIA The left atrium size is normal. The right atrium size is normal. The interatrial septum is intact wit h no evidence for an atrial septal defect or patent foramen ovale as noted on 2-D or Doppler imaging. AORTIC VALVE The aortic valve is trileaflet. The aortic valve is mildly calcified. MITRAL VALVE Mitral annular calcification is mild to moderate. There is no evidence of mitral valve prolapse. TRICUSPID VALVE The tricuspid valve is normal in structure and function. PULMONIC VALVE The pulmonic valve is not well visualized. GREAT VESSELS The aortic root is normal in size. The ascending aorta is normal in size. PERICARDIAL EFFUSION There is no evidence of significant pericardial effusion. Critical Notification Critical Value: No <Conclusion> The left ventricular systolic function is normal. The Ejection Fraction is 60-65%. There is normal LV segmental wall motion. There is no evidence of significant pericardial effusion. Signed by : Lamont Kiser, Electronically Approved : 09/22/2019 10:54:20
[2019-09-22 11:00] VITALS: BP 115/51
[2019-09-22] MEDS: CINACALCET HCL 30 MG TABLET PO SCH (11:07)
[2019-09-22] MEDS: CLOPIDOGREL BISULFATE 75 MG TABLET PO SCH (11:07)
[2019-09-22] MEDS: CITALOPRAM 10 MG TABLET. PO SCH (11:07)
[2019-09-22] MEDS: ALLOPURINOL 100 MG TABLET. PO SCH (11:09)
[2019-09-22] MEDS ORDERED: CONTRAST GIVEN. MC PRN (11:15)
[2019-09-22] MEDS ORDERED: IOHEXOL 300 MG/ML 100ML VIAL. IV ONE (11:15)
--- NOTE | 2019-09-22 11:18 | EKG ---
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
[2019-09-22] MEDS ORDERED: IOHEXOL 350 MG/ML 100 ML VIAL. IV ONE (11:30)
--- NOTE | 2019-09-22 11:44 | NUR ---
SW following pt for anticipated dc needs. Chart reviewed and JOSE JUAN RN. Pt she lives at home with daughters. PT/OT ordered and pending. Pt is dependent for ADL's and goes to [facility], phone: [phone], fax: [phone]. Discussed with HD clinic and pt was at clinic yesterday. Will continue to follow pending dc needs..
--- NOTE | 2019-09-22 11:57 | RAD ---
PORTABLE CHEST 1V History: CVA Comparison: July 17, 2019 Findings: Elevation of left hemidiaphragm. Patchy left basilar opacity. Small left pleural effusion. Right upper chest vascular stent. Unchanged heart size. No pneumothorax. Impression: 1. Small left pleural effusion with adjacent opacity, may represent atelectasis or consolidation. Electronically signed by: Jacky Mas DO (09/22/2019 11:54 AM) [facility]
--- NOTE | 2019-09-22 12:10 | PDOC2 ---
NEUROLOGY CONSULT Date of Admission Date of Admission DATE: 09/22/19 TIME: 11:56 Reason for Consult Reason for Consult: Headache, aphasia Referring Physician Referring Physician: Dr. Lobo Source Source: Chart review, Patient History of Present Illness History of Present Illness The patient is a 69-year-old right-handed female who went to dialysis yesterday and then went home, fell, hit her head, had headache, and for about 15 minutes had trouble speaking. There is history of right hemispheric stroke with left hemiparesis. She is wheelchair-bound. I saw her in February for right-sided tremors. MRI showed no new stroke, MR venogram was negative, MR angiogram showed some possible stenosis in the right supraclinoid carotid, electroencephalogram showed diffuse slowing, no epileptic activity. She feels fine now. Past Medical History Cardiovascular: CHF, HTN, Other (deep vein thrombosis) Pulmonary: Asthma, Bronchitis, COPD, Other (sleep apnea) CENTRAL NERVOUS SYSTEM: CVA, Seizure (negative EEG) GI: Constipation, GERD Psych: Anxiety, Depression Rheumatologic: Gout, Rheumatoid arthritis Renal/: Chronic renal failure (on dialysis) Endocrine: Diabetes, Hyperparathyroidism Past Surgical History Past Surgical History: Cholecystectomy, , Hysterectomy, Other (pannus removal, dialysis catheter placement) Family History Family History: No pertinent hx Social History Social History , quit smoking, no alcohol, lives at home Current Medications Current Medications Current Medications Ketorolac Tromethamine (Toradol Im) 60 mg 1X ONCE IM Last administered on 09/21/19at 21:05; Start 09/21/19 at 20:45; Stop 09/21/19 at 20:46; Status DC Diphenhydramine HCl (Benadryl) 25 mg 1X ONCE IM ; Start 09/21/19 at 20:45; Stop 09/21/19 at 20:46; Status DC Metoclopramide HCl (Reglan) 10 mg 1X ONCE PO Last administered on 09/21/19at 21:00; Start 09/21/19 at 20:45; Stop 09/21/19 at 20:46; Status DC Ondansetron HCl (Zofran) 4 mg PRN Q8HRS PRN IV NAUSEA/VOMITING; Start 09/21/19 at 21:00; Stop 09/22/19 at 20:59 Acetaminophen (Tylenol) 650 mg PRN Q4HRS PRN PO FEVER; Start 09/21/19 at 21:00; Stop 09/22/19 at 08:22; Status DC Clonidine HCl (Catapres) 0.1 mg TID PO Last administered on 09/22/19at 09:39; Start 09/21/19 at 23:45 Cyclobenzaprine HCl (Flexeril) 10 mg BID PO Last administered on 09/22/19at 09:39; Start 09/21/19 at 23:45 Gabapentin (Neurontin) 300 mg HS PO Last administered on 09/22/19at 00:01; Start 09/21/19 at 23:45 Acetaminophen/ Hydrocodone Bitart (Lortab 5/325) 1 tab PRN Q6HRS PRN PO PAIN Last administered on 09/22/19at 00:04; Start 09/21/19 at 23:45 Levetiracetam (Keppra) 500 mg BID PO Last administered on 09/22/19at 09:38; Start 09/21/19 at 23:45 Metoclopramide HCl (Reglan) 5 mg QIDACHS PO Last administered on 09/22/19at 11:09; Start 09/21/19 at 23:45 Pantoprazole Sodium (Protonix) 40 mg DAILYAC PO Last administered on 09/22/19at 06:45; Start 09/22/19 at 07:30 Simvastatin (Zocor) 40 mg QHS PO Last administered on 09/22/19at 00:01; Start 09/21/19 at 23:45 Albuterol Sulfate (Ventolin Neb Soln) 2.5 mg RTQID NEB Last administered on 09/22/19at 08:23; Start 09/22/19 at 08:00; Stop 09/29/19 at 07:59 Insulin Human Lispro (HumaLOG) 5 units BIDWMEALS SQ ; Start 09/22/19 at 08:00 Non-Formulary Medication (Insulin Detemir (Levemir Flextouch)) 8 unit HS SQ ; Start 09/22/19 at 21:00; Status UNV Sennosides (Senna) 8.6 mg BID PO Last administered on 09/22/19at 09:39; Start 09/22/19 at 09:00 Insulin Glargine (Lantus Syringe) 8 unit QHS SQ ; Start 09/22/19 at 21:00 Acetaminophen (Tylenol) 650 mg PRN Q6HRS PRN PO TEMP > 100.4F; Start 09/22/19 at 08:30 Acetaminophen (Tylenol Supp) 650 mg PRN Q4HRS PRN MA TEMP > 100.4F; Start 09/22/19 at 08:30 Aspirin (Ecotrin) 325 mg DAILYWBKFT PO Last administered on 09/22/19at 09:41; Start 09/22/19 at 08:30 Aspirin (Aspirin Rectal Supp) 300 mg PRN DAILY PRN MA IF UNABLE TO TAKE PO; Start 09/22/19 at 08:30 Sodium Chloride 1,000 ml @ 1,000 mls/hr Q1H PRN IV hypotension; Start 09/22/19 at 09:03; Stop 09/22/19 at 09:50; Status DC Albumin Human 200 ml @ 200 mls/hr 1X PRN PRN IV Hypotension; Start 09/22/19 at 09:15; Stop 09/22/19 at 09:50; Status DC Sodium Chloride 1,000 ml @ 400 mls/hr Q2H30M PRN IV PATENCY; Start 09/22/19 at 09:03; Stop 09/22/19 at 09:50; Status DC Info (PHARMACY MONITORING -- do not chart) 1 each PRN DAILY PRN MC SEE COMMENTS; Start 09/22/19 at 09:15; Stop 09/22/19 at 09:50; Status DC Info (PHARMACY MONITORING -- do not chart) 1 each PRN DAILY PRN MC SEE COMMENTS; Start 09/22/19 at 09:15; Status UNV Sodium Chloride 1,000 ml @ 1,000 mls/hr Q1H PRN IV hypotension; Start 09/22/19 at 10:00; Stop 09/22/19 at 15:59 Albumin Human 200 ml @ 200 mls/hr 1X PRN PRN IV Hypotension; Start 09/22/19 at 10:00; Stop 09/22/19 at 15:59 Sodium Chloride 1,000 ml @ 400 mls/hr Q2H30M PRN IV PATENCY; Start 09/22/19 at 10:00; Stop 09/22/19 at 21:59 Info (PHARMACY MONITORING -- do not chart) 1 each PRN DAILY PRN MC SEE COMMENTS; Start 09/22/19 at 10:00 Info (PHARMACY MONITORING -- do not chart) 1 each PRN DAILY PRN MC SEE COMMENTS; Start 09/22/19 at 10:00; Status UNV Allopurinol (Zyloprim) 100 mg DAILY PO Last administered on 09/22/19at 11:09; Start 09/22/19 at 11:00 Alprazolam (Xanax) 0.25 mg PRN BID PRN PO ANXIETY / AGITATION; Start 09/22/19 at 10:15 Cinacalcet (Sensipar) 30 mg DAILY PO Last administered on 09/22/19at 11:07; Start 09/22/19 at 11:00 Citalopram Hydrobromide (CeleXA) 10 mg DAILY PO Last administered on 09/22/19at 11:07; Start 09/22/19 at 11:00 Clopidogrel Bisulfate (Plavix) 75 mg DAILY PO Last administered on 09/22/19at 11:07; Start 09/22/19 at 11:00 Metoprolol Succinate (Toprol Xl) 25 mg QHS PO ; Start 09/22/19 at 21:00 Non-Formulary Medication (Naloxegol Oxalate (Movantik)) 25 mg DAILY PO ; Start 09/23/19 at 09:00; Status UNV Non-Formulary Medication (Vit B Cmplx 3/ Fa/Vit C/Biotin (Vol-Care Rx Tablet)) 1 each DAILY PO ; Start 09/23/19 at 09:00; Status UNV Calcium Acetate (Phoslo) 2,001 mg TIDWMEALS PO ; Start 09/22/19 at 12:00 Dextrose (Dextrose 50%-Water Syringe) 12.5 gm PRN Q15MIN PRN IV SEE COMMENTS; Start 09/22/19 at 10:15 Heparin Sodium (Porcine) (Heparin Sodium) 5,000 unit Q8HRS SQ ; Start 09/22/19 at 14:00 Iohexol (Omnipaque 300 Mg/ml) 75 ml 1X ONCE IV ; Start 09/22/19 at 11:15; Stop 09/22/19 at 11:16; Status DC Info (CONTRAST GIVEN -- Rx MONITORING) 1 each PRN DAILY PRN MC SEE COMMENTS; Start 09/22/19 at 11:15; Stop 09/24/19 at 11:14 Iohexol (Omnipaque 350 Mg/ml) 75 ml 1X ONCE IV ; Start 09/22/19 at 11:30; Stop 09/22/19 at 11:31; Status DC Active Scripts Active Pantoprazole Sodium (Pantoprazole Sodium) 40 Mg Tablet.dr 40 Mg PO DAILYAC 30 Days Metoprolol Succinate ( Xl ) (Metoprolol Succinate) 25 Mg Tab.er.24h 25 Mg PO QHS 30 Days Reported Levemir Flextouch (Insulin Detemir) 100 Unit/1 Ml Insuln.pen 8 Unit SQ HS Novolog Flexpen (Insulin Aspart) 100 Unit/1 Ml Insuln.pen 5 Unit SQ BIDWMEALS [phoslo] 2,001 Mg PO TID Movantik (Naloxegol Oxalate) 25 Mg Tablet 25 Mg PO DAILY Xopenex Hfa (Levalbuterol Tartrate) 15 Gm Hfa.aer.ad 2 Puff IH QID Keppra (Levetiracetam) 500 Mg Tablet 1 Tab PO BID Vol-Care Rx Tablet (Vit B Cmplx 3/Fa/Vit C/Biotin) 1 Each Tablet 1 Each PO DAILY Clopidogrel (Clopidogrel Bisulfate) 75 Mg Tablet 1 Tab PO DAILY Alprazolam 0.25 Mg Tablet 1 Tab PO PRN BID PRN Celexa (Citalopram Hydrobromide) 10 Mg Tablet 1 Tab PO DAILY Allopurinol 100 Mg Tablet 1 Tab PO DAILY Sensipar (Cinacalcet Hcl) 30 Mg Tablet 1 Tab PO DAILY Simvastatin 40 Mg Tablet 1 Tab PO QHS Gabapentin (Gabapentin) 300 Mg Capsule 1 Cap PO HS Senna (Sennosides) 8.6 Mg Capsule 8.6 Mg PO BID Cyclobenzaprine Hcl 10 Mg Tablet 1 Tab PO BID Reglan (Metoclopramide Hcl) 10 Mg Tablet 5 Mg PO QIDACHS Clonidine Hcl 0.1 Mg Tablet 1 Tab PO TID Hydrocodone-Apap 5-325 (Hydrocodone Bit/Acetaminophen) 1 Each Tablet 1 Tab PO PRN Q6HRS PRN Allergies Allergies: Coded Allergies: diphenhydramine (Verified Allergy, Intermediate, 09/21/19) Alla MUÑOZ Review of System Negative for fever, chills, weight loss, shortness of breath, chest pain, indigestion, hematochezia, melena, and dysuria. Full 14-point review of systems is negative. Physical Exam Physical Examination General: Well-developed, well-nourished black female in no acute distress HEENT: Normocephalic andatraumatic. Tympanic membranes clear.Temporal arteriespulsatile and nontender.Fundoscopic exam unremarkable Neck: Supple without bruit, no meningismus Musculoskeletal: Stability:see neurologic. Gait exam:see neurologic. Tone:see neurologic.Strength:see neurologic. Neurological: Mental Status:orientation, memory, attention span/concentration, language, fund of knowledge: Knows name of hospital, but not date or name of president. Speech is dysarthric. She is hesitant with naming. Cranial Nerves:Pupils equal and reactive to light, extraocular movements areintact, visual michael are full to confrontation. Facial sensation is normal. There is a left central facial weakness. Vestibulo-ocular reflex is intact. . All other cranial related problems are negative except as mentioned before.Reflexes:2+ and symmetric with flexor plantar responses. Motor:Left spastic hemiparesis, 2/5. Coordina tion:Normal [id number]. Gait:Not tested. Sensory:Normal pinprick, vibration, light touch, proprioception. Vitals VITALS Vital Signs Date Time Temp Pulse Resp B/P (MAP) Pulse Ox O2 Delivery O2 Flow Rate FiO2 09/22/19 09:39 62 104/53 09/22/19 08:24 97 Nasal Cannula 2.0 09/22/19 07:00 97.5 20 97.5 Labs Labs Laboratory Tests Test 09/21/19 23:58 09/22/19 04:19 09/22/19 08:10 Glucose (Fingerstick) 83 mg/dL (70-99) 80 mg/dL (70-99) White Blood Count 3.9 x10^3/uL (4.0-11.0) Red Blood Count 3.44 x10^6/uL (3.50-5.40) Hemoglobin 11.2 g/dL (12.0-15.5) Hematocrit 35.0 % (36.0-47.0) Mean Corpuscular Volume 102 fL (79-100) Mean Corpuscular Hemoglobin 33 pg (25-35) Mean Corpuscular Hemoglobin Concent 32 g/dL (31-37) Red Cell Distribution Width 14.8 % (11.5-14.5) Platelet Count 136 x10^3/uL (140-400) Neutrophils (%) (Auto) 41 % (31-73) Lymphocytes (%) (Auto) 43 % (24-48) Monocytes (%) (Auto) 12 % (0-9) Eosinophils (%) (Auto) 3 % (0-3) Basophils (%) (Auto) 0 % (0-3) Neutrophils # (Auto) 1.6 x10^3/uL (1.8-7.7) Lymphocytes # (Auto) 1.7 x10^3/uL (1.0-4.8) Monocytes # (Auto) 0.5 x10^3/uL (0.0-1.1) Eosinophils # (Auto) 0.1 x10^3/uL (0.0-0.7) Basophils # (Auto) 0.0 x10^3/uL (0.0-0.2) Sodium Level 140 mmol/L (136-145) Potassium Level 4.8 mmol/L (3.5-5.1) Chloride Level 100 mmol/L (98-107) Carbon Dioxide Level 32 mmol/L (21-32) Anion Gap 8 (6-14) Blood Urea Nitrogen 26 mg/dL (7-20) Creatinine 4.3 mg/dL (0.6-1.0) Estimated GFR (Cockcroft-Gault) 12.4 BUN/Creatinine Ratio 6 (6-20) Glucose Level 116 mg/dL (70-99) Calcium Level 8.7 mg/dL (8.5-10.1) Total Bilirubin 0.3 mg/dL (0.2-1.0) Aspartate Amino Transf (AST/SGOT) 18 U/L (15-37) Alanine Aminotransferase (ALT/SGPT) 8 U/L (14-59) Alkaline Phosphatase 107 U/L (46-116) Total Protein 6.5 g/dL (6.4-8.2) Albumin 2.4 g/dL (3.4-5.0) Albumin/Globulin Ratio 0.6 (1.0-1.7) Laboratory Tests Test 09/21/19 23:58 09/22/19 04:19 11/1/19 08:10 Glucose (Fingerstick) 83 mg/dL (70-99) 80 mg/dL (70-99) White Blood Count 3.9 x10^3/uL (4.0-11.0) Red Blood Count 3.44 x10^6/uL (3.50-5.40) Hemoglobin 11.2 g/dL (12.0-15.5) Hematocrit 35.0 % (36.0-47.0) Mean Corpuscular Volume 102 fL (79-100) Mean Corpuscular Hemoglobin 33 pg (25-35) Mean Corpuscular Hemoglobin Concent 32 g/dL (31-37) Red Cell Distribution Width 14.8 % (11.5-14.5) Platelet Count 136 x10^3/uL (140-400) Neutrophils (%) (Auto) 41 % (31-73) Lymphocytes (%) (Auto) 43 % (24-48) Monocytes (%) (Auto) 12 % (0-9) Eosinophils (%) (Auto) 3 % (0-3) Basophils (%) (Auto) 0 % (0-3) Neutrophils # (Auto) 1.6 x10^3/uL (1.8-7.7) Lymphocytes # (Auto) 1.7 x10^3/uL (1.0-4.8) Monocytes # (Auto) 0.5 x10^3/uL (0.0-1.1) Eosinophils # (Auto) 0.1 x10^3/uL (0.0-0.7) Basophils # (Auto) 0.0 x10^3/uL (0.0-0.2) Sodium Level 140 mmol/L (136-145) Potassium Level 4.8 mmol/L (3.5-5.1) Chloride Level 100 mmol/L (98-107) Carbon Dioxide Level 32 mmol/L (21-32) Anion Gap 8 (6-14) Blood Urea Nitrogen 26 mg/dL (7-20) Creatinine 4.3 mg/dL (0.6-1.0) Estimated GFR (Cockcroft-Gault) 12.4 BUN/Creatinine Ratio 6 (6-20) Glucose Level 116 mg/dL (70-99) Calcium Level 8.7 mg/dL (8.5-10.1) Total Bilirubin 0.3 mg/dL (0.2-1.0) Aspartate Amino Transf (AST/SGOT) 18 U/L (15-37) Alanine Aminotransferase (ALT/SGPT) 8 U/L (14-59) Alkaline Phosphatase 107 U/L (46-116) Total Protein 6.5 g/dL (6.4-8.2) Albumin 2.4 g/dL (3.4-5.0) Albumin/Globulin Ratio 0.6 (1.0-1.7) Images Images CT head and cervical spine without contrast INDICATION: Fall. Neck pain. Headache. COMPARISON: Most recent CT head from 04/21/2019 TECHNIQUE: Axial CT imaging through the head and cervical spine without the use of intravenous contrast. Sagittal and coronal reformats were obtained. One or more of the following individualized dose reduction techniques were utilized for this examination: 1. Automated exposure control 2. Adjustment of the mA and/or kV according to patient size 3. Use of iterative reconstruction technique. FINDINGS: CT head: No acute intracranial hemorrhage. No mass effect, midline shift or hydrocephalus. Redemonstrated prominent area of encephalomalacia in the right frontoparietal region. Remote left cerebellar hemisphere infarct. No CT evidence for an acute cortical infarction. Reduction white matter findings as can be seen in the setting of chronic microvascular ischemic change. Dense intracranial atherosclerotic calcifications. The globes are proptotic, unchanged from the prior. No depressed calvarial fracture. No layering fluid within the paranasal sinuses or mastoid air cells. CT cervical spine: Degraded study secondary to beam attenuation by overlying soft tissues. Taking into consideration the above limitations, no acute fracture seen throughout the cervical spine. No traumatic malalignment. Multilevel prominent ventral osteophytes with bony bridging anterior to C6-C7. 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 Moderate to potentially severe central canal stenosis at C2-C3 and more moderate central canal encroachment elsewhere throughout the cervical spine appearing mostly related to intrinsic narrowing. No severe bony encroachment on the neural foramina. No prevertebral hematoma is identified. Limited evaluation for a thyroid nodule given streak artifact. A stent is present within the right subclavian vein. Calcific atherosclerosis of both carotid bulbs. No apical pneumothorax. IMPRESSION: CT head: 1. No acute intracranial abnormality by CT. 2. Redemonstrated and unchanged left cerebellar hemisphere infarct as well as a prominent area of encephalomalacia at the right frontoparietal region. CT cervical spine: 1. Degraded study secondary to beam attenuation by overlying soft tissues. Taking this into consideration, no acute fracture seen throughout the cervical spine. 2. Moderate to potentially severe central canal stenosis at C2-C3 in part related to partial ossification of the posterior longitudinal ligament. Elsewhere, more moderate central canal stenosis mainly due to intrinsic narrowing/short pedicles. Assessment/Plan Assessment/Plan Impression: Stroke symptoms, May have been metabolic related. 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 History of epilepsy Recommendations: Continue clopidogrel, citalopram, simvastatin, gabapentin, and levetiracetam. I ordered aspirin under the stroke pathway, cancel if tests are negative. Continue the clopidogrel alone. Echocardiogram MRI the brain CT angiogram of the head and neck. Aim for discharge later today if tests are negative. Thank for letting me help with the patient's care. PATRICIA SILVEIRA MD Sep 22, 2019 12:10
[2019-09-22] MEDS: CALCIUM ACETATE 667 MG CAPSULE PO SCH ×2 (12:25→16:30)
--- NOTE | 2019-09-22 12:40 | NUR ---
Patient had CTA with contrast. Per teletype technician patient needs to have dialysis in the next 24hrs or it becomes toxic. Paged Dr. Pathak she advised there is no need for dialysis at this time d/t her renal failure it is not an issue. Patient advised and verbalized understanding.
[2019-09-22] MEDS: HEPARIN for SUB-Q USE 5,000 UNIT/ML VIAL. SQ SCH ×2 (14:00→21:41)
--- NOTE | 2019-09-22 15:04 | RAD ---
CT ANGIOGRAPHY HEAD AND NECK History: TIA. Left carotid disease on prior MRI Technique: Noncontrast head CT was performed in correlation with this exam. After bolus of intravenous contrast, volumetric CT data acquisition was acquired of the head and neck. Multiplanar reconstruction images to include MIP and 3-D reconstruction images are submitted. Exposure: One or more of the following individualized dose reduction techniques were utilized for this examination: 1. Automated exposure control 2. Adjustment of the mA and/or kV according to patient size 3. Use of iterative reconstruction technique. Comparison: None Any determination of stenosis is based on NASCET criteria. Noncontrast CT head: No intracranial hemorrhage. No mass effect. No hydrocephalus. Extra-axial spaces are unremarkable. Imaged orbits are unremarkable. Imaged paranasal sinuses and mastoid air cells are clear. Head CTA: ICA: Extensive carotid siphon atheromatous calcification. Moderate to high-grade narrowing of the right paraclinoid internal carotid artery. Moderate narrowing of the left paraclinoid internal carotid artery. MCA: No stenosis, occlusion or aneurysm. MARLEN: No stenosis, occlusion or aneurysm. [employer]: No stenosis, occlusion or aneurysm. Basilar artery: No stenosis, occlusion or aneurysm. Distal vertebral arteries: High-grade stenosis of the right distal intracranial vertebral artery due to calcified plaque. Moderate narrowing of the left distal intracranial vertebral artery. Right MCA territory chronic infarct. Left cerebellar infarct. Bilateral proptosis due to abundant retro-orbital fat. CT angiogram neck: Aortic arch: Mild atheromatous desiccation within the aortic arch and branch vessels. Common carotid arteries: No stenosis, occlusion or dissection. Internal carotid arteries: Mild less than 50 percent narrowing of the right proximal internal carotid artery due to calcified plaque at the carotid bulb. Mild left carotid bulb atheromatous soft and calcified plaque contributing to minimal left proximal internal carotid artery narrowing. External carotid arteries: Patent Vertebral arteries: No stenosis, occlusion or dissection. Left upper lobe subsegmental atelectasis. Right apical pleural-based nodule. 3 mm right upper lobe pulmonary nodule. (Image #[id number]). Evaluation compared to priors difficult due to previous nodular opacities. Right brachiocephalic SVC stent. Chest wall collateral vessels. Small left thyroid nodule measures 7 mm. Bones: No pathologic osseous lesions. Impression: 1. Moderate to high-grade narrowing of the bilateral paraclinoid internal carotid arteries, right greater than left. 2. High-grade right and moderate left distal vertebral artery stenosis. 3. Additional atheromatous disease within the head and neck. 4. Tiny right upper lobe pulmonary nodules. Recommend follow-up. Electronically signed by: Jacky Mas DO (09/22/2019 3:01 PM) [facility], [place]
--- NOTE | 2019-09-22 15:18 | PDOC2 ---
CONSULT Date of Consult Date of Consult DATE: 09/22/19 TIME: 15:10 Reason for Consult Reason for Consult: ESRD MWF Source Source: Chart review, Patient History of Present Illness Reason for Visit: : The patient is a 69-year AA female. End-stage renal disease, on hemodialysis. She went to dialysis yesterday, then she says she had a fall, hitting her head and she had severe headache and she also had problem with speech. She was brought to the hospital, had a CT scan with no bleed, was admitted for further observation. Neurology was consulted. Denies any CP, SOB. States she normally goes to HD on MWF but was dialysed yesterday as some construction going on at HD unit . She was advised to come back on Wednesday Past Medical History Cardiovascular: CHF, HTN, Other (deep vein thrombosis) Pulmonary: Asthma, Bronchitis, COPD, Other (sleep apnea) CENTRAL NERVOUS SYSTEM: CVA, Seizure (negative EEG) GI: Constipation, GERD Heme/Onc: Anemia NOS Psych: Anxiety, Depression Musculoskeletal: Other Rheumatologic: Gout, Rheumatoid arthritis Renal/: Chronic renal failure (on dialysis) Endocrine: Diabetes, Hyperparathyroidism Past Surgical History Past Surgical History: Cholecystectomy, , Hysterectomy, Other (pannus removal, dialysis catheter placement) Family History Family History FAMILY HISTORY: Positive for diabetes and heart disease. Family History: Coronary Artery Disease, Hypertension, Kidney Disease Social History Social History Ex-smoker in the past. Denies smoking, alcohol or drug abuse. Lives at home with her daughter. ALCOHOL: none Drugs: None Lives: with Family Current Problem List Problem List Problems Medical Problems: (1) Fall Status: Acute (2) Hypertension Status: Acute (3) Neck pain Status: Acute (4) Old cerebrovascular accident (CVA) without late effect Status: Acute (5) TIA (transient ischemic attack) Status: Acute Current Medications Current Medications Current Medications Ketorolac Tromethamine (Toradol Im) 60 mg 1X ONCE IM Last administered on 09/21/19at 21:05; Start 09/21/19 at 20:45; Stop 09/21/19 at 20:46; Status DC Diphenhydramine HCl (Benadryl) 25 mg 1X ONCE IM ; Start 09/21/19 at 20:45; Stop 09/21/19 at 20:46; Status DC Metoclopramide HCl (Reglan) 10 mg 1X ONCE PO Last administered on 09/21/19at 21:00; Start 09/21/19 at 20:45; Stop 09/21/19 at 20:46; Status DC Ondansetron HCl (Zofran) 4 mg PRN Q8HRS PRN IV NAUSEA/VOMITING; Start 09/21/19 at 21:00; Stop 09/22/19 at 20:59 Acetaminophen (Tylenol) 650 mg PRN Q4HRS PRN PO FEVER; Start 09/21/19 at 21:00; Stop 09/22/19 at 08:22; Status DC Clonidine HCl (Catapres) 0.1 mg TID PO Last administered on 09/22/19at 13:57; Start 09/21/19 at 23:45 Cyclobenzaprine HCl (Flexeril) 10 mg BID PO Last administered on 09/22/19at 09:39; Start 09/21/19 at 23:45 Gabapentin (Neurontin) 300 mg HS PO Last administered on 09/22/19at 00:01; Start 09/21/19 at 23:45 Acetaminophen/ Hydrocodone Bitart (Lortab 5/325) 1 tab PRN Q6HRS PRN PO PAIN Last administered on 09/22/19at 00:04; Start 09/21/19 at 23:45 Levetiracetam (Keppra) 500 mg BID PO Last administered on 09/22/19at 09:38; Start 09/21/19 at 23:45 Metoclopramide HCl (Reglan) 5 mg QIDACHS PO Last administered on 09/22/19at 11:09; Start 09/21/19 at 23:45 Pantoprazole Sodium (Protonix) 40 mg DAILYAC PO Last administered on 09/22/19at 06:45; Start 09/22/19 at 07:30 Simvastatin (Zocor) 40 mg QHS PO Last administered on 09/22/19at 00:01; Start 09/21/19 at 23:45 Albuterol Sulfate (Ventolin Neb Soln) 2.5 mg RTQID NEB Last administered on 09/22/19at 08:23; Start 09/22/19 at 08:00; Stop 09/29/19 at 07:59 Insulin Human Lispro (HumaLOG) 5 units BIDWMEALS SQ ; Start 09/22/19 at 08:00 Non-Formulary Medication (Insulin Detemir (Levemir Flextouch)) 8 unit HS SQ ; Start 09/22/19 at 21:00; Status UNV Sennosides (Senna) 8.6 mg BID PO Last administered on 09/22/19at 09:39; Start 09/22/19 at 09:00 Insulin Glargine (Lantus Syringe) 8 unit QHS SQ ; Start 09/22/19 at 21:00 Acetaminophen (Tylenol) 650 mg PRN Q6HRS PRN PO TEMP > 100.4F; Start 09/22/19 at 08:30 Acetaminophen (Tylenol Supp) 650 mg PRN Q4HRS PRN PA TEMP > 100.4F; Start 09/22/19 at 08:30 Aspirin (Ecotrin) 325 mg DAILYWBKFT PO Last administered on 09/22/19at 09:41; Start 09/22/19 at 08:30 Aspirin (Aspirin Rectal Supp) 300 mg PRN DAILY PRN PA IF UNABLE TO TAKE PO; Start 09/22/19 at 08:30 Sodium Chloride 1,000 ml @ 1,000 mls/hr Q1H PRN IV hypotension; Start 09/22/19 at 09:03; Stop 09/22/19 at 09:50; Status DC Albumin Human 200 ml @ 200 mls/hr 1X PRN PRN IV Hypotension; Start 09/22/19 at 09:15; Stop 09/22/19 at 09:50; Status DC Sodium Chloride 1,000 ml @ 400 mls/hr Q2H30M PRN IV PATENCY; Start 09/22/19 at 09:03; Stop 09/22/19 at 09:50; Status DC Info (PHARMACY MONITORING -- do not chart) 1 each PRN DAILY PRN MC SEE COMMENTS; Start 09/22/19 at 09:15; Stop 09/22/19 at 09:50; Status DC Info (PHARMACY MONITORING -- do not chart) 1 each PRN DAILY PRN MC SEE COMMENTS; Start 09/22/19 at 09:15; Status UNV Sodium Chloride 1,000 ml @ 1,000 mls/hr Q1H PRN IV hypotension; Start 09/22/19 at 10:00; Stop 09/22/19 at 15:59 Albumin Human 200 ml @ 200 mls/hr 1X PRN PRN IV Hypotension; Start 09/22/19 at 10:00; Stop 09/22/19 at 15:59 Sodium Chloride 1,000 ml @ 400 mls/hr Q2H30M PRN IV PATENCY; Start 09/22/19 at 10:00; Stop 09/22/19 at 21:59 Info (PHARMACY MONITORING -- do not chart) 1 each PRN DAILY PRN MC SEE CO MMENTS; Start 09/22/19 at 10:00 Info (PHARMACY MONITORING -- do not chart) 1 each PRN DAILY PRN MC SEE COMMENTS; Start 09/22/19 at 10:00; Status UNV Allopurinol (Zyloprim) 100 mg DAILY PO Last administered on 09/22/19at 11:09; Start 09/22/19 at 11:00 Alprazolam (Xanax) 0.25 mg PRN BID PRN PO ANXIETY / AGITATION Last administered on 09/22/19at 14:19; Start 09/22/19 at 10:15 Cinacalcet (Sensipar) 30 mg DAILY PO Last administered on 09/22/19at 11:07; Start 09/22/19 at 11:00 Citalopram Hydrobromide (CeleXA) 10 mg DAILY PO Last administered on 09/22/19at 11:07; Start 09/22/19 at 11:00 Clopidogrel Bisulfate (Plavix) 75 mg DAILY PO Last administered on 09/22/19at 11:07; Start 09/22/19 at 11:00 Metoprolol Succinate (Toprol Xl) 25 mg QHS PO ; Start 09/22/19 at 21:00 Non-Formulary Medication (Naloxegol Oxalate (Movantik)) 25 mg DAILY PO ; Start 09/23/19 at 09:00; Status UNV Non-Formulary Medication (Vit B Cmplx 3/ Fa/Vit C/Biotin (Vol-Care Rx Tablet)) 1 each DAILY PO ; Start 09/23/19 at 09:00; Status UNV Calcium Acetate (Phoslo) 2,001 mg TIDWMEALS PO Last administered on 09/22/19at 12:25; Start 09/22/19 at 12:00 Dextrose (Dextrose 50%-Water Syringe) 12.5 gm PRN Q15MIN PRN IV SEE COMMENTS; Start 09/22/19 at 10:15 Heparin Sodium (Porcine) (Heparin Sodium) 5,000 unit Q8HRS SQ Last administered on 09/22/19at 14:00; Start 09/22/19 at 14:00 Iohexol (Omnipaque 300 Mg/ml) 75 ml 1X ONCE IV ; Start 09/22/19 at 11:15; Stop 09/22/19 at 11:16; Status DC Info (CONTRAST GIVEN -- Rx MONITORING) 1 each PRN DAILY PRN MC SEE COMMENTS; Start 09/22/19 at 11:15; Stop 09/24/19 at 11:14 Iohexol (Omnipaque 350 Mg/ml) 75 ml 1X ONCE IV Last administered on 09/22/19at 11:56; Start 09/22/19 at 11:30; Stop 09/22/19 at 11:31; Status DC Active Scripts Active Pantoprazole Sodium (Pantoprazole Sodium) 40 Mg Tablet.dr 40 Mg PO DAILYAC 30 Days Metoprolol Succinate ( Xl ) (Metoprolol Succinate) 25 Mg Tab.er.24h 25 Mg PO QHS 30 Days Reported Levemir Flextouch (Insulin Detemir) 100 Unit/1 Ml Insuln.pen 8 Unit SQ HS Novolog Flexpen (Insulin Aspart) 100 Unit/1 Ml Insuln.pen 5 Unit SQ BIDWMEALS [phoslo] 2,001 Mg PO TID Movantik (Naloxegol Oxalate) 25 Mg Tablet 25 Mg PO DAILY Xopenex Hfa (Levalbuterol Tartrate) 15 Gm Hfa.aer.ad 2 Puff IH QID Keppra (Levetiracetam) 500 Mg Tablet 1 Tab PO BID Vol-Care Rx Tablet (Vit B Cmplx 3/Fa/Vit C/Biotin) 1 Each Tablet 1 Each PO DAILY Clopidogrel (Clopidogrel Bisulfate) 75 Mg Tablet 1 Tab PO DAILY Alprazolam 0.25 Mg Tablet 1 Tab PO PRN BID PRN Celexa (Citalopram Hydrobromide) 10 Mg Tablet 1 Tab PO DAILY Allopurinol 100 Mg Tablet 1 Tab PO DAILY Sensipar (Cinacalcet Hcl) 30 Mg Tablet 1 Tab PO DAILY Simvastatin 40 Mg Tablet 1 Tab PO QHS Gabapentin (Gabapentin) 300 Mg Capsule 1 Cap PO HS Senna (Sennosides) 8.6 Mg Capsule 8.6 Mg PO BID Cyclobenzaprine Hcl 10 Mg Tablet 1 Tab PO BID Reglan (Metoclopramide Hcl) 10 Mg Tablet 5 Mg PO QIDACHS Clonidine Hcl 0.1 Mg Tablet 1 Tab PO TID Hydrocodone-Apap 5-325 (Hydrocodone Bit/Acetaminophen) 1 Each Tablet 1 Tab PO PRN Q6HRS PRN Allergies Allergies: Coded Allergies: diphenhydramine (Verified Allergy, Intermediate, 09/21/19) Siezures ROS Review of System Per HPI Physical Exam Physical Exam : GENERAL: obese, NAD HEENT: OM moist NECK: supple HEST: Symmetrical. CARDIOVASCULAR: S1, S2. LUNGS: Clear, Non labored ABDOMEN: Soft. obese : No Phillips. Neuro- see exam by neurologist Skin No rash Ext No LE edema Vital Signs Vital Signs Date Time Temp Pulse Resp B/P (MAP) Pulse Ox O2 Delivery O2 Flow Rate FiO2 09/22/19 13:57 68 115/51 09/22/19 11:00 97.9 18 94 Nasal Cannula 2.0 97.9 Assessment & Plan ESRD - On HD MWF Last HD was 09/21 () due to renovation at OP HD unit Pt refused HD today , E-Lytes and Vol status stable Will schedule for Tomorrow Aphasia- resolved Neuro following Headaches, chronic, not migrainous History of epilepsy Anemia- No indication forESA currently DM- per primary Labs Labs Laboratory Tests Test 09/21/19 23:58 09/22/19 04:19 09/22/19 08:10 Glucose (Fingerstick) 83 mg/dL (70-99) 80 mg/dL (70-99) White Blood Count 3.9 x10^3/uL (4.0-11.0) Red Blood Count 3.44 x10^6/uL (3.50-5.40) Hemoglobin 11.2 g/dL (12.0-15.5) Hematocrit 35.0 % (36.0-47.0) Mean Corpuscular Volume 102 fL (79-100) Mean Corpuscular Hemoglobin 33 pg (25-35) Mean Corpuscular Hemoglobin Concent 32 g/dL (31-37) Red Cell Distribution Width 14.8 % (11.5-14.5) Platelet Count 136 x10^3/uL (140-400) Neutrophils (%) (Auto) 41 % (31-73) Lymphocytes (%) (Auto) 43 % (24-48) Monocytes (%) (Auto) 12 % (0-9) Eosinophils (%) (Auto) 3 % (0-3) Basophils (%) (Auto) 0 % (0-3) Neutrophils # (Auto) 1.6 x10^3/uL (1.8-7.7) Lymphocytes # (Auto) 1.7 x10^3/uL (1.0-4.8) Monocytes # (Auto) 0.5 x10^3/uL (0.0-1.1) Eosinophils # (Auto) 0.1 x10^3/uL (0.0-0.7) Basophils # (Auto) 0.0 x10^3/uL (0.0-0.2) Sodium Level 140 mmol/L (136-145) Potassium Level 4.8 mmol/L (3.5-5.1) Chloride Level 100 mmol/L (98-107) Carbon Dioxide Level 32 mmol/L (21-32) Anion Gap 8 (6-14) Blood Urea Nitrogen 26 mg/dL (7-20) Creatinine 4.3 mg/dL (0.6-1.0) Estimated GFR (Cockcroft-Gault) 12.4 BUN/Creatinine Ratio 6 (6-20) Glucose Level 116 mg/dL (70-99) Calcium Level 8.7 mg/dL (8.5-10.1) Total Bilirubin 0.3 mg/dL (0.2-1.0) Aspartate Amino Transf (AST/SGOT) 18 U/L (15-37) Alanine Aminotransferase (ALT/SGPT) 8 U/L (14-59) Alkaline Phosphatase 107 U/L (46-116) Total Protein 6.5 g/dL (6.4-8.2) Albumin 2.4 g/dL (3.4-5.0) Albumin/Globulin Ratio 0.6 (1.0-1.7) Laboratory Tests Test 09/21/19 23:58 09/22/19 04:19 09/22/19 08:10 Glucose (Fingerstick) 83 mg/dL (70-99) 80 mg/dL (70-99) White Blood Count 3.9 x10^3/uL (4.0-11.0) Red Blood Count 3.44 x10^6/uL (3.50-5.40) Hemoglobin 11.2 g/dL (12.0-15.5) Hematocrit 35.0 % (36.0-47.0) Mean Corpuscular Volume 102 fL (79-100) Mean Corpuscular Hemoglobin 33 pg (25-35) Mean Corpuscular Hemoglobin Concent 32 g/dL (31-37) Red Cell Distribution Width 14.8 % (11.5-14.5) Platelet Count 136 x10^3/uL (140-400) Neutrophils (%) (Auto) 41 % (31-73) Lymphocytes (%) (Auto) 43 % (24-48) Monocytes (%) (Auto) 12 % (0-9) Eosinophils (%) (Auto) 3 % (0-3) Basophils (%) (Auto) 0 % (0-3) Neutrophils # (Auto) 1.6 x10^3/uL (1.8-7.7) Lymphocytes # (Auto) 1.7 x10^3/uL (1.0-4.8) Monocytes # (Auto) 0.5 x10^3/uL (0.0-1.1) Eosinophils # (Auto) 0.1 x10^3/uL (0.0-0.7) Basophils # (Auto) 0.0 x10^3/uL (0.0-0.2) Sodium Level 140 mmol/L (136-145) Potassium Level 4.8 mmol/L (3.5-5.1) Chloride Level 100 mmol/L (98-107) Carbon Dioxide Level 32 mmol/L (21-32) Anion Gap 8 (6-14) Blood Urea Nitrogen 26 mg/dL (7-20) Creatinine 4.3 mg/dL (0.6-1.0) Estimated GFR (Cockcroft-Gault) 12.4 BUN/Creatinine Ratio 6 (6-20) Glucose Level 116 mg/dL (70-99) Calcium Level 8.7 mg/dL (8.5-10.1) Total Bilirubin 0.3 mg/dL (0.2-1.0) Aspartate Amino Transf (AST/SGOT) 18 U/L (15-37) Alanine Aminotransferase (ALT/SGPT) 8 U/L (14-59) Alkaline Phosphatase 107 U/L (46-116) Total Protein 6.5 g/dL (6.4-8.2) Albumin 2.4 g/dL (3.4-5.0) Albumin/Globulin Ratio 0.6 (1.0-1.7) Review All relevant outside records, renal labs, imaging studies, telemetry/EKG's were reviewed. LILI OCASIO MD Sep 22, 2019 15:18
--- NOTE | 2019-09-22 16:25 | RAD ---
MRI Brain without contrast History: TIA Technique: Multiplanar, multisequential noncontrast MR imaging was performed of the brain. Comparison: June 23, 2013 Findings: There is some motion degradation. There is no evidence of recent infarct, new intra-axial mass effect, midline shift, extra-axial fluid collection. There is again large area of encephalomalacia with cortical involvement of the right parietal temporal lobes, adjacent gliosis signified by T2 and FLAIR hyperintense signal. Other overall mild T2 and FLAIR hyperintense signal abnormality of the supratentorial parenchyma white matter bilaterally has progressed since previous exam. Ventricular size is within normal limits. There is old infarct of the left cerebellum, developed since the recent exam. There is patchy minimal fluid left mastoid air cells. There is preservation of the major arterial flow voids at the skull base. Frontal sinus is not pneumatized. Cerebellar tonsils are normal in location. There is nonspecific heterogeneity of the marrow of the clivus unchanged. There is no new abnormality of pineal gland or pituitary gland. Impression: 1. There is no evidence of recent infarct or new intracranial mass effect. 2. There is again large old infarct with cortical involvement of the right parietal temporal lobes. Other mild T2 and FLAIR hyperintense signal of the supratentorial parenchyma is probably due to chronic microvascular ischemic disease in a patient this age. Old left cerebellar infarct is new since the 2013 exam. Electronically signed by: Dhiraj Gonzalez MD (09/22/2019 4:22 PM) [id number]
--- NOTE | 2019-09-22 16:41 | NUR ---
Wound Care Wound care consult for buttock wound. Pt has stage II PU to coccyx/upper buttock. Cleansed area and applied calazime cream. Pt on williams bed, turned to left side with wedge. Pt educated on PU prevention. No other wounds noted on full skin inspection. WC will continue to follow for possible changes.
[2019-09-22 19:08] VITALS: BP 125/49
[2019-09-22] MEDS ORDERED: METOPROLOL SUCC 24HR ER 25 MG TAB.ER.24H. PO SCH (21:00)
[2019-09-22] MEDS ORDERED: INSULIN DETEMIR 8 UNIT SQ SCH (21:00)
[2019-09-22] MEDS ORDERED: INSULIN GLARGINE SYRINGE. SQ SCH (21:00)
[2019-09-22 23:27] VITALS: BP 128/55
[2019-09-23 03:20] VITALS: BP 134/49
[2019-09-23 05:50] LABS: CHOLESTEROL/HDL RATIO 2.7
[2019-09-23] MEDS: HEPARIN for SUB-Q USE 5,000 UNIT/ML VIAL. SQ SCH ×2 (05:50→15:24)
[2019-09-23 07:00] VITALS: BP 119/52
[2019-09-23] MEDS: CALCIUM ACETATE 667 MG CAPSULE PO SCH ×3 (08:00→17:10)
[2019-09-23] MEDS ORDERED: DIALYSIS PATIENT. MC PRN ×2 (08:45)
[2019-09-23] MEDS ORDERED: [UNRECOGNIZED DRUG - OTHER] PO SCH (09:00)
[2019-09-23] MEDS ORDERED: BIOTIN PO SCH (09:00)
[2019-09-23] MEDS ORDERED: VIT B CMPLX PO SCH (09:00)
[2019-09-23] MEDS ORDERED: IV NORMAL SALINE 1000ML BAG 1,000 ML IV PRN ×2 (09:00)
[2019-09-23] MEDS ORDERED: NON FORMULARY ITEM (Naloxegol Oxalate (Movantik) 25 MG) PO SCH (09:00)
[2019-09-23] MEDS: cloNIDine HCL 0.1 MG TABLET PO SCH ×2 (09:00→15:19)
[2019-09-23] MEDS: ALBUTEROL SULFATE 2.5 MG/3 ML NEBU. NEB SCH ×3 (09:13→16:17)
[2019-09-23] MEDS: INSULIN LISPRO 300 UNITS/3 ML VIAL. SQ SCH ×2 (09:46→17:00)
--- NOTE | 2019-09-23 10:35 | PDOC ---
PROGRESS NOTES Subjective Subjective seen in dialysis,speech normal Objective Objective Vital Signs Date Time Temp Pulse Resp B/P (MAP) Pulse Ox O2 Delivery O2 Flow Rate FiO2 09/23/19 09:15 100 Nasal Cannula 2.0 09/23/19 07:00 97.4 73 18 119/52 (74) 97.4 Intake and Output 09/23/19 07:00 Intake Total 360 ml Output Total 0 ml Balance 360 ml Intake Oral 360 ml Output Urine Total 0 ml Physical Exam Abdomen: Normal bowel sounds, Soft Heart: Regular rate, Normal S1, Normal S2 Extremities: No clubbing General: Alert, Oriented X3 HEENT: Atraumatic MUSCULOSKELETAL: No joint tenderness, No deformity, No swelling Neuro: Normal speech Psych/Mental Status: Mental status NL Skin: No breakdown Diagnosis Problem List Problems Medical Problems: (1) Fall Status: Acute (2) Hypertension Status: Acute (3) Neck pain Status: Acute (4) Old cerebrovascular accident (CVA) without late effect Status: Acute (5) TIA (transient ischemic attack) Status: Acute Assessment Assessment Problems Medical Problems: (1) Fall Status: Acute (2) Hypertension Status: Acute (3) Neck pain Status: Acute (4) Old cerebrovascular accident (CVA) without late effect Status: Acute (5) TIA (transient ischemic attack) Status: Acute FINAL IMPRESSION: 1. Severe headache resolved. 2. Problems with speech, resolved, possible transient ischemic attack.resolved 3. Old stroke with left hemiparesis. 4. End-stage renal disease, on dialysis on Wednesday, Wednesday and Wednesday. 5. Insulin-dependent diabetes. 6. Morbid obesity. 7. History of seizures, stable. PLAN: MRI neg for ac cva. arteriogram some stenosis. dialysis today d/c home on Plavix 75 +asa 81 mg . echo good lvf At this time, was admitted to the hospital, seen by Neurology. CTA was ordered by Neurology and will get dialyzed tomorrow and probably could be discharged home tomorrow. Continue Plavix, baby aspirin and seizure medications. Plan Plan of Care Problems Medical Problems: (1) Fall Status: Acute (2) Hypertension Status: Acute (3) Neck pain Status: Acute (4) Old cerebrovascular accident (CVA) without late effect Status: Acute (5) TIA (transient ischemic attack) Status: Acute Comment Review of Relevant I have reviewed the following items gabbi (where applicable) has been applied. Labs Laboratory Tests Test 09/22/19 17:32 09/22/19 20:50 09/23/19 03:35 09/23/19 03:53 Glucose (Fingerstick) 139 mg/dL (70-99) 157 mg/dL (70-99) Thyroid Stimulating Hormone (TSH) 3.794 uIU/mL (0.358-3.74) Triglycerides Level 239 mg/dL (0-150) Cholesterol Level 139 mg/dL (0-200) LDL Cholesterol, Calculated 40 mg/dL (0-100) VLDL Cholesterol, Calculated 48 mg/dL (0-40) Non-HDL Cholesterol Calculated 88 mg/dL (0-129) HDL Cholesterol 51 mg/dL (40-60) Cholesterol/HDL Ratio 2.7 Test 09/23/19 07:47 Glucose (Fingerstick) 125 mg/dL (70-99) Medications Current Medications Allopurinol (Zyloprim) 100 mg DAILY PO Last administered on 09/22/19at 11:09; Start 09/22/19 at 11:00 Calcium Acetate (Phoslo) 2,001 mg TIDWMEALS PO Last administered on 09/22/19at 16:30; Start 09/22/19 at 12:00 Cinacalcet (Sensipar) 30 mg DAILY PO Last administered on 09/22/19at 11:07; Start 09/22/19 at 11:00 Citalopram Hydrobromide (CeleXA) 10 mg DAILY PO Last administered on 09/22/19at 11:07; Start 09/22/19 at 11:00 Clopidogrel Bisulfate (Plavix) 75 mg DAILY PO Last administered on 09/22/19at 11:07; Start 09/22/19 at 11:00 Heparin Sodium (Porcine) (Heparin Sodium) 5,000 unit Q8HRS SQ Last administered on 09/23/19at 05:50; Start 09/22/19 at 14:00 Info (CONTRAST GIVEN -- Rx MONITORING) 1 each PRN DAILY PRN MC SEE COMMENTS; Start 09/22/19 at 11:15; Stop 09/24/19 at 11:14 Info (PHARMACY MONITORING -- do not chart) 1 each PRN DAILY PRN MC SEE COMMENTS; Start 09/23/19 at 08:45; Status UNV Info (PHARMACY MONITORING -- do not chart) 1 each PRN DAILY PRN MC SEE COMMENTS; Start 09/23/19 at 08:45; Status UNV Insulin Glargine (Lantus Syringe) 8 unit QHS SQ Last administered on 09/22/19at 21:40; Start 09/22/19 at 21:00 Iohexol (Omnipaque 300 Mg/ml) 75 ml 1X ONCE IV ; Start 09/22/19 at 11:15; Stop 09/22/19 at 11:16; Status DC Iohexol (Omnipaque 350 Mg/ml) 75 ml 1X ONCE IV Last administered on 09/22/19at 11:56; Start 09/22/19 at 11:30; Stop 09/22/19 at 11:31; Status DC Metoprolol Succinate (Toprol Xl) 25 mg QHS PO Last administered on 09/22/19at 21:28; Start 09/22/19 at 21:00 Non-Formulary Medication (Insulin Detemir (Levemir Flextouch)) 8 unit HS SQ ; Start 09/22/19 at 21:00; Status UNV Non-Formulary Medication (Naloxegol Oxalate (Movantik)) 25 mg DAILY PO ; Start 09/23/19 at 09:00; Status UNV Non-Formulary Medication (Vit B Cmplx 3/ Fa/Vit C/Biotin (Vol-Care Rx Tablet)) 1 each DAILY PO ; Start 09/23/19 at 09:00; Status UNV Sodium Chloride 1,000 ml @ 400 mls/hr Q2H30M PRN IV PATENCY; Start 09/23/19 at 09:00; Stop 09/23/19 at 19:00 Sodium Chloride 1,000 ml @ 1,000 mls/hr Q1H PRN IV hypotension; Start 09/23/19 at 09:00; Stop 09/23/19 at 19:00 Vitals/I & O Vital Sign - Last 24 Hours 09/22/19 09/22/19 09/22/19 09/22/19 11:00 13:57 19:08 20:00 Temp 97.9 97.5 97.9 97.5 Pulse 68 68 74 Resp 18 20 B/P (MAP) 115/51 (72) 115/51 125/49 (74) Pulse Ox 94 97 O2 Delivery Nasal Cannula Nasal Cannula Nasal Cannula O2 Flow Rate 2.0 2.0 2.0 09/22/19 09/22/19 09/22/19 09/23/19 21:28 21:29 23:27 03:20 Temp 98.0 98.1 98.0 98.1 Pulse 74 74 73 67 Resp 20 20 B/P (MAP) 125/49 125/49 128/55 (79) 134/49 (77) Pulse Ox 100 99 O2 Delivery Nasal Cannula Nasal Cannula O2 Flow Rate 2.0 2.0 09/23/19 09/23/19 07:00 09:15 Temp 97.4 97.4 Pulse 73 Resp 18 B/P (MAP) 119/52 (74) Pulse Ox 95 100 O2 Delivery Nasal Cannula Nasal Cannula O2 Flow Rate 2.0 2.0 Intake and Output 09/22/19 09/22/19 09/23/19 15:00 23:00 07:00 Intake Total 240 ml 120 ml 0 ml Output Total 0 ml Balance 240 ml 120 ml 0 ml CARMITA WALL MD Sep 23, 2019 10:35
[2019-09-23] MEDS ORDERED: ASPI81TA50 PO (10:37)
[2019-09-23] MEDS: METOCLOPRAMIDE 10 MG TABLET. PO SCH ×3 (11:30→16:30)
[2019-09-23] MEDS: CYCLOBENZAPRINE 10 MG TABLET. PO SCH (15:18)
[2019-09-23] MEDS: CITALOPRAM 10 MG TABLET. PO SCH (15:18)
[2019-09-23] MEDS: CINACALCET HCL 30 MG TABLET PO SCH (15:18)
[2019-09-23 15:19] VITALS: BP 148/65
[2019-09-23] MEDS: PANTOPRAZOLE 40 MG TABLET.DR. PO SCH (15:19)
[2019-09-23] MEDS: SENNOSIDES 8.6 MG TABLET PO SCH (15:19)
[2019-09-23] MEDS: CLOPIDOGREL BISULFATE 75 MG TABLET PO SCH (15:19)
[2019-09-23] MEDS: ASPIRIN ENTERIC COATED 325 MG TABLET.DR. PO SCH (15:19)
[2019-09-23] MEDS: ALLOPURINOL 100 MG TABLET. PO SCH (15:19)
[2019-09-23] MEDS: levETIRAcetam 500 MG TABLET PO SCH (15:20)
--- NOTE | 2019-09-23 16:03 | PDOC ---
Renal-Progress Notes Subjective Notes Notes NO NEW COMPLAINTS History of Present Illness Hx of present illness STABLE Vitals Vitals Vital Signs Date Time Temp Pulse Resp B/P (MAP) Pulse Ox O2 Delivery O2 Flow Rate FiO2 09/23/19 15:19 73 148/65 09/23/19 09:15 100 Nasal Cannula 2.0 09/23/19 07:00 97.4 18 97.4 Weight Weight [ ] I.O. Intake and Output Intake and Output 09/23/19 07:00 Intake Total 360 ml Output Total 0 ml Balance 360 ml Intake Oral 360 ml Output Urine Total 0 ml Labs Labs Laboratory Tests Test 09/22/19 17:32 09/22/19 20:50 09/23/19 03:35 09/23/19 03:53 Glucose (Fingerstick) 139 mg/dL (70-99) 157 mg/dL (70-99) Thyroid Stimulating Hormone (TSH) 3.794 uIU/mL (0.358-3.74) Triglycerides Level 239 mg/dL (0-150) Cholesterol Level 139 mg/dL (0-200) LDL Cholesterol, Calculated 40 mg/dL (0-100) VLDL Cholesterol, Calculated 48 mg/dL (0-40) Non-HDL Cholesterol Calculated 88 mg/dL (0-129) HDL Cholesterol 51 mg/dL (40-60) Cholesterol/HDL Ratio 2.7 Test 09/23/19 07:47 09/23/19 15:13 Glucose (Fingerstick) 125 mg/dL (70-99) 88 mg/dL (70-99) Review of Systems Constitutional: yes: alert, oriented Ears/Nose/Throat: Yes: no symptom reported Eyes: Yes: no symptom reported Pulmonary: Yes no symptom reported Cardiovascular: Yes no symptom reported Gastrointestional: Yes: constipation Genitourinary: Yes: no symptom reported Musculoskeletal: Yes: muscle stiffness Skin: Yes no symptom reported Psychiatric/Neurological: Yes: no symptom reported Endocrine: Yes: no symptom reported Physical Exam General Appearance: no apparent distress Skin: warm Respiratory: decreased breath sounds Heart: S1S2 Abdomen: soft Genitourinary: bladder flat Extremities: pulses present Neurology: alert, oriented Musculoskeletal: Other Assessment Assessment IMP ESRD APHASIA-TIA? HEADACHES MORBID OBESITY DM II HTN ANEMIA PLAN HD TODAY UF TO JOSE JUAN D/W ATTENDING MEJIA RAMOS MD Sep 23, 2019 16:03
--- NOTE | 2019-09-23 16:55 | PDOC ---
PROGRESS NOTES Assessment Assessment IMPRESSION: CVA symptoms. Headaches. ESRD on dialysis. DM. HTN. COPD. Carotid A stenosis. Chronic intracranial A atheromatous disease. Bilateral paraclinoid ICA stenosis, right >left. Chronic left vertebral A stenosis. 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 Left side hemiplegia, old. Obesity. No evidence of acute CVA this time. Seizure? RECOMMENDATIONS/PLAN: Continue Plavix 75 mg daily. Continue ASA daily. Continue Statin HS. Treat medical diseases. See Vascular Surgery, outpatient [place]. OT/PT. Weight reduction. FU with PCP. Echo reports pending. Past Medical History Cardiovascular: CHF, HTN, Other (deep vein thrombosis) Pulmonary: Asthma, Bronchitis, COPD, Other (sleep apnea) CENTRAL NERVOUS SYSTEM: CVA, Seizure (negative EEG) GI: Constipation, GERD Psych: Anxiety, Depression Rheumatologic: Gout, Rheumatoid arthritis Renal/: Chronic renal failure (on dialysis) Endocrine: Diabetes, Hyperparathyroidism Past Surgical History Cholecystectomy, , Hysterectomy, Other (pannus removal, dialysis catheter placement) Family History No pertinent hx Social History , quit smoking, no alcohol, lives at home Allergies Coded Allergies: diphenhydramine (Verified Allergy, Intermediate, 09/21/19) Siezures ROS Negative for fever, chills, weight loss, shortness of breath, chest pain, indigestion, hematoche, melena, and dysuria. Full 14-point review of systems is negative. PHYSICAL EXAMINATION: General appearance in no acute distress. HEENT: Normocephalic and nontraumatic. Eyes, nose, ears, and throat are unremarkable. Hearing decrease. Neck is supple. No lymphadenopathy. No Crepitus. Cardiovascular: S1, S2, regular rate and rhythm. Pulmonary: decreased to auscultation bilaterally due to obesity. Abdomen: Bowel sounds are positive. Extremities: No rash, lesions, or edema. No restriction of range of motion NEUROLOGICAL EXAMINATION: Awake. Oriented to time, place and person. PERRL. EOMI. CN: no focal findings. Muscle tone: within normal. Muscle strength: left side hemiplegia. Right side 5- DTR: brisky left UE, 1-2 right UE and LE. Plantar reflex: Neutral response bilaterally Gait: not able to walk. Sensory exam: no acute abnormal findings. No cerebellar signs elicited. F-T-N test fine in right hand. Objective Objective Vital Signs Date Time Temp Pulse Resp B/P (MAP) Pulse Ox O2 Delivery O2 Flow Rate FiO2 09/23/19 16:18 100 Nasal Cannula 2.0 09/23/19 15:19 73 148/65 09/23/19 07:00 97.4 18 97.4 Intake and Output 09/23/19 07:00 Intake Total 360 ml Output Total 0 ml Balance 360 ml Intake Oral 360 ml Output Urine Total 0 ml Vitals Signs Vitals VS - Last 72 Hours, by Label Date Time Temp Pulse Resp B/P (MAP) Pulse Ox O2 Delivery O2 Flow Rate FiO2 09/23/19 16:18 100 Nasal Cannula 2.0 09/23/19 15:19 73 148/65 09/23/19 09:15 100 Nasal Cannula 2.0 09/23/19 09:00 73 148/65 09/23/19 08:00 Nasal Cannula 2.0 09/23/19 07:00 97.4 73 18 119/52 (74) 95 Nasal Cannula 2.0 97.4 09/23/19 03:20 98.1 67 20 134/49 (77) 99 Nasal Cannula 2.0 98.1 09/22/19 23:27 98.0 73 20 128/55 (79) 100 Nasal Cannula 2.0 98.0 09/22/19 21:29 74 125/49 09/22/19 21:28 74 125/49 09/22/19 20:00 Nasal Cannula 2.0 09/22/19 19:08 97.5 74 20 125/49 (74) 97 Nasal Cannula 2.0 97.5 09/22/19 13:57 68 115/51 09/22/19 11:00 97.9 68 18 115/51 (72) 94 Nasal Cannula 2.0 97.9 09/22/19 09:39 62 104/53 09/22/19 08:24 97 Nasal Cannula 2.0 09/22/19 08:00 Nasal Cannula 2.0 09/22/19 07:00 97.5 62 20 104/53 (70) 100 Nasal Cannula 2.0 97.5 Laboratory Laboratory Laboratory Tests Test 09/22/19 17:32 09/22/19 20:50 09/23/19 03:35 09/23/19 03:53 Glucose (Fingerstick) 139 mg/dL (70-99) 157 mg/dL (70-99) Thyroid Stimulating Hormone (TSH) 3.794 uIU/mL (0.358-3.74) Triglycerides Level 239 mg/dL (0-150) Cholesterol Level 139 mg/dL (0-200) LDL Cholesterol, Calculated 40 mg/dL (0-100) VLDL Cholesterol, Calculated 48 mg/dL (0-40) Non-HDL Cholesterol Calculated 88 mg/dL (0-129) HDL Cholesterol 51 mg/dL (40-60) Cholesterol/HDL Ratio 2.7 Test 09/23/19 07:47 09/23/19 15:13 Glucose (Fingerstick) 125 mg/dL (70-99) 88 mg/dL (70-99) Medication Medications Current Medications Info (PHARMACY MONITORING -- do not chart) 1 each PRN DAILY PRN MC SEE COMMENTS; Start 09/23/19 at 08:45; Status UNV Info (PHARMACY MONITORING -- do not chart) 1 each PRN DAILY PRN MC SEE COMMENTS; Start 09/23/19 at 08:45; Status UNV Insulin Glargine (Lantus Syringe) 8 unit QHS SQ Last administered on 09/22/19at 21:40; Start 09/22/19 at 21:00 Metoprolol Succinate (Toprol Xl) 25 mg QHS PO Last administered on 09/22/19at 21:28; Start 09/22/19 at 21:00 Non-Formulary Medication (Insulin Detemir (Levemir Flextouch)) 8 unit HS SQ ; Start 09/22/19 at 21:00; Status UNV Non-Formulary Medication (Naloxegol Oxalate (Movantik)) 25 mg DAILY PO ; Start 09/23/19 at 09:00; Status UNV Non-Formulary Medication (Vit B Cmplx 3/ Fa/Vit C/Biotin (Vol-Care Rx Tablet)) 1 each DAILY PO ; Start 09/23/19 at 09:00; Status UNV Sodium Chloride 1,000 ml @ 400 mls/hr Q2H30M PRN IV PATENCY; Start 09/23/19 at 09:00; Stop 09/23/19 at 19:00 Sodium Chloride 1,000 ml @ 1,000 mls/hr Q1H PRN IV hypotension; Start 09/23/19 at 09:00; Stop 09/23/19 at 19:00 Comment Review of Relevant I have reviewed the following items gabbi (where applicable) has been applied. TAYLOR KELLER MD Sep 23, 2019 16:55
--- NOTE | 2019-09-23 17:34 | NUR ---
Pt finished dialysis earlier, 1 L was taken off. bed was inaccurate on weight. 148systolic BP. BS 88. Pt was discharged to home with self care. Contacted daughter via phone left message, to inform she had left for home. Pt had not eaten therefore she was not given Insulin. Rest of meds were given up to date/time. DC IV by the RN
[2019-09-24 03:10] LABS: HEMOGLOBIN A1C 5.7 % (4.8-5.6)
--- NOTE | 2019-09-25 22:03 | PDOC ---
Provider Note Provider Note Discharge summary dictated.#[id number]. CARMITA WALL MD Sep 25, 2019 22:03
--- NOTE | 2019-09-26 01:47 | DS ---
DATE OF DISCHARGE: 09/23/2019 REASON FOR ADMISSION TO THE HOSPITAL: Problems with speech, possible TIA. CONSULTATIONS: Dr. Diamond. PROCEDURES DONE: 1. CT head. 2. MRI of the brain. 3. CT angiogram of the neck. 4. Hemodialysis. 5. Echocardiogram. HOSPITAL COURSE: The patient is a 69-year-old female with history of previous stroke. She has a history of seizures and end-stage renal disease. She has left hemiparesis. She had problem with speech, not able to comprehend words. The patient was admitted to the hospital with possible TIA and that improved over time. Her CT head was negative. MRI of the brain negative for acute stroke. Had a head and neck CTA, some high-grade narrowing of the bilateral paraclinoid internal carotid arteries, right greater than the left and distal vertebral artery stenosis and the patient is already taking Plavix. Aspirin was added to the regimen. The patient was dialyzed in the hospital. The patient had an echocardiogram. She also had a C2-C3 stenosis of the spinal canal. Echocardiogram showed a good left ventricular function at 65% and the patient was discharged home. She is supposed to continue outpatient dialysis 3 times a week. FINAL DIAGNOSES: 1. Problems with speech resolved ?TIA. No evidence of acute stroke on MRI. 2. Internal carotid artery stenosis. Aspirin was added to Plavix.Not a surgical candidate. 3. End-stage renal disease, on hemodialysis 3 times a week. 4. History of seizures, on Keppra, stable. 5. Previous stroke with left hemiparesis. 6. Hypertension. 7. Hyperlipidemia. 8. Morbid obesity. 9.DM type 2,IDDM DISPOSITION: Home. DISCHARGE MEDICATIONS: See MRAD for discharge medications. CARMITA WALL MD DR: EDIE/ayan JOB#: [id number] / [id number] HARLEEN
== END 2019-09-23 17:30 | disposition home or self-care (01) | DRG 67 ==
LOC: ER 19:00 → 6 SOUTH 20:45 → ER 21:25
PROVIDERS: ADMIT Internal Medicine; ATTEND Internal Medicine
PROC: 5A1D70Z Performance of Urinary Filtration, Intermittent, Less than 6 Hours Per Day (ICD-10-PCS; principal; 2019-09-22)
PROC: 5A1D70Z Performance of Urinary Filtration, Intermittent, Less than 6 Hours Per Day (ICD-10-PCS; 2019-09-23)
DX: I65.23 Occlusion and stenosis of bilateral carotid arteries (principal); N18.6 End stage renal disease; I13.2 Hypertensive heart and chronic kidney disease with heart failure and with stage 5 chronic kidney disease, or end stage renal disease; I69.354 Hemiplegia and hemiparesis following cerebral infarction affecting left non-dominant side; E11.22 Type 2 diabetes mellitus with diabetic chronic kidney disease; I50.9 Heart failure, unspecified; E78.5 Hyperlipidemia, unspecified; D64.9 Anemia, unspecified; E66.01 Morbid (severe) obesity due to excess calories; G40.909 Epilepsy, unspecified, not intractable, without status epilepticus; G93.89 Other specified disorders of brain; E21.3 Hyperparathyroidism, unspecified; K21.9 Gastro-esophageal reflux disease without esophagitis; K59.00 Constipation, unspecified; M10.9 Gout, unspecified; J44.9 Chronic obstructive pulmonary disease, unspecified; W18.30XA Fall on same level, unspecified, initial encounter; F41.9 Anxiety disorder, unspecified; F32.9 Major depressive disorder, single episode, unspecified; M48.02 Spinal stenosis, cervical region; Z99.2 Dependence on renal dialysis; Z83.3 Family history of diabetes mellitus; Z82.49 Family history of ischemic heart disease and other diseases of the circulatory system; Z99.3 Dependence on wheelchair; Z90.710 Acquired absence of both cervix and uterus; Z90.49 Acquired absence of other specified parts of digestive tract; Z98.891 History of uterine scar from previous surgery; Z87.891 Personal history of nicotine dependence; Z79.82 Long term (current) use of aspirin; Z79.4 Long term (current) use of insulin; Z79.02 Long term (current) use of antithrombotics/antiplatelets; Y93.89 Activity, other specified; Y92.89 Other specified places as the place of occurrence of the external cause; Y99.8 Other external cause status
CPT/HCPCS: 36415; 70450; 70496; 70498; 70551; 71045; 72125; 80053; 80061; 82962; 83036; 84443; 85025; 93005; 93308; 94640; 96372; J1644; J1815; J1885; J7613; J8597; Q9967; 92610; 99285-25; G0378

== ENCOUNTER 2019-10-04 09:22 | Observation (INO) | payer MEDICAID ==
[~2019-10-04] VITALS: Ht 165.1 cm; Wt 120.2 kg
[~2019-10-04 09:22] MED LIST changes: +ASPI81TA50 PO
--- NOTE | 2019-10-04 10:17 | RAD ---
EXAM: CT Head without IV contrast CLINICAL HISTORY: Altered mental status. COMPARISON: None. TECHNIQUE: Routine CT of the head without contrast. Soft tissues and bone windows were reviewed. PQRS compliance statement - One or more of the following individualized dose reduction techniques were utilized for this study: 1. Automated exposure control 2. Adjustment of the mA and/or kV according to patient size 3. Use of iterative reconstruction technique FINDINGS: There is no evidence of hemorrhage, mass or extra-axial fluid collection. Encephalomalacia right frontoparietal region from known prior infarct. Chronic appearing left cerebellar infarct. Subcortical, periventricular and deep white matter hypoattenuation likely changes of chronic small vessel disease. Aguirre-white differentiation is maintained with no evidence of edema. There is no mass effect or shift of the intracranial structures. The ventricles, basilar cisterns and cortical sulci are normal in size and configuration for the patients stated age. The calvarium demonstrates no evidence of fracture or focal lesion. There is normal aeration of the visualized paranasal sinuses and mastoid air cells. The visualized portions of the orbits are normal. Atherosclerotic calcifications of the intracranial internal carotid and vertebral arteries is seen. IMPRESSION: 1. No evidence for acute intracranial process. 2. Changes of old right frontoparietal infarct and left cerebellar infarct are essentially unchanged. 3. White matter changes likely of chronic small vessel disease. Electronically signed by: Daniele Matias MD (10/04/2019 10:14 AM) [id number]
--- NOTE | 2019-10-04 10:19 | RAD ---
EXAM: AP View of the chest DATE: 10/04/2019 10:00 AM INDICATION: 09/22/2019 COMPARISON: No Prior FINDINGS/ IMPRESSION: Heart is top normal in size. Aorta is mildly tortuous. Left lung base airspace opacities are seen with small left pleural effusion, may represent atelectasis or developing consolidation. No pneumothorax. Right subclavian stent is seen. Electronically signed by: Daniele Matias MD (10/04/2019 10:16 AM) [id number]
--- NOTE | 2019-10-04 10:33 | PHYS DOC ---
Past Medical History Past Medical History: COPD, CVA, Diabetes-Type II, Hypertension, Renal Disease, Renal Failure, Seizure, Other Past Surgical History: Other Additional Past Surgical Histo: Dialysis shunt R) upper arm being used, shunt in left arm-not used anymore. Alcohol Use: None Drug Use: None Adult General Chief Complaint Chief Complaint: ALTERED MENTAL STATUS HPI HPI Patient is a 69 year old female who was brought here from dialysis center due to altered mental status. Patient had end-stage renal failure, she was at dialysis today, she was 2 hours into the 4 hours section, the staff there found her to be very confused, altered mental status, so they called EMS to take her here for evaluation. On arrival to ER, patient was found to have hypertension, patient however denies any symptom, denies any chest pain, no abdominal pain, no nausea vomiting. She denies any fever. \ All other ROS is negative unless otherwise noted in HPI Review of Systems Review of Systems See above Current Medications Current Medications Current Medications Medications (Trade) Dose Ordered Sig/Yumiko Start Time Stop Time Status Last Admin Dose Admin Clonidine HCl (Catapres) 0.2 mg 1X ONCE 10/04/19 12:30 10/04/19 12:31 DC 10/04/19 12:39 0.2 MG Allergies Allergies Allergies Coded Allergies Type Severity Reaction Last Updated Verified diphenhydramine Allergy Intermediate 09/21/19 Yes Physical Exam Physical Exam See above Constitutional: Well developed, well nourished, no acute distress, non-toxic appearance. [] HENT: Normocephalic, atraumatic, bilateral external ears normal, oropharynx moist, no oral exudates, nose normal. [] Eyes: PERRLA, EOMI, conjunctiva normal, no discharge. [] Neck: Normal range of motion, no tenderness, supple, no stridor. [] Cardiovascular:Heart rate regular rhythm, no murmur [] Lungs & Thorax: Bilateral breath sounds clear to auscultation [] Abdomen: Bowel sounds normal, soft, no tenderness, no masses, no pulsatile masses. [] Skin: Warm, dry, no erythema, no rash. [] Back: No tenderness, no CVA tenderness. [] Extremities: No tenderness, no cyanosis, no clubbing, ROM intact, no edema. [] Neurologic: Alert and oriented X 3, normal motor function, normal sensory function, no focal deficits noted. [] Psychologic: Affect normal, judgement normal, mood normal. [] Current Patient Data Vital Signs Vital Signs Date Time Temp Pulse Resp B/P (MAP) Pulse Ox O2 Delivery O2 Flow Rate FiO2 10/04/19 13:00 62 18 94 10/04/19 12:39 203/79 10/04/19 09:30 97.9 Room Air 97.9 Lab Values Laboratory Tests Test 10/04/19 09:55 10/04/19 10:50 Glucose (Fingerstick) 110 mg/dL (70-99) H White Blood Count 4.6 x10^3/uL (4.0-11.0) Red Blood Count 4.19 x10^6/uL (3.50-5.40) Hemoglobin 13.7 g/dL (12.0-15.5) Hematocrit 43.0 % (36.0-47.0) Mean Corpuscular Volume 103 fL (79-100) H Mean Corpuscular Hemoglobin 33 pg (25-35) Mean Corpuscular Hemoglobin Concent 32 g/dL (31-37) Red Cell Distribution Width 14.2 % (11.5-14.5) Platelet Count 139 x10^3/uL (140-400) L Neutrophils (%) (Auto) 45 % (31-73) Lymphocytes (%) (Auto) 36 % (24-48) Monocytes (%) (Auto) 17 % (0-9) H Eosinophils (%) (Auto) 2 % (0-3) Basophils (%) (Auto) 1 % (0-3) Neutrophils # (Auto) 2.1 x10^3/uL (1.8-7.7) Lymphocytes # (Auto) 1.7 x10^3/uL (1.0-4.8) Monocytes # (Auto) 0.8 x10^3/uL (0.0-1.1) Eosinophils # (Auto) 0.1 x10^3/uL (0.0-0.7) Basophils # (Auto) 0.0 x10^3/uL (0.0-0.2) Prothrombin Time 12.2 SEC (11.7-14.0) Prothrombin Time INR 0.9 (0.8-1.1) Activated Partial Thromboplast Time 32 SEC (24-38) Sodium Level 142 mmol/L (136-145) Potassium Level 5.0 mmol/L (3.5-5.1) Chloride Level 101 mmol/L (98-107) Carbon Dioxide Level 32 mmol/L (21-32) Anion Gap 9 (6-14) Blood Urea Nitrogen 24 mg/dL (7-20) H Creatinine 4.3 mg/dL (0.6-1.0) H Estimated GFR (Cockcroft-Gault) 12.4 BUN/Creatinine Ratio 6 (6-20) Glucose Level 122 mg/dL (70-99) H Calcium Level 9.0 mg/dL (8.5-10.1) Magnesium Level 1.7 mg/dL (1.8-2.4) L Total Bilirubin 0.3 mg/dL (0.2-1.0) Aspartate Amino Transferase (AST) 22 U/L (15-37) Alanine Aminotransferase (ALT) 18 U/L (14-59) Alkaline Phosphatase 141 U/L (46-116) H Troponin I Quantitative < 0.017 ng/mL (0.000-0.055) Total Protein 7.4 g/dL (6.4-8.2) Albumin 3.1 g/dL (3.4-5.0) L Albumin/Globulin Ratio 0.7 (1.0-1.7) L Laboratory Tests 10/04/19 10:50 Laboratory Tests 10/04/19 10:50 EKG EKG EKG WAS READ BY THIS PHYSICIAN AT 1027, RATE OF 56 BPM, SINUS RHYTHM, NO STEMI. Radiology/Procedures Radiology/Procedures [][facility] [address] [place] [address] IMAGING REPORT Signed PATIENT: MARKUS HE ACCOUNT: [id number] : 1950 LOCATION: ER AGE: 69 SEX: F EXAM STATUS: REG ER ORD. PHYSICIAN: VAN DURAN DO REASON: AMS during dialysis PROCEDURE: CT HEAD WO CONTRAST EXAM: CT Head without IV contrast CLINICAL HISTORY: Altered mental status. COMPARISON: None. TECHNIQUE: Routine CT of the head without contrast. Soft tissues and bone windows were reviewed. PQRS compliance statement - One or more of the following individualized dose reduction techniques were utilized for this study: 1. Automated exposure control 2. Adjustment of the mA and/or kV according to patient size 3. Use of iterative reconstruction technique FINDINGS: There is no evidence of hemorrhage, mass or extra-axial fluid collection. Encephalomalacia right frontoparietal region from known prior infarct. Chronic appearing left cerebellar infarct. Subcortical, periventricular and deep white matter hypoattenuation likely changes of chronic small vessel disease. Aguirre-white differentiation is maintained with no evidence of edema. There is no mass effect or shift of the intracranial structures. The ventricles, basilar cisterns and cortical sulci are normal in size and configuration for the patients stated age. The calvarium demonstrates no evidence of fracture or focal lesion. There is normal aeration of the visualized paranasal sinuses and mastoid air cells. The visualized portions of the orbits are normal. Atherosclerotic calcifications of the intracranial internal carotid and vertebral arteries is seen. IMPRESSION: 1. No evidence for acute intracranial process. 2. Changes of old right frontoparietal infarct and left cerebellar infarct are essentially unchanged. 3. White matter changes likely of chronic small vessel disease. Electronically signed by: Daniele Ye MD (10/04/2019 10:14 AM) [id number] DICTATED and SIGNED BY: DANIELE YE MD DATE: 10/04/19 1014 [facility] [address] [place], [place] [id number] IMAGING REPORT Signed PATIENT: MARKUS HE ACCOUNT: [id number] : 1950 LOCATION: ER AGE: 69 SEX: F EXAM STATUS: REG ER ORD. PHYSICIAN: VAN DURAN DO REASON: SOA PROCEDURE: CHEST AP ONLY EXAM: AP View of the chest DATE: 10/04/2019 10:00 AM INDICATION: 09/22/2019 COMPARISON: No Prior FINDINGS/ IMPRESSION: Heart is top normal in size. Aorta is mildly tortuous. Left lung base airspace opacities are seen with small left pleural effusion, may represent atelectasis or developing consolidation. No pneumothorax. Right subclavian stent is seen. Electronically signed by: Daniele Ye MD (10/04/2019 10:16 AM) [id number] DICTATED and SIGNED BY: DANIELE YE MD DATE: 10/04/19 1016 Course & Med Decision Making Course & Med Decision Making Pertinent Labs and Imaging studies reviewed. (See chart for details Patient was found to be hypertensive, she will need to be admitted to finish her dialysis. [] Dragon Disclaimer Dragon Disclaimer This electronic medical record was generated, in whole or in part, using a voice recognition dictation system. Departure Departure Impression: Primary Impression: Altered mental status Additional Impressions: Hypertension ESRD (end stage renal disease) on dialysis Disposition: ADMITTED INPATIENT Admitting Physician: Luca Wall Condition: STABLE Referrals: LUCA WALL MD (PCP) Problem Qualifiers VAN DURAN DO Oct 04, 2019 10:33
--- NOTE | 2019-10-04 10:50 | EKG ---
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
[2019-10-04 11:02] LABS: BASO % 1 % (0-3); EOS # 0.1 x10^3/uL (0.0-0.7); EOS % 2 % (0-3); HEMOGLOBIN 13.7 g/dL (12.0-15.5); LYMPH # 1.7 x10^3/uL (1.0-4.8); LYMPH % 36 % (24-48); MEAN CORPUSCULAR HEMOGLOBIN 33 pg (25-35); MEAN CORPUSCULAR HGB CONC 32 g/dL (31-37); MEAN CORPUSCULAR VOLUME 103 fL (79-100); MONO # 0.8 x10^3/uL (0.0-1.1); MONO % 17 % (0-9); NEUT # 2.1 x10^3/uL (1.8-7.7); NEUT % 45 % (31-73); PLATELET COUNT 139 x10^3/uL (140-400); RED BLOOD COUNT 4.19 x10^6/uL (3.50-5.40); RED CELL DISTRIBUTION WIDTH 14.2 % (11.5-14.5); WHITE BLOOD COUNT 4.6 x10^3/uL (4.0-11.0)
[2019-10-04 11:10] LABS: CREATININE 4.3 mg/dL (0.6-1.0); GFR 12.4
[2019-10-04 11:17] LABS: ALBUMIN 3.1 g/dL (3.4-5.0); ALBUMIN/GLOBULIN RATIO 0.7 (1.0-1.7); TOTAL BILIRUBIN 0.3 mg/dL (0.2-1.0); TOTAL PROTEIN 7.4 g/dL (6.4-8.2)
[2019-10-04 11:26] LABS: PROTHROMBIN TIME PATIENT 12.2 SEC (11.7-14.0)
[2019-10-04] MEDS ORDERED: cloNIDine HCL 0.1 MG TABLET PO ONE (12:30)
[2019-10-04] MEDS ORDERED: ONDANSETRON PF 4 MG/2 ML VIAL. IV PRN (13:30)
[2019-10-04] MEDS ORDERED: MORPHINE SULFATE 2 MG/ML VIAL. IV PRN (13:30)
[2019-10-04] MEDS ORDERED: MORPHINE SULFATE 4 MG/ML VIAL. IV ONE (13:30)
[2019-10-04 16:20] VITALS: BP 134/59
--- NOTE | 2019-10-04 16:26 | NUR ---
Patient Yuni Maguire, 69 year-old female admitted due to altered mental status, ESRD. She's alert, oriented x 4, arrived on the unit at 1610 via bed. She is oriented to the unit policies and procedures, call light placed within reach.
[2019-10-04] MEDS ORDERED: ENOXAPARIN 40 MG/0.4 ML SYRINGE. SQ SCH (17:15)
[2019-10-04] MEDS ORDERED: ALPRAZolam 0.25 MG TABLET PO PRN (17:15)
[2019-10-04] MEDS ORDERED: DEXTROSE 50% 25 GM / 50ML DISP.SYRIN. IV PRN (17:15)
[2019-10-04] MEDS ORDERED: BUTALB/APAP/CAFEIN 50/325/40MG TABLET. PO PRN (17:15)
--- NOTE | 2019-10-04 17:22 | PDOC ---
Provider Note Provider Note Pt seen.H&P dictated.#[id number] CARMITA WALL MD Oct 04, 2019 17:22
[2019-10-04] MEDS: INSULIN LISPRO 300 UNITS/3 ML VIAL. SQ SCH ×2 (18:00)
--- NOTE | 2019-10-04 18:12 | HP ---
ADMIT DATE: 10/04/2019 LOCATION: Room #654. REASON FOR ADMISSION TO THE HOSPITAL: Altered mental status, headache, and end-stage renal disease, on dialysis. HISTORY OF PRESENT ILLNESS: The patient is a 69-year-old female patient with history of previous stroke. She was admitted to the hospital a couple of weeks ago, had a complete workup done including CT head, MRI of the brain, carotid Doppler, echocardiogram, and she had some mild internal carotid stenosis, but otherwise she was doing relatively well. She has an old stroke, has a history of seizures, on Keppra. She was going to dialysis today. She is usually on the dialysis chair for 4 hours. After 2 hours yesterday, she was having headache, she was confused, altered mental status, and had to stop and was sent to the hospital. In the ER, her blood pressure was high at 170/70, pulse 60, respirations 17, and saturating 91% on room air, and blood pressure went up to 203/79 later on. PAST MEDICAL HISTORY: She was in the hospital 2 weeks ago for headache, problems with speech, was thought she may have TIA and then prior to that, she was here 4 weeks ago, had a complete workup done. PAST MEDICAL HISTORY: Stroke, seizures, hypertension, hyperlipidemia, diabetes, obesity, anxiety, depression, and end-stage renal disease, on dialysis. PAST SURGICAL HISTORY: AV shunt. ALLERGIES: BENADRYL. MEDICATIONS: Allopurinol daily, Xanax 0.25, Sensipar 30 mg daily, Celexa 20 mg daily, Plavix 75 mg daily, metoprolol 25 mg daily, Movantik 25 mg daily, B complex daily, clonidine 0.1 three times daily, Flexeril 10 mg twice a day, gabapentin 300 mg at bedtime, hydrocodone 5/325 q.6, Levemir 18 units at bedtime, 5 units of NovoLog twice a day, Xopenex for breathing treatments, Keppra for seizures twice a day at 100 mg, Reglan 10 mg 4 times daily, Protonix 40 mg daily, senna 1 daily, simvastatin 40 mg daily, and aspirin 81 mg daily. PERSONAL HISTORY: Ex-smoker, stopped many years ago. SOCIAL HISTORY: Denies smoking. No alcohol. The patient has dialysis 3 times a week, Wednesday, Wednesday, and Wednesday. FAMILY HISTORY: Positive for diabetes and heart disease. PHYSICAL EXAMINATION: GENERAL: The patient is feeling better, seen in the hospital bed, on the phone. VITAL SIGNS: Temperature 97, pulse 63, respirations 20, blood pressure 134/59, and oxygen saturation 93% on room air. HEENT: Head is atraumatic. Pupils are equal. Oral cavity: No congestion. NECK: Supple, short neck. CHEST: Symmetrical. CARDIOVASCULAR: S1, S2. LUNGS: Clear to auscultation. ABDOMEN: The patient is morbidly obese. Soft, bowel sounds present, no mass palpable. EXTERNAL GENITALIA: No Phillips. RECTAL: Deferred. EXTREMITIES: No calf tenderness, no edema. 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 LABORATORY DATA: Shows a white count 4.6, hemoglobin 13.7, and platelets 139. INR 0.9. Electrolytes show sodium 142, potassium 5.0, chloride 101, bicarbonate 32, BUN 24, creatinine 4.3, glucose 122. LFTs were normal. Had a chest x-ray, negative. Had a CT head, old stroke and as mentioned, the patient had MRI of the brain 2 weeks ago. No strokes. FINAL IMPRESSION: 1. Change in mental status related to Dialysis, back to normal now. 2. Accelerated hypertension. 3. History of previous strokes. 4. History of seizures, on Keppra. 5. End-stage renal disease, on hemodialysis.M<W<F 6. Migrane headaches PLAN: At this time, was admitted for observation. Had a CT head, negative. We will keep her blood pressure under control added Amlodipine to BP regimen. probably should be able to go home tomorrow.Fiorecet for headaches.Pt was in hospital 2 weeks ago ,had all the work up done for stroke evaluation. CARMITA WALL MD DR: EDIE/ayan JOB#: [id number] / [id number] HARLEEN
[2019-10-04] MEDS: CALCIUM ACETATE 667 MG CAPSULE PO SCH (18:30)
[2019-10-04] MEDS: FOLIC/VIT B COMP W-C (RENAL) TABLET. PO SCH (18:30)
[2019-10-04] MEDS: CLOPIDOGREL BISULFATE 75 MG TABLET PO SCH (18:30)
[2019-10-04] MEDS: METOCLOPRAMIDE 10 MG TABLET. PO SCH ×2 (18:31→21:29)
[2019-10-04] MEDS: ALLOPURINOL 100 MG TABLET. PO SCH (18:31)
[2019-10-04] MEDS: CITALOPRAM 10 MG TABLET. PO SCH (18:31)
[2019-10-04] MEDS: ASPIRIN ENTERIC COATED 81 MG TABLET.DR. PO SCH (18:31)
[2019-10-04] MEDS: CINACALCET HCL 30 MG TABLET PO SCH (18:31)
[2019-10-04] MEDS: HYDROcodone/APAP 5/325MG 1 TAB TABLET PO PRN (18:36)
[2019-10-04] MEDS: PANTOPRAZOLE 40 MG TABLET.DR. PO SCH (18:36)
[2019-10-04 19:22] VITALS: BP 115/53
[2019-10-04] MEDS: ALBUTEROL SULFATE 2.5 MG/3 ML NEBU. NEB SCH (20:05)
[2019-10-04] MEDS ORDERED: GABAPENTIN 300 MG CAPSULE. PO SCH (21:00)
[2019-10-04] MEDS ORDERED: SIMVASTATIN 40 MG TABLET. PO SCH (21:00)
[2019-10-04] MEDS ORDERED: INSULIN GLARGINE SYRINGE. SQ SCH (21:00)
[2019-10-04] MEDS ORDERED: METOPROLOL SUCC 24HR ER 25 MG TAB.ER.24H. PO SCH (21:00)
[2019-10-04] MEDS: SENNOSIDES 8.6 MG TABLET PO SCH (21:27)
[2019-10-04] MEDS: levETIRAcetam 500 MG TABLET PO SCH (21:27)
[2019-10-04] MEDS: cloNIDine HCL 0.1 MG TABLET PO SCH (21:28)
[2019-10-04] MEDS: CYCLOBENZAPRINE 10 MG TABLET. PO SCH (21:29)
[2019-10-04] MEDS: HEPARIN for SUB-Q USE 5,000 UNIT/ML VIAL. SQ SCH (22:41)
[2019-10-04 23:42] VITALS: BP 146/47
[2019-10-05 03:43] VITALS: BP 144/59
[2019-10-05] MEDS: HEPARIN for SUB-Q USE 5,000 UNIT/ML VIAL. SQ SCH ×2 (06:02→14:00)
[2019-10-05 07:00] VITALS: BP 168/61
[2019-10-05] MEDS: ALBUTEROL SULFATE 2.5 MG/3 ML NEBU. NEB SCH ×3 (07:52→15:51)
[2019-10-05] MEDS: INSULIN LISPRO 300 UNITS/3 ML VIAL. SQ SCH ×3 (08:00→12:00)
[2019-10-05] MEDS: ASPIRIN ENTERIC COATED 81 MG TABLET.DR. PO SCH (08:33)
[2019-10-05] MEDS: FOLIC/VIT B COMP W-C (RENAL) TABLET. PO SCH (08:33)
[2019-10-05] MEDS: PANTOPRAZOLE 40 MG TABLET.DR. PO SCH (08:33)
[2019-10-05] MEDS: SENNOSIDES 8.6 MG TABLET PO SCH (08:34)
[2019-10-05] MEDS: CITALOPRAM 10 MG TABLET. PO SCH (08:34)
[2019-10-05] MEDS: METOCLOPRAMIDE 10 MG TABLET. PO SCH ×2 (08:34→12:17)
[2019-10-05] MEDS: levETIRAcetam 500 MG TABLET PO SCH (08:34)
[2019-10-05] MEDS: ALLOPURINOL 100 MG TABLET. PO SCH (08:34)
[2019-10-05] MEDS: CLOPIDOGREL BISULFATE 75 MG TABLET PO SCH (08:34)
[2019-10-05] MEDS: CALCIUM ACETATE 667 MG CAPSULE PO SCH ×2 (08:34→12:17)
[2019-10-05] MEDS: CINACALCET HCL 30 MG TABLET PO SCH (08:34)
[2019-10-05] MEDS: CYCLOBENZAPRINE 10 MG TABLET. PO SCH (08:35)
[2019-10-05] MEDS: HYDROcodone/APAP 5/325MG 1 TAB TABLET PO PRN (08:46)
[2019-10-05] MEDS ORDERED: NON FORMULARY ITEM (Naloxegol Oxalate (Movantik) 25 MG) PO SCH (09:00)
--- NOTE | 2019-10-05 09:55 | PDOC ---
PROGRESS NOTES Subjective Subjective pt feels ok ,back to base line Objective Objective Vital Signs Date Time Temp Pulse Resp B/P (MAP) Pulse Ox O2 Delivery O2 Flow Rate FiO2 10/05/19 08:46 18 95 Room Air 10/05/19 07:00 97.9 61 168/61 (96) 97.9 Intake and Output 10/05/19 07:00 Intake Total 120 ml Balance 120 ml Intake Oral 120 ml Physical Exam Abdomen: Normal bowel sounds, Soft Heart: Regular rate Extremities: No clubbing General: Alert, Oriented X3, Cooperative MUSCULOSKELETAL: No joint tenderness, No deformity, No swelling Neuro: Normal speech Psych/Mental Status: Mental status NL Skin: No breakdown Diagnosis Problem List Problems Medical Problems: (1) Altered mental status Status: Acute (2) ESRD (end stage renal disease) on dialysis Status: Acute (3) Hypertension Status: Acute Assessment Assessment Problems Medical Problems: (1) Altered mental status Status: Acute (2) ESRD (end stage renal disease) on dialysis Status: Acute (3) Hypertension Status: Acute FINAL IMPRESSION: 1. Change in mental status, back to normal now. 2. Accelerated hypertension. 3. History of previous strokes. 4. History of seizures, on Keppra. 5. End-stage renal disease, on hemodialysis. PLAN: d/c home today. start on amlodipine for bp control. fiorecet for headaches. spoke with renal , no dialysis planned for today. At this time, was admitted for observation. Had a CT head, negative. We will keep her blood pressure under control. Get dialyzed tomorrow, probably should be able to go home tomorrow. Plan Plan of Care Problems Medical Problems: (1) Altered mental status Status: Acute (2) ESRD (end stage renal disease) on dialysis Status: Acute (3) Hypertension Status: Acute Comment Review of Relevant I have reviewed the following items gabbi (where applicable) has been applied. Labs Laboratory Tests Test 10/04/19 09:55 10/04/19 10:50 10/04/19 18:59 10/04/19 21:15 Glucose (Fingerstick) 110 mg/dL (70-99) 125 mg/dL (70-99) 149 mg/dL (70-99) White Blood Count 4.6 x10^3/uL (4.0-11.0) Red Blood Count 4.19 x10^6/uL (3.50-5.40) Hemoglobin 13.7 g/dL (12.0-15.5) Hematocrit 43.0 % (36.0-47.0) Mean Corpuscular Volume 103 fL (79-100) Mean Corpuscular Hemoglobin 33 pg (25-35) Mean Corpuscular Hemoglobin Concent 32 g/dL (31-37) Red Cell Distribution Width 14.2 % (11.5-14.5) Platelet Count 139 x10^3/uL (140-400) Neutrophils (%) (Auto) 45 % (31-73) Lymphocytes (%) (Auto) 36 % (24-48) Monocytes (%) (Auto) 17 % (0-9) Eosinophils (%) (Auto) 2 % (0-3) Basophils (%) (Auto) 1 % (0-3) Neutrophils # (Auto) 2.1 x10^3/uL (1.8-7.7) Lymphocytes # (Auto) 1.7 x10^3/uL (1.0-4.8) Monocytes # (Auto) 0.8 x10^3/uL (0.0-1.1) Eosinophils # (Auto) 0.1 x10^3/uL (0.0-0.7) Basophils # (Auto) 0.0 x10^3/uL (0.0-0.2) Prothrombin Time 12.2 SEC (11.7-14.0) Prothromb Time International Ratio 0.9 (0.8-1.1) Activated Partial Thromboplast Time 32 SEC (24-38) Sodium Level 142 mmol/L (136-145) Potassium Level 5.0 mmol/L (3.5-5.1) Chloride Level 101 mmol/L (98-107) Carbon Dioxide Level 32 mmol/L (21-32) Anion Gap 9 (6-14) Blood Urea Nitrogen 24 mg/dL (7-20) Creatinine 4.3 mg/dL (0.6-1.0) Estimated GFR (Cockcroft-Gault) 12.4 BUN/Creatinine Ratio 6 (6-20) Glucose Level 122 mg/dL (70-99) Calcium Level 9.0 mg/dL (8.5-10.1) Magnesium Level 1.7 mg/dL (1.8-2.4) Total Bilirubin 0.3 mg/dL (0.2-1.0) Aspartate Amino Transf (AST/SGOT) 22 U/L (15-37) Alanine Aminotransferase (ALT/SGPT) 18 U/L (14-59) Alkaline Phosphatase 141 U/L (46-116) Troponin I Quantitative < 0.017 ng/mL (0.000-0.055) Total Protein 7.4 g/dL (6.4-8.2) Albumin 3.1 g/dL (3.4-5.0) Albumin/Globulin Ratio 0.7 (1.0-1.7) Test 10/05/19 07:29 Glucose (Fingerstick) 72 mg/dL (70-99) Medications Current Medications Acetaminophen/ Butalbital/ Caffeine (Fioricet) 1 tab PRN Q6HRS PRN PO MIGRAINE HEADACHE; Start 10/04/19 at 17:15 Acetaminophen/ Hydrocodone Bitart (Lortab 5/325) 1 tab PRN Q6HRS PRN PO PAIN Last administered on 10/05/19 08:46; Start 10/04/19 at 17:15 Albuterol Sulfate (Ventolin Neb Soln) 2.5 mg RTQID NEB Last administered on 07:52; Start 10/04/19 at 20:00 Allopurinol (Zyloprim) 100 mg DAILY PO Last administered on 10/05/19 08:34; Start 10/04/19 at 18:00 Alprazolam (Xanax) 0.25 mg PRN BID PRN PO ANXIETY / AGITATION; Start 10/04/19 at 17:15 Aspirin (Ecotrin) 81 mg DAILY PO Last administered on 10/05/19 08:33; Start 10/04/19 at 18:00 Calcium Acetate (Phoslo) 2,001 mg TIDWMEALS PO Last administered on 10/05/19 08:34; Start 10/04/19 at 18:00 Cinacalcet (Sensipar) 30 mg DAILY PO Last administered on 10/05/19 08:34; Start 10/04/19 at 18:00 Citalopram Hydrobromide (CeleXA) 10 mg DAILY PO Last administered on 10/05/19 08:34; Start 10/04/19 at 18:00 Clonidine HCl (Catapres) 0.1 mg TID PO Last administered on 10/04/19 21:28; Start 10/04/19 at 21:00 Clonidine HCl (Catapres) 0.2 mg 1X ONCE PO Last administered on 10/04/19 12:39; Start 10/04/19 at 12:30; Stop 10/04/19 at 12:31; Status DC Clopidogrel Bisulfate (Plavix) 75 mg DAILY PO Last administered on 10/05/19 08:34; Start 10/04/19 at 18:00 Cyclobenzaprine HCl (Flexeril) 10 mg BID PO Last administered on 10/05/19 08:35; Start 10/04/19 at 21:00 Dextrose (Dextrose 50%-Water Syringe) 12.5 gm PRN Q15MIN PRN IV SEE COMMENTS; Start 10/04/19 at 17:15 Enoxaparin Sodium (Lovenox 40mg Syringe) 30 mg Q24H SQ ; Start 10/04/19 at 17:15; Status UNV Gabapentin (Neurontin) 300 mg HS PO Last administered on 10/04/19 21:27; Sta rt 10/04/19 at 21:00 Heparin Sodium (Porcine) (Heparin Sodium) 5,000 unit Q8HRS SQ Last administered on 10/05/19 06:02; Start 10/04/19 at 22:00 Insulin Glargine (Lantus Syringe) 8 unit QHS SQ Last administered on 10/04/19 21:36; Start 10/04/19 at 21:00 Insulin Human Lispro (HumaLOG) 0-5 UNITS TIDWMEALS SQ ; Start 10/04/19 at 18:00 Insulin Human Lispro (HumaLOG) 5 units BIDWMEALS SQ ; Start 10/04/19 at 18:00 Levetiracetam (Keppra) 500 mg BID PO Last administered on 10/05/19 08:34; Start 10/04/19 at 21:00 Metoclopramide HCl (Reglan) 5 mg QIDACHS PO Last administered on 10/05/19 08:34; Start 10/04/19 at 18:00 Metoprolol Succinate (Toprol Xl) 25 mg QHS PO Last administered on 11/13/19at 21:28; Start 10/04/19 at 21:00 Morphine Sulfate (Morphine Sulfate) 2 mg PRN Q2HR PRN IV PAIN; Start 10/04/19 at 13:30; Stop 10/05/19 at 13:29 Morphine Sulfate (Morphine Sulfate) 4 mg 1X ONCE IV Last administered on 10/04/19at 13:23; Start 10/04/19 at 13:30; Stop 10/04/19 at 13:31; Status DC Non-Formulary Medication (Naloxegol Oxalate (Movantik)) 25 mg DAILY PO ; Start 10/05/19 at 09:00; Stop 10/04/19 at 17:55; Status DC Ondansetron HCl (Zofran) 4 mg PRN Q8HRS PRN IV NAUSEA/VOMITING; Start 10/04/19 at 13:30; Stop 10/05/19 at 13:29 Pantoprazole Sodium (Protonix) 40 mg DAILYAC PO Last administered on 10/05/19 08:33; Start 10/04/19 at 18:00 Sennosides (Senna) 8.6 mg BID PO Last administered on 10/05/19at 08:34; Start 10/04/19 at 21:00 Simvastatin (Zocor) 40 mg QHS PO Last administered on 10/04/19at 21:29; Start 10/04/19 at 21:00 Vitamin B Complex/ Vitamin C (Makayla-Britton) 1 tab DAILY PO Last administered on 10/05/19 08:33; Start 10/04/19 at 18:00 Vitals/I & O Vital Sign - Last 24 Hours 10/04/19 10/04/19 10/04/19 10/04/19 10:00 11:00 11:30 12:00 Pulse 64 56 58 62 Resp 18 19 16 17 Pulse Ox 95 95 94 94 10/04/19 10/04/19 10/04/19 10/04/19 12:30 12:39 13:00 13:39 Pulse 64 60 62 64 Resp 17 18 18 B/P (MAP) 203/79 Pulse Ox 94 94 93 10/04/19 10/04/19 10/04/19 10/04/19 14:09 14:39 15:09 16:20 Pulse 62 60 60 Resp 18 18 16 Pulse Ox 94 94 95 O2 Delivery Room Air 10/04/19 10/04/19 10/04/19 10/04/19 16:20 18:36 19:22 19:35 Temp 97.6 98.0 97.6 98.0 Pulse 63 65 Resp 20 19 18 16 B/P (MAP) 134/59 (84) 115/53 (73) Pulse Ox 93 93 92 O2 Delivery Room Air Room Air Room Air Room Air 10/04/19 10/04/19 10/04/19 10/04/19 20:00 20:07 21:28 21:28 Pulse 73 73 B/P (MAP) 115/53 115/53 Pulse Ox 95 O2 Delivery Room Air Room Air 10/04/19 10/05/19 10/05/19 10/05/19 23:42 03:43 07:00 07:54 Temp 98.5 98.5 97.9 98.5 98.5 97.9 Pulse 57 63 61 Resp 20 20 18 B/P (MAP) 146/47 (80) 144/59 (87) 168/61 (96) Pulse Ox 93 94 100 95 O2 Delivery Room Air Room Air Room Air Room Air 10/05/19 08:46 Resp 18 Pulse Ox 95 O2 Delivery Room Air Intake and Output 10/04/19 10/04/19 10/05/19 15:00 23:00 07:00 Intake Total 120 ml 0 ml Balance 120 ml 0 ml CARMITA WALL MD Oct 05, 2019 09:55
[2019-10-05] MEDS ORDERED: BUTA1TAB23 PO (09:58)
[2019-10-05] MEDS ORDERED: AMLO5TAB10 PO (09:58)
[2019-10-05] MEDS: cloNIDine HCL 0.1 MG TABLET PO SCH ×2 (10:17→15:46)
[2019-10-05 11:00] VITALS: BP 138/40
[2019-10-05] MEDS ORDERED: amLODIPine BESYLATE 5 MG TABLET PO ONE (11:00)
--- NOTE | 2019-10-05 12:09 | PDOC2 ---
CONSULT Date of Consult Date of Consult DATE: 10/05/19 TIME: 12:05 Reason for Consult Reason for Consult: ESRD Referring Physician Referring Physician: MAE Identification/Chief Complaint Chief Complaint CONFUSION Source Source: Chart review History of Present Illness Reason for Visit: THIS IS A 69 YR OLD WITH CONFUSION. SHE HAS ESRD AND IS ON OP HD ON MWF. YESTERDAY 2 HOURS INTO HER HD TX SHE WAS CONFUSED AND NOT VERY RESPONSIVE. BP SOMEWHAT LOW IN THE 80-[address] HEAD NEG. ADMITTED FOR FURTHER EVALUATION. LABS C/W HER ESRD. ESRD DUE TO HTN AND DM II Past Medical History Cardiovascular: CHF, HTN, Other Pulmonary: Asthma, Bronchitis, COPD, Other CENTRAL NERVOUS SYSTEM: CVA, Seizure GI: Constipation, GERD Heme/Onc: Anemia NOS Psych: Anxiety, Depression Musculoskeletal: Other Rheumatologic: Gout, Rheumatoid arthritis Renal/: Chronic renal failure Endocrine: Diabetes, Hyperparathyroidism Past Surgical History Past Surgical History: Cholecystectomy, , Hysterectomy, Other Family History Family History: Coronary Artery Disease, Hypertension, Kidney Disease Social History ALCOHOL: none Drugs: None Lives: with Family Current Problem List Problem List Problems Medical Problems: (1) Altered mental status Status: Acute (2) ESRD (end stage renal disease) on dialysis Status: Acute (3) Hypertension Status: Acute Current Medications Current Medications Current Medications Clonidine HCl (Catapres) 0.2 mg 1X ONCE PO Last administered on 10/04/19at 12:39; Start 10/04/19 at 12:30; Stop 10/04/19 at 12:31; Status DC Morphine Sulfate (Morphine Sulfate) 4 mg 1X ONCE IV Last administered on 10/04/19at 13:23; Start 10/04/19 at 13:30; Stop 10/04/19 at 13:31; Status DC Ondansetron HCl (Zofran) 4 mg PRN Q8HRS PRN IV NAUSEA/VOMITING; Start 10/04/19 at 13:30; Stop 10/05/19 at 13:29 Morphine Sulfate (Morphine Sulfate) 2 mg PRN Q2HR PRN IV PAIN; Start 10/04/19 at 13:30; Stop 10/05/19 at 13:29 Allopurinol (Zyloprim) 100 mg DAILY PO Last administered on 10/05/19at 08:34; Start 10/04/19 at 18:00 Alprazolam (Xanax) 0.25 mg PRN BID PRN PO ANXIETY / AGITATION; Start 10/04/19 at 17:15 Aspirin (Ecotrin) 81 mg DAILY PO Last administered on 10/05/19 08:33; Start 10/04/19 at 18:00 Cinacalcet (Sensipar) 30 mg DAILY PO Last administered on 10/05/19 08:34; Start 10/04/19 at 18:00 Citalopram Hydrobromide (CeleXA) 10 mg DAILY PO Last administered on 10/05/19 08:34; Start 10/04/19 at 18:00 Clonidine HCl (Catapres) 0.1 mg TID PO Last administered on 10/05/19 10:17; Start 10/04/19 at 21:00 Clopidogrel Bisulfate (Plavix) 75 mg DAILY PO Last administered on 10/05/19 08:34; Start 10/04/19 at 18:00 Cyclobenzaprine HCl (Flexeril) 10 mg BID PO Last administered on 10/05/19 08:35; Start 10/04/19 at 21:00 Gabapentin (Neurontin) 300 mg HS PO Last administered on 10/04/19 21:27; Start 10/04/19 at 21:00 Acetaminophen/ Hydrocodone Bitart (Lortab 5/325) 1 tab PRN Q6HRS PRN PO PAIN Last administered on 10/05/19 08:46; Start 10/04/19 at 17:15 Levetiracetam (Keppra) 500 mg BID PO Last administered on 10/05/19 08:34; Start 10/04/19 at 21:00 Metoclopramide HCl (Reglan) 5 mg QIDACHS PO Last administered on 10/05/19 08:34; Start 10/04/19 at 18:00 Metoprolol Succinate (Toprol Xl) 25 mg QHS PO Last administered on 10/04/19 21:28; Start 10/04/19 at 21:00 Pantoprazole Sodium (Protonix) 40 mg DAILYAC PO Last administered on 10/05/19 08:33; Start 10/04/19 at 18:00 Simvastatin (Zocor) 40 mg QHS PO Last administered on 10/04/19 21:29; Start 10/04/19 at 21:00; Stop 10/05/19 at 10:05; Status DC Insulin Human Lispro (HumaLOG) 5 units BIDWMEALS SQ ; Start 10/04/19 at 18:00 Insulin Glargine (Lantus Syringe) 8 unit QHS SQ Last administered on 10/04/19at 21:36; Start 10/04/19 at 21:00 Albuterol Sulfate (Ventolin Neb Soln) 2.5 mg RTQID NEB Last administered on 10/05/19at 11:59; Start 10/04/19 at 20:00 Non-Formulary Medication (Naloxegol Oxalate (Movantik)) 25 mg DAILY PO ; Start 10/05/19 at 09:00; Stop 10/04/19 at 17:55; Status DC Sennosides (Senna) 8.6 mg BID PO Last administered on 10/05/19at 08:34; Start 10/04/19 at 21:00 Vitamin B Complex/ Vitamin C (Makayla-Britton) 1 tab DAILY PO Last administered on 10/05/19at 08:33; Start 10/04/19 at 18:00 Calcium Acetate (Phoslo) 2,001 mg TIDWMEALS PO Last administered on 10/05/19at 08:34; Start 10/04/19 at 18:00 Acetaminophen/ Butalbital/ Caffeine (Fioricet) 1 tab PRN Q6HRS PRN PO MIGRAINE HEADACHE; Start 10/04/19 at 17:15 Insulin Human Lispro (HumaLOG) 0-5 UNITS TIDWMEALS SQ ; Start 10/04/19 at 18:00 Dextrose (Dextrose 50%-Water Syringe) 12.5 gm PRN Q15MIN PRN IV SEE COMMENTS; Start 10/04/19 at 17:15 Enoxaparin Sodium (Lovenox 40mg Syringe) 30 mg Q24H SQ ; Start 10/04/19 at 17:15; Status UNV Heparin Sodium (Porcine) (Heparin Sodium) 5,000 unit Q8HRS SQ Last administered on 10/05/19at 06:02; Start 10/04/19 at 22:00 Amlodipine Besylate (Norvasc) 5 mg DAILY PO ; Start 10/06/19 at 09:00 Amlodipine Besylate (Norvasc) 5 mg 1X ONCE PO ; Start 10/05/19 at 11:00; Stop 10/05/19 at 11:01; Status DC Atorvastatin Calcium (Lipitor) 20 mg QHS PO ; Start 10/05/19 at 21:00 Active Scripts Active Amlodipine Besylate 5 Mg Tablet 5 Mg PO DAILY 30 Days Vuqwfo-Huwotqix-Gctc 50-325-40 (Butalb/Acetaminophen/Caffeine) 1 Each Tablet 1 Tab PO PRN Q6HRS PRN 10 Days Aspir-Low (Aspirin) 81 Mg Tablet. 1 Tab PO DAILY Pantoprazole Sodium (Pantoprazole Sodium) 40 Mg Tablet.dr 40 Mg PO DAILYAC 30 Days Metoprolol Succinate ( Xl ) (Metoprolol Succinate) 25 Mg Tab.er.24h 25 Mg PO QHS 30 Days Reported Levemir Flextouch (Insulin Detemir) 100 Unit/1 Ml Insuln.pen 8 Unit SQ HS Novolog Flexpen (Insulin Aspart) 100 Unit/1 Ml Insuln.pen 5 Unit SQ BIDWMEALS [phoslo] 2,001 Mg PO TID Movantik (Naloxegol Oxalate) 25 Mg Tablet 25 Mg PO DAILY Xopenex Hfa (Levalbuterol Tartrate) 15 Gm Hfa.aer.ad 2 Puff IH QID Keppra (Levetiracetam) 500 Mg Tablet 1 Tab PO BID Vol-Care Rx Tablet (Vit B Cmplx 3/Fa/Vit C/Biotin) 1 Each Tablet 1 Each PO DAILY Clopidogrel (Clopidogrel Bisulfate) 75 Mg Tablet 1 Tab PO DAILY Alprazolam 0.25 Mg Tablet 1 Tab PO PRN BID PRN Celexa (Citalopram Hydrobromide) 10 Mg Tablet 1 Tab PO DAILY Allopurinol 100 Mg Tablet 1 Tab PO DAILY Sensipar (Cinacalcet Hcl) 30 Mg Tablet 1 Tab PO DAILY Simvastatin 40 Mg Tablet 1 Tab PO QHS Gabapentin (Gabapentin) 300 Mg Capsule 1 Cap PO HS Senna (Sennosides) 8.6 Mg Capsule 8.6 Mg PO BID Cyclobenzaprine Hcl 10 Mg Tablet 1 Tab PO BID Reglan (Metoclopramide Hcl) 10 Mg Tablet 5 Mg PO QIDACHS Clonidine Hcl 0.1 Mg Tablet 1 Tab PO TID Hydrocodone-Apap 5-325 (Hydrocodone Bit/Acetaminophen) 1 Each Tablet 1 Tab PO PRN Q6HRS PRN Allergies Allergies: Coded Allergies: diphenhydramine (Verified Allergy, Intermediate, 09/21/19) Alla MUÑOZ Review of System CONFUSED EARLIER Physical Exam General: Alert, Oriented X3, Cooperative, No acute distress HEENT: Atraumatic, PERRLA Lungs: Clear to auscultation Heart: Regular rate Abdomen: Normal bowel sounds, Soft, No tenderness Skin: No breakdown Neuro: Other (CONFUSED) Psych/Mental Status: Other (CONFUSED) MUSCULOSKELETAL: No deformity, No swelling Vitals VITALS Vital Signs Date Time Temp Pulse Resp B/P (MAP) Pulse Ox O2 Delivery O2 Flow Rate FiO2 10/05/19 12:00 Room Air 10/05/19 11:00 97.5 58 16 138/40 (72) 95 97.5 Labs Labs Laboratory Tests Test 10/04/19 09:55 10/04/19 10:50 10/04/19 18:59 10/04/19 21:15 Glucose (Fingerstick) 110 mg/dL (70-99) 125 mg/dL (70-99) 149 mg/dL (70-99) White Blood Count 4.6 x10^3/uL (4.0-11.0) Red Blood Count 4.19 x10^6/uL (3.50-5.40) Hemoglobin 13.7 g/dL (12.0-15.5) Hematocrit 43.0 % (36.0-47.0) Mean Corpuscular Volume 103 fL (79-100) Mean Corpuscular Hemoglobin 33 pg (25-35) Mean Corpuscular Hemoglobin Concent 32 g/dL (31-37) Red Cell Distribution Width 14.2 % (11.5-14.5) Platelet Count 139 x10^3/uL (140-400) Neutrophils (%) (Auto) 45 % (31-73) Lymphocytes (%) (Auto) 36 % (24-48) Monocytes (%) (Auto) 17 % (0-9) Eosinophils (%) (Auto) 2 % (0-3) Basophils (%) (Auto) 1 % (0-3) Neutrophils # (Auto) 2.1 x10^3/uL (1.8-7.7) Lymphocytes # (Auto) 1.7 x10^3/uL (1.0-4.8) Monocytes # (Auto) 0.8 x10^3/uL (0.0-1.1) Eosinophils # (Auto) 0.1 x10^3/uL (0.0-0.7) Basophils # (Auto) 0.0 x10^3/uL (0.0-0.2) Prothrombin Time 12.2 SEC (11.7-14.0) Prothromb Time International Ratio 0.9 (0.8-1.1) Activated Partial Thromboplast Time 32 SEC (24-38) Sodium Level 142 mmol/L (136-145) Potassium Level 5.0 mmol/L (3.5-5.1) Chloride Level 101 mmol/L (98-107) Carbon Dioxide Level 32 mmol/L (21-32) Anion Gap 9 (6-14) Blood Urea Nitrogen 24 mg/dL (7-20) Creatinine 4.3 mg/dL (0.6-1.0) Estimated GFR (Cockcroft-Gault) 12.4 BUN/Creatinine Ratio 6 (6-20) Glucose Level 122 mg/dL (70-99) Calcium Level 9.0 mg/dL (8.5-10.1) Magnesium Level 1.7 mg/dL (1.8-2.4) Total Bilirubin 0.3 mg/dL (0.2-1.0) Aspartate Amino Transf (AST/SGOT) 22 U/L (15-37) Alanine Aminotransferase (ALT/SGPT) 18 U/L (14-59) Alkaline Phosphatase 141 U/L (46-116) Troponin I Quantitative < 0.017 ng/mL (0.000-0.055) Total Protein 7.4 g/dL (6.4-8.2) Albumin 3.1 g/dL (3.4-5.0) Albumin/Globulin Ratio 0.7 (1.0-1.7) Test 10/05/19 07:29 10/05/19 10:59 Glucose (Fingerstick) 72 mg/dL (70-99) 101 mg/dL (70-99) Laboratory Tests Test 10/04/19 18:59 10/04/19 21:15 10/05/19 07:29 10/05/19 10:59 Glucose (Fingerstick) 125 mg/dL (70-99) 149 mg/dL (70-99) 72 mg/dL (70-99) 101 mg/dL (70-99) Assessment/Plan Assessment/Plan IMP ESRD ANEMIA DM II HTN ENCEPHALOPATHY-PROB FROM HD RELATED HYPOTENSION-RESOLVED PLAN HD MWF [facility] WHEN NEEDED HEMODYNAMICALLY STABLE COULD BE D/C ED D/W ATTENDING SHE CAN GO TO HD TOMORROW MEJIA WEIR MD Oct 05, 2019 12:09
--- NOTE | 2019-10-05 13:14 | NUR ---
AMELIA consulted for dc planning. Pt she lives at home with daughters. Pt is dependent for ADL's and goes to [facility], phone: [phone], fax: [phone]. Discussed with HD clinic regarding discharge today and faxed clinicals. AMELIA arranged transport via [facility] at 1500. Discussed with RN.
[2019-10-05 15:00] VITALS: BP 152/58
[2019-10-05 15:46] VITALS: BP 138/40
--- NOTE | 2019-10-05 16:21 | NUR ---
Discharge Note: MARKUS HE J6 [facility] Discharge instructions and discharge home medications reviewed with patient and a copy given. All questions have been answered and understanding verbalized. The following instructions and handouts were given: Take amlodipine once daily (new medicine) Hemodialysis tomorrow as scheduled, resume previous schedule Follow up with PCP in a week Watch out for worsening of symptoms. Handouts on migraine headache and hemodialysis. Discontinued lines and drains: peripheral IV intact, patient tolerated the removal, no cmplications noted. Patient discharged to home with self-care via [facility] at 1600. DaughterAmando notified via phone by this RN.
[2019-10-05] MEDS ORDERED: ATORVASTATIN CALCIUM 20 MG TABLET PO SCH (21:00)
[2019-10-06] MEDS ORDERED: amLODIPine BESYLATE 5 MG TABLET PO SCH (09:00)
== END 2019-10-05 17:05 | disposition home or self-care (01) ==
LOC: ER 09:22 → 6 SOUTH 13:20
PROVIDERS: ADMIT Internal Medicine; ATTEND Internal Medicine
DX: R41.82 Altered mental status, unspecified (principal); I12.0 Hypertensive chronic kidney disease with stage 5 chronic kidney disease or end stage renal disease; N18.6 End stage renal disease; G43.909 Migraine, unspecified, not intractable, without status migrainosus; R56.9 Unspecified convulsions; E11.22 Type 2 diabetes mellitus with diabetic chronic kidney disease; E66.9 Obesity, unspecified; F41.9 Anxiety disorder, unspecified; F32.9 Major depressive disorder, single episode, unspecified; Z98.890 Other specified postprocedural states; Z99.2 Dependence on renal dialysis; Z87.891 Personal history of nicotine dependence
CPT/HCPCS: 36415; 70450; 71045; 80053; 82962; 83735; 84484; 85025; 85610; 85730; 93005; 94640; 94760; 96372; 96374; 99284; G0378; J1644; J1815; J2270; J7613; J8597; G0379

== ENCOUNTER 2020-11-23 21:33 | Inpatient (IN) | payer MEDICAID ==
[~2020-11-23] VITALS: Ht 165.1 cm; Wt 99.5 kg
[~2020-11-23 21:33] MED LIST changes: +AMLO-186 PO; +BUTA1TAB23 PO; -CALC600T4 PO; +CALC600T60 PO; -CETI10TA22 PO; +CETI10TA74 PO; -CINA30TA2 PO; +CINA30TA24 PO; -NALO25TA2 PO; +NALO25TA4 PO; -OMEP20CA10 PO; +OMEP20CA16 PO
[2020-11-23 22:21] LABS: BASO % 0 % (0-3); EOS % 1 % (0-3); HEMATOCRIT 32.7 % (36.0-47.0); LYMPH # 1.4 x10^3/uL (1.0-4.8); LYMPH % 31 % (24-48); MEAN CORPUSCULAR HEMOGLOBIN 32 pg (25-35); MEAN CORPUSCULAR HGB CONC 34 g/dL (31-37); MEAN CORPUSCULAR VOLUME 95 fL (79-100); MONO # 0.6 x10^3/uL (0.0-1.1); MONO % 13 % (0-9); NEUT # 2.4 x10^3/uL (1.8-7.7); NEUT % 55 % (31-73); PLATELET COUNT 139 x10^3/uL (140-400); RED BLOOD COUNT 3.44 x10^6/uL (3.50-5.40); RED CELL DISTRIBUTION WIDTH 13.9 % (11.5-14.5); WHITE BLOOD COUNT 4.4 x10^3/uL (4.0-11.0)
[2020-11-23 22:33] LABS: CALCIUM 8.2 mg/dL (8.5-10.1); CREATININE 8.5 mg/dL (0.6-1.0); GFR 5.6; POTASSIUM 4.3 mmol/L (3.5-5.1)
[2020-11-23 22:38] LABS: ALBUMIN 3.2 g/dL (3.4-5.0); ALBUMIN/GLOBULIN RATIO 0.9 (1.0-1.7); TOTAL BILIRUBIN 0.4 mg/dL (0.2-1.0); TOTAL PROTEIN 6.8 g/dL (6.4-8.2)
--- NOTE | 2020-11-23 22:41 | RAD ---
Exam: Chest one view INDICATION: Nausea vomiting, Covid positive TECHNIQUE: Frontal view of the chest Comparisons: 10/04/2019 FINDINGS: Right subclavian stent is again noted. The cardiomediastinal silhouette and pulmonary vessels are within normal limits. Subtle airspace disease at the right mid and lower lung. No pleural effusion. IMPRESSION: Subtle airspace disease at the right mid and lower lung. Electronically signed by: Aurelio Goncalves MD (11/23/2020 10:39 PM) [facility]
--- NOTE | 2020-11-23 22:49 | PHYS DOC ---
Past Medical History Past Medical History: COPD, CVA, Diabetes-Type II, Hypertension, Renal Disease, Renal Failure, Seizure, Other Past Surgical History: Other Additional Past Surgical Histo: Dialysis shunt R) upper arm being used, shunt in left arm-not used anymore. Smoking Status: Former Smoker Alcohol Use: None Drug Use: None General Adult EDM: Chief Complaint: MULTIPLE COMPLAINTS HPI: HPI: Patient is a 70 year old female past medical history of end-stage renal disease dialysis Wednesday presents with a chief complaint of abdominal pain associated with diarrhea. Patient states abdominal pain started just prior to arrival. Patient's pain is located in her lower abdomen. Patient states she has had associated diarrhea she denies any nausea or vomiting. Patient was also diagnosed with COVID-19 on Wednesday. Patient Covid symptoms include a cough. Patient denies any chest pain or shortness of breath. Patient rates her abdominal pain a 9 out of 10. Patient also states that she missed her dialysis today. Review of Systems: Review of Systems: Constitutional: Denies fever or chills. [] Eyes: Denies change in visual acuity. [] HENT: Denies nasal congestion or sore throat. [] Respiratory: Denies cough or shortness of breath. [] Cardiovascular: Denies chest pain or edema. [] GI: Denies abdominal pain, nausea, vomiting, bloody stools or diarrhea. [] : Denies dysuria. [] Musculoskeletal: Denies back pain or joint pain. [] Integument: Denies rash. [] Neurologic: Denies headache, focal weakness or sensory changes. [] Endocrine: Denies polyuria or polydipsia. [] Lymphatic: Denies swollen glands. [] Psychiatric: Denies depression or anxiety. [] Heart Score: Risk Factors: Risk Factors: DM, Current or recent (<one month) smoker, HTN, HLP, family history of CAD, obesity. Risk Scores: Score 0 - 3: 2.5% MACE over next 6 weeks - Discharge Home Score 4 - 6: 20.3% MACE over next 6 weeks - Admit for Clinical Observation Score 7 - 10: 72.7% MACE over next 6 weeks - Early Invasive Strategies Allergies: Allergies: Allergies Coded Allergies Type Severity Reaction Last Updated Verified diphenhydramine Allergy Intermediate 09/21/19 Yes Physical Exam: PE: Constitutional: Well developed, well nourished, no acute distress, non-toxic appearance. [] HENT: Normocephalic, atraumatic, bilateral external ears normal, oropharynx moist, no oral exudates, nose normal. [] Eyes: PERRLA, EOMI, conjunctiva normal, no discharge. [] Neck: Normal range of motion, no tenderness, supple, no stridor. [] Cardiovascular:Heart rate regular rhythm, no murmur [] Lungs & Thorax: Bilateral breath sounds clear to auscultation [] Abdomen: Bowel sounds normal, soft, no tenderness, no masses, no pulsatile masses. [] Skin: Warm, dry, no erythema, no rash. [] Back: No tenderness, no CVA tenderness. [] Extremities: No tenderness, no cyanosis, no clubbing, ROM intact, no edema. [] Neurologic: Alert and oriented X 3, normal motor function, normal sensory function, no focal deficits noted. [] Psychologic: Affect normal, judgement normal, mood normal. [] Current Patient Data: Labs: Laboratory Tests Test 11/23/20 22:12 White Blood Count 4.4 x10^3/uL (4.0-11.0) Red Blood Count 3.44 x10^6/uL (3.50-5.40) L Hemoglobin 11.0 g/dL (12.0-15.5) L Hematocrit 32.7 % (36.0-47.0) L Mean Corpuscular Volume 95 fL (79-100) Mean Corpuscular Hemoglobin 32 pg (25-35) Mean Corpuscular Hemoglobin Concent 34 g/dL (31-37) Red Cell Distribution Width 13.9 % (11.5-14.5) Platelet Count 139 x10^3/uL (140-400) L Neutrophils (%) (Auto) 55 % (31-73) Lymphocytes (%) (Auto) 31 % (24-48) Monocytes (%) (Auto) 13 % (0-9) H Eosinophils (%) (Auto) 1 % (0-3) Basophils (%) (Auto) 0 % (0-3) Neutrophils # (Auto) 2.4 x10^3/uL (1.8-7.7) Lymphocytes # (Auto) 1.4 x10^3/uL (1.0-4.8) Monocytes # (Auto) 0.6 x10^3/uL (0.0-1.1) Eosinophils # (Auto) 0.0 x10^3/uL (0.0-0.7) Basophils # (Auto) 0.0 x10^3/uL (0.0-0.2) Sodium Level 146 mmol/L (136-145) H Potassium Level 4.3 mmol/L (3.5-5.1) Chloride Level 104 mmol/L (98-107) Carbon Dioxide Level 27 mmol/L (21-32) Anion Gap 15 (6-14) H Blood Urea Nitrogen 62 mg/dL (7-20) H Creatinine 8.5 mg/dL (0.6-1.0) H Estimated GFR (Cockcroft-Gault) 5.6 BUN/Creatinine Ratio 7 (6-20) Glucose Level 114 mg/dL (70-99) H Calcium Level 8.2 mg/dL (8.5-10.1) L Total Bilirubin 0.4 mg/dL (0.2-1.0) Aspartate Amino Transferase (AST) 26 U/L (15-37) Alanine Aminotransferase (ALT) 21 U/L (14-59) Alkaline Phosphatase 86 U/L (46-116) Total Protein 6.8 g/dL (6.4-8.2) Albumin 3.2 g/dL (3.4-5.0) L Albumin/Globulin Ratio 0.9 (1.0-1.7) L Lipase 206 U/L (73-393) Laboratory Tests 11/23/20 22:12 Laboratory Tests 11/23/20 22:12 Vital Signs: Vital Signs Date Time Temp Pulse Resp B/P (MAP) Pulse Ox O2 Delivery O2 Flow Rate FiO2 11/23/20 21:43 98.0 76 12 185/79 (114) 95 Room Air 98.0 EKG: EKG: [] Radiology/Procedures: Radiology/Procedures: [] Impression: FINDINGS: Right subclavian stent is again noted. The cardiomediastinal silhouette and pulmonary vessels are within normal limits. Subtle airspace disease at the right mid and lower lung. No pleural effusion. IMPRESSION: Subtle airspace disease at the right mid and lower lung. Electronically signed by: Aurelio Goncalves MD (11/23/2020 10:39 PM) [facility] IMPRESSION: * Patchy opacity at the right lung base which could be from atelectasis or infiltrate. * There is some mild indistinctness the fat adjacent to the urinary bladder. Would correlate with symptoms to ensure there is not a pathologic cause such as cystitis. * Diffuse edema of soft tissues. * Repeat demonstration of a suspected complex cystic lesion of the left adnexa with calcification seen in the region as well. Nonemergent outpatient ultrasound could further assess for complexity. Electronically signed by: Ja Castaneda MD (11/24/2020 12:19 AM) [id number] Course & Med Decision Making: Course & Med Decision Making Pertinent Labs and Imaging studies reviewed. (See chart for details) [] Patient was evaluated for chief complaint. Work-up consisted of laboratory analysis and radiologic imaging. Results reviewed and discussed with patient. Patient known Covid positive. CT abdomen without acute intraabdominal abnormalities. Dragon Disclaimer: Dragon Disclaimer: This electronic medical record was generated, in whole or in part, using a voice recognition dictation system. Departure Departure Impression: Primary Impression: Abdominal pain Additional Impressions: Diarrhea COVID-19 Disposition: 01 [place] [facility] SELF CARE/HOMELESS Admitting Physician: Luca Wall Condition: IMPROVED Referrals: LUCA WALL MD (PCP) DILAN RAZA DO Nov 23, 2020 22:49
--- NOTE | 2020-11-24 00:21 | RAD ---
INDICATION: Reason: ABD PAIN DIARRHEA COVID+ / Spl. Instructions: / History: . COMPARISON: June 2019 TECHNIQUE: Axial CT images obtained through the abdomen and pelvis without contrast. One or more of the following individualized dose reduction techniques were utilized for this examinat ion: 1. Automated exposure control; 2. Adjustment of the mA and/or kV according to patient size; 3 . Use of iterative reconstruction technique. FINDINGS: Patchy opacity at right lung base. Calcification of the mitral valve. Severe calcific atherosclerosis . Edema within soft tissues. No intrahepatic bile duct dilation. No peripancreatic fluid collection. Spleen is unremarkable. Atrophic kidneys without hydronephrosis. Urinary bladder largely decompressed. Suspected small cystic lesion of the right kidney which is a common finding. Measures approximately 1 0 mm. Fullness of the left adnexa. There is also calcification. Colonic diverticulosis. No inflammatory changes adjacent to the suspected appendix. Indistinctness the fat adjacent to the urinary bladder. Degenerative changes the spine with multileve l central canal and neural foraminal stenosis. Patchy osseous demineralization. Grade 1 anterolisthesis of L3 on 4. IMPRESSION: * Patchy opacity at the right lung base which could be from atelectasis or infiltrate. * There is some mild indistinctness the fat adjacent to the urinary bladder. Would correlate with sy mptoms to ensure there is not a pathologic cause such as cystitis. * Diffuse edema of soft tissues. * Repeat demonstration of a suspected complex cystic lesion of the left adnexa with calcification se en in the region as well. Nonemergent outpatient ultrasound could further assess for complexity. Electronically signed by: Ja Castaneda MD (11/24/2020 12:19 AM) [id number]
[2020-11-24] MEDS ORDERED: MORPHINE SULFATE 2 MG/ML VIAL. IV PRN (02:45)
[2020-11-24] MEDS ORDERED: ONDANSETRON PF 4 MG/2 ML VIAL. IV PRN (02:45)
[2020-11-24] MEDS ORDERED: DEXTROSE 50% 25 GM / 50ML DISP.SYRIN. IV PRN (11:45)
[2020-11-24] MEDS ORDERED: BUTALB/APAP/CAFEIN 50/325/40MG TABLET. PO PRN (11:45)
[2020-11-24] MEDS ORDERED: ALPRAZolam 0.25 MG TABLET PO PRN (11:45)
--- NOTE | 2020-11-24 11:47 | PDOC ---
Provider Note Date of Service: DATE: 11/24/20 TIME: 11:46 Provider Note Pt seen.H&P dictated.#[id number]. Justifications for Admission Other Justification CARMITA WALL MD Nov 24, 2020 11:47
[2020-11-24] MEDS: CALCIUM ACETATE 667 MG CAPSULE PO SCH ×2 (12:27→17:00)
[2020-11-24] MEDS: FOLIC/VIT B COMP W-C (RENAL) TABLET. PO SCH (12:27)
[2020-11-24] MEDS: SENNOSIDES 8.6 MG TABLET PO SCH ×2 (12:28→20:58)
[2020-11-24] MEDS: ASPIRIN ENTERIC COATED 81 MG TABLET.DR. PO SCH (12:29)
[2020-11-24] MEDS: METOCLOPRAMIDE 10 MG TABLET. PO SCH ×3 (12:29→20:59)
[2020-11-24] MEDS: CINACALCET HCL 30 MG TABLET PO SCH (12:29)
[2020-11-24] MEDS: CYCLOBENZAPRINE 10 MG TABLET. PO SCH ×2 (12:29→21:00)
[2020-11-24] MEDS: levETIRAcetam 500 MG TABLET PO SCH ×2 (12:30→21:00)
[2020-11-24] MEDS: cloNIDine HCL 0.1 MG TABLET PO SCH ×2 (12:30→20:59)
[2020-11-24] MEDS: ALLOPURINOL 100 MG TABLET. PO SCH (12:31)
[2020-11-24] MEDS: PANTOPRAZOLE 40 MG TABLET.DR. PO SCH (12:32)
[2020-11-24] MEDS: CITALOPRAM 10 MG TABLET. PO SCH (12:32)
[2020-11-24] MEDS: CLOPIDOGREL BISULFATE 75 MG TABLET PO SCH (12:32)
[2020-11-24] MEDS: INSULIN LISPRO 300 UNITS/3 ML VIAL. SQ SCH ×3 (12:39→17:00)
[2020-11-24 15:00] VITALS: BP 186/79
[2020-11-24] MEDS: HYDROcodone/APAP 5/325MG 1 TAB TABLET PO PRN (15:26)
[2020-11-24] MEDS: HEPARIN for SUB-Q USE 5,000 UNIT/ML VIAL. SQ SCH ×2 (15:31→22:24)
[2020-11-24] MEDS: ALBUTEROL SULFATE 2.5 MG/3 ML NEBU. NEB SCH ×2 (15:53→19:28)
--- NOTE | 2020-11-24 16:01 | PDOC2 ---
CONSULT Date of Consult Date of Consult DATE: 11/24/20 TIME: 15:56 Reason for Consult Reason for Consult: ESRD on hemodialysis Referring Physician Referring Physician: Dr. Lobo Identification/Chief Complaint Chief Complaint Diarrhea Source Source: Chart review, Patient History of Present Illness Reason for Visit: Georgia is a 70-year-old morbidly obese -[place] female with known history of ESRD. She dialyzes on a Wednesday basis under the care of Dr. Egan. She missed her dialysis on Wednesday due to the snowstorm. She is also had ongoing diarrhea. She presented to the ER for further evaluation as well as for ongoing abdominal pain she denies nausea vomiting. She was diagnosed with COVID-19 positivity on Wednesday and is scheduled to go to [facility] isolation unit for dialysis as an outpatient. Past Medical History Cardiovascular: CHF, HTN, Other Pulmonary: Asthma, Bronchitis, COPD, Other CENTRAL NERVOUS SYSTEM: CVA, Seizure GI: Constipation, GERD Heme/Onc: Anemia NOS Psych: Anxiety, Depression Musculoskeletal: Other Rheumatologic: Gout, Rheumatoid arthritis Renal/: Chronic renal failure Endocrine: Diabetes, Hyperparathyroidism Past Surgical History Past Surgical History: Cholecystectomy, , Hysterectomy, Other Family History Family History: Coronary Artery Disease, Hypertension, Kidney Disease Social History ALCOHOL: none Drugs: None Lives: with Family Current Problem List Problem List Problems Medical Problems: (1) Abdominal pain Status: Acute (2) COVID-19 Status: Acute (3) Diarrhea Status: Acute Current Medications Current Medications Current Medications Ondansetron HCl (Zofran) 4 mg PRN Q8HRS PRN IV NAUSEA/VOMITING 1ST CHOICE; Start 11/24/20 at 02:45; Stop 11/25/20 at 02:44 Morphine Sulfate (Morphine Sulfate) 2 mg PRN Q2HR PRN IV SEVERE PAIN 7-10; Start 11/24/20 at 02:45; Stop 11/25/20 at 02:44 Allopurinol (Zyloprim) 100 mg DAILY PO Last administered on 11/24/20at 12:31; Start 11/24/20 at 12:00 Alprazolam (Xanax) 0.25 mg PRN BID PRN PO ANXIETY / AGITATION; Start 11/24/20 at 11:45 Amlodipine Besylate (Norvasc) 5 mg DAILY PO Last administered on 11/24/20at 12:31; Start 11/24/20 at 12:00 Aspirin (Ecotrin) 81 mg DAILY PO Last administered on 11/24/20at 12:29; Start 11/24/20 at 12:00 Acetaminophen/ Butalbital/ Caffeine (Fioricet) 1 tab PRN Q6HRS PRN PO MIGRAINE HEADACHE; Start 11/24/20 at 11:45 Cinacalcet (Sensipar) 30 mg DAILY PO Last administered on 11/24/20at 12:29; Start 11/24/20 at 12:00 Citalopram Hydrobromide (CeleXA) 10 mg DAILY PO Last administered on 11/24/20at 12:32; Start 11/24/20 at 12:00 Clonidine HCl (Catapres) 0.1 mg TID PO Last administered on 11/24/20 12:30; Start 11/24/20 at 12:00 Clopidogrel Bisulfate (Plavix) 75 mg DAILY PO Last administered on 11/24/20 12:32; Start 11/24/20 at 12:00 Cyclobenzaprine HCl (Flexeril) 10 mg BID PO Last administered on 11/24/20at 12:29; Start 11/24/20 at 12:00 Gabapentin (Neurontin) 300 mg HS PO ; Start 11/24/20 at 21:00 Acetaminophen/ Hydrocodone Bitart (Lortab 5/325) 1 tab PRN Q6HRS PRN PO PAIN Last administered on 11/24/20at 15:26; Start 11/24/20 at 11:45 Levetiracetam (Keppra) 500 mg BID PO Last administered on 11/24/20at 12:30; Start 11/24/20 at 12:00 Metoclopramide HCl (Reglan) 5 mg QIDACHS PO Last administered on 11/24/20at 12:29; Start 11/24/20 at 12:00 Metoprolol Succinate (Toprol Xl) 25 mg QHS PO ; Start 11/24/20 at 21:00 Pantoprazole Sodium (Protonix) 40 mg DAILYAC PO Last administered on 11/24/20at 12:32; Start 11/24/20 at 12:00 Atorvastatin Calcium (Lipitor) 20 mg QHS PO ; Start 11/24/20 at 21:00 Insulin Human Lispro (HumaLOG) 5 units BIDWMEALS SQ ; Start 11/24/20 at 17:00 Insulin Glargine (Lantus Syringe) 8 unit QHS SQ ; Start 11/24/20 at 21:00 Albuterol Sulfate (Ventolin Neb Soln) 2.5 mg RTQID NEB Last administered on 11/24/20at 15:53; Start 11/24/20 at 12:00 Non-Formulary Medication (Naloxegol Oxalate (Movantik)) 25 mg DAILY PO ; Start 11/25/20 at 09:00; Status UNV Sennosides (Senna) 8.6 mg BID PO Last administered on 11/24/20at 12:28; Start 11/24/20 at 12:00 Vitamin B Complex/ Vitamin C (Makayla-Britton) 1 tab DAILY PO Last administered on 11/24/20at 12:27; Start 11/24/20 at 12:00 Calcium Acetate (Phoslo) 2,001 mg TIDWMEALS PO Last administered on 11/24/20at 12:27; Start 11/24/20 at 12:00 Insulin Human Lispro (HumaLOG) 0-5 UNITS TIDWMEALS SQ ; Start 11/24/20 at 12:00 Dextrose (Dextrose 50%-Water Syringe) 12.5 gm PRN Q15MIN PRN IV SEE COMMENTS; Start 11/24/20 at 11:45 Heparin Sodium (Porcine) (Heparin Sodium) 5,000 unit Q8HRS SQ Last administered on 11/24/20at 15:31; Start 11/24/20 at 14:00 Active Scripts Active Amlodipine Besylate 5 Mg Tablet 5 Mg PO DAILY 30 Days Nzesyw-Rqwimfxd-Awlf 50-325-40 (Butalb/Acetaminophen/Caffeine) 1 Each Tablet 1 Tab PO PRN Q6HRS PRN 10 Days Aspir-Low (Aspirin) 81 Mg Tablet. 1 Tab PO DAILY Pantoprazole Sodium (Pantoprazole Sodium) 40 Mg Tablet.dr 40 Mg PO DAILYAC 30 Days Metoprolol Succinate ( Xl ) (Metoprolol Succinate) 25 Mg Tab.er.24h 25 Mg PO QHS 30 Days Reported Levemir Flextouch (Insulin Detemir) 100 Unit/1 Ml Insuln.pen 8 Unit SQ HS Novolog Flexpen (Insulin Aspart) 100 Unit/1 Ml Insuln.pen 5 Unit SQ BIDWMEALS [phoslo] 2,001 Mg PO TID Movantik (Naloxegol Oxalate) 25 Mg Tablet 25 Mg PO DAILY Xopenex Hfa (Levalbuterol Tartrate) 15 Gm Hfa.aer.ad 2 Puff IH QID Keppra (Levetiracetam) 500 Mg Tablet 1 Tab PO BID Vol-Care Rx Tablet (Vit B Cmplx 3/Fa/Vit C/Biotin) 1 Each Tablet 1 Each PO DAILY Clopidogrel (Clopidogrel Bisulfate) 75 Mg Tablet 1 Tab PO DAILY Alprazolam 0.25 Mg Tablet 1 Tab PO PRN BID PRN Celexa (Citalopram Hydrobromide) 10 Mg Tablet 1 Tab PO DAILY Allopurinol 100 Mg Tablet 1 Tab PO DAILY Sensipar (Cinacalcet Hcl) 30 Mg Tablet 1 Tab PO DAILY Simvastatin 40 Mg Tablet 1 Tab PO QHS Gabapentin (Gabapentin) 300 Mg Capsule 1 Cap PO HS Senna (Sennosides) 8.6 Mg Capsule 8.6 Mg PO BID Cyclobenzaprine Hcl 10 Mg Tablet 1 Tab PO BID Reglan (Metoclopramide Hcl) 10 Mg Tablet 5 Mg PO QIDACHS Clonidine Hcl 0.1 Mg Tablet 1 Tab PO TID Hydrocodone-Apap 5-325 (Hydrocodone Bit/Acetaminophen) 1 Each Tablet 1 Tab PO PRN Q6HRS PRN Allergies Allergies: Coded Allergies: diphenhydramine (Verified Allergy, Intermediate, 09/21/19) Alla ROS Review of System Patient is currently in COVID-19 isolation and a full review of systems is unable to be obtained however it has been reviewed as documented in the ER physicians note Physical Exam Physical Exam Patient remains in COVID-19 isolation at this time and hence a full physical exam was unable to be performed. I have reviewed physical exam was performed by the ER physician and corroborated with her nurse Vital Signs Vital Signs Date Time Temp Pulse Resp B/P (MAP) Pulse Ox O2 Delivery O2 Flow Rate FiO2 11/24/20 15:30 80 18 202/82 (122) 96 Room Air 11/23/20 21:43 98.0 98.0 Assessment & Plan ESRD: Current FLuid and E-lyte status does not necessitate emergent need for Dialysis. Will re-evaluate for Dialysis in am and continue on MWF schedule. Anasarca: May need challenge of estimated dry weight with dialysis tomorrow Abnormal chest x-ray: Unclear if this is due to Covid versus due to fluid. Ultrafiltration as ordered with dialysis for tomorrow Anemia: Epogen Transfuse with next HD as needed. HTN: Current BP meds reviewed. Await reinitiation of home blood pressure regimen and assess response to the same. Fluid optimization/ultrafiltration with dialysis tomorrow may help with the same also. Bone & Mineral: Follow phosphorus levels and alter binder regimen as needed Discussed Plan of Care with Dr. Lobo over the phone Labs Labs Laboratory Tests Test 11/23/20 22:12 11/24/20 10:03 White Blood Count 4.4 x10^3/uL (4.0-11.0) Red Blood Count 3.44 x10^6/uL (3.50-5.40) Hemoglobin 11.0 g/dL (12.0-15.5) Hematocrit 32.7 % (36.0-47.0) Mean Corpuscular Volume 95 fL (79-100) Mean Corpuscular Hemoglobin 32 pg (25-35) Mean Corpuscular Hemoglobin Concent 34 g/dL (31-37) Red Cell Distribution Width 13.9 % (11.5-14.5) Platelet Count 139 x10^3/uL (140-400) Neutrophils (%) (Auto) 55 % (31-73) Lymphocytes (%) (Auto) 31 % (24-48) Monocytes (%) (Auto) 13 % (0-9) Eosinophils (%) (Auto) 1 % (0-3) Basophils (%) (Auto) 0 % (0-3) Neutrophils # (Auto) 2.4 x10^3/uL (1.8-7.7) Lymphocytes # (Auto) 1.4 x10^3/uL (1.0-4.8) Monocytes # (Auto) 0.6 x10^3/uL (0.0-1.1) Eosinophils # (Auto) 0.0 x10^3/uL (0.0-0.7) Basophils # (Auto) 0.0 x10^3/uL (0.0-0.2) Sodium Level 146 mmol/L (136-145) Potassium Level 4.3 mmol/L (3.5-5.1) Chloride Level 104 mmol/L (98-107) Carbon Dioxide Level 27 mmol/L (21-32) Anion Gap 15 (6-14) Blood Urea Nitrogen 62 mg/dL (7-20) Creatinine 8.5 mg/dL (0.6-1.0) Estimated GFR (Cockcroft-Gault) 5.6 BUN/Creatinine Ratio 7 (6-20) Glucose Level 114 mg/dL (70-99) Calcium Level 8.2 mg/dL (8.5-10.1) Total Bilirubin 0.4 mg/dL (0.2-1.0) Aspartate Amino Transf (AST/SGOT) 26 U/L (15-37) Alanine Aminotransferase (ALT/SGPT) 21 U/L (14-59) Alkaline Phosphatase 86 U/L (46-116) Total Protein 6.8 g/dL (6.4-8.2) Albumin 3.2 g/dL (3.4-5.0) Albumin/Globulin Ratio 0.9 (1.0-1.7) Lipase 206 U/L (73-393) Glucose (Fingerstick) 113 mg/dL (70-99) Laboratory Tests Test 11/23/20 22:12 11/24/20 10:03 White Blood Count 4.4 x10^3/uL (4.0-11.0) Red Blood Count 3.44 x10^6/uL (3.50-5.40) Hemoglobin 11.0 g/dL (12.0-15.5) Hematocrit 32.7 % (36.0-47.0) Mean Corpuscular Volume 95 fL (79-100) Mean Corpuscular Hemoglobin 32 pg (25-35) Mean Corpuscular Hemoglobin Concent 34 g/dL (31-37) Red Cell Distribution Width 13.9 % (11.5-14.5) Platelet Count 139 x10^3/uL (140-400) Neutrophils (%) (Auto) 55 % (31-73) Lymphocytes (%) (Auto) 31 % (24-48) Monocytes (%) (Auto) 13 % (0-9) Eosinophils (%) (Auto) 1 % (0-3) Basophils (%) (Auto) 0 % (0-3) Neutrophils # (Auto) 2.4 x10^3/uL (1.8-7.7) Lymphocytes # (Auto) 1.4 x10^3/uL (1.0-4.8) Monocytes # (Auto) 0.6 x10^3/uL (0.0-1.1) Eosinophils # (Auto) 0.0 x10^3/uL (0.0-0.7) Basophils # (Auto) 0.0 x10^3/uL (0.0-0.2) Sodium Level 146 mmol/L (136-145) Potassium Level 4.3 mmol/L (3.5-5.1) Chloride Level 104 mmol/L (98-107) Carbon Dioxide Level 27 mmol/L (21-32) Anion Gap 15 (6-14) Blood Urea Nitrogen 62 mg/dL (7-20) Creatinine 8.5 mg/dL (0.6-1.0) Estimated GFR (Cockcroft-Gault) 5.6 BUN/Creatinine Ratio 7 (6-20) Glucose Level 114 mg/dL (70-99) Calcium Level 8.2 mg/dL (8.5-10.1) Total Bilirubin 0.4 mg/dL (0.2-1.0) Aspartate Amino Transf (AST/SGOT) 26 U/L (15-37) Alanine Aminotransferase (ALT/SGPT) 21 U/L (14-59) Alkaline Phosphatase 86 U/L (46-116) Total Protein 6.8 g/dL (6.4-8.2) Albumin 3.2 g/dL (3.4-5.0) Albumin/Globulin Ratio 0.9 (1.0-1.7) Lipase 206 U/L (73-393) Glucose (Fingerstick) 113 mg/dL (70-99) Review All relevant outside records, renal labs, imaging studies, telemetry/EKG's were reviewed. Images Images CT scan of abdomen and pelvis IMPRESSION: * Patchy opacity at the right lung base which could be from atelectasis or infiltrate. * There is some mild indistinctness the fat adjacent to the urinary bladder. Would correlate with symptoms to ensure there is not a pathologic cause such as cystitis. * Diffuse edema of soft tissues. * Repeat demonstration of a suspected complex cystic lesion of the left adnexa with calcification seen in the region as well. Nonemergent outpatient ultrasound could further assess for complexity. ALCIRA HARRIS MD Nov 24, 2020 16:01
[2020-11-24] MEDS: hydrALAZINE 20 MG/ML VIAL. IVP PRN (18:42)
[2020-11-24 19:00] VITALS: BP 153/66
[2020-11-24] MEDS: METOPROLOL SUCC 24HR ER 25 MG TAB.ER.24H. PO SCH (20:59)
[2020-11-24] MEDS: GABAPENTIN 300 MG CAPSULE. PO SCH (20:59)
[2020-11-24] MEDS: INSULIN GLARGINE SYRINGE. SQ SCH (21:00)
[2020-11-24] MEDS: ATORVASTATIN CALCIUM 20 MG TABLET PO SCH (21:00)
--- NOTE | 2020-11-24 22:31 | HP ---
ADMIT DATE: 11/24/2020 MEDICAL HISTORY AND PHYSICAL REASON FOR ADMISSION TO THE HOSPITAL: COVID infection. The patient is not able to dialysis because the dialysis place could not take COVID patients. HISTORY OF PRESENT ILLNESS: The patient is a 70-year-old female. The patient has history of renal failure, on chronic hemodialysis. She also had history of previous stroke. She is in motorized wheelchair. She goes to dialysis on Wednesday, Wednesday and Wednesday and her daughter was sick couple of days ago with COVID and she had a nose swab taken couple of days ago and she was positive and she called the dialysis center and the dialysis center could not take her because of COVID positive. The patient could not get dialysis and she was getting short of breath, was brought to the Emergency Room. Chest x-ray was normal. Oxygen is good and the patient was admitted, so she could be dialyzed and referred to a place where she will get dialysis. PAST MEDICAL HISTORY: She has history of diabetes, hypertension, stroke, seizures, sleep apnea. She was last in the hospital last year. She has a dialysis AV shunt. ALLERGIES: BENADRYL. MEDICATIONS AT HOME: The patient is on allopurinol 100 mg daily, Xanax 0.25 twice a day, amlodipine 5 mg daily, aspirin 81 mg daily, butalbital for headaches, Sensipar 30 mg daily, citalopram 10 mg daily, clonidine 0.1 three times a day, Plavix 75 mg daily, cyclobenzaprine 10 mg twice a day, gabapentin 300 mg at bedtime, hydrocodone twice a day for pain, insulin 5 units twice a day, Levemir 18 units at bedtime, Xopenex inhaler 2 puffs twice a day, Keppra 500 mg 1 tablet twice a day, Reglan 10 mg, she takes 5 mg 4 times daily, metoprolol 25 mg daily, Movantik 25 mg daily, Protonix 40 mg daily, senna 1 daily, simvastatin 40 mg daily, Nephro-Britton 1 daily, PhosLo 2000 mg 3 times a day. PERSONAL HISTORY: Ex-smoker, has not smoked for a long time. Denies alcohol or drug abuse. SOCIAL HISTORY: Lives at home with her daughter. She is in motorized wheelchair because of the stroke. REVIEW OF SYSTEMS: Denies any fevers, only saying that she can go to dialysis. She is feeling a little bit of fluid overload. Rest of the 14 systems was reviewed and negative. PHYSICAL EXAMINATION: GENERAL: The patient is in bed, not in any distress. VITAL SIGNS: Temperature 98, pulse 76, respirations 12, blood pressure 185/79, 95% on room air. HEENT: Head is atraumatic. Pupils equal. Oral cavity: No congestion. NECK: Supple. Thyroid not enlarged. JVD not elevated. CHEST: Symmetrical. CARDIOVASCULAR: S1, S2. LUNGS: Clear to auscultation. ABDOMEN: Obese. No mass palpable. EXTERNAL GENITALIA: No Phillips. RECTAL: Deferred. EXTREMITIES: No calf tenderness. NEUROLOGIC: The patient is awake, answering questions. The patient has a left hemiparesis from previous stroke, moving right upper and lower extremities. LABORATORY DATA: Shows a white count of 4, hemoglobin 11, platelets of 139. Electrolytes are sodium 146, potassium 4.3, chloride 104, bicarbonate 27, anion gap 15, BUN 62, creatinine 8.5, glucose 114. LFTs normal and the patient had a CT scan of the abdomen and pelvis was unremarkable except some cyst in the ovary in the adnexal area. Chest x-ray shows maybe atelectasis. FINAL IMPRESSION: 1. COVID infection. 2. Unable to do dialysis because this patient is COVID and the dialysis center not accepting COVID patient, missed dialysis for Wednesday and Wednesday this week. 3. End-stage renal disease, on hemodialysis. 4. History of previous strokes. 5. History of seizures. 6. Diabetes. 7. Hypertension. 8. Morbid obesity. PLAN: At this time, the patient is admitted. Nephrology is consulted. The patient is going to schedule for dialysis either today or tomorrow and we had to set up for outpatient dialysis where she will get dialysis. The patient is being a COVID positive patient, DVT prevention with Lovenox while she is in the hospital. CARMITA WALL MD DR: EDIE/ayan JOB#: [id number] / [id number]
[2020-11-24 23:04] VITALS: BP 159/70
[2020-11-25 03:42] VITALS: BP 181/75
[2020-11-25] MEDS: hydrALAZINE 20 MG/ML VIAL. IVP PRN (03:48)
[2020-11-25 03:57] VITALS: BP 172/72
[2020-11-25] MEDS: METOCLOPRAMIDE 10 MG TABLET. PO SCH ×4 (06:12→21:37)
[2020-11-25] MEDS: PANTOPRAZOLE 40 MG TABLET.DR. PO SCH ×2 (06:12→09:21)
[2020-11-25] MEDS: HEPARIN for SUB-Q USE 5,000 UNIT/ML VIAL. SQ SCH ×3 (06:17→21:45)
[2020-11-25 07:00] VITALS: BP 156/67
[2020-11-25] MEDS: ALBUTEROL SULFATE 2.5 MG/3 ML NEBU. NEB SCH ×4 (07:03→20:00)
[2020-11-25] MEDS: INSULIN LISPRO 300 UNITS/3 ML VIAL. SQ SCH ×5 (08:00→17:00)
[2020-11-25] MEDS ORDERED: NON FORMULARY ITEM (Naloxegol Oxalate (Movantik) 25 MG) PO SCH (09:00)
--- NOTE | 2020-11-25 09:07 | PDOC ---
PROGRESS NOTES Date of Service: DATE: 11/25/20 TIME: 09:05 Subjective Subjective feels ok,waiting for dialysis Objective Objective Vital Signs Date Time Temp Pulse Resp B/P (MAP) Pulse Ox O2 Delivery O2 Flow Rate FiO2 11/25/20 07:00 97.2 66 20 156/67 (96) 99 Room Air 97.2 Intake and Output 11/25/20 07:00 Intake Total 200 ml Output Total 500 ml Balance -300 ml Intake Oral 200 ml Output Urine Total 500 ml Physical Exam Abdomen: Soft Heart: Regular rate, Normal S1 General: Alert MUSCULOSKELETAL: No deformity, No swelling Neuro: Normal speech Psych/Mental Status: Mental status NL Skin: No breakdown Diagnosis Problem List Problems Medical Problems: (1) Abdominal pain Status: Acute (2) COVID-19 Status: Acute (3) Diarrhea Status: Acute Assessment Assessment Problems Medical Problems: (1) Abdominal pain Status: Acute (2) COVID-19 Status: Acute (3) Diarrhea Status: Acute FINAL IMPRESSION: 1. COVID infection. 2. Unable to do dialysis because this patient is COVID and the dialysis center not accepting COVID patient, missed dialysis for Wednesday and Wednesday this week. 3. End-stage renal disease, on hemodialysis. 4. History of previous strokes. 5. History of seizures. 6. Diabetes. 7. Hypertension. 8. Morbid obesity. PLAN: dialysis today. social service consult can go to [facility] . At this time, the patient is admitted. Nephrology is consulted. The patient is going to schedule for dialysis either today or tomorrow and we had to set up for outpatient dialysis where she will get dialysis. The patient is being a COVID positive patient, DVT prevention with Lovenox while she is in the hospital. Plan Plan of Care Problems Medical Problems: (1) Abdominal pain Status: Acute (2) COVID-19 Status: Acute (3) Diarrhea Status: Acute Comment Review of Relevant I have reviewed the following items gabbi (where applicable) has been applied. Labs Laboratory Tests Test 11/24/20 10:03 11/24/20 18:23 11/24/20 21:06 11/25/20 08:11 Glucose (Fingerstick) 113 mg/dL (70-99) 139 mg/dL (70-99) 129 mg/dL (70-99) 100 mg/dL (70-99) Medications Current Medications Acetaminophen/ Butalbital/ Caffeine (Fioricet) 1 tab PRN Q6HRS PRN PO MIGRAINE HEADACHE; Start 11/24/20 at 11:45 Acetaminophen/ Hydrocodone Bitart (Lortab 5/325) 1 tab PRN Q6HRS PRN PO PAIN Last administered on 11/24/20at 15:26; Start 11/24/20 at 11:45 Albuterol Sulfate (Ventolin Neb Soln) 2.5 mg RTQID NEB Last administered on 11/24/20at 15:53; Start 11/24/20 at 12:00 Allopurinol (Zyloprim) 100 mg DAILY PO Last administered on 11/24/20 12:31; Start 11/24/20 at 12:00 Alprazolam (Xanax) 0.25 mg PRN BID PRN PO ANXIETY / AGITATION; Start 11/24/20 at 11:45 Amlodipine Besylate (Norvasc) 5 mg DAILY PO Last administered on 11/24/20at 12:31; Start 11/24/20 at 12:00 Aspirin (Ecotrin) 81 mg DAILY PO Last administered on 11/24/20at 12:29; Start 11/24/20 at 12:00 Atorvastatin Calcium (Lipitor) 20 mg QHS PO Last administered on 11/24/20at 21:00; Start 11/24/20 at 21:00 Calcium Acetate (Phoslo) 2,001 mg TIDWMEALS PO Last administered on 11/24/20at 17:00; Start 11/24/20 at 12:00 Cinacalcet (Sensipar) 30 mg DAILY PO Last administered on 11/24/20at 12:29; Start 11/24/20 at 12:00 Citalopram Hydrobromide (CeleXA) 10 mg DAILY PO Last administered on 11/24/20 12:32; Start 11/24/20 at 12:00 Clonidine HCl (Catapres) 0.1 mg TID PO Last administered on 11/24/20at 20:59; Start 11/24/20 at 12:00 Clopidogrel Bisulfate (Plavix) 75 mg DAILY PO Last administered on 11/24/20at 12:32; Start 11/24/20 at 12:00 Cyclobenzaprine HCl (Flexeril) 10 mg BID PO Last administered on 11/24/20at 21:00; Start 11/24/20 at 12:00 Dextrose (Dextrose 50%-Water Syringe) 12.5 gm PRN Q15MIN PRN IV SEE COMMENTS; Start 11/24/20 at 11:45 Gabapentin (Neurontin) 300 mg HS PO Last administered on 11/24/20at 20:59; Start 11/24/20 at 21:00 Heparin Sodium (Porcine) (Heparin Sodium) 5,000 unit Q8HRS SQ Last administered on 11/25/20at 06:17; Start 11/24/20 at 14:00 Hydralazine HCl (Apresoline Inj) 10 mg PRN Q4HRS PRN IVP ELEVATED BP, SEE COMMENTS Last administered on 11/25/20at 03:48; Start 11/24/20 at 16:30 Insulin Glargine (Lantus Syringe) 8 unit QHS SQ ; Start 11/24/20 at 21:00 Insulin Human Lispro (HumaLOG) 0-5 UNITS TIDWMEALS SQ ; Start 11/24/20 at 12:00 Insulin Human Lispro (HumaLOG) 5 units BIDWMEALS SQ ; Start 11/24/20 at 17:00 Levetiracetam (Keppra) 500 mg BID PO Last administered on 11/24/20at 21:00; Start 11/24/20 at 12:00 Metoclopramide HCl (Reglan) 5 mg QIDACHS PO Last administered on 11/25/20at 06:12; Start 11/24/20 at 12:00 Metoprolol Succinate (Toprol Xl) 25 mg QHS PO Last administered on 11/24/20at 20:59; Start 11/24/20 at 21:00 Non-Formulary Medication (Naloxegol Oxalate (Movantik)) 25 mg DAILY PO ; Start 11/25/20 at 09:00; Status UNV Pantoprazole Sodium (Protonix) 40 mg DAILYAC PO Last administered on 11/25/20at 06:12; Start 11/24/20 at 12:00 Sennosides (Senna) 8.6 mg BID PO Last administered on 11/24/20at 20:58; Start 11/24/20 at 12:00 Vitamin B Complex/ Vitamin C (Makayla-Britton) 1 tab DAILY PO Last administered on 11/24/20at 12:27; Start 11/24/20 at 12:00 Vitals/I & O Vital Sign - Last 24 Hours 11/24/20 11/24/20 11/24/20 11/24/20 09:30 11:30 12:30 12:31 Pulse 82 78 82 82 Resp 16 20 B/P (MAP) 202/87 (125) 203/91 (128) 205/84 205/84 Pulse Ox 95 95 O2 Delivery Room Air Room Air 11/24/20 11/24/20 11/24/20 11/24/20 13:30 14:30 15:00 15:30 Temp 98.1 98.1 Pulse 78 88 71 80 Resp 18 18 20 18 B/P (MAP) 172/70 (104) 181/79 (113) 186/79 (114) 202/82 (122) Pulse Ox 95 95 99 96 O2 Delivery Room Air Room Air Room Air Room Air 11/24/20 11/24/20 11/24/20 11/24/20 15:54 16:00 16:26 18:42 Pulse 74 74 Resp 18 B/P (MAP) 190/81 (117) 177/72 Pulse Ox 95 100 100 O2 Delivery Room Air Room Air 11/24/20 11/24/20 11/24/20 11/24/20 19:00 20:00 20:59 20:59 Temp 98.1 98.1 Pulse 79 79 79 Resp 20 B/P (MAP) 153/66 (95) 153/66 153/66 Pulse Ox 94 O2 Delivery Room Air Room Air 11/24/20 11/25/20 11/25/20 11/25/20 23:04 03:42 03:48 03:57 Temp 96.8 97.0 96.8 97.0 Pulse 65 69 69 69 Resp 16 24 B/P (MAP) 159/70 (99) 181/75 (110) 181/75 172/72 (105) Pulse Ox 97 98 O2 Delivery Room Air Room Air 11/25/20 07:00 Temp 97.2 97.2 Pulse 66 Resp 20 B/P (MAP) 156/67 (96) Pulse Ox 99 O2 Delivery Room Air Intake and Output 11/24/20 11/24/20 11/25/20 15:00 23:00 07:00 Intake Total 200 ml 0 ml Output Total 100 ml 400 ml Balance 100 ml -400 ml Justifications for Admission Other Justification CARMITA WALL MD Nov 25, 2020 09:07
[2020-11-25] MEDS: levETIRAcetam 500 MG TABLET PO SCH ×2 (09:19→21:38)
[2020-11-25] MEDS: CINACALCET HCL 30 MG TABLET PO SCH (09:19)
[2020-11-25] MEDS: HYDROcodone/APAP 5/325MG 1 TAB TABLET PO PRN ×2 (09:19→19:16)
[2020-11-25] MEDS: CYCLOBENZAPRINE 10 MG TABLET. PO SCH ×2 (09:20→21:37)
[2020-11-25] MEDS: cloNIDine HCL 0.1 MG TABLET PO SCH ×3 (09:20→21:37)
[2020-11-25] MEDS: FOLIC/VIT B COMP W-C (RENAL) TABLET. PO SCH (09:20)
[2020-11-25] MEDS: ASPIRIN ENTERIC COATED 81 MG TABLET.DR. PO SCH (09:20)
[2020-11-25] MEDS: CALCIUM ACETATE 667 MG CAPSULE PO SCH ×3 (09:20→17:46)
[2020-11-25] MEDS: CITALOPRAM 10 MG TABLET. PO SCH (09:21)
[2020-11-25] MEDS: SENNOSIDES 8.6 MG TABLET PO SCH ×2 (09:21→21:38)
[2020-11-25] MEDS: CLOPIDOGREL BISULFATE 75 MG TABLET PO SCH (09:24)
[2020-11-25] MEDS: ALLOPURINOL 100 MG TABLET. PO SCH (09:25)
[2020-11-25] MEDS ORDERED: IV NORMAL SALINE 1000ML BAG 1,000 ML IV PRN ×2 (10:15)
[2020-11-25] MEDS ORDERED: DIALYSIS PATIENT. MC PRN (10:15)
--- NOTE | 2020-11-25 10:18 | PDOC ---
DATE OF SERVICE DATE: 11/25/20 TIME: 10:18 SUBJECTIVE ROS seen on Dialysis , no complaints OBJECTIVE Vital Signs Vital Signs Date Time Temp Pulse Resp B/P (MAP) Pulse Ox O2 Delivery O2 Flow Rate FiO2 11/25/20 09:20 66 156/67 11/25/20 09:19 99 Room Air 11/25/20 07:00 97.2 20 97.2 I & 0 Intake and Output 11/25/20 07:00 Intake Total 200 ml Output Total 500 ml Balance -300 ml Intake Oral 200 ml Output Urine Total 500 ml PHYSICAL EXAM Physical Exam GEN NAD HEENT: OM moist NECK: Supple LUNGS: Decreased in the bases. HEART: S1, S2. ABDOMEN: Obese, soft, nontender, no guarding or rebound. EXTREMITIES: Without clubbing or cyanosis. No gross edema. SKIN: Warm to touch without generalized signs of rash. N DIAGNOSIS/ASSESSMENT Assessment & Plan ESRD: MWF schedule. Seen on Dialysis, tolerating well, Continue as ordered , Aaron HATCH infection. Diabetes. Hypertension. COMMENT/RELEVANT DATA Meds Current Medications Medications (Trade) Dose Ordered Sig/Yumiko Start Time Stop Time Status Last Admin Dose Admin Acetaminophen/ Butalbital/ Caffeine (Fioricet) 1 tab PRN Q6HRS PRN 11/24/20 11:45 Acetaminophen/ Hydrocodone Bitart (Lortab 5/325) 1 tab PRN Q6HRS PRN 11/24/20 11:45 11/25/20 09:19 1 TAB Albuterol Sulfate (Ventolin Neb Soln) 2.5 mg RTQID 11/24/20 12:00 11/24/20 15:53 2.5 MG Allopurinol (Zyloprim) 100 mg DAILY 11/24/20 12:00 11/25/20 09:25 100 MG Alprazolam (Xanax) 0.25 mg PRN BID PRN 11/24/20 11:45 Amlodipine Besylate (Norvasc) 5 mg DAILY 11/24/20 12:00 11/25/20 09:20 5 MG Aspirin (Ecotrin) 81 mg DAILY 11/24/20 12:00 11/25/20 09:20 81 MG Atorvastatin Calcium (Lipitor) 20 mg QHS 11/24/20 21:00 11/24/20 21:00 20 MG Calcium Acetate (Phoslo) 2,001 mg TIDWMEALS 11/24/20 12:00 11/25/20 09:20 2,001 MG Cinacalcet (Sensipar) 30 mg DAILY 11/24/20 12:00 11/25/20 09:19 30 MG Citalopram Hydrobromide (CeleXA) 10 mg DAILY 11/24/20 12:00 11/25/20 09:21 10 MG Clonidine HCl (Catapres) 0.1 mg TID 11/24/20 12:00 11/25/20 09:20 0.1 MG Clopidogrel Bisulfate (Plavix) 75 mg DAILY 11/24/20 12:00 11/25/20 09:24 75 MG Cyclobenzaprine HCl (Flexeril) 10 mg BID 11/24/20 12:00 11/25/20 09:20 10 MG Dextrose (Dextrose 50%-Water Syringe) 12.5 gm PRN Q15MIN PRN 11/24/20 11:45 Gabapentin (Neurontin) 300 mg HS 11/24/20 21:00 11/24/20 20:59 300 MG Heparin Sodium (Porcine) (Heparin Sodium) 5,000 unit Q8HRS 11/24/20 14:00 11/25/20 06:17 5,000 UNIT Hydralazine HCl (Apresoline Inj) 10 mg PRN Q4HRS PRN 11/24/20 16:30 11/25/20 03:48 10 MG Info (PHARMACY MONITORING -- do not chart) 1 each PRN DAILY PRN 11/25/20 10:15 Insulin Glargine (Lantus Syringe) 8 unit QHS 11/24/20 21:00 Insulin Human Lispro (HumaLOG) 0-5 UNITS TIDWMEALS 11/24/20 12:00 Levetiracetam (Keppra) 500 mg BID 11/24/20 12:00 11/25/20 09:19 500 MG Metoclopramide HCl (Reglan) 5 mg QIDACHS 11/24/20 12:00 11/25/20 09:20 5 MG Metoprolol Succinate (Toprol Xl) 25 mg QHS 11/24/20 21:00 11/24/20 20:59 25 MG Morphine Sulfate (Morphine Sulfate) 2 mg PRN Q2HR PRN 11/24/20 02:45 11/25/20 02:44 DC Non-Formulary Medication (Naloxegol Oxalate (Movantik)) 25 mg DAILY 11/25/20 09:00 UNV Ondansetron HCl (Zofran) 4 mg PRN Q8HRS PRN 11/24/20 02:45 11/25/20 02:44 DC Pantoprazole Sodium (Protonix) 40 mg DAILYAC 11/24/20 12:00 11/25/20 09:21 40 MG Sennosides (Senna) 8.6 mg BID 11/24/20 12:00 11/25/20 09:21 8.6 MG Sodium Chloride 1,000 ml @ 400 mls/hr Q2H30M PRN 11/25/20 10:15 11/25/20 22:14 Vitamin B Complex/ Vitamin C (Makayla-Britton) 1 tab DAILY 11/24/20 12:00 11/25/20 09:20 1 TAB Lab Laboratory Tests Test 11/24/20 18:23 11/24/20 21:06 11/25/20 08:11 Glucose (Fingerstick) 139 mg/dL (70-99) 129 mg/dL (70-99) 100 mg/dL (70-99) Results All relevant outside records, renal labs, imaging studies, telemetry/EKG's were reviewed. Justicifation of Admission Dx: Justifications for Admission: Justification of Admission Dx: N/A LILI OCASIO MD Nov 25, 2020 10:18
[2020-11-25 11:00] VITALS: BP 133/60
--- NOTE | 2020-11-25 12:53 | NUR ---
SS following for discharge planning. SS reviewed pt chart and discussed with pt RN. Pt is from home and is currently on room air. COVID19 positive. Pt has outpatient dialysis at [facility], ; fax [phone]. SS contacted [facility] and discussed. SS was notified that pt was now scheduled at [facility], ; fax [phone], Wednesday, , and Wednesday at 0800. SS was notified that pt has transportation scheduled through [employer]. Pt's RN notified. SS will continue to follow for discharge planning.
[2020-11-25 19:50] VITALS: BP 134/62
[2020-11-25] MEDS: INSULIN GLARGINE SYRINGE. SQ SCH (21:00)
[2020-11-25] MEDS: ATORVASTATIN CALCIUM 20 MG TABLET PO SCH (21:37)
[2020-11-25] MEDS: METOPROLOL SUCC 24HR ER 25 MG TAB.ER.24H. PO SCH (21:38)
[2020-11-25] MEDS: GABAPENTIN 300 MG CAPSULE. PO SCH (21:38)
--- NOTE | 2020-11-25 22:38 | NUR ---
TRANSFERED PT TO ROOM 668. EXPLAINED TO PT, TOOK HER BELONGINGS.CHONGN
[2020-11-25 23:00] VITALS: BP 140/71
[2020-11-26 03:00] VITALS: BP 135/56
[2020-11-26] MEDS: HEPARIN for SUB-Q USE 5,000 UNIT/ML VIAL. SQ SCH ×2 (05:15→13:52)
[2020-11-26] MEDS: HYDROcodone/APAP 5/325MG 1 TAB TABLET PO PRN ×2 (05:27→11:57)
[2020-11-26 07:00] VITALS: BP 147/56
[2020-11-26] MEDS: ALBUTEROL SULFATE 2.5 MG/3 ML NEBU. NEB SCH ×3 (08:00→14:30)
[2020-11-26] MEDS: INSULIN LISPRO 300 UNITS/3 ML VIAL. SQ SCH ×3 (08:00→12:00)
[2020-11-26] MEDS: ASPIRIN ENTERIC COATED 81 MG TABLET.DR. PO SCH (08:49)
[2020-11-26] MEDS: ALLOPURINOL 100 MG TABLET. PO SCH (08:49)
[2020-11-26] MEDS: SENNOSIDES 8.6 MG TABLET PO SCH (08:49)
[2020-11-26] MEDS: levETIRAcetam 500 MG TABLET PO SCH (08:49)
[2020-11-26] MEDS: CINACALCET HCL 30 MG TABLET PO SCH (08:49)
[2020-11-26] MEDS: cloNIDine HCL 0.1 MG TABLET PO SCH ×2 (08:49→13:52)
[2020-11-26] MEDS: CALCIUM ACETATE 667 MG CAPSULE PO SCH ×2 (08:50→12:00)
[2020-11-26] MEDS: CYCLOBENZAPRINE 10 MG TABLET. PO SCH (08:50)
[2020-11-26] MEDS: FOLIC/VIT B COMP W-C (RENAL) TABLET. PO SCH (08:50)
[2020-11-26] MEDS: CLOPIDOGREL BISULFATE 75 MG TABLET PO SCH (08:51)
[2020-11-26] MEDS: METOCLOPRAMIDE 10 MG TABLET. PO SCH ×2 (08:51→11:59)
[2020-11-26] MEDS: CITALOPRAM 10 MG TABLET. PO SCH (08:53)
--- NOTE | 2020-11-26 09:06 | PDOC ---
PROGRESS NOTES Date of Service: DATE: 11/26/20 TIME: 09:06 Subjective Subjective feels ok Objective Objective Vital Signs Date Time Temp Pulse Resp B/P (MAP) Pulse Ox O2 Delivery O2 Flow Rate FiO2 11/26/20 08:50 62 147/56 11/26/20 07:00 95.2 18 97 Room Air 95.2 Intake and Output 11/26/20 07:00 Intake Total 460 ml Output Total 800 ml Balance -340 ml Intake Oral 460 ml Output Urine Total 800 ml Physical Exam Abdomen: Soft Heart: Regular rate, Normal S1 General: Alert MUSCULOSKELETAL: No deformity, No swelling Neuro: Normal speech Psych/Mental Status: Mental status NL Skin: No breakdown Diagnosis Problem List Problems Medical Problems: (1) Abdominal pain Status: Acute (2) COVID-19 Status: Acute (3) Diarrhea Status: Acute Assessment Assessment Problems Medical Problems: (1) Abdominal pain Status: Acute (2) COVID-19 Status: Acute (3) Diarrhea Status: Acute FINAL IMPRESSION: 1. COVID infection. 2. Unable to do dialysis because this patient is COVID and the dialysis center not accepting COVID patient, missed dialysis for Wednesday and Wednesday this week. 3. End-stage renal disease, on hemodialysis. 4. History of previous strokes. 5. History of seizures. 6. Diabetes. 7. Hypertension. 8. Morbid obesity. PLAN: d/c home today dialysis yesterday. social service consult [facility] . Plan Plan of Care Problems Medical Problems: (1) Abdominal pain Status: Acute (2) COVID-19 Status: Acute (3) Diarrhea Status: Acute Comment Review of Relevant I have reviewed the following items gabbi (where applicable) has been applied. Labs Laboratory Tests Test 11/25/20 10:15 11/25/20 16:43 11/25/20 20:40 11/26/20 08:24 Glucose (Fingerstick) 122 mg/dL (70-99) 80 mg/dL (70-99) 116 mg/dL (70-99) 81 mg/dL (70-99) Medications Current Medications Info (PHARMACY MONITORING -- do not chart) 1 each PRN DAILY PRN MC SEE COMMENTS; Start 11/25/20 at 10:15 Sodium Chloride 1,000 ml @ 400 mls/hr Q2H30M PRN IV PATENCY; Start 11/25/20 at 10:15; Stop 11/25/20 at 22:14; Status DC Sodium Chloride 1,000 ml @ 1,000 mls/hr Q1H PRN IV hypotension; Start 11/25/20 at 10:15; Stop 11/25/20 at 16:20; Status DC Vitals/I & O Vital Sign - Last 24 Hours 11/25/20 11/25/20 11/25/20 11/25/20 09:19 09:20 09:20 10:19 Pulse 66 66 B/P (MAP) 156/67 156/67 Pulse Ox 99 99 O2 Delivery Room Air Room Air 11/25/20 11/25/20 11/25/20 11/25/20 11:00 17:46 19:16 19:50 Temp 97.4 98.1 97.4 98.1 Pulse 65 65 64 Resp 18 18 B/P (MAP) 133/60 (84) 133/60 134/62 (86) Pulse Ox 98 98 97 O2 Delivery Room Air Room Air Room Air 11/25/20 11/25/20 11/25/20 11/25/20 20:00 21:37 21:38 23:00 Temp 96.8 96.8 Pulse 64 64 59 Resp 20 B/P (MAP) 134/62 134/62 140/71 (94) Pulse Ox 98 O2 Delivery Room Air Room Air 11/26/20 11/26/20 11/26/20 11/26/20 03:00 05:27 06:27 07:00 Temp 96.3 95.2 96.3 95.2 Pulse 55 62 Resp 20 18 18 18 B/P (MAP) 135/56 (82) 147/56 (86) Pulse Ox 97 96 97 O2 Delivery Room Air Room Air Room Air Room Air 11/26/20 11/26/20 08:49 08:50 Pulse 62 62 B/P (MAP) 147/56 147/56 Intake and Output 11/25/20 11/25/20 11/26/20 15:00 23:00 07:00 Intake Total 360 ml 100 ml Output Total 400 ml 400 ml 0 ml Balance -400 ml -40 ml 100 ml Justifications for Admission Other Justification CARMITA WALL MD Nov 26, 2020 09:06
[2020-11-26 11:00] VITALS: BP 146/62
--- NOTE | 2020-11-26 12:16 | PDOC ---
DATE OF SERVICE DATE: 11/26/20 TIME: 12:16 SUBJECTIVE ROS stable OBJECTIVE Vital Signs Vital Signs Date Time Temp Pulse Resp B/P (MAP) Pulse Ox O2 Delivery O2 Flow Rate FiO2 11/26/20 11:57 16 97 Room Air 11/26/20 08:50 62 147/56 11/26/20 07:00 95.2 95.2 I & 0 Intake and Output 11/26/20 07:00 Intake Total 460 ml Output Total 800 ml Balance -340 ml Intake Oral 460 ml Output Urine Total 800 ml PHYSICAL EXAM Physical Exam GEN NAD HEENT: OM moist NECK: Supple LUNGS: Decreased in the bases. HEART: S1, S2. ABDOMEN: Obese, soft, nontender, no guarding or rebound. EXTREMITIES: Without clubbing or cyanosis. No gross edema. SKIN: Warm to touch without generalized signs of rash. N DIAGNOSIS/ASSESSMENT Assessment & Plan ESRD: MWF schedule. Currently no indication for HD COVID infection. Diabetes. Hypertension. COMMENT/RELEVANT DATA Meds Current Medications Medications (Trade) Dose Ordered Sig/Yumiko Start Time Stop Time Status Last Admin Dose Admin Acetaminophen/ Butalbital/ Caffeine (Fioricet) 1 tab PRN Q6HRS PRN 11/24/20 11:45 Acetaminophen/ Hydrocodone Bitart (Lortab 5/325) 1 tab PRN Q6HRS PRN 11/24/20 11:45 11/26/20 11:57 1 TAB Albuterol Sulfate (Ventolin Neb Soln) 2.5 mg RTQID 11/24/20 12:00 11/24/20 15:53 2.5 MG Allopurinol (Zyloprim) 100 mg DAILY 11/24/20 12:00 11/26/20 08:49 100 MG Alprazolam (Xanax) 0.25 mg PRN BID PRN 11/24/20 11:45 11/25/20 21:38 0.25 MG Amlodipine Besylate (Norvasc) 5 mg DAILY 11/24/20 12:00 11/26/20 08:50 5 MG Aspirin (Ecotrin) 81 mg DAILY 11/24/20 12:00 11/26/20 08:49 81 MG Atorvastatin Calcium (Lipitor) 20 mg QHS 11/24/20 21:00 11/25/20 21:37 20 MG Calcium Acetate (Phoslo) 2,001 mg TIDWMEALS 11/24/20 12:00 11/26/20 12:00 2,001 MG Cinacalcet (Sensipar) 30 mg DAILY 11/24/20 12:00 11/26/20 08:49 30 MG Citalopram Hydrobromide (CeleXA) 10 mg DAILY 11/24/20 12:00 11/26/20 08:53 10 MG Clonidine HCl (Catapres) 0.1 mg TID 11/24/20 12:00 11/26/20 08:49 0.1 MG Clopidogrel Bisulfate (Plavix) 75 mg DAILY 11/24/20 12:00 11/26/20 08:51 75 MG Cyclobenzaprine HCl (Flexeril) 10 mg BID 11/24/20 12:00 11/26/20 08:50 10 MG Dextrose (Dextrose 50%-Water Syringe) 12.5 gm PRN Q15MIN PRN 11/24/20 11:45 Gabapentin (Neurontin) 300 mg HS 11/24/20 21:00 11/25/20 21:38 300 MG Heparin Sodium (Porcine) (Heparin Sodium) 5,000 unit Q8HRS 11/24/20 14:00 11/26/20 05:15 5,000 UNIT Hydralazine HCl (Apresoline Inj) 10 mg PRN Q4HRS PRN 11/24/20 16:30 11/25/20 03:48 10 MG Info (PHARMACY MONITORING -- do not chart) 1 each PRN DAILY PRN 11/25/20 10:15 Insulin Glargine (Lantus Syringe) 8 unit QHS 11/24/20 21:00 Insulin Human Lispro (HumaLOG) 0-5 UNITS TIDWMEALS 11/24/20 12:00 Levetiracetam (Keppra) 500 mg BID 11/24/20 12:00 11/26/20 08:49 500 MG Metoclopramide HCl (Reglan) 5 mg QIDACHS 11/24/20 12:00 11/26/20 11:59 5 MG Metoprolol Succinate (Toprol Xl) 25 mg QHS 11/24/20 21:00 11/25/20 21:38 25 MG Morphine Sulfate (Morphine Sulfate) 2 mg PRN Q2HR PRN 11/24/20 02:45 1/4/21 02:44 DC Non-Formulary Medication (Naloxegol Oxalate (Movantik)) 25 mg DAILY 11/25/20 09:00 UNV Ondansetron HCl (Zofran) 4 mg PRN Q8HRS PRN 11/24/20 02:45 11/25/20 02:44 DC Pantoprazole Sodium (Protonix) 40 mg DAILYAC 11/24/20 12:00 11/25/20 09:21 40 MG Sennosides (Senna) 8.6 mg BID 11/24/20 12:00 11/26/20 08:49 8.6 MG Sodium Chloride 1,000 ml @ 400 mls/hr Q2H30M PRN 11/25/20 10:15 11/25/20 22:14 DC Vitamin B Complex/ Vitamin C (Makayla-Britton) 1 tab DAILY 11/24/20 12:00 11/26/20 08:50 1 TAB Lab Laboratory Tests Test 11/25/20 16:43 11/25/20 20:40 11/26/20 08:24 11/26/20 11:32 Glucose (Fingerstick) 80 mg/dL (70-99) 116 mg/dL (70-99) 81 mg/dL (70-99) 95 mg/dL (70-99) Results All relevant outside records, renal labs, imaging studies, telemetry/EKG's were reviewed. Justicifation of Admission Dx: Justifications for Admission: Justification of Admission Dx: N/A LILI OCASIO MD Nov 26, 2020 12:16
--- NOTE | 2020-11-26 13:27 | NUR ---
SW following for discharge planning. Spoke with RN and reviewed chart. Pt on room air and oral medications. Pt remains COVID positive. Pt to discharge home today, self-care with resumption of dialysis at [facility], , (fax). AMELIA faxed discharge paperwork to [facility] and confirmed with the clinic that pt's chair time is 8am on TRS. Pt ok to resume treatment tomorrow, 11/27 at [place] location. Spoke with Zeenat at pt's home clinic, [facility] ([phone]) and conformed transportation has been arranged with [employer] to the [facility] location. SW also provided pt with an application for [employer] as another option to [employer]. Pt requires COVID positive wc transportation home today. AMELIA confirmed home address with daughter Hannah ([phone]) and arranged for transportation with [employer] ([phone]) for 1630. RN notified. No further SW needs. [address] [phone]
[2020-11-26 15:00] VITALS: BP 136/56
--- NOTE | 2020-11-26 16:30 | NUR ---
Discharge Note: MARKUS HE J6 [facility] Discharge instructions and discharge home medications reviewed with Patient and a copy given. All questions have been answered and understanding verbalized. The following instructions and handouts were given: f/u with PCP within one week. Continue dialysis schedule Tues/Thurs/ Sat 0800 at [facility]. Packet about [employer] [facility] given to patient. Pt clothing on her at the time of transport. Pt daughter Amando Adam notified of patient being picked up. Discontinued lines and drains: Peripheral IV intact. Patient discharged to Home or Self Care with Self via Wheelchair.
--- NOTE | 2020-12-01 10:34 | PDOC ---
Provider Note Date of Service: DATE: 12/01/20 TIME: 10:33 Provider Note Discharge summary dictated.#[id number]. Justifications for Admission Other Justification CARMITA WALL MD Dec 01, 2020 10:34
--- NOTE | 2020-12-01 10:41 | DS ---
DATE OF DISCHARGE: 11/26/2020 REASON FOR ADMISSION TO THE HOSPITAL: COVID infection and end-stage renal disease. CONSULTATIONS: Ricky Root MD PROCEDURES DONE: Hemodialysis. HOSPITAL COURSE: The patient is a 70-year-old female, morbidly obese, previous stroke. The patient was found to have COVID infection. The dialysis unit where she goes and they not taking COVID patients and she does not have a transportation set up to go to a different dialysis unit. So, the patient was without dialysis for 3 days and the patient came to the Emergency Room and the patient was seen by Dr. Ricky Root, Renal. The patient was dialyzed in the hospital and her creatinine and potassium remained stable and after that, the patient was discharged to home and different outpatient dialysis unit was set up with transportation for the patients with COVID. The patient did not require any oxygen or remdesivir at this time and the patient had a CT of the abdomen, which was nonspecific. FINAL DIAGNOSES: 1. COVID infection. 2. End-stage renal disease, on hemodialysis. 3. History of previous stroke. 4. Morbid obesity. 5. Diabetes. 6. Hypertension. 7. Hyperlipidemia. DISPOSITION: The patient is discharged home, scheduled with the outpatient dialysis at a different unit because of recent COVID and otherwise no changes in discharge medications. CARMITA WALL MD DR: EDIE/ayan JOB#: [id number] / [id number]
== END 2020-11-26 16:30 | disposition home or self-care (01) | DRG 177 ==
LOC: ER 21:33 → ED HOLD 11-24 05:04 → 2 SOUTH 11-24 07:11 → 6 SOUTH 11-25 22:03
PROVIDERS: ADMIT Internal Medicine; ATTEND Internal Medicine
PROC: 5A1D70Z Performance of Urinary Filtration, Intermittent, Less than 6 Hours Per Day (ICD-10-PCS; principal; 2020-11-25)
DX: U07.1 COVID-19 (principal); N18.6 End stage renal disease; I13.2 Hypertensive heart and chronic kidney disease with heart failure and with stage 5 chronic kidney disease, or end stage renal disease; I69.354 Hemiplegia and hemiparesis following cerebral infarction affecting left non-dominant side; E11.22 Type 2 diabetes mellitus with diabetic chronic kidney disease; F32.9 Major depressive disorder, single episode, unspecified; F41.9 Anxiety disorder, unspecified; K21.9 Gastro-esophageal reflux disease without esophagitis; M10.9 Gout, unspecified; M06.9 Rheumatoid arthritis, unspecified; I50.9 Heart failure, unspecified; J45.909 Unspecified asthma, uncomplicated; D64.9 Anemia, unspecified; J44.9 Chronic obstructive pulmonary disease, unspecified; E66.01 Morbid (severe) obesity due to excess calories; Z68.36 Body mass index [BMI] 36.0-36.9, adult; Z99.2 Dependence on renal dialysis; Z91.15 Patient's noncompliance with renal dialysis; Z87.891 Personal history of nicotine dependence; Z90.710 Acquired absence of both cervix and uterus; Z88.8 Allergy status to other drugs, medicaments and biological substances; Z90.49 Acquired absence of other specified parts of digestive tract; Z84.1 Family history of disorders of kidney and ureter; Z82.49 Family history of ischemic heart disease and other diseases of the circulatory system
CPT/HCPCS: 36415; 71045; 74176; 80053; 82962; 83690; 85025; 94640; J0360; J1644; J1815; 99285-25; G0378; J7613